=== PATIENT | female | born 1945 | race Caucasian/White ===

== ENCOUNTER 2023-01-17 08:26 | Observation (INO) | payer MEDICARE, OTHER, SELFPAY ==
[2023-01-17] VITALS (24 sets, daily range): BP systolic 122–192; BP diastolic 62–79; PULSE 56–84; RESP 11–22; TEMP 36.2–37.1; O2SAT 93–100; BMI 25.8
--- NOTE | 2023-01-17 | OP_ITS ---
OPERATIVE DATE: ??01/17/2023 PREOPERATIVE DIAGNOSIS:? Hydronephrosis with ureteral calculus and flank pain, left. POSTOPERATIVE DIAGNOSIS:? Hydronephrosis with ureteral calculus and flank pain, left. PROCEDURE:? Cystoscopy, left retrograde pyelogram, left ureteroscopy, holmium laser ablation, ureteral calculus with ureteroscopic stone basket extraction of fragments, followed by a left double J stent placed under fluoroscopic guidance. INDICATIONS:? In short, this is a 77-year-old female with a positive prior history of kidney stone, who presents with about a 7 mm stone in the upper portion of the distal ureter, and she wishes operative intervention with the inherent risks all discussed.? She understood the risks of bleeding, infection, stent pain and need for further surgical intervention.? She understood the risk of anesthesia itself.? Again, she does have sequential compression devices in place and functional on the bilateral lower extremities throughout the case.? She did receive antibiotics. PROCEDURE:? The patient was brought back to the operating room and, after the time out was performed, all were in agreement with the operative plan.? After the successful induction of anesthesia, she was placed in the modified dorsolithotomy position and prepped in the usual fashion with Betadine solution.? She was draped appropriately.? 2% percent Xylocaine jelly was placed per urethra and a well lubricated 22-Ethiopian cystourethroscope with 30 degree lens was then passed into the bladder without difficulty.? John endoscopy revealed no tumors, no stones, no diverticula.? Once into the bladder, left retrograde pyelogram was performed, and there appears to be a filling defect consistent with a distal stone.? I was able to negotiate a 0.035 Glidewire up beyond the stone and into the kidney.? The cystoscope was removed.? I then placed a semi-rigid ureteroscope up the left ureter, alongside the stent.? The stone was subsequently encountered, but I felt it was too large to simply engage and remove with the basket.? In fact, I did make an attempt to do so, but it was becoming stuck.? The stone was released from the basket.? The laser fiber was subsequently passed up through the ureteroscope and, utilizing the holmium laser, the stone was ablated into several pieces and these were subsequently basket extracted.? The larger portions of stone were sent to Pathology for evaluation. Ureteroscopy was carried up to the level of the mid ureter.? Upon completion, the safety wire was left in place, the ureteroscope was removed, the cystoscope was backloaded over the wire, and a 4.7 Ethiopian Bard inlay double J stent was passed into the left kidney.? Wire removed and there was good curl within the kidney and urinary bladder.? The bladder was emptied, scope removed and the procedure was terminated.? She tolerates it well.? She is transferred to the rdover and then back to PACU in satisfactory condition, stable vital signs.? Plan will be for transfer to the floor for postoperative management and hopefully discharge home tomorrow. She can then be seen in the outpatient setting for stent removal within the next 2-3 weeks.? Discussed all this with the patient?s post-op, and he is in agreement with the plan. JOVANI
--- NOTE | 2023-01-17 08:42 | CT_ITS ---
[address] [address] Patient Name: PETER GLASS MRN: [id number] date: 1945 Sex: F Assigned Patient Location: ED.MAIN Current Patient Location: Accession/Order Number: [id number] Exam Date: 01/17/2023 09:58 Report Date: 01/17/2023 10:52 At the request of: LATOYA SÁNCHEZ Procedure: CT abdomen pelvis w con EXAMINATION: CT abdomen pelvis w con HISTORY: left kidney stone , acute left flank pain COMPARISON: CT abdomen pelvis 10/21/2016 TECHNIQUE: Axial, Coronal, and Sagittal images were obtained without and/or with IV contrast as indicated by examination type. Dose reduction techniques were achieved by using automated exposure control and/or adjustment of mA and/or kV according to patient size and/or use of iterative reconstruction technique. FINDINGS: LUNG BASES: No visible pulmonary or pleural disease. LIVER: A few small cysts versus hemangiomas. No enlargement, atrophy, suspicious density, or significant focal lesion. BILIARY: Cholecystectomy. PANCREAS: No lesion, fluid collection, or abnormal duct dilatation. SPLEEN: No enlargement or focal lesion. ADRENALS: No mass or enlargement. KIDNEYS: Mild left hydronephrosis and hydroureter secondary to a partially obstructing 7 x 6 x 5 mm stone within the distal ureter approximately 3 cm from the ureterovesical junction. Unremarkable right kidney and ureter. No appreciable additional urinary tract calculi. BOWEL/MESENTERY: Marked diverticulosis of the sigmoid colon, along with numerous diverticula scattered along the length of the colon. No visible mass, obstruction, or bowel wall thickening. AORTA/VASCULAR: No aneurysm or dissection. RETROPERITONEUM: No mass or adenopathy. LYMPH NODES: No adenopathy. URINARY BLADDER: No visible focal wall thickening, lesion, or calculus. PELVIC ORGANS: Hysterectomy. ABDOMINAL WALL: No mass or hernia. BONES: No bony lesion or fracture. OTHER: Negative. IMPRESSION: 1.Mild left hydronephrosis secondary to a partially obstructing 7 x 6 x 5 mm stone within the distal ureter. 2.Marked sigmoid diverticulosis without acute diverticulitis. Electronically authenticated by: RITA HUERTA Date: 01/17/2023 10:52
--- NOTE | 2023-01-17 08:44 | ED_ITS ---
HPI - General Adult General Chief complaint: Abdominal Pain Stated complaint: FLANK PAIN Time Seen by Provider: 01/17/23 08:42 Source: patient Mode of arrival: Wheelchair Limitations: no limitations History of Present Illness HPI narrative: patient is a 77-year-old female who is presenting to the Emergency Room with left lower back pain this started when she was urinating this morning at 7 AM. Patient's pain has resolved during history and physical at 9 AM. Patient has had a kidney stone in the past, she had stents placed as well. Dr. Hilario was her urologist. Patient is at bedside. Yesterday patient did not heeavy lifting, twisting or turning. Patient has no fever or chills. Patient has no other acute complaints this time. Patient did have some nausea, no vomiting. No chest pain or shortness of breath. Patient like the pain radiated somewhat to the left flank and left lower quadrant. Patient has no urinary frequency or urgency or burning. No other acute complaints this time. Related Data Home Medications Medication Instructions Recorded Confirmed VITAMIIN D 1,000 mg PO DAILY 01/17/23 01/17/23 aspirin 81 mg tablet,delayed 81 mg PO DAILY 01/17/23 01/17/23 release (Adult Aspirin Regimen) atorvastatin 40 mg tablet 40 mg PO DAILY 01/17/23 01/17/23 levothyroxine 75 mcg tablet 75 mcg PO DAILY 01/17/23 01/17/23 lisinopril 10 1 tab PO DAILY 01/17/23 01/17/23 mg-hydrochlorothiazide 12.5 mg tablet metformin 500 mg tablet 500 mg PO .2 TIMES PER DAY 01/17/23 01/17/23 metoprolol succinate 25 mg 25 mg PO Q12H 01/17/23 01/17/23 tablet,extended release 24 hr Allergies Allergy/AdvReac Type Severity Reaction Status Date / Time bacitracin Allergy Severe Hives Verified 01/17/23 08:32 [From Neosporin ([id number])] codeine Allergy Severe Anaphylaxis Verified 01/17/23 08:32 neomycin Allergy Severe Hives Verified 01/17/23 08:32 [From Neosporin ([id number])] polymyxin B Allergy Severe Hives Verified 01/17/23 08:32 [From Neosporin ([id number])] Review of Systems ROS Narrative All systems are negative except as noted/marked. All systems reviewed and otherwise negative. [facility] Social History Smoking status: Never smoker Exam Narrative Exam Narrative: Nurses note and vital signs reviewed and patient is not hypoxic. General: The patient appears well and in no apparent distress. Patient is resting comfortably on cart. Patient is not toxic, lethargic, or listless Skin: Warm, dry, no pallor noted. There is no rash noted. No petechiae, purpura. Head: Normocephalic, atraumatic Eye: Normal conjunctiva, no drainage, EOMI. PERRL Ears, Nose, Mouth, and Throat: oral mucosa is moist. Nares patent. Mouth without vesicles. Cardiovascular: Regular Rate and Rhythm, no murmur, gallop, rub Respiratory: Patient is in no distress, no accessory muscle use, lungs are clear to auscultation, no wheezing, rales or rhonchi Back: patient currently has no tenderness to palpation to the left lumbar area, rash, otherwise non-tender, no CVA tenderness bilaterally to percussion. No CT LS midline pain GI: soft, no tenderness to palpation, no masses appreciated. No rebound, guarding, or rigidity noted. No flank pain bilateral, No distention. Mild suprapubic tenderness to palpation. Musculoskeletal: Patient has full range of motion of all of the extremities, no motor, sensory, or focal neurological deficits Neurological: A&O x3, normal speech Psychiatric: Cooperative Constitutional Vital Signs - 24 hr 01/17/23 08:33 01/17/23 08:34 01/17/23 08:40 Temperature 98.1 F Pulse Rate 62 Pulse Rate [Monitor] 73 Respiratory Rate 18 22 Blood Pressure Blood Pressure [Left Arm] 122/62 H Pulse Oximetry 100 99 99 Oxygen Delivery Method Room Air 01/17/23 08:50 01/17/23 09:02 01/17/23 09:10 Temperature Pulse Rate 57 L 84 59 L Pulse Rate [Monitor] Respiratory Rate 21 13 Blood Pressure Blood Pressure [Left Arm] Pulse Oximetry 99 98 Oxygen Delivery Method 01/17/23 09:20 01/17/23 09:30 01/17/23 09:40 Temperature Pulse Rate 57 L 65 74 Pulse Rate [Monitor] Respiratory Rate 15 20 17 Blood Pressure Blood Pressure [Left Arm] Pulse Oximetry 98 96 97 Oxygen Delivery Method 01/17/23 09:50 01/17/23 10:13 01/17/23 10:19 Temperature Pulse Rate 57 L 71 59 L Pulse Rate [Monitor] Respiratory Rate 20 22 11 L Blood Pressure 169/72 H Blood Pressure [Left Arm] Pulse Oximetry 96 93 L 97 Oxygen Delivery Method 01/17/23 10:19 Temperature Pulse Rate 66 Pulse Rate [Monitor] Respiratory Rate 14 Blood Pressure Blood Pressure [Left Arm] Pulse Oximetry 99 Oxygen Delivery Method Course Vital Signs Vital signs: Vital Signs Temperature 98.1 F 01/17/23 08:33 Pulse Rate 73 01/17/23 08:33 Respiratory Rate 18 01/17/23 08:33 Blood Pressure 122/62 H 01/17/23 08:33 Pulse Oximetry 100 01/17/23 08:33 Oxygen Delivery Method Room Air 01/17/23 08:33 Temperature 98.1 F 01/17/23 08:33 Pulse Rate 66 01/17/23 10:19 Respiratory Rate 14 01/17/23 10:19 Blood Pressure 169/72 H 01/17/23 10:19 Pulse Oximetry 99 01/17/23 10:19 Oxygen Delivery Method Room Air 01/17/23 08:33 Medical Decision Making MDM Narrative Medical decision making narrative: [address] Marquez, patient is to remain nothing by mouth and make sure that every time patient urinates she is urinating uses a strainer. This information was given to the patient and Nati RN. This information will be passed by Anita RN to the nursing floor as well. patient is going to be going to surgery later this afternoon because the chances or passing this stone at the distal ureter, 3 cm before the left UVJ is very small. Patient and are aware of this. Patient's potassium is 3.2, she was going to be given potassium to drink but now she will not be secondary to surgery. Dr. Marquez and other recommendations at this time Patient will be admitted to Dr. Cox. Dr. Cox is aware to replace potassium prior to discharge. He is aware of urine strainers every time they patient urinates. Also aware of keeping patient nothing by mouth. Patient has not used any other pain medication or nausea medication besides initial Toradol and Zofran given. Patient did receive IV fluids. Patient be any creatinine 29/08. Patient is concerned about her blood sugars, she is diabetic. Patient's blood sugars have been normal so far. They will be checked as needed, patient is aware of this. Patient be admitted to [facility] for surgery occurring later today. Medical Records Medical records narrative: CT report showed a left kidney stone in the distal ureter, 3 cm before the left UVJ. 7 x 6 x 5 cm, mild hydronephrosis. Please see the official report. Lab Data Lab results reviewed: Yes I reviewed the patient's lab results Labs: Lab Results 01/17/23 01/17/23 Range/Units 08:40 09:00 WBC 6.4 (4.0-11.0) 10^3/uL RBC 4.08 L (4.20-5.40) 10^6/uL Hgb 12.6 (12.0-16.0) g/dL Hct 38.4 (36.0-48.0) % MCV 94.1 (81.0-99.0) fL MCH 30.9 (26.7-34.0) pg MCHC 32.8 (29.9-35.2) g/dL RDW 12.8 (11.0-15.0) % Plt Count 243 (150-450) 10^3/uL MPV 10.9 (9.5-13.5) fL Neut % (Auto) 42.4 L (43.0-75.0) % Lymph % (Auto) 41.1 (20.5-60.0) % [facility] % (Auto) 8.0 (1.7-12.0) % Eos % (Auto) 7.1 H (0.9-7.0) % Baso % (Auto) 0.6 (0.2-2.0) % Neut # (Auto) 2.7 (1.4-6.5) 10^3/uL Lymph # (Auto) 2.6 (1.2-3.8) 10^3/uL [facility] # (Auto) 0.5 (0.3-0.8) 10^3/uL Eos # (Auto) 0.5 (0.0-0.7) 10^3/uL Baso # (Auto) 0.0 (0.0-0.1) 10^3/uL Abs Immat Gran (auto) 0.05 H (0.00-0.03) 10^3/uL Imm/Tot Granulo (auto) 0.8 H (0.0-0.5) % Sodium 139 (136-145) mmol/L Potassium 3.2 L (3.5-5.1) mmol/L Chloride 103 (98-107) mmol/L Carbon Dioxide 26.2 (21.0-32.0) mmol/L Anion Gap 13.0 BUN 19.0 H (7.0-18.0) mg/dL Creatinine 1.00 (0.55-1.02) mg/dL Est GFR ( Amer) >60 (>=60) Est GFR (Non-Af Amer) 53 L (>=60) BUN/Creatinine Ratio 19.0 Glucose 190 H (74-106) mg/dL Lactate 2.7 H* (0.4-2.0) mmol/L Calcium 9.1 (8.5-10.1) mg/dL Total Bilirubin 0.5 (0.2-1.0) mg/dL AST 17 (15-37) U/L ALT 24 (14-59) U/L Alkaline Phosphatase 66 (46-116) U/L Troponin I High Sens 6.0 (4.0-51.3) pg/mL Total Protein 7.0 (6.4-8.2) g/dL Albumin 3.7 (3.4-5.0) g/dL Globulin 3.3 g/dL Albumin/Globulin Ratio 1.1 Lipase 107.0 (73.0-393.0) U/L Urine Color Lt. yellow (YELLOW) Urine Clarity Clear (CLEAR) Urine pH 7.0 (5.0-9.0) Ur Specific [place] 1.020 (1.005-1.025) Urine Protein Trace (NEG/TRACE) mg/dL Urine Glucose (UA) Negative (NEGATIVE) mg/dL Urine Ketones Negative (NEGATIVE) mg/dL Urine Occult Blood Large A (NEGATIVE) Urine Nitrite Negative (NEGATIVE) Urine Bilirubin Negative (NEGATIVE) Urine Urobilinogen 1.0 (0.2-1.0) EU/dL Ur Leukocyte Esterase Negative (NEGATIVE) Urine RBC 50-75 A (0-2) #/HPF Urine WBC None seen (NONE SEEN) #/HPF Ur Squamous Epith Cells Few A (NONE/RARE) #/LPF Urine Crystals None seen (None Seen) #/HPF Urine Bacteria None seen (NONE SEEN) #/HPF Urine Casts None seen (NONE SEEN) #/LPF Urine Mucus None seen (NONE SEEN) Ur Culture Indicated? No ECG Data Attestation: I personally reviewed and interpreted this ECG as follows: Interpretation: EKG interpretation. Normal sinus rhythm at 59 beats a minute. Left axis deviation. No acute ST elevation, no acute ectopy. QTC of 406. Incomplete right bundle-branch block noted. Discharge Plan Discharge Chief Complaint: Abdominal Pain Clinical Impression: Kidney stone on left side, Hypokalemia Patient Disposition: Admitted as Observation Time of Disposition Decision: 12:45 Condition: Fair
[2023-01-17] MEDS: KETOROLAC TROMETHAMINE 30 MG/ML VIAL 15 MG IM (09:07)
[2023-01-17] MEDS: 0.9 % SODIUM CHLORIDE 1,000 ML 999 ML IV (09:07)
[2023-01-17] MEDS: ONDANSETRON PF 4 MG/2 ML VIAL IV (09:08)
[2023-01-17 09:18] LABS: Basophils Percent Auto 0.6 % (0.2-2.0); Eosinophils Absolute Auto 0.5 10^3/uL (0.0-0.7); Eosinophils Percent Auto 7.1 % (0.9-7.0); Hematocrit 38.4 % (36.0-48.0); Hemoglobin 12.6 g/dL (12.0-16.0); Immature Granulocytes Abs Auto 0.05 10^3/uL (0.00-0.03); Immature Granulocytes Pct Auto 0.8 % (0.0-0.5); Lymphocytes Absolute Auto 2.6 10^3/uL (1.2-3.8); Lymphocytes Percent Auto 41.1 % (20.5-60.0); Mean Corpuscular HGB Conc 32.8 g/dL (29.9-35.2); Mean Corpuscular Hemoglobin 30.9 pg (26.7-34.0); Mean Corpuscular Volume 94.1 fL (81.0-99.0); Mean Platelet Volume 10.9 fL (9.5-13.5); Monocytes Absolute Auto 0.5 10^3/uL (0.3-0.8); Neutrophils Absolute Auto 2.7 10^3/uL (1.4-6.5); Neutrophils Percent Auto 42.4 % (43.0-75.0); Platelet Count 243 10^3/uL (150-450); Red Blood Count 4.08 10^6/uL (4.20-5.40); Red Cell Distribution Width 12.8 % (11.0-15.0); White Blood Count 6.4 10^3/uL (4.0-11.0)
--- NOTE | 2023-01-17 09:25 | ECG_ITS ---
[facility] Test Date: 2023-01-17 Pat Name: PETER GLASS Department: Room: - Gender: Female Pharmacist Manager: : 1945 Requested By: HUGO SONI Order Number: [id number] Reading MD: HUGO SONI Measurements Intervals [place] Rate: 59 P: 26 VT: 160 QRS: -11 QRSD: 96 T: 3 QT: 406 QTc: 406 Interpretive Statements 1100 Sinus rhythm 2440 Incomplete right bundle branch block 8102 Low QRS voltage in chest leads 9130 borderline ECG No previous ECG available for comparison Electronically Signed On 01-18-2023 20:53:37 EDT by HUGO SONI
[2023-01-17 09:34] LABS: Alanine Aminotransferase 24 U/L (14-59); Albumin Globulin Ratio 1.1; Albumin Level 3.7 g/dL (3.4-5.0); Alkaline Phosphatase 66 U/L (46-116); Aspartate Amino Transferase 17 U/L (15-37); Bilirubin Total 0.5 mg/dL (0.2-1.0); Calcium 9.1 mg/dL (8.5-10.1); Carbon Dioxide 26.2 mmol/L (21.0-32.0); Chloride 103 mmol/L (98-107); Estimated GFR (African America >60 (>=60); Estimated GFR (Non-African Ame 53 (>=60); Globulin 3.3 g/dL; Glucose 190 mg/dL (74-106); Potassium 3.2 mmol/L (3.5-5.1); Sodium 139 mmol/L (136-145)
[2023-01-17 09:37] LABS: Lactate/Lactic Acid 2.7 mmol/L (0.4-2.0)
[2023-01-17 10:27] LABS: Bilirubin Urine NEGATIVE (NEGATIVE); Blood Urine LARGE (NEGATIVE); Clarity Urine CLEAR (CLEAR); Color Urine LT. YELLOW (YELLOW); Glucose Urine UA NEGATIVE (NEGATIVE); Ketones Urine NEGATIVE (NEGATIVE); Leukocyte Esterase Urine NEGATIVE (NEGATIVE); Nitrite Urine NEGATIVE (NEGATIVE); Protein Urine TRACE mg/dL (NEG/TRACE)
[2023-01-17 10:33] LABS: Bacteria Urine NONE SEEN #/HPF (NONE SEEN); Cast Seen? NONE SEEN #/LPF (NONE SEEN); Crystals Seen? None Seen #/HPF (None Seen); Mucus Urine NONE SEEN (NONE SEEN); RBC Urine 50-75 #/HPF (0-2); Squamous Epithelial Cell Urine FEW #/LPF (NONE/RARE); WBC Urine NONE SEEN #/HPF (NONE SEEN)
[2023-01-17 10:34] LABS: Urine Culture Indicated NO
--- NOTE | 2023-01-17 13:45 | XR_ITS ---
[address] [address] Patient Name: PETER GLASS MRN: [id number] date: 1945 Sex: F Assigned Patient Location: MS Current Patient Location: Accession/Order Number: [id number] Exam Date: 01/17/2023 13:45 Report Date: 01/17/2023 16:53 At the request of: NICOLE MCHUGH Procedure: XR urethrogram retrograde EXAMINATION: XR urethrogram retrograde HISTORY: LEFT URETERAL STONE COMPARISON: No relevant comparison available. FINDINGS: A single intraprocedural spot fluoroscopic image shows retrograde filling of the left ureter with contrast; no abnormal dilation or appreciable filling defect. IMPRESSION: 1. No abnormal dilation or appreciable filling defect within the left ureter. Electronically authenticated by: RITA HUERTA Date: 01/17/2023 16:53
[2023-01-17] MEDS: 0.9 % SODIUM CHLORIDE 1,000 ML 1000 ML IV (14:56)
[2023-01-17] MEDS: GENTAMICIN SULFATE 80 MG in 0.9 % SODIUM CHLORIDE 100 ML 204 MG IV (15:30)
--- NOTE | 2023-01-17 15:55 | MISC_ITS ---
CONSULTATION DATE: ?? REASON FOR CONSULTATION:? Left sided flank pain and left ureteral calculus. HISTORY:? Thanks very much for consultation on Ms. Copeland, who is a 77-year-old white female, who does have a prior history of kidney stones.? She presented to the ER and was subsequently admitted with 10/10 pain, which was located in the left flank.? She was seen in the ER and stabilized and treated with narcotic analgesics.? CT scan has demonstrated the presence of about a 7 mm stone in the left lower ureter.? Urologic consultation was requested.? She did have a remote history of kidney stones and was treated by Dr. Hilario, I believe.? She has had no fever or chills associated.? The past medical history, past surgical history, systems review, medications, allergies, social history and family history are as noted in the admission H&P dictated by Dr. Cox and are unchanged. PAST MEDICAL HISTORY:? Includes diabetes mellitus, hypertension, hypothyroidism, hyperlipidemia. MEDICATIONS:? As listed and include aspirin, atorvastatin, levothyroxine, lisinopril, hydrochlorothiazide, metformin, metoprolol, Levaquin. ALLERGIES:? To Bacitracin, codeine, neomycin and polymyxin B.? PHYSICAL EXAM:? On physical examination, she appeared to be in moderate distress from the pain, although she did have narcotic analgesics on board. HEENT is within normal limits. The neck is supple. Heart:? Regular rate and rhythm. Lungs:? Clear. Abdomen:? Soft, non-tender.? Positive left sided flank tenderness to palpation.? The rest of the abdomen demonstrates no peritoneal signs, no suprapubic tenderness or fullness to palpation, no inguinal adenopathy, normal external female genitalia.? Extremities:? Without cyanosis, peripheral edema. Neuro:? She is awake, alert, oriented and cooperative to examination.? LABORATORY DATA:? As noted.? She did not have any evidence of renal insufficiency. IMPRESSION:? 1.? Hydronephrosis with ureteral calculus (N13.2). 2.? Left sided flank pain (R10). PLAN AND RECOMMENDATIONS:? Due to the severity of the pain, its location and the size of the stone, I feel that she would have difficulty passing this on her own.? Being female, she does have an increased risk of associated UTI, especially given her diabetes mellitus, even though it is not appear to be so currently.? I feel that operative intervention is indicated.? I have discussed all this with the patient and her , and they were in agreement with that plan.? They understood the risk of anesthesia itself with bleeding, infection, stent pain, heart and lung problems under anesthesia.? Despite these risks, they want me to proceed.? She did receive preoperative antibiotics, and she does have sequential compression devices in place for the surgery.? She knows that the stent will most likely be placed postoperatively, and if the stone can be removed today, the stent will not be in more than a couple weeks.? If the stone cannot be removed, further intervention with perhaps ureteroscopy and/or ESWL would have to be considered.? Thank you very much for the consultation. JOVANI
[2023-01-17] MEDS: IOHEXOL 240 MG/ML - 50 ML VIAL INJ (16:07)
[2023-01-17] MEDS: HYOSCYAMINE SULFATE 0.125 MG TAB.SUBL SL (18:40)
[2023-01-17] MEDS: HYDRALAZINE HCL 20 MG/ML VIAL 10 MG IVP (18:40)
[2023-01-17] MEDS: METOPROLOL SUCCINATE 25 MG TAB.ER.24H PO (18:40)
[2023-01-17 18:42] LABS: Glucometer 143 mg/dL (74-106)
[2023-01-17] MEDS: MORPHINE SULFATE 4 MG/ML VIAL 2 MG IV (19:15)
[2023-01-17 20:24] LABS: Glucometer 214 mg/dL (74-106)
[2023-01-18] MEDS: HYDROMORPHONE HCL 0.5 MG/0.5 ML SYRINGE IV (05:07)
[2023-01-18 06:00] VITALS: BP 180/70; PULSE 71; RESP 20; TEMP 36.6; O2SAT 92
[2023-01-18 06:48] LABS: Alanine Aminotransferase 25 U/L (14-59); Albumin Globulin Ratio 1.1; Albumin Level 3.3 g/dL (3.4-5.0); Alkaline Phosphatase 56 U/L (46-116); Anion Gap 3.5; Aspartate Amino Transferase 14 U/L (15-37); BUN Creatinine Ratio 22.7; Bilirubin Total 0.5 mg/dL (0.2-1.0); Calcium 8.8 mg/dL (8.5-10.1); Carbon Dioxide 24.3 mmol/L (21.0-32.0); Chloride 114 mmol/L (98-107); Estimated GFR (African America >60 (>=60); Estimated GFR (Non-African Ame >60 (>=60); Glucose 184 mg/dL (74-106); Potassium 3.8 mmol/L (3.5-5.1); Sodium 138 mmol/L (136-145); Total Protein 6.3 g/dL (6.4-8.2)
[2023-01-18 07:38] LABS: Glucometer 168 mg/dL (74-106)
[2023-01-18] MEDS: ATORVASTATIN CALCIUM 40 MG TABLET PO (10:01)
[2023-01-18] MEDS: LISINOPRIL 10 MG TABLET PO (10:01)
[2023-01-18] MEDS: CHOLECALCIFEROL (VITAMIN D3) 25 MCG/1,000 UNITS TABLET PO (10:01)
[2023-01-18] MEDS: HYDROCHLOROTHIAZIDE 25 MG TABLET 12.5 MG PO (10:01)
[2023-01-18] MEDS: ASPIRIN 81 MG TABLET.DR PO (10:02)
[2023-01-18] MEDS: LEVOTHYROXINE SODIUM 75 MCG TABLET PO (10:02)
[2023-01-18] MEDS: METOPROLOL SUCCINATE 25 MG TAB.ER.24H PO (10:02)
[2023-01-18 10:07] VITALS: BP 165/65; PULSE 73
[2023-01-18 11:30] VITALS: O2SAT 97
--- NOTE | 2023-01-18 14:46 | P.HP_ITS ---
H&P: HPI History of Present Illness Chief complaint: FLANK PAIN Narrative: HPI and Hospital Course: 77 y o female presented with acute left sided flank pain, 10/10 in intensity, persistent, sharp that woke her up and went on for 2 hours until she was seen in ED and improved with narcotics and IV fluids. She denied nausea, vomiting or hematuria on admission. on evaluation, she was discovered to have left ureteral stone for which she was taken to OR by urology and had stent placed. She was admitted overnight for observation for pain control. This morning, she reports she has noticed hematura and burning sensation with urination. Her left sided pain is gone but she has mild supra pubic discomfort. Denies nausea/vomiting or fever. Urinating well. Admission Diagnosis Left flank pain from ureteral stone with left hydronephrosis T2 DM HTN Hypothyroidism HLD Discharge Diagnosis same as above Discharge Condition stable Review of Systems ROS Status of ROS 10 or more systems reviewed and unremarkable except as noted in history and below [facility] Medical History (Updated 01/18/23 @ 14:58 by Shaikh Nigel MD) Surgical History (Updated 01/17/23 @ 12:49 by Anita Arnett RN) Social History Smoking status: Never smoker Meds Home Medications and Allergies Home Medications Medication Instructions Recorded Confirmed Type VITAMIIN D 1,000 mg PO DAILY 01/17/23 01/17/23 History aspirin 81 mg tablet,delayed 81 mg PO DAILY 01/17/23 01/17/23 History release (Adult Aspirin Regimen) atorvastatin 40 mg tablet 40 mg PO DAILY 01/17/23 01/17/23 History levothyroxine 75 mcg tablet 75 mcg PO DAILY 01/17/23 01/17/23 History lisinopril 10 1 tab PO DAILY 01/17/23 01/17/23 History mg-hydrochlorothiazide 12.5 mg tablet metformin 500 mg tablet 500 mg PO .2 TIMES PER DAY 01/17/23 01/17/23 History metoprolol succinate 25 mg 25 mg PO Q12H 01/17/23 01/17/23 History tablet,extended release 24 hr levofloxacin 750 mg tablet 750 mg PO DAILY 7 days #7 tabs 01/18/23 Rx ondansetron 4 mg disintegrating 4 mg PO DAILY PRN nausea and 01/18/23 Rx tablet vomiting 4 days #10 tabs tamsulosin 0.4 mg capsule (Flomax) 0.4 mg PO DAILY #14 caps 01/18/23 Rx Allergies Allergy/AdvReac Type Severity Reaction Status Date / Time bacitracin Allergy Severe Hives Verified 01/17/23 08:32 [From Neosporin ([id number])] codeine Allergy Severe Anaphylaxis Verified 01/17/23 08:32 neomycin Allergy Severe Hives Verified 01/17/23 08:32 [From Neosporin ([id number])] polymyxin B Allergy Severe Hives Verified 01/17/23 08:32 [From Neosporin ([id number])] Exam Constitutional Vital Signs - 24 hr 01/17/23 16:25 01/17/23 16:30 01/17/23 16:21 Temperature 97.1 F L Pulse Rate 72 68 Respiratory Rate 18 14 Blood Pressure 183/76 H 188/70 H Blood Pressure [Left Arm] Pulse Oximetry 96 97 Oxygen Delivery Method Room Air Room Air 01/17/23 16:22 01/17/23 16:26 01/17/23 16:31 Temperature Pulse Rate 67 59 L 61 Respiratory Rate 18 12 15 Blood Pressure 183/79 H 192/77 H 175/72 H Blood Pressure [Left Arm] Pulse Oximetry 97 98 96 Oxygen Delivery Method 01/17/23 16:31 01/17/23 16:36 01/17/23 16:45 Temperature Pulse Rate 60 56 L Respiratory Rate 20 15 Blood Pressure 175/72 H 191/72 H Blood Pressure [Left Arm] Pulse Oximetry 99 98 Oxygen Delivery Method Room Air 01/17/23 16:40 01/17/23 19:20 01/17/23 22:00 Temperature 98.6 F Pulse Rate 59 L 73 Respiratory Rate 11 L 16 Blood Pressure 189/76 H Blood Pressure [Left Arm] 178/73 H 167/75 H Pulse Oximetry 98 94 L Oxygen Delivery Method Room Air 01/17/23 20:09 01/18/23 06:00 01/18/23 10:07 Temperature 97.9 F Pulse Rate 71 73 Respiratory Rate 20 Blood Pressure Blood Pressure [Left Arm] 180/70 H 165/65 H Pulse Oximetry 93 L 92 L Oxygen Delivery Method Room Air Room Air 01/18/23 11:30 Temperature Pulse Rate Respiratory Rate Blood Pressure Blood Pressure [Left Arm] Pulse Oximetry 97 Oxygen Delivery Method Room Air Documenting provider has reviewed patient's vital signs: yes Common normals: no apparent distress and healthy appearing General appearance: cooperative and comfortable HENMT Common normals: normocephalic and head/scalp atraumatic Eye Common normals: conjunctivae normal and no scleral icterus Respiratory Common normals: normal respiratory effort, no use of accessory muscles and clear to auscultation bilaterally Cardio Common normals: regular rate, regular rhythm, S1 normal heart sound and S2 normal heart sound GI Common normals: Normal to inspection, nondistended, normoactive bowel sounds present Common normals: no CVA tenderness Extremity Common normals: normal to inspection and no clubbing, cyanosis or edema Neuro Common normals: oriented x3, moves all extremities, no focal motor deficits and no sensory deficits noted Psych Common normals: mental status grossly normal, cooperative, denies homicidal ideation and denies suicidal ideation Results Labs Labs: [facility] 01/18/23 05:30 Sodium 138 Potassium 3.8 Chloride 114 H Carbon Dioxide 24.3 BUN 20.0 H Creatinine 0.88 Glucose 184 H Calcium 8.8 Liver Function 01/18/23 Range/Units 05:30 Total Bilirubin 0.5 (0.2-1.0) mg/dL AST 14 L (15-37) U/L ALT 25 (14-59) U/L Alkaline Phosphatase 56 (46-116) U/L Albumin 3.3 L (3.4-5.0) g/dL Assessment and Plan Assessment and Plan (1) Hypertension: Assessment and Plan: Poorly controlled on admission, better now. Resume home meds. 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 F/u with Urology as outpatient for stent removal Empirically treating with an oral abx - Levaquin -medication called in (5) Type 2 diabetes mellitus: Assessment and Plan: C/w metformin as outpatient Qualifiers: Diabetes mellitus longwall foreman insulin use: without longwall foreman use Diabetes mellitus complication status: without complication Qualified Code(s): E11.9 - Type 2 diabetes mellitus without complications
--- NOTE | 2023-01-22 11:01 | CM.DCFOLLOWU ---
Person spoke with: How are you feeling? patient feeling well, felt her sugars were high, called her PCP and has to call back Friday if still high How is your pain? pain doing better Did you understand your discharge instructions? yes Do you have any questions about your discharge instructions? no, dc instructions did not include phone number for Dr. Marquez to schedule follow up Were you given any prescriptions at discharge? yes Were you able to get your prescriptions filled? yes Do you understand how to take your medications as ordered? yes Do you have any questions about your follow up appointment and do you plan to keep your follow up appointment? PCP is on vacation for 2 weeks, but she can contact him. Follow up with urology scheduled Is there anything else that you would like to discuss? No Questions/Comments/Concerns/Other: D/C instructions did not include phone number for urologist, Dr. Marquez.
[2023-01-22 21:07] LABS: Calcium Oxalate Dihydrate 20 % (.); Calcium Oxalate Monohydrate 80 % (.)
== END 2023-01-18 15:18 | disposition home or self-care (01) ==
LOC: ER 12:46 → MS 12:55
PROVIDERS: Family Medicine; Urology; Admitting Provider Internal Medicine; Emergency Provider Emergency Medicine; PCP Internal Medicine; Visit Provider Internal Medicine
PROC: (CPT 52356; principal; 2023-01-17 15:00)
DX: N13.2 Hydronephrosis with renal and ureteral calculous obstruction (principal); E11.9 Type 2 diabetes mellitus without complications; I10 Essential (primary) hypertension; E03.9 Hypothyroidism, unspecified; E78.5 Hyperlipidemia, unspecified; E87.6 Hypokalemia; Z87.442 Personal history of urinary calculi; Z79.82 Long term (current) use of aspirin; Z79.890 Hormone replacement therapy; Z79.899 Other long term (current) drug therapy; Z79.84 Long term (current) use of oral hypoglycemic drugs
CPT/HCPCS: 52356; 36415; 74177; 74420; 80053; 81001; 82365; 83605; 83690; 84484; 85025; 93005; 94761; 96372; 96374; 96375; 97161; 99285; 99999; G0378; J1170; J2704; Q9966; Q9967

== ENCOUNTER 2023-01-25 13:39 | Emergency (ER) | payer MEDICARE, OTHER, SELFPAY ==
[2023-01-25 13:45] VITALS: BP 161/73; PULSE 79; RESP 18; TEMP 36.6; O2SAT 96; BMI 25.0
--- NOTE | 2023-01-25 14:11 | ECG_ITS ---
[facility] Test Date: 2023-01-25 Pat Name: PETER GLASS Department: Room: - Gender: Female Special Services Director: : 1945 Requested By: [id number] Order Number: [id number] Reading MD: KAILEE STRONG Measurements Intervals [place] Rate: 74 P: 38 SD: 182 QRS: 18 QRSD: 88 T: 26 QT: 394 QTc: 421 Interpretive Statements 1100 Sinus rhythm Non-Specific T wave inversion in III 9110 normal ECG Compared to ECG 01/17/2023 08:36:49 Incomplete right bundle-branch block no longer present Electronically Signed On 01-27-2023 7:49:26 EDT by KAILEE STRONG
--- NOTE | 2023-01-25 14:14 | ED.GENADUL1 ---
HPI - General Adult General Chief complaint: Nausea/Vomiting/Diarrhea Stated complaint: HAVING REACTION AFTER KIDNEY STONE REMOVAL SURG Time Seen by Provider: 01/25/23 14:11 Source: patient and family Mode of arrival: walk-in Limitations: physical limitation History of Present Illness HPI narrative: patient recently had a procedure for left hydronephrosis and a large kidney stone. She currently has a stent in place. She does not know that she is having a fever but she's not had shakes or chills. She says she feels weak and fatigued and has a dry mouth. She's not seen blood in her urine. Does not have chest pain shortness of breath or upper respiratory type symptoms. Related Data Home Medications Medication Instructions Recorded Confirmed VITAMIIN D 1,000 mg PO DAILY 01/17/23 01/17/23 aspirin 81 mg tablet,delayed 81 mg PO DAILY 01/17/23 01/17/23 release (Adult Aspirin Regimen) atorvastatin 40 mg tablet 40 mg PO DAILY 01/17/23 01/17/23 levothyroxine 75 mcg tablet 75 mcg PO DAILY 01/17/23 01/17/23 lisinopril 10 1 tab PO DAILY 01/17/23 01/17/23 mg-hydrochlorothiazide 12.5 mg tablet metformin 500 mg tablet 500 mg PO .2 TIMES PER DAY 01/17/23 01/17/23 metoprolol succinate 25 mg 25 mg PO Q12H 01/17/23 01/17/23 tablet,extended release 24 hr Previous Rx's Medication Instructions Recorded levofloxacin 750 mg tablet 750 mg PO DAILY 7 days #7 tabs 01/18/23 ondansetron 4 mg disintegrating 4 mg PO DAILY PRN nausea and 01/18/23 tablet vomiting 4 days #10 tabs tamsulosin 0.4 mg capsule (Flomax) 0.4 mg PO DAILY #14 caps 01/18/23 Allergies Allergy/AdvReac Type Severity Reaction Status Date / Time bacitracin Allergy Severe Hives Verified 01/25/23 13:59 [From Neosporin ([id number])] codeine Allergy Severe Anaphylaxis Verified 01/25/23 13:59 neomycin Allergy Severe Hives Verified 01/25/23 13:59 [From Neosporin ([id number]-[id number])] NSAIDS (Non-Steroidal Allergy Severe Swelling Verified 01/25/23 13:59 Anti-Inflamma of Lip/Tongue/Throat polymyxin B Allergy Severe Hives Verified 01/25/23 13:59 [From Neosporin ([id number])] [facility] Medical History (Updated 01/25/23 @ 16:28 by Diallo Giraldo MD) Surgical History (Updated 01/17/23 @ 12:49 by Anita Arnett RN) Social History Smoking status: Never smoker Exam Narrative Exam Narrative: awake alert, adequate historian. Does not appear in obvious distress. Vitals as noted. Here with her . Constitutional Vital Signs - 24 hr 01/25/23 13:45 Temperature 97.9 F Pulse Rate [Monitor] 79 Respiratory Rate 18 Blood Pressure [Right Arm] 161/73 H Pulse Oximetry 96 Oxygen Delivery Method Room Air Documenting provider has reviewed patient's vital signs: yes Common normals: no apparent distress and average body habitus Exam limitations: no altered mental status General appearance: cooperative HENMT Common normals: normocephalic and head/scalp atraumatic Face and sinus: normal facial exam and face symmetric Respiratory Common normals: normal respiratory effort, no retractions, no use of accessory muscles and clear to auscultation bilaterally Effort & inspection: able to speak in complete sentences GI Common normals: Normal to inspection, nondistended, normoactive bowel sounds present, soft to palpation and non-tender Extremity Common normals: normal to inspection, no calf tenderness and no pedal edema Course Vital Signs Vital signs: Vital Signs Temperature 97.9 F 01/25/23 13:45 Pulse Rate 79 01/25/23 13:45 Respiratory Rate 18 01/25/23 13:45 Blood Pressure 161/73 H 01/25/23 13:45 Pulse Oximetry 96 01/25/23 13:45 Oxygen Delivery Method Room Air 01/25/23 13:45 Temperature 97.9 F 01/25/23 13:45 Pulse Rate 79 01/25/23 13:45 Respiratory Rate 18 01/25/23 13:45 Blood Pressure 161/73 H 01/25/23 13:45 Pulse Oximetry 96 01/25/23 13:45 Oxygen Delivery Method Room Air 01/25/23 13:45 Medical Decision Making MDM Narrative Medical decision making narrative: there was a delay in obtaining the microscopic urinalysis however the assistant laboratory director verbally said that there was only 0-2 white blood cells. She finished her Levaquin yesterday. Her laboratory testing and clinical history would suggest volume depletion and she does feel better after the liter of saline was given. I do not see indications for further antibiotics. Have her follow-up with her primary care doctor early this week and she is to take increasing fluids at home. Lab Data Labs: Lab Results 01/25/23 01/25/23 Range/Units 14:00 15:20 WBC 10.6 (4.0-11.0) 10^3/uL RBC 4.17 L (4.20-5.40) 10^6/uL Hgb 13.0 (12.0-16.0) g/dL Hct 39.0 (36.0-48.0) % MCV 93.5 (81.0-99.0) fL MCH 31.2 (26.7-34.0) pg MCHC 33.3 (29.9-35.2) g/dL RDW 12.7 (11.0-15.0) % Plt Count 314 (150-450) 10^3/uL MPV 10.7 (9.5-13.5) fL Neut % (Auto) 66.9 (43.0-75.0) % Lymph % (Auto) 20.5 (20.5-60.0) % Tate % (Auto) 7.7 (1.7-12.0) % Eos % (Auto) 3.0 (0.9-7.0) % Baso % (Auto) 0.6 (0.2-2.0) % Neut # (Auto) 7.1 H (1.4-6.5) 10^3/uL Lymph # (Auto) 2.2 (1.2-3.8) 10^3/uL Tate # (Auto) 0.8 (0.3-0.8) 10^3/uL Eos # (Auto) 0.3 (0.0-0.7) 10^3/uL Baso # (Auto) 0.1 (0.0-0.1) 10^3/uL Abs Immat Gran (auto) 0.14 H (0.00-0.03) 10^3/uL Imm/Tot Granulo (auto) 1.3 H (0.0-0.5) % Sodium 136 (136-145) mmol/L Potassium 3.7 (3.5-5.1) mmol/L Chloride 99 (98-107) mmol/L Carbon Dioxide 26.4 (21.0-32.0) mmol/L Anion Gap 14.3 BUN 27.0 H (7.0-18.0) mg/dL Creatinine 1.12 H (0.55-1.02) mg/dL Est GFR ( Amer) 57 L (>=60) Est GFR (Non-Af Amer) 47 L (>=60) BUN/Creatinine Ratio 24.1 Glucose 128 H (74-106) mg/dL Lactate 2.7 H* (0.4-2.0) mmol/L Calcium 9.6 (8.5-10.1) mg/dL Total Bilirubin 0.8 (0.2-1.0) mg/dL AST 19 (15-37) U/L ALT 23 (14-59) U/L Alkaline Phosphatase 66 (46-116) U/L Troponin I High Sens 4.8 (4.0-51.3) pg/mL Total Protein 7.8 (6.4-8.2) g/dL Albumin 3.8 (3.4-5.0) g/dL Globulin 4.0 g/dL Albumin/Globulin Ratio 0.9 Urine Color Yellow (YELLOW) Urine Clarity Clear (CLEAR) Urine pH 6.0 (5.0-9.0) Ur Specific [place] 1.010 (1.005-1.025) Urine Protein Trace (NEG/TRACE) mg/dL Urine Glucose (UA) Negative (NEGATIVE) mg/dL Urine Ketones Negative (NEGATIVE) mg/dL Urine Occult Blood Large A (NEGATIVE) Urine Nitrite Negative (NEGATIVE) Urine Bilirubin Negative (NEGATIVE) Urine Urobilinogen 0.2 (0.2-1.0) EU/dL Ur Leukocyte Esterase Trace A (NEGATIVE) Urine RBC 10-20 A (0-2) #/HPF Urine WBC 0-2 A (NONE SEEN) #/HPF Ur Squamous Epith Cells None seen (NONE/RARE) #/LPF Urine Crystals None seen (None Seen) #/HPF Urine Bacteria Trace A (NONE SEEN) #/HPF Urine Casts None seen (NONE SEEN) #/LPF Urine Mucus None seen (NONE SEEN) Ur Culture Indicated? No Discharge Plan Discharge Chief Complaint: Nausea/Vomiting/Diarrhea Clinical Impression: Extracellular fluid volume depletion Patient Disposition: Home, Self-Care Time of Disposition Decision: 16:27 Prescriptions / Home Meds: No Action levothyroxine 75 mcg tablet 75 mcg PO DAILY metoprolol succinate 25 mg tablet extended release 24 hr 25 mg PO Q12H atorvastatin 40 mg tablet 40 mg PO DAILY lisinopril-hydrochlorothiazide 10-12.5 mg tablet 1 tab PO DAILY metformin 500 mg tablet 500 mg PO .2 TIMES PER DAY VITAMIIN D 1,000 mg PO DAILY aspirin [Adult Aspirin Regimen] 81 mg tablet,delayed release (DR/EC) 81 mg PO DAILY levofloxacin 750 mg tablet 750 mg PO DAILY 7 Days Qty: 7 0RF tamsulosin [Flomax] 0.4 mg capsule 0.4 mg PO DAILY Qty: 14 0RF ondansetron 4 mg tablet,disintegrating 4 mg PO DAILY PRN (Reason: nausea and vomiting) 4 Days Qty: 10 0RF Additional Instructions: STOP FLOMAX STOP LEVOQIUN Given discharge information> Voiced understands offer W/C declines. Ambulates out with support person. Stand Alone Forms: Portal Instructions Referrals: Ruiz Yee DO [Primary Care Provider] - 1 week Discharge Date/Time: 01/25/23 16:39
[2023-01-25] MEDS: 0.9 % SODIUM CHLORIDE 1,000 ML 999 ML IV (14:22)
[2023-01-25 14:32] VITALS: PULSE 70
[2023-01-25 14:38] LABS: Basophils Absolute Auto 0.1 10^3/uL (0.0-0.1); Basophils Percent Auto 0.6 % (0.2-2.0); Eosinophils Absolute Auto 0.3 10^3/uL (0.0-0.7); Immature Granulocytes Abs Auto 0.14 10^3/uL (0.00-0.03); Immature Granulocytes Pct Auto 1.3 % (0.0-0.5); Lymphocytes Absolute Auto 2.2 10^3/uL (1.2-3.8); Lymphocytes Percent Auto 20.5 % (20.5-60.0); Mean Corpuscular HGB Conc 33.3 g/dL (29.9-35.2); Mean Corpuscular Hemoglobin 31.2 pg (26.7-34.0); Mean Corpuscular Volume 93.5 fL (81.0-99.0); Mean Platelet Volume 10.7 fL (9.5-13.5); Monocytes Absolute Auto 0.8 10^3/uL (0.3-0.8); Monocytes Percent Auto 7.7 % (1.7-12.0); Neutrophils Absolute Auto 7.1 10^3/uL (1.4-6.5); Neutrophils Percent Auto 66.9 % (43.0-75.0); Platelet Count 314 10^3/uL (150-450); Red Blood Count 4.17 10^6/uL (4.20-5.40); Red Cell Distribution Width 12.7 % (11.0-15.0); White Blood Count 10.6 10^3/uL (4.0-11.0)
[2023-01-25 14:53] LABS: Alanine Aminotransferase 23 U/L (14-59); Albumin Globulin Ratio 0.9; Albumin Level 3.8 g/dL (3.4-5.0); Alkaline Phosphatase 66 U/L (46-116); Anion Gap 14.3; Aspartate Amino Transferase 19 U/L (15-37); BUN Creatinine Ratio 24.1; Bilirubin Total 0.8 mg/dL (0.2-1.0); Calcium 9.6 mg/dL (8.5-10.1); Carbon Dioxide 26.4 mmol/L (21.0-32.0); Chloride 99 mmol/L (98-107); Estimated GFR (African America 57 (>=60); Estimated GFR (Non-African Ame 47 (>=60); Glucose 128 mg/dL (74-106); Potassium 3.7 mmol/L (3.5-5.1); Sodium 136 mmol/L (136-145); Total Protein 7.8 g/dL (6.4-8.2)
[2023-01-25 14:55] LABS: Troponin I High Sensitivity 4.8 pg/mL (4.0-51.3)
[2023-01-25 15:06] LABS: Lactate/Lactic Acid 2.7 mmol/L (0.4-2.0)
[2023-01-25 15:26] VITALS: PULSE 74
[2023-01-25 15:29] LABS: Bilirubin Urine NEGATIVE (NEGATIVE); Clarity Urine CLEAR (CLEAR); Color Urine YELLOW (YELLOW); Glucose Urine UA NEGATIVE (NEGATIVE); Ketones Urine NEGATIVE (NEGATIVE); Protein Urine TRACE mg/dL (NEG/TRACE)
[2023-01-25 15:30] LABS: Blood Urine LARGE (NEGATIVE); Leukocyte Esterase Urine TRACE (NEGATIVE); Nitrite Urine NEGATIVE (NEGATIVE); Urobilinogen Urine 0.2 EU/dL (0.2-1.0)
[2023-01-25] MEDS: ONDANSETRON PF 4 MG/2 ML VIAL IV (15:39)
[2023-01-25 16:08] LABS: Bacteria Urine TRACE #/HPF (NONE SEEN); Crystals Seen? None Seen #/HPF (None Seen); Mucus Urine NONE SEEN (NONE SEEN); Squamous Epithelial Cell Urine NONE SEEN #/LPF (NONE/RARE); WBC Urine 0-2 #/HPF (NONE SEEN)
[2023-01-25 16:09] LABS: Cast Seen? NONE SEEN #/LPF (NONE SEEN); Urine Culture Indicated NO
== END 2023-01-25 16:39 | disposition home or self-care (01) ==
PROVIDERS: Emergency Provider Emergency Medicine Emergency Medical Services; PCP Internal Medicine
DX: E86.9 Volume depletion, unspecified (principal); R11.2 Nausea with vomiting, unspecified; Z87.442 Personal history of urinary calculi; Z79.82 Long term (current) use of aspirin; Z79.84 Long term (current) use of oral hypoglycemic drugs; Z79.899 Other long term (current) drug therapy; Z98.890 Other specified postprocedural states
CPT/HCPCS: 36415; 80053; 81003; 81015; 83605; 84484; 85025; 93005; 96361; 96374; 99285

== ENCOUNTER 2023-03-24 07:44 | Outpatient (OUT) | payer MEDICARE, OTHER, SELFPAY ==
--- NOTE | 2023-03-24 07:56 | MM_ITS ---
Patient: PETER GLASS Exam Date: 03/24/2023 : 1945 Gender:F Ordering : DR Ruiz Yee D.O. Admission #: [id number] Family : Order #: [id number] CLICK HERE TO VIEW EXAM RADIOLOGY REPORT PROCEDURE: MM TOMOSYNTHESIS SCREENING BI COMPARISON: MG MAMM SCREEN 3D YAZMIN CAD, 03/20/2022. MG MAMM SCREEN YAZMIN W CAD, 01/06/2020. MG MAMM SCREEN YAZMIN W CAD, 12/04/2018. MG MAMM YAZMIN SCRN W CAD DIG, 11/23/2013. INDICATIONS: Screening mammogram Z12.31 Calculator Name NCI Breast Cancer Risk Assessment Tool 5 Year Breast Cancer Risk 4.50% Lifetime Breast Cancer Risk 7.50% Personal Breast Cancer No Personal Ovarian Cancer No Treatments None Family Cancers Mother with breast cancer at age 80. LOCATION: [facility] BREAST COMPOSITION: Scattered areas fibroglandular density. FINDINGS: DIAGNOSTIC CATEGORY 2--BENIGN FINDING: RIGHT BREAST: No significant suspicious finding. Stable chronic nodule and postsurgical scarring. No significant change has occurred. LEFT BREAST: No significant suspicious finding. Stable chronic nodules in biopsy marker clips. No significant change has occurred. RECOMMENDATIONS: ROUTINE MAMMOGRAM AND CLINICAL EVALUATION IN 12 MONTHS. PLEASE NOTE: A NORMAL MAMMOGRAM DOES NOT EXCLUDE THE POSSIBILITY OF BREAST CANCER. A CLINICALLY SUSPICIOUS PALPABLE LUMP SHOULD BE BIOPSIED. Dictated by: Jacinto Poon M.D. on 03/24/2023 at 14:16 Approved by: Jacinto Poon M.D. on 03/24/2023 at 14:21
[2023-03-24 08:11] LABS: Basophils Absolute Auto 0.1 10^3/uL (0.0-0.1); Basophils Percent Auto 0.8 % (0.2-2.0); Eosinophils Absolute Auto 0.9 10^3/uL (0.0-0.7); Eosinophils Percent Auto 11.2 % (0.9-7.0); Hematocrit 37.6 % (36.0-48.0); Immature Granulocytes Abs Auto 0.04 10^3/uL (0.00-0.03); Immature Granulocytes Pct Auto 0.5 % (0.0-0.5); Mean Corpuscular HGB Conc 31.9 g/dL (29.9-35.2); Mean Corpuscular Hemoglobin 30.1 pg (26.7-34.0); Mean Corpuscular Volume 94.2 fL (81.0-99.0); Mean Platelet Volume 10.4 fL (9.5-13.5); Monocytes Absolute Auto 0.6 10^3/uL (0.3-0.8); Monocytes Percent Auto 8.1 % (1.7-12.0); Neutrophils Absolute Auto 3.1 10^3/uL (1.4-6.5); Neutrophils Percent Auto 40.4 % (43.0-75.0); Platelet Count 255 10^3/uL (150-450); Red Blood Count 3.99 10^6/uL (4.20-5.40); Red Cell Distribution Width 12.7 % (11.0-15.0); White Blood Count 7.8 10^3/uL (4.0-11.0)
[2023-03-24 08:22] LABS: Estimated Average Glucose 157 mg/dL; Glycohemoglobin A1C 7.1 % (4.5-6.2)
[2023-03-24 09:11] LABS: Alanine Aminotransferase 27 U/L (14-59); Anion Gap 10.1; BUN Creatinine Ratio 22.1; Calcium 9.4 mg/dL (8.5-10.1); Carbon Dioxide 31.5 mmol/L (21.0-32.0); Chloride 105 mmol/L (98-107); Chol HDL Ratio 1.9; Cholesterol 119 mg/dL (<=200); Estimated GFR (African America >60 (>=60); Estimated GFR (Non-African Ame 57 (>=60); Glucose 138 mg/dL (74-106); HDL Cholesterol 62 mg/dL (40-60); Potassium 3.6 mmol/L (3.5-5.1); Sodium 143 mmol/L (136-145); Thyroid Stimulating Hormone 0.224 uIU/mL (0.358-3.740); Triglycerides 78 mg/dL (<=150); VLDL CHOLESTEROL 15.6 mg/dL
== END 2023-03-24 07:45 | disposition home or self-care (01) ==
LOC: LAB 07:44
PROVIDERS: PCP Internal Medicine; Visit Provider Internal Medicine
DX: Z12.31 Encounter for screening mammogram for malignant neoplasm of breast (principal); Z79.899 Other long term (current) drug therapy; E11.65 Type 2 diabetes mellitus with hyperglycemia; E06.3 Autoimmune thyroiditis; E78.01 Familial hypercholesterolemia; I25.10 Atherosclerotic heart disease of native coronary artery without angina pectoris; Z80.3 Family history of malignant neoplasm of breast
CPT/HCPCS: 36415; 77063; 77067; 80048; 80061; 82043; 83036; 84443; 84460; 85025

== ENCOUNTER 2023-08-20 12:15 | Outpatient (OUT) | payer MEDICARE, OTHER, SELFPAY ==
--- NOTE | 2023-08-20 | XR_ITS ---
The [address] [address] Patient Name: PETER GLASS MRN: [id number] date: 1945 Sex: F Assigned Patient Location: [facility] Current Patient Location: [facility] Accession/Order Number: [id number] Exam Date: 08/20/2023 12:46 Report Date: 08/20/2023 14:15 At the request of: NICOLE MCHUGH Procedure: XR abdomen 1V EXAMINATION: XR abdomen 1V HISTORY: Kidney stone N20.0 COMPARISON: No relevant comparison available. FINDINGS: KIDNEY/URETER - RIGHT: No visible renal or ureteral calcifications. KIDNEY/URETER - LEFT: No visible renal or ureteral calcifications. PELVIS: No visible ureteral calcifications. Pelvic calcifications favor phleboliths. BOWEL: No abnormal dilation or deviation. BONES: No acute abnormality. OTHER: Negative. No abnormal gaseous collections. XR/XR abdomen 1V IMPRESSION: 1. No visible urinary tract calculi. 2. Evaluation is limited by large amount of overlying bowel content. Electronically authenticated by: RITA HUERTA Date: 08/20/2023 14:15
== END 2023-08-20 12:16 | disposition home or self-care (01) ==
LOC: RAD 12:17
PROVIDERS: PCP Internal Medicine; Visit Provider Urology
DX: N20.0 Calculus of kidney (principal)
CPT/HCPCS: 74018

== ENCOUNTER 2023-10-13 11:42 | Outpatient (OUT) | payer MEDICARE, OTHER, SELFPAY ==
--- OUTSIDE RECORDS SUMMARY | 2023-10-13 11:47 | XMS_ITS | CCD ---
Author Name Unknown Address [address] [place] [address] Organization [facility] Care Team Providers Care Handle Rounder Operator Name Role Phone SELF, REFERRED Unavailable Unavailable ZACHARIAH, RUIZ Unavailable Unavailable JACKI LIRA Unavailable Unavailable MARIKRUNAL Rm Unavailable Unavailable NE Unavailable Unavailable MICKI BRO Unavailable Unavailable NE Unavailable Unavailable JACKI LIRA Unavailable Unavailable PHYSICIAN, DEFAULT Unavailable Unavailable PHYSICIAN, DEFAULT Unavailable Unavailable ZACHARIAH, RUIZ Unavailable Unavailable Ruiz Yee Unavailable LIGIA ., DR DUGAN Admitting Unavailable HOY ., DR DUGAN Attending Unavailable BALL, DR ARIAS Primary Care Unavailable LOWERY, DR LINDA Li Consulting Unavailable HOY ., DR DUGAN Consulting Unavailable PAY ., DR KLEIN Consulting Unavailable WALTON, CELIA Consulting Unavailable ZACHARIAH, DR ARIAS Admitting Unavailable BALL, DR ARIAS Attending Unavailable BALL, DR ARIAS Consulting Unavailable BALL, DR ARIAS Primary Care Unavailable BALL, DR ARIAS Primary Care Unavailable BALL, DR ARIAS Admitting Unavailable BALL, DR ARIAS Attending Unavailable BALL, DR ARIAS Consulting Unavailable ZACHARIAH, DR ARIAS Primary Care Unavailable BALL, DR ARIAS Admitting Unavailable BALL, DR ARIAS Attending Unavailable BALL, DR ARIAS Consulting Unavailable WEST, DR RICHARD Ojeda Consulting Unavailable BROWN, RICHARD Consulting Unavailable BALL, DR ARIAS Admitting Unavailable BALL, DR ARIAS Attending Unavailable BALL, DR ARIAS Consulting Unavailable BALL, DR ARIAS Primary Care Unavailable BALL, DR ARIAS Attending Unavailable BALL, DR ARIAS Primary Care Unavailable BALL, DR ARIAS Admitting Unavailable HAY ., DR OLMSTEAD Attending Unavailable HAY ., DR OLMSTEAD Consulting Unavailable BALL, DR ARIAS Primary Care Unavailable HAY ., DR OLMSTEAD Admitting Unavailable MASONJAZZ Cristobal Consulting Unavailable ZACHARIAH, RUIZ Primary Care Physician Andry MCHUGH Attending Unavailable Andry MCHUGH Attending Unavailable Andry MCHUGH Referring Unavailable Andry MCHUGH Admitting Unavailable Kailee Cox Referring Unavailable Andry MCHUGH Attending Unavailable CHEIKH LOWERY Attending Unavailable CHEIKH LOWERY Attending Unavailable Allergies Allergy Classification Reported Allergen(s) Allergy Type Date of Onset Reaction(s) Facility (3 sources) amoxicillin; Translations: [amoxicillin] Drug Allergy 12-07-19 14 [facility] Repository (3 sources) amoxicillin / clavulanate; Translations: [Augmentin] Drug Allergy 02-21-20 13 [facility] Repository (3 sources) codeine; Translations: [codeine] Drug Allergy 02-21-20 13 [facility] Repository (2 sources) desonide Drug Allergy 12-07-19 14 [facility] Repository (2 sources) fexofenadine Drug Allergy 09-15-19 18 [facility] Repository (16 sources) loratadine; Translations: [Claritin] Drug Allergy 02-21-20 13 Unknown [facility] Repository (3 sources) naproxen; Translations: [Naprosyn] Drug Allergy 12-07-19 14 [facility] Repository (2 sources) NSAIDs Drug allergy (disorder) 02-14-20 13 [facility] Repository (3 sources) omeprazole; Translations: [PriLOSEC] Drug Allergy 02-21-20 13 [facility] Repository (2 sources) oxyCODONE Drug Allergy 02-21-20 13 [facility] Repository (20 sources) fexofenadine; Translations: [Beckie] Drug Allergy 12-07-19 14 Unknown (qualifier value) [facility] Repository (7 sources) Loratadine; Translations: [loratadine] Drug Allergy Unknown (qualifier value) [facility] (18 sources) oxyCODONE Drug Allergy Unknown [facility] Other (10 sources) Substance with penicillin structure and antibacterial mechanism of action (substance) Drug allergy Unknown [facility] Other (18 sources) PCN-200 Propensity to adverse reactions Unknown [facility] Other (2 sources) Bacitracin / Neomycin / Polymyxin B; Translations: [Neosporin] Drug Allergy 02-21-20 13 [facility] Repository (3 sources) Adhesive Tape; Translations: [Tape] Allergy to substance unknown [facility] (2 sources) Amoxicillin; Translations: [amoxicillin] Drug Allergy Unknown (qualifier value) [facility] (2 sources) Amoxicillin / Clavulanate; Translations: [amoxicillin-clav ulanate] Drug Allergy Unknown (qualifier value) [facility] (2 sources) bacitracin / neomycin / polymyxin b; Translations: [bacitracin/neomy abisai/polymyxin B topical] Drug Allergy Redness [facility] (2 sources) Codeine; Translations: [codeine] Drug Allergy Unknown (qualifier value) [facility] (3 sources) Ibuprofen; Translations: [ibuprofen] Drug Allergy Unknown (qualifier value) [facility] (4 sources) Naproxen; Translations: [naproxen] Drug Allergy Unknown (qualifier value) [facility] (2 sources) Non-steroidal anti-inflammatory agent; Translations: [NSAIDs] Drug allergy Swelling [facility] Comment on above: swelling of lips (2 sources) Omeprazole; Translations: [omeprazole] Drug Allergy Unknown (qualifier value) [facility] (10 sources) Acetaminophen / oxyCODONE Drug Allergy oxyCODONE-Acet aminophen [facility] Other (10 sources) Non-steroidal anti-inflammatory agent Drug allergy Unknown [facility] Other (10 sources) Penicillin Drug Allergy Unknown [facility] Other (2 sources) Beckie Allergy Drug allergy Unknown [facility] Other (2 sources) patient allergy list reviewed by nurse or physicia Propensity to adverse reactions 04-02-20 Comment:Done [facility] Other (10 sources) Claritin-D 12 Hour Drug allergy Unknown [facility] Other (1 source) Naproxen; Translations: [Aleve] Drug Allergy [facility] Repository (1 source) NSAIDs; Translations: [NSAIDs] Propensity to adverse reactions (disorder) [facility] Repository Medications Current Medications Medication Drug Class(es) Dates Sig (Normalized) Sig (Original) Aspirin (2 sources) Platelet Aggregation Inhibitor, Nonsteroidal Anti-inflammatory Drug Start: 02-10-2023 aspirin 81 mg, Refills(s) 0 Start Date: 02/10/23 Status: Ordered atorvastatin 40 mg oral tablet (20 sources) HMG-CoA Reductase Inhibitor Start: 02-10-2023 atorvastatin 40 mg Tab Refills(s) 0 Start Date: 02/10/23 Status: Ordered Contour Next Test - (18 sources) Contour Next Bebe t - USE 1 STRIP TO CHECK GLUCOSE ONCE DAILY for 90 days DX E11.65 Active Contour Next Bebe t - USE 1 STRIP TO CHECK GLUCOSE ONCE DAILY for 90 Active Contour Next Bebe t - as directed In Vitro Active Hydrochlorothiazide / Lisinopril (20 sources) Thiazide Diuretic, Angiotensin Converting Enzyme Inhibitor Start: 02-10-2023 hydrochlorothiazide-lisinopr il Refill(s) 0 Start Date: 02/10/23 Status: Ordered take 1 tablet by hubert th every twenty-four hours Lisinopril-hydroCHLOROthiazide 10-12.5 M G 1 tablet Orally Once a day for 90 days Active levothyroxine sodium 0.075 mg oral tablet (20 sources) l-Thyroxine Start: 02-10-2023 levothyroxine 75 mcg (0.075 mg) Tab Refills(s) 0 Start Date: 02/10/23 Status: Ordered take 1 tablet by hubert th once daily in the morning Levothyroxine Sodium 75 MCG 1 tablet in the morning on an empty stomach Orally Once a day for 90 days Active metFORMIN (20 sources) Biguanide Start: 02-10-2023 metformin 500 mg, Refills(s) 0 Start Date: 02/10/23 Status: Ordered take 1 tablet by mouth twice nica ly metFORMIN HCl 500 MG 1 tablet with a meal Orally Twice daily for 90 days Active take 1 tablet by hubert th every twenty-four hours metFORMIN HCl 500 MG 1 tablet with a mery l Orally Once a day for 90 days Active 24 hr metoprolol succinate 25 mg extended release oral tablet (20 sources) beta-Adrenergic Renard Start: 02-10-2023 metoprolol 25 mg ER Tab Refills(s) 0 Start Date: 02/10/23 Status: Ordered metroNIDAZOLE 500 mg oral tablet (9 sources) Nitroimidazole Antimicrobial Start: 02-24-2023 take 1 tablet by mouth every eight hours metroNIDAZOLE 500 MG 1 tablet Orally Three times a day Feb, Active paxlovid (300/100) 20 x 150 mg & 10 x 100mg tablet therapy pack (2 sources) Start: 06-24-2023 Paxlovid (300/100) 20 x 150 MG & 10 x 100MG as directed Orally bid for 5 days Jun, Active Vitamin D (2 sources) Start: 02-10-2023 Vitamin D Refills(s) 0 Start Date: 02/10/23 Status: Ordered {20 (nirmatrelvir 150 MG Oral Tablet) / 10 (ritonavir 100 MG Oral Tablet) } Pack [Paxlovid 5-Day] (2 sources) Start: 06-24-2023 Paxlovid (300/100) 20 x 150 MG & 10 x 100MG as directed Orally bid for 5 days Jun, Active Completed/Discontinued Medications Medication Drug Class(es) Dates Sig (Normalized) Sig (Original) azithromycin 250 mg oral tablet (18 sources) Macrolide Antimicrobial Start: 10-15-2022 Azithromycin 250 MG as directed Orally daily for 5 days Oct, Not-Taking/PRN ciprofloxacin 500 mg oral tablet (14 sources) Quinolone Antimicrobial Start: 02-24-2023 take 1 tablet by mouth every twelve hours Ciprofloxacin HCl 500 MG 1 tablet Orally every 12 hrs Feb, Not-Taking/PRN Start: 01-22-2023 Cipro 500 mg T ab See Instructions, Take 1 tab day prior to procedure and 1 tab day of procdure - afterwards, # 2 tab(s), Refills(s) 0, Pharmacy: [facility] 1987 Start Date: 01/22/23 Status: Ordered Suprep Bowel Prep . (18 sources) Start: 04-22-2014 Suprep Bowel P rep . as directed Orally as directed for 1 dose(s) Apr, Not-Taking/PRN Start: 04-22-2014 Suprep Bowel P rep . as directed Orally as directed for 1 dose(s) Apr, Not-Taking Problems Active Problems Problem Classification Problem Date Documented Da te Episodic/Chronic Abdominal pain (20 sources) Abdominal pain; Translations: [Abdominal pain] Onset: 03-22-2014 Episodic Acute myocardial infarction (7 sources) Non-ST elevation (NSTEMI) myocardial infarction; Translations: [Acute non-ST segment elevation myocardial infarction] Onset: 09-11-2017 Chronic Anxiety disorders (20 sources) Generalized anxiety disorder; Translations: [Generalized anxiety disorder] Chronic Calculus of urinary tract (20 sources) Personal history of urinary calculi; Translations: [Kidney stone] Onset: 12-28-2021 Episodic Congestive heart failure; nonhypertensive (1 source) Unspecified systolic (congestive) heart failure; Translations: [UNSPECIFIED SYSTOLIC (CONGESTIVE) HEART FAILURE] Onset: 09-15-2017 Chronic Coronary atherosclerosis and other heart disease (20 sources) Coronary arteriosclerosis; Translations: [Atherosclerotic heart disease of [place] coronary artery without angina pectoris] Onset: 09-25-2017 Chronic Diabetes mellitus with complications (20 sources) Hyperglycemia due to type 2 diabetes mellitus; Translations: [Type 2 diabetes mellitus with hyperglycemia] Onset: 11-23-2013 Chronic Diabetes mellitus without complication (6 sources) Type 2 diabetes mellitus without complications; Translations: [Type 2 diabetes mellitus without complication] Onset: 11-23-2013 08-26-2023 Chronic Diabetes mellitus without complication (2 sources) Hyperglycemia, unspecified; Translations: [Impaired fasting glucose] Onset: 09-15-2017 Episodic Diseases of mouth; excluding dental (20 sources) Plicated tongue; Translations: [Plicated tongue] Episodic Disorders of lipid metabolism (20 sources) Hyperlipidemia, unspecified; Translations: [Pure hypercholesterolemia ] Onset: [birth year]11-1959 Chronic Diverticulosis and diverticulitis (12 sources) Diverticular disease; Translations: [Diverticulosis] Onset: 03-22-2014 Chronic Epilepsy; convulsions (1 source) Seizure 09-02-2023 Episodic Esophageal disorders (4 sources) Gastro-esophageal reflux disease with esophagitis; Translations: [Gastroesophageal reflux disease with esophagitis without hemorrhage] Chronic Essential hypertension (20 sources) Essential (primary) hypertension; Translations: [Essential hypertension] Onset: 05-16-2014 Chronic Fluid and electrolyte disorders (16 sources) Dehydration; Translations: [Hypo-osmolality and hyponatremia] Onset: 01-10-2022 Episodic Genitourinary symptoms and ill-defined conditions (4 sources) Dysuria; Translations: [Dysuria] Episodic Hypertension with complications and secondary hypertension (1 source) Hypertensive heart disease with heart failure; Translations: [HYPERTENSIVE HEART DISEASE WITH HEART FAILURE] Onset: 09-15-2017 Chronic Immunizations and screening for infectious disease (4 sources) Vaccination given; Translations: [Encounter for immunization] Episodic Intestinal infection (20 sources) Clostridial enteric disease; Translations: [Enterocolitis due to Clostridium difficile, not specified as recurrent] Onset: 01-10-2022 Episodic Menopausal disorders (8 sources) Primary ovarian failure; Translations: [Other 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 Nutritional deficiencies (4 sources) Vitamin D deficiency; Translations: [Vitamin D deficiency, unspecified] Onset: 11-22-2014 Chronic Osteoarthritis (20 sources) Arthritis of joint of left shoulder region; Translations: [Primary osteoarthritis, left shoulder] Onset: 12-25-2017 Chronic Other aftercare (2 sources) Other skilled nursing (current) drug therapy; Translations: [OTH PROJECTION ENGINEER CURRENT DRUG THERAPY] Onset: 03-22-2022 Episodic Other aftercare (4 sources) Long-term current use of drug therapy; Translations: [Other intermediate frame tender (current) drug therapy] Episodic Other and ill-defined heart disease (1 source) Takotsubo syndrome; Translations: [TAKOTSUBO SYNDROME] Onset: 09-15-2017 Chronic Other and ill-defined heart disease (4 sources) Takotsubo cardiomyopathy; 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] Chronic Other and unspecified benign neoplasm (10 sources) History of polyp of colon; Translations: [History of colon polyps] Episodic Other and unspecified benign neoplasm (4 sources) Polyp of colon; Translations: [Polyp of colon] Episodic Other circulatory disease (18 sources) Abdominal bruit; Translations: [Other specified symptoms and signs involving the circulatory and respiratory systems] Episodic Other circulatory disease (4 sources) Cardiovascular symptoms; Translations: [Other specified symptoms and signs involving the circulatory and respiratory systems] Episodic Other injuries and conditions due to external causes (4 sources) History of fall; Translations: [History of falling] Episodic Other non-traumatic joint disorders (2 sources) Lower limb joint arthritis; Translations: [Osteoarthrosis, unspecified whether generalized or localized, lower leg] Onset: 04-26-2016 Chronic Other screening for suspected conditions (not mental disorders or infectious disease) (14 sources) Encounter for screening mammogram for malignant neoplasm of breast; Translations: [Other specified abnormal findings of blood chemistry] Onset: 11-23-2013 Episodic Other upper respiratory infections (20 sources) Acute abscess of maxillary sinus; Translations: [Acute maxillary sinusitis, unspecified] Onset: 11-01-2015 Episodic Residual codes; unclassified (18 sources) Family history of malignant neoplasm of thyroid; Translations: [Family history of malignant neoplasm of other organs or systems] Episodic Residual codes; unclassified (19 sources) Asymptomatic menopausal state; Translations: [Menopause] Onset: 03-22-2022 Episodic Residual codes; unclassified (2 sources) Requires influenza virus vaccination; Translations: [Need for prophylactic vaccination and inoculation, Influenza] Episodic Residual codes; unclassified (4 sources) Family history of cancer; Translations: [Family history of malignant neoplasm of other organs or systems] Episodic Residual codes; unclassified (4 sources) Postmenopausal state; Translations: [Asymptomatic menopausal state] Episodic Residual codes; unclassified (4 sources) Procedure not done; Translations: [Procedure and treatment not carried out because of patient's decision for unspecified reasons] Episodic Skin and subcutaneous tissue infections (1 source) Cutaneous abscess of perineum Episodic Systemic lupus erythematosus and connective tissue disorders (2 sources) Autoimmune disease; Translations: [Autoimmune disease, not elsewhere classified] Onset: 08-11-1959 Chronic Thyroid disorders (20 sources) Hypothyroidism, unspecified; 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] Onset: 09-15-2017 Chronic Unclassified (2 sources) Unknown / UNK(Unknown) Onset: 09-15-2017 Unclassified (3 sources) CONTACT W/AND (SUSP) EXPOS COVID-19; Translations: [CONTACT W/AND (SUSP) EXPOS COVID-19] Onset: 02-28-2022 Unclassified (2 sources) COUGH, UNSPECIFIED; Translations: [COUGH, UNSPECIFIED] Onset: 12-28-2021 Unclassified (2 sources) Long-term current use of drug therapy; Translations: [Long-term (current) use of other medications] Onset: 12-02-2017 Unclassified (4 sources) Acute candidiasis of vulva and vagina; Translations: [Acute candidiasis of vulva and vagina] Unclassified (4 sources) Exposure to acute respiratory syndrome coronavirus 2; Translations: [Contact with and (suspected) exposure to COVID-19] Unclassified (1 source) Obstructive hydronephrosis 09-02-2023 Urinary tract infections (18 sources) Acute cystitis; Translations: [Acute cystitis without hematuria] Episodic Past or Other Problems Problem Classification Problem Date Documented Da te Episodic/Chronic Acute bronchitis (5 sources) Acute bronchitis due to other specified organisms; Translations: [Acute bronchitis] Onset: 08-15-2014 Episodic Allergic reactions (9 sources) Allergy status to narcotic agent status; Translations: [Allergy status to other drugs, medicaments and biological substances status] Onset: 04-25-2015 Episodic Bacterial infection; unspecified site (2 sources) Bacterial infectious disease; Translations: [Bacterial infection, unspecified, in conditions classified elsewhere and of unspecified site] Onset: 08-15-2017 Episodic Deficiency and other anemia (4 sources) Anemia; Translations: [Anemia, unspecified] Onset: 01-07-2022 Episodic Esophageal disorders (20 sources) Esophageal disorders; Translations: [Gastroesophageal reflux disease with esophagitis without hemorrhage] Malaise and fatigue (3 sources) Weakness; Translations: [Malaise and fatigue] Onset: 11-22-2014 Episodic Other aftercare (1 source) ferry terminal agent (current) use of aspirin; Translations: [CUSTODIAL CURRENT USE OF ASPIRIN] Onset: 01-10-2022 Episodic Other aftercare (1 source) skilled nursing (current) use of oral hypoglycemic drugs; Translations: [PROJECTION ENGINEER USE ORAL HYPOGLYCEMIC DX] Onset: 01-10-2022 Episodic Other bone disease and musculoskeletal deformities (1 source) Other specified disorders of bone density and structure, other site; Translations: [OTH D/O BONE DEN STRUCT OTH SITE] Onset: 03-22-2022 Episodic Other connective tissue disease (2 sources) Muscle, ligament and fascia disorders; Translations: [Other disorder of muscle, ligament, and fascia] Onset: 07-07-2018 Episodic Other gastrointestinal disorders (3 sources) Diarrhea, unspecified; Translations: [DIARRHEA UNSPECIFIED] Onset: 01-05-2022 Episodic Other gastrointestinal disorders (4 sources) Constipation; Translations: [Constipation, unspecified] Onset: 10-18-2016 Episodic Other liver diseases (1 source) Abnormal levels of other serum enzymes; Translations: [ABNORMAL LEVELS OTHER SERUM ENZYMES] Onset: 01-10-2022 Episodic Other lower respiratory disease (1 source) Shortness of breath; Translations: [SHORTNESS OF BREATH] Onset: 12-28-2021 Episodic Other non-traumatic joint disorders (2 sources) Arthralgia of the lower leg; Translations: [Pain in joint, lower leg] Onset: 10-04-2015 Episodic Other non-traumatic joint disorders (4 sources) Pain in right hip joint; Translations: [Pain in right hip] Onset: 05-26-2018 Episodic Other nutritional; endocrine; and metabolic disorders (2 sources) Body mass index 25-29 - overweight; Translations: [Body mass index 26.0-26.9, adult] Onset: 08-15-2017 Episodic Other nutritional; endocrine; and metabolic disorders (4 sources) Overweight; Translations: [Overweight] Onset: 06-11-2022 Resolved: 06-11-2022 Episodic Other skin disorders (2 sources) Atrophoderma; Translations: [Unspecified hypertrophic and atrophic condition of skin] Onset: 04-26-2016 Episodic Other skin disorders (4 sources) Asteatosis cutis; Translations: [Xerosis cutis] Onset: 10-27-2015 Episodic Other skin disorders (4 sources) Other seborrheic keratosis; Translations: [Seborrheic keratosis] Onset: 04-26-2016 Episodic Other upper respiratory disease (4 sources) Bleeding from nose; Translations: [Epistaxis] Onset: 08-15-2014 Episodic Pneumonia (except that caused by tuberculosis or sexually transmitted disease) (1 source) Pneumonia, unspecified organism; Translations: [PNEUMONIA UNSPECIFIED ORGANISM] Onset: 01-10-2022 Episodic Residual codes; unclassified (1 source) Family history of malignant neoplasm of breast; Translations: [FAMILY HX MALIG NEOPLASM OF BREAST] Onset: 03-22-2022 Episodic Residual codes; unclassified (1 source) Acquired absence of other specified parts of digestive tract; Translations: [ACQ ABSENCE OTH PART DIGESTV TRACT] Onset: 12-28-2021 Episodic Residual codes; unclassified (1 source) Acquired absence of both cervix and uterus; Translations: [ACQUIRED ABSENCE BOTH CERVIX AND UTERUS] Onset: 12-28-2021 Episodic Sprains and strains (8 sources) Strain of muscle of right hip; Translations: [Strain of muscle, fascia and tendon of right hip, initial encounter] Onset: 05-05-2017 Episodic Unclassified (1 source) CONTACT W/AND (SUSP) EXPOS COVID-19; Translations: [CONTACT W/AND (SUSP) EXPOS COVID-19] Onset: 02-27-2022 Unclassified (1 source) COUGH, UNSPECIFIED; Translations: [COUGH, UNSPECIFIED] Onset: 12-26-2021 Viral infection (20 sources) Disease caused by 2019-nCoV; Translations: [COVID-19] Onset: 12-28-2021 Results Test Name Value Interpretation Reference Range Facility Consultation Noteon 02-13-20 Consultation Note [id number]:127 [facility] Operative Reporton Operative Report [id number]:127 [facility] Consent for Procedure/Surger yon 02-10-2023 Consent for Procedure/Surger y [id number]:127 [facility] Consent for Treatmenton Consent for Treatment [id number]:127 [facility] Inpatient Patient Summaryon 02-10-2023 Inpatient Patient Summary [place] [address] Clinical Summary Person Information Name: ARIADNA COPELAND Age: 77 Years : 1945 Sex: Female PCP: RUIZ YEE DO Marital Status: Race: White Ethnicity: Non- or Language: [place] Visit Id: Visit Reason: KIDNEY STONE Speciality: Acuity: Enc Type: Outpatient Med Service: Surgery Arrival: 02/10/2023 13:32:23 Discharge: Dispo Type: Address: [address] [place] [id number] Provider Notes: Diagnosis: Problems No Problems Documented Smoking Status: Functional Status: Sensory Deficits: History of Falls: Mobility Assistance Prior to Admission: ADLs: Current Level of Assistance for Self-Care/Mobility: Cognitive Status: Allergies codeine (Unknown) NSAIDs (Swelling) Beckie (Unknown) amoxicillin (Unknown) Augmentin (Unknown) PriLOSEC (Unknown) Neosporin (Redness) Claritin (Unknown) Laboratory or Other Results This Visit (last charted value for your 02/10/2023 visit) No Laboratory or Other Results This Visit Measurements: Height: Weight: Blood Pressure: Not Valued / Not Valued BMI: Procedures No Procedures Documented Immunizations No Immunizations Documented This Visit Final Med List: ciprofloxacin (Cipro 500 mg Tab) Take 1 tab day prior to procedure and 1 tab day of procdure - afterwards. Refills: 0. Care Team Members: Attending Physician: Andry MCHUGH MD Consulting Physician: Referring Physician: Andry MCHUGH MD Follow up: With: Address: When: Andry MCHUGH [facility], [address], [place] [address] Business (1) Within 6 months Comments: Call for followup appointment in about six months with an abdominal X-ray prior to your visit (my office needs to send an order for this study) I will get records from the [facility] to see what the CAT scan demonstrated in terms of whether or not you have more stones in your kidneys. This may change the follow-up date depending on findings. Have a great day! Patient Education Information: EU - Cystoscopy with Stent Removal Discharge Instructions (Custom) [facility] IntraOperative Documentson 0 02-10-2023 IntraOperative Documents [id number]:127 [facility] Main OR Intraoperative Recor don 02-10-2023 Main OR Intraoperative Record IntraOp Document Type FTURO Summary Primary Physician: Andry MCHUGH MD Finalized Date/Time: 02/10/23 14:40:33 Pt. Name: ARIADNA COPELAND/Sex: 1945 Female Med Rec #: [id number] Physician: Andry MCHUGH MD Financial #: [id number] Pt. Type: O Room/Bed: / Admit/Disch: 02/10/23 13:32:23 - Institution: Case Times FTURO Entry 1 Patient Times In Room 02/10/23 14:33:00 Out Room 02/10/23 14:49:00 Procedure Times Start 02/10/23 14:35:00 Stop 02/10/23 14:44:00 Anesthesia Times Last Modified By: Reagan FAYE, CRISTIANEOR, Amena 02/10/23 14:39:24 Case Attendance FTURO Entry 1 Entry 2 Entry 3 Case Attendee JEISON HEARN, Andry Kirk RN, CNOR, Christal MARTINI, Gabrielle Beckwith Role Performed Surgeon - Primary Canteen Operator - Primary Scrub - Primary Time In 02/10/23 14:33:00 02/10/23 14:33:00 02/10/23 14:33:00 Time Out 02/10/23 14:49:00 02/10/23 14:49:00 02/10/23 14:49:00 Procedure CYSTOSCOPY LOCAL WITH CYSTOSCOPY LOCAL WITH CYSTOSCOPY LOCAL WITH STENT REMOVAL(Left) STENT REMOVAL(Left) STENT REMOVAL(Left) Comments Last Modified By: Reagan FAYE, CRISTIANEOR, Reagan FAYE, CRISTIANEOR, Reagan FAYE, CRISTIANEOR, Amena 02/10/23 Amena 02/10/23 Amena 02/10/23 14:39:25 14:39:25 14:39:25 Surgical Procedures FTURO Entry 1 Procedure Description Procedure CYSTOSCOPY LOCAL WITH Modifiers Left STENT REMOVAL Surgeon Description CYSTO WITH LEFT STENT REMOVAL Primary Procedure Yes Primary Surgeon Andry MCHUGH MD Start 02/10/23 14:35:00 Stop 02/10/23 14:44:00 Anesthesia Type Local Surgical Service Urology Wound Class 2 - Clean-Contaminated Last Modified By: Reagan FAYE, CRISTIANEOR, Amena 02/10/23 14:39:43 General Case Data FTURO Pre-Care Text: Classifies surgical wound, implements aseptic technique, initiates traffic control Entry 1 Case Information OR URO 1 FT Case Level None Wound Class 2 - Clean-Contaminated Specialty Urology Preop Diagnosis KIDNEY STONE with stent Postop Same As Preop Yes placement Postop Diagnosis KIDNEY STONE with stent Outcomes Met? Yes placement Last Modified By: Reagan FAYE, CRISTIANEOR, Amena 02/10/23 14:40:03 Post-Care Text: The patient is free from signs and symptoms of infection EU IntraOp - FTURO Pre-Care Text: Implements protective measures prior to operative or invasive procedure, confirms identity before the operative or invasive procedure, verifies operative procedure, surgical site, and laterality Entry 1 EU Perioperative Protocols Procedure(s) CYSTOSCOPY LOCAL WITH Patient Identity Birthday, ID Band STENT REMOVAL(Left) Verified (select at Check, Patient least 2): Participation Consents / H and P HandP, Surgery/Procedure Operative Site N/A Verified Consent Marking Verified Surgical Site Yes Laterality Verified n/a Verified Procedure Verified Yes Correct Patient Yes Position Verified Availability Equipment, Medication Time Out Andry MCHUGH MD, Verified (If Participants Reagan FAYE, CRISTIANEOR, Applicable) Christal Beckwith ELECTROLYSIS ENGINEER, Gabrielle Roth Time Out Complete 02/10/23 14:33:00 Allergies Reviewed? Yes Allergies Reviewed Self/Patient With Body Position Low Lithotomy Prep Area perineal area Prep Agents Betadine Solution Skin. Condition Unable to Visualize Additional None Specimens Collected Vitals - EU Blood Pressure Pulse Respirations SPO2 EBL 0 IandO - EU Total Intake 0 mL Total Output 0 mL Outcomes Met? Yes Last Modified By: DIEGO Kirk RN, Ruthann 02/10/23 14:38:20 Post-Care Text: The patient is free from signs and symptoms of injury caused by extraneous objects Sign Out FTURO Entry 1 Before Patient Leaves OR Nurse verbally Yes Nurse verbally n/a confirms with the confirms with the team the name of team that the procedure(s) instrument, sponge, recorded and needle counts are correct (or N/A) Nurse verbally n/a Nurse verbally n/a confirms with the confirms with the team how the team whether there specimen is labeled are any equipment (including patient problems to be name), if applicable addressed Sign Out Complete 02/10/23 14:44:00 Last Modified By: DIEGO Kirk RN, Ruthann 02/10/23 14:40:16 Case Comments Finalized By: DIEGO Kirk RN, Ruthann Document Signatures Signed By: DIEGO Kirk RN, Ruthann 02/10/23 14:40 DIEGO Kirk RN, Ruthann 02/10/23 14:40 [facility] Main OR Preoperative Recordo n 02-10-2023 Main OR Preoperative Record Holding Area Document Type FTURO Summary Primary Physician: Andry MCHUGH MD Finalized Date/Time: 02/10/23 14:39:06 Pt. Name: ARIADNA COPELAND /Sex: 1945 Female Med Rec #: [id number] Physician: Andry MCHUGH MD Financial #: [id number] Pt. Type: O Room/Bed: / Admit/Disch: 02/10/23 13:32:23 - Institution: Case Times Holding FTURO Pre-Care Text: Verifies consent for planned procedure, identifies individual values and wishes concerning care, includes family members in perioperative teaching Secures patient's records' belongings, and valuables, maintains patient's dignity and privacy, and maintains patient confidentiality Entry 1 In Holding 02/10/23 14:13:00 Outcomes Met? Yes Last Modified By: Valorie Ross LPN 02/10/23 14:13:38 Post-Care Text: The patient participates in decisions affecting his or her perioperative plan of care The patient's right to privacy is maintained Surgery Checklist FTURO Entry 1 Patient Birthday, ID Band Procedure Surgical Consent, With Identification: Check, Patient Verification: Patient Participation NPO after Midnight: No Date/Time: 02/10/23 14:19:00 Personal Items: Cataract Lens Implant, Personal Items bilat lens implants, Glasses, Jewelry Comment: glasses, ring x 1, watch, necklace Complaints of Pain: No Skin Integrity Intact, [place], Warm, & Dry Vitals - EU Blood Pressure 159/68 Pulse 64 bpm Respirations 20 br/min SPO2 98 % RN Reviewed Yes Last Modified By: DIEGO Kirk RN, Ruthann 02/10/23 14:39:04 General Comments: Temp 98.2 Finalized By: DIEGO Kirk RN, Ruthann Document Signatures Signed By: Valorie Ross LPN 02/10/23 14:22 DIEGO Kirk RN, Ruthann 02/10/23 14:39 Normal [facility] Operative Reporton 3 Operative Report Patient: ERIC COPELAND Age: 77 years Sex: Female : 1945 Associated Diagnoses: None Author: Andry MCHUGH MD Procedure Operative Information Details: Date/ Time: 02/10/2023 14:47:00. Pre-Op Dx: Foreign Body in Bladder - T19.1XXA, Status post ureteroscopic laser ablation and basket extraction left ureteral calculi. Post-Op Dx: Same. Anesthesia Type: Local. Procedure: Local Cystoscopy with Stent Removal. Complications: None. Risks/Benefits/Informed Consent: Surgical risks, benefits, details of the procedure have been explained to the patient, Full informed consent has been obtained. Intraoperative Information Prepped: The patient was prepped with the Betadine solution. Anesthesia: 2% Xylocaine Jelly per urethra. Procedure: Cystoscopy and Left Stent Removal, The flexible Cystoscope was passed in retrograde fashion into the bladder without difficulty, The bladder was viewed in entirety and found to be without tumors or stones, Mild inflammation was seen surrounding the orifice with the stent seen protruding from it, The stent was then grasped and removed in its entirety. Specimens Removed: None. Devices Implanted: None. Postoperative Information Discharge: The patient tolerated the procedure well and was subsequently discharged home, Follow-up 6 months with KUB.. Normal [facility] Comment on above: Result Comment: Electronically Signed By : Andry MCHUGH MD\.br\Date and Time Signed: 02/10/23 14:48 EDT Outpatient Surgery Discharge Instructionon 02-10-2023 Outpatient Surgery Discharge Instruction [place] [id number] Patient Discharge Instructions PERSON INFORMATION Name: ARIADNA COPELAND Date of : 1945 Current Date: 02/10/2023 14:47:26 PHYSICIANS Admitting Physician: Andry MCHUGH MD Comment: Discharge Diagnosis: ARIADNA COPELAND has been given the following list of follow-up instructions, prescriptions, and patient education materials: IF UNABLE TO CONTACT YOUR PHYSICIAN AND YOU FEEL IT IS AN EMERGENCY, GO TO THE NEAREST EMERGENCY ROOM OR CALL 911 Follow up: With: Address: Sigif[place]: Andry MCHUGH [address] [place] [address], [address], [place] [id number] Business (1) Within 6 months Comments: Call for followup appointment in about six months with an abdominal X-ray prior to your visit (my office needs to send an order for this study) I will get records from the [facility] to see what the CAT scan demonstrated in terms of whether or not you have more stones in your kidneys. This may change the follow-up date depending on findings. Have a great day! Comment: PATIENT EDUCATION INFORMATION Instructions: Cystoscopy with Stent Removal ? Voiding after the procedure: there may be some pain, burning, urgency, frequency and blood tinged urine following the procedure. These symptoms usually resolve within 2-5 days. Drink the amount of fluid it takes to keep the urine pink to yellow or clear in color. Drinking enough water and fluids will help to ease any discomfort after your procedure. ? If you are having problems that seem out of the ordinary, please call. ? If unable to contact your physician and you feel it is an emergency, go to the nearest emergency room or call 911 ? Diet ? you may resume your normal diet. ? Activity ? you may resume your normal activities ? Call if you have a fever over 100 degrees. IMARIA LUISA DORIS M, have received the attached patient education materials/instructions and have verbalized understanding: May we do a follow up call? Yes No I was present when discharge instructions were given Patient Signature Date Clinican/Nurse Signature Date You may receive a survey from [employer]od[employer] Byers asking you to rate your care experience. Your feedback is important and will help us understand what we do well and how we can improve the quality of care we provide to you, your loved ones and our community. It?s an honor to serve you. Thank you for choosing [facility] Normal [facility] Lab Reportson 01-27-2023 Lab Reports [id number]#[id number]:127 Normal [facility] RAD - MISCon 01-23-2023 RAD - MISC [id number]#[id number]:127 Normal [facility] Insurance Correspondence Off iceon 01-22-2023 Insurance Correspondence Office [id number]:127 Normal [facility] GLYCOHEMOGLOBIN A1Con 2022 ADA RECOMMENDATION SEE BELOW Normal [facility] Comment on above: Result Comment: ADA RECOMMENDED LIMIT 4. 0 - 6.0 ADA THERAPEUTIC TARGET < 7.0 ACTION SUGGESTED > 7.0 Performed By: #### A 1C #### [facility] [address] [place] [address] Dr. Sam Balderrama Glucose [Mass/Vol] 154 mg/dL Normal [facility] Comment on above: Performed By: #### A1C #### [facility] [address] [place] [address] Dr. Sam Balderrama HbA1c (Bld) [Mass fraction] 7.0 % Critically high 4.5-6.2 [facility] Comment on above: Performed By: #### A1C #### [facility] [address] [place] [address] Dr. Sam Balderrama MICROALBUMIN URINEon 022 Albumin, Urine 42.4 ug/mL Normal Not Estab. [facility] Comment on above: Performed By: #### MALBLC #### [facility] [address] [place] [address] [address] Sam Balderrama CBC AUTO DIFFon 03-20-2022 BASO # 0.1 103/ul Normal 0.0-0.1 [facility] Comment on above: Performed By: #### A1C #### [facility] [address] [place] [address] [address] Sam Balderrama Basophils/100 WBC (Bld) 1.0 % Normal 0.2-2.0 [facility] Comment on above: Performed By: #### A1C #### [facility] [address] [place] [address] Dr. Sam Balderrama EO # 0.5 103/ul Normal 0.0-0.7 [facility] Comment on above: Performed By: #### A1C #### [facility] [address] [place] [address] Dr. Sam Balderrama Eosinophils/100 WBC (Bld) 6.4 % Normal 0.9-7.0 [facility] Comment on above: Performed By: #### A1C #### [facility] [address] [place] [address] Dr. Sam Balderrama Erythrocyte distribution width (RBC) [Ratio] 12.5 % Normal 11.0-15.0 [facility] Comment on above: Performed By: #### A1C #### [facility] [address] [place] [address] Dr. Sam Balderrama Hematocrit (Bld) [Volume fraction] 40.6 % Normal 36.0-48.0 [facility] Comment on above: Performed By: #### A1C #### [facility] [address] [place] [address] Dr. Sam Balderrama Hemoglobin (Bld) [Mass/Vol] 13.1 g/dL Normal 12.0-16.0 [facility] Comment on above: Performed By: #### A1C #### [facility] [address] [place] [address] Dr. Sam Balderrama IG # 0.04 10e3/ul Critically high 0.00-0.03 [facility] Comment on above: Performed By: #### A1C #### [facility] [address] [place] [address] Dr. Sam Balderrama IG % 0.5 % Normal 0.0-0.5 [facility] Comment on above: Performed By: #### A1C #### [facility] [address] [place] [address] Dr. Sam Balderrama LYMPH # 2.8 103/ul Normal 1.2-3.8 [facility] Comment on above: Performed By: #### A1C #### [facility] [address] [place] [address] Dr. Sam Balderrama Lymphocytes/100 WBC (Bld) 38.7 % Normal 20.5-60.0 [facility] Comment on above: Performed By: #### A1C #### [facility] [address] [place] [address] Dr. Sam Balderrama MANUAL DIFF REQ NO Normal [facility] Comment on above: Performed By: #### A1C #### [facility] [address] [place] [address] Dr. Sam Balderrama MCH (RBC) [Entitic mass] 30.6 pg Normal 26.7-34.0 [facility] Comment on above: Performed By: #### A1C #### [facility] [address] [place] [address] Dr. Sam Balderrama MCHC (RBC) [Mass/Vol] 32.3 g/dL Normal 29.9-35.2 [facility] Comment on above: Performed By: #### A1C #### [facility] [address] [place] [address] Dr. Sam Balderrama MCV (RBC) [Entitic vol] 94.9 fL Normal 81.0-99.0 [facility] Comment on above: Performed By: #### A1C #### [facility] [address] [place] [address] Dr. Sam Balderrama MONO # 0.6 103/ul Normal 0.3-0.8 [facility] Comment on above: Performed By: #### A1C #### [facility] [address] [place] [address] Dr. Sam Balderrama Monocytes/100 WBC (Bld) 8.4 % Normal 1.7-12.0 [facility] Comment on above: Performed By: #### A1C #### [facility] [address] [place] [address] Dr. Sam Balderrama NEUT # 3.3 103/ul Normal 1.4-6.5 [facility] Comment on above: Performed By: #### A1C #### [facility] [address] [place] [address] Dr. Sam Balderrama Neutrophils/100 WBC (Bld) 45.0 % Normal 43.0-75.0 [facility] Comment on above: Performed By: #### A1C #### [facility] [address] [place] [address] Dr. Sam Balderrama Platelet mean volume (Bld) [Entitic vol] 10.4 fL Normal 9.5-13.5 [facility] Comment on above: Performed By: #### A1C #### [facility] [address] [place] [address] Dr. Sam Balderrama PLT 257 103/ul Normal 150-450 [facility] Comment on above: Performed By: #### A1C #### [facility] [address] [place] [address] Dr. Sam Balderrama RBC 4.28 106/ul Normal 4.20-5.40 [facility] Comment on above: Performed By: #### A1C #### [facility] [address] [place] [address] Dr. Sam Balderrama WBC 7.3 103/ul Normal 4.0-11.0 [facility] Comment on above: Performed By: #### A1C #### [facility] [address] [place] [address] Dr. Sam Balderrama GLYCOHEMOGLOBIN A1Con 2021 ADA RECOMMENDATION SEE BELOW Normal [facility] Comment on above: Result Comment: ADA RECOMMENDED LIMIT 4. 0 - 6.0 ADA THERAPEUTIC TARGET < 7.0 ACTION SUGGESTED > 7.0 Performed By: #### B SENIOR CONSUMER INSIGHTS CONSULTANT, CMP, LIPA #### [facility] [address] [place] [address] Dr. Sam Balderrama Glucose [Mass/Vol] 169 mg/dL Normal [facility] Comment on above: Performed By: #### BNP, CMP, LIPA #### [facility] [address] [place] [address] [address] Sam Balderrama HbA1c (Bld) [Mass fraction] 7.5 % Critically high 4.5-6.2 [facility] Comment on above: Performed By: #### BNP, CMP, LIPA #### [facility] [address] [place] [address] [address] Sam Balderrama LIPID PROFILEon 03-20-2022 CHOL-HDL RATIO NORM SEE BELOW Normal [facility] Comment on above: Result Comment: 3.3 - 4.4 LOW RISK 4.4 - 7.1 AVERAGE RISK 7.1 - 11.0 MODERATE RISK >11.0 HIGH RISK Performed By: #### C VDTBH #### [facility] [address] [place] [address] [address] Sam Balderrama Cholesterol [Mass/Vol] 124 mg/dL Normal <=200 [facility] Comment on above: Performed By: #### CVDTBH #### [facility] [address] [place] [address] [address] Sam Balderrama Cholesterol in HDL [Mass/Vol] 59 mg/dL Normal 40-60 [facility] Comment on above: Performed By: #### CVDTBH #### [facility] [address] [place] [address] Dr. Sam Balderrama Cholesterol in LDL [Mass/Vol] 47.2 mg/dL Normal [facility] Comment on above: Performed By: #### CVDTBH #### [facility] [address] [place] [address] [address] Sam Balderrama Cholesterol.tota l/Cholesterol in HDL [Mass ratio] 2.1 {ratio} Normal [facility] Comment on above: Performed By: #### CVDTBH #### [facility] [address] [place] [address] [address] Sam Balderrama HDL NORMAL > or = 60 mg/dl - LO W CARDIOVASCULAR RISK <40 mg/dl - HIGH CARDIOVASCULAR RISK Normal [facility] Comment on above: Performed By: #### CVDTBH #### [facility] [address] [place] [address] [address] Sam Balderrama LDL CALC NORMAL SEE BELOW Normal [facility] Comment on above: Result Comment: <100 mg/dl OPTIMAL 100 - 129 mg/dl NEAR OR ABOVE OPTIMAL 130 - 159 mg/dl BORDERLINE HIGH 160 - 189 mg/dl HIGH >190 mg/dl VERY HIGH Performed By: #### C VDTBH #### [facility] [address] [place] [address] [address] Sam Balderrama Triglyceride [Mass/Vol] 89 mg/dL Normal <=150 [facility] Comment on above: Performed By: #### CVDTBH #### [facility] [address] [place] [address] [address] Sam Balderrama VLDL CALC 17.8 mg/dL Normal [facility] Comment on above: Performed By: #### CVDTBH #### [facility] [address] [place] [address] Dr. Sam Balderrama MG MAMM SCREEN 3D YAZMIN CADon 03-20-2022 MG MAMM SCREEN 3D YAZMIN CAD Patient: ARIADNA COPELAND Exam Date: 03/20/2022 : 1945 Gender:F Ordering : DR RUIZ YEE D.O. Admission #: [id number] Family : Order #: [id number] CLICK HERE TO VIEW EXAM RADIOLOGY REPORT PROCEDURE: MAMMOGRAM SCREENING 3D BILATERAL CAD COMPARISON: MG MAMM SCREEN YAZMIN W CAD, 12/04/2018. MG MAMM SCREEN YAZMIN W CAD, 01/06/2020. INDICATIONS: Screening mammography Calculator Name NCI Breast Cancer Risk Assessment Tool 5 Year Breast Cancer Risk 4.60% Lifetime Breast Cancer Risk 8.10% Personal Breast Cancer No Personal Ovarian Cancer No Treatments None Family Cancers Mother with breast cancer at age 80. LOCATION: The [facility] BREAST COMPOSITION: Scattered areas fibroglandular density. FINDINGS: DIAGNOSTIC CATEGORY 2--BENIGN FINDING. NO CHANGE FROM COMPARISON. Scattered benign-appearing lymph nodes are present. RIGHT BREAST: Stable well-circumscribed nodule upper outer quadrant, mid breast measuring 1.2 by 0.9 cm. Stable area of architectural distortion deep to a linear scar marker upper inner quadrant, mid breast. LEFT BREAST: Stable micro clip marker upper outer quadrant, mid breast scattered benign-type calcifications.. RECOMMENDATIONS: ROUTINE MAMMOGRAM AND CLINICAL EVALUATION IN 12 MONTHS. PLEASE NOTE: A NORMAL MAMMOGRAM DOES NOT EXCLUDE THE POSSIBILITY OF BREAST CANCER. A CLINICALLY SUSPICIOUS PALPABLE LUMP SHOULD BE BIOPSIED. Dictated by: Richard Herrera MD on 03/20/2022 at 12:32 Approved by: Richard Herrera MD on 03/20/2022 at 12:35 Normal [facility] SGPTon 03-20-2022 ALT [Catalytic activity/Vol] 26 U/L Normal 14-59 [facility] Comment on above: Performed By: #### CVDTBH #### [facility] [address] [place] [address] Dr. Sam Balderrama TSHon 03-20-2022 TSH 0.381 uIU/mL Normal 0.358-3.740 [facility] Comment on above: Performed By: #### CVDTBH #### [facility] [address] [place] [address] Dr. Sam Balderrama XR DEXA BONE DENSITYon 03-20 XR DEXA BONE DENSITY DEXA Bone Density Study CLINICAL: Evaluate bone mineral density. This menopausal COMPARISON: None FINDINGS: The bone density study was assessed by dual-energy x-ray absorptiometry with the Ellevation scanner. The test results are expressed in T-Score, which is used for diagnosis for osteoporosis, and reflects the standard deviations from the mean peak bone mineral density in young adults. Additional information regarding the Z-Score reflects the standard deviations from the mean peak bone mineral density for age- and gender- matched subject. Lumbar Spine (L1-L4): BMD (gm/cm2): 1.073 T-Score: -0.9 Left Hip: BMD (gm/cm2): 0.857 T-Score: -1.2 Left Femoral Neck: BMD (gm/cm2): 0.831 T-Score: -1.5 Right Hip: BMD (gm/cm2): 0.857 T-Score: -1.2 Right Femoral Neck: BMD (gm/cm2): 0.809 T-Score: -1.6 IMPRESSION: 1. Lumbar spine indicates no osteopenia or osteoporosis. 2. Both hips indicate osteopenia. REFERENCE: In children, postmenopausal women and males under age 50 not at increased risk for fractures, only Z-Scores, not T-Scores, are used to indicate fracture risk. A Z-Score above -2.0 is defined as within the expected range for age and Z-Score at or less than -2.0 is below the expected range for age. A Z-Score below the expected range for age in a patient with recent fractures and/or chronic corticosteroid treatment is consistent with a diagnosis of osteoporosis. In postmenopausal women and males over 50, comparison of the measured bone mineral density with the average value in young normal subjects (the T-Score) has been found to be useful in assessing fracture risk. Fracture risk approximately doubles for each 1.0 standard deviation (SD) that the individual's hip or spine bone mineral density is below the average value of young normal subjects. The World health Organization (WHO) has provided the following definitions: 1. Normal: T-Score within one standard deviation of young adult mean value (T-Score greater than -1.0). 2. Osteopenia (low bone mass): T-Score more than one standard deviation below the young adult mean but less than 2.5 standard deviations below the young adult mean (T-Score between -1.0 and -2.5). 3. Osteoporosis: T-Score more than 2.5 standard deviations below the young adult mean (T-Score less than -2.5). 4. Sever Osteoporosis (established osteoporosis): T-Score more than 2.5 standard deviations below young adult and one or more fragility fracture (T-Score less than -2.5 + fragility fractures). Electronically authenticated by: RICHARD HANNA Date: 2022-03-20 08:49 Normal [facility] Covid-19 PCR (CVDTB)on 02-09 SARS-CoV-2 (COVID-19) RNA MANNY+probe Ql (Unsp spec) Not detected Normal NOT DETECTED [facility] Comment on above: Result Comment: This test is not yet john roved or cleared by the [place] FDA. When there are no FDA-approved or cleared tests available, and other criteria are met, FDA can make tests available under an emergency access mechanism called an Emergency Use Authorization (EUA). The EUA for this test is supported by the [employer] Technician of Health and Human Service's (HHS's) declaration that circumstances exist to justify the emergency use of in vitro diagnostics for the detection and/or diagnosis of the virus that causes COVID-19. This EUA will remain in effect (meaning this test can be used) for the duration of the COVID-19 declaration justifying emergency of IVDs, unless it is terminated or revoked by FDA (after which the test may no longer be used). When diagnostic testing is negative, the possibility of a false negative should be considered in the context of a patient's recent exposures and the presence of clinical signs and symptoms consistent with SARS-CoV-2. Performed By: #### C VDTB #### [facility] [address] [place] [address] Dr. Sam Balderrama CBC AUTO DIFFon 01-07-2022 BASO # 0.1 103/ul Normal 0.0-0.1 [facility] Comment on above: Performed By: #### CBC #### [facility] [address] [place] [address] Dr. Sam Balderrama Basophils/100 WBC (Bld) 0.6 % Normal 0.2-2.0 [facility] Comment on above: Performed By: #### CBC #### [facility] [address] [place] [address] Dr. Sam Balderrama EO # 0.2 103/ul Normal 0.0-0.7 [facility] Comment on above: Performed By: #### CBC #### [facility] [address] [place] [address] Dr. Sam Balderrama Eosinophils/100 WBC (Bld) 2.7 % Normal 0.9-7.0 [facility] Comment on above: Performed By: #### CBC #### [facility] [address] [place] [address] Dr. Sam Balderrama Erythrocyte distribution width (RBC) [Ratio] 12.6 % Normal 11.0-15.0 [facility] Comment on above: Performed By: #### CBC #### [facility] [address] [place] [address] Dr. Sam Balderrama Hematocrit (Bld) [Volume fraction] 34.2 % Critically low 36.0-48.0 [facility] Comment on above: Performed By: #### CBC #### [facility] [address] [place] [address] Dr. Sam Balderrama Hemoglobin (Bld) [Mass/Vol] 10.9 g/dL Critically low 12.0-16.0 [facility] Comment on above: Performed By: #### CBC #### [facility] [address] [place] [address] Dr. Sam Balderrama IG # 0.10 10e3/ul Critically high 0.00-0.03 [facility] Comment on above: Performed By: #### CBC #### [facility] [address] [place] [address] Dr. Sam Balderrama IG % 1.1 % Critically high 0.0-0.5 [facility] Comment on above: Performed By: #### CBC #### [facility] [address] [place] [address] Dr. Sam Balderrama LYMPH # 2.7 103/ul Normal 1.2-3.8 [facility] Comment on above: Performed By: #### CBC #### [facility] [address] [place] [address] Dr. Sam Balderrama Lymphocytes/100 WBC (Bld) 31.0 % Normal 20.5-60.0 [facility] Comment on above: Performed By: #### CBC #### [facility] [address] [place] [address] Dr. Sam Balderrama MANUAL DIFF REQ NO Normal [facility] Comment on above: Performed By: #### CBC #### [facility] [address] [place] [address] Dr. Sam Balderrama MCH (RBC) [Entitic mass] 30.8 pg Normal 26.7-34.0 [facility] Comment on above: Performed By: #### CBC #### [facility] [address] [place] [address] Dr. Sam Balderrama MCHC (RBC) [Mass/Vol] 31.9 g/dL Normal 29.9-35.2 [facility] Comment on above: Performed By: #### CBC #### [facility] [address] [place] [address] Dr. Sam Balderrama MCV (RBC) [Entitic vol] 96.6 fL Normal 81.0-99.0 [facility] Comment on above: Performed By: #### CBC #### [facility] [address] [address] [address] Sam Balderrama MONO # 0.9 103/ul Critically high 0.3-0.8 [facility] Comment on above: Performed By: #### CBC #### [facility] [address] [address] [address] Sam Balderrama Monocytes/100 WBC (Bld) 10.5 % Normal 1.7-12.0 [facility] Comment on above: Performed By: #### CBC #### [facility] [address] [place] [address] Dr. Sam Balderrama NEUT # 4.7 103/ul Normal 1.4-6.5 [facility] Comment on above: Performed By: #### CBC #### [facility] [address] [address] [address] Sam Balderrama Neutrophils/100 WBC (Bld) 54.1 % Normal 43.0-75.0 [facility] Comment on above: Performed By: #### CBC #### [facility] [address] [address] [address] Sam Balderrama Platelet mean volume (Bld) [Entitic vol] 9.7 fL Normal 9.5-13.5 [facility] Comment on above: Performed By: #### CBC #### [facility] [address] [address] [address] Sam Balderrama PLT 258 103/ul Normal 150-450 [facility] Comment on above: Performed By: #### CBC #### [facility] [address] [address] [address] Sam Balderrama RBC 3.54 106/ul Critically low 4.20-5.40 [facility] Comment on above: Performed By: #### CBC #### [facility] [address] [address] [address] Sam Balderrama WBC 8.7 103/ul Normal 4.0-11.0 [facility] Comment on above: Performed By: #### CBC #### [facility] [address] [place] [address] Dr. Sam Balderrama POINT OF CARE GLUCOSEon 12-11 Glucose [Mass/Vol] 145 mg/dL Critically high 74-106 [facility] Comment on above: Performed By: #### A1C #### [facility] [address] [place] [address] Dr. Sam Balderrama PROF 14(COMP METB)on 022 Albumin [Mass/Vol] 2.8 g/dL Critically low 3.4-5.0 [facility] Comment on above: Performed By: #### CVDTBH #### [facility] [address] [place] [address] Dr. Sam Balderrama Albumin/Globulin [Mass ratio] 1.2 {ratio} Normal [facility] Comment on above: Performed By: #### CVDTBH #### [facility] [address] [place] [address] Dr. Sam Balderrama ALP [Catalytic activity/Vol] 48 U/L Normal 46-116 [facility] Comment on above: Performed By: #### CVDTBH #### [facility] [address] [place] [address] Dr. Sam Balderrama ALT [Catalytic activity/Vol] 32 U/L Normal 14-59 [facility] Comment on above: Performed By: #### CVDTBH #### [facility] [address] [place] [address] Dr. Sam Balderrama Anion gap [Moles/Vol] 10.9 mmol/L Normal [facility] Comment on above: Performed By: #### CVDTBH #### [facility] [address] [place] [address] Dr. Sam Balderrama AST [Catalytic activity/Vol] 17 U/L Normal 15-37 [facility] Comment on above: Performed By: #### CVDTBH #### [facility] [address] [place] [address] Dr. Sam Balderrama Bilirubin [Mass/Vol] 0.5 mg/dL Normal 0.2-1.0 [facility] Comment on above: Performed By: #### CVDTBH #### [facility] [address] [place] [address] Dr. Sam Balderrama Calcium [Mass/Vol] 8.4 mg/dL Critically low 8.5-10.1 [facility] Comment on above: Performed By: #### CVDTBH #### [facility] [address] [place] [address] Dr. Sam Balderrama Chloride [Moles/Vol] 105 mmol/L Normal 98-107 [facility] Comment on above: Performed By: #### CVDTBH #### [facility] [address] [place] [address] Dr. Sam Balderrama CO2 [Moles/Vol] 29.5 mmol/L Normal 21.0-32.0 [facility] Comment on above: Performed By: #### CVDTBH #### [facility] [address] [place] [address] Dr. Sam Balderrama Creatinine [Mass/Vol] 0.90 mg/dL Normal 0.55-1.02 [facility] Comment on above: Performed By: #### CVDTBH #### [facility] [address] [place] [address] Dr. Sam Balderrama EGFR-AF BELIZEAN >60 Normal >=60 [facility] Comment on above: Performed By: #### CVDTBH #### [facility] [address] [place] [address] Dr. Sam Balderrama EGFR-NON AF BELIZEAN >60 Normal >=60 [facility] Comment on above: Performed By: #### CVDTBH #### [facility] [address] [place] [address] Dr. Sam Balderrama Globulin (S) [Mass/Vol] 2.4 g/dL Normal [facility] Comment on above: Performed By: #### CVDTBH #### [facility] [address] [place] [address] Dr. Sam Balderrama Glucose [Mass/Vol] 134 mg/dL Critically high 74-106 [facility] Comment on above: Performed By: #### CVDTBH #### [facility] [address] [address] [address] Sam Balderrama Potassium [Moles/Vol] 4.4 mmol/L Normal 3.5-5.1 [facility] Comment on above: Performed By: #### CVDTBH #### [facility] [address] [place] [address] Dr. Sam Balderrama Protein [Mass/Vol] 5.2 g/dL Critically low 6.4-8.2 [facility] Comment on above: Performed By: #### CVDTBH #### [facility] [address] [place] [address] Dr. Sam Balderrama Sodium [Moles/Vol] 141 mmol/L Normal 136-145 [facility] Comment on above: Performed By: #### CVDTBH #### [facility] [address] [place] [address] Dr. Sam Balderrama Urea nitrogen [Mass/Vol] 14.0 mg/dL Normal 7.0-18.0 [facility] Comment on above: Performed By: #### CVDTBH #### [facility] [address] [place] [address] Dr. Sam Balderrama Urea nitrogen/Creatin ine [Mass ratio] 15.6 mg/mg Normal [facility] Comment on above: Performed By: #### CVDTBH #### [facility] [address] [place] [address] Dr. Sam Balderrama BNPon 01-06-2022 Natriuretic peptide B (Bld) [Mass/Vol] 213.0 pg/mL Normal <=1,800.0 [facility] Comment on above: Performed By: #### BNP, CMP, LIPA #### [facility] [address] [place] [address] Dr. Sam Balderrama CBC AUTO DIFFon 01-06-2022 BASO # 0.1 103/ul Normal 0.0-0.1 [facility] Comment on above: Performed By: #### BNP, CMP, LIPA #### [facility] [address] [place] [address] Dr. Sam Balderrama Basophils/100 WBC (Bld) 0.6 % Normal 0.2-2.0 [facility] Comment on above: Performed By: #### BNP, CMP, LIPA #### [facility] [address] [place] [address] Dr. Sam Balderrama EO # 0.2 103/ul Normal 0.0-0.7 [facility] Comment on above: Performed By: #### BNP, CMP, LIPA #### [facility] [address] [place] [address] Dr. Sam Balderrama Eosinophils/100 WBC (Bld) 2.5 % Normal 0.9-7.0 [facility] Comment on above: Performed By: #### BNP, CMP, LIPA #### [facility] [address] [place] [address] Dr. Sam Balderrama Erythrocyte distribution width (RBC) [Ratio] 12.7 % Normal 11.0-15.0 [facility] Comment on above: Performed By: #### BNP, CMP, LIPA #### [facility] [address] [place] [address] Dr. Sam Balderrama Hematocrit (Bld) [Volume fraction] 35.7 % Critically low 36.0-48.0 [facility] Comment on above: Performed By: #### BNP, CMP, LIPA #### [facility] [address] [place] [address] Dr. Sam Balderrama Hemoglobin (Bld) [Mass/Vol] 11.4 g/dL Critically low 12.0-16.0 [facility] Comment on above: Performed By: #### BNP, CMP, LIPA #### [facility] [address] [place] [address] Dr. Sam Balderrama IG # 0.15 10e3/ul Critically high 0.00-0.03 [facility] Comment on above: Performed By: #### BNP, CMP, LIPA #### [facility] [address] [place] [address] Dr. Sam Balderrama IG % 1.9 % Critically high 0.0-0.5 [facility] Comment on above: Performed By: #### BNP, CMP, LIPA #### [facility] [address] [place] [address] Dr. Sam Balderrama LYMPH # 2.7 103/ul Normal 1.2-3.8 [facility] Comment on above: Performed By: #### BNP, CMP, LIPA #### [facility] [address] [place] [address] Dr. Sam Balderrama Lymphocytes/100 WBC (Bld) 33.5 % Normal 20.5-60.0 [facility] Comment on above: Performed By: #### BNP, CMP, LIPA #### [facility] [address] [place] [address] Dr. Sam Balderrama MANUAL DIFF REQ NO Normal [facility] Comment on above: Performed By: #### BNP, CMP, LIPA #### [facility] [address] [place] [address] Dr. Sam Balderrama MCH (RBC) [Entitic mass] 31.0 pg Normal 26.7-34.0 [facility] Comment on above: Performed By: #### BNP, CMP, LIPA #### [facility] [address] [place] [address] Dr. Sam Balderrama MCHC (RBC) [Mass/Vol] 31.9 g/dL Normal 29.9-35.2 [facility] Comment on above: Performed By: #### BNP, CMP, LIPA #### [facility] [address] [place] [address] Dr. Sam Balderrama MCV (RBC) [Entitic vol] 97.0 fL Normal 81.0-99.0 [facility] Comment on above: Performed By: #### BNP, CMP, LIPA #### [facility] [address] [place] [address] Dr. Sam Balderrama MONO # 0.8 103/ul Normal 0.3-0.8 [facility] Comment on above: Performed By: #### BNP, CMP, LIPA #### [facility] [address] [place] [address] Dr. Sam Balderrama Monocytes/100 WBC (Bld) 9.8 % Normal 1.7-12.0 [facility] Comment on above: Performed By: #### BNP, CMP, LIPA #### [facility] [address] [place] [address] Dr. Sam Balderrama NEUT # 4.1 103/ul Normal 1.4-6.5 [facility] Comment on above: Performed By: #### BNP, CMP, LIPA #### [facility] [address] [place] [address] Dr. Sam Balderrama Neutrophils/100 WBC (Bld) 51.7 % Normal 43.0-75.0 [facility] Comment on above: Performed By: #### BNP, CMP, LIPA #### [facility] [address] [place] [address] Dr. Sam Balderrama Platelet mean volume (Bld) [Entitic vol] 9.6 fL Normal 9.5-13.5 [facility] Comment on above: Performed By: #### BNP, CMP, LIPA #### [facility] [address] [place] [address] Dr. Sam Balderrama PLT 281 103/ul Normal 150-450 [facility] Comment on above: Performed By: #### BNP, CMP, LIPA #### [facility] [address] [place] [address] Dr. Sam Balderrama RBC 3.68 106/ul Critically low 4.20-5.40 [facility] Comment on above: Performed By: #### BNP, CMP, LIPA #### [facility] [address] [place] [address] Dr. Sam Balderrama WBC 7.9 103/ul Normal 4.0-11.0 [facility] Comment on above: Performed By: #### BNP, CMP, LIPA #### [facility] [address] [place] [address] Dr. Sam Balderrama LIPASEon 01-06-2022 Lipase [Catalytic activity/Vol] 219.0 U/L Normal 73.0-393.0 [facility] Comment on above: Performed By: #### BNP, CMP, LIPA #### [facility] [address] [address] [address] Sam Balderrama OCC BLD IMMUNOASSAYon 2021 OCCULT BLOOD Negative Normal NEGATIVE [facility] Comment on above: Performed By: #### A1C #### [facility] [address] [place] [address] Dr. Sam Balderrama POINT OF CARE GLUCOSEon 12-10 Glucose [Mass/Vol] 162 mg/dL Critically high 74-106 [facility] Comment on above: Performed By: #### CVDTBH #### [facility] [address] [place] [address] Dr. Sam Balderrama Glucose [Mass/Vol] 103 mg/dL Normal 74-106 [facility] Comment on above: Performed By: #### BNP, CMP, LIPA #### [facility] [address] [place] [address] Dr. Sam Balderrama Glucose [Mass/Vol] 137 mg/dL Critically high 74-106 [facility] Comment on above: Performed By: #### BNP, CMP, LIPA #### [facility] [address] [place] [address] Dr. Sam Balderrama PROF 14(COMP METB)on 022 Albumin [Mass/Vol] 2.8 g/dL Critically low 3.4-5.0 [facility] Comment on above: Performed By: #### BNP, CMP, LIPA #### [facility] [address] [place] [address] Dr. Sam Balderrama Albumin/Globulin [Mass ratio] 1.1 {ratio} Normal [facility] Comment on above: Performed By: #### BNP, CMP, LIPA #### [facility] [address] [place] [address] Dr. Sam Balderrama ALP [Catalytic activity/Vol] 51 U/L Normal 46-116 [facility] Comment on above: Performed By: #### BNP, CMP, LIPA #### [facility] [address] [place] [address] Dr. Sam Balderrama ALT [Catalytic activity/Vol] 32 U/L Normal 14-59 [facility] Comment on above: Performed By: #### BNP, CMP, LIPA #### [facility] [address] [address] [address] Sam Balderrama Anion gap [Moles/Vol] 10.6 mmol/L Normal [facility] Comment on above: Performed By: #### BNP, CMP, LIPA #### [facility] [address] [address] [address] Sam Balderrama AST [Catalytic activity/Vol] 16 U/L Normal 15-37 [facility] Comment on above: Performed By: #### BNP, CMP, LIPA #### [facility] [address] [address] [address] Sam Balderrama Bilirubin [Mass/Vol] 0.5 mg/dL Normal 0.2-1.0 [facility] Comment on above: Performed By: #### BNP, CMP, LIPA #### [facility] [address] [address] [address] Sam Balderrama Calcium [Mass/Vol] 8.4 mg/dL Critically low 8.5-10.1 [facility] Comment on above: Performed By: #### BNP, CMP, LIPA #### [facility] [address] [address] [address] Sam Balderrama Chloride [Moles/Vol] 105 mmol/L Normal 98-107 [facility] Comment on above: Performed By: #### BNP, CMP, LIPA #### [facility] [address] [address] [address] Sam Balderrama CO2 [Moles/Vol] 28.7 mmol/L Normal 21.0-32.0 [facility] Comment on above: Performed By: #### BNP, CMP, LIPA #### [facility] [address] [address] [address] Sam Balderrama Creatinine [Mass/Vol] 0.94 mg/dL Normal 0.55-1.02 [facility] Comment on above: Performed By: #### BNP, CMP, LIPA #### [facility] [address] [address] [address] Sam Balderrama EGFR-AF BELIZEAN >60 Normal >=60 [facility] Comment on above: Performed By: #### BNP, CMP, LIPA #### [facility] [address] [address] [address] Sam Balderrama EGFR-NON AF BELIZEAN 58 mL/min/1.73m2 Critically low >=60 [facility] Comment on above: Performed By: #### BNP, CMP, LIPA #### [facility] [address] [address] [address] Sam Balderrama Globulin (S) [Mass/Vol] 2.6 g/dL Normal [facility] Comment on above: Performed By: #### BNP, CMP, LIPA #### [facility] [address] [address] [address] Sam Balderrama Glucose [Mass/Vol] 160 mg/dL Critically high 74-106 [facility] Comment on above: Performed By: #### BNP, CMP, LIPA #### [facility] [address] [place] [address] Dr. Sam Balderrama Potassium [Moles/Vol] 4.3 mmol/L Normal 3.5-5.1 [facility] Comment on above: Performed By: #### BNP, CMP, LIPA #### [facility] [address] [place] [address] Dr. Sam Balderrama Protein [Mass/Vol] 5.4 g/dL Critically low 6.4-8.2 [facility] Comment on above: Performed By: #### BNP, CMP, LIPA #### [facility] [address] [place] [address] Dr. Sam Balderrama Sodium [Moles/Vol] 140 mmol/L Normal 136-145 [facility] [facility] Comment on above: Performed By: #### BNP, CMP, LIPA #### [facility] [address] [place] [address] Dr. Sam Balderrama Urea nitrogen [Mass/Vol] 16.0 mg/dL Normal 7.0-18.0 [facility] Comment on above: Performed By: #### BNP, CMP, LIPA #### [facility] [address] [place] [address] Dr. Sam Balderrama Urea nitrogen/Creatin ine [Mass ratio] 17.0 mg/mg Normal [facility] Comment on above: Performed By: #### BNP, CMP, LIPA #### [facility] [address] [place] [address] Dr. Sam Balderrama BNPon 01-05-2022 Natriuretic peptide B (Bld) [Mass/Vol] 297.0 pg/mL Normal <=1,800.0 [facility] Comment on above: Performed By: #### BNP, CMP, LIPA #### [facility] [address] [place] [address] Dr. Sam Balderrama CBC AUTO DIFFon 01-05-2022 BASO # 0.1 103/ul Normal 0.0-0.1 [facility] Comment on above: Performed By: #### CVDTBH #### [facility] [address] [place] [address] Dr. Sam Balderrama Basophils/100 WBC (Bld) 0.7 % Normal 0.2-2.0 [facility] Comment on above: Performed By: #### CVDTBH #### [facility] [address] [place] [address] Dr. Sam Balderrama EO # 0.3 103/ul Normal 0.0-0.7 [facility] Comment on above: Performed By: #### CVDTBH #### [facility] [address] [place] [address] Dr. Sam Balderrama Eosinophils/100 WBC (Bld) 2.6 % Normal 0.9-7.0 [facility] Comment on above: Performed By: #### CVDTBH #### [facility] [address] [place] [address] Dr. Sam Balderrama Erythrocyte distribution width (RBC) [Ratio] 12.7 % Normal 11.0-15.0 [facility] Comment on above: Performed By: #### CVDTBH #### [facility] [address] [place] [address] Dr. Sam Balderrama Hematocrit (Bld) [Volume fraction] 36.7 % Normal 36.0-48.0 [facility] Comment on above: Performed By: #### CVDTBH #### [facility] [address] [address] [address] Sam Balderrama Hemoglobin (Bld) [Mass/Vol] 11.9 g/dL Critically low 12.0-16.0 [facility] Comment on above: Performed By: #### CVDTBH #### [facility] [address] [address] [address] Sam Balderrama IG # 0.42 10e3/ul Critically high 0.00-0.03 [facility] Comment on above: Performed By: #### CVDTBH #### [facility] [address] [place] [address] Dr. Sam Balderrama IG % 3.8 % Critically high 0.0-0.5 [facility] Comment on above: Performed By: #### CVDTBH #### [facility] [address] [place] [address] Dr. Sam Balderrama LYMPH # 3.1 103/ul Normal 1.2-3.8 [facility] Comment on above: Performed By: #### CVDTBH #### [facility] [address] [place] [address] Dr. Sam Balderrama Lymphocytes/100 WBC (Bld) 27.7 % Normal 20.5-60.0 [facility] Comment on above: Performed By: #### CVDTBH #### [facility] [address] [place] [address] Dr. Sam Balderrama MANUAL DIFF REQ NO Normal [facility] Comment on above: Performed By: #### CVDTBH #### [facility] [address] [place] [address] Dr. Sam Balderrama MCH (RBC) [Entitic mass] 30.5 pg Normal 26.7-34.0 [facility] Comment on above: Performed By: #### CVDTBH #### [facility] [address] [place] [address] Dr. Sam Balderrama MCHC (RBC) [Mass/Vol] 32.4 g/dL Normal 29.9-35.2 [facility] Comment on above: Performed By: #### CVDTBH #### [facility] [address] [address] [address] Sam Balderrama MCV (RBC) [Entitic vol] 94.1 fL Normal 81.0-99.0 [facility] Comment on above: Performed By: #### CVDTBH #### [facility] [address] [place] [address] Dr. Sam Balderrama MONO # 1.1 103/ul Critically high 0.3-0.8 [facility] Comment on above: Performed By: #### CVDTBH #### [facility] [address] [place] [address] Dr. Sam Balderrama Monocytes/100 WBC (Bld) 9.5 % Normal 1.7-12.0 [facility] Comment on above: Performed By: #### CVDTBH #### [facility] [address] [place] [address] Dr. Sam Balderrama NEUT # 6.2 103/ul Normal 1.4-6.5 [facility] Comment on above: Performed By: #### CVDTBH #### [facility] [address] [place] [address] Dr. Sam Balderrama Neutrophils/100 WBC (Bld) 55.7 % Normal 43.0-75.0 [facility] Comment on above: Performed By: #### CVDTBH #### [facility] [address] [place] [address] Dr. Sam Balderrama Platelet mean volume (Bld) [Entitic vol] 9.4 fL Critically low 9.5-13.5 [facility] Comment on above: Performed By: #### CVDTBH #### [facility] [address] [place] [address] Dr. Sam Balderrama PLT 308 103/ul Normal 150-450 [facility] Comment on above: Performed By: #### CVDTBH #### [facility] [address] [place] [address] Dr. Sam Balderrama RBC 3.90 106/ul Critically low 4.20-5.40 [facility] Comment on above: Performed By: #### CVDTBH #### [facility] [address] [place] [address] Dr. Sam Balderrama WBC 11.1 103/ul Critically high 4.0-11.0 [facility] Comment on above: Performed By: #### CVDTBH #### [facility] [address] [place] [address] Dr. Sam Balderrama Covid-19 PCR ([facility])on 12-10 SARS-CoV-2 (COVID-19) RNA MANNY+probe Ql (Unsp spec) Detected Critically abnormal NOT DETECTED [facility] Comment on above: Result Comment: This test is not yet john roved or cleared by the [place] FDA. When there are no FDA-approved or cleared tests available, and other criteria are met, FDA can make tests available under an emergency access mechanism called an Emergency Use Authorization (EUA). The EUA for this test is supported by the [employer] Maintenance Technician of Health and Human Service's declaration that circumstances exist to justify the emergency use of in vitro diagnostics for the detection and/or diagnosis of the virus that causes COVID-19. This EUA will remain in effect for the duration of the COVID-19 declaration justifying emergency of IVDs, unless it is terminated or revoked by the FDA (after which the test may no longer be used). Performed By: #### B SENIOR CONSUMER INSIGHTS CONSULTANT, CMP, LIPA #### [facility] [address] [place] [address] Dr. Sam Balderrama LACTATE/LACTIC ACIDon 2021 Lactate [Moles/Vol] 1.6 mmol/L Normal 0.4-1.9 [facility] Comment on above: Performed By: #### A1C #### [facility] [address] [place] [address] Dr. Sam Balderrama Lactate [Moles/Vol] 2.2 mmol/L Critically high 0.4-1.9 [facility] Comment on above: Performed By: #### BNP, CMP, LIPA #### [facility] [address] [place] [address] Dr. Sam Balderrama LIPASEon 01-05-2022 Lipase [Catalytic activity/Vol] 110.0 U/L Normal 73.0-393.0 [facility] Comment on above: Performed By: #### BNP, CMP, LIPA #### [facility] [address] [address] [address] Sam Balderrama POINT OF CARE GLUCOSEon 05 Glucose [Mass/Vol] 220 mg/dL Critically high 74-106 [facility] Comment on above: Performed By: #### CVDTBH #### [facility] [address] [place] [address] Dr. Sam Balderrama Glucose [Mass/Vol] 136 mg/dL Critically high 74-106 [facility] Comment on above: Performed By: #### CVDTBH #### [facility] [address] [place] [address] Dr. Sam Balderrama Glucose [Mass/Vol] 156 mg/dL Critically high 74-106 [facility] Comment on above: Performed By: #### BNP, CMP, LIPA #### [facility] [address] [place] [address] Dr. Sam Balderrama PROF 14(COMP METB)on 022 Albumin [Mass/Vol] 2.8 g/dL Critically low 3.4-5.0 [facility] Comment on above: Performed By: #### BNP, CMP, LIPA #### [facility] [address] [place] [address] Dr. Sam Balderrama Albumin/Globulin [Mass ratio] 1.1 {ratio} Normal [facility] Comment on above: Performed By: #### BNP, CMP, LIPA #### [facility] [address] [place] [address] Dr. Sam Balderrama ALP [Catalytic activity/Vol] 57 U/L Normal 46-116 [facility] Comment on above: Performed By: #### BNP, CMP, LIPA #### [facility] [address] [place] [address] Dr. Sam Balderrama ALT [Catalytic activity/Vol] 38 U/L Normal 14-59 [facility] Comment on above: Performed By: #### BNP, CMP, LIPA #### [facility] [address] [place], [place] [id number] Dr. Sam Balderrama Anion gap [Moles/Vol] 10.2 mmol/L Normal [facility] Comment on above: Performed By: #### BNP, CMP, LIPA #### [facility] [address] [place] [address] Dr. Sam Balderrama AST [Catalytic activity/Vol] 19 U/L Normal 15-37 [facility] Comment on above: Performed By: #### BNP, CMP, LIPA #### [facility] [address] [place] [address] Dr. Sam Balderrama Bilirubin [Mass/Vol] 0.9 mg/dL Normal 0.2-1.0 [facility] Comment on above: Performed By: #### BNP, CMP, LIPA #### [facility] [address] [place] [address] Dr. Sam Balderrama Calcium [Mass/Vol] 8.3 mg/dL Critically low 8.5-10.1 [facility] Comment on above: Performed By: #### BNP, CMP, LIPA #### [facility] [address] [place] [address] Dr. Sam Bladerrama Chloride [Moles/Vol] 102 mmol/L Normal 98-107 [facility] Comment on above: Performed By: #### BNP, CMP, LIPA #### [facility] [address] [place] [address] Dr. Sam Balderrama CO2 [Moles/Vol] 29.1 mmol/L Normal 21.0-32.0 [facility] Comment on above: Performed By: #### BNP, CMP, LIPA #### [facility] [address] [place] [address] Dr. Sam Balderrama Creatinine [Mass/Vol] 0.88 mg/dL Normal 0.55-1.02 [facility] Comment on above: Performed By: #### BNP, CMP, LIPA #### [facility] [address] [place] [address] Dr. Sam Balderrama EGFR-AF BELIZEAN >60 Normal >=60 [facility] Comment on above: Performed By: #### BNP, CMP, LIPA #### [facility] [address] [address] [address] Sam Balderrama EGFR-NON AF BELIZEAN >60 Normal >=60 [facility] Comment on above: Performed By: #### BNP, CMP, LIPA #### [facility] [address] [address] [address] Sam Balderrama Globulin (S) [Mass/Vol] 2.6 g/dL Normal [facility] Comment on above: Performed By: #### BNP, CMP, LIPA #### [facility] [address] [address] [address] Sam Balderrama Glucose [Mass/Vol] 160 mg/dL Critically high 74-106 [facility] Comment on above: Performed By: #### BNP, CMP, LIPA #### [facility] [address] [address] [address] Sam Balderrama Potassium [Moles/Vol] 3.3 mmol/L Critically low 3.5-5.1 [facility] Comment on above: Performed By: #### BNP, CMP, LIPA #### [facility] [address] [address] [address] Sam Balderrama Protein [Mass/Vol] 5.4 g/dL Critically low 6.4-8.2 [facility] Comment on above: Performed By: #### BNP, CMP, LIPA #### [facility] [address] [address] [address] Sam Balderrama Sodium [Moles/Vol] 138 mmol/L Normal 136-145 [facility] Comment on above: Performed By: #### BNP, CMP, LIPA #### [facility] [address] [address] [address] Sam Balderrama Urea nitrogen [Mass/Vol] 18.0 mg/dL Normal 7.0-18.0 [facility] Comment on above: Performed By: #### BNP, CMP, LIPA #### [facility] [address] [address] [address] Sam Balderrama Urea nitrogen/Creatin ine [Mass ratio] 20.5 mg/mg Normal [facility] Comment on above: Performed By: #### BNP, CMP, LIPA #### [facility] [address] [address] [address] Sam Balderrama CARDIAC LINDA ADMITon 022 CK [Catalytic activity/Vol] 73 U/L Normal 26-192 [facility] Comment on above: Performed By: #### BNP, CMP, LIPA #### [facility] [address] [address] [address] Sam Balderrama CK.MB [Mass/Vol] 1.78 ng/mL Normal <=3.60 [facility] Comment on above: Performed By: #### BNP, CMP, LIPA #### [facility] [address] [address] [address] Sam Balderrama HSTROP 36.5 pg/mL Normal 4.0-51.3 [facility] Comment on above: Result Comment: CUT-OFF POINTS HAVE BEEN ESTABLISHED BASED ON THE FOURTH UNIVERSAL DEFINITIONS OF MYOCARDIAL INFARCTION. THE UPPER REFERENCE LIMIT (URL) OF TROPONIN, DEFINED THE 99TH PERCENTILE OF cTnI DISTRIBUTION IN A REFERENCE POPULATION, HAS BEEN CONFIRMED THE DECISION THRESHOLD FOR VT DIAGNOSIS. Performed By: #### B SENIOR CONSUMER INSIGHTS CONSULTANT, CMP, LIPA #### [facility] [address] [place] [address] Dr. Sam Balderrama JAZMYNE 42 ng/mL Normal 9-82 [facility] Comment on above: Performed By: #### BNP, CMP, LIPA #### [facility] [address] [place] [address] Dr. Sam Balderrama CBC AUTO DIFFon 01-04-2022 BASO # 0.0 103/ul Normal 0.0-0.1 [facility] Comment on above: Performed By: #### CBC #### [facility] [address] [place] [address] Dr. Sam Balderrama Basophils/100 WBC (Bld) 0.1 % Critically low 0.2-2.0 [facility] Comment on above: Performed By: #### CBC #### [facility] [address] [place] [address] Dr. Sam Balderrama EO # 0.3 103/ul Normal 0.0-0.7 [facility] Comment on above: Performed By: #### CBC #### [facility] [address] [address] [address] Sam Balderrama Eosinophils/100 WBC (Bld) 1.7 % Normal 0.9-7.0 [facility] Comment on above: Performed By: #### CBC #### [facility] [address] [address] [address] Sam Balderrama Erythrocyte distribution width (RBC) [Ratio] 12.6 % Normal 11.0-15.0 [facility] Comment on above: Performed By: #### CBC #### [facility] [address] [place] [address] Dr. Sam Balderrama Hematocrit (Bld) [Volume fraction] 43.2 % Normal 36.0-48.0 [facility] Comment on above: Performed By: #### CBC #### [facility] [address] [place] [address] Dr. Sam Balderrama Hemoglobin (Bld) [Mass/Vol] 14.3 g/dL Normal 12.0-16.0 [facility] Comment on above: Performed By: #### CBC #### [facility] [address] [place] [address] Dr. Sam Balderrama IG # 0.85 10e3/ul Critically high 0.00-0.03 [facility] Comment on above: Performed By: #### CBC #### [facility] [address] [place] [address] Dr. Sam Balderrama IG % 5.3 % Critically high 0.0-0.5 [facility] Comment on above: Performed By: #### CBC #### [facility] [address] [place] [address] Dr. Sam Balderrama LYMPH # 2.6 103/ul Normal 1.2-3.8 [facility] Comment on above: Performed By: #### CBC #### [facility] [address] [place] [address] Dr. Sam Balderrama Lymphocytes/100 WBC (Bld) 16.4 % Critically low 20.5-60.0 [facility] Comment on above: Performed By: #### CBC #### [facility] [address] [place] [address] Dr. Sam Balderrama MANUAL DIFF REQ NO Normal [facility] Comment on above: Performed By: #### CBC #### [facility] [address] [place] [address] Dr. Sam Balderrama MCH (RBC) [Entitic mass] 31.0 pg Normal 26.7-34.0 [facility] Comment on above: Performed By: #### CBC #### [facility] [address] [place] [address] Dr. Sam Balderrama MCHC (RBC) [Mass/Vol] 33.1 g/dL Normal 29.9-35.2 [facility] Comment on above: Performed By: #### CBC #### [facility] [address] [place] [address] Dr. Sam Balderrama MCV (RBC) [Entitic vol] 93.7 fL Normal 81.0-99.0 [facility] Comment on above: Performed By: #### CBC #### [facility] [address] [place] [address] Dr. Sam Balderrama MONO # 1.2 103/ul Critically high 0.3-0.8 [facility] Comment on above: Performed By: #### CBC #### [facility] [address] [place] [address] Dr. Sam Balderrama Monocytes/100 WBC (Bld) 7.7 % Normal 1.7-12.0 [facility] Comment on above: Performed By: #### CBC #### [facility] [address] [place] [address] Dr. Sam Balderrama NEUT # 11.0 103/ul Critically high 1.4-6.5 [facility] Comment on above: Performed By: #### CBC #### [facility] [address] [place] [address] Dr. Sam Balderrama Neutrophils/100 WBC (Bld) 68.8 % Normal 43.0-75.0 [facility] Comment on above: Performed By: #### CBC #### [facility] [address] [address] [address] Sam Balderrama Platelet mean volume (Bld) [Entitic vol] 9.9 fL Normal 9.5-13.5 [facility] Comment on above: Performed By: #### CBC #### [facility] [address] [place] [address] Dr. Sam Balderrama PLT 337 103/ul Normal 150-450 [facility] Comment on above: Performed By: #### CBC #### [facility] [address] [address] [address] Sam Balderrama RBC 4.61 106/ul Normal 4.20-5.40 [facility] Comment on above: Performed By: #### CBC #### [facility] [address] [place] [address] Dr. Sam Balderrama WBC 16.0 103/ul Critically high 4.0-11.0 [facility] Comment on above: Performed By: #### CBC #### [facility] [address] [place] [address] Dr. Sam Balderrama CULTURE URINEon 01-04-2022 CULTURE URINE Culture Observations : HEAVY GROWTH OF MIXED GENITAL ALEJANDRO. NO POTENTIAL PATHOGENS SEEN. Normal [facility] Comment on above: Performed By: #### BNP, CMP, LIPA #### [facility] [address] [place] [address] Dr. Sam Balderrama ER URINE PROFILEon 2 Bilirubin Ql (U) Negative Normal NEGATIVE [facility] Comment on above: Performed By: #### A1C #### [facility] [address] [place] [address] Dr. Sam Balderrama Clarity (U) CLEAR Normal CLEAR [facility] Comment on above: Performed By: #### A1C #### [facility] [address] [place] [address] Dr. Sam Balderrama Color (U) LT. YELLOW Normal YELLOW [facility] Comment on above: Performed By: #### A1C #### [facility] [address] [place] [address] Dr. Sam Balderrama ERUAHD A micrscopic examina tion will be performed if indicated. Normal [facility] Comment on above: Performed By: #### A1C #### [facility] [address] [place] [address] Dr. Sam Balderrama Glucose Ql (U) Negative Normal NEGATIVE [facility] Comment on above: Performed By: #### A1C #### [facility] [address] [place] [address] Dr. Sam Balderrama Hemoglobin Ql (U) Negative Normal NEGATIVE [facility] Comment on above: Performed By: #### A1C #### [facility] [address] [place] [address] Dr. Sam Balderrama Ketones Ql (U) Negative Normal NEGATIVE [facility] Comment on above: Performed By: #### A1C #### [facility] [address] [place] [address] Dr. Sam Balderrama LEUKOCYTES TRACE Abnormal NEGATIVE [facility] Comment on above: Performed By: #### A1C #### [facility] [address] [place] [address] Dr. Sam Balderrama Nitrite Ql (U) Negative Normal NEGATIVE [facility] Comment on above: Performed By: #### A1C #### [facility] [address] [place] [address] Dr. Sam Balderrama pH (U) 6.0 [pH] Normal 5-9 [facility] Comment on above: Performed By: #### A1C #### [facility] [address] [place] [address] Dr. Sam Balderrama SPEC GRAVITY <=1.005 Abnormal 1.005-<=1.0 25 [facility] Comment on above: Performed By: #### A1C #### [facility] [address] [place] [address] Dr. Sam Balderrama UA PROTEIN Negative Normal NEGATIVE/ TRACE [facility] Comment on above: Performed By: #### A1C #### [facility] [address] [place] [address] Dr. Sam Balderrama UR MICRO IND INDICATED Normal [facility] Comment on above: Performed By: #### A1C #### [facility] [address] [place] [address] Dr. Sam Balderrama Urobilinogen Qn (U) 0.2 {Bruna'U}/dL Normal 0.2 - 1.0 [facility] Comment on above: Performed By: #### A1C #### [facility] [address] [place] [address] Dr. Sam Balderrama GI PANEL (PCR)on 01-04-2022 Adenovirus F 40/41 Not detected Normal NOT DETECTED [facility] Comment on above: Performed By: #### CVDTBH #### [facility] [address] [place] [address] Dr. Sam Balderrama Astrovirus Not detected Normal NOT DETECTED [facility] Comment on above: Performed By: #### CVDTBH #### [facility] [address] [place] [address] Dr. Sam Balderrama C. Diff toxin A/B Detected Critically abnormal NOT DETECTED [facility] Comment on above: Performed By: #### CVDTBH #### [facility] [address] [place] [address] Dr. Sam Balderrama Campylobacter Not detected Normal NOT DETECTED [facility] Comment on above: Performed By: #### CVDTBH #### [facility] [address] [place] [address] Dr. Sam Balderrama Cryptosporidium Not detected Normal NOT DETECTED [facility] Comment on above: Performed By: #### CVDTBH #### [facility] [address] [place] [address] Dr. Sam Balderrama Cyclos. Cayetanensis Not detected Normal NOT DETECTED [facility] Comment on above: Performed By: #### CVDTBH #### [facility] [address] [place] [address] Dr. Sam Balderrama E. Coli O157 Not Applicable Normal Not Applicable [facility] Comment on above: Performed By: #### CVDTBH #### [facility] [address] [place] [address] Dr. Sam Balderrama E. histolytica Not detected Normal NOT DETECTED [facility] Comment on above: Performed By: #### CVDTBH #### [facility] [address] [place] [address] Dr. Sam Balderrama EAEC Not detected Normal NOT DETECTED [facility] Comment on above: Performed By: #### CVDTBH #### [facility] [address] [place] [address] Dr. Sam Balderrama EIEC Not detected Normal NOT DETECTED [facility] Comment on above: Performed By: #### CVDTBH #### [facility] [address] [place] [address] Dr. Sam Balderrama EPEC Not detected Normal NOT DETECTED [facility] Comment on above: Performed By: #### CVDTBH #### [facility] [address] [place] [address] Dr. Sam Balderrama ETEC Not detected Normal NOT DETECTED [facility] Comment on above: Performed By: #### CVDTBH #### [facility] [address] [place] [address] Dr. Sam Balderrama G. Lamblia Not detected Normal NOT DETECTED [facility] Comment on above: Performed By: #### CVDTBH #### [facility] [address] [place] [address] Dr. Sam STORY CONTROLS PASSED Normal [facility] Comment on above: Performed By: #### CVDTBH #### [facility] [address] [place] [address] Dr. Sam [facility] HEADER GI PANEL BACTERIA Normal [facility] Comment on above: Performed By: #### CVDTBH #### [facility] [address] [place] [address] Dr. Sam FUNES ECOLI GI PANEL DIARRHEAGEN IC E.COLI / SHIGELLA Normal [facility] Comment on above: Performed By: #### CVDTBH #### [facility] [address] [place] [address] Dr. Sam FUNES INFO SEE BELOW Normal [facility] Comment on above: Result Comment: EAEC- Enteroaggregative E. Coli EPEC- Enteropathogenic E. Coli ETEC- Enterotoxigenic E. Coli lt/st STEC- Shigella-like toxin-producing E. Coli stx1/stx2 EIEC- Shigella/Enteroinvasive E. Coli Performed By: #### C VDTBH #### [facility] [address] [address] [address] Sam FUNES PARASITES GI PANEL PARASITES Normal [facility] Comment on above: Performed By: #### CVDTBH #### [facility] [address] [place] [address] Dr. Sam FUNES VIRUS GI PANEL VIRUSES Normal [facility] Comment on above: Performed By: #### CVDTBH #### [facility] [address] [place] [address] Dr. Sam Balderrama Norovirus GI/GII Not detected Normal NOT DETECTED [facility] Comment on above: Performed By: #### CVDTBH #### [facility] [address] [place] [address] Dr. Sam Balderrama P. Shigelloides Not detected Normal NOT DETECTED [facility] Comment on above: Performed By: #### CVDTBH #### [facility] [address] [place] [address] Dr. Sam Balderrama Rotavirus A Not detected Normal NOT DETECTED [facility] Comment on above: Performed By: #### CVDTBH #### [facility] [address] [place] [address] Dr. Sam Balderrama Salmonella Not detected Normal NOT DETECTED [facility] Comment on above: Performed By: #### CVDTBH #### [facility] [address] [place] [address] Dr. Sam Balderrama Sapovirus Not detected Normal NOT DETECTED [facility] Comment on above: Performed By: #### CVDTBH #### [facility] [address] [place] [address] Dr. Sam Balderrama STEC Not detected Normal NOT DETECTED [facility] Comment on above: Performed By: #### CVDTBH #### [facility] [address] [place] [address] Dr. Sam Balderrama Vibrio Not detected Normal NOT DETECTED [facility] Comment on above: Performed By: #### CVDTBH #### [facility] [address] [place] [address] Dr. Sam Balderrama Vibrio Cholera Not detected Normal NOT DETECTED [facility] Comment on above: Performed By: #### CVDTBH #### [facility] [address] [place] [address] Dr. Sam Balderrama Y. Enterocolitica Not detected Normal NOT DETECTED [facility] Comment on above: Performed By: #### CVDTBH #### [facility] [address] [place] [address] Dr. Sam Balderrama LIPASEon 01-04-2022 Lipase [Catalytic activity/Vol] 799.0 U/L Critically high 73.0-393.0 [facility] Comment on above: Performed By: #### BNP, CMP, LIPA #### [facility] [address] [place] [address] Dr. Sam Balderrama PROF 14(COMP METB)on Albumin [Mass/Vol] 3.8 g/dL Normal 3.4-5.0 [facility] Comment on above: Performed By: #### BNP, CMP, LIPA #### [facility] [address] [place] [address] Dr. Sam Balderrama Albumin/Globulin [Mass ratio] 1.2 {ratio} Normal [facility] Comment on above: Performed By: #### BNP, CMP, LIPA #### [facility] [address] [place] [address] Dr. Sam Balderrama ALP [Catalytic activity/Vol] 72 U/L Normal 46-116 [facility] Comment on above: Performed By: #### BNP, CMP, LIPA #### [facility] [address] [place] [address] Dr. Sam Balderrama ALT [Catalytic activity/Vol] 49 U/L Normal 14-59 [facility] Comment on above: Performed By: #### BNP, CMP, LIPA #### [facility] [address] [place] [address] Dr. Sam Balderrama Anion gap [Moles/Vol] 13.2 mmol/L Normal [facility] Comment on above: Performed By: #### BNP, CMP, LIPA #### [facility] [address] [address] [address] Sam Balderrama AST [Catalytic activity/Vol] 24 U/L Normal 15-37 [facility] Comment on above: Performed By: #### BNP, CMP, LIPA #### [facility] [address] [address] [address] Sam Balderrama Bilirubin [Mass/Vol] 0.9 mg/dL Normal 0.2-1.0 [facility] Comment on above: Performed By: #### BNP, CMP, LIPA #### [facility] [address] [address] [address] Sam Balderrama Calcium [Mass/Vol] 9.2 mg/dL Normal 8.5-10.1 [facility] Comment on above: Performed By: #### BNP, CMP, LIPA #### [facility] [address] [address] [address] Sam Balderrama Chloride [Moles/Vol] 95 mmol/L Critically low 98-107 [facility] Comment on above: Performed By: #### BNP, CMP, LIPA #### [facility] [address] [address] [address] Sam Balderrama CO2 [Moles/Vol] 28.9 mmol/L Normal 21.0-32.0 [facility] Comment on above: Performed By: #### BNP, CMP, LIPA #### [facility] [address] [address] [address] Sam Balderrama Creatinine [Mass/Vol] 1.23 mg/dL Critically high 0.55-1.02 [facility] Comment on above: Performed By: #### BNP, CMP, LIPA #### [facility] [address] [address] [address] Sam Balderrama EGFR-AF BELIZEAN 51 mL/min/1.73m2 Critically low >=60 [facility] Comment on above: Performed By: #### BNP, CMP, LIPA #### [facility] [address] [address] [address] Sam Balderrama EGFR-NON AF BELIZEAN 42 mL/min/1.73m2 Critically low >=60 [facility] Comment on above: Performed By: #### BNP, CMP, LIPA #### [facility] [address] [address] [address] Sam Balderrama Globulin (S) [Mass/Vol] 3.2 g/dL Normal [facility] Comment on above: Performed By: #### BNP, CMP, LIPA #### [facility] [address] [address] [address] Sam Balderrama Glucose [Mass/Vol] 204 mg/dL Critically high 74-106 [facility] Comment on above: Performed By: #### BNP, CMP, LIPA #### [facility] [address] [place] [address] Dr. Sam Balderrama Potassium [Moles/Vol] 4.1 mmol/L Normal 3.5-5.1 [facility] Comment on above: Performed By: #### BNP, CMP, LIPA #### [facility] [address] [place] [address] Dr. Sam Balderrama Protein [Mass/Vol] 7.0 g/dL Normal 6.4-8.2 [facility] Comment on above: Performed By: #### BNP, CMP, LIPA #### [facility] [address] [place] [address] Dr. Sam Balderrama Sodium [Moles/Vol] 133 mmol/L Critically low 136-145 [facility] Comment on above: Performed By: #### BNP, CMP, LIPA #### [facility] [address] [place] [address] Dr. Sam Balderrama Urea nitrogen [Mass/Vol] 32.0 mg/dL Critically high 7.0-18.0 [facility] Comment on above: Performed By: #### BNP, CMP, LIPA #### [facility] [address] [place] [address] Dr. Sam Balderrama Urea nitrogen/Creatin ine [Mass ratio] 26.0 mg/mg Normal [facility] Comment on above: Performed By: #### BNP, CMP, LIPA #### [facility] [address] [place] [address] Dr. Sam Balderrama URINE MICROSCOPIC ONLYon BACTERIA TRACE Abnormal NONE SEEN [facility] Comment on above: Performed By: #### A1C #### [facility] [address] [place] [address] Dr. Sam Balderrama Bacteria identified Cx Nom (U) INDICATED Normal [facility] Comment on above: Performed By: #### A1C #### [facility] [address] [place] [address] Dr. Sam Balderrama CAST SEEN Abnormal NONE SEEN [facility] Comment on above: Performed By: #### A1C #### [facility] [address] [place] [address] Dr. Sam Balderrama Crystals LM Nom (Urine sed) NONE SEEN Normal NONE SEEN [facility] Comment on above: Performed By: #### A1C #### [facility] [address] [place] [address] Dr. Sam Balderrama Epithelial cells LM Ql (Urine sed) MODERATE Abnormal NONE SEEN /RARE [facility] Comment on above: Performed By: #### A1C #### [facility] [address] [place] [address] Dr. Sam Balderrama MUCOUS NONE SEEN Normal NONE SEEN [facility] Comment on above: Performed By: #### A1C #### [facility] [address] [place] [address] Dr. Sam Balderrama RBC 0-2 Normal 0-2 [facility] Comment on above: Performed By: #### A1C #### [facility] [address] [place] [address] Dr. Sam Balderrama WBC 2-5 Abnormal NONE SEEN [facility] Comment on above: Performed By: #### A1C #### [facility] [address] [place] [address] Dr. Sam Balderrama XR CHEST 1 Von 01-04-2022 XR CHEST 1 V XR CHEST 1 V 01/05/20 5:56 PM EDT CLINICAL INDICATION: Nausea with vomiting COMPARISON: 12/26/2021 TECHNIQUE: Portable semiupright AP view of the chest. FINDINGS: There are no tubes or implants noted. The cardiomediastinal silhouette and pulmonary vasculature are within normal limits. Left middle lung zone calcified granuloma. No focal opacity concerning for consolidation. No pneumothorax or pleural effusion. Osseous structures demonstrate degenerative changes. Soft tissues are grossly unremarkable. IMPRESSION: No acute cardiopulmonary abnormality. Electronically authenticated by: CELIA WALTON Date: 2022-01-04 21:03 Normal [facility] BNPon 12-26-2021 Natriuretic peptide B (Bld) [Mass/Vol] 266.0 pg/mL Normal <=1,800.0 [facility] Comment on above: Performed By: #### BMP, HSTROPN, BNP ### # [facility] [address] [place] [address] Dr. Sam Balderrama CBC AUTO DIFFon 12-26-2021 BASO # 0.0 103/ul Normal 0.0-0.1 [facility] Comment on above: Performed By: #### CBC #### [facility] [address] [place] [address] Dr. Sam Balderrama Basophils/100 WBC (Bld) 0.4 % Normal 0.2-2.0 [facility] Comment on above: Performed By: #### CBC #### [facility] [address] [place] [address] Dr. Sam Balderrama EO # 0.0 103/ul Normal 0.0-0.7 [facility] Comment on above: Performed By: #### CBC #### [facility] [address] [place] [address] Dr. Sam Balderrama Eosinophils/100 WBC (Bld) 0.0 % Critically low 0.9-7.0 [facility] Comment on above: Performed By: #### CBC #### [facility] [address] [place] [address] Dr. Sam Balderrama Erythrocyte distribution width (RBC) [Ratio] 12.5 % Normal 11.0-15.0 [facility] Comment on above: Performed By: #### CBC #### [facility] [address] [place] [address] Dr. Sam Balderrama Hematocrit (Bld) [Volume fraction] 38.0 % Normal 36.0-48.0 [facility] Comment on above: Performed By: #### CBC #### [facility] [address] [place] [address] Dr. Sam Balderrama Hemoglobin (Bld) [Mass/Vol] 12.4 g/dL Normal 12.0-16.0 [facility] Comment on above: Performed By: #### CBC #### [facility] [address] [place] [address] Dr. Sam Balderrama IG # 0.03 10e3/ul Normal 0.00-0.03 [facility] Comment on above: Performed By: #### CBC #### [facility] [address] [place] [address] Dr. Sam Balderrama IG % 0.4 % Normal 0.0-0.5 [facility] Comment on above: Performed By: #### CBC #### [facility] [address] [place] [address] Dr. Sam Balderrama LYMPH # 0.8 103/ul Critically low 1.2-3.8 [facility] Comment on above: Performed By: #### CBC #### [facility] [address] [place] [address] Dr. Sam Balderrama Lymphocytes/100 WBC (Bld) 10.9 % Critically low 20.5-60.0 [facility] Comment on above: Performed By: #### CBC #### [facility] [address] [place] [address] Dr. Sam Balderrama MANUAL DIFF REQ NO Normal [facility] Comment on above: Performed By: #### CBC #### [facility] [address] [place] [address] Dr. Sam Balderrama MCH (RBC) [Entitic mass] 30.8 pg Normal 26.7-34.0 [facility] Comment on above: Performed By: #### CBC #### [facility] [address] [place] [address] Dr. Sam Balderrama MCHC (RBC) [Mass/Vol] 32.6 g/dL Normal 29.9-35.2 [facility] Comment on above: Performed By: #### CBC #### [facility] [address] [place] [address] Dr. Sam Balderrama MCV (RBC) [Entitic vol] 94.3 fL Normal 81.0-99.0 [facility] Comment on above: Performed By: #### CBC #### [facility] [address] [place] [address] Dr. Sam Balderrama MONO # 0.7 103/ul Normal 0.3-0.8 [facility] Comment on above: Performed By: #### CBC #### [facility] [address] [place] [address] Dr. Sam aBlderrama Monocytes/100 WBC (Bld) 9.6 % Normal 1.7-12.0 [facility] Comment on above: Performed By: #### CBC #### [facility] [address] [place] [address] Dr. Sam Balderrama NEUT # 5.5 103/ul Normal 1.4-6.5 [facility] Comment on above: Performed By: #### CBC #### [facility] [address] [place] [address] Dr. Sam Balderrama Neutrophils/100 WBC (Bld) 78.7 % Critically high 43.0-75.0 [facility] Comment on above: Performed By: #### CBC #### [facility] [address] [place] [address] Dr. Sam Balderrama Platelet mean volume (Bld) [Entitic vol] 10.2 fL Normal 9.5-13.5 [facility] Comment on above: Performed By: #### CBC #### [facility] [address] [place] [address] Dr. Sam Balderrama PLT 227 103/ul Normal 150-450 [facility] Comment on above: Performed By: #### CBC #### [facility] [address] [place] [address] Dr. Sam Balderrama RBC 4.03 106/ul Critically low 4.20-5.40 [facility] Comment on above: Performed By: #### CBC #### [facility] [address] [place] [address] Dr. Sam Balderrama WBC 7.0 103/ul Normal 4.0-11.0 [facility] Comment on above: Performed By: #### CBC #### [facility] [address] [place] [address] Dr. Sam Balderrama INFLUENZA A AND B AGon 12-26 INFLUANEGH SEE BELOW Normal [facility] Comment on above: Result Comment: Negative for Flu A prote in angiten. Infection due to Flu A cannot be ruled out. Flu A angiten in the sample may be below the detection limit of the test. Performed By: #### A 1C #### [facility] [address] [place] [address] Dr. Sam Balderrama INFLUBNEG SEE BELOW Normal [facility] Comment on above: Result Comment: Negative for Flu B prote in antigen. Infection due to Flu B cannot be ruled out. Flu B antigen in the sample may be below the detection limit of the test. Performed By: #### A 1C #### [facility] [address] [place] [address] Dr. Sam Balderrama INFLUENZA A AG Negative Normal NEGATIVE SEE COMMENT [facility] Comment on above: Performed By: #### A1C #### [facility] [address] [place] [address] Dr. Sam Balderrama INFLUENZA B AG Negative Normal NEGATIVE SEE COMMENT [facility] Comment on above: Performed By: #### A1C #### [facility] [address] [place] [address] Dr. Sam Balderrama INTERNAL CONTROLS Within Normal Limits Normal Within Normal Limits [facility] Comment on above: Performed By: #### A1C #### [facility] [address] [place] [address] Dr. Sam Balderrama PROF CHEM 8 (BAS METB)on Anion gap [Moles/Vol] 10.9 mmol/L Normal [facility] Comment on above: Performed By: #### BNP, CMP, LIPA #### [facility] [address] [place] [address] Dr. Sam Balderrama Calcium [Mass/Vol] 9.1 mg/dL Normal 8.5-10.1 [facility] Comment on above: Performed By: #### BNP, CMP, LIPA #### [facility] [address] [address] [address] Sam Balderrama Chloride [Moles/Vol] 102 mmol/L Normal 98-107 [facility] Comment on above: Performed By: #### BNP, CMP, LIPA #### [facility] [address] [address] [address] Sam Balderrama CO2 [Moles/Vol] 29.5 mmol/L Normal 21.0-32.0 [facility] Comment on above: Performed By: #### BNP, CMP, LIPA #### [facility] [address] [address] [address] Sam Balderrama Creatinine [Mass/Vol] 0.99 mg/dL Normal 0.55-1.02 [facility] Comment on above: Performed By: #### BNP, CMP, LIPA #### [facility] [address] [place] [address] Dr. Sam Balderrama EGFR-AF BELIZEAN >60 Normal >=60 [facility] Comment on above: Performed By: #### BNP, CMP, LIPA #### [facility] [address] [address] [address] Sam Balderrama EGFR-NON AF BELIZEAN 54 mL/min/1.73m2 Critically low >=60 [facility] Comment on above: Performed By: #### BNP, CMP, LIPA #### [facility] [address] [address] [address] Sam Balderrama Glucose [Mass/Vol] 193 mg/dL Critically high 74-106 [facility] Comment on above: Performed By: #### BNP, CMP, LIPA #### [facility] [address] [address] [address] Sam Balderrama Potassium [Moles/Vol] 3.4 mmol/L Critically low 3.5-5.1 [facility] Comment on above: Performed By: #### BNP, CMP, LIPA #### [facility] [address] [address] [address] Sam Balderrama Sodium [Moles/Vol] 139 mmol/L Normal 136-145 [facility] Comment on above: Performed By: #### BNP, CMP, LIPA #### [facility] [address] [place], [place] [address] Dr. Sam Balderrama Urea nitrogen [Mass/Vol] 15.0 mg/dL Normal 7.0-18.0 [facility] Comment on above: Performed By: #### BNP, CMP, LIPA #### [facility] [address] [place], [place] [address] Dr. Sam Balderrama Urea nitrogen/Creatin ine [Mass ratio] 15.2 mg/mg Normal [facility] Comment on above: Performed By: #### BNP, CMP, LIPA #### [facility] [address] [place] [address] [address] Sam Balderrama TROPONIN, HIGH SENSITIVITYon 12-26-2021 HSTROP 11.1 pg/mL Normal 4.0-51.3 [facility] Comment on above: Result Comment: CUT-OFF POINTS HAVE BEEN ESTABLISHED BASED ON THE FOURTH UNIVERSAL DEFINITIONS OF MYOCARDIAL INFARCTION. THE UPPER REFERENCE LIMIT (URL) OF TROPONIN, DEFINED THE 99TH PERCENTILE OF cTnI DISTRIBUTION IN A REFERENCE POPULATION, HAS BEEN CONFIRMED THE DECISION THRESHOLD FOR VT DIAGNOSIS. Performed By: #### B SENIOR CONSUMER INSIGHTS CONSULTANT, CMP, LIPA #### [facility] [address] [place] [address] [address] Sam Balderrama XR CHEST 1 Von 12-26-2021 XR CHEST 1 V EXAM: XR CHEST 1 V HISTORY: SHORTNESS OF BREATH EXAM: XR CHEST 1 V INDICATION: 76 years old Female SHORTNESS OF BREATH COMPARISON: None. FINDINGS: The cardiac silhouette is normal. There is no pulmonary edema. The lungs are clear. There is no pneumonia. There is no pneumothorax. There is no abnormal foreign body. IMPRESSION: There is no acute abnormality. Electronically authenticated by: JAZZ MASON Date: 2021-12-26 16:51 Normal [facility] Covid-19 PCR (CVDTBH)on 12-09 SARS-CoV-2 (COVID-19) RNA MANNY+probe Ql (Unsp spec) Detected Critically abnormal NOT DETECTED [facility] Comment on above: Result Comment: This test is not yet john roved or cleared by the [place] FDA. When there are no FDA-approved or cleared tests available, and other criteria are met, FDA can make tests available under an emergency access mechanism called an Emergency Use Authorization (EUA). The EUA for this test is supported by the [place] of Health and Human Service's (HHS's) declaration that circumstances exist to justify the emergency use of in vitro diagnostics for the detection and/or diagnosis of the virus that causes COVID-19. This EUA will remain in effect (meaning this test can be used) for the duration of the COVID-19 declaration justifying emergency of IVDs, unless it is terminated or revoked by FDA (after which the test may no longer be used). Performed By: #### C [facility] #### [facility] [address] [place] [address] Dr. Sam Balderrama Discharge Summaryon 09-19-19 Discharge Summary MR#: [id number] [facility] Admitted: 09/15/2017 Discharged: 09/18/2017 Date of : 1945 Physician: Krunal Dougherty M.D. DISCHARGE SUMMARYPRIMARY DIAGNOSIS: Non-ST elevation myocardial infarction, diagnosed bytakotsubo cardiomyopathy.SECONDARY DIAGNOSES:1. Hypertension.2. Hyperlipidemia.3. Hypothyroidism.HOSPITAL COURSE: A 72-year-old female patient with past medical history ofhypertension, hyperlipidemia, hypothyroidism, presents to the emergencydepartment with chest pain. The patient said that the pain startedsuddenly, substernal, pressure-like the patient's troponinswere found to be elevated at 1.7 and she had T-wave inversion. Therefore,the patient was taken to the pharmaceutical laboratory technician the next day. Her pharmaceutical laboratory technician showednonobstructive coronary angiograms. The left main artery was fine. LAD wasangiographically normal as well. Circumflex did not show any obstruction aswell as right coronary artery showed 40% stenosis. Therefore, decision wasmade to treat the patient medically. An echocardiogram was taken and showeda reduced ejection fraction of 30% to 40% with some regional wallabnormalities. This was attributed to takotsubo cardiomyopathy andtherefore, the decision was made to treat the patient medically with afollowup appointment in the clinic with , so he can followher up with a followup echocardiogram.DISCHARGE MEDICATIONS:1. Vitamin D 1000 units oral daily.2. Levothyroxine 75 mcg oral daily.3. Omeprazole 20 mg oral daily.4. Aspirin 81 mg daily.5. Atorvastatin 40 mg daily.6. Lisinopril 10 mg oral daily.7. Metoprolol succinate 25 mg oral daily.8. medication lisinopril/hydrochlorothiazide.9 . Clonidine was stopped as well.Electronically Signed by:Krunal Dougherty M.D. 09/20/2017 10:36 A Krunal Dougherty M.D. I have reviewed this discharge summary and confirmed the resident'sdocumentation. Please note that there may be additional documentation fromme. Date Dict: 09/18/2017/02:27 P/KRISTAN Barrettate Trans: 09/19/2017 11:34 A/Amparo_JN:[id number]: Ruiz Yee D.O. [address] [place] [phone] [place] [facility] POC GLUCOSE LABon 09-18-2017 Glucose mass conc 181 mg/dL High 70-100 [facility] Comment on above: Performed By: #### [id number], [address], [id number] # ###[address] Cardiovascular Lab Reporton 09-17-[address] [facility] Patient Name: Ariadna Copeland [facility] MR #: [id number] Physician: Micki BroDepartment of M.D.Medicine Service Date: 09/16/2017Division of Birthdate: 1945ardiology Room #: 3AB [id number] CardiovascularServicesJoseph [place] [address]Phone Fax Cardiovascular Laboratory ReportFINAL IMPRESSION:Normal epicardial coronary arteries.INDICATION: Ariadna Copeland is a 72-year-old female, who was admitted with features ofacute coronary syndrome. She was considered for an urgent heartcatheterization.PROCEDURE: Coronary angiography from right ulnar access.RECOMMENDATION:The patient should undergo an Echocardiogram to evaluate for LV systolicfunction. Continue medical therapy for risk factor modification.METHODS:After risks, benefits, and alternatives were explained to the patient, shewas brought to catheterization lab in a fasting state. Right wrist wasdraped and prepped in usual sterile fashion. We were unable to access theright radial artery. Then, under ultrasound, we accessed the right ulnarartery, which seem to be large in caliber as compared to the right radialartery. Then a slender sheath was placed and then we used 5-Saudi Arabian JR5,JL3.5, JL4, ultimate an XB LT 3.5-Saudi Arabian guide to engage the left coronaryostium. We were able to engage with 4-Saudi Arabian JL4 angiography wasperformed. After that, we wanted to place a pigtail across the aorticvalve. We were unable and after multiple attempts, this was abandoned andpigtail catheter was removed out and hemostasis was obtained by applicationof TR band. There were no complications during the procedure. She hadreceived heparin during the procedure.HEMODYNAMIC DATA: AO is 124, 53 (84).TOTAL FLUORO TIME: 22.60 minutes.TOTAL CONTRAST: 70 mL.AIR KERMA: 0.7 Gy.CORONARY ANGIOGRAPHY:1. Left main: This is a moderate-sized vessel bifurcates in LAD and circumflex. Left main is angiographically normal.2. LAD. This is angiographically normal. It gives rise to 2 diagonal branches, which are angiographically normal.3. The circumflex gives rise to 2 moderate-sized obtuse marginal branches, which are angiographically normal. The distal circumflex itself is small.4. Right coronary artery: This has a large and dominant demonstrates an ostial 40% stenosis, but no damping with 5-Saudi Arabian catheters. This is the dominant vessel.Electronically Signed by:Micki Bro M.D. 09/23/2017 12:56 P Micki Bro M.D.Date Dict: 09/16/2017/10:16 Lucero Bro M.D.Date Trans: 09/17/2017 07:11 Ira/Amparo_JN:[id number]: Ruiz Yee D.O. [address] [place] [id number] Normal [facility] POC GLUCOSE LABon 09-17-2017 Glucose mass conc 210 mg/dL High 70-100 [facility] Comment on above: Performed By: #### 29367, 41610, 47230 # ###[facility] [place] [address], [facility] Glucose mass conc 128 mg/dL High 70-100 [facility] Comment on above: Performed By: #### 49727, 16751, 18750 # ###[facility] [place] [place] [address], [facility] Glucose mass conc 193 mg/dL High 70-100 [facility] Comment on above: Performed By: #### 12320, 40566, 27728 # ###[facility] [facility] [place] [place] [address], [facility] Glucose mass conc 162 mg/dL High 70-100 [facility] Comment on above: Performed By: #### 49570, 10016, 63373 # ###[facility] [place] [address], [facility] BASIC METABOLIC PANELon Calcium 9.5 mg/dL Normal 8.6-10.3 [facility] Comment on above: Order Comment: No: Do not add to previou s draw Performed By: #### 0 0071, 42630, 84858 ####[facility] [facility] [place] [place] [address], [facility] Chloride 101 mmol/L Normal 98-107 [facility] Comment on above: Order Comment: No: Do not add to previou s draw Performed By: #### 0 0071, 38268, 74845 ####[facility] [place] [address], [facility] CO2 28 mmol/L Normal 21-31 [facility] Comment on above: Order Comment: No: Do not add to previou s draw Performed By: #### 0 0071, 74526, 20126 ####[facility] [place] [address], [facility] Creatinine 1.04 mg/dL Normal 0.60-1.20 [facility] Comment on above: Order Comment: No: Do not add to previou s draw Performed By: #### 0 0071, 83881, 20014 ####[facility] [facility] eGFR (black) mL/min/{1.73_m2} Normal >60 [facility] Comment on above: Order Comment: No: Do not add to previou s draw Result Comment: Calc ulation may not be valid for patients over 70 years Performed By: #### 0 0071, 98475, 13580 ####[facility] [facility] [place] [address], [facility] eGFR (non-black) 52 ml/min/1.73sq m Abnormal >60 [facility] Comment on above: Order Comment: No: Do not add to previou s draw Result Comment: Calc ulation may not be valid for patients over 70 years Performed By: #### 0 0071, 06409, 43655 ####[facility] [place] [address], [facility] Glucose mass conc 215 mg/dL High 70-100 [facility] Comment on above: Order Comment: No: Do not add to previou s draw Performed By: #### 0 0071, 15704, 26159 ####[facility] Potassium molar conc 4.3 mmol/L Normal 3.5-5.1 [facility] Comment on above: Order Comment: No: Do not add to previou s draw Performed By: #### 0 0071, 30907, 43815 ####[facility] Sodium 138 mmol/L Normal 136-145 [facility] Comment on above: Order Comment: No: Do not add to previou s draw Performed By: #### 0 0071, 84566, 00071 ####[facility] Urea nitrogen 20 mg/dL Normal 7-25 [facility] Comment on above: Order Comment: No: Do not add to previou s draw Performed By: #### 0 0071, 19117, 36437 ####[facility] CBC COMPLETE BLOOD COUNTon 0 - Erythrocyte distribution width Auto Ratio (RBC) 12.8 % Normal 11.5-15.0 [facility] Comment on above: Order Comment: No: Do not add to previou s draw Performed By: #### 5 0608 ####[facility] [place] [address], [facility] Erythrocytes (RBC) 3.71 10*6/uL Low 3.80-5.00 [facility] Comment on above: Order Comment: No: Do not add to previou s draw Performed By: #### 5 0608 ####[facility] [place] [address], [facility] Erythrocytes (RBC) 0 % Normal 0-0 [facility] Comment on above: Order Comment: No: Do not add to previou s draw Performed By: #### 5 0608 ####[facility] Hematocrit (HCT) 34.1 % Low 36.0-45.0 [facility] Comment on above: Order Comment: No: Do not add to previou s draw Performed By: #### 5 0608 ####[facility] Hemoglobin mass conc (Bld) 11.6 g/dL Low 12.0-15.0 [facility] Comment on above: Order Comment: No: Do not add to previou s draw Performed By: #### 5 0608 ####[facility] MCH 31.3 pg Normal 27.0-33.0 [facility] Comment on above: Order Comment: No: Do not add to previou s draw Performed By: #### 5 0608 ####[facility] MCHC mass conc (RBC) 34.0 g/dL Normal 32.0-35.0 [facility] Comment on above: Order Comment: No: Do not add to previou s draw Performed By: #### 5 0608 ####[facility] MCV 91.9 fL Normal 82.0-98.0 [facility] Comment on above: Order Comment: No: Do not add to previou s draw Performed By: #### 5 0608 ####[facility] PLAT CNT 245 10*3/uL Normal 150-400 [facility] Comment on above: Order Comment: No: Do not add to previou s draw Performed By: #### 5 0608 ####[facility] WBC (Leukocytes) 10.8 10*3/uL High 4.0-10.6 [facility] Comment on above: Order Comment: No: Do not add to previou s draw Performed By: #### 5 0608 ####[facility] HEMOGLOBIN A1Con 09-16-2017 Glucose mass conc 189 mg/dL High 70-126 [facility] Comment on above: Order Comment: Yes: Add to Previous draw if abledraw with UFH at 3am per RN NadaSS Performed By: #### 0 0071, 43412, 43716 ####[facility] Hemoglobin A1c/Hemoglobin.t otal mass fraction (Bld) 8.2 % High 4.0-6.0 [facility] Comment on above: Order Comment: Yes: Add to Previous draw if abledraw with UFH at 3am per RN NadaSS Performed By: #### 0 0071, 22273, 37304 ####[facility] History and Physicalon 09-16 History and Physical [id number] Admitted: 09/15/2017 Date of : 1945 Attending Physician: JESSICA Ramirez MD Room #: 3AB [id number] Discharge Date: HISTORY AND PHYSICALCHIEF COMPLAINT: Chest pain.HISTORY OF PRESENT ILLNESS: This is a 72-year-old female with past medicalhistory of hypertension, hyperlipidemia, and hypothyroidism who presentedto emergency department today with chest pain. The patient reported thather pain started suddenly, substernal, pressure type or pressure in nature,8/10 on a scale, radiating to her jaw, start at 4 p.m. and continued to beuntil she reached the emergency department at 8 o'clock. EMS given her 4baby aspirin. At that time, she reached the emergency department. EKG wasdone, laboratory included troponin was sent. The initial EKG showednonspecific T-wave inversion with 1-lead ST elevation in V2. Troponin cameback 1.7. The patient reported that her chest pain calmed down with thenitroglycerin to 3/10 on a scale. The patient in the emergency departmentwas started on nitro drip and heparin drip. Cardiology on-call was called.Case was discussed with the cotton dispatcher who recommended to continueon heparin and nitro drip, repeat troponin every 6 hours. During theinterview, the patient is complaining of chest pain while she was talking.Also during the interview, cardiac monitor technician showed the patient had multiplePVCs. cotton dispatcher was called and updated about the new update. Thepatient denied any cardiac cath before. She had stress test in 2016, whichwas negative. The patient has history of hypertension and she is takinglisinopril, hydrochlorothiazide. Also, the patient has history ofhypothyroidism and she is taking levothyroxine 75 mcg. Also, the patienthas history of hyperlipidemia and she is on atorvastatin 10 mg. Thepatient initially reported that she has allergy to NSAIDs, but she wasgiven 4 baby aspirin without any complications and she tolerated that. Thepatient denied any shortness of breath. She denied any lightheaded orpalpitations.REVIEW OF SYSTEMS: No headache initially, but told that it started aftershe started on nitro drip. No neck pain. No fatigue. No loss ofappetite. No vision or hearing loss. No weakness or numbness. Noswelling in the legs or edema. No skin rash. No abdominal pain. Nonausea. No vomiting, but she mentioned that she had an episode of nauseawhen the pain started, after that resolved. No increase in frequency orurgency in urination.PAST MEDICAL HISTORY: History of hypertension, history of hyperlipidemia,and history of hypothyroidism, history of GERD.PAST SURGICAL HISTORY: Cholecystectomy and hysterectomy.ALLERGIES: The patient is allergic to NSAIDs, Naprosyn, oxycodone,Claritin, amoxicillin, Prilosec despite she is tolerating the Augmentin,fexofenadine.MEDICATIO NS: Atorvastatin 10 mg, vitamin D supplement daily, clonidine 0.1mg, levothyroxine 75 mcg, lisinopril with hydrochlorothiazide , [id number] mg daily.SOCIAL HISTORY: The patient denies smoking, alcohol, or drug abuse.FAMILY HISTORY: Not significant family history to coronary arterydisease.PHYSICAL EXAMINATION: VITAL SIGNS: Temperature 98.7, heart rate 83,respiratory rate 16, blood pressure 140/66.GENERAL: The patient was awake, alert, oriented x3, in no acute distress.HEAD: Normocephalic, atraumatic.NECK: Supple, nontender.LUNGS: Clear to auscultation bilaterally. No wheezing. No crackles.Good effort.CARDIOVASCULAR: Regular rhythm and rate. No murmurs. No JVD. Normal S1,S2. No pitting swelling in the legs, edema.EXTREMITIES: No swelling or edema.NEUROLOGIC: The patient was moving all extremities without any focalneurological deficits.SKIN: No rash or erythema.ABDOMEN: Soft, nontender, nondistended. No organomegaly.LABORATORY: INR 1.01. White blood cells 10.4, hemoglobin 12.9, ossigrfjk615. Troponin 1.87. Glucose 199, creatinine 1.17, potassium 3.5.ASSESSMENT:1. Chest pain, most likely due to mso-SW-zwtzsmitk myocardial infarction.2. Hwr-XN-vcpwogrwz myocardial infarction.3. Essential hypertension.4. Hyperglycemia, rule out diabetes at this point.5. History of hyperlipidemia.6. History of hypothyroidism .PLAN: Case was discussed with Cardiology who recommended starting nitrodrip and heparin. The patient was given 4 baby aspirin during EMS. Thepatient will be admitted to the CCU Service. We will repeat troponin after6 hours. We will repeat the EKG if the patient complaining of worseningchest pain. The patient will be on telemetry. For hypertension, thepatient will continue on lisinopril. We will hold her hydrochlorothiazide.We will start the patient on IV fluids 75 mL/hour. cardiac catheterizationin the morning. The patient will be n.p.o. after midnight for furtherpossible cardiac catheterization in the morning. For hyperglycemia, wewill check hemoglobin A1c. We will continue on sliding scale insulin. Forhyperlipidemia, we will continue on atorvastatin 40 mg.Electronically Signed by:JESSICA Ramirez MD 09/16/2017 04:13 A __MHD Jania Ramirez KRISTANate Dict: 09/15/2017/11:08 P/MHD KRISTAN Jefferyate Trans: 09/15/2017 11:49 P/mmoDN_JN:[id number] Normal [facility] MAGNESIUM BLOODon 09-16-2017 Magnesium 2.0 mg/dL Normal 1.9-2.7 [facility] Comment on above: Order Comment: No: Do not add to previou s draw Performed By: #### 0 0071, 22295, 89033 ####[facility] [place] [address], [facility] PHOSPHORUS BLOODon 8 Phosphate 3.8 mg/dL Normal 2.5-5.0 [facility] Comment on above: Order Comment: No: Do not add to previou s draw Performed By: #### 4 1000, 65603, 03906, 54298 ####[facility] [place] [address], [place] POC GLUCOSE LABon 09-16-2017 Glucose mass conc 236 mg/dL High 70-100 [facility] Comment on above: Performed By: #### 35583, 97590, 41145 # ###[facility] [place] [address], [place] Glucose mass conc 140 mg/dL High 70-100 [facility] Comment on above: Performed By: #### 80030, 23356, 84682 # ###[facility] [place] [address], [place] Glucose mass conc 156 mg/dL High 70-100 [facility] Comment on above: Performed By: #### 28260, 87750, 85281 # ###[facility] [place] [address], [place] Glucose mass conc 152 mg/dL High 70-100 [facility] Comment on above: Performed By: #### 01368, 68420, 24581 # ###[facility] [facility].[address] PROTHROMBIN TIMEon 8 INR Coag RelTime (PPP) 1.07 {INR} Normal 0.91-1.16 [facility] Comment on above: Result Comment: [facility] RECOMMENDED INR FO R WARFARIN THERAPY CONDITION INRPROPHYLAXIS OF VENOUS THROMBOSIS 2-3(HIGH-RISK SURGERY)TREATMENT OF VENOUS THROMBOSIS 2-3TREATMENT OF PULMONARY EMBOLISM 2-3PREVENTION OF SYSTEMIC EMBOLISM: 2-3 ACUTE MYOCARDIAL INFARCTION TISSUE HEART VALVES VALVULAR HEART DISEASE ATRIAL FIBRILLATION RECURRENT SYSTEMIC EMBOLISMMECHANICAL HEART VALVE 2.5-3.5 FROM: ORAL ANTICOAGULANTS. MECHANISM OF ACTION, CLINICALEFFECTIVENESS, AND OPTIMAL THERAPEUTIC RANGE. [id number]. Performed By: #### 0 0071, 34869, 65742 ####[facility] Prothrombin time (PT) Coag time (PPP) 13.9 s Normal 12.3-14.8 [facility] Comment on above: Result Comment: ALL RESULTS MUST BE INTE RPRETED WITH RESPECT TO BLOOD DRAWING ARTIFACTOR DILUTION ERROR OF ANTICOAGULANT AT THE TIME OF SAMPLING. Performed By: #### 0 0071, 52364, 02471 ####[facility] TROPONIN-Ion 09-16-2017 Troponin I.cardiac mass conc 1.75 ng/mL Critically high 0.00-0.04 [facility] Comment on above: Result Comment: REFERENCE RANGES: 0.00 - 0.04 ng/ml NORMAL 0.05 - 0.50 ng/ml INDETERMINATE > 0.50 ng/ml CONSISTENT WITH AN M.I. Performed By: #### 0 0071, 44108, 06745 ####[facility] [facility].[address] UFH HEPARIN ASSAYon 09-16-19 18 UNFRACTIONATED HEPARIN 0.39 IU/mL Normal 0.30-0.70 [facility] Comment on above: Result Comment: Rivaroxaban and Apixaban will interfere with the anti Xa assay used tomonitor UFH and LMWH. Performed By: #### 0 0071, 23155, 45641 ####[facility] [facility].[address] UNFRACTIONATED HEPARIN 0.52 IU/mL Normal 0.30-0.70 [facility] Comment on above: Result Comment: Rivaroxaban and Apixaban will interfere with the anti Xa assay used tomonitor UFH and LMWH. Performed By: #### 0 0071, 85827, 40109 ####[facility] [facility].[address] APTTon 09-15-2017 aPTT 30.5 s Normal 25.0-35.0 The [facility] Comment on above: Result Comment: ALL RESULTS MUST BE INTE RPRETED WITH RESPECT TO BLOOD DRAWING ARTIFACTOR DILUTION ERROR OF ANTICOAGULANT AT THE TIME OF SAMPLING.THE APTT SHOULD NOT BE USED TO MONITOR UNFRACTIONATED HEPARIN THERAPY, THIS LABORATORY NO LONGER HAS AN ESTABLISHED THERAPEUTIC RANGE BASEDON THE APTT. IT IS RECOMMENDED THAT THE UFH - HEPARIN ASSAY (ANTI-XAACTIVITY) BE USED FOR THIS PURPOSE. Performed By: #### 5 7307, 74230, 02798 ####[facility]3000 [facility].[address] BASIC METABOLIC PANELon Calcium 9.8 mg/dL Normal 8.6-10.3 [facility] Comment on above: Performed By: #### 08566, 54316, 56639 # ###[facility] [place] [address], [facility] Chloride 99 mmol/L Normal 98-107 [facility] Comment on above: Performed By: #### 61604, 87548, 66962 # ###[facility] [place] [address], [facility] CO2 28 mmol/L Normal 21-31 [facility] Comment on above: Performed By: #### 80859, 31837, 15234 # ###[facility] [facility] [place] [place] [address], [facility] Creatinine 1.17 mg/dL Normal 0.60-1.20 [facility] Comment on above: Performed By: #### 76742, 15782, 78907 # ###[facility] [facility] [place] [address], [facility] eGFR (black) 55 ml/min/1.73sq m Abnormal >60 [facility] Comment on above: Result Comment: Calculation may not be v alid for patients over 70 years Performed By: #### 0 0071, 09261, 39903 ####[facility] [facility] [place] [address], [facility] eGFR (non-black) 45 ml/min/1.73sq m Abnormal >60 [facility] Comment on above: Result Comment: Calculation may not be v alid for patients over 70 years Performed By: #### 0 0071, 89583, 45951 ####[facility] [place] [address], [facility] Glucose mass conc 199 mg/dL High 70-100 [facility] Comment on above: Performed By: #### 05796, 51130, 32148 # ###[facility] Potassium molar conc 3.5 mmol/L Normal 3.5-5.1 [facility] Comment on above: Performed By: #### 52246, 34819, 54146 # ###[facility]3000 [facility].[address] Sodium 138 mmol/L Normal 136-145 [facility] Comment on above: Performed By: #### 99341, 22712, 59311 # ###[facility]3000 [facility].[address] Urea nitrogen 21 mg/dL Normal 7-25 [facility] Comment on above: Performed By: #### 71668, 53057, 00452 # ###[place] [address] [facility].[address] CBC W/DIFFon 09-15-2017 ABS BASOPHILS 0.1 10*3/uL Normal 0.0-0.2 [facility] Comment on above: Performed By: #### 86029 ####[facility]3000 [facility].[address] ABS IMM GRANS 0.1 10*3/uL Normal 0.0-0.2 [facility] Comment on above: Performed By: #### 70673 ####[place] [address] Basophils Auto #/vol (Bld) 0.5 % Normal 0.0-1.0 [facility] Comment on above: Performed By: #### 21112 ####[facility]3000 [facility].[address] Eosinophils 0.1 10*3/uL Normal 0.0-0.5 [facility] Comment on above: Performed By: #### 50521 ####[place] [address] [facility].[address] Eosinophils/100 leukocytes 1.1 % Normal 0.0-6.0 [facility] Comment on above: Performed By: #### 42524 ####[facility] Erythrocyte distribution width Auto Ratio (RBC) 12.6 % Normal 11.5-15.0 [facility] Comment on above: Performed By: #### 51367 ####[facility] Erythrocytes (RBC) 4.18 10*6/uL Normal 3.80-5.00 [facility] Comment on above: Performed By: #### 53251 ####[address] Erythrocytes (RBC) 0 % Normal 0-0 [facility] Comment on above: Performed By: #### 09342 ####[address] Hematocrit (HCT) 38.3 % Normal 36.0-45.0 [facility] Comment on above: Performed By: #### 09603 ####[address] Hemoglobin mass conc (Bld) 12.9 g/dL Normal 12.0-15.0 [facility] Comment on above: Performed By: #### 62043 ####[place] [address] IMMATURE GRANS 1.0 % Normal 0.0-1.0 [facility] Comment on above: Performed By: #### 47863 ####[place] [address] Lymphocytes 1.9 10*3/uL Normal 1.2-4.0 [facility] Comment on above: Performed By: #### 33622 ####[address] [place] [address], [facility] Lymphocytes/100 leukocytes 18.7 % Low 20.0-45.0 [facility] Comment on above: Performed By: #### 84610 ####[facility]3000 [facility].[address] MCH 30.9 pg Normal 27.0-33.0 [facility] Comment on above: Performed By: #### 37927 ####[facility] MCHC mass conc (RBC) 33.7 g/dL Normal 32.0-35.0 [facility] Comment on above: Performed By: #### 09491 ####[facility] MCV 91.6 fL Normal 82.0-98.0 [facility] Comment on above: Performed By: #### 81517 ####[facility] [place] [address], [facility] Monocytes 0.6 10*3/uL Normal 0.1-1.0 [facility] Comment on above: Performed By: #### 37758 ####[facility] MONOS 6.0 % Normal 5.0-12.0 [facility] Comment on above: Performed By: #### 90709 ####[facility] [place] [address], [facility] Neutrophils 7.5 10*3/uL Normal 1.6-7.6 [facility] Comment on above: Performed By: #### 35051 ####[facility] [place] [address], [facility] Neutrophils/100 leukocytes 72.7 % High 40.0-72.0 [facility] Comment on above: Performed By: #### 79343 ####[facility] [place] [address], [facility] PLAT CNT 265 10*3/uL Normal 150-400 [facility] Comment on above: Performed By: #### 45273 ####[facility] [place] [address], [facility] WBC (Leukocytes) 10.4 10*3/uL Normal 4.0-10.6 [facility] Comment on above: Performed By: #### 43129 ####[facility] LIPID PROFILEon 09-15-2017 Cholesterol 176 mg/dL Normal 120-200 [facility] Comment on above: Result Comment: CHOLESTEROL REFERENCE RA NGE:20 YEARS AND OLDER CARDIOVASCULAR RISKLess than 200 mg/dl Low Jsov957 to 239 mg/dl Borderline Xmap194 mg/dl and greater High Risk Performed By: #### 0 0071, 03952, 67094 ####[facility] Cholesterol to HDL Ratio 3.0 {ratio} Normal .0-4.5 [facility] Comment on above: Performed By: #### 65065, 90993, 13765 # ###[facility] HDL Cholesterol 59 mg/dL Normal 23-92 [facility] Comment on above: Result Comment: Slight variation in norm al range could be due to gender and/or age.HDL CHOLESTEROL REFERENCE RANGE:20 years and older Cardiovascular Risk> or =60 mg/dL [id number] TO 59 mg/dL Low Risk<40 mg/dL High Risk Performed By: #### 0 0071, 93575, 72160 ####[facility] [place] [address], [facility] LDL Cholesterol 73 mg/dL Normal 0-130 [facility] Comment on above: Result Comment: LDL IS A CALCULATIONLDL IS ONLY VALID IF THE TRIG IS LESS THAN 400. Performed By: #### 0 0071, 08203, 94305 ####[place] [address] NON-HDL CHOLESTEROL 117 mg/dL Normal [facility] Comment on above: Performed By: #### 01267, 36767, 29359 # ###[place] [address] Triglyceride 219 mg/dL High 40-149 [facility] Comment on above: Result Comment: TRIGLYCERIDE REFERENCE R RAAD:20 YEARS AND OLDER CARDIOVASCULAR RISKLESS THAN 150 mg/dl LOW [id number] TO 199 mg/dl BORDERLINE ZDAT899 mg/dl AND GREATER HIGH RISK Performed By: #### 0 0071, 39816, 20876 ####[place] [address] VLDL CHOL 44 mg/dL High 0-40 [facility] Comment on above: Performed By: #### 07412, 51021, 15651 # ###[address] PORTABLE CHEST 1 VIEWon PORTABLE CHEST 1 VIEW [facility] [address] [place] [address] Patient Name: ARIADNA COPELAND : 1945Sex: FAge: Race: WhiteMRN: [id number]. Location: EMERPatient Status: IVisit #: [id number] Date: 09/15/2017 8:15:00 PMCompleted Date: 09/15/2017 08:23 PMRequesting Provider: MICKEY YU Attending Provider: MICKEY YU Report Copy To: Signs & Symptoms: Chest PainHistory: Patient history not availableComments: R/O PneumoniaExam: PORTABLE CHEST 1 VIEWAccession #: [id number] PORTABLE CHEST 1 VIEW 09/15/2017 8:23 PM EST SIGNS AND SYMPTOMS: Chest Pain TECHNOLOGIST COMMENTS: Chest pain and vomiting. QUESTION FOR THE RADIOLOGIST: R/O Pneumonia PROTOCOL: AP(PA) view was obtained. COMPARISON: None FINDINGS: Trachea is midline. Cardiomediastinal silhouette within normal limits. Lungs are clear with no focal airspace disease. No pleural effusion or pneumothorax. No free air under diaphragm. Metallic clip in the right upper quadrant likely from prior gallbladder surgery. IMPRESSION: No radiographic evidence of acute cardiopulmonary process. Approved by:Walker Barnard on 09/16/2017 8:34 AM EST. I, Neeru Lane, have reviewed the images and report and concur with these findings. Electronically signed by:Neeru Lane. Transcribed by: [email or web address], User Resident: WALKER BARNARDElectronically Signed by: NEERU LANE @ 09/16/2017 10:35 AMI personally read this/these film(s) with this resident Normal [facility] Comment on above: Order Comment: R/O Pneumonia PROTHROMBIN TIMEon 8 INR Coag RelTime (PPP) 1.01 {INR} Normal 0.91-1.16 [facility] Comment on above: Result Comment: ACCCP RECOMMENDED INR FO R WARFARIN THERAPY CONDITION INRPROPHYLAXIS OF VENOUS THROMBOSIS 2-3(HIGH-RISK SURGERY)TREATMENT OF VENOUS THROMBOSIS 2-3TREATMENT OF PULMONARY EMBOLISM 2-3PREVENTION OF SYSTEMIC EMBOLISM: 2-3 ACUTE MYOCARDIAL INFARCTION TISSUE HEART VALVES VALVULAR HEART DISEASE ATRIAL FIBRILLATION RECURRENT SYSTEMIC EMBOLISMMECHANICAL HEART VALVE 2.5-3.5 FROM: ORAL ANTICOAGULANTS. MECHANISM OF ACTION, CLINICALEFFECTIVENESS, AND OPTIMAL THERAPEUTIC RANGE. [id number];108:231S-246S. Performed By: #### 5 7307, 48458, 93018 ####[facility] Prothrombin time (PT) Coag time (PPP) 13.3 s Normal 12.3-14.8 [facility] Comment on above: Result Comment: ALL RESULTS MUST BE INTE RPRETED WITH RESPECT TO BLOOD DRAWING ARTIFACTOR DILUTION ERROR OF ANTICOAGULANT AT THE TIME OF SAMPLING. Performed By: #### 5 7307, 67693, 68435 ####[facility] TROPONIN-Ion 09-15-2017 Troponin I.cardiac mass conc 1.87 ng/mL Critically high 0.00-0.04 [facility] Comment on above: Result Comment: M-CRITICAL RESULT(S) REV IEWED, CALLED TO AND READ BACK [facility]REFERENCE RANGES: 0.00 - 0.04 ng/ml NORMAL 0.05 - 0.50 ng/ml INDETERMINATE > 0.50 ng/ml CONSISTENT WITH AN M.I. Performed By: #### 0 0071, 25746, 33572 ####[facility] UFH HEPARIN ASSAYon 09-15-19 18 UNFRACTIONATED HEPARIN <0.10 Critically low 0.30-0.70 [facility] Comment on above: Result Comment: Rivaroxaban and Apixaban will interfere with the anti Xa assay used tomonitor UFH and LMWH.RESULTS CHECKED AND CALLED. ACCURATELY READ BACK BY SANTIAGO STOLL RN @[id number] Performed By: #### 5 7307, 87126, 62496 ####[facility] Vital Signs Date Time Vital Sign Value Performing Clinician Facility 09-02-2023 08:56-0500 Diastolic blood pressure 62 mm[Hg] [facility] 09-02-2023 08:56-0500 Heart rate 72 /min [facility]Frod[facility] 09-02-2023 08:56-0500 Systolic blood pressure 136 mm[Hg] [facility] 06-30-2023 09:30-0500 Body height 162.56 cm [facility] [employer] Other [facility] Other 06-30-2023 09:30-0500 Body mass index (BMI) [Ratio] 24.34 kg/m2 [employer] Other [facility] Other 06-30-2023 09:30-0500 Body weight 64.32 kg [employer] Other [facility] Other 06-30-2023 09:30-0500 Diastolic blood pressure 72 mm[Hg] [employer] Other [facility] Other 06-30-2023 09:30-0500 Respiratory rate 12 /min [employer] Other [facility] Other 06-30-2023 09:30-0500 Systolic blood pressure 160 mm[Hg] [employer] Other [facility] Other 03-27-2023 09:00-0400 Body height 162.56 cm Ruiz Ball Other [facility] Other 03-27-2023 09:00-0400 Body mass index (BMI) [Ratio] 25.09 kg/m2 Ruiz Ball Other [facility] Other 03-27-2023 09:00-0400 Body weight 66.32 kg Ruiz Ball Other [facility] Other 03-27-2023 09:00-0400 Diastolic blood pressure 62 mm[Hg] Ruiz Ball Other [facility] Other 03-27-2023 09:00-0400 Respiratory rate 12 /min Ruiz Ball Other [facility] Other 03-27-2023 09:00-0400 Systolic blood pressure 150 mm[Hg] Ruiz Ball Other [facility] Other 02-24-2023 11:30-0400 Body height 162.56 cm Ruiz Ball Other [facility] Other 02-24-2023 11:30-0400 Body mass index (BMI) [Ratio] 25.09 kg/m2 Ruiz Ball Other [facility] Other 02-24-2023 11:30-0400 Body weight 66.32 kg Ruiz Ball Other [facility] Other 02-24-2023 11:30-0400 Diastolic blood pressure 74 mm[Hg] Ruiz Ball Other [facility] Other 02-24-2023 11:30-0400 Respiratory rate 12 /min Ruiz Ball Other [facility] Other 02-24-2023 11:30-0400 Systolic blood pressure 173 mm[Hg] Ruiz Ball Other [facility] Other 12-19-2022 10:00-0400 Body height 162.56 cm Ruiz Ball Other [facility] Other 12-19-2022 10:00-0400 Body mass index (BMI) [Ratio] 25.5 kg/m2 Ruiz Ball Other [facility] Other 12-19-2022 10:00-0400 Body weight 67.4 kg Ruiz Ball Other [facility] Other 12-19-2022 10:00-0400 Diastolic blood pressure 71 mm[Hg] Ruiz Ball Other [facility] Other 12-19-2022 10:00-0400 Respiratory rate 12 /min Ruiz Ball Other [facility] Other 12-19-2022 10:00-0400 Systolic blood pressure 133 mm[Hg] Ruiz Ball Other [facility] Other 09-18-2022 10:00-0500 Body height 162.56 cm Ruiz Ball Other [facility] Other 09-18-2022 10:00-0500 Body mass index (BMI) [Ratio] 25.47 kg/m2 Ruiz Ball Other [facility] Other 09-18-2022 10:00-0500 Body weight 67.31 kg Ruiz Ball Other [facility] Other 09-18-2022 10:00-0500 Diastolic blood pressure 70 mm[Hg] Ruiz Ball Other [facility] Other 09-18-2022 10:00-0500 Respiratory rate 12 /min Ruiz Yee Other [facility] Other 09-18-2022 10:00-0500 Systolic blood pressure 130 mm[Hg] Ruiz Yee Other [facility] Other Encounters Encounter Date Encounter Type Care Provider Facility Start: 09-15-2023 End: 09-15-2023 ambulatory Ruiz Yee Other [facility] Other Start: 09-15-2023 Telephone encounter Ruiz Yee [facility] Start: 09-02-2023 ambulatory Andry MCHUGH Facility :[facility] Start: 09-02-2023 End: 09-02-2023 Patient encounter procedure Andry MCHUGH [facility] Start: 08-25-2023 End: 08-25-2023 ambulatory CHEIKH LOWERY Not Available Start: 07-21-2023 End: 07-21-2023 ambulatory Ruiz Yee Other [facility] Other Start: 07-21-2023 Telephone encounter Ruiz Yee [facility] Start: 06-30-2023 End: 06-30-2023 ambulatory Ruiz Yee Other [facility] Other Start: 06-30-2023 Office outpatient vi sit 25 minutes Ruiz Ball [facility] Start: 06-24-2023 End: 06-24-2023 ambulatory Ruiz Zachariah Other [facility] Other Start: 06-24-2023 Office outpatient vi sit 15 minutes Ruiz Ball [facility] Start: 06-23-2023 End: 06-23-2023 ambulatory CHEIKH LOWERY Not Available Start: 03-31-2023 End: 03-31-2023 ambulatory Ruiz Yee Other [facility] Other Start: 03-31-2023 Telephone encounter Ruiz Yee [facility] Start: 03-27-2023 End: 03-27-2023 ambulatory Ruiz Yee Other [facility] Other Start: 03-27-2023 Patient encounter procedure Ruiz Yee [facility] Start: 03-25-2023 End: 03-25-2023 ambulatory Ruiz Yee Other [facility] Other Start: 03-25-2023 Telephone encounter Ruiz Yee [facility] Start: 03-24-2023 End: 03-24-2023 ambulatory Ruiz Yee Other [facility] Other Start: 03-24-2023 Telephone encounter Ruiz Yee [facility] Start: 03-13-2023 End: 03-13-2023 ambulatory Ruiz Yee Other [facility] Other Start: 03-13-2023 Telephone encounter Ruiz Yee [facility] Start: 03-11-2023 End: 03-11-2023 ambulatory Ruiz Yee Other [facility] Other Start: 03-11-2023 Telephone encounter Ruiz Yee [facility] Start: 02-26-2023 End: 02-26-2023 ambulatory Ruiz Yee Other [facility] Other Start: 02-26-2023 Telephone encounter Ruiz Ball [facility] Start: 02-24-2023 End: 02-24-2023 ambulatory Ruiz Zachariah Other [facility] Other Start: 02-24-2023 Office outpatient vi sit 15 minutes Ruiz Yee [facility] Start: 02-24-2023 Telephone encounter Ruiz Yee [facility] Start: 02-10-2023 End: 02-11-2023 ambulatory Andry MCHUGH Facility:[facility] Start: 02-10-2023 End: 02-10-2023 Patient encounter procedure Andry MCHUGH [facility] Start: 02-04-2023 End: 02-04-2023 ambulatory Ruiz Yee Other [facility] Other Start: 02-04-2023 Telephone encounter Ruiz Yee [facility] Start: 01-28-2023 End: 01-28-2023 ambulatory Ruiz Yee Other [facility] Other Start: 01-28-2023 Telephone encounter Ruiz Zachariah [facility] Start: 01-22-2023 ambulatory Andry MCHUGH Facility:[facility] Start: 01-17-2023 End: 01-18-2023 ambulatory Kailee Hoy Facility:CD:[id number] Start: 12-19-2022 End: 12-19-2022 ambulatory Ruiz Yee Other [facility] Other Start: 12-19-2022 Office outpatient vi sit 25 minutes Ruiz Yee [facility] Start: 11-11-2022 End: 11-12-[address] RUIZ YEE Facility:[facility] Start: 10-15-2022 End: 10-15-2022 ambulatory Ruiz Yee Other [facility] Other Start: 10-15-2022 Office outpatient vi sit 15 minutes Ruiz Yee [facility] Start: 09-18-2022 End: 09-18-2022 ambulatory Ruiz Yee Other [facility] Other Start: 09-18-2022 Office outpatient vi sit 25 minutes Ruiz Yee [facility] Start: 03-20-2022 End: 03-21-[address] RUIZ YEE Facility:[facility] Start: 03-07-2022 Adult health examination Ruiz Yee Other [facility] Other Start: 02-27-2022 End: 02-27-[address] RUIZ YEE Facility:[facility] Start: 01-11-[address] RUIZ YEE Facili ty:[facility] Start: 01-05-2022 End: 01-07-[address] KAILEE COX . Facility:[facility] Start: 12-26-2021 End: 12-26-[address] ISHAN LYON . Facility:[facility] Start: 12-25-2021 End: 12-25-[address] RUIZ YEE Facility:[facility] Start: 12-16-2017 End: 12-17-2017 Ambulatory DEFAULT PHYSICIAN Facility:[facility] Start: 09-15-2017 End: 09-18-2017 Evaluation and management of inpatient REFERRED SELF Facility:[facility] Procedures Date Procedure Procedure Detail Performing Clinician Start: 12-25-2020 Depression screening Be kristal Yee Other Start: 12-25-2017 Screening for osteoporosis Ruiz Yee Other Start: 09-16-2017 FLUOROSCOPY OF MULT COR ART USING L OSM CONTRAST MICKI BRO Start: 09-16-2017 INTRODUCE OTH THERAP SUBST IN PERIPH VEIN, PERC SAMER J SORAYA Start: 09-16-2017 MEASURE OF CARDIAC S AMPL \T\ PRESSURE, L HEART, PERC APPROACH MICKI BRO Start: 11-28-2015 Screening for malign ant neoplasm of colon Ruiz Yee Other Start: 11-22-2015 Screening mammography B enjakirsten Yee Other Screening for malign ant neoplasm of breast Ruiz Yee Other Screening for malign ant neoplasm of breast Ruiz Yee Other Immunizations Immunization Date Immunization Notes Care Provider James herrera 06-30-2023 influenza, high dose seasonal, preservative-free Ruiz Yee Other [facility] Other 08-11-2022 influenza virus vaccine, unspecified formulation Andry MCHUGH [facility] 07-08-2022 SARS-CoV-2 (COVID-19 ) [id number] Andry MCHUGH [facility] 05-08-2022 influenza, high dose seasonal, preservative-free Ruiz Yee Other [facility] Other 05-06-2022 influenza virus vaccine, split virus (incl. purified surface antigen) Ruiz Yee Other [facility] Other 05-06-2022 influenza virus vaccine, unspecified formulation Andry MCHUGH [facility] 07-02-2021 SARS-CoV-2 (COVID-19 ) mRNA BNT-162b2 vax Andry [employer] [facility] 04-27-2021 influenza virus vaccine, split virus (incl. purified surface antigen) Ruiz Yee Other [facility] Other 09-28-2020 SARS-CoV-2 (COVID-19 ) mRNA BNT-162b2 vax Andry [employer] [facility] Comment on above: Result Comment: 2023: [id number] 09-07-2020 SARS-CoV-2 (COVID-19 ) mRNA BNT-162b2 vax Andry [employer] [facility] Comment on above: Result Comment: 2023: [id number] 05-04-2020 influenza virus vaccine, split virus (incl. purified surface antigen) Ruiz Yee Other [facility] Other 04-30-2019 influenza virus vaccine, unspecified formulation Andry MCHUGH [facility] 04-24-2018 influenza virus vaccine, split virus (incl. purified surface antigen) Ruiz Yee Other [facility] Other 04-24-2018 influenza virus vaccine, unspecified formulation Andry [employer] [facility] 04-17-2017 influenza virus vaccine, split virus (incl. purified surface antigen) Ruiz Yee Other [facility] Other 04-17-2017 influenza virus vaccine, unspecified formulation Andry [employer] [facility] 05-10-2016 influenza virus vaccine, split virus (incl. purified surface antigen) Ruiz Yee Other [facility] Other 05-10-2016 influenza virus vaccine, unspecified formulation [employer] [facility] 06-13-2015 tetanus and diphther ia toxoids, adsorbed, preservative free, for adult use (5 Lf of tetanus toxoid and 2 Lf of diphtheria toxoid) Ruiz Zachariah Other [facility] Other 03-28-2015 pneumococcal conjuga te vaccine, 13 valent Ruiz Yee Other [facility] Other 03-28-2015 pneumococcal Conjuga te, unspecified formulation; Translations: [Need for prophylactic vaccination against Streptococcus pneumoniae (pneumococcus)] Ruiz Yee Other [facility] Other 11-05-2014 pneumococcal conjuga te vaccine, 13 valent Andry [employer] [facility] 06-07-2014 influenza virus vaccine, split virus (incl. purified surface antigen) Ruiz Yee Other [facility] Other 06-07-2013 tetanus and diphther ia toxoids, adsorbed, preservative free, for adult use (5 Lf of tetanus toxoid and 2 Lf of diphtheria toxoid) Ruiz Yee Other [facility] Other 05-24-2009 pneumococcal polysaccharide vaccine, 23 valent Ruiz Yee Other [facility] Other Payers Date Payer Category Payer Medicare [id number] 2.1 [id number] 1961 Unknown [id number] 2.16.84 [id number] 1943 Unknown [id number] 2.16.84 0.1.800395.3.579.2.593 1943 Unknown [id number] 2.16.84 0.1.308843.3.579.2.593 1943 Unknown [id number] 2.16.84 0.1.896726.3.579.2.593 1943 Unknown [id number] 2.16.84 0.1.853414.3.579.2.593 1943 Unknown [id number] 2.16.84 0.1.990998.3.579.2.593 1943 Unknown [id number] 2.16.84 0.1.029316.3.579.2.593 1943 Unknown [id number] 2.16.84 0.1.873988.3.579.2.593 1943 Unknown [id number] 2.16.8 40.1.173999.3.579.2.727 1943 Unknown [id number] 2.16.8 40.1.538478.3.579.2.727 1943 Unknown [id number] 2.16.8 40.1.582737.3.579.2.727 1943 Unknown [id number] 2.16.8 40.1.644846.3.579.2.727 1943 Unknown [id number] 2.16.84 0.1.402001.3.579.2.1259 1943 Unknown [id number] 2.16.840. 1.976917.3.579.2.1259 Medicare [id number] Unknown Social History Date Type Detail Facility Sex Assigned At [facility] Tobacco smoking status No Smoking Status Entered [facility] Functional Status Date Assessment Result Facility 09-02-2023 Functional Status N/A [facility] 02-10-2023 Functional Status N/A [facility] Clinical Notes 09-18-2022 to 09-15-2023 Note Date & Type Note Facility 09-15-2023 Evaluation note Encounter Date Diagnosis Assessment Notes Sep, Primary hypertension (ICD-10 - I10) Sep, ASHD (arteriosclerotic heart disease) (ICD-10 - I25.10) Sep, Autoimmune thyroiditis (ICD-10 - E06.3) Sep, Hyperlipidemia type II (ICD-10 - E78.01) Sep, Controlled type 2 diabetes mellitus with hyperglycemia, without long-term current use of insulin (ICD-10 - E11.65) [facility] 01-23-2024 Hospital Discharge instructions Patient Education 09/02/2023 09:40:00 Dietary Guidelines to Help Prevent Kidney Stones Dietary Guidelines to Help Prevent Kidney Stones Kidney stones are deposits of minerals and salts that form inside your kidneys. Your risk of developing kidney stones may be greater depending on your diet, your lifestyle, the medicines you take, and whether you have certain medical conditions. Most people can lower their risks of developing kidney stones by following these dietary guidelines. Your dietitian may give you more specific instructions depending on your overall health and the type of kidney stones you tend to develop. What are tips for following this plan? Reading food labels Choose foods with no salt added or low-salt labels. Limit your salt (sodium) intake to less than 1,500 mg a day. Choose foods with calcium for each meal and snack. Try to eat about 300 mg of calcium at each meal.Foods that contain 200 500 mg of calcium a serving include: ?8 oz (237 mL) of milk, apjxver-ietujdovhxbh-bmyyx milk, and calcium- fortifiedfruit juice. Calcium-fortified means that calcium has been added to these drinks. ?8 oz (237 mL) of kefir, yogurt, and soy yogurt. ?4 oz (114 g) of tofu. ?1 oz (28 g) of cheese. ?1 cup (150 g) of dried figs. ?1 cup (91 g) of cooked broccoli. ?One 3 oz (85 g) can of sardines or mackerel. Most people need 1,000 1,500 mg of calcium a day. Talk to your dietitian about how much calcium is recommended for you. Shopping Buy plenty of fresh fruits and vegetables. Most people do not need to avoid fruits and vegetables, even if these foods contain nutrients that may contribute to kidney stones. When shopping for convenience foods, choose: ?Whole pieces of fruit. ?Pre-made salads with dressing on the side. ?Low-fat fruit and yogurt smoothies. Avoid buying frozen meals or prepared deli foods. These can be high in sodium. Look for foods with live cultures, such as yogurt and kefir. Choose high-fiber grains, such as whole-wheat breads, oat bran, and wheat cereals. Cooking Do not add salt to food when cooking. Place a salt shaker on the table and allow each person to addtheir own salt to taste. Use vegetable protein, such as beans, textured vegetable protein (TVP), or tofu, instead of meat inpasta, casseroles, and soups. Meal planning Eat less salt, if told by your dietitian. To do this: ?Avoid eating processed or pre-made food. ?Avoid eating fast food. Eat less animal protein, including cheese, meat, poultry, or fish, if told by your dietitian. To dothis: ?Limit the number of times you have meat, poultry, fish, or cheese each week. Eat a diet free of meat at least 2 days a week. ?Eat only one serving each day of meat, poultry, fish, or seafood. ?When you prepare animal proteins, cut pieces into small portion sizes. For most meat and fish, oneserving is about the size of the palm of your hand. Eat at least five servings of fresh fruits and vegetables each day. To do this: ?Keep fruits and vegetables on hand for snacks. ?Eat one piece of fruit or a handful of berries with breakfast. ?Have a salad and fruit at lunch. ?Have two kinds of vegetables at dinner. You may be told to limit foods that are high in a substance called oxalate. These include: ?Spinach (cooked), rhubarb, beets, sweet potatoes, and Guatemalan chard. ?Peanuts. ?Potato chips, belgian fries, and baked potatoes with skin on. ?Nuts and nut products. ?Chocolate. If you regularly take a diuretic medicine, make sure to eat at least 1 or 2 servings of fruits or vegetables that are high in potassium each day. These include: ?Avocado. ?Banana. ?Early, prune, carrot, or tomato juice. ?Baked potato. ?Cabbage. ?Beans and split peas. Lifestyle Drink enough fluid to keep your urine pale yellow. This is the most important thing you can do. Spread your fluid intake throughout the day. If you drink alcohol: ?Limit how much you have to: ?0 1 drink a day for women who are not . ?0 2 drinks a day for men. ?Know how much alcohol is in your drink. In the [place] one drink equals one 12 oz bottle of beer (355 mL), one 5 oz glass of wine (148 mL), or one 1 oz glass of hard liquor (44 mL). Lose weight if told by your health care provider. Work with your dietitian to find an eating plan and weight loss strategies that work best for you. General information Talk to your health care provider and dietitian about taking daily supplements. Depending on your health and the cause of your kidney stones, you may be told: ?Do not take high-dose supplements of vitamin C (1,000 mg a day or more). ?To take a calcium supplement. ?To take a daily probiotic supplement. ?To take other supplements such as magnesium, fish oil, or vitamin B6. Take jcye-ckf-mcpjyqi and prescription medicines only as told by your health care provider. These include supplements. What foods should I limit? Limit your intake of the following foods, or eat them as told by your dietitian. Vegetables Spinach. Rhubarb. Beets. Canned vegetables. Pickles. Olives. Baked potatoes with skin. Grains Wheat bran. Baked goods. Salted crackers. Cereals high in sugar. Meats and other proteins Nuts. Nut butters. Large portions of meat, poultry, or fish. Salted, precooked, or cured meats, such as sausages, meat loaves, and hot dogs. Dairy Cheeses. Beverages Regular soft drinks. Regular vegetable juice. Seasonings and condiments Seasoning blends with salt. Salad dressings. Soy sauce. Ketchup. Barbecue sauce. Other foods Canned soups. Canned pasta sauce. Casseroles. Pizza. Lasagna. Frozen meals. Potato chips. [place] fries. The items listed above may not be a complete list of foods and beverages you should limit. Contact a dietitian for more information. What foods should I avoid? Talk to your dietitian about specific foods you should avoid based on the type of kidney stones youhave and your overall health. Fruits Grapefruit. The item listed above may not be a complete list of foods and beverages you should avoid. Contact adietitian for more information. Summary Kidney stones are deposits of minerals and salts that form inside your kidneys. You can lower your risk of kidney stones by making changes to your diet. The most important thing you can do is drink enough fluid. Drink enough fluid to keep your urine pale yellow. Talk to your dietitian about how much calcium you should have each day, and eat less salt and animal protein as told by your dietitian. This information is not intended to replace advice given to you by your health care provider. Make sure you discuss any questions you have with your health care provider. Document Revised: 11/07/2022 Document Reviewed: 11/07/2022 [employer] Patient Education 2022 [employer]. Follow Up Care 06/30/2023 13:02:17 With:JEISON HEARN, Andry Carcamo, URL Address: [address] [address]- When:Within 1 Year(s) Comments:w/DANIAL [facility] [phone] Evaluation note* Encounter Date Diagnosis Assessment Notes Treatment Notes Treatment Clinical Notes Jun, ASHD (arteriosclerotic heart disease) (ICD-10 - I25.10) This patient is stable without activity related CP, dyspnea or lightheadedness. They are instructed to continue exercise and AHA diet plan. Continue secondary prevention measures. Jun, Controlled type 2 diabetes mellitus with hyperglycemia, without long-term current use of insulin (ICD-10 - E11.65) This patient is following a comprehensive diabetic treatment plan. They are checking their feet daily for calluses and nonhealing ulcers. They are being seen for yearly dilated eye examinations. Goals: SBP less than 130, LDL less than 100, FBS less than 140, A1C less than 7%. They are checking their BS daily, will which are reviewed at the office visit. Continue regular routine monitoring of A1C,] Microalbumin, Dilated eye exam and Foot exam Jun, Primary hypertension (ICD-10 - I10) This patient is instructed to consume a healthy, low-fat, low-salt diet. They are also encouraged to continue exercise to achieve/maintain a normal BMI. Jun, COVID-19 (ICD-10 - U07.1) asymptomatic, day 8/10 and still contagious, wearing mask. Self isolate at home. - Cannot work - avoid contact with others - avoid pets - wipe counters, door knobs if touched - if can't avoid leaving home, must wear mask to protect others - need to stay isolated for 10 days from onset of symptoms - to discontinue isolation must be 5 days AND must be without fever for 24 hours AND symptoms must be improving. Always wear a mask in public places for complete 10 days Jun, Hyperlipidemia type II (ICD-10 - E78.01) Instructed on diet and exercise with continued statin therapy.Discussed the beneficial effects of lowering cholesterol in reducing the risk for cerebrovascular and cardiovascular disease. 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 TSH mildly suppressed, no change recommended at this time Jun, Other specified hypothyroidism (ICD-10 - E03.8) Jun, Gastroesophageal reflux disease with esophagitis without hemorrhage (ICD-10 - K21.00) Diet instructions: Smaller portions, avoid eating and laying flat, avoid eating or drinking prior to bedtime. Weight loss. [facility] Other 11-14-2023 Evaluation note* Encounter Date Diagnosis Assessment Notes Treatment Notes Treatment Clinical Notes Jun, COVID-19 (ICD-10 - U07.1) Self isolate at home. - Cannot work - avoid contact with others - avoid pets - wipe counters, door knobs if touched - if can't avoid leaving home, must wear mask to protect others - need to stay isolated for 10 days from onset of symptoms - to discontinue isolation must be 5 days AND must be without fever for 24 hours AND symptoms must be improving. Always wear a mask in public places for complete 10 days Jun, ASHD (arterioscleroti c heart disease) (ICD-10 - I25.10) Increases risk for complications She is undervaccinated and at increased risk for prolonged illness Jun, IFG (impaired fasting glucose) (ICD-10 - R73.01) Increases risk for complications She is undervaccinated and at increased risk for prolonged illness [facility] Other 08-21-2023 Evaluation note* Encounter Date Diagnosis Assessment Notes Treatment Notes Treatment Clinical Notes Mar, Controlled type 2 diabetes mellitus with hyperglycemia, without long-term current use of insulin (ICD-10 - E11.65) [facility] Other 08-17-2023 Evaluation note* Encounter Date Diagnosis Assessment Notes Treatment Notes Treatment Clinical Notes Mar, Medicare annual wellness visit, subsequent (ICD-10 - Z00.00) Personalized health advice was given to the beneficiary including a written plan for screenings discussed and provided. Advanced care planning reviewed and/or information given as requested. Additional counseling was provided here today in regards to, [ ]. The above visit was performed by [ ], under direct supervision of [ ]. Document reviewed and amended by provider signed below. Mar, ASHD (arteriosclerotic heart disease) (ICD-10 - I25.10) This patient is stable without activity related CP, dyspnea or lightheadedness. They are instructed to continue exercise and AHA diet plan. Continue secondary prevention measures Mar, Primary hypertension (ICD-10 - I10) This patient is instructed to consume a healthy, low-fat, low-salt diet. They are also encouraged to continue exercise to achieve/maintain a normal BMI. Mar, Hyperlipidemia type II (ICD-10 - E78.01) Instructed on diet and exercise with continued statin therapy.Discussed the beneficial effects of lowering cholesterol in reducing the risk for cerebrovascular and cardiovascular disease. Mar, Controlled type 2 diabetes mellitus with hyperglycemia, without long-term current use of insulin (ICD-10 - E11.65) This patient is following a comprehensive diabetic treatment plan. They are checking their feet daily for calluses and nonhealing ulcers. They are being seen for yearly dilated eye examinations. Goals: SBP less than 130, LDL less than 100, FBS less than 140, AC and A1C less than 7%. They are checking their BS daily, will which are reviewed at the office visit. Continue regular routine monitoring of A1C,] Microalbumin, Dilated eye exam and Foot exam Mar, Autoimmune thyroiditis (ICD-10 - E06.3) Suppressed TSH, monitor for now since no symptoms of hyperthyroid Mar, Other specified hypothyroidism (ICD-10 - E03.8) Mar, Gastroesophageal reflux disease with esophagitis without hemorrhage (ICD-10 - K21.00) Diet instructions: Smaller portions, avoid eating and laying flat, avoid eating or drinking prior to bedtime. Weight loss. Mar, Screening mammogram for breast cancer (ICD-10 - Z12.31) Instructed on monthly SBE and yearly mammogram [facility] Other 07-17-2023 Evaluation note* Encounter Date Diagnosis Assessment Notes Treatment Notes Treatment Clinical Notes Feb, Superficial abscess of perineum (ICD-10 - L02.215) Warm soaks daily Keep area clean and dry Begin antibiotics. REcheck in 5 days Feb, Controlled type 2 diabetes mellitus with hyperglycemia, without long-term current use of insulin (ICD-10 - E11.65) INcreases risk for prolonged, serious infection. [facility] Other 07-06-2023 Note [id number]:[address] [place] [address] 02-13-2023 [id number]:127[facility]07-03-2023 NoteCystoscopy with Stent Removal ? Voiding after the procedure: there may be some pain, burning, urgency, frequency and blood tingedurine following the procedure. These symptoms usually resolve within 2-5 days. Drink the amount of fluid it takes to keep the urine pink to yellow or clear in color. Drinking enough water and fluids will help to ease any discomfort after your procedure. ? If you are having problems that seem out of the ordinary, please call. ? If unable to contact your physician and you feel it is an emergency, go to the nearest emergency room or call 911 ? Diet ? you may resume your normal diet. ? Activity ? you may resume your normal activities ? Call if you have a fever over 100 degrees.[facility] 02-10-2023 Hospital Discharge instructions Patient Education 02/10/2023 14:32:39 [facility] - Cystoscopy with Stent Removal Discharge Instructions (Custom) Cystoscopy with Stent Removal Voiding after the procedure: there may be some pain, burning, urgency, frequency and blood tinged urine following the procedure. These symptoms usually resolve within 2-5 days. Drink the amount of fluid it takes to keep the urine pink to yellow or clear in color. Drinking enough water and fluids will help to ease any discomfort after your procedure. If you are having problems that seem out of the ordinary, please call. If unable to contact your physician and you feel it is an emergency, go to the nearest emergency room or call 911 Diet you may resume your normal diet. Activity you may resume your normal activities Call if you have a fever over 100 degrees. Follow Up Care 01/22/2023 09:52:05 With:Andry MCHUGH Address: [address] [id number] [facility] (1) When:6 months Comments:Call for followup appointment in about six months with an abdominal X- ray prior to your visit (my office needs to send an order for this study)I will get records from the [facility] to see what the CAT scan demonstrated in terms of whether or not you have more stones in your kidneys. This may change the follow-up date depending on findings.Have a great day! 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 They are checking their feet daily for calluses and nonhealing ulcers. They are being seen for yearly dilated eye examinations. Goals: SBP less than 130, LDL less than 100, FBS less than 140, AC and A1C less than 7%. They are checking their BS daily, will which are reviewed at the office visit. A1C: [ ] Microalbumin: [ ] Eye exam: [ ] Foot exam: [ ] December, ASHD (arteriosclerotic heart disease) (ICD-10 - I25.10) This patient is stable without activity related CP, dyspnea or lightheadedness. They are instructed to continue exercise and AHA diet plan. December, Hyperlipidemia type II (ICD-10 - E78.01) Instructed on diet and exercise with continued statin therapy.Discussed the beneficial effects of lowering cholesterol in reducing the risk for cerebrovascular and cardiovascular disease. December, Primary hypertension (ICD-10 - I10) This patient is instructed to consume a healthy, low-fat, low-salt diet. They are also encouraged to continue exercise to achieve/maintain a normal BMI. December, GRACIA (generalized anxiety disorder) (ICD-10 - F41.1) Healthy diet, keep active and exercise. Denies any panic episodes. December, Gastroesophageal reflux disease with esophagitis without hemorrhage (ICD-10 - K21.00) Diet instructions: Smaller portions, avoid eating and laying flat, avoid eating or drinking prior to bedtime. Weight loss. 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 Instructed to test for COVID and update office w/ results Oct, ASHD (arteriosclerotic heart disease) (ICD-10 - I25.10) This patient is stable without activity related CP, dyspnea or lightheadedness. They are instructed to continue exercise and AHA diet plan. [facility] Other 02-08-2023 Evaluation note* Encounter Date Diagnosis Assessment Notes Treatment Notes Treatment Clinical Notes Sep, ASHD (arteriosclerot ic heart disease) (ICD-10 - I25.10) This patient is stable without activity related CP, dyspnea or lightheadedness. They are instructed to continue exercise and AHA diet plan. Sep, Controlled type 2 diabetes mellitus with hyperglycemia, without long-term current use of insulin (ICD-10 - E11.65) This patient is following a comprehensive diabetic treatment plan. They are checking their feet daily for calluses and nonhealing ulcers. They are being seen for yearly dilated eye examinations. Goals: SBP less than 130, LDL less than 100, FBS less than 140, AC and A1C less than 7%. They are checking their BS daily, will which are reviewed at the office visit. Sep, Primary hypertension (ICD-10 - I10) This patient is instructed to consume a healthy, low-fat, low-salt diet. They are also encouraged to continue exercise to achieve/maintain a normal BMI. Sep, Hyperlipidemia type II (ICD-10 - E78.01) Diet and exercise with continued statin therapy. Sep, Gastroesophageal reflux disease with esophagitis without hemorrhage (ICD-10 - K21.00) Diet instructions: Smaller portions, avoid eating and laying flat, avoid eating or drinking prior to bedtime. Weight loss. 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) Euthyroid, TSH yearly w/ MWE [facility] Other Evaluation + Plan note No data available for this section [facility] Future Appointments Appointment Date:08/24/2024 09:45:00 AM Scheduled Provider:Andry MCHUGH MD Location:[facility], [facility]–1983 Appointment Type:URO Office Visit [facility] Evaluation noteNo [email or web address] Other [facility] general Narrative - Reported* Type Description Date Medical History Arthritis of left shoulder regio n Medical History Acquired autoimmune hypothyroidi sm Medical History Gastroesophageal ref lux disease with esophagitis without hemorrhage Medical History Hyperlipidemia type II Medical History Essential hypertension Medical History Controlled type 2 di abetes mellitus with hyperglycemia, without long-term current use of insulin Medical History ASHD (arteriosclerotic heart dis ease) Medical History COVID Medical History C. difficile diarrhea Medical History Menopause Medical History Tongue fissure Medical History Dry mouth Medical History Cystic thyroid nodule Medical History Family history of thyroid cancer Medical History Abdominal bruit Medical History Acute cystitis without hematuria Medical History GRACIA (generalized anxiety disorde r) Medical History Acute pharyngitis due to other s pecified organisms Medical History Acute abscess of maxillary sinus Surgical History RADHA 1974 Surgical History CHOLECYSTECTOMY 1974 Surgical History RIGHT BREAST HX 2001 Hospitalization History SEE SURGICAL HX [facility] Other [facility] general Narrative - Reported* Type Description Date Medical History Arthritis of left shoulder regio n Medical History Acquired autoimmune hypothyroidi sm Medical History Gastroesophageal ref lux disease with esophagitis without hemorrhage Medical History Hyperlipidemia type II Medical History Essential hypertension Medical History Controlled type 2 di abetes mellitus with hyperglycemia, without long-term current use of insulin Medical History ASHD (arteriosclerotic heart dis ease) Medical History COVID Medical History C. difficile diarrhea Medical History Menopause Medical History Tongue fissure Medical History Dry mouth Medical History Cystic thyroid nodule Medical History Family history of thyroid cancer Medical History Abdominal bruit Medical History Acute cystitis without hematuria Medical History GRACIA (generalized anxiety disorde r) Medical History Acute pharyngitis due to other s pecified organisms Medical History Acute abscess of maxillary sinus Surgical History RADHA 1974 Surgical History CHOLECYSTECTOMY 1974 Surgical History RIGHT BREAST HX 2001 Surgical History Right ureteral stone extraction /stent placement 01/2023 Hospitalization History SEE SURGICAL HX [employer] Other Progress note No data available for this section [facility] Summary Purpose Family History No Family History Records FoundNo Family History Records FoundNo Family History Records FoundNo Family History Records Found No data available for this section Advance Directives No Advanced Directives Records FoundNo Advanced Directives Records FoundNo Advanced Directives Records FoundNo Advanced Directives Records Found Additional Source Comments INFORMATION SOURCE (unrecogn ized section and content) DATE CREATED AUTHOR 01/29/2018 [facility] DATE CREATED AUTHOR AUTHOR'S ORGANIZ ATION 11/16/2022 [facility] DATE CREATED AUTHOR AUTHOR'S ORGANIZ ATION 07/01/2023 [facility] DATE CREATED AUTHOR AUTHOR'S ORGANIZ ATION 08/25/2023 [facility] EPIC REASON FOR VISIT (unrecogniz ed section and content) 3 month Follow upcongestion, cough3 month Follow upNo InformationNo Informationlump on bottomlump on buttocksantibioticdark green stoolRefillRefillLab ResultswellnessNo InformationCOVID Positive- [phone] month Follow upBP readingsrefills Patient Care team informatio n (unrecognized section and content) Personnel Name: RUIZ YEE DO Address: Address: [address] [place] [address] Personnel Name: RUIZ YEE DO Address: Address: [address] [place] [address] FOR RECORDS PERTAINING TO PATIENTS WHO ARE OR HAVE BEEN ENROLLED IN A CHEMICAL DEPENDENCY/SUBSTANCEABUSE PROGRAM, SOME INFORMATION MAY BE OMITTED. This clinical summary was aggregated from multiple sources. Caution should be exercised in using it in the provision of clinical care. This summary normalizes information from multiple sources, and as a consequence, information in this document may materially change the coding, format and clinical context of patient data. In addition, data may be omitted in some cases. CLINICAL DECISIONS SHOULD BE BASED ON THE PRIMARY CLINICAL RECORDS. [facility]. provides no warranty or guarantee of the accuracy or completeness of information in this document.
[2023-10-13 12:57] LABS: Estimated Average Glucose 154 mg/dL
== END 2023-10-13 11:43 | disposition home or self-care (01) ==
LOC: LAB 11:43
PROVIDERS: PCP Internal Medicine; Visit Provider Internal Medicine
DX: Z79.4 Long term (current) use of insulin (principal); E11.65 Type 2 diabetes mellitus with hyperglycemia
CPT/HCPCS: 36415; 83036

== ENCOUNTER 2024-04-21 08:50 | Outpatient (OUT) | payer MEDICARE, OTHER, SELFPAY ==
--- NOTE | 2024-04-21 09:03 | MM_ITS ---
Patient Name: PETER GLASS MR#: [id number] : 1945 Exam Date: 04/21/2024 Ordering Doctor: DR Ruiz Yee D.O. RADIOLOGY REPORT PROCEDURE: MM TOMOSYNTHESIS SCREENING BI COMPARISON: MG MAMM SCREEN 3D YAZMIN CAD, 03/20/2022. MM TOMOSYNTHESIS SCREENING BI, 03/24/2023. INDICATIONS: Screening Calculator Name NCI Breast Cancer Risk Assessment Tool 5 Year Breast Cancer Risk 4.40% Lifetime Breast Cancer Risk 6.70% Personal Breast Cancer No Personal Ovarian Cancer No Treatments None Family Cancers Mother with breast cancer at age 80. LOCATION: [facility] BREAST COMPOSITION: There are scattered areas of fibroglandular density. FINDINGS: DIAGNOSTIC CATEGORY 2--BENIGN FINDING. NO CHANGE FROM COMPARISON. Scattered benign-appearing nodules are present. Scattered benign-appearing calcifications are present. Scattered benign-appearing lymph nodes are present. RIGHT BREAST: No significant suspicious finding. Stable 1.3 cm well-circumscribed nodule upper outer quadrant. Linear scar markers. LEFT BREAST: No significant suspicious finding. RECOMMENDATIONS: ROUTINE MAMMOGRAM AND CLINICAL EVALUATION IN 12 MONTHS. PLEASE NOTE: A NORMAL MAMMOGRAM DOES NOT EXCLUDE THE POSSIBILITY OF BREAST CANCER. A CLINICALLY SUSPICIOUS PALPABLE LUMP SHOULD BE BIOPSIED. Dictated by: Alexander Herrera MD on 04/21/2024 at 10:07 Approved by: Alexander Herrera MD on 04/21/2024 at 10:09
--- NOTE | 2024-04-21 09:03 | US_ITS ---
The [address] [address] Patient Name: PETER GLASS MRN: [id number] date: 1945 Sex: F Assigned Patient Location: MAMMO Current Patient Location: MAMMO Accession/Order Number: [id number] Exam Date: 04/21/2024 09:30 Report Date: 04/21/2024 16:19 At the request of: HUGO SONI Procedure: US thyroid EXAMINATION: US thyroid HISTORY: Thyroid Nodule COMPARISON: No relevant comparison available. TECHNIQUE: Sonographic images of the thyroid gland were obtained. FINDINGS: The right thyroid lobe measures 4.9 x 1.3 x 1.1 cm. Single nodule. Nodule 1:1.2 x 0.7 x 0.7 cm. Mixed solid and cystic, hypoechoic, wide, smooth margins, no consultations. TR 3 The thyroid isthmus measures 2.2 mm. No focal nodule The left thyroid lobe is normal in size, contour and echotexture measuring 4.5 x 1.0 x 1.4 cm. US/US thyroid IMPRESSION: 1.2 cm right thyroid TR 3 nodule TI-RADS: The [employer] TI-RADS committee's white paper recommendations for thyroid lesions classified as TR3 (mildly suspicious) are listed below: > 1.5 cm. Follow-up ultrasound in 1, 3, and 5 years. > 2.5 cm. FNA. J. Am Seth Radiol 2017;14:[id number]. Electronically authenticated by: RICHARD HERNANDEZ Date: 04/21/2024 16:19
[2024-04-21 11:08] LABS: Basophils Absolute Auto 0.1 10^3/uL (0.0-0.1); Basophils Percent Auto 0.7 % (0.2-2.0); Eosinophils Absolute Auto 0.7 10^3/uL (0.0-0.7); Eosinophils Percent Auto 8.1 % (0.9-7.0); Hematocrit 39.9 % (36.0-48.0); Immature Granulocytes Abs Auto 0.06 10^3/uL (0.00-0.03); Immature Granulocytes Pct Auto 0.7 % (0.0-0.5); Lymphocytes Absolute Auto 3.1 10^3/uL (1.2-3.8); Lymphocytes Percent Auto 36.2 % (20.5-60.0); Mean Corpuscular HGB Conc 32.6 g/dL (29.9-35.2); Mean Corpuscular Hemoglobin 30.8 pg (26.7-34.0); Mean Corpuscular Volume 94.5 fL (81.0-99.0); Monocytes Absolute Auto 0.6 10^3/uL (0.3-0.8); Neutrophils Absolute Auto 4.1 10^3/uL (1.4-6.5); Neutrophils Percent Auto 47.3 % (43.0-75.0); Platelet Count 287 10^3/uL (150-450); Red Blood Count 4.22 10^6/uL (4.20-5.40); Red Cell Distribution Width 12.8 % (11.0-15.0); White Blood Count 8.6 10^3/uL (4.0-11.0)
[2024-04-21 11:15] LABS: Microalbumin Urine Random 4.6 mg/dL (<=30.0)
[2024-04-21 11:44] LABS: Alanine Aminotransferase 22 U/L (14-59); Albumin Globulin Ratio 1.2; Albumin Level 3.9 g/dL (3.4-5.0); Alkaline Phosphatase 75 U/L (46-116); Aspartate Amino Transferase 16 U/L (15-37); BUN Creatinine Ratio 25.6; Bilirubin Total 0.8 mg/dL (0.2-1.0); Calcium 9.6 mg/dL (8.5-10.1); Carbon Dioxide 30.5 mmol/L (21.0-32.0); Chloride 102 mmol/L (98-107); Chol HDL Ratio 1.8; Cholesterol 136 mg/dL (<=200); Estimated GFR (African America >60 (>=60); Estimated GFR (Non-African Ame >60 (>=60); Globulin 3.3 g/dL; Glucose 146 mg/dL (74-106); HDL Cholesterol 76 mg/dL (40-60); Potassium 3.5 mmol/L (3.5-5.1); Sodium 142 mmol/L (136-145); Thyroid Stimulating Hormone 0.505 uIU/mL (0.358-3.740); Total Protein 7.2 g/dL (6.4-8.2); Triglycerides 112 mg/dL (<=150); VLDL CHOLESTEROL 22.4 mg/dL
[2024-04-21 12:26] LABS: Estimated Average Glucose 151 mg/dL; Glycohemoglobin A1C 6.9 % (4.5-6.2)
== END 2024-04-21 08:51 | disposition home or self-care (01) ==
LOC: MAMMO 08:51
PROVIDERS: PCP Internal Medicine; Visit Provider Internal Medicine
DX: Z12.31 Encounter for screening mammogram for malignant neoplasm of breast (principal); E04.1 Nontoxic single thyroid nodule; E11.65 Type 2 diabetes mellitus with hyperglycemia; I25.10 Atherosclerotic heart disease of native coronary artery without angina pectoris; I10 Essential (primary) hypertension; E03.9 Hypothyroidism, unspecified; E78.01 Familial hypercholesterolemia; Z80.3 Family history of malignant neoplasm of breast
CPT/HCPCS: 36415; 76536; 77063; 77067; 80053; 80061; 82043; 83036; 84443; 85025

== ENCOUNTER 2024-08-23 10:36 | Outpatient (OUT) | payer MEDICARE, OTHER, SELFPAY ==
--- NOTE | 2024-08-23 10:52 | XR_ITS ---
The [address] [address] Patient Name: PETER GLASS MRN: [id number] date: 1945 Sex: F Assigned Patient Location: [facility] Current Patient Location: RAD Accession/Order Number: [id number] Exam Date: 08/23/2024 10:45 Report Date: 08/23/2024 13:47 At the request of: NICOLE MCHUGH Procedure: XR abdomen 1V EXAMINATION: XR abdomen 1V HISTORY: Kidney Stones COMPARISON: 08/20/2023 FINDINGS: KIDNEY/URETER - RIGHT: No visible renal or ureteral calcifications. KIDNEY/URETER - LEFT: No visible renal or ureteral calcifications. PELVIS: No visible ureteral calcifications. Any visible calcifications favor phleboliths. BOWEL: No abnormal dilation or deviation. BONES: No acute abnormality. Mild to moderate spondylosis with dextrocurvature. OTHER: Negative. No abnormal gaseous collections. XR/XR abdomen 1V IMPRESSION: No definite urinary tract calculi Electronically authenticated by: RICHARD HERNANDEZ Date: 08/23/2024 13:47
--- OUTSIDE RECORDS SUMMARY | 2024-08-23 10:54 | XMS_ITS | CCD ---
Author Organization [facility] Care Team Providers Care Living Nurse Name Role Phone SELF, REFERRED Unavailable Unavailable ZACHARIAH, RUIZ Unavailable Unavailable JACKI LIRA Unavailable Unavailable MARI KRUNAL Unavailable Unavailable MI Unavailable Unavailable MICKI BRO Unavailable Unavailable [place] Unavailable Unavailable CLYDE LIRAR J Unavailable Unavailable PHYSICIAN, DEFAULT Unavailable Unavailable PHYSICIAN, DEFAULT Unavailable Unavailable ZACHARIAH, RUIZ Unavailable Unavailable Zachariah Ruiz Unavailable LIGIA ., DR DUGAN Admitting Unavailable HOY ., DR DUGAN Attending Unavailable BALL, DR ARIAS Primary Care Unavailable SEBASTIÁN, DR LINDA Li Consulting Unavailable HOY ., DR DUGAN Consulting Unavailable PAY ., DR KLEIN Consulting Unavailable WALTON, CELIA Consulting Unavailable BALL, DR ARIAS Admitting Unavailable [...] OLMSTEAD Admitting Unavailable MASONJAZZ Cristobal Consulting Unavailable RUIZ YEE Primary Care Physician [phone] Andry MCHUGH Attending Unavailable Andry MCHUGH Attending Unavailable Andry MCHUGH Referring Unavailable Andry MCHUGH Admitting Unavailable Kailee Cox Referring Unavailable Andry MCHUGH Attending Unavailable Ruiz Yee MD Primary Care Provider CHEIKH BELL Attending Unavailable SHERITA CASTILLO Attending Unavailable CHEIKH BELL Attending Unavailable CHEIKH BELL Attending Unavailable CHEIKH BELL Attending Unavailable CHEIKH BELL Attending Unavailable CHEIKH BELL Attending Unavailable Allergies Allergy Classification Reported Allergen(s) Allergy Type Date of Onset Reaction(s) Facility (3 sources) amoxicillin; Translations: [amoxicillin] Drug Allergy 12-07-19 14 [facility] Repository (3 sources) amoxicillin / clavulanate; Translations: [Augmentin] Drug Allergy 02-21-20 13 [facility] Repository (3 sources) codeine; Translations: [codeine] Drug Allergy 02-21-20 13 [facility]OF [facility] Repository (2 sources) desonide Drug Allergy 12-07-19 14 [facility] Repository (8 sources) fexofenadine Drug Allergy 09-15-19 18 [facility] Repository (16 sources) loratadine; Translations: [Claritin] Drug Allergy 02-21-20 13 Unknown [facility] Repository (3 sources) naproxen; Translations: [Naprosyn] Drug Allergy 12-07-19 14 [facility] Repository (2 sources) NSAIDs Drug allergy (disorder) 02-14-20 13 [facility] Repository (3 sources) omeprazole; Translations: [PriLOSEC] Drug Allergy 02-21-20 13 [facility] Repository (8 sources) oxyCODONE Drug Allergy 02-21-20 13 [facility] Repository (20 sources) fexofenadine; Translations: [Beckie] Drug Allergy 12-07-19 14 Unknown (qualifier value) [facility] Repository (13 sources) Loratadine; Translations: [loratadine] Drug Allergy 01-07-20 24 Unknown (qualifier value) [facility] (20 sources) oxyCODONE Drug Allergy 06-28-20 24 Unknown [facility] Other (10 sources) Substance with penicillin structure and antibacterial mechanism of action (substance) Drug allergy Unknown [facility] Other (18 sources) PCN-200 Propensity to adverse reactions Unknown [facility] Other (2 sources) Bacitracin / Neomycin / Polymyxin B; Translations: [Neosporin] Drug Allergy 02-21-20 13 [facility] Repository (3 sources) Adhesive Tape; Translations: [Tape] Allergy to substance unknown [facility] (2 sources) Amoxicillin; Translations: [amoxicillin] Drug Allergy Unknown (qualifier value) [facility] (2 sources) Amoxicillin / Clavulanate; Translations: [amoxicillin-clav ulanate] Drug Allergy Unknown (qualifier value) [facility] (2 sources) bacitracin / neomycin / polymyxin b; Translations: [bacitracin/neomy abisai/polymyxin B topical] Drug Allergy Redness [facility] (5 sources) Codeine; Translations: [codeine] Drug Allergy 07-22-20 Unknown (qualifier value) [facility] (9 sources) Ibuprofen; Translations: [ibuprofen] Drug Allergy 04-10-20 Unknown (qualifier value) [facility] (10 sources) Naproxen; Translations: [naproxen] Drug Allergy 04-10-20 Unknown (qualifier value), Other, Unknown [facility] (5 sources) Non-steroidal anti-inflammatory agent; Translations: [NSAIDs] Drug allergy 06-28-20 Unknown [facility] Comment on above: swelling of lips (5 sources) Omeprazole; Translations: [omeprazole] Drug Allergy 07-22-20 Unknown (qualifier value) [facility] (10 sources) Acetaminophen / oxyCODONE Drug Allergy oxyCODONE-Acet aminophen [facility] Other (10 sources) Non-steroidal anti-inflammatory agent Drug allergy Unknown [facility] Other (10 sources) Penicillin Drug Allergy Unknown [facility] Other (2 sources) Beckie Allergy Drug allergy Unknown [facility] Other (2 sources) patient allergy list reviewed by nurse or physicia Propensity to adverse reactions 04-02-20 Comment:Done [facility] Other (10 sources) Claritin-D 12 Hour Drug allergy Unknown [facility] Other (1 source) Naproxen; Translations: [Aleve] Drug Allergy [facility] Repository (1 source) NSAIDs; Translations: [NSAIDs] Propensity to adverse reactions (disorder) [facility] Repository (9 sources) Penicillins Allergy to substance 01-07-20 [facility] (6 sources) NSAIDS (Non-Steroidal Anti-Inflamma Allergy to substance 01-07-20 [facility] (3 sources) Bacitracin / Polymyxin B Drug Allergy 07-22-20 [facility] (3 sources) fexofenadine Drug Allergy 06-28-20 Unknown [facility] (3 sources) Loratadine Allergy to substance 06-28-20 [facility] (3 sources) Amoxicillin-Pot Clavulanate Drug Allergy 07-22-20 [facility] Healthcare Work Phone: (3 sources) Wound Dressing Adhesive Drug Allergy 07-22-20 [facility] Medications Current Medications Medication Drug Class(es) Dates Sig (Normalized) Sig (Original) Aspirin (8 sources) Platelet Aggregation Inhibitor, Nonsteroidal Anti-inflammatory Drug Start: 02-10-2023 aspirin 81 mg, Refills(s) 0 Start Date: 02/10/23 Status: Ordered take 1 tablet by mouth once tasha y aspirin 81 MG chewable tablet Chew 1 tablet every day by oral route. Active atorvastatin 40 mg oral tablet (20 sources) HMG-CoA Reductase Inhibitor Start: 02-10-2023 take 1 tablet by mouth in the morning atorvastatin (Lipitor) 40 MG tablet Take 1 tablet by mouth in the morning. 02/10/2023 Active azithromycin 250 mg oral tablet (20 sources) Macrolide Antimicrobial Start: 10-15-2022 azithromycin (Zithromax) 250 MG tablet TAKE 2 TABLETS BY MOUTH ON DAY 1, AND THEN TAKE 1 TABLET BY MOUTH ONCE A DAY ON DAY 2 THROUGH DAY 5 10/15/2022 Active Start: 10-15-2022 Azithromycin 2 50 MG as directed Orally daily for 5 days Oct, Not-Taking/PRN cholecalciferol 0.025 mg oral capsule (6 sources) Vitamin D take 1 capsule by mouth once daily cholecalciferol (Vitamin D-3) 25 MCG (1000 UT) capsule Take 1 capsule every day by oral route. Active Contour Next Test - (18 sources) Contour Next Bebe t - USE 1 STRIP TO CHECK GLUCOSE ONCE DAILY for 90 days DX E11.65 Active Contour Next Bebe t - USE 1 STRIP TO CHECK GLUCOSE ONCE DAILY for 90 Active Contour Next Bebe t - as directed In Vitro Active doxycycline hyclate 100 mg oral capsule (16 sources) Tetracycline-class Drug Start: 04-30-2024 End: 06-28-2024 doxycycline (Vibramycin) 100 MG capsule Once 06/28/2024 Active Start: 04-13-2024 End: 04-30-2024 take 1 capsule by mouth twice daily Doxycycline Hyclate 100 mg capsule Discontinued 100 MG PO Twice daily 30 05April 21, 2024 11:31am April 30, 2024 10:17am erythromycin 0.005 mg/mg ophthalmic ointment (6 sources) Macrolide, Macrolide Antimicrobial Start: 05-23-2022 erythromycin (Romycin) 5 MG/GM ophthalmic ointment APPLY A THIN LAYER INTO LEFT EYE ONE A DAY 05/23/2022 Active hydroCHLOROthiazide 12.5 mg / lisinopril 10 mg oral tablet (20 sources) Thiazide Diuretic, Angiotensin Converting Enzyme Inhibitor Start: 10-02-2023 take 1 tablet by mouth once daily Lisinopril-Hydroc hlorothiazide 10-12.5 mg tablet Active 1 TAB PO Daily October 02, 2023 12:00am Start: 02-10-2023 hydrochlorothi azide-lisinopril Refill(s) 0 Start Date: 02/10/23 Status: Ordered Start: 02-10-2023 LISINOPRIL-HYD ROCHLOROTHIAZIDE PO Refill(s) 0 02/10/2023 Active levoFLOXacin 750 mg oral tablet (6 sources) Quinolone Antimicrobial Start: 01-18-2023 take 1 tablet by mouth once daily levoFLOXacin (Levaquin) 750 MG tablet TAKE 1 TABLET BY MOUTH ONCE DAILY FOR 7 DAYS 01/18/2023 Active levothyroxine sodium 0.075 mg oral tablet (20 sources) l-Thyroxine Start: 02-10-2023 levothyroxine 75 mcg (0.075 mg) Tab Refills(s) 0 Start Date: 02/10/23 Status: Ordered Start: 02-10-2023 take 1 tablet by hubert th once daily levothyroxine (Synthroid, Levoxyl) 75 MCG tablet Take 1 tablet every day by oral route for 90 days. 02/10/2023 Active metFORMIN hydrochloride 500 mg oral tablet (20 sources) Biguanide Start: 10-02-2023 End: 12-02-2023 take 1 tablet by mouth twice daily Metformin 500 mg tablet Active 500 MG PO Twice daily 180 90 December 02, 2023 11:44am Start: 02-10-2023 metformin 500 mg, Refills(s) 0 Start Date: 02/10/23 Status: Ordered take 1 tablet by hubert th every twenty-four hours metFORMIN HCl 500 MG 1 tablet with a meal Orally Once a day for 90 days Active 24 hr metoprolol succinate 25 mg extended release oral tablet (20 sources) beta-Adrenergic Renard Start: 02-10-2023 take 1 tablet by mouth once daily metoprolol succinate XL (Toprol-XL) 25 MG 24 hr tablet Take 1 tablet every day by oral route for 30 days. 02/10/2023 Active metroNIDAZOLE 500 mg oral tablet (15 sources) Nitroimidazole Antimicrobial Start: 02-24-2023 metroNIDAZOLE (Flagyl) 500 MG tablet 02/24/2023 Active mupirocin 0.02 mg/mg topical ointment (8 sources) RNA Synthetase Inhibitor Antibacterial Start: 04-13-2024 mupirocin (Bactroban) 2 % ointment 04/13/2024 Active Start: 04-13-2024 Mupirocin 2 % ointment Active 1 APPLIC TOPICAL Twice daily 01 06April 12, 2024 11:00pm ondansetron 4 mg disintegrating oral tablet (6 sources) Serotonin-3 Receptor Antagonist Start: 01-18-2023 take 1 tablet by mouth once daily as needed for nausea and vomiting ondansetron ODT (Zofran-ODT) 4 MG disintegrating tablet DISSOLVE 1 TABLET IN MOUTH ONCE DAILY NEEDED FOR NAUSEA AND VOMITING FOR 4 DAYS 01/18/2023 Active pantoprazole 40 mg delayed release oral tablet (6 sources) Proton Pump Inhibitor take 1 tablet by mouth once daily pantoprazole (ProtoNix) 40 MG EC tablet Take 1 tablet every day by oral route for 90 days. Active paxlovid (300/100) 20 x 150 mg & 10 x 100mg tablet therapy pack (2 sources) Start: 06-24-2023 Paxlovid (300/100) 20 x 150 MG & 10 x 100MG as directed Orally bid for 5 days Jun, Active tamsulosin hydrochloride 0.4 mg oral capsule (6 sources) alpha-Adrenergic Renard Start: 01-18-2023 take 1 capsule by mouth every twenty-four hours in the morning tamsulosin (Flomax) 0.4 MG 24 hr capsule Take 0.4 mg by mouth in the morning. 01/18/2023 Active triamcinolone acetonide 1 mg/ml topical cream (6 sources) Corticosteroid triamcinolone (Kenalog) 0.1 % cream Active Vitamin D (2 sources) Start: 02-10-2023 [...] Drug Class(es) Dates Sig (Normalized) Sig (Original) ciprofloxacin 500 mg oral tablet (20 sources) Quinolone Antimicrobial Start: 02-24-2023 take 1 tablet by mouth every twelve hours Ciprofloxacin HCl 500 MG 1 tablet Orally every 12 hrs Feb, Not-Taking/PRN Start: 01-22-2023 Cipro 500 MG t ablet See Instructions, Take 1 tab day prior to procedure and 1 tab day of procdure - afterwards, # 2 tab(s), Refills(s) 0, Pharmacy: [facility] 1988 01/22/2023 Active Suprep Bowel Prep . (18 sources) Start: [...] Translations: [Abdominal pain] Onset: 03-22-2014 Episodic Acute bronchitis (6 sources) Acute bronchitis due to other specified organisms; Translations: [Acute bronchitis] Onset: 08-15-2014 Episodic Acute myocardial infarction (7 sources) Non-ST elevation (NSTEMI) myocardial infarction; Translations: [Acute non-ST segment elevation myocardial infarction] Onset: 09-11-2017 Chronic Anxiety disorders (20 sources) Generalized anxiety disorder; Translations: [Generalized anxiety disorder] Chronic Calculus of urinary tract (20 sources) Personal history of urinary calculi; Translations: [Kidney stone] Onset: 12-28-2021 Episodic Cataract (1 source) Artificial lens present; Translations: [Presence of intraocular lens] 07-22-2024 Chronic Congestive heart failure; nonhypertensive (1 source) Unspecified systolic (congestive) heart failure; Translations: [UNSPECIFIED SYSTOLIC (CONGESTIVE) HEART FAILURE] Onset: 09-15-2017 Chronic Coronary atherosclerosis and other heart disease (20 sources) Coronary arteriosclerosis; Translations: [Atherosclerotic heart disease of [place] coronary artery without angina pectoris] Onset: 09-25-2017 Chronic Diabetes mellitus with complications (20 sources) Hyperglycemia due to type 2 diabetes mellitus; Translations: [Type 2 diabetes mellitus with hyperglycemia] Onset: 11-23-2013 Chronic Diabetes mellitus without complication (7 sources) Type 2 diabetes mellitus without complications; [...] (1 source) Seizure 09-02-2023 Episodic Esophageal disorders (16 sources) Gastro-esophageal reflux disease with esophagitis; Translations: [Gastroesophageal reflux disease with esophagitis without hemorrhage] 10-02-2023 Chronic Essential hypertension (20 sources) Essential (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 Mycoses (2 sources) Onychomycosis; Translations: [Tinea unguium] 05-17-2024 Episodic Nutritional deficiencies (4 sources) Vitamin D deficiency; Translations: [Vitamin D deficiency, unspecified] Onset: 11-22-2014 Chronic Open wounds of extremities (9 sources) Laceration of lower limb; Translations: [Laceration without foreign body, right lower leg, initial encounter] 04-21-2024 Episodic Osteoarthritis (20 sources) Arthritis of joint of left shoulder region; Translations: [Primary osteoarthritis, left shoulder] Onset: 12-25-2017 Chronic Other aftercare (2 sources) Other watermelon inspector (current) drug therapy; Translations: [OTH MEDICAL REVIEW SPECIALIST CURRENT DRUG THERAPY] Onset: 03-22-2022 Episodic Other aftercare (4 sources) Long-term current use of drug therapy; Translations: [Other senior care (current) drug therapy] Episodic Other and ill-defined [...] the circulatory and respiratory systems] Episodic Other connective tissue disease (2 sources) Pain in both feet; Translations: [Pain in right foot] 05-17-2024 Episodic Other injuries and conditions due to external causes (4 sources) History of fall; Translations: [History of falling] Episodic Other non-traumatic joint disorders (2 sources) Lower limb joint arthritis; Translations: [Osteoarthrosis, unspecified whether generalized or localized, lower leg] Onset: 04-26-2016 Chronic Other screening for suspected conditions (not mental disorders or infectious disease) (20 sources) Encounter for screening mammogram for malignant neoplasm of breast; Translations: [Other specified abnormal findings of blood chemistry] Onset: 11-23-2013 Episodic Other skin disorders (1 source) Callosity; Translations: [Corns and callosities] 05-17-2024 Episodic Other upper respiratory infections (20 sources) [...] reasons] Episodic Skin and subcutaneous tissue infections (10 sources) Cutaneous abscess of perineum; Translations: [Cellulitis of leg, excluding foot] Episodic Systemic lupus erythematosus and connective tissue disorders (2 sources) Autoimmune disease; Translations: [Autoimmune disease, not elsewhere classified] Onset: [birth year]11-1961 Chronic Thyroid disorders (20 sources) Hypothyroidism, unspecified; 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] Onset: 09-15-2017 Chronic Comment on above: US: right 1.2cm TR04/2024 Unclassified (2 sources) Unknown / UNK(Unknown) Onset: [...] Classification Problem Date Documented Da te Episodic/Chronic Allergic reactions (9 sources) Allergy status to [...] Onset: 11-22-2014 Episodic Other aftercare (1 source) watermelon inspector (current) use of aspirin; Translations: [MEDICAL REVIEW SPECIALIST CURRENT USE OF ASPIRIN] Onset: 01-10-2022 Episodic Other aftercare (1 source) watermelon inspector (current) use of oral hypoglycemic drugs; Translations: [FCI USE ORAL HYPOGLYCEMIC DX] Onset: 01-10-2022 Episodic [...] Test Name Value Interpretation Reference Range Facility Basophils Auto (Bld) [#/Vol] on 04-21-2024 Basophils (Bld) [#/Vol] 0.1 10 3/uL 0.0-0.1 [facility] Basophils (Bld) [#/Vol] Automated basophil count 0.0-0.1 [facility] Basophils/100 WBC Auto (Bld) on 04-21-2024 Basophils/100 WBC (Bld) 0.7 % 0.2-2.0 [facility] Basophils/100 WBC (Bld) Automated basophil % 0.2-2.0 [facility] Cholesterol in LDL Calc [Mas s/Vol]on 04-21-2024 Cholesterol in LDL [Mass/Vol] 38.0 mg/dL [facility] Comment on above: <100 mg/dl [id number] mg/dl NEAR OR ABOVE [id number] mg/dl BORDERLINE [id number] mg/dl HIGH>190 mg/dl VERY HIGH Cholesterol in LDL [Mass/Vol] Cholesterol in LDL [Mass/volume] in Serum or Plasma by calculation [facility] Comment on above: <100 mg/dl [id number] mg/dl NEAR OR ABOVE [id number] mg/dl BORDERLINE [id number] mg/dl HIGH>190 mg/dl VERY HIGH Cholesterol in VLDL Calc [Ma ss/Vol]on 04-21-2024 Cholesterol in VLDL [Mass/Vol] 22.4 mg/dL [facility] Cholesterol in VLDL [Mass/Vol] Cholesterol in VLDL [Mass/volume] in Serum or Plasma by calculation [facility] Eosinophils/100 WBC Auto (Bl d)on 04-21-2024 Eosinophils/100 WBC (Bld) 8.1 % High 0.9-7.0 [facility] Eosinophils/100 WBC (Bld) Automated eosinophil % High 0.9-7.0 [facility] Erythrocyte distribution wid th Auto (RBC) [Ratio]on 04-21-2024 Erythrocyte distribution width (RBC) [Ratio] 12.8 % 11.0-15.0 [facility] Erythrocyte distribution width (RBC) [Ratio] Erythrocyte distribution width [Ratio] by Automated count 11.0-15.0 [facility] Estimated glomerular filtrat ion rate (GFR) non- Americanon 04-21-2024 GFR/1.73 sq M.predicted among non-blacks MDRD (S/P/Bld) [Vol rate/Area] mL/min/{1.73_m2} >=60 [facility] GFR/1.73 sq M.predicted among non-blacks MDRD (S/P/Bld) [Vol rate/Area] Estimated glomerular filtration rate (GFR) non- >=60 [facility] Globulin Calc (S) [Mass/Vol] on 04-21-2024 Globulin (S) [Mass/Vol] 3.3 g/dL [facility] Globulin (S) [Mass/Vol] Serum globulin measurement by calculation (mass/volume) [facility] Glucose mean value [Mass/vol ume] in Blood Estimated from glycated hemoglobinon 04-21-2024 Average glucose Estimated from glycated hemoglobin (Bld) [Mass/Vol] 151 mg/dL [facility] Average glucose Estimated from glycated hemoglobin (Bld) [Mass/Vol] Glucose mean value [Mass/volume] in Blood Estimated from glycated hemoglobin [facility] Hematocrit Auto (Bld) [Volum e fraction]on 04-21-2024 Hematocrit (Bld) [Volume fraction] 39.9 % 36.0-48.0 [facility] Hematocrit (Bld) [Volume fraction] Hematocrit [Volume Fraction] of Blood by Automated count 36.0-48.0 [facility] Hemoglobin [Mass/volume] in Bloodon 04-21-2024 Hemoglobin (Bld) [Mass/Vol] 13.0 g/dL 12.0-16.0 [facility] Hemoglobin (Bld) [Mass/Vol] Hemoglobin [Mass/volume] in Blood 12.0-16.0 [facility] Laboratory - Chemistry and C hemistry - challengeon 04-21-2024 Albumin [Mass/Vol] 3.9 g/dL 3.4-5.0 [facility] ALP [Catalytic activity/Vol] 75 U/L 46-116 [facility] ALT [Catalytic activity/Vol] 22 U/L 14-59 [facility] AST [Catalytic activity/Vol] 16 U/L 15-37 [facility] Bilirubin [Mass/Vol] 0.8 mg/dL 0.2-1.0 [facility] Calcium [Mass/Vol] 9.6 mg/dL 8.5-10.1 [facility] Chloride [Moles/Vol] 102 mmol/L 98-107 [facility] Cholesterol [Mass/Vol] 136 mg/dL <=200 [facility] Cholesterol in HDL [Mass/Vol] 76 mg/dL High 40-60 [facility] Comment on above: > or =60 mg/dl - LOW CARDIOVASCULAR RISK <40 mg/dl - HIGH CARDIOVASCULAR RISK CO2 [Moles/Vol] 30.5 mmol/L 21.0-32.0 [facility] Creatinine [Mass/Vol] 0.86 mg/dL 0.55-1.02 [facility] GFR/1.73 sq M.predicted MDRD (S/P/Bld) [Vol rate/Area] mL/min/{1.73_m2} >=60 [facility] Glucose [Mass/Vol] 146 mg/dL High 74-106 [facility] Potassium [Moles/Vol] 3.5 mmol/L 3.5-5.1 [facility] Protein [Mass/Vol] 7.2 g/dL 6.4-8.2 [facility] Sodium [Moles/Vol] 142 mmol/L 136-145 [facility] Triglyceride [Mass/Vol] 112 mg/dL <=150 [facility] TSH Qn 0.505 m[IU]/L 0.358-3.740 [facility] Urea nitrogen [Mass/Vol] 22.0 mg/dL High 7.0-18.0 [facility] Urea nitrogen/Creatin ine [Mass ratio] 25.6 mg/mg [facility] Laboratory - Hematology and Cell countson 04-21-2024 HbA1c (Bld) [Mass fraction] 6.9 % High 4.5-6.2 [facility] Comment on above: ADA RECOMMENDED LIMIT 4.0 - 6.0ADA THERA PEUTIC TARGET < 7.0ACTION SUGGESTED> 7.0 Immature granulocytes/100 WBC (Bld) 0.7 % High 0.0-0.5 [facility] Leukocytes [#/volume] correc keenan for nucleated erythrocytes in Blood by Automated counon 04-21-2024 WBC corrected for nucl RBC Auto (Bld) [#/Vol] 8.6 10 3/uL 4.0-11.0 [facility] WBC corrected for nucl RBC Auto (Bld) [#/Vol] Leukocytes [#/volume] corrected for nucleated erythrocytes in Blood by Automated coun 4.0-11.0 [facility] Lymphocytes Auto (Bld) [#/Vo l]on 04-21-2024 Lymphocytes (Bld) [#/Vol] 3.1 10 3/uL 1.2-3.8 [facility] Lymphocytes (Bld) [#/Vol] Lymphocytes [#/volume] in Blood by Automated count 1.2-3.8 [facility] Lymphocytes/100 WBC Auto (Bl d)on 04-21-2024 Lymphocytes/100 WBC (Bld) 36.2 % 20.5-60.0 [facility] Lymphocytes/100 WBC (Bld) Lymphocytes/100 leukocytes in Blood by Automated count 20.5-60.0 [facility] MCH Auto (RBC) [Entitic mass ]on 04-21-2024 MCH (RBC) [Entitic mass] 30.8 pg 26.7-34.0 [facility] MCH (RBC) [Entitic mass] MCH [Entitic mass] by Automated count 26.7-34.0 [facility] MCHC Auto (RBC) [Mass/Vol]on 04-21-2024 MCHC (RBC) [Mass/Vol] 32.6 g/dL 29.9-35.2 [facility] MCHC (RBC) [Mass/Vol] MCHC [Mass/volume] by Automated count 29.9-35.2 [facility] MCV Auto (RBC) [Entitic vol] on 04-21-2024 MCV (RBC) [Entitic vol] 94.5 fL 81.0-99.0 [facility] MCV (RBC) [Entitic vol] MCV [Entitic volume] by Automated count 81.0-99.0 [facility] Microalbumin [Mass/volume] i n Urineon 04-21-2024 Albumin DL <= 20 mg/L (U) [Mass/Vol] 4.6 mg/dL <=30.0 [facility] Albumin DL <= 20 mg/L (U) [Mass/Vol] Microalbumin [Mass/volume] in Urine <=30.0 [facility] Monocytes Auto (Bld) [#/Vol] on 04-21-2024 Monocytes (Bld) [#/Vol] 0.6 10 3/uL 0.3-0.8 [facility] Monocytes (Bld) [#/Vol] Automated blood monocyte count 0.3-0.8 [facility] Monocytes/100 WBC Auto (Bld) on 04-21-2024 Monocytes/100 WBC (Bld) 7.0 % 1.7-12.0 [facility] Monocytes/100 WBC (Bld) Automated monocyte % 1.7-12.0 [facility] Neutrophils Auto (Bld) [#/Vo l]on 04-21-2024 Neutrophils (Bld) [#/Vol] 4.1 10 3/uL 1.4-6.5 [facility] Neutrophils (Bld) [#/Vol] Neutrophils [#/volume] in Blood by Automated count 1.4-6.5 [facility] Neutrophils/100 WBC Auto (Bl d)on 04-21-2024 Neutrophils/100 WBC (Bld) 47.3 % 43.0-75.0 [facility] Neutrophils/100 WBC (Bld) Automated neutrophil % 43.0-75.0 [facility] No Panel Informationon 04-21 Eosinophils # (Auto) 0.7 10 3/uL 0.0-0.7 [facility] Immature Granulocyte # (Auto) 0.06 10 3/uL High 0.00-0.03 [facility] Platelet mean volume Auto (B ld) [Entitic vol]on 04-21-2024 Platelet mean volume (Bld) [Entitic vol] 11.0 fL 9.5-13.5 [facility] Platelet mean volume (Bld) [Entitic vol] Platelet mean volume [Entitic volume] in Blood by Automated count 9.5-13.5 [facility] Platelets Auto (Bld) [#/Vol] on 04-21-2024 Platelets (Bld) [#/Vol] 287 10 3/uL 150-450 [facility] Platelets (Bld) [#/Vol] Platelets [#/volume] in Blood by Automated count 150-450 [facility] RBC Auto (Bld) [#/Vol]on RBC (Bld) [#/Vol] 4.22 10 6/uL 4.20-5.40 [facility] RBC (Bld) [#/Vol] Erythrocytes [#/volume] in Blood by Automated count 4.20-5.40 [facility] Serum or plasma albumin/glob ulin mass ratioon 04-21-2024 Albumin/Globulin [Mass ratio] 1.2 {ratio} [facility] Albumin/Globulin [Mass ratio] Serum or plasma albumin/globulin mass ratio [facility] Serum or plasma anion gap de terminationon 04-21-2024 Anion gap [Moles/Vol] 13.0 mmol/L [facility] Anion gap [Moles/Vol] Serum or plasma anion gap determination [facility] Serum or plasma total choles terol/high density lipoprotein (HDL) cholesterol mass jaida 04-21-2024 Cholesterol.tota l/Cholesterol in HDL [Mass ratio] 1.8 {ratio} [facility] Comment on above: 3.3 - 4.4 LOW RISK4.4 - 7.1 AVERAGE RISK 7.1 - 11.0 MODERATE RISK>11.0 HIGH RISK Cholesterol.tota l/Cholesterol in HDL [Mass ratio] Serum or plasma total cholesterol/high density lipoprotein (HDL) cholesterol mass rat [facility] Comment on above: 3.3 - 4.4 LOW RISK4.4 - 7.1 AVERAGE RISK 7.1 - 11.0 MODERATE RISK>11.0 HIGH RISK Glucose mean value [Mass/vol ume] in Blood Estimated from glycated hemoglobinon 10-13-2023 Average glucose Estimated from glycated hemoglobin (Bld) [Mass/Vol] 154 mg/dL [facility] Laboratory - Hematology and Cell countson 10-13-2023 HbA1c (Bld) [Mass fraction] 7.0 % 4.5-6.2 [facility] Comment on above: ADA RECOMMENDED LIMIT 4.0 - 6.0ADA THERA PEUTIC TARGET < 7.0ACTION SUGGESTED> 7.0 Consultation Noteon 02-13-20 Consultation Note [id number]#1.00CD:127 [facility] Operative Reporton Operative Report [id number]#1.00CD:127 [facility] Consent for Procedure/Surger yon 02-10-2023 Consent for Procedure/Surger y [id number]#1.00CD:127 [facility] Consent for Treatmenton Consent for Treatment [id number]#1.00CD:127 [facility] Inpatient Patient Summaryon 02-10-2023 Inpatient Patient Summary [address] [address] Clinical Summary Person Information Name: ARIADNA COPELAND Age: 77 Years : 1945 Sex: Female PCP: RUIZ YEE DO Marital Status: Race: White Ethnicity: Non- or Language: Icelandic Visit Id: Visit Reason: KIDNEY STONE Speciality: Acuity: Enc Type: Outpatient Med Service: Surgery Arrival: 02/10/2023 13:32:23 Discharge: Dispo Type: Address: [address] [place] [address] [id number] Provider Notes: Diagnosis: Problems No Problems Documented [...] Follow up: With: Address: When: Andry MCHUGH [address] [place] [address], [address], [place] [phone] Business (1) Within 6 months Comments: Call for followup appointment in about six months with an abdominal X-ray prior to your visit (my office needs to send an order for this study) I will get records from the [facility] to see what the CAT scan demonstrated in terms of whether or not you have more stones in your kidneys. This may change the follow-up date depending on findings. Have a great day! Patient Education Information: EU - Cystoscopy with Stent Removal Discharge Instructions (Custom) [facility] IntraOperative Documentson 0 02-10-2023 IntraOperative Documents [id number]#[id number]:127 [facility] Main OR Intraoperative Recor don 02-10-2023 Main OR Intraoperative Record IntraOp Document Type FTURO Summary Primary Physician: Andry MCHUGH MD Finalized Date/Time: 02/10/23 14:40:33 Pt. Name: ARIADNA COPELAND/Sex: 1945 Female Med Rec #: [id number] Physician: Andry MCHUGH MD Financial #: [id number] Pt. Type: O Room/Bed: / Admit/Disch: 02/10/23 13:32:23 - Institution: Case Times FTURO Entry 1 Patient Times In Room 02/10/23 14:33:00 Out Room 02/10/23 14:49:00 Procedure Times Start 02/10/23 14:35:00 Stop 02/10/23 14:44:00 Anesthesia Times Last Modified By: Reagan FAYE, CRISTIANEOR, Amena 02/10/23 14:39:24 Case Attendance FTURO Entry 1 Entry 2 Entry 3 Case Attendee Andry MCHUGH MD RN, CNOR, Christal MARTINI, Gabrielle Beckwith Role Performed Surgeon - Primary Applications Administrator - Primary Scrub - Primary Time In 02/10/23 14:33:00 02/10/23 14:33:00 02/10/23 14:33:00 Time Out 02/10/23 14:49:00 02/10/23 14:49:00 02/10/23 14:49:00 Procedure CYSTOSCOPY LOCAL WITH CYSTOSCOPY LOCAL WITH CYSTOSCOPY LOCAL WITH STENT REMOVAL(Left) STENT REMOVAL(Left) STENT REMOVAL(Left) Comments Last Modified By: Reagan RN, CNOR, Reagan RN, CNOR, Reagan RN, CNOR, Amena 02/10/23 Amena 02/10/23 Amena 02/10/23 14:39:25 14:39:25 14:39:25 Surgical Procedures FTURO Entry 1 Procedure Description Procedure CYSTOSCOPY LOCAL WITH Modifiers Left STENT REMOVAL Surgeon Description CYSTO WITH LEFT STENT REMOVAL Primary Procedure Yes Primary Surgeon Andry MCHUGH MD Start 02/10/23 14:35:00 Stop 02/10/23 14:44:00 Anesthesia Type Local Surgical Service Urology Wound Class 2 - Clean-Contaminated Last Modified By: DIEGO Kirk RN, Ruthann 02/10/23 14:39:43 General Case Data FTURO Pre-Care Text: Classifies surgical wound, implements aseptic technique, initiates traffic control Entry 1 Case Information OR URO 1 FT Case Level None Wound Class 2 - Clean-Contaminated Specialty Urology Preop Diagnosis KIDNEY STONE with stent Postop Same As Preop Yes placement Postop Diagnosis KIDNEY STONE with stent Outcomes Met? Yes placement Last Modified By: DIEGO Kirk RN, Ruthann 02/10/23 14:40:03 Post-Care Text: The patient is [...] Participants Reagan FAYE, CRISTIANEOR, Applicable) Christal Beckwith CST, Kimberly A Time Out Complete 02/10/23 14:33:00 Allergies Reviewed? [...] 14:40 DIEGO Kirk RN, Ruthann 02/10/23 14:40 Normal [facility] Main OR Preoperative Recordo n 02-10-2023 Main OR Preoperative Record Holding Area Document Type FTURO Summary Primary Physician: Andry MCHUGH MD Finalized Date/Time: 02/10/23 14:39:06 Pt. Name: ARIADNA COPELAND/Sex: 1945 Female Med Rec #: [id number] Physician: Andry MCHUGH MD Financial #: [id number] Pt. Type: O Room/Bed: / Admit/Disch: 02/10/23 [...] Complaints of Pain: No Skin Integrity Intact, [place], Warm, & Dry Vitals - EU Blood Pressure 159/68 Pulse 64 bpm Respirations 20 br/min SPO2 98 % RN Reviewed Yes Last Modified By: DIEGO Kirk RN, Ruthann 02/10/23 14:39:04 General Comments: Temp 98.2 Finalized By: DIEGO Kirk RN, Ruthann Document Signatures Signed By: Valorie Ross LPN 02/10/23 14:22 DIEGO Kirk RN, Ruthann 02/10/23 14:39 [facility] Operative Reporton Operative Report Patient: ERIC COPELAND Age: 77 [...] home, Follow-up 6 months with KUB.. [facility] Comment on above: Result Comment: Electronically Signed By : Andry MCHUGH MD\.br\Date and Time Signed: 02/10/23 14:48 EDT Outpatient Surgery Discharge Instructionon 02-10-2023 Outpatient Surgery Discharge Instruction [place] [address] Patient Discharge Instructions PERSON INFORMATION Name: ARIADNA [...] OR CALL 911 Follow up: With: Address: When: Andry MCHUGH [address] [place] [address] AVE, [address], [place] [phone] Business (1) Within 6 months Comments: Call for followup appointment in about six months with an abdominal X-ray prior to your visit (my office needs to send an order for this study) I will get records from the [facility] to see what the CAT scan [...] you have a fever over 100 degrees. I, ARIADNA COPELAND, have received the attached patient education materials/instructions [...] to serve you. Thank you for choosing [facility] Normal [facility] Lab Reportson 01-27-2023 Lab Reports [id number]#1.00CD:127 [facility] RAD - MISCon 01-23-2023 [facility] [id number]#1.00CD:127 [facility] Insurance Correspondence Off iceon 01-22-2023 Insurance Correspondence Office [id number]:127 [facility] GLYCOHEMOGLOBIN A1Con 2022 ADA RECOMMENDATION SEE BELOW Normal [facility] Comment on above: Result Comment: ADA RECOMMENDED LIMIT 4. 0 - 6.0 ADA THERAPEUTIC TARGET < 7.0 ACTION SUGGESTED > 7.0 Performed By: #### A 1C #### [facility] [address] [place] [address] Dr. Sam Balderrama Glucose [Mass/Vol] 154 mg/dL Normal [facility] Comment on above: Performed By: #### A1C #### [facility] [address] [place] [address] [address] Sam Balderrama HbA1c (Bld) [Mass fraction] 7.0 % Critically high 4.5-6.2 [facility] Comment on above: Performed By: #### A1C #### [facility] [address] [place] [address] Dr. Sam Balderrama MICROALBUMIN URINEon 022 Albumin, Urine 42.4 ug/mL Normal Not Estab. [facility] Comment on above: Performed By: #### MALBLC #### [facility] [address] [place] [address] Dr. Sam Balderrama CBC AUTO DIFFon 03-20-2022 BASO # 0.1 103/ul Normal 0.0-0.1 [facility] Comment on above: Performed By: #### A1C #### [facility] [address] [place] [address] Dr. Sam Balderrama Basophils/100 WBC (Bld) 1.0 % Normal 0.2-2.0 [facility] Comment on above: Performed By: #### A1C #### [facility] [address] [place] [address] Dr. Sam Balderrama EO # 0.5 103/ul Normal 0.0-0.7 [facility] Comment on above: Performed By: #### A1C #### [facility] [address] [place] [address] Dr. Sam Balderrama Eosinophils/100 WBC (Bld) 6.4 % Normal 0.9-7.0 [facility] Comment on above: Performed By: #### A1C #### [facility] [address] [place] [address] Dr. Sam Balderrama Erythrocyte distribution width (RBC) [Ratio] 12.5 % Normal 11.0-15.0 [facility] Comment on above: Performed By: #### A1C #### [facility] [address] [place] [address] Dr. Sam Balderrama Hematocrit (Bld) [Volume fraction] 40.6 % Normal 36.0-48.0 [facility] Comment on above: Performed By: #### A1C #### [facility] [address] [place] [address] Dr. Sam Balderrama Hemoglobin (Bld) [Mass/Vol] 13.1 g/dL Normal 12.0-16.0 [facility] Comment on above: Performed By: #### A1C #### [facility] [address] [place] [address] Dr. Sam Balderrama IG # 0.04 10e3/ul Critically high 0.00-0.03 [facility] Comment on above: Performed By: #### A1C #### [facility] [address] [place] [address] Dr. Sam Balderrama IG % 0.5 % Normal 0.0-0.5 [facility] Comment on above: Performed By: #### A1C #### [facility] [address] [place] [address] Dr. Sam Balderrama LYMPH # 2.8 103/ul Normal 1.2-3.8 [facility] Comment on above: Performed By: #### A1C #### [facility] [address] [place] [address] Dr. Sam Balderrama Lymphocytes/100 WBC (Bld) 38.7 % Normal 20.5-60.0 [facility] Comment on above: Performed By: #### A1C #### [facility] [address] [place] [address] Dr. Sam Balderrama MANUAL DIFF REQ NO Normal [facility] Comment on above: Performed By: #### A1C #### [facility] [address] [place] [address] Dr. Sam Balderrama MCH (RBC) [Entitic mass] 30.6 pg Normal 26.7-34.0 [facility] Comment on above: Performed By: #### A1C #### [facility] [address] [place] [address] Dr. Sam Balderrama MCHC (RBC) [Mass/Vol] 32.3 g/dL Normal 29.9-35.2 [facility] Comment on above: Performed By: #### A1C #### [facility] [address] [place] [address] Dr. Sam Balderrama MCV (RBC) [Entitic vol] 94.9 fL Normal 81.0-99.0 [facility] Comment on above: Performed By: #### A1C #### [facility] [address] [place] [address] Dr. Sam Balderrama MONO # 0.6 103/ul Normal 0.3-0.8 [facility] Comment on above: Performed By: #### A1C #### [facility] [address] [place] [address] Dr. Sam Balderrama Monocytes/100 WBC (Bld) 8.4 % Normal 1.7-12.0 [facility] Comment on above: Performed By: #### A1C #### [facility] [address] [place] [address] Dr. Sam Balderrama NEUT # 3.3 103/ul Normal 1.4-6.5 [facility] Comment on above: Performed By: #### A1C #### [facility] [address] [place] [address] Dr. Sam Balderrama Neutrophils/100 WBC (Bld) 45.0 % Normal 43.0-75.0 [facility] Comment on above: Performed By: #### A1C #### [facility] [address] [place] [address] Dr. Sam Balderrama Platelet mean volume (Bld) [Entitic vol] 10.4 fL Normal 9.5-13.5 [facility] Comment on above: Performed By: #### A1C #### [facility] [address] [place] [address] Dr. Sam Balderrama PLT 257 103/ul Normal 150-450 [facility] Comment on above: Performed By: #### A1C #### [facility] [address] [place] [address] Dr. Sam Balderrama RBC 4.28 106/ul Normal 4.20-5.40 [facility] Comment on above: Performed By: #### A1C #### [facility] [address] [place] [address] [address] Sam Balderrama WBC 7.3 103/ul Normal 4.0-11.0 [facility] Comment on above: Performed By: #### A1C #### [facility] [address] [place] [address] [address] Sam Balderrama GLYCOHEMOGLOBIN A1Con 2021 ADA RECOMMENDATION SEE BELOW Normal [facility] Comment on above: Result Comment: ADA RECOMMENDED LIMIT 4. 0 - 6.0 ADA THERAPEUTIC TARGET < 7.0 ACTION SUGGESTED > 7.0 Performed By: #### B MODERN LANGUAGES PROFESSOR, CMP, LIPA #### [facility] [address] [place] [address] Dr. Sam Balderrama Glucose [Mass/Vol] 169 mg/dL Normal [facility] Comment on above: Performed By: #### BNP, CMP, LIPA #### [facility] [address] [place] [address] Dr. Sam Balderrama HbA1c (Bld) [Mass fraction] 7.5 % Critically high 4.5-6.2 [facility] Comment on above: Performed By: #### BNP, CMP, LIPA #### [facility] [address] [place] [address] Dr. Sam Balderrama LIPID PROFILEon 03-20-2022 CHOL-HDL RATIO NORM SEE BELOW Normal [facility] Comment on above: Result Comment: 3.3 - 4.4 LOW RISK 4.4 - 7.1 AVERAGE RISK 7.1 - 11.0 MODERATE RISK >11.0 HIGH RISK Performed By: #### C VDTBH #### [facility] [address] [place] [address] Dr. Sam Balderrama Cholesterol [Mass/Vol] 124 mg/dL Normal <=200 [facility] Comment on above: Performed By: #### CVDTBH #### [facility] [address] [place] [address] Dr. Sam Balderrama Cholesterol in HDL [Mass/Vol] 59 mg/dL Normal 40-60 [facility] Comment on above: Performed By: #### CVDTBH #### [facility] [address] [place] [address] [address] Sam Balderrama Cholesterol in LDL [Mass/Vol] 47.2 mg/dL Normal [facility] Comment on above: Performed By: #### CVDTBH #### [facility] [address] [place] [address] Dr. Sam Balderrama Cholesterol.tota l/Cholesterol in HDL [Mass ratio] 2.1 {ratio} Normal [facility] Comment on above: Performed By: #### CVDTBH #### [facility] [address] [place] [address] Dr. Sam Balderrama HDL NORMAL > or = 60 mg/dl - LO W CARDIOVASCULAR RISK <40 mg/dl - HIGH CARDIOVASCULAR RISK Normal [facility] Comment on above: Performed By: #### CVDTBH #### [facility] [address] [place] [address] Dr. Sam Balderrama LDL CALC NORMAL SEE BELOW Normal [facility] Comment on above: Result Comment: <100 mg/dl OPTIMAL 100 - 129 mg/dl NEAR OR ABOVE OPTIMAL 130 - 159 mg/dl BORDERLINE HIGH 160 - 189 mg/dl HIGH >190 mg/dl VERY HIGH Performed By: #### C VDTBH #### [facility] [address] [place] [address] Dr. Sam Balderrama Triglyceride [Mass/Vol] 89 mg/dL Normal <=150 [facility] Comment on above: Performed By: #### CVDTBH #### [facility] [address] [place] [address] Dr. Sma Balderrama VLDL CALC 17.8 mg/dL Normal [facility] Comment on above: Performed By: #### CVDTBH #### [facility] [address] [place] [address] Dr. Sam Balderrama MG MAMM SCREEN 3D YAZMIN CADon 03-20-2022 MG MAMM SCREEN 3D YAZMIN CAD Patient: ARIADNA COPELAND Exam Date: 03/20/2022 : 1945 Gender:F Ordering : DR RUIZ YEE D.O. Admission #: [id number] Family : Order #: [id number] CLICK HERE TO VIEW EXAM RADIOLOGY REPORT [...] breast cancer at age 78. LOCATION: [facility] BREAST COMPOSITION: Scattered areas fibroglandular density. [...] Herrera MD on 03/20/2022 at 12:35 Normal [facility] ALT [Catalytic activity/Vol] 26 U/L Normal 14-59 [facility] Comment on above: Performed By: #### CVDTBH #### [facility] [address] [place] [address] [address] Sam Balderrama TSHon 03-20-2022 TSH 0.381 uIU/mL Normal 0.358-3.740 [facility] Comment on above: Performed By: #### CVDTBH #### [facility] [address] [place] [address] [address] Sam Balderrama XR DEXA BONE DENSITYon 03-20 XR DEXA BONE DENSITY DEXA Bone Density Study CLINICAL: Evaluate bone mineral density. This menopausal COMPARISON: None FINDINGS: The bone density study was assessed by dual-energy x-ray absorptiometry with the [employer] scanner. The test results are expressed in [...] RICHARD HANNA Date: 2022-03-20 08:49 Normal [facility] SARS-CoV-2 (COVID-19) RNA MANNY+probe Ql (Unsp spec) Not detected Normal NOT DETECTED [facility] Comment on above: Result Comment: This test is not yet john roved or cleared by the [place] FDA. When there are no FDA-approved or cleared tests available, and other criteria are met, FDA can make tests available under an emergency access mechanism called an Emergency Use Authorization (EUA). The EUA for this test is supported by the [employer] of Health and Human Service's (HHS's) declaration [...] SARS-CoV-2. Performed By: #### C VDTB #### [facility] [address] [place] [address] Dr. Sam Balderrama CBC AUTO DIFFon 01-07-2022 BASO # 0.1 103/ul Normal 0.0-0.1 [facility] Comment on above: Performed By: #### CBC #### [facility] [address] [place] [address] Dr. Sam Balderrama Basophils/100 WBC (Bld) 0.6 % Normal 0.2-2.0 [facility] Comment on above: Performed By: #### CBC #### [facility] [address] [place] [address] Dr. Sam Balderrama EO # 0.2 103/ul Normal 0.0-0.7 [facility] Comment on above: Performed By: #### CBC #### [facility] [address] [place] [address] [address] Sam Balderrama Eosinophils/100 WBC (Bld) 2.7 % Normal 0.9-7.0 [facility] Comment on above: Performed By: #### CBC #### [facility] [address] [place] [address] Dr. Sam Balderrama Erythrocyte distribution width (RBC) [Ratio] 12.6 % Normal 11.0-15.0 [facility] [place] Comment on above: Performed By: #### CBC #### [facility] [address] [place] [address] Dr. Sam Balderrama Hematocrit (Bld) [Volume fraction] 34.2 % Critically low 36.0-48.0 [facility] [place] Comment on above: Performed By: #### CBC #### [facility] [address] [place] [address] Dr. Sam Balderrama Hemoglobin (Bld) [Mass/Vol] 10.9 g/dL Critically low 12.0-16.0 [facility] [place] Comment on above: Performed By: #### CBC #### [facility] [address] [place] [address] Dr. Sam Balderrama IG # 0.10 10e3/ul Critically high 0.00-0.03 [facility] [place] Comment on above: Performed By: #### CBC #### [facility] [address] [place] [address] Dr. Sam Balderrama IG % 1.1 % Critically high 0.0-0.5 [facility] Comment on above: Performed By: #### CBC #### [facility] [address] [place] [address] Dr. Sam Balderrama LYMPH # 2.7 103/ul Normal 1.2-3.8 [facility] Comment on above: Performed By: #### CBC #### [facility] [address] [place] [address] Dr. Sam Balderrama Lymphocytes/100 WBC (Bld) 31.0 % Normal 20.5-60.0 [facility] Comment on above: Performed By: #### CBC #### [facility] [address] [place] [address] Dr. Sam Balderrama MANUAL DIFF REQ NO Normal [facility] Comment on above: Performed By: #### CBC #### [facility] [address] [place] [address] Dr. Sam Balderrama MCH (RBC) [Entitic mass] 30.8 pg Normal 26.7-34.0 [facility] [place] Comment on above: Performed By: #### CBC #### [facility] [address] [place] [address] Dr. Sam Balderrama MCHC (RBC) [Mass/Vol] 31.9 g/dL Normal 29.9-35.2 [facility] [place] Comment on above: Performed By: #### CBC #### [facility] [address] [place] [address] Dr. Sam Balderrama MCV (RBC) [Entitic vol] 96.6 fL Normal 81.0-99.0 [facility] [place] Comment on above: Performed By: #### CBC #### [facility] [address] [place] [address] Dr. Sam Balderrama MONO # 0.9 103/ul Critically high 0.3-0.8 [facility] [place] Comment on above: Performed By: #### CBC #### [facility] [address] [place] [address] Dr. Sam Balderrama Monocytes/100 WBC (Bld) 10.5 % Normal 1.7-12.0 [facility] [place] Comment on above: Performed By: #### CBC #### [facility] [address] [place] [address] Dr. Sam Balderrama NEUT # 4.7 103/ul Normal 1.4-6.5 [facility] Comment on above: Performed By: #### CBC #### [facility] [address] [place] [address] Dr. Sam Balderrama Neutrophils/100 WBC (Bld) 54.1 % Normal 43.0-75.0 [facility] Comment on above: Performed By: #### CBC #### [facility] [address] [place] [address] Dr. Sam Balderrama Platelet mean volume (Bld) [Entitic vol] 9.7 fL Normal 9.5-13.5 [facility] [place] Comment on above: Performed By: #### CBC #### [facility] [address] [place] [address] Dr. Sam Balderrama PLT 258 103/ul Normal 150-450 [facility] Comment on above: Performed By: #### CBC #### [facility] [address] [place] [address] Dr. Sam Balderrama RBC 3.54 106/ul Critically low 4.20-5.40 [facility] [place] Comment on above: Performed By: #### CBC #### [facility] [address] [place] [address] Dr. Sam Balderrama WBC 8.7 103/ul Normal 4.0-11.0 [facility] [place] Comment on above: Performed By: #### CBC #### [facility] [address] [place] [address] Dr. Sam Balderrama POINT OF CARE GLUCOSEon 12-11 Glucose [Mass/Vol] 145 mg/dL Critically high 74-106 [facility] [place] Comment on above: Performed By: #### A1C #### [facility] [address] [place] [address] Dr. Sam Balderrama PROF 14(COMP METB)on 022 Albumin [Mass/Vol] 2.8 g/dL Critically low 3.4-5.0 [facility] [place] Comment on above: Performed By: #### CVDTBH #### [facility] [address] [place] [address] Dr. Sam Balderrama Albumin/Globulin [Mass ratio] 1.2 {ratio} Normal [facility] [place] Comment on above: Performed By: #### CVDTBH #### [facility] [address] [place] [address] Dr. Sam Balderrama ALP [Catalytic activity/Vol] 48 U/L Normal 46-116 [facility] [place] Comment on above: Performed By: #### CVDTBH #### [facility] [address] [place] [address] Dr. Sam Balderrama ALT [Catalytic activity/Vol] 32 U/L Normal 14-59 [facility] [place] Comment on above: Performed By: #### CVDTBH #### [facility] [address] [place] [address] Dr. Sam Balderrama Anion gap [Moles/Vol] 10.9 mmol/L Normal [facility] [place] Comment on above: Performed By: #### CVDTBH #### [facility] [address] [address] [address] Sam Balderrama AST [Catalytic activity/Vol] 17 U/L Normal 15-37 [facility] [place] Comment on above: Performed By: #### CVDTBH #### [facility] [address] [address] [address] Sam Balderrama Bilirubin [Mass/Vol] 0.5 mg/dL Normal 0.2-1.0 [facility] [place] Comment on above: Performed By: #### CVDTBH #### [facility] [address] [place] [address] Dr. Sam Balderrama Calcium [Mass/Vol] 8.4 mg/dL Critically low 8.5-10.1 [facility] [place] Comment on above: Performed By: #### CVDTBH #### [facility] [address] [place] [address] Dr. Sam Balderrama Chloride [Moles/Vol] 105 mmol/L Normal 98-107 [facility] [place] Comment on above: Performed By: #### CVDTBH #### [facility] [address] [place] [address] Dr. Sam Balderrama CO2 [Moles/Vol] 29.5 mmol/L Normal 21.0-32.0 [facility] Comment on above: Performed By: #### CVDTBH #### [facility] [address] [address] [address] Sam Balderrama Creatinine [Mass/Vol] 0.90 mg/dL Normal 0.55-1.02 [facility] [place] Comment on above: Performed By: #### CVDTBH #### [facility] [address] [address] [address] Sam Balderrama EGFR-AF BAHRAINI >60 Normal >=60 [facility] Comment on above: Performed By: #### CVDTBH #### [facility] [address] [address] [address] Sam Balderrama EGFR-NON AF BAHRAINI >60 Normal >=60 [facility] [place] Comment on above: Performed By: #### CVDTBH #### [facility] [address] [address] [address] Sam Balderrama Globulin (S) [Mass/Vol] 2.4 g/dL Normal [facility] [place] Comment on above: Performed By: #### CVDTBH #### [facility] [address] [address] [address] Sam Balderrama Glucose [Mass/Vol] 134 mg/dL Critically high 74-106 [facility] [place] Comment on above: Performed By: #### CVDTBH #### [facility] [address] [place] [address] Dr. Sam Balderrama Potassium [Moles/Vol] 4.4 mmol/L Normal 3.5-5.1 [facility] [place] Comment on above: Performed By: #### CVDTBH #### [facility] [address] [address] [address] Sam Balderrama Protein [Mass/Vol] 5.2 g/dL Critically low 6.4-8.2 [facility] [place] Comment on above: Performed By: #### CVDTBH #### [facility] [address] [address] [address] Sam Balderrama Sodium [Moles/Vol] 141 mmol/L Normal 136-145 [facility] Comment on above: Performed By: #### CVDTBH #### [facility] [address] [address] [address] Sam Balderrama Urea nitrogen [Mass/Vol] 14.0 mg/dL Normal 7.0-18.0 [facility] [place] Comment on above: Performed By: #### CVDTBH #### [facility] [address] [address] [address] Sam Balderrama Urea nitrogen/Creatin ine [Mass ratio] 15.6 mg/mg Normal [facility] [place] Comment on above: Performed By: #### CVDTBH #### [facility] [address] [place] [address] Dr. Sam Balderrama BNPon 01-06-2022 Natriuretic peptide B (Bld) [Mass/Vol] 213.0 pg/mL Normal <=1,800.0 [facility] [place] Comment on above: Performed By: #### BNP, CMP, LIPA #### [facility] [address] [place] [address] Dr. Sam Balderrama CBC AUTO DIFFon 01-06-2022 BASO # 0.1 103/ul Normal 0.0-0.1 [facility] [place] Comment on above: Performed By: #### BNP, CMP, LIPA #### [facility] [address] [place] [address] Dr. Sam Balderrama Basophils/100 WBC (Bld) 0.6 % Normal 0.2-2.0 [facility] [place] Comment on above: Performed By: #### BNP, CMP, LIPA #### [facility] [address] [place] [address] Dr. Sam Balderrama EO # 0.2 103/ul Normal 0.0-0.7 [facility] Comment on above: Performed By: #### BNP, CMP, LIPA #### [facility] [address] [place] [address] Dr. Sam Balderrama Eosinophils/100 WBC (Bld) 2.5 % Normal 0.9-7.0 [facility] [place] Comment on above: Performed By: #### BNP, CMP, LIPA #### [facility] [address] [place] [address] Dr. Sam Balderrama Erythrocyte distribution width (RBC) [Ratio] 12.7 % Normal 11.0-15.0 [facility] [place] Comment on above: Performed By: #### BNP, CMP, LIPA #### [facility] [address] [place] [address] Dr. Sam Balderrama Hematocrit (Bld) [Volume fraction] 35.7 % Critically low 36.0-48.0 [facility] [place] Comment on above: Performed By: #### BNP, CMP, LIPA #### [facility] [address] [address] [address] Sam Balderrama Hemoglobin (Bld) [Mass/Vol] 11.4 g/dL Critically low 12.0-16.0 [facility] [place] Comment on above: Performed By: #### BNP, CMP, LIPA #### [facility] [address] [address] [address] Sam Balderrama IG # 0.15 10e3/ul Critically high 0.00-0.03 [facility] [place] Comment on above: Performed By: #### BNP, CMP, LIPA #### [facility] [address] [place] [address] Dr. Sam Balderrama IG % 1.9 % Critically high 0.0-0.5 [facility] [place] Comment on above: Performed By: #### BNP, CMP, LIPA #### [facility] [address] [place] [address] Dr. Sam Balderrama LYMPH # 2.7 103/ul Normal 1.2-3.8 [facility] [place] Comment on above: Performed By: #### BNP, CMP, LIPA #### [facility] [address] [place] [address] Dr. Sam Balderrama Lymphocytes/100 WBC (Bld) 33.5 % Normal 20.5-60.0 [facility] [place] Comment on above: Performed By: #### BNP, CMP, LIPA #### [facility] [address] [place] [address] Dr. Sam Balderrama MANUAL DIFF REQ NO Normal [facility] Comment on above: Performed By: #### BNP, CMP, LIPA #### [facility] [address] [place] [address] Dr. Sam Balderrama MCH (RBC) [Entitic mass] 31.0 pg Normal 26.7-34.0 [facility] Comment on above: Performed By: #### BNP, CMP, LIPA #### [facility] [address] [place] [address] Dr. Sam Balderrama MCHC (RBC) [Mass/Vol] 31.9 g/dL Normal 29.9-35.2 [facility] Comment on above: Performed By: #### BNP, CMP, LIPA #### [facility] [address] [place] [address] Dr. Sam Balderrama MCV (RBC) [Entitic vol] 97.0 fL Normal 81.0-99.0 [facility] [place] Comment on above: Performed By: #### BNP, CMP, LIPA #### [facility] [address] [place] [address] Dr. Sam Balderrama MONO # 0.8 103/ul Normal 0.3-0.8 [facility] [place] Comment on above: Performed By: #### BNP, CMP, LIPA #### [facility] [address] [place] [address] Dr. Sam Balderrama Monocytes/100 WBC (Bld) 9.8 % Normal 1.7-12.0 [facility] [place] Comment on above: Performed By: #### BNP, CMP, LIPA #### [facility] [address] [place] [address] Dr. Sam Balderrama NEUT # 4.1 103/ul Normal 1.4-6.5 [facility] [place] Comment on above: Performed By: #### BNP, CMP, LIPA #### [facility] [address] [place] [address] Dr. Sam Balderrama Neutrophils/100 WBC (Bld) 51.7 % Normal 43.0-75.0 [facility] [place] Comment on above: Performed By: #### BNP, CMP, LIPA #### [facility] [address] [place] [address] Dr. Sam Balderrama Platelet mean volume (Bld) [Entitic vol] 9.6 fL Normal 9.5-13.5 [facility] [place] Comment on above: Performed By: #### BNP, CMP, LIPA #### [facility] [address] [place] [address] Dr. Sam Balderrama PLT 281 103/ul Normal 150-450 [facility] Comment on above: Performed By: #### BNP, CMP, LIPA #### [facility] [address] [place] [address] Dr. Sam Balderrama RBC 3.68 106/ul Critically low 4.20-5.40 [facility] [place] Comment on above: Performed By: #### BNP, CMP, LIPA #### [facility] [address] [place] [address] Dr. Sam Balderrama WBC 7.9 103/ul Normal 4.0-11.0 [facility] [place] Comment on above: Performed By: #### BNP, CMP, LIPA #### [facility] [address] [place] [address] Dr. Sam Balderrama LIPASEon 01-06-2022 Lipase [Catalytic activity/Vol] 219.0 U/L Normal 73.0-393.0 [facility] [place] Comment on above: Performed By: #### BNP, CMP, LIPA #### [facility] [address] [place] [address] Dr. Sam Balderrama OCC BLD IMMUNOASSAYon 2021 OCCULT BLOOD Negative Normal NEGATIVE [facility] [place] Comment on above: Performed By: #### A1C #### [facility] [address] [place] [address] Dr. Sam Balderrama POINT OF CARE GLUCOSEon 12-10 Glucose [Mass/Vol] 162 mg/dL Critically high 74-106 [facility] [place] Comment on above: Performed By: #### CVDTBH #### [facility] [address] [place] [address] Dr. Sam Balderrama Glucose [Mass/Vol] 103 mg/dL Normal 74-106 [facility] Comment on above: Performed By: #### BNP, CMP, LIPA #### [facility] [address] [place] [address] Dr. Sam Balderrama Glucose [Mass/Vol] 137 mg/dL Critically high 74-106 [facility] Comment on above: Performed By: #### BNP, CMP, LIPA #### [facility] [address] [place] [address] Dr. Sam Balderrama PROF 14(COMP METB)on 022 Albumin [Mass/Vol] 2.8 g/dL Critically low 3.4-5.0 [facility] [place] Comment on above: Performed By: #### BNP, CMP, LIPA #### [facility] [address] [address] [address] Sam Balderrama Albumin/Globulin [Mass ratio] 1.1 {ratio} Normal [facility] [place] Comment on above: Performed By: #### BNP, CMP, LIPA #### [facility] [address] [address] [address] Sam Balderrama ALP [Catalytic activity/Vol] 51 U/L Normal 46-116 [facility] Comment on above: Performed By: #### BNP, CMP, LIPA #### [facility] [address] [address] [address] Sam Balderrama ALT [Catalytic activity/Vol] 32 U/L Normal 14-59 [facility] [place] Comment on above: Performed By: #### BNP, CMP, LIPA #### [facility] [address] [place] [address] Dr. Sam Balderrama Anion gap [Moles/Vol] 10.6 mmol/L Normal [facility] [place] Comment on above: Performed By: #### BNP, CMP, LIPA #### [facility] [address] [address] [address] Sam Balderrama AST [Catalytic activity/Vol] 16 U/L Normal 15-37 [facility] [place] Comment on above: Performed By: #### BNP, CMP, LIPA #### [facility] [address] [address] [address] Sam Balderrama Bilirubin [Mass/Vol] 0.5 mg/dL Normal 0.2-1.0 [facility] [place] Comment on above: Performed By: #### BNP, CMP, LIPA #### [facility] [address] [address] [address] Sam Balderrama Calcium [Mass/Vol] 8.4 mg/dL Critically low 8.5-10.1 [facility] Comment on above: Performed By: #### BNP, CMP, LIPA #### [facility] [address] [address] [address] Sam Balderrama Chloride [Moles/Vol] 105 mmol/L Normal 98-107 [facility] Comment on above: Performed By: #### BNP, CMP, LIPA #### [facility] [address] [address] [address] Sam Balderrama CO2 [Moles/Vol] 28.7 mmol/L Normal 21.0-32.0 [facility] [place] Comment on above: Performed By: #### BNP, CMP, LIPA #### [facility] [address] [address] [address] Sam Balderrama Creatinine [Mass/Vol] 0.94 mg/dL Normal 0.55-1.02 [facility] [place] Comment on above: Performed By: #### BNP, CMP, LIPA #### [facility] [address] [address] [address] Sam Balderrama EGFR-AF BAHRAINI >60 Normal >=60 [facility] [place] Comment on above: Performed By: #### BNP, CMP, LIPA #### [facility] [address] [address] [address] Sam Balderrama EGFR-NON AF BAHRAINI 58 mL/min/1.73m2 Critically low >=60 [facility] [place] Comment on above: Performed By: #### BNP, CMP, LIPA #### [facility] [address] [address] [address] Sam Balderrama Globulin (S) [Mass/Vol] 2.6 g/dL Normal [facility] [place] Comment on above: Performed By: #### BNP, CMP, LIPA #### [facility] [address] [address] [address] Sam Balderrama Glucose [Mass/Vol] 160 mg/dL Critically high 74-106 [facility] [place] Comment on above: Performed By: #### BNP, CMP, LIPA #### [facility] [address] [address] [address] Sam Balderrama Potassium [Moles/Vol] 4.3 mmol/L Normal 3.5-5.1 [facility] [place] Comment on above: Performed By: #### BNP, CMP, LIPA #### [facility] [address] [address] [address] Sam Balderrama Protein [Mass/Vol] 5.4 g/dL Critically low 6.4-8.2 [facility] [place] Comment on above: Performed By: #### BNP, CMP, LIPA #### [facility] [address] [place] [address] Dr. Sam Balderrama Sodium [Moles/Vol] 140 mmol/L Normal 136-145 [facility] Comment on above: Performed By: #### BNP, CMP, LIPA #### [facility] [address] [place] [address] Dr. Sam Balderrama Urea nitrogen [Mass/Vol] 16.0 mg/dL Normal 7.0-18.0 [facility] Comment on above: Performed By: #### BNP, CMP, LIPA #### [facility] [address] [place] [address] Dr. Sam Balderrama Urea nitrogen/Creatin ine [Mass ratio] 17.0 mg/mg Normal [facility] [place] Comment on above: Performed By: #### BNP, CMP, LIPA #### [facility] [address] [place] [address] Dr. Sam Balderrama BNPon 01-05-2022 Natriuretic peptide B (Bld) [Mass/Vol] 297.0 pg/mL Normal <=1,800.0 [facility] [place] Comment on above: Performed By: #### BNP, CMP, LIPA #### [facility] [address] [place] [address] Dr. Sam Balderrama CBC AUTO DIFFon 01-05-2022 BASO # 0.1 103/ul Normal 0.0-0.1 [facility] Comment on above: Performed By: #### CVDTBH #### [facility] [address] [place] [address] Dr. Sam Balderrama Basophils/100 WBC (Bld) 0.7 % Normal 0.2-2.0 [facility] Comment on above: Performed By: #### CVDTBH #### [facility] [address] [place] [address] Dr. Sam Balderrama EO # 0.3 103/ul Normal 0.0-0.7 [facility] Comment on above: Performed By: #### CVDTBH #### [facility] [address] [address] [address] Sam Balderrama Eosinophils/100 WBC (Bld) 2.6 % Normal 0.9-7.0 [facility] [place] Comment on above: Performed By: #### CVDTBH #### [facility] [address] [place] [address] Dr. Sam Balderrama Erythrocyte distribution width (RBC) [Ratio] 12.7 % Normal 11.0-15.0 [facility] [place] Comment on above: Performed By: #### CVDTBH #### [facility] [address] [place] [address] Dr. Sam Balderrama Hematocrit (Bld) [Volume fraction] 36.7 % Normal 36.0-48.0 [facility] [place] Comment on above: Performed By: #### CVDTBH #### [facility] [address] [place] [address] Dr. Sam Balderrama Hemoglobin (Bld) [Mass/Vol] 11.9 g/dL Critically low 12.0-16.0 [facility] [place] Comment on above: Performed By: #### CVDTBH #### [facility] [address] [place] [address] Dr. Sam Balderrama IG # 0.42 10e3/ul Critically high 0.00-0.03 [facility] [place] Comment on above: Performed By: #### CVDTBH #### [facility] [address] [place] [address] Dr. Sam Balderrama IG % 3.8 % Critically high 0.0-0.5 [facility] Comment on above: Performed By: #### CVDTBH #### [facility] [address] [place] [address] Dr. Sam Balderrama LYMPH # 3.1 103/ul Normal 1.2-3.8 [facility] [place] Comment on above: Performed By: #### CVDTBH #### [facility] [address] [place] [address] Dr. Sam Balderrama Lymphocytes/100 WBC (Bld) 27.7 % Normal 20.5-60.0 [facility] [place] Comment on above: Performed By: #### CVDTBH #### [facility] [address] [place] [address] Dr. Sam Balderrama MANUAL DIFF REQ NO Normal [facility] [place] Comment on above: Performed By: #### CVDTBH #### [facility] [address] [place] [address] Dr. Sam Balderrama MCH (RBC) [Entitic mass] 30.5 pg Normal 26.7-34.0 [facility] [place] Comment on above: Performed By: #### CVDTBH #### [facility] [address] [place] [address] Dr. Sam Balderrama MCHC (RBC) [Mass/Vol] 32.4 g/dL Normal 29.9-35.2 [facility] Comment on above: Performed By: #### CVDTBH #### [facility] [address] [place] [address] Dr. Sam Balderrama MCV (RBC) [Entitic vol] 94.1 fL Normal 81.0-99.0 [facility] [place] Comment on above: Performed By: #### CVDTBH #### [facility] [address] [place] [address] Dr. Sam Balderrama MONO # 1.1 103/ul Critically high 0.3-0.8 [facility] [place] Comment on above: Performed By: #### CVDTBH #### [facility] [address] [place] [address] Dr. Sam Balderrama Monocytes/100 WBC (Bld) 9.5 % Normal 1.7-12.0 [facility] [place] Comment on above: Performed By: #### CVDTBH #### [facility] [address] [place] [address] Dr. Sam Balderrama NEUT # 6.2 103/ul Normal 1.4-6.5 [facility] [place] Comment on above: Performed By: #### CVDTBH #### [facility] [address] [place] [address] Dr. Sam Balderrama Neutrophils/100 WBC (Bld) 55.7 % Normal 43.0-75.0 [facility] [place] Comment on above: Performed By: #### CVDTBH #### [facility] [address] [place] [address] Dr. Sam Balderrama Platelet mean volume (Bld) [Entitic vol] 9.4 fL Critically low 9.5-13.5 [facility] [place] Comment on above: Performed By: #### CVDTBH #### [facility] [address] [place] [address] Dr. Sam Balderrama PLT 308 103/ul Normal 150-450 [facility] Comment on above: Performed By: #### CVDTBH #### [facility] [address] [address] [address] Sam Balderrama RBC 3.90 106/ul Critically low 4.20-5.40 [facility] [place] Comment on above: Performed By: #### CVDTBH #### [facility] [address] [place] [address] Dr. Sam Balderrama WBC 11.1 103/ul Critically high 4.0-11.0 [facility] [place] Comment on above: Performed By: #### CVDTBH #### [facility] [address] [place] [address] Dr. Sam Balderrama Covid-19 PCR ([facility])on 12-10 SARS-CoV-2 (COVID-19) RNA MANNY+probe Ql (Unsp spec) Detected Critically abnormal NOT DETECTED [facility] Comment on above: Result Comment: This test is not yet john roved or cleared by the [place] FDA. When there are no FDA-approved or cleared tests available, and other criteria are met, FDA can make tests available under an emergency access mechanism called an Emergency Use Authorization (EUA). The EUA for this test is supported by the [employer] of Health and Human Service's declaration that [...] longer be used). Performed By: #### B MODERN LANGUAGES PROFESSOR, CMP, LIPA #### [facility] [address] [place] [address] Dr. Sam Balderrama LACTATE/LACTIC ACIDon 2021 Lactate [Moles/Vol] 1.6 mmol/L Normal 0.4-1.9 [facility] Comment on above: Performed By: #### A1C #### [facility] [address] [place] [address] Dr. Sam Balderrama Lactate [Moles/Vol] 2.2 mmol/L Critically high 0.4-1.9 [facility] [place] Comment on above: Performed By: #### BNP, CMP, LIPA #### [facility] [address] [place] [address] Dr. Sam Balderrama LIPASEon 01-05-2022 Lipase [Catalytic activity/Vol] 110.0 U/L Normal 73.0-393.0 [facility] Comment on above: Performed By: #### BNP, CMP, LIPA #### [facility] [address] [place] [address] Dr. Sam Balderrama POINT OF CARE GLUCOSEon 12-10 Glucose [Mass/Vol] 220 mg/dL Critically high 74-106 [facility] Comment on above: Performed By: #### CVDTBH #### [facility] [address] [place] [address] Dr. Sam Balderrama Glucose [Mass/Vol] 136 mg/dL Critically high 74-106 [facility] Comment on above: Performed By: #### CVDTBH #### [facility] [address] [place] [address] Dr. Sam Balderrama Glucose [Mass/Vol] 156 mg/dL Critically high 74-106 [facility] [place] Comment on above: Performed By: #### BNP, CMP, LIPA #### [facility] [address] [place] [address] Dr. Sam Balderrama PROF 14(COMP METB)on 022 Albumin [Mass/Vol] 2.8 g/dL Critically low 3.4-5.0 [facility] Comment on above: Performed By: #### BNP, CMP, LIPA #### [facility] [address] [place] [address] Dr. Sam Balderrama Albumin/Globulin [Mass ratio] 1.1 {ratio} Normal [facility] Comment on above: Performed By: #### BNP, CMP, LIPA #### [facility] [address] [address] [address] Sam Balderrama ALP [Catalytic activity/Vol] 57 U/L Normal 46-116 [facility] Comment on above: Performed By: #### BNP, CMP, LIPA #### [facility] [address] [address] [address] Sam Balderrama ALT [Catalytic activity/Vol] 38 U/L Normal 14-59 [facility] Comment on above: Performed By: #### BNP, CMP, LIPA #### [facility] [address] [address] [address] Sam Balderrama Anion gap [Moles/Vol] 10.2 mmol/L Normal [facility] Comment on above: Performed By: #### BNP, CMP, LIPA #### [facility] [address] [address] [address] Sam Balderrama AST [Catalytic activity/Vol] 19 U/L Normal 15-37 [facility] Comment on above: Performed By: #### BNP, CMP, LIPA #### [facility] [address] [address] [address] Sam Balderrama Bilirubin [Mass/Vol] 0.9 mg/dL Normal 0.2-1.0 [facility] Comment on above: Performed By: #### BNP, CMP, LIPA #### [facility] [address] [place] [address] Dr. Sam Balderrama Calcium [Mass/Vol] 8.3 mg/dL Critically low 8.5-10.1 [facility] Comment on above: Performed By: #### BNP, CMP, LIPA #### [facility] [address] [address] [address] Sam Balderrama Chloride [Moles/Vol] 102 mmol/L Normal 98-107 [facility] Comment on above: Performed By: #### BNP, CMP, LIPA #### [facility] [address] [address] [address] Sam Balderrama CO2 [Moles/Vol] 29.1 mmol/L Normal 21.0-32.0 [facility] [place] Comment on above: Performed By: #### BNP, CMP, LIPA #### [facility] [address] [address] [address] Sam Balderrama Creatinine [Mass/Vol] 0.88 mg/dL Normal 0.55-1.02 [facility] Comment on above: Performed By: #### BNP, CMP, LIPA #### [facility] [address] [address] [address] Sam Balderrama EGFR-AF BAHRAINI >60 Normal >=60 [facility] Comment on above: Performed By: #### BNP, CMP, LIPA #### [facility] [address] [address] [address] Sam Balderrama EGFR-NON AF BAHRAINI >60 Normal >=60 [facility] Comment on above: Performed By: #### BNP, CMP, LIPA #### [facility] [address] [address] [address] Sam Balderrama Globulin (S) [Mass/Vol] 2.6 g/dL Normal [facility] Comment on above: Performed By: #### BNP, CMP, LIPA #### [facility] [address] [address] [address] Sam Balderrama Glucose [Mass/Vol] 160 mg/dL Critically high 74-106 [facility] Comment on above: Performed By: #### BNP, CMP, LIPA #### [facility] [address] [address] [address] Sam Balderrama Potassium [Moles/Vol] 3.3 mmol/L Critically low 3.5-5.1 [facility] Comment on above: Performed By: #### BNP, CMP, LIPA #### [facility] [address] [address] [address] Sam Balderrama Protein [Mass/Vol] 5.4 g/dL Critically low 6.4-8.2 [facility] Comment on above: Performed By: #### BNP, CMP, LIPA #### [facility] [address] [address] [address] Sam Balderrama Sodium [Moles/Vol] 138 mmol/L Normal 136-145 [facility] [place] Comment on above: Performed By: #### BNP, CMP, LIPA #### [facility] [address] [address] [address] Sam Balderrama Urea nitrogen [Mass/Vol] 18.0 mg/dL Normal 7.0-18.0 [facility] [place] Comment on above: Performed By: #### BNP, CMP, LIPA #### [facility] [address] [address] [address] Sam Balderrama Urea nitrogen/Creatin ine [Mass ratio] 20.5 mg/mg Normal [facility] [place] Comment on above: Performed By: #### BNP, CMP, LIPA #### [facility] [address] [place] [address] Dr. Sam Balderrama CARDIAC LINDA ADMITon 022 CK [Catalytic activity/Vol] 73 U/L Normal 26-192 [facility] [place] Comment on above: Performed By: #### BNP, CMP, LIPA #### [facility] [address] [address] [address] Sam Balderrama CK.MB [Mass/Vol] 1.78 ng/mL Normal <=3.60 [facility] Comment on above: Performed By: #### BNP, CMP, LIPA #### [facility] [address] [place] [address] Dr. Sam Balderrama HSTROP 36.5 pg/mL Normal 4.0-51.3 [facility] Comment on above: Result Comment: CUT-OFF POINTS HAVE BEEN ESTABLISHED BASED ON THE FOURTH UNIVERSAL DEFINITIONS OF MYOCARDIAL INFARCTION. THE UPPER REFERENCE LIMIT (URL) OF TROPONIN, DEFINED THE 99TH PERCENTILE OF cTnI DISTRIBUTION IN A REFERENCE POPULATION, HAS BEEN CONFIRMED THE DECISION THRESHOLD FOR VA DIAGNOSIS. Performed By: #### B MODERN LANGUAGES PROFESSOR, CMP, LIPA #### [facility] [address] [address] [address] Sam Balderrama JAZMYNE 42 ng/mL Normal 9-82 [facility] Comment on above: Performed By: #### BNP, CMP, LIPA #### [facility] [address] [address] [address] Sam Balderrama CBC AUTO DIFFon 01-04-2022 BASO # 0.0 103/ul Normal 0.0-0.1 [facility] [place] Comment on above: Performed By: #### CBC #### [facility] [address] [address] [address] Sam Balderrama Basophils/100 WBC (Bld) 0.1 % Critically low 0.2-2.0 [facility] [place] Comment on above: Performed By: #### CBC #### [facility] [address] [address] [address] Sam Balderrama EO # 0.3 103/ul Normal 0.0-0.7 [facility] [place] Comment on above: Performed By: #### CBC #### [facility] [address] [address] [address] Sam Balderrama Eosinophils/100 WBC (Bld) 1.7 % Normal 0.9-7.0 [facility] [place] Comment on above: Performed By: #### CBC #### [facility] [address] [address] [address] Sam Balderrama Erythrocyte distribution width (RBC) [Ratio] 12.6 % Normal 11.0-15.0 [facility] [place] Comment on above: Performed By: #### CBC #### [facility] [address] [address] [address] Sam Balderrama Hematocrit (Bld) [Volume fraction] 43.2 % Normal 36.0-48.0 [facility] [place] Comment on above: Performed By: #### CBC #### [facility] [address] [address] [address] Sam Badlerrama Hemoglobin (Bld) [Mass/Vol] 14.3 g/dL Normal 12.0-16.0 [facility] [place] Comment on above: Performed By: #### CBC #### [facility] [address] [address] [address] Sam Balderrama IG # 0.85 10e3/ul Critically high 0.00-0.03 [facility] [place] Comment on above: Performed By: #### CBC #### [facility] [address] [place] [address] Dr. Sam Balderrama IG % 5.3 % Critically high 0.0-0.5 [facility] [place] Comment on above: Performed By: #### CBC #### [facility] [address] [place] [address] Dr. Sam Balderrama LYMPH # 2.6 103/ul Normal 1.2-3.8 [facility] [place] Comment on above: Performed By: #### CBC #### [facility] [address] [place] [address] Dr. Sam Balderrama Lymphocytes/100 WBC (Bld) 16.4 % Critically low 20.5-60.0 [facility] Comment on above: Performed By: #### CBC #### [facility] [address] [place] [address] Dr. Sam Balderrama MANUAL DIFF REQ NO Normal [facility] Comment on above: Performed By: #### CBC #### [facility] [address] [place] [address] Dr. Sam Balderrama MCH (RBC) [Entitic mass] 31.0 pg Normal 26.7-34.0 [facility] Comment on above: Performed By: #### CBC #### [facility] [address] [place] [address] Dr. Sam Balderrama MCHC (RBC) [Mass/Vol] 33.1 g/dL Normal 29.9-35.2 [facility] Comment on above: Performed By: #### CBC #### [facility] [address] [place] [address] Dr. Sam Balderrama MCV (RBC) [Entitic vol] 93.7 fL Normal 81.0-99.0 [facility] Comment on above: Performed By: #### CBC #### [facility] [address] [place] [address] Dr. Sam Balderrama MONO # 1.2 103/ul Critically high 0.3-0.8 [facility] Comment on above: Performed By: #### CBC #### [facility] [address] [place] [address] Dr. Sam Balderrama Monocytes/100 WBC (Bld) 7.7 % Normal 1.7-12.0 [facility] [place] Comment on above: Performed By: #### CBC #### [facility] [address] [place] [address] Dr. Sam Balderrama NEUT # 11.0 103/ul Critically high 1.4-6.5 [facility] Comment on above: Performed By: #### CBC #### [facility] [address] [place] [address] Dr. Sam Balderrama Neutrophils/100 WBC (Bld) 68.8 % Normal 43.0-75.0 [facility] Comment on above: Performed By: #### CBC #### [facility] [address] [place] [address] Dr. Sam Balderrama Platelet mean volume (Bld) [Entitic vol] 9.9 fL Normal 9.5-13.5 [facility] Comment on above: Performed By: #### CBC #### [facility] [address] [place] [address] Dr. Sam Balderrama PLT 337 103/ul Normal 150-450 [facility] Comment on above: Performed By: #### CBC #### [facility] [address] [place] [address] Dr. Sam Balderrama RBC 4.61 106/ul Normal 4.20-5.40 [facility] Comment on above: Performed By: #### CBC #### [facility] [address] [place] [address] Dr. Sam Balderrama WBC 16.0 103/ul Critically high 4.0-11.0 [facility] Comment on above: Performed By: #### CBC #### [facility] [address] [place] [address] Dr. Sam Balderrama CULTURE URINEon 01-04-2022 CULTURE URINE Culture Observations : HEAVY GROWTH OF MIXED GENITAL ALEJANDRO. NO POTENTIAL PATHOGENS SEEN. Normal [facility] Comment on above: Performed By: #### BNP, CMP, LIPA #### [facility] [address] [place] [address] Dr. Sam Balderrama ER URINE PROFILEon 2 Bilirubin Ql (U) Negative Normal NEGATIVE [facility] Comment on above: Performed By: #### A1C #### [facility] [address] [place] [address] Dr. Sam Balderrama Clarity (U) CLEAR Normal CLEAR [facility] Comment on above: Performed By: #### A1C #### [facility] [address] [place] [address] Dr. Sam Balderrama Color (U) LT. YELLOW Normal YELLOW [facility] Comment on above: Performed By: #### A1C #### [facility] [address] [place] [address] Dr. Sam Balderrama ERUAHD A micrscopic examina tion will be performed if indicated. Normal [facility] Comment on above: Performed By: #### A1C #### [facility] [address] [place] [address] Dr. Sam Balderrama Glucose Ql (U) Negative Normal NEGATIVE [facility] Comment on above: Performed By: #### A1C #### [facility] [address] [place] [address] Dr. Sam Balderrama Hemoglobin Ql (U) Negative Normal NEGATIVE [facility] [place] Comment on above: Performed By: #### A1C #### [facility] [address] [place] [address] Dr. Sam Balderrama Ketones Ql (U) Negative Normal NEGATIVE [facility] Comment on above: Performed By: #### A1C #### [facility] [address] [place] [address] Dr. Sam Balderrama LEUKOCYTES TRACE Abnormal NEGATIVE [facility] Comment on above: Performed By: #### A1C #### [facility] [address] [place] [address] Dr. Sam Balderrama Nitrite Ql (U) Negative Normal NEGATIVE [facility] Comment on above: Performed By: #### A1C #### [facility] [address] [place] [address] Dr. Sam Balderrama pH (U) 6.0 [pH] Normal 5-9 [facility] Comment on above: Performed By: #### A1C #### [facility] [address] [place] [address] Dr. Sam Balderrama SPEC GRAVITY <=1.005 Abnormal 1.005-<=1.0 25 [facility] [facility] [place] Comment on above: Performed By: #### A1C #### [facility] [address] [place] [address] Dr. Sam Balderrama UA PROTEIN Negative Normal NEGATIVE/ TRACE [facility] Comment on above: Performed By: #### A1C #### [facility] [address] [place] [address] Dr. Sam Balderrama UR MICRO IND INDICATED Normal [facility] Comment on above: Performed By: #### A1C #### [facility] [address] [place] [address] Dr. Sam Balderrama Urobilinogen Qn (U) 0.2 {Bruna'U}/dL Normal 0.2 - 1.0 [facility] [place] Comment on above: Performed By: #### A1C #### [facility] [address] [place] [address] Dr. Sam Balderrama GI PANEL (PCR)on 01-04-2022 Adenovirus F 40/41 Not detected Normal NOT DETECTED [facility] Comment on above: Performed By: #### CVDTBH #### [facility] [address] [place] [address] Dr. Sam Balderrama Astrovirus Not detected Normal NOT DETECTED [facility] Comment on above: Performed By: #### CVDTBH #### [facility] [address] [place] [address] Dr. Sam Balderrama C. Diff toxin A/B Detected Critically abnormal NOT DETECTED [facility] Comment on above: Performed By: #### CVDTBH #### [facility] [address] [place] [address] Dr. Sam Balderrama Campylobacter Not detected Normal NOT DETECTED [facility] Comment on above: Performed By: #### CVDTBH #### [facility] [address] [place] [address] Dr. Sam Balderrama Cryptosporidium Not detected Normal NOT DETECTED [facility] Comment on above: Performed By: #### CVDTBH #### [facility] [address] [place] [address] Dr. Sam Balderrama Cyclos. Cayetanensis Not detected Normal NOT DETECTED [facility] Comment on above: Performed By: #### CVDTBH #### [facility] [address] [place] [address] Dr. Sam Balderrama E. Coli O157 Not Applicable Normal Not Applicable [facility] Comment on above: Performed By: #### CVDTBH #### [facility] [address] [place] [address] Dr. Sam Balderrama E. histolytica Not detected Normal NOT DETECTED [facility] Comment on above: Performed By: #### CVDTBH #### [facility] [address] [place] [address] Dr. Sam Balderrama EAEC Not detected Normal NOT DETECTED [facility] Comment on above: Performed By: #### CVDTBH #### [facility] [address] [place] [address] Dr. Sam Balderrama EIEC Not detected Normal NOT DETECTED [facility] Comment on above: Performed By: #### CVDTBH #### [facility] [address] [place] [address] Dr. Sam Balderrama EPEC Not detected Normal NOT DETECTED [facility] Comment on above: Performed By: #### CVDTBH #### [facility] [address] [place] [address] Dr. Sam Balderrama ETEC Not detected Normal NOT DETECTED [facility] Comment on above: Performed By: #### CVDTBH #### [facility] [address] [place] [address] Dr. Sam Balderrama G. Lamblia Not detected Normal NOT DETECTED [facility] Comment on above: Performed By: #### CVDTBH #### [facility] [address] [place] [address] Dr. Sam ZACARIASANEL CONTROLS PASSED Normal [facility] Comment on above: Performed By: #### CVDTBH #### [facility] [address] [place] [address] DrEzio [facility] HEADER GI PANEL BACTERIA Normal T [facility] Comment on above: Performed By: #### CVDTBH #### [facility] [address] [place] [address] Dr. Sam FUNES ECOLI GI PANEL DIARRHEAGEN IC E.COLI / SHIGELLA Normal [facility] [place] Comment on above: Performed By: #### CVDTBH #### [facility] [address] [place] [address] Dr. Sam FUNES INFO SEE BELOW Normal [facility] Comment on above: Result Comment: EAEC- Enteroaggregative E. Coli EPEC- Enteropathogenic E. Coli ETEC- Enterotoxigenic E. Coli lt/st STEC- Shigella-like toxin-producing E. Coli stx1/stx2 EIEC- Shigella/Enteroinvasive E. Coli Performed By: #### C VDTBH #### [facility] [address] [place] [address] Dr. Sam FUNES PARASITES GI PANEL PARASITES Normal [facility] Comment on above: Performed By: #### CVDTBH #### [facility] [address] [place] [address] Dr. Sam FUNES VIRUS GI PANEL VIRUSES Normal [facility] Comment on above: Performed By: #### CVDTBH #### [facility] [address] [place] [address] Dr. Sam Balderrama Norovirus GI/GII Not detected Normal NOT DETECTED [facility] Comment on above: Performed By: #### CVDTBH #### [facility] [address] [place] [address] Dr. Sam Balderrama P. Shigelloides Not detected Normal NOT DETECTED [facility] Comment on above: Performed By: #### CVDTBH #### [facility] [address] [place] [address] Dr. Sam Balderrama Rotavirus A Not detected Normal NOT DETECTED [facility] Comment on above: Performed By: #### CVDTBH #### [facility] [address] [place] [address] Dr. Sam Balderrama Salmonella Not detected Normal NOT DETECTED [facility] Comment on above: Performed By: #### CVDTBH #### [facility] [address] [place] [address] Dr. Sam Balderrama Sapovirus Not detected Normal NOT DETECTED [facility] Comment on above: Performed By: #### CVDTBH #### [facility] [address] [place] [address] Dr. Sam Balderrama STEC Not detected Normal NOT DETECTED [facility] Comment on above: Performed By: #### CVDTBH #### [facility] [address] [place] [address] Dr. Sam Balderrama Vibrio Not detected Normal NOT DETECTED [facility] Comment on above: Performed By: #### CVDTBH #### [facility] [address] [place] [address] Dr. Sam Balderrama Vibrio Cholera Not detected Normal NOT DETECTED [facility] Comment on above: Performed By: #### CVDTBH #### [facility] [address] [place] [address] Dr. Sam Balderrama Y. Enterocolitica Not detected Normal NOT DETECTED [facility] Comment on above: Performed By: #### CVDTBH #### [facility] [address] [place] [address] Dr. Sam Balderrama LIPASEon 01-04-2022 Lipase [Catalytic activity/Vol] 799.0 U/L Critically high 73.0-393.0 [facility] [place] Comment on above: Performed By: #### BNP, CMP, LIPA #### [facility] [address] [place] [address] Dr. Sam Balderrama PROF 14(COMP METB)on 022 Albumin [Mass/Vol] 3.8 g/dL Normal 3.4-5.0 [facility] [place] Comment on above: Performed By: #### BNP, CMP, LIPA #### [facility] [address] [place] [address] Dr. Sam Balderrama Albumin/Globulin [Mass ratio] 1.2 {ratio} Normal [facility] Comment on above: Performed By: #### BNP, CMP, LIPA #### [facility] [address] [address] [address] Sam Balderrama ALP [Catalytic activity/Vol] 72 U/L Normal 46-116 [facility] Comment on above: Performed By: #### BNP, CMP, LIPA #### [facility] [address] [address] [address] Sam Balderrama ALT [Catalytic activity/Vol] 49 U/L Normal 14-59 [facility] Comment on above: Performed By: #### BNP, CMP, LIPA #### [facility] [address] [address] [address] Sam Balderrama Anion gap [Moles/Vol] 13.2 mmol/L Normal [facility] [place] Comment on above: Performed By: #### BNP, CMP, LIPA #### [facility] [address] [address] [address] Sam Balderrama AST [Catalytic activity/Vol] 24 U/L Normal 15-37 [facility] Comment on above: Performed By: #### BNP, CMP, LIPA #### [facility] [address] [address] [address] Sam Balderrama Bilirubin [Mass/Vol] 0.9 mg/dL Normal 0.2-1.0 [facility] Comment on above: Performed By: #### BNP, CMP, LIPA #### [facility] [address] [address] [address] Sam Balderrama Calcium [Mass/Vol] 9.2 mg/dL Normal 8.5-10.1 [facility] Comment on above: Performed By: #### BNP, CMP, LIPA #### [facility] [address] [address] [address] Sam Balderrama Chloride [Moles/Vol] 95 mmol/L Critically low 98-107 [facility] Comment on above: Performed By: #### BNP, CMP, LIPA #### [facility] [address] [address] [address] Sam Balderrama CO2 [Moles/Vol] 28.9 mmol/L Normal 21.0-32.0 [facility] Comment on above: Performed By: #### BNP, CMP, LIPA #### [facility] [address] [address] [address] aSm Balderrama Creatinine [Mass/Vol] 1.23 mg/dL Critically high 0.55-1.02 [facility] [place] Comment on above: Performed By: #### BNP, CMP, LIPA #### [facility] [address] [address] [address] Sam Balderrama EGFR-AF BAHRAINI 51 mL/min/1.73m2 Critically low >=60 [facility] Comment on above: Performed By: #### BNP, CMP, LIPA #### [facility] [address] [address] [address] Sam Balderrama EGFR-NON AF BAHRAINI 42 mL/min/1.73m2 Critically low >=60 [facility] [place] Comment on above: Performed By: #### BNP, CMP, LIPA #### [facility] [address] [address] [address] Sam Balderrama Globulin (S) [Mass/Vol] 3.2 g/dL Normal [facility] Comment on above: Performed By: #### BNP, CMP, LIPA #### [facility] [address] [address] [address] Sam Balderrama Glucose [Mass/Vol] 204 mg/dL Critically high 74-106 [facility] [place] Comment on above: Performed By: #### BNP, CMP, LIPA #### [facility] [address] [address] [address] Sam Balderrama Potassium [Moles/Vol] 4.1 mmol/L Normal 3.5-5.1 [facility] Comment on above: Performed By: #### BNP, CMP, LIPA #### [facility] [address] [address] [address] Sam Balderrama Protein [Mass/Vol] 7.0 g/dL Normal 6.4-8.2 [facility] Comment on above: Performed By: #### BNP, CMP, LIPA #### [facility] [address] [address] [address] Sam Balderrama Sodium [Moles/Vol] 133 mmol/L Critically low 136-145 [facility] Comment on above: Performed By: #### BNP, CMP, LIPA #### [facility] [address] [place] [address] Dr. Sam Balderrama Urea nitrogen [Mass/Vol] 32.0 mg/dL Critically high 7.0-18.0 [facility] Comment on above: Performed By: #### BNP, CMP, LIPA #### [facility] [address] [place] [address] Dr. Sam Balderrama Urea nitrogen/Creatin ine [Mass ratio] 26.0 mg/mg Normal [facility] Comment on above: Performed By: #### BNP, CMP, LIPA #### [facility] [address] [place] [address] Dr. Sam Balderrama URINE MICROSCOPIC ONLYon BACTERIA TRACE Abnormal NONE SEEN [facility] Comment on above: Performed By: #### A1C #### [facility] [address] [place] [address] Dr. Sam Balderrama Bacteria identified Cx Nom (U) INDICATED Normal [facility] Comment on above: Performed By: #### A1C #### [facility] [address] [place] [address] Dr. Sam Balderrama CAST SEEN Abnormal NONE SEEN [facility] [place] Comment on above: Performed By: #### A1C #### [facility] [address] [place] [address] Dr. Sam Balderrama Crystals LM Nom (Urine sed) NONE SEEN Normal NONE SEEN [facility] Comment on above: Performed By: #### A1C #### [facility] [address] [place] [address] Dr. Sam Balderrama Epithelial cells LM Ql (Urine sed) MODERATE Abnormal NONE SEEN /RARE [facility] Comment on above: Performed By: #### A1C #### [facility] [address] [place] [address] Dr. Sam Balderrama MUCOUS NONE SEEN Normal NONE SEEN [facility] Comment on above: Performed By: #### A1C #### [facility] [address] [place] [address] Dr. Sam Balderrama RBC 0-2 Normal 0-2 [facility] Comment on above: Performed By: #### A1C #### [facility] [address] [place] [address] Dr. Sam Balderrama WBC 2-5 Abnormal NONE SEEN [facility] Comment on above: Performed By: #### A1C #### [facility] [address] [place] [address] Dr. Sam Balderrama XR CHEST 1 Von [...] CELIA WALTON Date: 2022-01-04 21:03 Normal [facility] BNPon 12-26-2021 Natriuretic peptide B (Bld) [Mass/Vol] 266.0 pg/mL Normal <=1,800.0 [facility] Comment on above: Performed By: #### BMP, HSTROPN, BNP ### # [facility] [address] [place] [address] Dr. Sam Balderrama CBC AUTO DIFFon 12-26-2021 BASO # 0.0 103/ul Normal 0.0-0.1 [facility] Comment on above: Performed By: #### CBC #### [facility] [address] [place] [address] Dr. Sam Balderrama Basophils/100 WBC (Bld) 0.4 % Normal 0.2-2.0 [facility] Comment on above: Performed By: #### CBC #### [facility] [address] [place] [address] Dr. Sam Balderrama EO # 0.0 103/ul Normal 0.0-0.7 [facility] Comment on above: Performed By: #### CBC #### [facility] [address] [address] [address] Sam Balderrama Eosinophils/100 WBC (Bld) 0.0 % Critically low 0.9-7.0 [facility] [place] Comment on above: Performed By: #### CBC #### [facility] [address] [place] [address] Dr. Sam Balderrama Erythrocyte distribution width (RBC) [Ratio] 12.5 % Normal 11.0-15.0 [facility] [place] Comment on above: Performed By: #### CBC #### [facility] [address] [place] [address] Dr. Sam Balderrama Hematocrit (Bld) [Volume fraction] 38.0 % Normal 36.0-48.0 [facility] [place] Comment on above: Performed By: #### CBC #### [facility] [address] [place] [address] Dr. Sam Balderrama Hemoglobin (Bld) [Mass/Vol] 12.4 g/dL Normal 12.0-16.0 [facility] [place] Comment on above: Performed By: #### CBC #### [facility] [address] [place] [address] Dr. Sam Balderrama IG # 0.03 10e3/ul Normal 0.00-0.03 [facility] [place] Comment on above: Performed By: #### CBC #### [facility] [address] [place] [address] Dr. Sam Balderrama IG % 0.4 % Normal 0.0-0.5 [facility] Comment on above: Performed By: #### CBC #### [facility] [address] [place] [address] Dr. Sam Balderrama LYMPH # 0.8 103/ul Critically low 1.2-3.8 [facility] Comment on above: Performed By: #### CBC #### [facility] [address] [place] [address] Dr. Sam Balderrama Lymphocytes/100 WBC (Bld) 10.9 % Critically low 20.5-60.0 [facility] [place] Comment on above: Performed By: #### CBC #### [facility] [address] [place] [address] Dr. Sam Balderrama MANUAL DIFF REQ NO Normal [facility] Comment on above: Performed By: #### CBC #### [facility] [address] [place] [address] Dr. Sam Balderrama MCH (RBC) [Entitic mass] 30.8 pg Normal 26.7-34.0 [facility] [place] Comment on above: Performed By: #### CBC #### [facility] [address] [place] [address] Dr. Sam Balderrama MCHC (RBC) [Mass/Vol] 32.6 g/dL Normal 29.9-35.2 [facility] [place] Comment on above: Performed By: #### CBC #### [facility] [address] [place] [address] Dr. Sam Balderrama MCV (RBC) [Entitic vol] 94.3 fL Normal 81.0-99.0 [facility] [place] Comment on above: Performed By: #### CBC #### [facility] [address] [place] [address] Dr. Sam Balderrama MONO # 0.7 103/ul Normal 0.3-0.8 [facility] [place] Comment on above: Performed By: #### CBC #### [facility] [address] [place] [address] Dr. Sam Balderrama Monocytes/100 WBC (Bld) 9.6 % Normal 1.7-12.0 [facility] [place] Comment on above: Performed By: #### CBC #### [facility] [address] [place] [address] Dr. Sam Balderrama NEUT # 5.5 103/ul Normal 1.4-6.5 [facility] Comment on above: Performed By: #### CBC #### [facility] [address] [place] [address] Dr. Sam Balderrama Neutrophils/100 WBC (Bld) 78.7 % Critically high 43.0-75.0 [facility] [place] Comment on above: Performed By: #### CBC #### [facility] [address] [place] [address] Dr. Sam Balderrama Platelet mean volume (Bld) [Entitic vol] 10.2 fL Normal 9.5-13.5 [facility] [place] Comment on above: Performed By: #### CBC #### [facility] [address] [place] [address] Dr. Sam Balderrama PLT 227 103/ul Normal 150-450 [facility] Comment on above: Performed By: #### CBC #### [facility] [address] [place] [address] Dr. Sam Balderrama RBC 4.03 106/ul Critically low 4.20-5.40 [facility] [place] Comment on above: Performed By: #### CBC #### [facility] [address] [place] [address] Dr. Sam Balderrama WBC 7.0 103/ul Normal 4.0-11.0 [facility] [place] Comment on above: Performed By: #### CBC #### [facility] [address] [place] [address] Dr. Sam Balderrama INFLUENZA A AND B AGon 12-26 INFLUANE SEE BELOW Normal [facility] [place] Comment on above: Result Comment: Negative for Flu A prote in angiten. Infection due to Flu A cannot be ruled out. Flu A angiten in the sample may be below the detection limit of the test. Performed By: #### A 1C #### [facility] [address] [place] [address] Dr. Sam Balderrama INFLUBNEGH SEE BELOW Normal [facility] [place] Comment on above: Result Comment: Negative for Flu B prote in antigen. Infection due to Flu B cannot be ruled out. Flu B antigen in the sample may be below the detection limit of the test. Performed By: #### A 1C #### [facility] [address] [place] [address] Dr. Sam Balderrama INFLUENZA A AG Negative Normal NEGATIVE SEE COMMENT [facility] [place] Comment on above: Performed By: #### A1C #### [facility] [address] [place] [address] Dr. Sam Balderrama INFLUENZA B AG Negative Normal NEGATIVE SEE COMMENT [facility] [place] Comment on above: Performed By: #### A1C #### [facility] [address] [place] [address] Dr. Sam Balderrama INTERNAL CONTROLS Within Normal Limits Normal Within Normal Limits [facility] Comment on above: Performed By: #### A1C #### [facility] [address] [address] [address] Sam Balderrama PROF CHEM 8 (BAS METB)on Anion gap [Moles/Vol] 10.9 mmol/L Normal [facility] [place] Comment on above: Performed By: #### BNP, CMP, LIPA #### [facility] [address] [address] [address] Sam Balderrama Calcium [Mass/Vol] 9.1 mg/dL Normal 8.5-10.1 [facility] [facility] Comment on above: Performed By: #### BNP, CMP, LIPA #### [facility] [address] [address] [address] Sam Balderrama Chloride [Moles/Vol] 102 mmol/L Normal 98-107 [facility] Comment on above: Performed By: #### BNP, CMP, LIPA #### [facility] [address] [address] [address] Sam Balderrama CO2 [Moles/Vol] 29.5 mmol/L Normal 21.0-32.0 [facility] Comment on above: Performed By: #### BNP, CMP, LIPA #### [facility] [address] [address] [address] Sam Balderrama Creatinine [Mass/Vol] 0.99 mg/dL Normal 0.55-1.02 [facility] Comment on above: Performed By: #### BNP, CMP, LIPA #### [facility] [address] [address] [address] Sam Balderrama EGFR-AF BAHRAINI >60 Normal >=60 [facility] Comment on above: Performed By: #### BNP, CMP, LIPA #### [facility] [address] [address] [address] Sam Balderrama EGFR-NON AF BAHRAINI 54 mL/min/1.73m2 Critically low >=60 [facility] Comment on above: Performed By: #### BNP, CMP, LIPA #### [facility] [address] [address] [address] Sam Balderrama Glucose [Mass/Vol] 193 mg/dL Critically high 74-106 [facility] Comment on above: Performed By: #### BNP, CMP, LIPA #### [facility] [address] [address] [address] Sam Balderrama Potassium [Moles/Vol] 3.4 mmol/L Critically low 3.5-5.1 [facility] Comment on above: Performed By: #### BNP, CMP, LIPA #### [facility] [address] [address] [address] Sam Balderrama Sodium [Moles/Vol] 139 mmol/L Normal 136-145 [facility] Comment on above: Performed By: #### BNP, CMP, LIPA #### [facility] [address] [address] [address] Sam Balderrama Urea nitrogen [Mass/Vol] 15.0 mg/dL Normal 7.0-18.0 [facility] Comment on above: Performed By: #### BNP, CMP, LIPA #### [facility] [address] [address] [address] Sam Balderrama Urea nitrogen/Creatin ine [Mass ratio] 15.2 mg/mg Normal [facility] Comment on above: Performed By: #### BNP, CMP, LIPA #### [facility] [address] [address] [address] Sam Balderrama TROPONIN, HIGH SENSITIVITYon 12-26-2021 HSTROP 11.1 pg/mL Normal 4.0-51.3 [facility] Comment on above: Result Comment: CUT-OFF POINTS HAVE BEEN ESTABLISHED BASED ON THE FOURTH UNIVERSAL DEFINITIONS OF MYOCARDIAL INFARCTION. THE UPPER REFERENCE LIMIT (URL) OF TROPONIN, DEFINED THE 99TH PERCENTILE OF cTnI DISTRIBUTION IN A REFERENCE POPULATION, HAS BEEN CONFIRMED THE DECISION THRESHOLD FOR VA DIAGNOSIS. Performed By: #### B MODERN LANGUAGES PROFESSOR, CMP, LIPA #### [facility] [address] [address] [address] Sam Balderrama XR CHEST 1 Von [...] JAZZ MASON Date: 2021-12-26 16:51 Normal [facility] Covid-19 PCR (CVDTBH)on 12-09 SARS-CoV-2 (COVID-19) RNA MANNY+probe Ql (Unsp spec) Detected Critically abnormal NOT DETECTED [facility] Comment on above: Result Comment: This test is not yet john roved or cleared by the [place] FDA. When there are no FDA-approved or cleared tests available, and other criteria are met, FDA can make tests available under an emergency access mechanism called an Emergency Use Authorization (EUA). The EUA for this test is supported by the [place] of Health and Human Service's (HHS's) declaration [...] longer be used). Performed By: #### [facility] #### [facility] [address] [place] [address] Dr. Sam Balderrama Discharge Summaryon 09-19-19 18 Discharge Summary MR#: [id number] [facility] Name[facility] Ariadna Copeland Admitted: 09/15/2017 Discharged: 09/18/2017 Date of : 1945 Physician: Krunal Dougherty M.D. DISCHARGE SUMMARYPRIMARY DIAGNOSIS: Non-ST elevation myocardial infarction, diagnosed bytakolastubo cardiomyopathy.SECONDARY DIAGNOSES:1. Hypertension.2. Hyperlipidemia.3. Hypothyroidism.HOSPITAL COURSE: A 72-year-old female patient with past medical history ofhypertension, hyperlipidemia, hypothyroidism, presents to the emergencydepartment with chest pain. The patient said that the pain startedsuddenly, substernal, pressure-like the patient's troponinswere found to be elevated at 1.7 and she had T-wave inversion. Therefore,the patient was taken to the laboratory monitor the next day. Her laboratory monitor showednonobstructive coronary angiograms. The left main artery [...] be additional documentation fromme. Date Dict: 09/18/2017/02:27 P/Bruce Barrett Trans: 09/19/2017 11:34 A/Amparo_JN:[id number]: Ruiz Yee D.O. [address] [place] [phone] [place] [facility] POC GLUCOSE LABon 09-18-2017 Glucose mass conc 181 mg/dL High 70-100 [facility] Comment on above: Performed By: #### 58481, 48450, 20376 # ###[facility] Cardiovascular Lab Reporton 09-17-2017 Cardiovascular Lab Report [facility] Patient Name: Ariadna Copeland [facility] MR #: [id number] Physician: Micki Bro,Department of M.D.Medicine Service Date: 09/16/2017Division of Birthdate: 1945ardiology Room #: 3AB [id number] [address] [place], [place] [address]Lkjml Fax Cardiovascular Laboratory ReportFINAL IMPRESSION:Normal epicardial coronary [...] sheath was placed and then we used 5-Latvian JR5,JL3.5, JL4, ultimate an XB LT 3.5-Latvian guide to engage the left coronaryostium. We were able to engage with 4-Latvian JL4 angiography wasperformed. After that, we wanted [...] ostial 40% stenosis, but no damping with 5-Latvian catheters. This is the dominant vessel.Electronically Signed by:Micki Bro M.D. 09/23/2017 12:56 P Micki Bro M.D.Date Dict: 09/16/2017/10:16 Ira/Micki Bro M.D.Date Trans: 09/17/2017 07:11 A/[id number]: Ruiz Yee D.O. [address] [place] [phone] Normal [facility] POC GLUCOSE LABon 09-17-2017 Glucose mass conc 210 mg/dL High 70-100 [facility] Comment on above: Performed By: #### 87689, 05740, 67094 # ###[facility] [facility] [place] [address], [facility] Glucose mass conc 128 mg/dL High 70-100 [facility] Comment on above: Performed By: #### 62993, 83001, 80328 # ###[facility] [facility] [id number], [facility] Glucose mass conc 193 mg/dL High 70-100 [facility] Comment on above: Performed By: #### 16579, 50773, 82438 # ###[facility] [facility] [address], [facility] Glucose mass conc 162 mg/dL High 70-100 [facility] Comment on above: Performed By: #### 44594, 97328, 36182 # ###[facility] [place] [address], [facility] BASIC METABOLIC PANELon 02-0 Calcium 9.5 mg/dL Normal 8.6-10.3 [facility] Comment on above: Order Comment: No: Do not add to previou s draw Performed By: #### 0 0071, 93255, 82780 ####[facility] [place] [address], [facility] Chloride 101 mmol/L Normal 98-107 [facility] Comment on above: Order Comment: No: Do not add to previou s draw Performed By: #### 0 0071, 65306, 71244 ####[facility] [place] [address], [facility] CO2 28 mmol/L Normal 21-31 [facility] Comment on above: Order Comment: No: Do not add to previou s draw Performed By: #### 0 0071, 49726, 66853 ####[facility] [place] [address], [facility] Creatinine 1.04 mg/dL Normal 0.60-1.20 [facility] Comment on above: Order Comment: No: Do not add to previou s draw Performed By: #### 0 0071, 80580, 41790 ####[facility] [place] [address], [facility] eGFR (black) mL/min/{1.73_m2} Normal >60 [facility] Comment on above: Order Comment: No: Do not add to previou s draw Result Comment: Calc ulation may not be valid for patients over 70 years Performed By: #### 0 0071, 03689, 90436 ####[facility] eGFR (non-black) 52 ml/min/1.73sq m Abnormal >60 [facility] Comment on above: Order Comment: No: Do not add to previou s draw Result Comment: Calc ulation may not be valid for patients over 70 years Performed By: #### 0 0071, 46259, 16188 ####[facility] [place] [address], [facility] Glucose mass conc 215 mg/dL High 70-100 [facility] Comment on above: Order Comment: No: Do not add to previou s draw Performed By: #### 0 0071, 70021, 14750 ####[facility] [place] [address], [facility] Potassium molar conc 4.3 mmol/L Normal 3.5-5.1 [facility] Comment on above: Order Comment: No: Do not add to previou s draw Performed By: #### 0 0071, 62905, 69813 ####[facility] Sodium 138 mmol/L Normal 136-145 [facility] Comment on above: Order Comment: No: Do not add to previou s draw Performed By: #### 0 0071, 49669, 62966 ####[facility] Urea nitrogen 20 mg/dL Normal 7-25 [facility] Comment on above: Order Comment: No: Do not add to previou s draw Performed By: #### 0 0071, 49029, 53679 ####[facility] CBC COMPLETE BLOOD COUNTon 0 - Erythrocyte distribution width Auto Ratio (RBC) 12.8 % Normal 11.5-15.0 [facility] Comment on above: Order Comment: No: Do not add to previou s draw Performed By: #### 5 0608 ####[facility] Erythrocytes (RBC) 3.71 10*6/uL Low 3.80-5.00 [facility] Comment on above: Order Comment: No: Do not add to previou s draw Performed By: #### 5 0608 ####[facility] [facility].[address] Erythrocytes (RBC) 0 % Normal 0-0 [facility] Comment on above: Order Comment: No: Do not add to previou s draw Performed By: #### 5 0608 ####[facility] Hematocrit (HCT) 34.1 % Low 36.0-45.0 [facility] Comment on above: Order Comment: No: Do not add to previou s draw Performed By: #### 5 0608 ####[facility] Hemoglobin mass conc (Bld) 11.6 g/dL Low 12.0-15.0 [facility] Comment on above: Order Comment: No: Do not add to previou s draw Performed By: #### 5 0608 ####[facility] [facility].[address] MCH 31.3 pg Normal 27.0-33.0 [facility] Comment on above: Order Comment: No: Do not add to previou s draw Performed By: #### 5 0608 ####[facility] MCHC mass conc (RBC) 34.0 g/dL Normal 32.0-35.0 [facility] Comment on above: Order Comment: No: Do not add to previou s draw Performed By: #### 5 0608 ####[facility] MCV 91.9 fL Normal 82.0-98.0 [facility] Comment on above: Order Comment: No: Do not add to previou s draw Performed By: #### 5 0608 ####[facility] [facility] [address], [facility] PLAT CNT 245 10*3/uL Normal 150-400 [facility] Comment on above: Order Comment: No: Do not add to previou s draw Performed By: #### 5 0608 ####[facility] [facility] [place] [address], [facility] WBC (Leukocytes) 10.8 10*3/uL High 4.0-10.6 [facility] Comment on above: Order Comment: No: Do not add to previou s draw Performed By: #### 5 0608 ####[facility] HEMOGLOBIN A1Con 09-16-2017 Glucose mass conc 189 mg/dL High 70-126 [facility] Comment on above: Order Comment: Yes: Add to Previous draw if abledraw with UFH at 3am per RN NadaSS Performed By: #### 0 0071, 13135, 42672 ####[facility] [facility].[address] Hemoglobin A1c/Hemoglobin.t otal mass fraction (Bld) 8.2 % High 4.0-6.0 [facility] Comment on above: Order Comment: Yes: Add to Previous draw if abledraw with UFH at 3am per RN NadaSS Performed By: #### 0 0071, 28021, 55332 ####[facility] History and Physicalon 09-16 History and Physical MR#: [id number] Pt. Name: Ariadna Copeland Admitted: 09/15/2017 Date of : 1945 Attending Physician: JESSICA Ramirez MD Room #: 3AB [id number] Discharge Date: HISTORY AND PHYSICALCHIEF COMPLAINT: Chest [...] on-call was called.Case was discussed with the bottom buffer who recommended to continueon heparin and nitro drip, repeat troponin every 6 hours. During theinterview, the patient is complaining of chest pain while she was talking.Also during the interview, school bus monitor showed the patient had multiplePVCs. bottom buffer was called and updated about the new [...] levothyroxine 75 mcg, lisinopril with hydrochlorothiazide , [id number] mg daily.SOCIAL HISTORY: The patient denies smoking, [...] 1.01. White blood cells 10.4, hemoglobin 12.9, [id number]. Troponin 1.87. Glucose 199, creatinine 1.17, potassium 3.5.ASSESSMENT:1. Chest pain, most likely due to isb-UY-rffknsiwr myocardial infarction.2. Lzq-IT-qfnvuvups myocardial infarction.3. Essential hypertension.4. Hyperglycemia, rule out [...] Signed by:JESSICA Ramirez MD 09/16/2017 04:13 A __Bruce Uribe Dict: 09/15/2017/11:08 P/Bruce Uribe Trans: 09/15/2017 11:49 [id number] Normal [facility] MAGNESIUM BLOODon 09-16-2017 Magnesium 2.0 mg/dL Normal 1.9-2.7 [facility] Comment on above: Order Comment: No: Do not add to previou s draw Performed By: #### 0 0071, 05782, 66339 ####[facility] PHOSPHORUS BLOODon 8 Phosphate 3.8 mg/dL Normal 2.5-5.0 [facility] Comment on above: Order Comment: No: Do not add to previou s draw Performed By: #### 4 1000, 17780, 02582, 37314 ####[facility] POC GLUCOSE LABon 09-16-2017 Glucose mass conc 236 mg/dL High 70-100 [facility] Comment on above: Performed By: #### 48493, 96916, 09992 # ###[facility] [facility] [place] [address], [facility] Glucose mass conc 140 mg/dL High 70-100 [facility] Comment on above: Performed By: #### 86980, 41104, 12365 # ###[facility] [place] [address], [facility] Glucose mass conc 156 mg/dL High 70-100 [facility] Comment on above: Performed By: #### 81025, 64284, 08557 # ###[facility] [facility] [place] [address], [facility] Glucose mass conc 152 mg/dL High 70-100 [facility] Comment on above: Performed By: #### 93858, 00650, 97248 # ###[facility] [facility] PROTHROMBIN TIMEon 8 INR Coag RelTime (PPP) 1.07 {INR} Normal 0.91-1.16 [facility] Comment on above: Result Comment: ACC RECOMMENDED INR FO R WARFARIN THERAPY CONDITION INRPROPHYLAXIS OF VENOUS THROMBOSIS 2-3(HIGH-RISK SURGERY)TREATMENT OF VENOUS THROMBOSIS 2-3TREATMENT OF PULMONARY EMBOLISM 2-3PREVENTION OF SYSTEMIC EMBOLISM: 2-3 ACUTE MYOCARDIAL INFARCTION TISSUE HEART VALVES VALVULAR HEART DISEASE ATRIAL FIBRILLATION RECURRENT SYSTEMIC EMBOLISMMECHANICAL HEART VALVE 2.5-3.5 FROM: ORAL ANTICOAGULANTS. MECHANISM OF ACTION, CLINICALEFFECTIVENESS, AND OPTIMAL THERAPEUTIC RANGE. [id number]. Performed By: #### 0 0071, 09099, 08350 ####[facility] Prothrombin time (PT) Coag time (PPP) 13.9 s Normal 12.3-14.8 [facility] Comment on above: Result Comment: ALL RESULTS MUST BE INTE RPRETED WITH RESPECT TO BLOOD DRAWING ARTIFACTOR DILUTION ERROR OF ANTICOAGULANT AT THE TIME OF SAMPLING. Performed By: #### 0 0071, 20887, 16613 ####[facility] TROPONIN-Ion 09-16-2017 Troponin I.cardiac mass conc 1.75 ng/mL Critically high 0.00-0.04 [facility] Comment on above: Result Comment: REFERENCE RANGES: 0.00 - 0.04 ng/ml NORMAL 0.05 - 0.50 ng/ml INDETERMINATE > 0.50 ng/ml CONSISTENT WITH AN M.I. Performed By: #### 0 0071, 67100, 04761 ####[facility] [place] [address], [facility] UFH HEPARIN ASSAYon 09-16-19 18 UNFRACTIONATED HEPARIN 0.39 IU/mL Normal 0.30-0.70 [facility] Comment on above: Result Comment: Rivaroxaban and Apixaban will interfere with the anti Xa assay used tomonitor UFH and LMWH. Performed By: #### 0 0071, 67788, 27950 ####[facility] [place] [address], [facility] UNFRACTIONATED HEPARIN 0.52 IU/mL Normal 0.30-0.70 [facility] Comment on above: Result Comment: Rivaroxaban and Apixaban will interfere with the anti Xa assay used tomonitor UFH and LMWH. Performed By: #### 0 0071, 86661, 41582 ####[facility] [place] [address], [facility] APTTon 09-15-2017 aPTT 30.5 s Normal 25.0-35.0 [facility] Comment on above: Result Comment: ALL RESULTS [...] THIS PURPOSE. Performed By: #### 5 7307, 12408, 17004 ####[facility] [facility].[address] BASIC METABOLIC PANELon Calcium 9.8 mg/dL Normal 8.6-10.3 [facility] Comment on above: Performed By: #### 30226, 88923, 96787 # ###[facility] [facility].[address] Chloride 99 mmol/L Normal 98-107 [facility] Comment on above: Performed By: #### 93116, 48237, 80997 # ###[facility] [facility].[address] CO2 28 mmol/L Normal 21-31 [facility] Comment on above: Performed By: #### 28885, 75256, 96998 # ###[facility] [facility].[address] Creatinine 1.17 mg/dL Normal 0.60-1.20 [facility] Comment on above: Performed By: #### 35307, 01272, 18346 # ###[facility] [facility].[address] eGFR (black) 55 ml/min/1.73sq m Abnormal >60 [facility] Comment on above: Result Comment: Calculation may not be v alid for patients over 70 years Performed By: #### 0 0071, 69546, 13385 ####[facility] [facility].[address] eGFR (non-black) 45 ml/min/1.73sq m Abnormal >60 [facility] Comment on above: Result Comment: Calculation may not be v alid for patients over 70 years Performed By: #### 0 0071, 32889, 04192 ####[address] Glucose mass conc 199 mg/dL High 70-100 [facility] Comment on above: Performed By: #### 48671, 14534, 01060 # ###[address] Potassium molar conc 3.5 mmol/L Normal 3.5-5.1 [facility] Comment on above: Performed By: #### 81500, 68053, 06773 # ###[address] Sodium 138 mmol/L Normal 136-145 [facility] Comment on above: Performed By: #### 88066, 59867, 86881 # ###[address] Urea nitrogen 21 mg/dL Normal 7-25 [facility] Comment on above: Performed By: #### 70450, 32410, 39527 # ###[address] CBC W/DIFFon 09-15-2017 ABS BASOPHILS 0.1 10*3/uL Normal 0.0-0.2 [facility] Comment on above: Performed By: #### [address]8797 ####[address] ABS IMM GRANS 0.1 10*3/uL Normal 0.0-0.2 [facility] Comment on above: Performed By: #### 37185 ####[facility] [place] [address], [facility] Basophils Auto #/vol (Bld) 0.5 % Normal 0.0-1.0 [facility] Comment on above: Performed By: #### 90258 ####[facility] [place] [address], [facility] Eosinophils 0.1 10*3/uL Normal 0.0-0.5 [facility] Comment on above: Performed By: #### 18727 ####[facility] [facility].[address] Eosinophils/100 leukocytes 1.1 % Normal 0.0-6.0 [facility] Comment on above: Performed By: #### 27514 ####[facility] [facility] Erythrocyte distribution width Auto Ratio (RBC) 12.6 % Normal 11.5-15.0 [facility] Comment on above: Performed By: #### 66643 ####[facility] [facility] Erythrocytes (RBC) 4.18 10*6/uL Normal 3.80-5.00 [facility] Comment on above: Performed By: #### 41628 ####[facility] [facility] Erythrocytes (RBC) 0 % Normal 0-0 [facility] Comment on above: Performed By: #### 07517 ####[facility] [facility] Hematocrit (HCT) 38.3 % Normal 36.0-45.0 [facility] Comment on above: Performed By: #### 08295 ####[facility] Hemoglobin mass conc (Bld) 12.9 g/dL Normal 12.0-15.0 [facility] Comment on above: Performed By: #### 58226 ####[facility] [facility].[address] IMMATURE GRANS 1.0 % Normal 0.0-1.0 [facility] Comment on above: Performed By: #### [id number] ####[facility] Lymphocytes 1.9 10*3/uL Normal 1.2-4.0 [facility] Comment on above: Performed By: #### [id number] ####[facility] Lymphocytes/100 leukocytes 18.7 % Low 20.0-45.0 [facility] Comment on above: Performed By: #### [id number] ####[facility] MCH 30.9 pg Normal 27.0-33.0 [facility] Comment on above: Performed By: #### [id number] ####[facility] MCHC mass conc (RBC) 33.7 g/dL Normal 32.0-35.0 [facility] Comment on above: Performed By: #### [id number] ####[facility] MCV 91.6 fL Normal 82.0-98.0 [facility] Comment on above: Performed By: #### [id number] ####[facility] Monocytes 0.6 10*3/uL Normal 0.1-1.0 [facility] Comment on above: Performed By: #### [id number] ####[facility] [place] [address], [facility] MONOS 6.0 % Normal 5.0-12.0 [facility] Comment on above: Performed By: #### [id number] ####[facility]3000 [facility] [place] [address], [facility] Neutrophils 7.5 10*3/uL Normal 1.6-7.6 [facility] Comment on above: Performed By: #### [id number] ####[facility]3000 [facility] [place] [address], [facility] Neutrophils/100 leukocytes 72.7 % High 40.0-72.0 [facility] Comment on above: Performed By: #### [id number] ####[facility]3000 [facility] [place] [place] [address], [facility] PLAT CNT 265 10*3/uL Normal 150-400 [facility] Comment on above: Performed By: #### [id number] ####[facility] [facility] [place] [address], [facility] WBC (Leukocytes) 10.4 10*3/uL Normal 4.0-10.6 [facility] Comment on above: Performed By: #### [id number] ####[facility]3000 [facility].[address] LIPID PROFILEon 09-15-2017 Cholesterol 176 mg/dL Normal 120-200 [facility] Comment on above: Result Comment: CHOLESTEROL REFERENCE RA NGE:20 YEARS AND OLDER CARDIOVASCULAR RISKLess than 200 mg/dl Low Wkcj980 to 239 mg/dl Borderline Datc636 mg/dl and greater High Risk Performed By: #### 0 0071, 80611, 47429 ####[facility]3000 [facility].[address] Cholesterol to HDL Ratio 3.0 {ratio} Normal .0-4.5 [facility] Comment on above: Performed By: #### 76983, 83097, [id number] # ###[facility] HDL Cholesterol 59 mg/dL Normal 23-92 [facility] Comment on above: Result Comment: Slight variation in norm al range could be due to gender and/or age.HDL CHOLESTEROL REFERENCE RANGE:20 years and older Cardiovascular Risk> or =60 mg/dL Plbiqwmkn73 TO 59 mg/dL Low Risk<40 mg/dL High Risk Performed By: #### 0 0071, 52691, 38369 ####[facility] LDL Cholesterol 73 mg/dL Normal 0-130 [facility] Comment on above: Result Comment: LDL IS A CALCULATIONLDL IS ONLY VALID IF THE TRIG IS LESS THAN 400. Performed By: #### 0 0071, 61110, 11006 ####[facility] NON-HDL CHOLESTEROL 117 mg/dL Normal [facility] Comment on above: Performed By: #### 93658, 06591, 96697 # ###[facility]3000 [facility] Triglyceride 219 mg/dL High 40-149 [facility] Comment on above: Result Comment: TRIGLYCERIDE REFERENCE R RAAD:20 YEARS AND OLDER CARDIOVASCULAR RISKLESS THAN 150 mg/dl LOW [id number] TO 199 mg/dl BORDERLINE KEPV982 mg/dl AND GREATER HIGH RISK Performed By: #### 0 0071, 95349, 38610 ####[facility] [place] [address], [facility] VLDL CHOL 44 mg/dL High 0-40 [facility] Comment on above: Performed By: #### 51489, 46326, [id number] # ###[facility] [place] [address], [facility] PORTABLE CHEST 1 VIEWon PORTABLE CHEST 1 VIEW [facility] [address] [place] [address] Patient Name: ARIADNA COPELAND : 1945Sex: FAge: Race: WhiteMRN: [id number]. Location: EMERPatient Status: IVisit #: [id number] Date: 09/15/2017 8:15:00 PMCompleted Date: 09/15/2017 08:23 PMRequesting Provider: MICKEY YU Attending Provider: MICKEY YU Report Copy To: Signs & Symptoms: Chest PainHistory: Patient history not availableComments: R/O PneumoniaExam: PORTABLE CHEST 1 VIEWAccession #: [id number] PORTABLE CHEST 1 VIEW 09/15/2017 8:23 PM [...] findings. Electronically signed by:Neeru Lane. Transcribed by: [email or web address], User Resident: WAKLER BARNARDElectronically Signed by: NEERU LANE @ 09/16/2017 10:35 AMI personally read this/these film(s) with this resident Normal [facility] Comment on above: Order Comment: R/O Pneumonia PROTHROMBIN TIMEon 8 INR Coag RelTime (PPP) 1.01 {INR} Normal 0.91-1.16 [facility] Comment on above: Result Comment: ACCCP RECOMMENDED INR FO R WARFARIN THERAPY CONDITION INRPROPHYLAXIS OF VENOUS THROMBOSIS 2-3(HIGH-RISK SURGERY)TREATMENT OF VENOUS THROMBOSIS 2-3TREATMENT OF PULMONARY EMBOLISM 2-3PREVENTION OF SYSTEMIC EMBOLISM: 2-3 ACUTE MYOCARDIAL INFARCTION TISSUE HEART VALVES VALVULAR HEART DISEASE ATRIAL FIBRILLATION RECURRENT SYSTEMIC EMBOLISMMECHANICAL HEART VALVE 2.5-3.5 FROM: ORAL ANTICOAGULANTS. MECHANISM OF ACTION, CLINICALEFFECTIVENESS, AND OPTIMAL THERAPEUTIC RANGE. [id number]. Performed By: #### 5 7307, 59234, [id number] ####[facility] Prothrombin time (PT) Coag time (PPP) 13.3 s Normal 12.3-14.8 [facility] Comment on above: Result Comment: ALL RESULTS MUST BE INTE RPRETED WITH RESPECT TO BLOOD DRAWING ARTIFACTOR DILUTION ERROR OF ANTICOAGULANT AT THE TIME OF SAMPLING. Performed By: #### 5 7307, 05605, 28953 ####[facility] [place] [address], [facility] TROPONIN-Ion 09-15-2017 Troponin I.cardiac mass conc 1.87 ng/mL Critically high 0.00-0.04 [facility] Comment on above: Result Comment: M-CRITICAL RESULT(S) REV IEWED, CALLED TO AND READ BACK BY SANTIAGO RAYGOZA RNAT 2124REFERENCE RANGES: 0.00 - 0.04 ng/ml NORMAL 0.05 - 0.50 ng/ml INDETERMINATE > 0.50 ng/ml CONSISTENT WITH AN M.I. Performed By: #### 0 0071, 11113, 75238 ####[facility]3000 [facility].[address] UFH HEPARIN ASSAYon 09-15-19 18 UNFRACTIONATED HEPARIN <0.10 Critically low 0.30-0.70 [facility] Comment on above: Result Comment: Rivaroxaban and Apixaban will interfere with the anti Xa assay used tomonitor UFH and LMWH.RESULTS CHECKED AND CALLED. ACCURATELY READ BACK BY SANTIAGO STOLL RN @2125 Performed By: #### 5 7307, 36717, 00240 ####[facility] [facility] [place] [address], [facility] Vital Signs Date Time Vital Sign Value Performing Clinician Facility 06-28-2024 13:53-0500 Body height 162.56 cm [facility] 06-28-2024 13:53-0500 Body mass index (BMI) [Ratio] 24.7 kg/m2 [facility] 06-28-2024 13:53-0500 Body weight 65.43 kg [facility] 06-28-2024 13:53-0500 Diastolic blood pressure 82 mm[Hg] [facility] 06-28-2024 13:53-0500 Heart rate 81 /min [facility] 06-28-2024 13:53-0500 Respiratory rate 12 /min [facility] 06-28-2024 13:53-0500 Systolic blood pressure 163 mm[Hg] [facility] 04-30-2024 11:05-0400 Body height 162.56 cm [facility] 04-30-2024 11:05-0400 Body mass index (BMI) [Ratio] 25.1 kg/m2 [facility] 04-30-2024 11:05-0400 Body weight 66.45 kg [facility] 04-30-2024 11:05-0400 Diastolic blood pressure 72 mm[Hg] [facility] 04-30-2024 11:05-0400 Heart rate 62 /min [facility] 04-30-2024 11:05-0400 Respiratory rate 12 /min [facility] 04-30-2024 11:05-0400 Systolic blood pressure 157 mm[Hg] [facility] 04-21-2024 12:11-0400 Body height 162.56 cm [facility] 04-21-2024 12:11-0400 Body mass index (BMI) [Ratio] 24.9 kg/m2 [facility] 04-21-2024 12:11-0400 Body weight 65.88 kg [facility] 04-21-2024 12:11-0400 Diastolic blood pressure 68 mm[Hg] [facility] 04-21-2024 12:11-0400 Heart rate 76 /min [facility] 04-21-2024 12:11-0400 Respiratory rate 12 /min [facility] 04-21-2024 12:11-0400 Systolic blood pressure 184 mm[Hg] [facility] 04-13-2024 11:02-0400 Body height 162.56 cm [facility] 04-13-2024 11:02-0400 Body mass index (BMI) [Ratio] 25.2 kg/m2 [facility] 04-13-2024 11:02-0400 Body weight 66.73 kg [facility] 04-13-2024 11:02-0400 Diastolic blood pressure 89 mm[Hg] [facility] 04-13-2024 11:02-0400 Heart rate 52 /min [facility] 04-13-2024 11:02-0400 Respiratory rate 12 /min [facility] 04-13-2024 11:02-0400 Systolic blood pressure 139 mm[Hg] [facility] 01-07-2024 10:34-0400 Body height 162.56 cm [facility] 01-07-2024 10:34-0400 Body mass index (BMI) [Ratio] 25.4 kg/m2 [facility] 01-07-2024 10:34-0400 Body weight 67.18 kg [facility] 01-07-2024 10:34-0400 Diastolic blood pressure 62 mm[Hg] [facility] 01-07-2024 10:34-0400 Heart rate 76 /min [facility] 01-07-2024 10:34-0400 Respiratory rate 12 /min [facility] 01-07-2024 10:34-0400 Systolic blood pressure 139 mm[Hg] [facility] 09-02-2023 08:56-0500 Diastolic blood pressure 62 mm[Hg] [employer] [employer] [facility] 09-02-2023 08:56-0500 Heart rate 72 /min [employer] [facility] 09-02-2023 08:56-0500 Systolic blood pressure 136 mm[Hg] [employer] [facility] 06-30-2023 09:30-0500 Body height 162.56 cm [facility]iz [employer] Other [facility] [employer] Other 06-30-2023 09:30-0500 Body mass index (BMI) [Ratio] 24.34 kg/m2 Ruiz Ball Other [employer] [facility] [employer] Other 06-30-2023 09:30-0500 Body weight 64.32 kg Ruiz Ball Other [facility] [employer] Other 06-30-2023 09:30-0500 Diastolic blood pressure 72 mm[Hg] Ruiz Ball Other [facility] [employer] Other 06-30-2023 09:30-0500 Respiratory rate 12 /min Ruiz Ball Other [employer] Other 06-30-2023 09:30-0500 Systolic blood pressure 160 mm[Hg] Ruiz Ball Other [employer] Other 03-27-2023 09:00-0400 Body height 162.56 cm Ruiz Ball Other [employer] Other 03-27-2023 09:00-0400 Body mass index (BMI) [Ratio] 25.09 kg/m2 Ruiz Ball Other [employer] Other 03-27-2023 09:00-0400 Body weight 66.32 kg Ruiz Ball Other [employer] Other 03-27-2023 09:00-0400 Diastolic blood pressure 62 mm[Hg] Ruiz Ball Other [employer] Other 03-27-2023 09:00-0400 Respiratory rate 12 /min Ruiz Ball Other [employer] Other 03-27-2023 09:00-0400 Systolic blood pressure 150 mm[Hg] Ruiz Ball Other [employer] Other 02-24-2023 11:30-0400 Body height 162.56 cm Ruiz Ball Other [employer] Other 02-24-2023 11:30-0400 Body mass index (BMI) [Ratio] 25.09 kg/m2 Ruiz Ball Other [employer] Other 02-24-2023 11:30-0400 Body weight 66.32 kg Ruiz Ball Other [employer] Other 02-24-2023 11:30-0400 Diastolic blood pressure 74 mm[Hg] Ruiz Ball Other [employer] Other 02-24-2023 11:30-0400 Respiratory rate 12 /min Ruiz Ball Other [employer] Other 02-24-2023 11:30-0400 Systolic blood pressure 173 mm[Hg] Ruiz Ball Other [employer] Other 12-19-2022 10:00-0400 Body height 162.56 cm Ruiz Ball Other [employer] Other 12-19-2022 10:00-0400 Body mass index (BMI) [Ratio] 25.5 kg/m2 Ruiz Ball Other [employer] Other 12-19-2022 10:00-0400 Body weight 67.4 kg Ruiz Ball Other [employer] Other 12-19-2022 10:00-0400 Diastolic blood pressure 71 mm[Hg] Ruiz Ball Other [employer] Other 12-19-2022 10:00-0400 Respiratory rate 12 /min Ruiz Ball Other [employer] Other 12-19-2022 10:00-0400 Systolic blood pressure 133 mm[Hg] Ruiz Ball Other [employer] Other 09-18-2022 10:00-0500 Body height 162.56 cm Ruiz Ball Other [employer] Other 09-18-2022 10:00-0500 Body mass index (BMI) [Ratio] 25.47 kg/m2 Ruiz Ball Other [employer] Other 09-18-2022 10:00-0500 Body weight 67.31 kg Ruiz Yee Other [facility] Other 09-18-2022 10:00-0500 Diastolic blood pressure 70 mm[Hg] Ruiz Ball Other [employer] Other 09-18-2022 10:00-0500 Respiratory rate 12 /min Ruiz Ball Other [employer] Other 09-18-2022 10:00-0500 Systolic blood pressure 130 mm[Hg] [employer] Other [employer] Other Encounters Encounter Date Encounter Type Care Provider Facility Start: 07-27-2024 End: 07-27-2024 Bamboo flowsheet Cheikh Bell DPM Work Phone: [facility] Start: 07-27-2024 End: 07-27-2024 Bamboo flowsheet Cheikh Bell DPM Work Phone: [facility] Start: 07-27-2024 End: 07-27-2024 Patient encounter procedure Cheikh Bell DPM Work Phone: [facility] Comment on above: Onychomycosis (Prima ry Dx); Pain in both feet; Type II diabetes mellitus with neurological manifestations ([facility] Start: 07-27-2024 End: 07-27-2024 ambulatory CHEIKH BELL Not Available Start: 07-22-2024 End: 07-22-2024 Bamboo flowsheet Sherita Castillo MD Work Phone: [facility] Start: 07-22-2024 End: 07-22-2024 Bamboo flowsheet Sherita Castillo MD Work Phone: [facility] Start: 07-22-2024 End: 07-22-2024 ambulatory SHERITA CASTILLO Not Available Start: 06-28-2024 End: 06-28-2024 ambulatory [facility] Work Phone: Start: 06-28-2024 End: 06-28-2024 Patient encounter procedure [facility] Work Phone: Start: 05-31-2024 End: 05-31-2024 ambulatory [facility] Work Phone: Start: 05-31-2024 End: 05-31-2024 Patient encounter procedure [facility] Work Phone: Start: 05-17-2024 End: 05-17-2024 Bamboo flowsheet Cheikh Bell DPM Work Phone: [facility] Start: 05-17-2024 End: 05-17-2024 Bamboo flowsheet Cheikh Bell DPM Work Phone: [facility] Start: 05-17-2024 End: 05-17-2024 Patient encounter procedure Cheikh Bell DPM Work Phone: [facility] Comment on above: Onychomycosis (Prima ry Dx); Pain in both feet; Type II diabetes mellitus with neurological manifestations (CMS/HCC); Corns and callosities Start: 05-17-2024 End: 05-17-2024 ambulatory CHEIKH BELL Not Available Start: 04-30-2024 End: 04-30-2024 ambulatory [facility] Work Phone: Start: 04-30-2024 End: 04-30-2024 Patient encounter procedure [facility] Work Phone: Start: 04-21-2024 End: 04-21-2024 ambulatory [facility] Work Phone: Start: 04-21-2024 End: 04-21-2024 Patient encounter procedure [facility] Work Phone: Start: 04-21-2024 Non-patient / Non-visit [facility] Work Phone: Start: 04-13-2024 End: 04-13-2024 ambulatory [facility] Work Phone: Start: 04-13-2024 End: 04-13-2024 Patient encounter procedure [facility] Work Phone: Start: 04-10-2024 Patient encounter procedure [facility] Start: 03-04-2024 End: 03-04-2024 ambulatory CHEIKH H BELL Not Available Start: 01-07-2024 End: 01-07-2024 ambulatory [facility] Work Phone: Start: 01-07-2024 End: 01-07-2024 Patient encounter procedure [facility] Work Phone: Start: 12-29-2023 End: 12-29-2023 ambulatory CHEIKH H BELL Not Available Start: 10-27-2023 End: 10-27-2023 ambulatory CHEIKH H BELL Not Available Start: 10-13-2023 Non-patient / Non-visit [facility] Work Phone: Start: 09-15-2023 End: 09-15-2023 ambulatory Ruiz Yee Other [employer] Other Start: 09-15-2023 Telephone encounter Ruiz Yee [facility] Start: 09-02-2023 ambulatory Andry MCHUGH Facility :[facility] Start: 09-02-2023 End: 09-02-2023 Patient encounter procedure Andry MCHUGH [facility] Start: 08-25-2023 End: 08-25-2023 ambulatory CHEIKH H BELL Not Available Start: 07-21-2023 End: 07-21-2023 ambulatory Ruiz Yee Other [facility] Other Start: 07-21-2023 Telephone encounter Ruiz Ball [facility] Start: 06-30-2023 End: 06-30-2023 ambulatory Ruiz Ball Other [facility] Other Start: 06-30-2023 Office outpatient vi sit 25 minutes Ruiz Ball [facility] Start: 06-24-2023 End: 06-24-2023 ambulatory Ruiz Ball Other [facility] Other Start: 06-24-2023 Office outpatient vi sit 15 minutes Ruiz Ball [facility] Start: 03-31-2023 End: 03-31-2023 ambulatory Ruiz Ball Other [facility] Other Start: 03-31-2023 Telephone encounter Ruiz Ball [facility] Start: 03-27-2023 End: 03-27-2023 ambulatory Ruiz Ball Other [facility] Other Start: 03-27-2023 Patient encounter procedure Ruiz Ball [facility] Start: 03-25-2023 End: 03-25-2023 ambulatory Ruiz Ball Other [facility] Other Start: 03-25-2023 Telephone encounter Ruiz Ball [facility] Start: 03-24-2023 End: 03-24-2023 ambulatory Ruiz Ball Other [facility] Other Start: 03-24-2023 Telephone encounter Ruiz Ball [facility] Start: 03-13-2023 End: 03-13-2023 ambulatory Ruiz Ball Other [facility] Other Start: 03-13-2023 Telephone encounter Ruiz Ball [facility] Start: 03-11-2023 End: 03-11-2023 ambulatory Ruiz Ball Other [facility] Other Start: 03-11-2023 Telephone encounter Ruiz Ball [facility] Start: 02-26-2023 End: 02-26-2023 ambulatory Ruiz Yee Other [facility] Other Start: 02-26-2023 Telephone encounter Ruiz Yee [facility] Start: 02-24-2023 End: 02-24-2023 ambulatory Ruiz Yee Other [facility] Other Start: 02-24-2023 Office outpatient vi sit 15 minutes Ruiz Zachariah [facility] Start: 02-24-2023 Telephone encounter Ruiz Yee [facility] Start: 02-10-2023 End: 02-11-2023 ambulatory Andry MCHUGH Facility:[facility] Start: 02-10-2023 End: 02-10-2023 Patient encounter procedure Andry MCHUGH [facility] Start: 02-04-2023 End: 02-04-2023 ambulatory Ruiz Yee Other [facility] Other Start: 02-04-2023 Telephone encounter Ruiz BOLES [facility] Start: 01-28-2023 End: 01-28-2023 ambulatory Ruiz Yee Other [facility] Other Start: 01-28-2023 Telephone encounter Ruiz Yee [facility] Start: 01-22-2023 ambulatory Andry MCHUGH Facility:[facility] Start: 01-17-2023 End: 01-18-2023 ambulatory Kailee Ligia Facility:CD:[id number] Start: 12-19-2022 End: 12-19-2022 ambulatory Ruiz Yee Other [facility] Other Start: 12-19-2022 Office outpatient vi sit 25 minutes Ruiz Yee [facility] Start: 11-11-2022 End: 11-12-[address] RUIZ YEE Facility: Start: 10-15-2022 End: 10-15-2022 ambulatory Ruiz Zachariah Other [facility] Other Start: 10-15-2022 Office outpatient vi sit 15 minutes Ruiz Yee [facility] Start: 09-18-2022 End: 09-18-2022 ambulatory Ruiz Yee Other [facility] Other Start: 09-18-2022 Office outpatient vi sit 25 minutes Ruiz Yee [facility] Zachariah [facility] Start: 03-20-2022 End: 03-21-[address] RUIZ YEE Facility:[facility] Start: 03-07-2022 Adult health examination Janak curtis Zachariah Other [facility] Other Start: 02-27-2022 End: 02-27-[address] RUIZ YEE Facility:[facility] Start: 01-11-[address] RUIZ YEE Facili ty:[facility] Start: 01-05-2022 End: 01-07-[address] KAILEE COX . Facility:[facility] Start: 12-26-2021 End: 12-26-[address] ISHAN LYON . Facility:[facility] Start: 12-25-2021 End: 12-25-[address] RUIZ YEE Facility:[facility] Start: 12-16-2017 End: 12-17-2017 Ambulatory DEFAULT PHYSICIAN Facility:[facility] Start: 09-15-2017 End: 09-18-2017 Evaluation and management of inpatient REFERRED SELF Facility:[facility] Procedures Date Procedure Procedure Detail Performing Clinician Start: 07-22-2024 End: 07-22-2024 [facility] medical xm&eval comprhnsv estab pt 1/> Type 2 diabetes mellitus without complication, with long-term current use of insulin (CMS/HCC) Sherita Castillo MD Work Phone: Comment on above: Type 2 diabetes brianna itus without complication, with long-term current use of insulin (CMS/HCC) (Primary Dx); Pseudophakia Start: 12-25-2020 Depression screening Be kristal Yee Other Start: 12-25-2017 Screening for osteoporosis Ruiz Yee Other Start: 09-16-2017 FLUOROSCOPY OF MULT COR ART USING L OSM CONTRAST MICKI BRO Start: 09-16-2017 INTRODUCE OTH THERAP SUBST IN PERIPH VEIN, PERC SAMER Delia LIRA Start: 09-16-2017 MEASURE OF CARDIAC S AMPL \T\ PRESSURE, L HEART, PERC APPROACH MICKI BRO Start: 11-28-2015 Screening for malign ant neoplasm of colon Ruiz Yee Other Start: 11-22-2015 Screening mammography B enjakirsten Yee Other Screening for malign ant neoplasm of breast Ruiz Yee Other Screening for malign ant neoplasm of breast Ruiz Ball Other Plan of Treatment Date Care Activity Detail Author Start: 10-04-2024 End: 10-04-2024 Patient encounter procedure 10/04/2024 10:00 AM EST Procedure Visit [facility] [address] [place] [address] Cheikh Bell DPM [address] [place] [address] [facility] Start: 07-27-2024 End: 07-27-2024 [facility] Comment on above: Arrived Start: 07-22-2024 End: 07-22-2024 Patient encounter procedure 07/22/2024 10:30 AM EST Office Visit [facility] [address] [place] [id number] Sherita Castillo MD [address] [place] [address] Arrived [facility] Comment on above: Arrived Start: 05-17-2024 End: 05-17-2024 Patient encounter procedure 05/17/2024 10:00 AM EDT Procedure Visit [facility] [address] [place] [address] Cheikh Bell DPM [address] [place] [address] Arrived [facility] Comment on above: Arrived Start: 04-11-2024 Influenza vaccination Influenz a Vaccine (#1) [facility] metabo lic 2000 panel - Serum or Plasma [facility] MG Breast - bilatera l Screening [facility] Microalbumin [Mass/volume] in Urine [facility] US Thyroid gland [facility] Immunizations Immunization Date Immunization Notes Care Provider Fa cility 05-31-2024 influenza, high dose seasonal, preservative-free [facility] 06-30-2023 influenza virus vaccine, unspecified formulation [facility] 06-30-2023 influenza, high dose seasonal, preservative-free Ruiz Yee Other [facility] Other 08-11-2022 influenza virus vaccine, unspecified formulation Andry MCHUGH [facility] 07-08-2022 SARS-CoV-2 (COVID-19 ) [id number] Andry MCHUGH [facility] 05-08-2022 influenza virus vaccine, unspecified formulation [facility] 05-08-2022 influenza, high dose seasonal, preservative-free Ruiz Yee Other [facility] Other 05-06-2022 influenza virus vaccine, split virus (incl. purified surface antigen) Ruiz Yee Other [employer] [facility] Other 05-06-2022 influenza virus vaccine, unspecified formulation Andry MCHUGH [facility] 07-02-2021 SARS-CoV-2 (COVID-19 ) mRNA BNT-162b2 vax Andry MCHUGH [facility] 04-27-2021 influenza virus vaccine, split virus (incl. purified surface antigen) Ruiz Yee Other [facility] Other 04-27-2021 influenza virus vaccine, unspecified formulation [facility] 09-28-2020 SARS-CoV-2 (COVID-19 ) mRNA BNT-162b2 [employer]Capigami [facility] Comment on above: Result Comment: 2023: [id number] 09-07-2020 SARS-CoV-2 (COVID-19 ) mRNA BNT-162d6 vax [employer] [facility] Comment on above: Result Comment: 2023: [id number] 05-04-2020 influenza virus vaccine, split virus (incl. purified surface antigen) Ruiz Yee Other [facility] Other 05-04-2020 influenza virus vaccine, unspecified formulation [facility] 04-30-2019 influenza virus vaccine, unspecified formulation [facility] 04-24-2018 influenza virus vaccine, split virus (incl. purified surface antigen) Ruiz Yee Other [facility] Other 04-24-2018 influenza virus vaccine, unspecified formulation [employer] 04-17-2017 influenza virus vaccine, split virus (incl. purified surface antigen) Ruiz Yee Other [facility] Other 04-17-2017 influenza virus vaccine, unspecified formulation [facility] 05-10-2016 influenza virus vaccine, split virus (incl. purified surface antigen) Ruiz Yee Other [facility] Other 05-10-2016 influenza virus vaccine, unspecified formulation [facility] 06-13-2015 tetanus and diphther ia toxoids, adsorbed, preservative free, for adult use (5 Lf of tetanus toxoid and 2 Lf of diphtheria toxoid) Ruiz Yee Other [facility] 03-28-2015 pneumococcal conjuga te vaccine, 13 valent Ruiz Yee Other [facility] 03-28-2015 pneumococcal Conjuga te, unspecified formulation; Translations: [Need for prophylactic vaccination against Streptococcus pneumoniae (pneumococcus)] Ruiz Zachariah Other [facility] Other 11-05-2014 pneumococcal conjuga te vaccine, 13 valent [facility] 06-07-2014 influenza virus vaccine, split virus (incl. purified surface antigen) Ruiz Yee Other [facility] Other 06-07-2014 influenza virus vaccine, unspecified formulation [facility] 06-07-2013 tetanus and diphther ia toxoids, adsorbed, preservative free, for adult use (5 Lf of tetanus toxoid and 2 Lf of diphtheria toxoid) Ruiz Zachariah Other [facility] 05-24-2009 pneumococcal polysaccharide vaccine, 23 valent Ruiz Yee Other [facility] Payers Date Payer Category Payer Private Health Insurance THRIVEN T [id number] 2016 Unknown 2008 Medicare [id number] 1959 Medicare [id number] [id number] 1959 Unknown [id number] 2.16.840.1.196351.19 1943 Unknown [id number] 2.16.840.1.022783.3.579 .2.593 1943 Unknown [id number] 2.16.840.1.874586.3.579 .2.593 1943 Unknown [id number] 2.16.840.1.449554.3.579 .2.593 1943 Unknown [id number] 2.16.840.1.753478.3.579 .2.593 1943 Unknown [id number] 2.16.840.1.440544.3.579 .2.593 1943 Unknown [id number] 2.16.840.1.396393.3.579 .2.593 1943 Unknown [id number] 2.16.840.1.226673.3.579 .2.593 1943 Unknown [id number] 2.16.840.1.410108.3.579 .2.727 1943 Unknown [id number] 2.16.840.1.410213.3.579 .2.727 1943 Unknown [id number] 2.16.840.1.045034.3.579 .2.727 1943 Unknown [id number] 2.16.840.1.549260.3.579 .2.727 1943 Unknown [id number] 2.16.840.1.654773.3.579 .2.1259 1943 Unknown [id number] 2.16.840.1.704096.3.579 .2.1259 1943 Unknown [id number] 2.16.840.1.751784.3.579 .2.1259 1943 Unknown [id number] 2.16.840.1.014821.3.579 .2.1259 1943 Unknown [id number] 2.16.840.1.272322.3.579 .2.1259 1943 Unknown [id number] 2.16.840.1.698352.3.579 .2.1259 1943 Unknown [id number] 2.16.840.1.565163.3.579 .2.1259 Medicare [id number] Social History Date Type Detail Facility Start: 03-04-2024 End: 07-22-2024 Sex Assigned At [facility] Tobacco smoking status No Smokin g Status Entered [facility] Start: 04-10-2023 End: 10-02-2023 Tobacco smoking status NHIS Never smoked tobacco (finding) [facility] Start: 1945 Sex Assigned At Female F [facility] Start: 04-10-2023 Tobacco use and exposure Smokeless tobacco non-user [facility] Start: 03-04-2024 End: 07-22-2024 Alcoholic beverage intake Lifetime non-drinker (finding) [facility] Start: 03-04-2024 End: 07-22-2024 History of Social function [facility] Start: 08-25-2023 Alcohol Comment caffeine intak e:1-2 cups per day [facility] Start: 1945 Sex assigned at Not on file [facility] Start: 06-28-2024 Sex Female (finding) [facility] Medical Equipment Procedure Code Equipment Code Equipment Origin al Text Equipment Identifier Dates USE 1 STRIP TO C HECK GLUCOSE ONCE DAILY Start: 03-31-2023 Functional Status Date Assessment Result Facility 09-02-2023 Functional Status N/A [facility] 07-03-2023 Functional Status N/A [facility] Clinical Notes 09-18-2022 to 07-27-2024 Cheikh Bell DPM - 07/27/2024 10:00 AM Antelmo Castillo MD - 07/22/2024 10:30 AM Skip Bell DPM - 05/17/2024 10:00 AM EDT Note Date & Type Note Facility 07-27-2024 History of Presen t illness Narrative Images from the original note were not included. History of Present Illness Diabetic/Routine Nail Care: Patient presents in office today for diabetic nail care. No other concerns. Location: nails on bilateral feet. Severity of symptoms: mild. Onset:gradual. Status: no change. Context: hard to trim, hard to reach. NAILS: thickened, discolored, pain. Relieved by: debridement, filing down nails, clipping nails. History of ulcers/wounds: no. Recent BS reading, if diabetic: 78, A1c 6.9 PCP: Dr. Jag Yee. Date of Last visit: 04/21/2024 Aggravated by: shoe gear, pressure. Risk factors: diabetes. Allergies NSAIDs Adhesive Codeine Fexofenadine Amoxicillin Neosporin Prilosec Claritin Examination General Examination: GENERAL EXAMINATION: alert, well hydrated, in no distress , awake, aware of surroundings. FOOT EXAM: Date of Last Foot Exam 07/27/24 Vascular: DORSALIS PEDIS PULSE: 1/4, bilaterally. POSTERIOR TIBIAL PULSE: 1/4, bilaterally. TEMPERATURE GRADIENT: warm to cool. EDEMA: none. CAPILLARY FILLING TIME(sec): less than 3 seconds. Neurologic: VIBRATORY:normal. SEMMES-GIAN 5.07 MONOFILAMENT: normal. Dermatologic: HYPERKERATOSIS: right metatarsal head sub 1. NAIL PATHOLOGY: digits 1-5 bilateral are intact. SKIN PATHOLOGY: thin, atrophic, decreased hair growth. Nail Pathology: Left Foot: 1 (great toe)Long, Thick, Deformed, Discolored, Dystrophic. 2Long, Thick, Deformed, Discolored, Dystrophic. 3Long, Thick, Deformed, Discolored, Dystrophic. 4Long, Thick, Deformed, Discolored, Dystrophic. 5Long, Thick, Deformed, Discolored, Dystrophic. Nail Pathology: Right Foot: 1 (great toe)Long, Thick, Deformed, Discolored, Dystrophic, mikld incurvated to the lateral nail fold. 2Long, Thick, Deformed, Discolored, Dystrophic. 3Long, Thick, Deformed, Discolored, Dystrophic. 4Long, Thick, Deformed, Discolored, Dystrophic. 5Long, Thick, Deformed, Discolored, Dystrophic. Orthopedic: FOOT MORPHOLOGY: Bilateral foot fat pad atrophy. JOINT RANGE OF MOTION: Full ROM without pain or crepitus. DEFORMITIES: Bilateral acquired digital deformites to bilateral digits 1. MUSCLE STRENGTH: 5/5 for all pedal groups tested. Modifier: -Q9. Assessments 1. Pain in right foot - M79.671 2. Dermatophytosis of nail - B35.1 (Primary) 3. Pain of left foot - M79.672 4. Type 2 diabetes mellitus with diabetic neuropathy - E11.40 5. Ingrown nail - L60.0 6. Circulating anticoagulants - D68.318 7. 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 Plantar fat pad atrophy of right foot - M21.6X1 9. Corns and callosities - L84 Treatment: 1. All mycotic and/or dystrophic nails were debrided in length and thickness by manual and mechanical means. 2. Advised patient of proper foot care to prevent any future complications including daily monitoring of the feet. 3. RTC: 9-12 weeks or as needed if problems arise as patient would like to continue to come in for routine nail care appointments to prevent future pain and problems developing from the overgrowth of the toenails. CPT 39594 documented in this encounter [facility] 07-22-2024 History of Presen t illness Narrative Assessment/Plan Diabetes Mellitus without sign of diabetic retinopathy on dilated retinal examination today OU: Discussed the pathophysiology of diabetes and its effect on the eye. Stressed the importance of strong glucose control. Advised of importance of at least yearly dilated examinations, but to contact us immediately for any problems or concerns. documented in this encounter [facility] 05-17-2024 History of Presen t illness Narrative Images from the original note were not included. History of Present Illness Diabetic/Routine Nail Care: Patient presents in office today for diabetic nail care. No other concerns. Location: nails on bilateral feet. Severity of symptoms: mild. Onset:gradual. Status: no change. Context: hard to trim, hard to reach. NAILS: thickened, discolored, pain. Relieved by: debridement, filing down nails, clipping nails. History of ulcers/wounds: no. Recent BS reading, if diabetic: 78, A1c 6.9 PCP: Dr. Jag Yee. Date of Last visit: 04/21/2024 Aggravated by: shoe gear, pressure. Risk factors: diabetes. Allergies NSAIDs Adhesive Codeine Fexofenadine Amoxicillin Neosporin Prilosec Claritin Examination General Examination: GENERAL EXAMINATION: alert, well hydrated, in no distress , awake, aware of surroundings. FOOT EXAM: Date of Last Foot Exam 05/17/24 Vascular: DORSALIS PEDIS PULSE: 1/4, bilaterally. POSTERIOR TIBIAL PULSE: 1/4, bilaterally. TEMPERATURE GRADIENT: warm to cool. EDEMA: none. CAPILLARY FILLING TIME(sec): less than 3 seconds. Neurologic: VIBRATORY:normal. SEMMES-GIAN 5.07 MONOFILAMENT: normal. Dermatologic: HYPERKERATOSIS: right metatarsal head sub 1. NAIL PATHOLOGY: digits 1-5 bilateral are intact. SKIN PATHOLOGY: thin, atrophic, decreased hair growth. Nail Pathology: Left Foot: 1 (great toe)Long, Thick, Deformed, Discolored, Dystrophic. 2Long, Thick, Deformed, Discolored, Dystrophic. 3Long, Thick, Deformed, Discolored, Dystrophic. 4Long, Thick, Deformed, Discolored, Dystrophic. 5Long, Thick, Deformed, Discolored, Dystrophic. Nail Pathology: Right Foot: 1 (great toe)Long, Thick, Deformed, Discolored, Dystrophic, mikld incurvated to the lateral nail fold. 2Long, Thick, Deformed, Discolored, Dystrophic. 3Long, Thick, Deformed, Discolored, Dystrophic. 4Long, Thick, Deformed, Discolored, Dystrophic. 5Long, Thick, Deformed, Discolored, Dystrophic. Orthopedic: FOOT MORPHOLOGY: Bilateral foot fat pad atrophy. JOINT RANGE OF MOTION: Full ROM without pain or crepitus. DEFORMITIES: Bilateral acquired digital deformites to bilateral digits 1. MUSCLE STRENGTH: 5/5 for all pedal groups tested. Modifier: -Q9. Assessments 1. Pain in right foot - M79.671 2. Dermatophytosis of nail - B35.1 (Primary) 3. Pain of left foot - M79.672 4. Type 2 diabetes mellitus with diabetic neuropathy - E11.40 5. Ingrown nail - L60.0 6. Circulating anticoagulants - D68.318 7. 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 Plantar fat pad atrophy of right foot - M21.6X1 9. Corns and callosities - L84 Treatment 1.Dermatophytosis of nail Notes: 1. Nails were debrided in length and thickness by manual and mechanical means. 2. Advised patient on continued proper diabetic foot care including daily monitoring of their feet for any new complaints or concerns that may arise. 3. Discussed importance of tight blood sugar control to prevent future complications. 4. RTC: 9-12 weeks or as needed if problems arise. . Callous: 1. Hyperkeratosis/porokeratosis as above noted was debrided. 2. Instructed patient on use of aperture pads or Silipos padding/toe spacers to prevent rubbing and continued development of the hyperkeratosis. 3. Also discussed use of moisturizing creams for overall increased hydration to the skin. 4. Discussed continued use of proper foot gear to avoid excess pressure over the callous site. CPT 82058, 73812 documented in this encounter [facility] 04-13-2024 Evaluation note Diagnosis Onset Date Resolution ASHD (arteriosclerotic heart disease) acute April 13, 2024 10:22am Gastroesophageal reflux disease with esophagitis without hemorrhage acute April 10:22am Hypercholesterolemia acute Apr 10:22am Hypothyroid acute April 10:22am Medicare annual wellness visit, subsequent acute April 13, 2024 10:22am Primary hypertension acute Apr 10:22am Screening mammogram for breast cancer acute April 13, 2024 10:22am Thyroid nodule acute April 13, 2024 10:22am Type 2 diabetes mellitus with hyperglycemia acute April 10:22am Cellulitis of leg without foot, right acute April 21, 2024 11:34am Laceration of leg not thigh, right acute April 21, 2024 11:34am Type 2 diabetes mellitus with hyperglycemia acute April 11:34am Cellulitis of leg without foot, right acute April 30, 2024 10:56am Laceration of leg not thigh, right acute April 30, 2024 10:56am Type 2 diabetes mellitus with hyperglycemia acute April 10:56am [facility] Work Phone: [phone]) 975-517102-05-2024 Evaluation note* Encounter Date Diagnosis Assessment Notes Treatment Notes Treatment Clinical Notes Sep, Primary hypertension (ICD-10 - I10) Sep, ASHD (arteriosclerotic heart disease) (ICD-10 - I25.10) Sep, Autoimmune thyroiditis (ICD-10 - E06.3) Sep, Hyperlipidemia type II (ICD-10 - E78.01) Sep, Controlled type 2 diabetes mellitus with hyperglycemia, without long-term current use of insulin (ICD-10 - E11.65) [facility] Other 01-23-2024 Hospital Discharge instructions Patient Education [...] include: ?8 oz (237 mL) of milk, suurrzu-spdjtfjbicfr-sjisv milk, and calcium- fortifiedfruit juice. Calcium-fortified means [...] ?Spinach (cooked), rhubarb, beets, sweet potatoes, and Bahraini chard. ?Peanuts. ?Potato chips, barbadian fries, and baked potatoes with skin on. ?Nuts and nut products. ?Chocolate. If you regularly take a diuretic medicine, make sure to eat at least 1 or 2 servings of fruits or vegetables that are high in potassium each day. These include: ?Avocado. ?Banana. ?Tensas, prune, carrot, or tomato juice. ?Baked potato. [...] magnesium, fish oil, or vitamin B6. Take nhbr-fqu-lknbbnw and prescription medicines only as told by [...] Casseroles. Pizza. Lasagna. Frozen meals. Potato chips. Latvian fries. The items listed above may not [...] provider. Document Revised: 11/07/2022 Document Reviewed: 11/07/2022 [employer] Patient Education 2022 [employer] Follow Up Care 06/30/2023 13:02:17 With:JEISON HEARN, Andry Carcamo, URL Address: [address] [address]- When:Within 1 Year(s) Comments:peggy/DANIAL [facility] [phone] Evaluation note* Encounter Date Diagnosis Assessment Notes [...] or drinking prior to bedtime. Weight loss. [facility] Other 11-14-2023 Evaluation note* Encounter Date Diagnosis [...] and at increased risk for prolonged illness [facility] Other 08-21-2023 Evaluation note* Encounter Date Diagnosis Assessment Notes Treatment Notes Treatment Clinical Notes Mar, Controlled type 2 diabetes mellitus with hyperglycemia, without long-term current use of insulin (ICD-10 - E11.65) [facility] Other 08-17-2023 Evaluation note* Encounter Date Diagnosis [...] Instructed on monthly SBE and yearly mammogram [facility] Other 07-17-2023 Evaluation note* Encounter Date Diagnosis Assessment Notes Treatment Notes Treatment Clinical Notes Feb, Superficial abscess of perineum (ICD-10 - L02.215) Warm soaks daily Keep area clean and dry Begin antibiotics. REcheck in 5 days Feb, Controlled type 2 diabetes mellitus with hyperglycemia, without long-term current use of insulin (ICD-10 - E11.65) INcreases risk for prolonged, serious infection. [facility] Other 07-06-2023 Note [id number]:[address] [place] [address] 02-13-2023 [id number]:[address] [place], [place] 2064007-03-2023 NoteCystoscopy with Stent Removal ? Voiding after [...] if you have a fever over 100 degrees.[facility] 02-10-2023 Hospital Discharge instructions Patient Education [...] Care 01/22/2023 09:52:05 With:Andry MCHUGH Address: [address] [id number] [facility] (1) When:6 months Comments:Call for followup appointment in about six months with an abdominal X- ray prior to your visit (my office needs to send an order for this study)I will get records from the [facility] to see what the CAT scan demonstrated in terms of whether or not you have more stones in your kidneys. This may change the follow-up date depending on findings.Have a great day! [facility]06-27-2023 Evaluation note* Encounter Date Diagnosis Assessment [...] High risk medication use (ICD-10 - Z79.899) [facility] Other 05-11-2023 Evaluation note* Encounter Date Diagnosis [...] mammogram for breast cancer (ICD-10 - Z12.31) [facility] Other 03-07-2023 Evaluation note* Encounter Date Diagnosis [...] to continue exercise and AHA diet plan. [facility] Other 02-08-2023 Evaluation note* Encounter Date Diagnosis [...] - E06.3) Euthyroid, TSH yearly w/ MWE [facility] Other Evaluation + Plan note No data available for this section [facility] Future Appointments Appointment Date:08/24/2024 09:45:00 AM Scheduled Provider:Andry MCHUGH MD Location:[facility] Appointment Type:URO Office Visit [facility] evalufaqla noteNo InformationNort [facility] Other Evalucayto note* Diagnosis Onset Date Resolution Status ASHD (arteriosclerotic heart disease) acute Gastroesophageal reflux dise ase with esophagitis without hemorrhage acute Hyperlipidemia type II acute Hypothyroid acute Primary hypertension acute Type 2 diabetes mellitus with hyperglycemia acute [facility] Work Phone: evaluation note* Diagnosis Onset Date Resolution Status ASHD (arteriosclerotic heart disease) acute Gastroesophageal reflux dise ase with esophagitis without hemorrhage acute Hypercholesterolemia acute Hypothyroid acute Medicare annual wellness visit, subsequent acute Primary hypertension acute Screening mammogram for breast cancer acute Thyroid nodule acute Type 2 diabetes mellitus with hyperglycemia acute [facility] Work Phone: evaluation note* Diagnosis Onset Date Resolution Status ASHD (arteriosclerotic heart disease) acute Gastroesophageal reflux dise ase with esophagitis without hemorrhage acute Hypercholesterolemia acute Hypothyroid acute Medicare annual wellness visit, subsequent acute Primary hypertension acute Screening mammogram for breast cancer acute Thyroid nodule acute Type 2 diabetes mellitus with hyperglycemia acute Cellulitis of leg without foot, right acute Laceration of leg not thigh, right acute Type 2 diabetes mellitus with hyperglycemia acute Cellulitis of leg without foot, right acute Laceration of leg not thigh, right acute Type 2 diabetes mellitus with hyperglycemia acute [facility] Work Phone: evaluation note* Diagnosis Onychomycosis- Primary Dermatophytosis of nail Pain in both feet Type II diabetes mellitus with neurological manifestations (CMS/HCC) Type II or unspecified type diabetes mellitus with neurological manifestations, not stated as uncontrolled Corns and callosities documented in this encounter [facility] HealthcareEvaluation note* Diagnosis Type 2 diabetes mellitus without complication, with long-term current use of insulin ([facility])- Primary Pseudophakia Lens replaced by other means documented in this encounter [facility] HealthcareEvaluation note* Diagnosis Onychomycosis- Primary Dermatophytosis of nail Pain in both feet Type II diabetes mellitus with neurological manifestations ([facility]) Type II or unspecified type diabetes mellitus with neurological manifestations, not stated as uncontrolled documented in this encounter [facility] Narrative - Reported* Type Description Date [...] BREAST HX 2001 Hospitalization History SEE SURGICAL [facility] Other [facility] general Narrative - Reported* Type Description Date [...] placement 01/2023 Hospitalization History SEE SURGICAL [facility] Other Progress note No data available for this section [facility] Summary Purpose Family History No Family History Records FoundNo Family History Records FoundNo Family History Records Found No data available for this section No Family History Records Found Advance Directives No Advanced Directives Records Found Advance Directive Response Recorded Date/ Time Advance Directives No August 30, 2023 3:04pm Advance Directive Response Recorded Date/ Time Advance Directives No May 31, 2024 10:23am Advance Directive Response Recorded Date/ Time Advance Directives No May 31, 2024 9:23am Chief Complaint and Reason for Visit Chief Complaint 3 month follow up Reason for Visit ASHD (arteriosclerot ic heart disease) Gastroesophageal reflux disease with esophagitis without hemorrhage Hyperlipidemia type II Hypothyroid Primary hypertension Type 2 diabetes mellitus with hyperglycemia Chief Complaint wellness Reason for Visit ASHD (arteriosclerot ic heart disease) Gastroesophageal reflux disease with esophagitis without hemorrhage Hypercholesterolemia Hypothyroid Medicare annual wellness visit, subsequent Primary hypertension Screening mammogram for breast cancer Thyroid nodule Type 2 diabetes mellitus with hyperglycemia Chief Complaint wellness leg redness Reason for Visit ASHD (arteriosclerot ic heart disease) Gastroesophageal reflux disease with esophagitis without hemorrhage Hypercholesterolemia Hypothyroid Medicare annual wellness visit, subsequent Primary hypertension Screening mammogram for breast cancer Thyroid nodule Type 2 diabetes mellitus with hyperglycemia Chief Complaint wellness leg redness one week f/u Reason for Visit ASHD (arteriosclerot ic heart disease) Gastroesophageal reflux disease with esophagitis without hemorrhage Hypercholesterolemia Hypothyroid Medicare annual wellness visit, subsequent Primary hypertension Screening mammogram for breast cancer Thyroid nodule Type 2 diabetes mellitus with hyperglycemia Cellulitis of leg without foot, right Laceration of leg not thigh, right Type 2 diabetes mellitus with hyperglycemia Cellulitis of leg without foot, right Laceration of leg not thigh, right Type 2 diabetes mellitus with hyperglycemia Chief Complaint wellness leg redness one week f/u flu Reason for Visit ASHD (arteriosclerot ic heart disease) Gastroesophageal reflux disease with esophagitis without hemorrhage Hypercholesterolemia Hypothyroid Medicare annual wellness visit, subsequent Primary hypertension Screening mammogram for breast cancer Thyroid nodule Type 2 diabetes mellitus with hyperglycemia Cellulitis of leg without foot, right Laceration of leg not thigh, right Type 2 diabetes mellitus with hyperglycemia Cellulitis of leg without foot, right Laceration of leg not thigh, right Type 2 diabetes mellitus with hyperglycemia Chief Complaint Admit Date wellness April 13, 2024 10:22am leg redness April 21, 2024 11:34am one week f/u April 30, 2024 10:56am flu May 31, 2024 1 0:25am cold/COVID negative June 28, 2024 1:36pm Reason for Visit Admit Date ASHD (arteriosclerotic heart disease) Se ptember 2023 10:22am Gastroesophageal reflux dise ase with esophagitis without hemorrhage April 13, 2024 10:22am Hypercholesterolemia April 13, 2024 10:22am Hypothyroid April 13, 2024 10:22am Medicare annual wellness visit, subseque nt April 13, 2024 10:22am Primary hypertension April 13, 2024 10:22am Screening mammogram for breast cancer Se pt2023 10:22am Thyroid nodule April 13, 2024 10:22am Type 2 diabetes mellitus with hyperglyce elena April 13, 2024 10:22am Cellulitis of leg without foot, right Se ptember 2023 11:34am Laceration of leg not thigh, right Septe mber 2023 11:34am Type 2 diabetes mellitus with hyperglyce elena April 21, 2024 11:34am Cellulitis of leg without foot, right Se ptember 2023 10:56am Laceration of leg not thigh, right Septe mber 2023 10:56am Type 2 diabetes mellitus with hyperglyce elena April 30, 2024 10:56am Additional Source Comments INFORMATION SOURCE (unrecogn ized section and content) DATE CREATED AUTHOR 01/29/2018 [facility] DATE CREATED AUTHOR AUTHOR'S ORGANIZ ATION 11/16/2022 [facility] DATE CREATED AUTHOR AUTHOR'S ORGANIZ ATION 07/01/2023 [facility] DATE CREATED AUTHOR AUTHOR'S ORGANIZ ATION 07/30/2024 [facility] EPIC REASON FOR VISIT (unrecogniz ed section and content) Reason Comments Eye Exam Diabetic Eye Exam Patient Care team informatio n (unrecognized section and content) Team Status: Active Member Role Status Dates Ruiz Yee DO Primary Care Provider Active Team Status: Inactive Member Role Status Dates Ruiz Yee DO Primary Care Provide r, Attending Provider Active Start: April 13, 2024 End: April 13, 2024 Team Status: Active Member Role Status Dates Ruiz Yee DO Primary Care Provide r, Attending Provider Active Start: October 13, 2023 Team Status: Inactive Member Role Status Dates Ruiz Yee DO Primary Care Provide r, Attending Provider Active Start: January 07, 2024 End: January 07, 2024 Team Status: Active Member Role Status Dates Ruiz Yee DO Primary Care Provide r, Attending Provider Active Start: April 21, 2024 Team Status: Inactive Member Role Status Dates Ruiz Yee DO Primary Care Provide r, Attending Provider Active Start: April 21, 2024 End: April 21, 2024 Team Status: Inactive Member Role Status Dates Ruiz Yee DO Primary Care Provide r, Attending Provider Active Start: April 30, 2024 End: April 30, 2024 Living Nurse Relationship Specialty Start Date End Date Ruiz Yee MD [address] [id number] PCP - General Internal Medicine 04/10/23 Living Nurse Relationship Specialty [place] [address] [place], [place] [id number] PCP - General Internal Medicine 04/10/23 Team Status: Inactive Member Role Status Dates Ruiz Yee DO Primary Care Provide r, Attending Provider Active Start: May 31, 2024 End: May 31, 2024 Team Status: Inactive Member Role Status Dates Ruiz Yee DO Primary Care Provide r, Attending Provider Active Start: June 28, 2024 End: June 28, 2024 Living Nurse Relationship Specialty Start Date End Date Ruiz Yee MD [address] [place] [id number] PCP - General Internal Medicine 04/10/23 Living Nurse Relationship Specialty Start Date End Date Ruiz Yee MD [address] [place] [phone] PCP - General Internal Medicine 04/10/23 Living Nurse Relationship Specialty Start Date End Date Ruiz Yee MD [address] [place] [phone] PCP - General Internal Medicine 04/10/23 Living Nurse Relationship Specialty Start Date End Date Ruiz Yee MD [address] [place] [phone] PCP - General Internal Medicine 04/10/23 Goals (unrecognized section and content) Goals may be documented in a n alternate section FOR RECORDS PERTAINING TO PATIENTS WHO ARE [...] BE BASED ON THE PRIMARY CLINICAL RECORDS. [employer] [facility]. provides no warranty or guarantee of the accuracy or completeness of information in this document.
== END 2024-08-23 10:37 | disposition home or self-care (01) ==
LOC: RAD 10:37
PROVIDERS: PCP Internal Medicine; Visit Provider Urology
DX: N20.0 Calculus of kidney (principal)
CPT/HCPCS: 74018

== ENCOUNTER 2024-10-25 12:09 | Outpatient (OUT) | payer MEDICARE, OTHER, SELFPAY ==
--- OUTSIDE RECORDS SUMMARY | 2024-10-25 12:24 | XMS_ITS | CCD ---
Author Organization [facility] Care Team Providers Care Director Of Cath Lab Name Role Phone SELF, REFERRED Unavailable Unavailable ZACHARIAH, RUIZ Unavailable Unavailable JACKI LIRA Unavailable Unavailable FARHAT KRUNAL Unavailable Unavailable AK Unavailable Unavailable MICKI BRO Unavailable Unavailable AK Unavailable Unavailable JACKI LIRA Unavailable Unavailable PHYSICIAN, [...] Unavailable HAY ., DR OLMSTEAD Admitting Unavailable JAZZ MASON Consulting Unavailable RUIZ YEE Primary Care Physician Ruiz Yee MD Primary Care Provider Andry MCHUGH Attending Unavailable Andry MCHUGH Attending Unavailable CHEIKH BELL Attending Unavailable CHEIKH BELL Attending Unavailable CHEIKH BELL Attending Unavailable CHEIKH BELL Attending Unavailable CHEIKH BELL Attending Unavailable SHERITA CASTILLO Attending Unavailable CHEIKH BELL Attending Unavailable Allergies Allergy Classification Reported Allergen(s) Allergy Type Date of Onset Reaction(s) Facility (3 sources) amoxicillin; Translations: [amoxicillin] Drug Allergy 12-07-19 14 [facility] Repository (3 sources) amoxicillin / clavulanate; Translations: [Augmentin] Drug Allergy 02-21-20 13 [facility] Repository (3 sources) codeine; Translations: [codeine] Drug Allergy 02-21-20 13 [facility] Repository (2 sources) desonide Drug Allergy 12-07-19 14 [facility] Repository (8 sources) fexofenadine Drug Allergy 09-15-19 18 [facility] Repository (16 sources) loratadine; Translations: [Claritin] Drug Allergy 02-21-20 13 Unknown [facility] Repository (3 sources) naproxen; Translations: [Naprosyn] Drug Allergy 12-07-19 14 [facility] Repository (2 sources) NSAIDs Drug allergy (disorder) 02-14-20 13 [facility] Repository (3 sources) omeprazole; Translations: [PriLOSEC] Drug Allergy 02-21-20 13 [facility] Repository (8 sources) oxyCODONE Drug Allergy 02-21-20 13 [facility] Repository (20 sources) fexofenadine; Translations: [Beckie] Drug Allergy 12-07-19 14 Unknown (qualifier value) [facility] Repository (14 sources) Loratadine; Translations: [loratadine] Drug Allergy 01-07-20 24 Unknown (qualifier value) [facility] (20 sources) oxyCODONE Drug Allergy 06-28-20 24 Unknown [employer] Other (10 sources) Substance with penicillin structure and antibacterial mechanism of action (substance) Drug allergy Unknown [employer] Other (18 sources) PCN-200 Propensity to adverse reactions Unknown [employer] Other (2 sources) Bacitracin / Neomycin / Polymyxin B; Translations: [Neosporin] Drug Allergy 02-21-20 13 [facility] Repository (4 sources) Adhesive Tape; Translations: [Tape] Allergy to substance unknown [facility] (3 sources) Amoxicillin; Translations: [amoxicillin] Drug Allergy Unknown (qualifier value) [facility] (3 sources) Amoxicillin / Clavulanate; Translations: [amoxicillin-clav ulanate] Drug Allergy Unknown (qualifier value) [facility] (3 sources) bacitracin / neomycin / polymyxin b; Translations: [bacitracin/neomy abisai/polymyxin B topical] Drug Allergy Redness [facility] (8 sources) Codeine; Translations: [codeine] Drug Allergy 07-22-20 24 Unknown (qualifier value) [facility] (12 sources) Ibuprofen; Translations: [ibuprofen] Drug Allergy 04-10-20 Unknown (qualifier value) [facility] (14 sources) Naproxen; Translations: [naproxen] Drug Allergy 04-10-20 Unknown (qualifier value), Other, Unknown [facility] (8 sources) Non-steroidal anti-inflammatory agent; Translations: [NSAIDs] Drug allergy 06-28-20 24 Unknown [facility] Comment on above: swelling of lips (8 sources) Omeprazole; Translations: [omeprazole] Drug Allergy 07-22-20 24 Unknown (qualifier value) [facility] (10 sources) Acetaminophen / oxyCODONE Drug Allergy oxyCODONE-Acet aminophen [employer] Other (10 sources) Non-steroidal anti-inflammatory agent Drug allergy Unknown [employer] Other (10 sources) Penicillin Drug Allergy Unknown [employer] Other (2 sources) Beckie Allergy Drug allergy Unknown [employer] Other (2 sources) patient allergy list reviewed by nurse or physicia Propensity to adverse reactions 04-02-20 Comment:Done [employer] Other (10 sources) Claritin-D 12 Hour Drug allergy Unknown [employer] Other (11 sources) Penicillins Allergy to substance 01-07-20 [facility] (6 sources) NSAIDS (Non-Steroidal Anti-Inflamma Allergy to substance 01-07-20 [facility] (5 sources) Bacitracin / Polymyxin B Drug Allergy 07-22-20 [facility] (5 sources) fexofenadine Drug Allergy 06-28-20 Unknown [facility] (5 sources) Loratadine Allergy to substance 06-28-20 [facility] (5 sources) Amoxicillin-Pot Clavulanate Drug Allergy 07-22-20 [facility] Work Phone: (5 sources) Wound Dressing Adhesive Drug Allergy 07-22-20 [facility] (1 source) Naproxen; Translations: [Aleve] Drug Allergy [facility] Repository (1 source) NSAIDs; Translations: [NSAIDs] Propensity to adverse reactions (disorder) [facility] Repository Medications Current Medications Medication Drug Class(es) Dates Sig (Normalized) Sig (Original) Aspirin (11 sources) Platelet Aggregation Inhibitor, Nonsteroidal Anti-inflammatory Drug [...] Oct, Not-Taking/PRN cholecalciferol 0.025 mg oral capsule (8 sources) Vitamin D take 1 capsule by [...] Active doxycycline hyclate 100 mg oral capsule (18 sources) Tetracycline-class Drug Start: 04-30-2024 End: 06-28-2024 doxycycline (Vibramycin) 100 MG capsule Once 06/28/2024 Active Start: 04-13-2024 End: 04-30-2024 take 1 capsule by mouth twice daily Doxycycline Hyclate 100 mg capsule Discontinued 100 MG PO Twice daily 30 05April 21, 2024 11:31am April 30, 2024 10:17am erythromycin 0.005 mg/mg ophthalmic ointment (8 sources) Macrolide, Macrolide Antimicrobial Start: 05-23-2022 erythromycin [...] 02/10/2023 Active levoFLOXacin 750 mg oral tablet (8 sources) Quinolone Antimicrobial Start: 01-18-2023 take 1 [...] 02/10/2023 Active metroNIDAZOLE 500 mg oral tablet (17 sources) Nitroimidazole Antimicrobial Start: 02-24-2023 metroNIDAZOLE (Flagyl) 500 MG tablet 02/24/2023 Active mupirocin 0.02 mg/mg topical ointment (10 sources) RNA Synthetase Inhibitor Antibacterial Start: 04-13-2024 mupirocin (Bactroban) 2 % ointment 04/13/2024 Active Start: 04-13-2024 Mupirocin 2 % ointment Active 1 APPLIC TOPICAL Twice daily 01 06April 12, 2024 11:00pm ondansetron 4 mg disintegrating oral tablet (8 sources) Serotonin-3 Receptor Antagonist Start: 01-18-2023 take 1 tablet by mouth once daily as needed for nausea and vomiting ondansetron ODT (Zofran-ODT) 4 MG disintegrating tablet DISSOLVE 1 TABLET IN MOUTH ONCE DAILY NEEDED FOR NAUSEA AND VOMITING FOR 4 DAYS 01/18/2023 Active pantoprazole 40 mg delayed release oral tablet (8 sources) Proton Pump Inhibitor take 1 tablet [...] Active tamsulosin hydrochloride 0.4 mg oral capsule (8 sources) alpha-Adrenergic Renard Start: 01-18-2023 take 1 capsule by mouth every twenty-four hours in the morning tamsulosin (Flomax) 0.4 MG 24 hr capsule Take 0.4 mg by mouth in the morning. 01/18/2023 Active triamcinolone acetonide 1 mg/ml topical cream (8 sources) Corticosteroid triamcinolone (Kenalog) 0.1 % cream Active Vitamin D (3 sources) Start: 02-10-2023 Vitamin D Refills(s) 0 [...] afterwards, # 2 tab(s), Refills(s) 0, Pharmacy: [facility] 1988 01/22/2023 Active Suprep Bowel Prep [...] Coronary arteriosclerosis; Translations: [Atherosclerotic heart disease of [place] coronary artery without angina pectoris] Onset: 09-25-2017 Chronic Diabetes mellitus with complications (20 sources) Hyperglycemia due to type 2 diabetes mellitus; Translations: [Type 2 diabetes mellitus with hyperglycemia] Onset: 11-23-2013 Chronic Diabetes mellitus without complication (8 sources) Type 2 diabetes mellitus without complications; [...] Translations: [Diverticulosis] Onset: 03-22-2014 Chronic Epilepsy; convulsions (2 sources) Seizure 09-02-2023 Episodic Esophageal disorders (16 sources) Gastro-esophageal reflux disease with esophagitis; Translations: [Gastroesophageal reflux disease with esophagitis without hemorrhage] 10-02-2023 Chronic Essential hypertension (20 sources) Essential (primary) hypertension; Translations: [Essential hypertension] Onset: 05-16-2014 Chronic Fluid and electrolyte disorders (16 sources) Dehydration; Translations: [Hypo-osmolality and hyponatremia] Onset: 01-10-2022 Episodic Genitourinary symptoms and ill-defined conditions (2 sources) Stress incontinence (female) (male); Translations: [Female stress incontinence] Onset: 08-24-2024 Chronic Genitourinary symptoms and ill-defined conditions (4 sources) [...] 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 Mycoses (3 sources) Onychomycosis; Translations: [Tinea unguium] 05-17-2024 Episodic [...] 12-25-2017 Chronic Other aftercare (2 sources) Other director long term care (current) drug therapy; Translations: [OTH SHELTER CURRENT DRUG THERAPY] Onset: 03-22-2022 Episodic Other aftercare (4 sources) Long-term current use of drug therapy; Translations: [Other director long term care (current) drug therapy] Episodic Other and [...] respiratory systems] Episodic Other connective tissue disease (3 sources) Pain in both feet; Translations: [Pain [...] [Contact with and (suspected) exposure to COVID-19] Urinary tract infections (18 sources) Acute cystitis; [...] Onset: 11-22-2014 Episodic Other aftercare (1 source) prison (current) use of aspirin; Translations: [SHELTER CURRENT USE OF ASPIRIN] Onset: 01-10-2022 Episodic Other aftercare (1 source) prison (current) use of oral hypoglycemic drugs; Translations: [TRAINING COORDINATOR USE ORAL HYPOGLYCEMIC DX] Onset: 01-10-2022 Episodic Other bone disease and musculoskeletal deformities (1 source) Other specified disorders of bone density and structure, other site; Translations: [OT D/O BONE DEN STRUCT OTH SITE] Onset: [...] COUGH, UNSPECIFIED; Translations: [COUGH, UNSPECIFIED] Onset: 12-26-2021 Unclassified (2 sources) Obstructive hydronephrosis 09-02-2023 Viral infection (20 sources) Disease caused by 2019-nCoV; Translations: [COVID-19] Onset: 12-28-2021 Results Test Name Value Interpretation Reference Range Facility Ambulatory Visit Summaryon 0 08-24-2024 Ambulatory Visit Summary Ambulatory Visit Summary COPELANDESSENCE GUTIERREZSVETLANA Cristobal :1945 Visit Date:08/24/2024 Ambulatory Visit Instructions Your Care Team Primary Care Physician - RUIZ YEE DO This Is Your Medications List aspirin atorvastatin (atorvastatin 40 mg Tab) ergocalciferol (Vitamin D) hydrochlorothiazide-lisinopril levothyroxine (levothyroxine 75 mcg (0.075 mg) Tab) metformin metoprolol (metoprolol 25 mg ER Tab) Medications What How Much When Instructions Unchanged aspirin 81 Milligram Unchanged atorvastatin (atorvastatin 40 mg Tab) Unchanged ergocalciferol (Vitamin D) Unchanged hydrochlorothiazide-lisinopril Unchanged levothyroxine (levothyroxine 75 mcg (0.075 mg) Tab) Unchanged metformin 500 Milligram Unchanged metoprolol (metoprolol 25 mg ER Tab) Allergies Advil (Unknown) Aleve (Unknown) Beckie (Unknown) Augmentin (Unknown) Claritin (Unknown) NSAIDs (Swelling) Naprosyn (Unknown) Neosporin (Redness) PriLOSEC (Unknown) Tape (unknown) amoxicillin (Unknown) codeine (Unknown) Problems Ongoing - Any problem that you are currently receiving treatment for. Diabetes mellitus Flank pain HTN (hypertension) Hyperlipidemia Hypothyroidism Kidney stone Personal history of kidney stones Seizures Stress incontinence, female Historical - Any problem that you are no longer receiving treatment for. Ureteral calculus Ureteral stone with hydronephrosis Patient Survey You may receive a survey via text or e-mail asking about your office visit. Please share your experience with us by completing your survey. We appreciate your feedback and thank you for choosing us for your care. [facility] Reminderson 08-24-2024 Reminders Reminders From: Norah Dawson To: EU - Administrative; Sent: 08/24/2024 11:00:57 EST Show up: 11/07/2025 11:00:00 EDT Subject: 18 MO KUB Due Date/Time: 02/20/2026 11:00:00 EDT Reminder/Recall SCHEDULE W/ MADDI IN 18 MO AND KUB [facility] Urology Office/Clinic Noteon 08-24-2024 Urology Office/Clinic Note Urology Office/Clinic Note Chief Complaint 1 yr F/U w/KUB HPI Staff 1 year follow up w/KUB Previous DX: kidney stone, ureteral stone w/hydronephrosis S/P cysto/LT RG/holmium laser/basket/stent done on 01/17/23, cysto/LT stent removal done on 02/10/23. kub done at [place] yesterday Dysuria: denies Incomplete bladder emptying: denies Hematuria: denies any visual blood Frequency: every 3 hours Urgency: denies Nocturia: 1 x Stream: good stream Leaking: denies Post void dripping:denies Wearing pads/ Depends: sometimes Urge incontinence: denies Stress incontinence: sometimes when sneezing and coughing Incontinence without Sensory Awareness: denies Abdominal pain: denies Flank pain: denies Sexual complaints: denies History of Present Illness Tests reviewed: UA, KUB I have reviewed the previous health record information and history for this patient from Dr. Mchugh. I have reviewed and verified the staff HPI to be accurate for this encounter. Review of Systems PHQ Score Initial Depression Screen Score: 0 SCORE ROS - Provider Constitutional: denies weight loss, denies hot flashes. Eyes: denies eye problems. Gastrointestinal: denies nausea, denies vomiting. Cardiovascular: denies chest pain or angina. Integumentary: no dryness Musculoskeletal: denies musculoskeletal symptoms. ENMT: denies otolaryngeal symptoms. Respiratory: no shortness of breath. Heme/Lymph: denies easy bleeding tendency, denies easy bruising tendency. Psychiatric: no confusion, no anxiety. Genitourinary: See HPI. Physical Exam Vitals & Measurements HR: 63(Peripheral) BP: 146/72 HT: 65 in HT: 165 cm WT: 65.0 kg WT: 143.3 lb BMI: 23.88 General Appearance: alert, no distress, well nourished, well developed female. Assessment/Plan Pt here with her today. 1. Kidney stone (N20.0: Calculus of kidney) Urology consult at [facility] 01/17/23 due to L flank pain. CT scan 01/17/23 - 7 mm stone in the left lower ureter. S/P cysto, L RPG, laser, basket, stent 01/17/23. Stent removal 02/10/23. Stone Analysis - 80% CaOx mono, 20% CaOx di. KUB 08/20/23 - Neg. KUB 08/23/24 [facility] - Neg. UpH 6.0, likely no uric acid stones. Reviewed imaging with pt. Pt understands there may be tiny stones present that the xray couldn't visualize. Had stone in 2005 then stone in 2022. Can extend frequency of xray given no stones formed. Pt agreeable with extending visit. Follow up 18 mos with KUB (not ordered, >1yr) or sooner if needed. Pt understands and agrees with plan. -High fluid intake. 2. Stress incontinence, female (N39.3: Stress incontinence (female) (male)) UA shows small leuks. Asx. BBS 11 - Voids at least once an hour, rare UUI, no FI, feels she empties completely, yes LUIS FELIPE. -Not addressed today. The patient is here with her today. She has had no kidney stones or flank pain since last visit. Abdominal x-ray is negative for any obvious calculi. I feel we can now go 18 months with a KUB with one of our JOSE's. Follow-up With When Contact Information JEISON HEARN, Andry Carcamo, URL [address] [place] [id number]- Additional Instructions: 18 mos with KUB (not ordered, >1yr) Patient Education Dietary Guidelines to Help Prevent Kidney Stones I, Vicky Barth, personally scribed for Dr. Mchugh on 08/24/2024 10:21:52. . Documentation recorded by the scribe, Vicky Barth, accurately reflects the services(s) I performed and decisions made by me. Authenticated by Dr. Mchugh on 08/24/2024 10:29:04. Portions of this record may have been created with voice recognition artificial intelligence software, specifically [employer] and or [employer]. Substitutions may have occurred due to the inherent limitations of voice recognition and artificial intelligence software. Problem List/Past Medical History Ongoing Diabetes mellitus Flank pain HTN (hypertension) Hyperlipidemia Hypothyroidism Kidney stone Personal history of kidney stones Seizures Stress incontinence, female Historical Ureteral calculus Ureteral stone with hydronephrosis Medications aspirin, 81 mg atorvastatin 40 mg Tab hydrochlorothiazide-lisinopril levothyroxine 75 mcg (0.075 mg) Tab metformin, 500 mg metoprolol 25 mg ER Tab Vitamin D Allergies Advil (Unknown) Aleve (Unknown) Beckie (Unknown) Augmentin (Unknown) Claritin (Unknown) NSAIDs (Swelling) Naprosyn (Unknown) Neosporin (Redness) PriLOSEC (Unknown) Tape (unknown) amoxicillin (Unknown) codeine (Unknown) Social History Tobacco Never (less than 100 in lifetime) Tobacco Use:., 08/24/2024 Immunizations Vaccine Date Status Comments influenza virus vaccine, inactivated 05/31/2024 Recorded influenza virus vaccine, inactivated 2022 Recorded SARS-CoV-2 (COVID-19) [id number] 07/08/2022 Recorded influenza virus va (more content not included)... Normal [facility] Comment on above: Result Comment: Electronically Signed By : Andry MCHUGH MD P\.br\Date and Time Signed: 08/24/24 10:29 EST\.br\Electronically Co-Signed By: Vicky Barth\.br\Date and Time Co-Signed: 08/24/24 10:22 EST\.br\Electronically Co-Signed By: Vicky Barth P\.br\Date and Time Co-Signed: 08/24/24 10:23 EST\.br\Electronically Co-Signed By: Vicky Barth P\.br\Date and Time Co-Signed: 08/24/24 10:26 EST Basophils Auto (Bld) [#/Vol] on 04-21-2024 Basophils (Bld) [#/Vol] 0.1 10 3/uL 0.0-0.1 [facility] Basophils (Bld) [#/Vol] Automated basophil count 0.0-0.1 [facility] Basophils/100 WBC Auto (Bld) on 04-21-2024 Basophils/100 WBC (Bld) 0.7 % 0.2-2.0 [facility] Basophils/100 WBC (Bld) Automated basophil % 0.2-2.0 [facility] Cholesterol in LDL Calc [Mas s/Vol]on 04-21-2024 Cholesterol in LDL [Mass/Vol] 38.0 mg/dL [facility] Comment on above: <100 mg/dl [id number] mg/dl NEAR OR ABOVE [id number] mg/dl BORDERLINE [id number] mg/dl HIGH>190 mg/dl VERY HIGH Cholesterol in LDL [Mass/Vol] Cholesterol in LDL [Mass/volume] in Serum or Plasma by calculation [facility] Comment on above: <100 mg/dl [id number] mg/dl NEAR OR ABOVE [id number] mg/dl BORDERLINE [id number] mg/dl HIGH>190 mg/dl VERY HIGH Cholesterol in VLDL Calc [Ma ss/Vol]on 04-21-2024 Cholesterol in VLDL [Mass/Vol] 22.4 mg/dL [facility] Cholesterol in VLDL [Mass/Vol] Cholesterol in VLDL [Mass/volume] in Serum or Plasma by calculation [facility] Eosinophils/100 WBC Auto (Bl d)on 04-21-2024 Eosinophils/100 WBC (Bld) 8.1 % High 0.9-7.0 [facility] Eosinophils/100 WBC (Bld) Automated eosinophil % High 0.9-7.0 [facility] Erythrocyte distribution wid th Auto (RBC) [Ratio]on 04-21-2024 Erythrocyte distribution width (RBC) [Ratio] 12.8 % 11.0-15.0 [facility] Erythrocyte distribution width (RBC) [Ratio] Erythrocyte distribution width [Ratio] by Automated count 11.0-15.0 [facility] Estimated glomerular filtrat ion rate (GFR) non- Americanon 04-21-2024 GFR/1.73 sq M.predicted among non-blacks MDRD (S/P/Bld) [Vol rate/Area] mL/min/{1.73_m2} >=60 [facility] GFR/1.73 sq M.predicted among non-blacks MDRD (S/P/Bld) [Vol rate/Area] Estimated glomerular filtration rate (GFR) non- >=60 [facility] Globulin Calc (S) [Mass/Vol] on 04-21-2024 Globulin (S) [Mass/Vol] 3.3 g/dL [facility] Globulin (S) [Mass/Vol] Serum globulin measurement by calculation (mass/volume) [facility] Glucose mean value [Mass/vol ume] in Blood Estimated from glycated hemoglobinon 04-21-2024 Average glucose Estimated from glycated hemoglobin (Bld) [Mass/Vol] 151 mg/dL [facility] Average glucose Estimated from glycated hemoglobin (Bld) [Mass/Vol] Glucose mean value [Mass/volume] in Blood Estimated from glycated hemoglobin [facility] Hematocrit Auto (Bld) [Volum e fraction]on 04-21-2024 Hematocrit (Bld) [Volume fraction] 39.9 % 36.0-48.0 [facility] Hematocrit (Bld) [Volume fraction] Hematocrit [Volume Fraction] of Blood by Automated count 36.0-48.0 [facility] Hemoglobin [Mass/volume] in Bloodon 04-21-2024 Hemoglobin (Bld) [Mass/Vol] 13.0 g/dL 12.0-16.0 [facility] Hemoglobin (Bld) [Mass/Vol] Hemoglobin [Mass/volume] in Blood 12.0-16.0 [facility] Laboratory - Chemistry and C hemistry - challengeon 04-21-2024 Albumin [Mass/Vol] 3.9 g/dL 3.4-5.0 [facility] ALP [Catalytic activity/Vol] 75 U/L 46-116 [facility] ALT [Catalytic activity/Vol] 22 U/L 14-59 [facility] AST [Catalytic activity/Vol] 16 U/L 15-37 [facility] Bilirubin [Mass/Vol] 0.8 mg/dL 0.2-1.0 [facility] Calcium [Mass/Vol] 9.6 mg/dL 8.5-10.1 [facility] Chloride [Moles/Vol] 102 mmol/L 98-107 [facility] Cholesterol [Mass/Vol] 136 mg/dL <=200 [facility] Cholesterol in HDL [Mass/Vol] 76 mg/dL High 40-60 [facility] Comment on above: > or =60 mg/dl - LOW CARDIOVASCULAR RISK <40 mg/dl - HIGH CARDIOVASCULAR RISK CO2 [Moles/Vol] 30.5 mmol/L 21.0-32.0 [facility] Creatinine [Mass/Vol] 0.86 mg/dL 0.55-1.02 [facility] GFR/1.73 sq M.predicted MDRD (S/P/Bld) [Vol rate/Area] mL/min/{1.73_m2} >=60 [facility] Glucose [Mass/Vol] 146 mg/dL High 74-106 [facility] Potassium [Moles/Vol] 3.5 mmol/L 3.5-5.1 [facility] Protein [Mass/Vol] 7.2 g/dL 6.4-8.2 [facility] Sodium [Moles/Vol] 142 mmol/L 136-145 [facility] Triglyceride [Mass/Vol] 112 mg/dL <=150 [facility] TSH Qn 0.505 m[IU]/L 0.358-3.740 [facility] Urea nitrogen [Mass/Vol] 22.0 mg/dL High 7.0-18.0 [facility] Urea nitrogen/Creatin ine [Mass ratio] 25.6 mg/mg [facility] Laboratory - Hematology and Cell countson 04-21-2024 HbA1c (Bld) [Mass fraction] 6.9 % High 4.5-6.2 [facility] Comment on above: ADA RECOMMENDED LIMIT 4.0 - 6.0ADA THERA PEUTIC TARGET < 7.0ACTION SUGGESTED> 7.0 Immature granulocytes/100 WBC (Bld) 0.7 % High 0.0-0.5 [facility] Leukocytes [#/volume] correc keenan for nucleated erythrocytes in Blood by Automated counon 04-21-2024 WBC corrected for nucl RBC Auto (Bld) [#/Vol] 8.6 10 3/uL 4.0-11.0 [facility] WBC corrected for nucl RBC Auto (Bld) [#/Vol] Leukocytes [#/volume] corrected for nucleated erythrocytes in Blood by Automated coun 4.0-11.0 [facility] Lymphocytes Auto (Bld) [#/Vo l]on 04-21-2024 Lymphocytes (Bld) [#/Vol] 3.1 10 3/uL 1.2-3.8 [facility] Lymphocytes (Bld) [#/Vol] Lymphocytes [#/volume] in Blood by Automated count 1.2-3.8 [facility] Lymphocytes/100 WBC Auto (Bl d)on 04-21-2024 Lymphocytes/100 WBC (Bld) 36.2 % 20.5-60.0 [facility] Lymphocytes/100 WBC (Bld) Lymphocytes/100 leukocytes in Blood by Automated count 20.5-60.0 [facility] MCH Auto (RBC) [Entitic mass ]on 04-21-2024 MCH (RBC) [Entitic mass] 30.8 pg 26.7-34.0 [facility] MCH (RBC) [Entitic mass] MCH [Entitic mass] by Automated count 26.7-34.0 [facility] MCHC Auto (RBC) [Mass/Vol]on 04-21-2024 MCHC (RBC) [Mass/Vol] 32.6 g/dL 29.9-35.2 [facility] MCHC (RBC) [Mass/Vol] MCHC [Mass/volume] by Automated count 29.9-35.2 [facility] MCV Auto (RBC) [Entitic vol] on 04-21-2024 MCV (RBC) [Entitic vol] 94.5 fL 81.0-99.0 [facility] MCV (RBC) [Entitic vol] MCV [Entitic volume] by Automated count 81.0-99.0 [facility] Microalbumin [Mass/volume] i n Urineon 04-21-2024 Albumin DL <= 20 mg/L (U) [Mass/Vol] 4.6 mg/dL <=30.0 [facility] Albumin DL <= 20 mg/L (U) [Mass/Vol] Microalbumin [Mass/volume] in Urine <=30.0 [facility] Monocytes Auto (Bld) [#/Vol] on 04-21-2024 Monocytes (Bld) [#/Vol] 0.6 10 3/uL 0.3-0.8 [facility] Monocytes (Bld) [#/Vol] Automated blood monocyte count 0.3-0.8 [facility] Monocytes/100 WBC Auto (Bld) on 04-21-2024 Monocytes/100 WBC (Bld) 7.0 % 1.7-12.0 [facility] Monocytes/100 WBC (Bld) Automated monocyte % 1.7-12.0 [facility] Neutrophils Auto (Bld) [#/Vo l]on 04-21-2024 Neutrophils (Bld) [#/Vol] 4.1 10 3/uL 1.4-6.5 [facility] Neutrophils (Bld) [#/Vol] Neutrophils [#/volume] in Blood by Automated count 1.4-6.5 [facility] Neutrophils/100 WBC Auto (Bl d)on 04-21-2024 Neutrophils/100 WBC (Bld) 47.3 % 43.0-75.0 [facility] Neutrophils/100 WBC (Bld) Automated neutrophil % 43.0-75.0 [facility] No Panel Informationon 04-21 Eosinophils # (Auto) 0.7 10 3/uL 0.0-0.7 [facility] Immature Granulocyte # (Auto) 0.06 10 3/uL High 0.00-0.03 [facility] Platelet mean volume Auto (B ld) [Entitic vol]on 04-21-2024 Platelet mean volume (Bld) [Entitic vol] 11.0 fL 9.5-13.5 [facility] Platelet mean volume (Bld) [Entitic vol] Platelet mean volume [Entitic volume] in Blood by Automated count 9.5-13.5 [facility] Platelets Auto (Bld) [#/Vol] on 04-21-2024 Platelets (Bld) [#/Vol] 287 10 3/uL 150-450 [facility] Platelets (Bld) [#/Vol] Platelets [#/volume] in Blood by Automated count 150-450 [facility] RBC Auto (Bld) [#/Vol]on RBC (Bld) [#/Vol] 4.22 10 6/uL 4.20-5.40 [facility] RBC (Bld) [#/Vol] Erythrocytes [#/volume] in Blood by Automated count 4.20-5.40 [facility] Serum or plasma albumin/glob ulin mass ratioon 04-21-2024 Albumin/Globulin [Mass ratio] 1.2 {ratio} [facility] Albumin/Globulin [Mass ratio] Serum or plasma albumin/globulin mass ratio [facility] Serum or plasma anion gap de terminationon 04-21-2024 Anion gap [Moles/Vol] 13.0 mmol/L [facility] Anion gap [Moles/Vol] Serum or plasma anion gap determination [facility] Serum or plasma total choles terol/high density lipoprotein (HDL) cholesterol mass jaida 04-21-2024 Cholesterol.tota l/Cholesterol in HDL [Mass ratio] 1.8 {ratio} [facility] Comment on above: 3.3 - 4.4 LOW RISK4.4 - 7.1 AVERAGE RISK 7.1 - 11.0 MODERATE RISK>11.0 HIGH RISK Cholesterol.tota l/Cholesterol in HDL [Mass ratio] Serum or plasma total cholesterol/high density lipoprotein (HDL) cholesterol mass rat [facility] Comment on above: 3.3 - 4.4 LOW RISK4.4 - 7.1 AVERAGE RISK 7.1 - 11.0 MODERATE RISK>11.0 HIGH RISK Glucose mean value [Mass/vol ume] in Blood Estimated from glycated hemoglobinon 10-13-2023 Average glucose Estimated from glycated hemoglobin (Bld) [Mass/Vol] 154 mg/dL [facility] - Hematology and Cell countson 10-13-2023 HbA1c (Bld) [Mass fraction] 7.0 % 4.5-6.2 [facility] Comment on above: ADA RECOMMENDED LIMIT 4.0 - 6.0ADA THERA PEUTIC TARGET < 7.0ACTION SUGGESTED> 7.0 [facility] 09-03-2023 Forms [id number] 0 09-02-2023 Ambulatory Visit Summary ARIADNA COPELAND :1945 Visit Date:09/02/2023 Ambulatory Visit Instructions Your Diagnosis Ureteral calculus Flank pain Personal history of kidney stones Tests Performed Urnls Dip Stick Auto w/o Microscopy POC [id number] XR Abdomen 1 View -- Results Pending -- Please visit your patient portal for your results or contact your primary care physician. Your Care Team Attending Physician - Andry MCHUGH MD Primary Care Physician - RUIZ YEE DO This Is Your Medications List Contact prescribing physician if questions or concerns aspirin atorvastatin (atorvastatin 40 mg Tab) ergocalciferol (Vitamin D) hydrochlorothiazide-lisinopril levothyroxine (levothyroxine 75 mcg (0.075 mg) Tab) metformin metoprolol (metoprolol 25 mg ER Tab) Discharge Vitals Heart Rate (Peripheral) 72 Blood Pressure 136/62 Height 165 cm Height 65 in Weight 64 kg Weight 140.8 lb BMI 23.51 What to do next Scheduled Follow-Up Appointments Friday 9:45 AM EST With: Andry MCHUGH MD Where: [facility] Patient Educationon 09-02-19 Patient Education Nephrology Dietary Guidelines to Help Prevent Kidney Stones [...] for following this plan? Reading food labels ? Choose foods with no salt added or low-salt labels. Limit your salt (sodium) intake to less than 1,500 mg a day. ? Choose foods with calcium for each meal and snack. Try to eat about 300 mg of calcium at each meal. Foods that contain 200?500 mg of calcium a serving include: ? 8 oz (237 mL) of milk, hirkgan-mckxgrlenuii-afxgt milk, and calcium-fortifiedfruit juice. Calcium-fortified means that calcium has been added to these drinks. ? 8 oz (237 mL) of kefir, yogurt, and soy yogurt. ? 4 oz (114 g) of tofu. ? 1 oz (28 g) of cheese. ? 1 cup (150 g) of dried figs. ? 1 cup (91 g) of cooked broccoli. ? One 3 oz (85 g) can of sardines or mackerel. Most people need 1,000?1,500 mg of calcium a day. Talk to your dietitian about how much calcium is recommended for you. Shopping ? Buy plenty of fresh fruits and vegetables. Most people do not need to avoid fruits and vegetables, even if these foods contain nutrients that may contribute to kidney stones. ? When shopping for convenience foods, choose: ? Whole pieces of fruit. ? Pre-made salads with dressing on the side. ? Low-fat fruit and yogurt smoothies. ? Avoid buying frozen meals or prepared deli foods. These can be high in sodium. ? Look for foods with live cultures, such as yogurt and kefir. ? Choose high-fiber grains, such as whole-wheat breads, oat bran, and wheat cereals. Cooking ? Do not add salt to food when cooking. Place a salt shaker on the table and allow each person to add their own salt to taste. ? Use vegetable protein, such as beans, textured vegetable protein (TVP), or tofu, instead of meat in pasta, casseroles, and soups. Meal planning ? Eat less salt, if told by your dietitian. To do this: ? Avoid eating processed or pre-made food. ? Avoid eating fast food. ? Eat less animal protein, including cheese, meat, poultry, or fish, if told by your dietitian. To do this: ? Limit the number of times you have meat, poultry, fish, or cheese each week. Eat a diet free of meat at least 2 days a week. ? Eat only one serving each day of meat, poultry, fish, or seafood. ? When you prepare animal proteins, cut pieces into small portion sizes. For most meat and fish, one serving is about the size of the palm of your hand. ? Eat at least five servings of fresh fruits and vegetables each day. To do this: ? Keep fruits and vegetables on hand for snacks. ? Eat one piece of fruit or a handful of berries with breakfast. ? Have a salad and fruit at lunch. ? Have two kinds of vegetables at dinner. ? You may be told to limit foods that are high in a substance called oxalate. These include: ? Spinach (cooked), rhubarb, beets, sweet potatoes, and Citizen [place] chard. ? Peanuts. ? Potato chips, somali fries, and baked potatoes with skin on. ? Nuts and nut products. ? Chocolate. ? If you regularly take a diuretic medicine, make sure to eat at least 1 or 2 servings of fruits or vegetables that are high in potassium each day. These include: ? Avocado. ? Banana. ? [place], prune, carrot, or tomato juice. ? Baked potato. ? Cabbage. ? Beans and split peas. Lifestyle ? Drink enough fluid to keep your urine pale yellow. This is the most important thing you can do. Spread your fluid intake throughout the day. ? If you drink alcohol: ? Limit how much you have to: ? 0?1 drink a day for women who are not . ? 0?2 drinks a day for men. ? Know how much alcohol is in your drink. In the [place] one drink equals one 12 oz bottle of beer (355 mL), one 5 oz glass of wine (148 mL), or one 1? oz glass of hard liquor (44 mL). ? Lose weight if told by your health care provider. Work with your dietitian to find an eating plan and weight loss strategies that work best for you. General information ? Talk to your health care provider and dietitian about taking daily supplements. Depending on your health and the cause of your kidney stones, you may be told: ? Do not take high-dose supplements of vitamin C (1,000 mg a day or more). ? To take a calcium supplement. ? To take a daily probiotic supplement. ? To take other supplements such as magnesium, fish oil, or vitamin B6. ? Take oooo-sid-mzpnnwc and prescription medicines only as told by your health care provider. These include supplements. What foods sh (more content not included)... Normal [facility] Urology Office/Clinic Noteon 09-02-2023 Urology Office/Clinic Note Chief Complaint Follow up to [facility] w/ KUB HPI Staff Ariadna is a 78 y.o. female new patient here for 6 month follow up w/ KUB. Pt was seen for urology consult @ [facility] on 01/17/23 for left sided flank pain. CT scan done on 01/17/23 showed 7mm stone in the left lower ureter. S/P cysto/LT RG/holmium laser/basket/stent done on 01/17/23, cysto/LT stent removal done on 02/10/23. KUB done on 08/20/23 showed no stones. Dysuria: denies Incomplete bladder emptying: denies Hematuria: denies Frequency: denies Urgency: denies Nocturia: 1x a night Stream: steady stream Leaking: mild Post void dripping: denies Wearing pads/ Depends: denies Urge incontinence: denies Stress incontinence: yes w/ sneezing and coughing Incontinence without Sensory Awareness: denies Abdominal pain: denies Flank pain: RT side flank pain Sexual complaints: _ History of Present Illness Tests reviewed: reviewed UA and KUB. I have reviewed the previous health record information and history for this patient from . I have reviewed and verified the staff HPI to be accurate for this encounter. There have been no associated fever, chills, flank pain, or blood in the urine. Denies any urinary infections since last encounter. Review of Systems PHQ Score Initial Depression Screen Score: 0 SCORE ROS - Provider Constitutional: denies weight loss, denies hot flashes. Eyes: denies eye problems. Gastrointestinal: denies nausea, denies vomiting. Cardiovascular: denies chest pain or angina. Integumentary: no dryness Musculoskeletal: denies musculoskeletal symptoms. ENMT: denies otolaryngeal symptoms. Respiratory: no shortness of breath. Heme/Lymph: denies easy bleeding tendency, denies easy bruising tendency. Psychiatric: no confusion, no anxiety. Genitourinary: See HPI. Physical Exam Vitals & Measurements HR: 72(Peripheral) BP: 136/62 HT: 65 in HT: 165 cm WT: 64 kg WT: 140.8 lb BMI: 23.51 General Appearance: alert , no acute distress, well nourished, well developed female. Assessment/Plan 1. Ureteral calculus (N20.1: Calculus of ureter) Pt was seen for urology consult @ [facility] on 01/17/23 for left sided flank pain. CT scan done on 01/17/23 showed 7mm stone in the left lower ureter. S/P cysto/LT RG/holmium laser/basket/stent done on 01/17/23, Stone Analysis - CaOx [place] 80% and CaOx [place]hy 20% S/p cysto/LT stent removal done on 02/10/23. KUB done on 08/20/23 showed no stones. Pt denies any signs of stones since her stent removal. UA today shows small leuks and no signs of blood. Discussed imaging results with pt, no stones noted. Advised pt that we will continue to monitor due to the higher chance of more stones being formed in the future. Advised pt that if she forms stones in the future, then we could do a metabolic workup and she should start to increase her fluid intake to prevent future stones. Pt states that she only drinks one cup of coffee in the morning. Counseled pt on the dietary modifications she could do to prevent stones in the future. Follow up in 1 yr w/KUB. All questions/concerns were discussed. Pt to call the office if she encounters any issues prior. Pt acknowledges understanding. -Increase fluid intake. -Dietary modifications. -Will order KUB. 2. Flank pain (R10.9: Unspecified abdominal pain) Pt states that she has Rt-sided flank pain every once and a while, can be walking when she gets it. Advised pt that if it is activity related, the pain is generally not related to a kidney stone. Advised pt that if the pain becomes consistent and worsens over time, then we could get a CT or IVP to monitor for stones. -See #1 3. Personal history of kidney stones (Z87.442: Personal history of urinary calculi) Last stone was about 10 yrs ago. The patient is here with her today. She has been doing well. She occasionally has some right-sided back pain which does not sound to be of urologic etiology. KUB is negative. She knows to call if this pain would become worse persistent or severe. This might lead to an intravenous pyelogram or a CT urogram. We discussed the importance of hydration and that lemonade is a good source of fluid given the citrate which is a stone inhibitor. Follow-up 1 year with KUB Follow-up With When Contact Information Andry MCHUGH MD, URL In [address] [place], [place] [id number]- Additional Instructions: w/KUB Patient Education Dietary Guidelines to Help Prevent Kidney Stones I, Desi Liu, personally scribed for Dr. Mchugh on 09/02/2023 09:41:14. . Documentation recorded by the scribe, Desi Liu, accurately reflects the services(s) I performed and decisions made by me. Authenticated by Dr. Mchugh on 09/02/2023 09:42:47. Portions of this record may have been created with voice recognition artificial intelligence software, specifically [employer], [employer] and or PPI (more content not included)... Normal [facility] Comment on above: Result Comment: Electronically Signed By : Andry MCHUGH MD\.br\Date and Time Signed: 09/02/23 09:43 EST\.br\Electronically Co-Signed By: Desi Liu\.br\Date and Time Co-Signed: 09/02/23 09:41 EST GLYCOHEMOGLOBIN A1Con 2022 ADA RECOMMENDATION SEE BELOW Normal [facility] Comment on above: Result Comment: ADA RECOMMENDED LIMIT 4. 0 - 6.0 ADA THERAPEUTIC TARGET < 7.0 ACTION SUGGESTED > 7.0 Performed By: #### A 1C #### [facility] [address] [address] [address] Sam Balderrama Glucose [Mass/Vol] 154 mg/dL Normal [facility] Comment on above: Performed By: #### A1C #### [facility] [address] [address] [address] Sam Balderrama HbA1c (Bld) [Mass fraction] 7.0 % Critically high 4.5-6.2 [facility] Comment on above: Performed By: #### A1C #### [facility] [address] [place] [address] Dr. Sam Balderrama MICROALBUMIN URINEon 022 Albumin, Urine 42.4 ug/mL Normal Not Estab. [facility] Comment on above: Performed By: #### MALBLC #### [facility] [address] [place] [address] Dr. Sam Balderrama CBC AUTO DIFFon 03-20-2022 BASO # 0.1 103/ul Normal 0.0-0.1 [facility] Comment on above: Performed By: #### A1C #### [facility] [address] [place] [address] Dr. Sam Balderrama Basophils/100 WBC (Bld) 1.0 % Normal 0.2-2.0 [facility] Comment on above: Performed By: #### A1C #### [facility] [address] [place] [address] Dr. Sam Balderrama EO # 0.5 103/ul Normal 0.0-0.7 [facility] Comment on above: Performed By: #### A1C #### [facility] [address] [place] [address] Dr. Sam Balderrama Eosinophils/100 WBC (Bld) 6.4 % Normal 0.9-7.0 [facility] Comment on above: Performed By: #### A1C #### [facility] [address] [place] [address] Dr. Sam Balderrama Erythrocyte distribution width (RBC) [Ratio] 12.5 % Normal 11.0-15.0 [facility] Comment on above: Performed By: #### A1C #### [facility] [address] [place] [address] Dr. Sam Balderrama Hematocrit (Bld) [Volume fraction] 40.6 % Normal 36.0-48.0 [facility] Comment on above: Performed By: #### A1C #### [facility] [address] [place] [address] Dr. Sam Balderrama Hemoglobin (Bld) [Mass/Vol] 13.1 g/dL Normal 12.0-16.0 [facility] Comment on above: Performed By: #### A1C #### [facility] [address] [place] [address] Dr. Sam Bladerrama IG # 0.04 10e3/ul Critically high 0.00-0.03 [facility] Comment on above: Performed By: #### A1C #### [facility] [address] [place] [address] Dr. Sam Balderrama IG % 0.5 % Normal 0.0-0.5 [facility] Comment on above: Performed By: #### A1C #### [facility] [address] [place] [address] Dr. Sam Balderrama LYMPH # 2.8 103/ul Normal 1.2-3.8 [facility] Comment on above: Performed By: #### A1C #### [facility] [address] [place] [address] Dr. Sam Balderrama Lymphocytes/100 WBC (Bld) 38.7 % Normal 20.5-60.0 [facility] Comment on above: Performed By: #### A1C #### [facility] [address] [place] [address] Dr. Sam Balderrama MANUAL DIFF REQ NO Normal [facility] Comment on above: Performed By: #### A1C #### [facility] [address] [place] [address] Dr. Sam Balderrama MCH (RBC) [Entitic mass] 30.6 pg Normal 26.7-34.0 [facility] Comment on above: Performed By: #### A1C #### [facility] [address] [place] [address] Dr. Sam Balderrama MCHC (RBC) [Mass/Vol] 32.3 g/dL Normal 29.9-35.2 [facility] Comment on above: Performed By: #### A1C #### [facility] [address] [place] [address] Dr. Sam Balderrama MCV (RBC) [Entitic vol] 94.9 fL Normal 81.0-99.0 [facility] Comment on above: Performed By: #### A1C #### [facility] [address] [place] [address] Dr. Sam Balderrama MONO # 0.6 103/ul Normal 0.3-0.8 [facility] Comment on above: Performed By: #### A1C #### [facility] [address] [place] [address] Dr. Sam Balderrama Monocytes/100 WBC (Bld) 8.4 % Normal 1.7-12.0 [facility] Comment on above: Performed By: #### A1C #### [facility] [address] [place] [address] Dr. Sam aBlderrama NEUT # 3.3 103/ul Normal 1.4-6.5 [facility] Comment on above: Performed By: #### A1C #### [facility] [address] [place] [address] Dr. Sam Balderrama Neutrophils/100 WBC (Bld) 45.0 % Normal 43.0-75.0 [facility] Comment on above: Performed By: #### A1C #### [facility] [address] [place] [address] Dr. Sam Balderrama Platelet mean volume (Bld) [Entitic vol] 10.4 fL Normal 9.5-13.5 [facility] Comment on above: Performed By: #### A1C #### [facility] [address] [place] [address] Dr. Sam Balderrama PLT 257 103/ul Normal 150-450 [facility] Comment on above: Performed By: #### A1C #### [facility] [address] [address] [address] Sam Balderrama RBC 4.28 106/ul Normal 4.20-5.40 [facility] Comment on above: Performed By: #### A1C #### [facility] [address] [place] [address] Dr. Sam Balderrama WBC 7.3 103/ul Normal 4.0-11.0 [facility] Comment on above: Performed By: #### A1C #### [facility] [address] [place] [address] Dr. Sam Balderrama GLYCOHEMOGLOBIN A1Con 2021 ADA RECOMMENDATION SEE BELOW Normal [facility] Comment on above: Result Comment: ADA RECOMMENDED LIMIT 4. 0 - 6.0 ADA THERAPEUTIC TARGET < 7.0 ACTION SUGGESTED > 7.0 Performed By: #### B REVERBERATORY SKIMMER, CMP, LIPA #### [facility] [address] [place] [address] Dr. Sam Balderrama Glucose [Mass/Vol] 169 mg/dL Normal [facility] Comment on above: Performed By: #### BNP, CMP, LIPA #### [facility] [address] [place] [address] Dr. Sam Balderrama HbA1c (Bld) [Mass fraction] 7.5 % Critically high 4.5-6.2 [facility] Comment on above: Performed By: #### BNP, CMP, LIPA #### [facility] [address] [place] [address] Dr. Sam Balderrama LIPID PROFILEon 03-20-2022 CHOL-HDL RATIO NORM SEE BELOW Normal [facility] Comment on above: Result Comment: 3.3 - 4.4 LOW RISK 4.4 - 7.1 AVERAGE RISK 7.1 - 11.0 MODERATE RISK >11.0 HIGH RISK Performed By: #### C VDTBH #### [facility] [address] [place] [address] Dr. Sam Balderrama Cholesterol [Mass/Vol] 124 mg/dL Normal <=200 [facility] Comment on above: Performed By: #### CVDTBH #### [facility] [address] [address] [address] Sam Balderrama Cholesterol in HDL [Mass/Vol] 59 mg/dL Normal 40-60 [facility] Comment on above: Performed By: #### CVDTBH #### [facility] [address] [address] [address] Sam Balderrama Cholesterol in LDL [Mass/Vol] 47.2 mg/dL Normal [facility] Comment on above: Performed By: #### CVDTBH #### [facility] [address] [address] [address] Sam Balderrama Cholesterol.tota l/Cholesterol in HDL [Mass ratio] 2.1 {ratio} Normal [facility] Comment on above: Performed By: #### CVDTBH #### [facility] [address] [place] [address] Dr. Sam Balderrama HDL NORMAL > or = 60 mg/dl - LO W CARDIOVASCULAR RISK <40 mg/dl - HIGH CARDIOVASCULAR RISK Normal [facility] Comment on above: Performed By: #### CVDTBH #### [facility] [address] [address] [address] Sam Balderrama LDL CALC NORMAL SEE BELOW Normal [facility] Comment on above: Result Comment: <100 mg/dl OPTIMAL 100 - 129 mg/dl NEAR OR ABOVE OPTIMAL 130 - 159 mg/dl BORDERLINE HIGH 160 - 189 mg/dl HIGH >190 mg/dl VERY HIGH Performed By: #### C VDTBH #### [facility] [address] [address] [address] Sam Balderrama Triglyceride [Mass/Vol] 89 mg/dL Normal <=150 [facility] Comment on above: Performed By: #### CVDTBH #### [facility] [address] [address] [address] Sam Balderrama VLDL CALC 17.8 mg/dL Normal [facility] Comment on above: Performed By: #### CVDTBH #### [facility] [address] [address] [address] Sam Balderrama MG MAMM SCREEN 3D YAZMIN CADon 08-10-2022 MG MAMM SCREEN 3D YAZMIN CAD Patient: ARIADNA COPELAND Exam Date: 03/20/2022 : 1945 Gender:F Ordering : DR RUIZ YEE D.O. Admission #: [id number] Family : Order #: [id number] CLICK HERE TO VIEW EXAM RADIOLOGY REPORT [...] breast cancer at age 78. LOCATION: [facility] BREAST COMPOSITION: Scattered areas fibroglandular density. [...] Herrera MD on 03/20/2022 at 12:35 Normal [facility] SGPTon 03-20-2022 ALT [Catalytic activity/Vol] 26 U/L Normal 14-59 [facility] Comment on above: Performed By: #### CVDTBH #### [facility] Laboratory [address] [address] [address] Sam Balderrama TSHon 03-20-2022 TSH 0.381 uIU/mL Normal 0.358-3.740 [facility] Comment on above: Performed By: #### CVDTBH #### [facility] [address] [address] [address] Sam Balderrama XR DEXA BONE DENSITYon 03-20 XR DEXA BONE DENSITY DEXA Bone Density Study CLINICAL: Evaluate bone mineral density. This menopausal COMPARISON: None FINDINGS: The bone density study was assessed by dual-energy x-ray absorptiometry with the [employer]er scanner. The test results are expressed in [...] RICHARD HANNA Date: 2022-03-20 08:49 Normal [facility] Covid-19 PCR (CVDTB)on 02-09 SARS-CoV-2 (COVID-19) RNA MANNY+probe Ql (Unsp spec) Not detected Normal NOT DETECTED [facility] Comment on above: Result Comment: This test is not yet jose roved or cleared by the [place] FDA. When there are no FDA-approved or cleared tests available, and other criteria are met, FDA can make tests available under an emergency access mechanism called an Emergency Use Authorization (EUA). The EUA for this test is supported by the [employer] of Health and Human Service's (HHS's) declaration [...] consistent with SARS-CoV-2. Performed By: #### C VDTBH #### [facility] [address] [address] [address] Sam Balderrama CBC AUTO DIFFon 01-07-2022 BASO # 0.1 103/ul Normal 0.0-0.1 [facility] Comment on above: Performed By: #### CBC #### [facility] [address] [address] [address] Sam Balderrama Basophils/100 WBC (Bld) 0.6 % Normal 0.2-2.0 [facility] Comment on above: Performed By: #### CBC #### [facility] [address] [address] [address] Sam Balderrama EO # 0.2 103/ul Normal 0.0-0.7 [facility] Comment on above: Performed By: #### CBC #### [facility] [address] [address] [address] Sam Balderrama Eosinophils/100 WBC (Bld) 2.7 % Normal 0.9-7.0 [facility] Comment on above: Performed By: #### CBC #### [facility] [address] [address] [address] Sam Balderrama Erythrocyte distribution width (RBC) [Ratio] 12.6 % Normal 11.0-15.0 [facility] Comment on above: Performed By: #### CBC #### [facility] [address] [place] [address] Dr. Sam Balderrama Hematocrit (Bld) [Volume fraction] 34.2 % Critically low 36.0-48.0 [facility] Comment on above: Performed By: #### CBC #### [facility] [address] [place] [address] Dr. Sam Balderrama Hemoglobin (Bld) [Mass/Vol] 10.9 g/dL Critically low 12.0-16.0 [facility] Comment on above: Performed By: #### CBC #### [facility] [address] [place] [address] Dr. Sam Balderrama IG # 0.10 10e3/ul Critically high 0.00-0.03 [facility] Comment on above: Performed By: #### CBC #### [facility] [address] [address] [address] Sam Balderrama IG % 1.1 % Critically high 0.0-0.5 [facility] Comment on above: Performed By: #### CBC #### [facility] [address] [address] [address] Sam Balderrama LYMPH # 2.7 103/ul Normal 1.2-3.8 [facility] Comment on above: Performed By: #### CBC #### [facility] [address] [place] [address] Dr. Sam Balderrama Lymphocytes/100 WBC (Bld) 31.0 % Normal 20.5-60.0 [facility] Comment on above: Performed By: #### CBC #### [facility] [address] [place] [address] Dr. Sam Balderrama MANUAL DIFF REQ NO Normal [facility] Comment on above: Performed By: #### CBC #### [facility] [address] [place] [address] Dr. Sam Balderrama MCH (RBC) [Entitic mass] 30.8 pg Normal 26.7-34.0 [facility] Comment on above: Performed By: #### CBC #### [facility] [address] [place] [address] Dr. Sam Balderrama MCHC (RBC) [Mass/Vol] 31.9 g/dL Normal 29.9-35.2 [facility] Comment on above: Performed By: #### CBC #### [facility] [address] [place] [address] Dr. Sam Balderrama MCV (RBC) [Entitic vol] 96.6 fL Normal 81.0-99.0 [facility] Comment on above: Performed By: #### CBC #### [facility] [address] [place] [address] Dr. Sam Balderrama MONO # 0.9 103/ul Critically high 0.3-0.8 [facility] Comment on above: Performed By: #### CBC #### [facility] [address] [place] [address] Dr. Sam Balderrama Monocytes/100 WBC (Bld) 10.5 % Normal 1.7-12.0 [facility] Comment on above: Performed By: #### CBC #### [facility] [address] [place] [address] Dr. Sam Balderrama NEUT # 4.7 103/ul Normal 1.4-6.5 [facility] Comment on above: Performed By: #### CBC #### [facility] [address] [place] [address] Dr. Sam Balderrama Neutrophils/100 WBC (Bld) 54.1 % Normal 43.0-75.0 [facility] Comment on above: Performed By: #### CBC #### [facility] [address] [place] [address] Dr. Sam Balderrama Platelet mean volume (Bld) [Entitic vol] 9.7 fL Normal 9.5-13.5 [facility] Comment on above: Performed By: #### CBC #### [facility] [address] [place] [address] Dr. Sam Balderrama PLT 258 103/ul Normal 150-450 [facility] Comment on above: Performed By: #### CBC #### [facility] [address] [place] [address] Dr. Sam Balderrama RBC 3.54 106/ul Critically low 4.20-5.40 [facility] Comment on above: Performed By: #### CBC #### [facility] [address] [place] [address] Dr. Sam Balderrama WBC 8.7 103/ul Normal 4.0-11.0 [facility] Comment on above: Performed By: #### CBC #### [facility] [address] [place] [address] Dr. Sam Balderrama POINT OF CARE GLUCOSEon 12-11 Glucose [Mass/Vol] 145 mg/dL Critically high 74-106 [facility] Comment on above: Performed By: #### A1C #### [facility] [address] [place] [address] Dr. Sam Balderrama PROF 14(COMP METB)on 022 Albumin [Mass/Vol] 2.8 g/dL Critically low 3.4-5.0 [facility] Comment on above: Performed By: #### CVDTBH #### [facility] [address] [place] [address] Dr. Sam Balderrama Albumin/Globulin [Mass ratio] 1.2 {ratio} Normal [facility] Comment on above: Performed By: #### CVDTBH #### [facility] [address] [place] [address] Dr. Sam Balderrama ALP [Catalytic activity/Vol] 48 U/L Normal 46-116 [facility] Comment on above: Performed By: #### CVDTBH #### [facility] [address] [place] [address] Dr. Sam Balderrama ALT [Catalytic activity/Vol] 32 U/L Normal 14-59 [facility] Comment on above: Performed By: #### CVDTBH #### [facility] [address] [place] [address] Dr. Sam Balderrama Anion gap [Moles/Vol] 10.9 mmol/L Normal [facility] Comment on above: Performed By: #### CVDTBH #### [facility] [address] [place] [address] Dr. Sam Balderrama AST [Catalytic activity/Vol] 17 U/L Normal 15-37 [facility] Comment on above: Performed By: #### CVDTBH #### [facility] [address] [place] [address] Dr. Sam Balderrama Bilirubin [Mass/Vol] 0.5 mg/dL Normal 0.2-1.0 [facility] Comment on above: Performed By: #### CVDTBH #### [facility] [address] [place] [address] Dr. Sam Balderrama Calcium [Mass/Vol] 8.4 mg/dL Critically low 8.5-10.1 [facility] Comment on above: Performed By: #### CVDTBH #### [facility] [address] [place] [address] Dr. Sam Balderrama Chloride [Moles/Vol] 105 mmol/L Normal 98-107 [facility] Comment on above: Performed By: #### CVDTBH #### [facility] [address] [place] [address] Dr. Sam Balderrama CO2 [Moles/Vol] 29.5 mmol/L Normal 21.0-32.0 [facility] Comment on above: Performed By: #### CVDTBH #### [facility] [address] [place] [address] Dr. Sam Balderrama Creatinine [Mass/Vol] 0.90 mg/dL Normal 0.55-1.02 [facility] Comment on above: Performed By: #### CVDTBH #### [facility] [address] [address] [address] Sam Balderrama EGFR-AF NIGERIEN >60 Normal >=60 [facility] Comment on above: Performed By: #### CVDTBH #### [facility] [address] [address] [address] Sam Balderrama EGFR-NON AF NIGERIEN >60 Normal >=60 [facility] Comment on above: Performed By: #### CVDTBH #### [facility] [address] [address] [address] Sam Balderrama Globulin (S) [Mass/Vol] 2.4 g/dL Normal [facility] Comment on above: Performed By: #### CVDTBH #### [facility] [address] [place] [address] Dr. Sam Balderrama Glucose [Mass/Vol] 134 mg/dL Critically high 74-106 [facility] Comment on above: Performed By: #### CVDTBH #### [facility] [address] [address] [address] Sam Balderrama Potassium [Moles/Vol] 4.4 mmol/L Normal 3.5-5.1 [facility] Comment on above: Performed By: #### CVDTBH #### [facility] [address] [address] [address] Sam Balderrama Protein [Mass/Vol] 5.2 g/dL Critically low 6.4-8.2 [facility] Comment on above: Performed By: #### CVDTBH #### [facility] [address] [address] [address] Sam Balderrama Sodium [Moles/Vol] 141 mmol/L Normal 136-145 [facility] Comment on above: Performed By: #### CVDTBH #### [facility] [address] [address] [address] Sam Balderrama Urea nitrogen [Mass/Vol] 14.0 mg/dL Normal 7.0-18.0 [facility] Comment on above: Performed By: #### CVDTBH #### [facility] [address] [place] [address] Dr. Sam Balderrama Urea nitrogen/Creatin ine [Mass ratio] 15.6 mg/mg Normal [facility] Comment on above: Performed By: #### CVDTBH #### [facility] [address] [place] [address] Dr. Sam Balderrama BNPon 01-06-2022 Natriuretic peptide B (Bld) [Mass/Vol] 213.0 pg/mL Normal <=1,800.0 [facility] Comment on above: Performed By: #### BNP, CMP, LIPA #### [facility] [address] [place] [address] Dr. Sam Balderrama CBC AUTO DIFFon 01-06-2022 BASO # 0.1 103/ul Normal 0.0-0.1 [facility] Comment on above: Performed By: #### BNP, CMP, LIPA #### [facility] [address] [place] [address] Dr. Sam Balderrama Basophils/100 WBC (Bld) 0.6 % Normal 0.2-2.0 [facility] Comment on above: Performed By: #### BNP, CMP, LIPA #### [facility] [address] [place] [address] Dr. Sam Balderrama EO # 0.2 103/ul Normal 0.0-0.7 [facility] Comment on above: Performed By: #### BNP, CMP, LIPA #### [facility] [address] [place] [address] Dr. Sam Balderrama Eosinophils/100 WBC (Bld) 2.5 % Normal 0.9-7.0 [facility] Comment on above: Performed By: #### BNP, CMP, LIPA #### [facility] [address] [place] [address] Dr. Sam Balderrama Erythrocyte distribution width (RBC) [Ratio] 12.7 % Normal 11.0-15.0 [facility] Comment on above: Performed By: #### BNP, CMP, LIPA #### [facility] [address] [address] [address] Sam Balderrama Hematocrit (Bld) [Volume fraction] 35.7 % Critically low 36.0-48.0 [facility] Comment on above: Performed By: #### BNP, CMP, LIPA #### [facility] [address] [place] [address] Dr. Sam Balderrama Hemoglobin (Bld) [Mass/Vol] 11.4 g/dL Critically low 12.0-16.0 [facility] Comment on above: Performed By: #### BNP, CMP, LIPA #### [facility] [address] [place] [address] Dr. Sam Balderrama IG # 0.15 10e3/ul Critically high 0.00-0.03 [facility] Comment on above: Performed By: #### BNP, CMP, LIPA #### [facility] [address] [place] [address] Dr. Sam Balderrama IG % 1.9 % Critically high 0.0-0.5 [facility] Comment on above: Performed By: #### BNP, CMP, LIPA #### [facility] [address] [place] [address] Dr. Sam Balderrama LYMPH # 2.7 103/ul Normal 1.2-3.8 [facility] Comment on above: Performed By: #### BNP, CMP, LIPA #### [facility] [address] [place] [address] Dr. Sam Balderrama Lymphocytes/100 WBC (Bld) 33.5 % Normal 20.5-60.0 [facility] Comment on above: Performed By: #### BNP, CMP, LIPA #### [facility] [address] [place] [address] Dr. Sam Balderrama MANUAL DIFF REQ NO Normal [facility] Comment on above: Performed By: #### BNP, CMP, LIPA #### [facility] [address] [place] [address] Dr. Sam Balderrama MCH (RBC) [Entitic mass] 31.0 pg Normal 26.7-34.0 [facility] Comment on above: Performed By: #### BNP, CMP, LIPA #### [facility] [address] [place] [address] Dr. Sam Balderrama MCHC (RBC) [Mass/Vol] 31.9 g/dL Normal 29.9-35.2 [facility] Comment on above: Performed By: #### BNP, CMP, LIPA #### [facility] [address] [place] [address] Dr. Sam Balderrama MCV (RBC) [Entitic vol] 97.0 fL Normal 81.0-99.0 [facility] Comment on above: Performed By: #### BNP, CMP, LIPA #### [facility] [address] [place] [address] Dr. Sam Balderrama MONO # 0.8 103/ul Normal 0.3-0.8 [facility] Comment on above: Performed By: #### BNP, CMP, LIPA #### [facility] [address] [place] [address] Dr. Sam Balderrama Monocytes/100 WBC (Bld) 9.8 % Normal 1.7-12.0 [facility] Comment on above: Performed By: #### BNP, CMP, LIPA #### [facility] [address] [place] [address] Dr. Sam Balderrama NEUT # 4.1 103/ul Normal 1.4-6.5 [facility] Comment on above: Performed By: #### BNP, CMP, LIPA #### [facility] [address] [place] [address] Dr. Sam Balderrama Neutrophils/100 WBC (Bld) 51.7 % Normal 43.0-75.0 [facility] Comment on above: Performed By: #### BNP, CMP, LIPA #### [facility] [address] [place] [address] Dr. Sam Balderrama Platelet mean volume (Bld) [Entitic vol] 9.6 fL Normal 9.5-13.5 [facility] Comment on above: Performed By: #### BNP, CMP, LIPA #### [facility] [address] [place] [address] Dr. Sam Balderrama PLT 281 103/ul Normal 150-450 [facility] Comment on above: Performed By: #### BNP, CMP, LIPA #### [facility] [address] [place] [address] Dr. Sam Balderrama RBC 3.68 106/ul Critically low 4.20-5.40 [facility] Comment on above: Performed By: #### BNP, CMP, LIPA #### [facility] [address] [place] [address] Dr. Sam Balderrama WBC 7.9 103/ul Normal 4.0-11.0 [facility] Comment on above: Performed By: #### BNP, CMP, LIPA #### [facility] [address] [place] [address] Dr. Sam Balderrama LIPASEon 01-06-2022 Lipase [Catalytic activity/Vol] 219.0 U/L Normal 73.0-393.0 [facility] Comment on above: Performed By: #### BNP, CMP, LIPA #### [facility] [address] [place] [address] Dr. Sam Balderrama OCC BLD IMMUNOASSAYon 2021 OCCULT BLOOD Negative Normal NEGATIVE [facility] Comment on above: Performed By: #### A1C #### [facility] [address] [place] [address] Dr. Sam Balderrama POINT OF CARE GLUCOSEon 12-10 Glucose [Mass/Vol] 162 mg/dL Critically high 74-106 [facility] Comment on above: Performed By: #### CVDTBH #### [facility] [address] [place] [address] Dr. Sam Balderrama Glucose [Mass/Vol] 103 mg/dL Normal 74-106 [facility] Comment on above: Performed By: #### BNP, CMP, LIPA #### [facility] [address] [place] [address] Dr. Sam Balderrama Glucose [Mass/Vol] 137 mg/dL Critically high 74-106 [facility] Comment on above: Performed By: #### BNP, CMP, LIPA #### [facility] [address] [address] [address] Sam Balderrama PROF 14(COMP METB)on 022 Albumin [Mass/Vol] 2.8 g/dL Critically low 3.4-5.0 [facility] Comment on above: Performed By: #### BNP, CMP, LIPA #### [facility] [address] [address] [address] Sam Balderrama Albumin/Globulin [Mass ratio] 1.1 {ratio} Normal [facility] Comment on above: Performed By: #### BNP, CMP, LIPA #### [facility] [address] [address] [address] Sam Balderrama ALP [Catalytic activity/Vol] 51 U/L Normal 46-116 [facility] Comment on above: Performed By: #### BNP, CMP, LIPA #### [facility] [address] [place] [address] Dr. Sam Balderrama ALT [Catalytic activity/Vol] 32 U/L Normal 14-59 [facility] Comment on above: Performed By: #### BNP, CMP, LIPA #### [facility] [address] [address] [address] Sam Balderrama Anion gap [Moles/Vol] 10.6 mmol/L Normal [facility] Comment on above: Performed By: #### BNP, CMP, LIPA #### [facility] [address] [place] [address] Dr. Sam Balderrama AST [Catalytic activity/Vol] 16 U/L Normal 15-37 [facility] Comment on above: Performed By: #### BNP, CMP, LIPA #### [facility] [address] [address] [address] Sam Balderrama Bilirubin [Mass/Vol] 0.5 mg/dL Normal 0.2-1.0 [facility] Comment on above: Performed By: #### BNP, CMP, LIPA #### [facility] [address] [address] [address] Sam Balderrama Calcium [Mass/Vol] 8.4 mg/dL Critically low 8.5-10.1 [facility] Comment on above: Performed By: #### BNP, CMP, LIPA #### [facility] [address] [address] [address] Sam Balderrama Chloride [Moles/Vol] 105 mmol/L Normal 98-107 [facility] Comment on above: Performed By: #### BNP, CMP, LIPA #### [facility] [address] [address] [address] Sam Balderrama CO2 [Moles/Vol] 28.7 mmol/L Normal 21.0-32.0 [facility] Comment on above: Performed By: #### BNP, CMP, LIPA #### [facility] [address] [address] [address] Sam Balderrama Creatinine [Mass/Vol] 0.94 mg/dL Normal 0.55-1.02 [facility] Comment on above: Performed By: #### BNP, CMP, LIPA #### [facility] [address] [address] [address] Sam Balderrama EGFR-AF NIGERIEN >60 Normal >=60 [facility] Comment on above: Performed By: #### BNP, CMP, LIPA #### [facility] [address] [address] [address] Sam Balderrama EGFR-NON AF NIGERIEN 58 mL/min/1.73m2 Critically low >=60 [facility] Comment on above: Performed By: #### BNP, CMP, LIPA #### [facility] [address] [address] [address] Sam Balderrama Globulin (S) [Mass/Vol] 2.6 g/dL Normal [facility] Comment on above: Performed By: #### BNP, CMP, LIPA #### [facility] [address] [address] [address] Sam Balderrama Glucose [Mass/Vol] 160 mg/dL Critically high 74-106 [facility] Comment on above: Performed By: #### BNP, CMP, LIPA #### [facility] [address] [address] [address] Sam Balderrama Potassium [Moles/Vol] 4.3 mmol/L Normal 3.5-5.1 [facility] Comment on above: Performed By: #### BNP, CMP, LIPA #### [facility] [address] [place] [address] Dr. Sam Balderrama Protein [Mass/Vol] 5.4 g/dL Critically low 6.4-8.2 [facility] Comment on above: Performed By: #### BNP, CMP, LIPA #### [facility] [address] [place] [address] Dr. Sam Balderrama Sodium [Moles/Vol] 140 mmol/L Normal 136-145 [facility] Comment on above: Performed By: #### BNP, CMP, LIPA #### [facility] [address] [place] [address] Dr. Sam Balderrama Urea nitrogen [Mass/Vol] 16.0 mg/dL Normal 7.0-18.0 [facility] Comment on above: Performed By: #### BNP, CMP, LIPA #### [facility] [address] [place] [address] Dr. Sam Balderrama Urea nitrogen/Creatin ine [Mass ratio] 17.0 mg/mg Normal [facility] Comment on above: Performed By: #### BNP, CMP, LIPA #### [facility] [address] [place] [address] Dr. Sam Balderrama BNPon 01-05-2022 Natriuretic peptide B (Bld) [Mass/Vol] 297.0 pg/mL Normal <=1,800.0 [facility] Comment on above: Performed By: #### BNP, CMP, LIPA #### [facility] [address] [place] [address] Dr. Sam Balderrama CBC AUTO DIFFon 01-05-2022 BASO # 0.1 103/ul Normal 0.0-0.1 [facility] Comment on above: Performed By: #### CVDTBH #### [facility] [address] [place] [address] Dr. Sam Balderrama Basophils/100 WBC (Bld) 0.7 % Normal 0.2-2.0 [facility] Comment on above: Performed By: #### CVDTBH #### [facility] [address] [place] [address] Dr. Sam Balderrama EO # 0.3 103/ul Normal 0.0-0.7 [facility] Comment on above: Performed By: #### CVDTBH #### [facility] [address] [place] [address] Dr. Sam Balderrama Eosinophils/100 WBC (Bld) 2.6 % Normal 0.9-7.0 [facility] Comment on above: Performed By: #### CVDTBH #### [facility] [address] [place] [address] Dr. Sam Balderrama Erythrocyte distribution width (RBC) [Ratio] 12.7 % Normal 11.0-15.0 [facility] Comment on above: Performed By: #### CVDTBH #### [facility] [address] [place] [address] Dr. Sam Balderrama Hematocrit (Bld) [Volume fraction] 36.7 % Normal 36.0-48.0 [facility] Comment on above: Performed By: #### CVDTBH #### [facility] [address] [place] [address] Dr. Sam Balderrama Hemoglobin (Bld) [Mass/Vol] 11.9 g/dL Critically low 12.0-16.0 [facility] Comment on above: Performed By: #### CVDTBH #### [facility] [address] [place] [address] Dr. Sam Balderrama IG # 0.42 10e3/ul Critically high 0.00-0.03 [facility] Comment on above: Performed By: #### CVDTBH #### [facility] [address] [place] [address] Dr. Sam Balderrama IG % 3.8 % Critically high 0.0-0.5 [facility] Comment on above: Performed By: #### CVDTBH #### [facility] [address] [place] [address] Dr. Sam Balderrama LYMPH # 3.1 103/ul Normal 1.2-3.8 [facility] Comment on above: Performed By: #### CVDTBH #### [facility] [address] [place] [address] Dr. Sam Balderrama Lymphocytes/100 WBC (Bld) 27.7 % Normal 20.5-60.0 [facility] Comment on above: Performed By: #### CVDTBH #### [facility] [address] [place] [address] Dr. Sam Balderrama MANUAL DIFF REQ NO Normal [facility] Comment on above: Performed By: #### CVDTBH #### [facility] [address] [place] [address] Dr. Sam Balderrama MCH (RBC) [Entitic mass] 30.5 pg Normal 26.7-34.0 [facility] Comment on above: Performed By: #### CVDTBH #### [facility] [address] [place] [address] Dr. Sam Balderrama MCHC (RBC) [Mass/Vol] 32.4 g/dL Normal 29.9-35.2 [facility] Comment on above: Performed By: #### CVDTBH #### [facility] [address] [place] [address] Dr. Sam Balderrama MCV (RBC) [Entitic vol] 94.1 fL Normal 81.0-99.0 [facility] Comment on above: Performed By: #### CVDTBH #### [facility] [address] [place] [address] Dr. Sam Balderrama MONO # 1.1 103/ul Critically high 0.3-0.8 [facility] Comment on above: Performed By: #### CVDTBH #### [facility] [address] [place] [address] Dr. Sam Balderrama Monocytes/100 WBC (Bld) 9.5 % Normal 1.7-12.0 [facility] Comment on above: Performed By: #### CVDTBH #### [facility] [address] [place] [address] Dr. Sam Balderrama NEUT # 6.2 103/ul Normal 1.4-6.5 [facility] Comment on above: Performed By: #### CVDTBH #### [facility] [address] [address] [address] Sam Balderrama Neutrophils/100 WBC (Bld) 55.7 % Normal 43.0-75.0 [facility] Comment on above: Performed By: #### CVDTBH #### [facility] [address] [address] [address] Sam Balderrama Platelet mean volume (Bld) [Entitic vol] 9.4 fL Critically low 9.5-13.5 [facility] Comment on above: Performed By: #### CVDTBH #### [facility] [address] [address] [address] Sam Balderrama PLT 308 103/ul Normal 150-450 [facility] Comment on above: Performed By: #### CVDTBH #### [facility] [address] [place] [address] Dr. Sam Balderrama RBC 3.90 106/ul Critically low 4.20-5.40 [facility] Comment on above: Performed By: #### CVDTBH #### [facility] [address] [address] [address] Sam Balderrama WBC 11.1 103/ul Critically high 4.0-11.0 [facility] Comment on above: Performed By: #### CVDTBH #### [facility] [address] [place] [address] Dr. Sam Balderrama [facility]10 SARS-CoV-2 (COVID-19) RNA MANNY+probe Ql (Unsp spec) Detected Critically abnormal NOT DETECTED [facility] Comment on above: Result Comment: This test is not yet jose roved or cleared by the [place] FDA. When there are no FDA-approved or cleared tests available, and other criteria are met, FDA can make tests available under an emergency access mechanism called an Emergency Use Authorization (EUA). The EUA for this test is supported by the [employer] Operations [employer] Maintenance of Health and Human Service's declaration that [...] longer be used). Performed By: #### B REVERBERATORY SKIMMER, CMP, LIPA #### [facility] [address] [place] [address] Dr. Sam Balderrama LACTATE/LACTIC ACIDon 2021 Lactate [Moles/Vol] 1.6 mmol/L Normal 0.4-1.9 [facility] Comment on above: Performed By: #### A1C #### [facility] [address] [place] [address] Dr. Sam Balderrama Lactate [Moles/Vol] 2.2 mmol/L Critically high 0.4-1.9 [facility] Comment on above: Performed By: #### BNP, CMP, LIPA #### [facility] [address] [place] [address] Dr. Sam Balderrama LIPASEon 01-05-2022 Lipase [Catalytic activity/Vol] 110.0 U/L Normal 73.0-393.0 [facility] Comment on above: Performed By: #### BNP, CMP, LIPA #### [facility] [address] [place] [address] Dr. Sam Balderrama POINT OF CARE GLUCOSEon 12-10 Glucose [Mass/Vol] 220 mg/dL Critically high 74-106 [facility] Comment on above: Performed By: #### CVDTBH #### [facility] [address] [place] [address] Dr. Sam Balderrama Glucose [Mass/Vol] 136 mg/dL Critically high 74-106 [facility] Comment on above: Performed By: #### CVDTBH #### [facility] [address] [place] [address] Dr. Sam Balderrama Glucose [Mass/Vol] 156 mg/dL Critically high 74-106 [facility] Comment on above: Performed By: #### BNP, CMP, LIPA #### [facility] [address] [place] [address] Dr. Sam Balderrama PROF 14(COMP METB)on 022 Albumin [Mass/Vol] 2.8 g/dL Critically low 3.4-5.0 [facility] Comment on above: Performed By: #### BNP, CMP, LIPA #### [facility] [address] [address] [address] Sam Balderrama Albumin/Globulin [Mass ratio] 1.1 {ratio} Normal [facility] Comment on above: Performed By: #### BNP, CMP, LIPA #### [facility] [address] [address] [address] Sam Balderrama ALP [Catalytic activity/Vol] 57 U/L Normal 46-116 [facility] Comment on above: Performed By: #### BNP, CMP, LIPA #### [facility] [address] [address] [address] Sam Balderrama ALT [Catalytic activity/Vol] 38 U/L Normal 14-59 [facility] Comment on above: Performed By: #### BNP, CMP, LIPA #### [facility] [address] [address] [address] Sam Balderrama Anion gap [Moles/Vol] 10.2 mmol/L Normal [facility] Comment on above: Performed By: #### BNP, CMP, LIPA #### [facility] [address] [address] [address] Sam Baldrerama AST [Catalytic activity/Vol] 19 U/L Normal 15-37 [facility] Comment on above: Performed By: #### BNP, CMP, LIPA #### [facility] [address] [address] [address] Sam Balderrama Bilirubin [Mass/Vol] 0.9 mg/dL Normal 0.2-1.0 [facility] Comment on above: Performed By: #### BNP, CMP, LIPA #### [facility] [address] [address] [address] Sam Balderrama Calcium [Mass/Vol] 8.3 mg/dL Critically low 8.5-10.1 [facility] Comment on above: Performed By: #### BNP, CMP, LIPA #### [facility] [address] [address] [address] Sam Balderrama Chloride [Moles/Vol] 102 mmol/L Normal 98-107 [facility] Comment on above: Performed By: #### BNP, CMP, LIPA #### [facility] [address] [address] [address] Sam Balderrama CO2 [Moles/Vol] 29.1 mmol/L Normal 21.0-32.0 [facility] Comment on above: Performed By: #### BNP, CMP, LIPA #### [facility] [address] [address] [address] Sam Balderrama Creatinine [Mass/Vol] 0.88 mg/dL Normal 0.55-1.02 [facility] Comment on above: Performed By: #### BNP, CMP, LIPA #### [facility] [address] [place] [address] Dr. Sam Balderrama EGFR-AF NIGERIEN >60 Normal >=60 [facility] Comment on above: Performed By: #### BNP, CMP, LIPA #### [facility] [address] [place] [address] Dr. Sam Balderrama EGFR-NON AF NIGERIEN >60 Normal >=60 [facility] Comment on above: Performed By: #### BNP, CMP, LIPA #### [facility] [address] [place] [address] Dr. Sam Balderrama Globulin (S) [Mass/Vol] 2.6 g/dL Normal [facility] Comment on above: Performed By: #### BNP, CMP, LIPA #### [facility] [address] [place] [address] Dr. Sam Balderrama Glucose [Mass/Vol] 160 mg/dL Critically high 74-106 [facility] Comment on above: Performed By: #### BNP, CMP, LIPA #### [facility] [address] [place] [address] Dr. Sam Balderrama Potassium [Moles/Vol] 3.3 mmol/L Critically low 3.5-5.1 [facility] Comment on above: Performed By: #### BNP, CMP, LIPA #### [facility] [address] [address] [address] Sam Balderrama Protein [Mass/Vol] 5.4 g/dL Critically low 6.4-8.2 [facility] Comment on above: Performed By: #### BNP, CMP, LIPA #### [facility] [address] [address] [address] Sam Balderrama Sodium [Moles/Vol] 138 mmol/L Normal 136-145 [facility] Comment on above: Performed By: #### BNP, CMP, LIPA #### [facility] [address] [address] [address] Sam Balderrama Urea nitrogen [Mass/Vol] 18.0 mg/dL Normal 7.0-18.0 [facility] Comment on above: Performed By: #### BNP, CMP, LIPA #### [facility] [address] [place] [address] Dr. Sam Balderrama Urea nitrogen/Creatin ine [Mass ratio] 20.5 mg/mg Normal [facility] Comment on above: Performed By: #### BNP, CMP, LIPA #### [facility] [address] [place] [address] Dr. Sam Balderrama CARDIAC LINDA ADMITon 022 CK [Catalytic activity/Vol] 73 U/L Normal 26-192 [facility] Comment on above: Performed By: #### BNP, CMP, LIPA #### [facility] [address] [place] [address] Dr. Sam Balderrama CK.MB [Mass/Vol] 1.78 ng/mL Normal <=3.60 [facility] Comment on above: Performed By: #### BNP, CMP, LIPA #### [facility] [address] [place] [address] Dr. Sam Balderrama HSTROP 36.5 pg/mL Normal 4.0-51.3 [facility] Comment on above: Result Comment: CUT-OFF POINTS HAVE BEEN ESTABLISHED BASED ON THE FOURTH UNIVERSAL DEFINITIONS OF MYOCARDIAL INFARCTION. THE UPPER REFERENCE LIMIT (URL) OF TROPONIN, DEFINED THE 99TH PERCENTILE OF cTnI DISTRIBUTION IN A REFERENCE POPULATION, HAS BEEN CONFIRMED THE DECISION THRESHOLD FOR MS DIAGNOSIS. Performed By: #### B REVERBERATORY SKIMMER, CMP, LIPA #### [facility] [address] [address] [address] Sam Balderrama JAZMYNE 42 ng/mL Normal 9-82 [facility] Comment on above: Performed By: #### BNP, CMP, LIPA #### [facility] [address] [address] [address] Sam Balderrama CBC AUTO DIFFon 01-04-2022 BASO # 0.0 103/ul Normal 0.0-0.1 [facility] Comment on above: Performed By: #### CBC #### [facility] [address] [address] [address] Sam Balderrama Basophils/100 WBC (Bld) 0.1 % Critically low 0.2-2.0 [facility] Comment on above: Performed By: #### CBC #### [facility] [address] [place] [address] Dr. Sam Balderrama EO # 0.3 103/ul Normal 0.0-0.7 [facility] Comment on above: Performed By: #### CBC #### [facility] [address] [address] [address] Sam Balderrama Eosinophils/100 WBC (Bld) 1.7 % Normal 0.9-7.0 [facility] Comment on above: Performed By: #### CBC #### [facility] [address] [address] [address] Sam Balderrama Erythrocyte distribution width (RBC) [Ratio] 12.6 % Normal 11.0-15.0 [facility] Comment on above: Performed By: #### CBC #### [facility] [address] [address] [address] Sam Balderrama Hematocrit (Bld) [Volume fraction] 43.2 % Normal 36.0-48.0 [facility] Comment on above: Performed By: #### CBC #### [facility] [address] [address] [address] Sam Balderrama Hemoglobin (Bld) [Mass/Vol] 14.3 g/dL Normal 12.0-16.0 [facility] Comment on above: Performed By: #### CBC #### [facility] [address] [place] [address] Dr. Sam Balderrama IG # 0.85 10e3/ul Critically high 0.00-0.03 [facility] Comment on above: Performed By: #### CBC #### [facility] [address] [place] [address] Dr. Sam Balderrama IG % 5.3 % Critically high 0.0-0.5 [facility] Comment on above: Performed By: #### CBC #### [facility] [address] [place] [address] Dr. Sam Balderrama LYMPH # 2.6 103/ul Normal 1.2-3.8 [facility] Comment on above: Performed By: #### CBC #### [facility] [address] [place] [address] Dr. Sam Balderrama Lymphocytes/100 WBC (Bld) 16.4 % Critically low 20.5-60.0 [facility] Comment on above: Performed By: #### CBC #### [facility] [address] [place] [address] Dr. Sam Balderrama MANUAL DIFF REQ NO Normal [facility] Comment on above: Performed By: #### CBC #### [facility] [address] [place] [address] Dr. Sam Balderrama MCH (RBC) [Entitic mass] 31.0 pg Normal 26.7-34.0 [facility] Comment on above: Performed By: #### CBC #### [facility] [address] [place] [address] Dr. Sam Balderrama MCHC (RBC) [Mass/Vol] 33.1 g/dL Normal 29.9-35.2 [facility] Comment on above: Performed By: #### CBC #### [facility] [address] [place] [address] Dr. Sam Balderrama MCV (RBC) [Entitic vol] 93.7 fL Normal 81.0-99.0 [facility] Comment on above: Performed By: #### CBC #### [facility] [address] [place] [address] Dr. Sam Balderrama MONO # 1.2 103/ul Critically high 0.3-0.8 [facility] Comment on above: Performed By: #### CBC #### [facility] [address] [place] [address] Dr. Sam Balderrama Monocytes/100 WBC (Bld) 7.7 % Normal 1.7-12.0 [facility] Comment on above: Performed By: #### CBC #### [facility] [address] [place] [address] Dr. Sam Balderrama NEUT # 11.0 103/ul Critically high 1.4-6.5 [facility] Comment on above: Performed By: #### CBC #### [facility] [address] [place] [address] Dr. Sam Balderrama Neutrophils/100 WBC (Bld) 68.8 % Normal 43.0-75.0 [facility] Comment on above: Performed By: #### CBC #### [facility] [address] [place] [address] Dr. Sam Balderrama Platelet mean volume (Bld) [Entitic vol] 9.9 fL Normal 9.5-13.5 [facility] Comment on above: Performed By: #### CBC #### [facility] [address] [place] [address] Dr. Sam Balderrama PLT 337 103/ul Normal 150-450 [facility] Comment on above: Performed By: #### CBC #### [facility] [address] [place] [address] Dr. Sam Balderrama RBC 4.61 106/ul Normal 4.20-5.40 [facility] Comment on above: Performed By: #### CBC #### [facility] [address] [place] [address] Dr. Sam Balderrama WBC 16.0 103/ul Critically high 4.0-11.0 [facility] Comment on above: Performed By: #### CBC #### [facility] [address] [place] [address] Dr. Sam Balderrama CULTURE URINEon 01-04-2022 CULTURE URINE Culture Observations : HEAVY GROWTH OF MIXED GENITAL ALEJANDRO. NO POTENTIAL PATHOGENS SEEN. Normal [facility] Comment on above: Performed By: #### BNP, CMP, LIPA #### [facility] [address] [address] [address] Sam Balderrama ER URINE PROFILEon 2 Bilirubin Ql (U) Negative Normal NEGATIVE [facility] Comment on above: Performed By: #### A1C #### [facility] [address] [address] [address] Sam Balderrama Clarity (U) CLEAR Normal CLEAR [facility] Comment on above: Performed By: #### A1C #### [facility] [address] [place] [address] Dr. Sam Balderrama Color (U) LT. YELLOW Normal YELLOW [facility] Comment on above: Performed By: #### A1C #### [facility] [address] [place] [address] Dr. Sam Balderrama ERUGAETANO A micrscopic examina tion will be performed if indicated. Normal [facility] Comment on above: Performed By: #### A1C #### [facility] [address] [address] [address] Sam Balderrama Glucose Ql (U) Negative Normal NEGATIVE [facility] Comment on above: Performed By: #### A1C #### [facility] [address] [address] [address] Sam Balderrama Hemoglobin Ql (U) Negative Normal NEGATIVE [facility] Comment on above: Performed By: #### A1C #### [facility] [address] [address] [address] Sam Balderrama Ketones Ql (U) Negative Normal NEGATIVE [facility] Comment on above: Performed By: #### A1C #### [facility] [address] [address] [address] Sam Balderrama LEUKOCYTES TRACE Abnormal NEGATIVE [facility] Comment on above: Performed By: #### A1C #### [facility] [address] [address] [address] Sam Balderrama Nitrite Ql (U) Negative Normal NEGATIVE [facility] Comment on above: Performed By: #### A1C #### [facility] [address] [place] [address] Dr. Sam Balderrama pH (U) 6.0 [pH] Normal 5-9 [facility] Comment on above: Performed By: #### A1C #### [facility] [address] [place] [address] Dr. Sam Balderrama SPEC GRAVITY <=1.005 Abnormal 1.005-<=1.0 25 [facility] Comment on above: Performed By: #### A1C #### [facility] [address] [place] [address] Dr. Sam Balderrama UA PROTEIN Negative Normal NEGATIVE/ TRACE [facility] Comment on above: Performed By: #### A1C #### [facility] [address] [place] [address] Dr. Sam Balderrama UR MICRO IND INDICATED Normal [facility] Comment on above: Performed By: #### A1C #### [facility] [address] [place] [address] Dr. Sam Balderrama Urobilinogen Qn (U) 0.2 {Bruna'U}/dL Normal 0.2 - 1.0 [facility] Comment on above: Performed By: #### A1C #### [facility] [address] [place] [address] Dr. Sam Balderrama GI PANEL (PCR)on 01-04-2022 Adenovirus F 40/41 Not detected Normal NOT DETECTED [facility] Comment on above: Performed By: #### CVDTBH #### [facility] [address] [place] [address] Dr. Sam Balderrama Astrovirus Not detected Normal NOT DETECTED [facility] Comment on above: Performed By: #### CVDTBH #### [facility] [address] [place] [address] Dr. Sam Balderrama C. Diff toxin A/B Detected Critically abnormal NOT DETECTED [facility] Comment on above: Performed By: #### CVDTBH #### [facility] [address] [place] [address] Dr. Sam Balderrama Campylobacter Not detected Normal NOT DETECTED [facility] Comment on above: Performed By: #### CVDTBH #### [facility] [address] [address] [address] Sam Balderrama Cryptosporidium Not detected Normal NOT DETECTED [facility] Comment on above: Performed By: #### CVDTBH #### [facility] [address] [place] [address] Dr. Sam Balderrama Cyclos. Cayetanensis Not detected Normal NOT DETECTED [facility] Comment on above: Performed By: #### CVDTBH #### [facility] [address] [place] [address] Dr. Sam Balderrama E. Coli O157 Not Applicable Normal Not Applicable [facility] Comment on above: Performed By: #### CVDTBH #### [facility] [address] [place] [address] Dr. Sam Balderrama E. histolytica Not detected Normal NOT DETECTED [facility] Comment on above: Performed By: #### CVDTBH #### [facility] [address] [place] [address] Dr. Sam Balderrama EAEC Not detected Normal NOT DETECTED [facility] Comment on above: Performed By: #### CVDTBH #### [facility] [address] [place] [address] Dr. Sam Balderrama EIEC Not detected Normal NOT DETECTED [facility] Comment on above: Performed By: #### CVDTBH #### [facility] [address] [place] [address] Dr. Sam Balderrama EPEC Not detected Normal NOT DETECTED [facility] Comment on above: Performed By: #### CVDTBH #### [facility] [address] [place] [address] Dr. Sam Balderrama ETEC Not detected Normal NOT DETECTED [facility] Comment on above: Performed By: #### CVDTBH #### [facility] [address] [place] [address] Dr. Sam Balderrama G. Lamblia Not detected Normal NOT DETECTED [facility] Comment on above: Performed By: #### CVDTBH #### [facility] [address] [address] [address] Sam STORY CONTROLS PASSED Normal [facility] Comment on above: Performed By: #### CVDTBH #### [facility] [address] [place] [address] Dr. Sam [facility] HEADER GI PANEL BACTERIA Normal [facility] Comment on above: Performed By: #### CVDTBH #### [facility] [address] [place] [address] Dr. Sam FUNES ECOLI GI PANEL DIARRHEAGEN IC E.COLI / SHIGELLA Normal [facility] Comment on above: Performed By: #### CVDTBH #### [facility] [address] [place] [address] Dr. Sam FUNES INFO SEE BELOW Normal [facility] Comment on above: Result Comment: EAEC- Enteroaggregative E. Coli EPEC- Enteropathogenic E. Coli ETEC- Enterotoxigenic E. Coli lt/st STEC- Shigella-like toxin-producing E. Coli stx1/stx2 EIEC- Shigella/Enteroinvasive E. Coli Performed By: #### C VDTBH #### [facility] [address] [place] [address] Dr. Sam FUNES PARASITES GI PANEL PARASITES Normal [facility] Comment on above: Performed By: #### CVDTBH #### [facility] [address] [place] [address] Dr. Sam FUNES VIRUS GI PANEL VIRUSES Normal [facility] Comment on above: Performed By: #### CVDTBH #### [facility] [address] [place] [address] Dr. Sam Balderrama Norovirus GI/GII Not detected Normal NOT DETECTED [facility] Comment on above: Performed By: #### CVDTBH #### [facility] [address] [place] [address] Dr. Sam Balderrama P. Shigelloides Not detected Normal NOT DETECTED [facility] Comment on above: Performed By: #### CVDTBH #### [facility] [address] [place] [address] Dr. Sam Balderrama Rotavirus A Not detected Normal NOT DETECTED [facility] Comment on above: Performed By: #### CVDTBH #### [facility] [address] [place] [address] Dr. Sam Balderrama Salmonella Not detected Normal NOT DETECTED [facility] Comment on above: Performed By: #### CVDTBH #### [facility] [address] [place] [address] Dr. Sam Balderrama Sapovirus Not detected Normal NOT DETECTED [facility] Comment on above: Performed By: #### CVDTBH #### [facility] [address] [place] [address] Dr. Sam Balderrama STEC Not detected Normal NOT DETECTED [facility] Comment on above: Performed By: #### CVDTBH #### [facility] [address] [place] [address] Dr. Sam Balderrama Vibrio Not detected Normal NOT DETECTED [facility] Comment on above: Performed By: #### CVDTBH #### [facility] [address] [place] [address] Dr. Sam Balderrama Vibrio Cholera Not detected Normal NOT DETECTED [facility] Comment on above: Performed By: #### CVDTBH #### [facility] [address] [place] [address] Dr. Sam Balderrama Y. Enterocolitica Not detected Normal NOT DETECTED [facility] Comment on above: Performed By: #### CVDTBH #### [facility] [address] [place] [address] Dr. Sam Balderrama LIPASEon 01-04-2022 Lipase [Catalytic activity/Vol] 799.0 U/L Critically high 73.0-393.0 [facility] Comment on above: Performed By: #### BNP, CMP, LIPA #### [facility] [address] [place] [address] Dr. Sam Balderrama PROF 14(COMP METB)on 022 Albumin [Mass/Vol] 3.8 g/dL Normal 3.4-5.0 [facility] Comment on above: Performed By: #### BNP, CMP, LIPA #### [facility] [address] [address] [address] Sam Balderrama Albumin/Globulin [Mass ratio] 1.2 {ratio} Normal [facility] Comment on above: Performed By: #### BNP, CMP, LIPA #### [facility] [address] [address] [address] Sam Balderrama ALP [Catalytic activity/Vol] 72 U/L Normal 46-116 [facility] Comment on above: Performed By: #### BNP, CMP, LIPA #### [facility] [address] [address] [address] Sam Balderrama ALT [Catalytic activity/Vol] 49 U/L Normal 14-59 [facility] Comment on above: Performed By: #### BNP, CMP, LIPA #### [facility] [address] [address] [address] Sam Balderrama Anion gap [Moles/Vol] 13.2 mmol/L Normal [facility] Comment on above: Performed By: #### BNP, CMP, LIPA #### [facility] [address] [address] [address] Sam Balderrama AST [Catalytic activity/Vol] 24 U/L Normal 15-37 [facility] Comment on above: Performed By: #### BNP, CMP, LIPA #### [facility] [address] [address] [address] Sam Balderrama Bilirubin [Mass/Vol] 0.9 mg/dL Normal 0.2-1.0 [facility] Comment on above: Performed By: #### BNP, CMP, LIPA #### [facility] [address] [address] [address] Sam Balderrama Calcium [Mass/Vol] 9.2 mg/dL Normal 8.5-10.1 [facility] Comment on above: Performed By: #### BNP, CMP, LIPA #### [facility] [address] [address] [address] Sam Balderrama Chloride [Moles/Vol] 95 mmol/L Critically low 98-107 [facility] Comment on above: Performed By: #### BNP, CMP, LIPA #### [facility] [address] [address] [address] Sam Balderrama CO2 [Moles/Vol] 28.9 mmol/L Normal 21.0-32.0 [facility] Comment on above: Performed By: #### BNP, CMP, LIPA #### [facility] [address] [address] [address] Sam Balderrama Creatinine [Mass/Vol] 1.23 mg/dL Critically high 0.55-1.02 [facility] Comment on above: Performed By: #### BNP, CMP, LIPA #### [facility] [address] [address] [address] Sam Balderrama EGFR-AF NIGERIEN 51 mL/min/1.73m2 Critically low >=60 [facility] Comment on above: Performed By: #### BNP, CMP, LIPA #### [facility] [address] [address] [address] Sam Balderrama EGFR-NON AF NIGERIEN 42 mL/min/1.73m2 Critically low >=60 [facility] Comment on above: Performed By: #### BNP, CMP, LIPA #### [facility] [address] [address] [address] Sam Balderrama Globulin (S) [Mass/Vol] 3.2 g/dL Normal [facility] Comment on above: Performed By: #### BNP, CMP, LIPA #### [facility] [address] [address] [address] Sam Balderrama Glucose [Mass/Vol] 204 mg/dL Critically high 74-106 [facility] Comment on above: Performed By: #### BNP, CMP, LIPA #### [facility] [address] [address] [address] Sam Balderrama Potassium [Moles/Vol] 4.1 mmol/L Normal 3.5-5.1 [facility] Comment on above: Performed By: #### BNP, CMP, LIPA #### [facility] [address] [address] [address] Sam Balderrama Protein [Mass/Vol] 7.0 g/dL Normal 6.4-8.2 [facility] Comment on above: Performed By: #### BNP, CMP, LIPA #### [facility] [address] [place] [address] Dr. Sam Balderrama Sodium [Moles/Vol] 133 mmol/L Critically low 136-145 [facility] Comment on above: Performed By: #### BNP, CMP, LIPA #### [facility] [address] [place] [address] Dr. Sam Balderrama Urea nitrogen [Mass/Vol] 32.0 mg/dL Critically high 7.0-18.0 [facility] Comment on above: Performed By: #### BNP, CMP, LIPA #### [facility] [address] [place] [address] Dr. Sam Balderrama Urea nitrogen/Creatin ine [Mass ratio] 26.0 mg/mg Normal [facility] Comment on above: Performed By: #### BNP, CMP, LIPA #### [facility] [address] [place] [address] Dr. Sam Balderrama URINE MICROSCOPIC ONLYon BACTERIA TRACE Abnormal NONE SEEN [facility] Comment on above: Performed By: #### A1C #### [facility] [address] [place] [address] Dr. Sam Balderrama Bacteria identified Cx Nom (U) INDICATED Normal [facility] Comment on above: Performed By: #### A1C #### [facility] [address] [place] [address] Dr. Sam Balderrama CAST SEEN Abnormal NONE SEEN [facility] Comment on above: Performed By: #### A1C #### [facility] [address] [place] [address] Dr. Sam Balderrama Crystals LM Nom (Urine sed) NONE SEEN Normal NONE SEEN [facility] Comment on above: Performed By: #### A1C #### [facility] [address] [place] [address] Dr. Sam Balderrama Epithelial cells LM Ql (Urine sed) MODERATE Abnormal NONE SEEN /RARE [facility] Comment on above: Performed By: #### A1C #### [facility] [address] [address] [address] Sam Balderrama MUCOUS NONE SEEN Normal NONE SEEN [facility] Comment on above: Performed By: #### A1C #### [facility] [address] [place] [address] Dr. Sam Balderrama RBC 0-2 Normal 0-2 [facility] Comment on above: Performed By: #### A1C #### [facility] [address] [place] [address] Dr. Sam Balderrama WBC 2-5 Abnormal NONE SEEN [facility] Comment on above: Performed By: #### A1C #### [facility] [address] [place] [address] Dr. Sam Balderrama XR CHEST 1 Von [...] CELIA WALTON Date: 2022-01-04 21:03 Normal [facility] BNPon 12-26-2021 Natriuretic peptide B (Bld) [Mass/Vol] 266.0 pg/mL Normal <=1,800.0 [facility] Comment on above: Performed By: #### BMP, HSTROPN, BNP ### # [facility] [address] [place] [address] Dr. Sam Balderrama CBC AUTO DIFFon 12-26-2021 BASO # 0.0 103/ul Normal 0.0-0.1 [facility] Comment on above: Performed By: #### CBC #### [facility] [address] [place] [address] Dr. Sam Balderrama Basophils/100 WBC (Bld) 0.4 % Normal 0.2-2.0 [facility] Comment on above: Performed By: #### CBC #### [facility] [address] [place] [address] Dr. Sam Balderrama EO # 0.0 103/ul Normal 0.0-0.7 [facility] Comment on above: Performed By: #### CBC #### [facility] [address] [place] [address] Dr. Sam Balderrama Eosinophils/100 WBC (Bld) 0.0 % Critically low 0.9-7.0 [facility] Comment on above: Performed By: #### CBC #### [facility] [address] [place] [address] Dr. Sam Balderrama Erythrocyte distribution width (RBC) [Ratio] 12.5 % Normal 11.0-15.0 [facility] Comment on above: Performed By: #### CBC #### [facility] [address] [place] [address] Dr. Sam Balderrama Hematocrit (Bld) [Volume fraction] 38.0 % Normal 36.0-48.0 [facility] Comment on above: Performed By: #### CBC #### [facility] [address] [place] [address] Dr. Sam Balderrama Hemoglobin (Bld) [Mass/Vol] 12.4 g/dL Normal 12.0-16.0 [facility] Comment on above: Performed By: #### CBC #### [facility] [address] [place] [address] Dr. Sam Balderrama IG # 0.03 10e3/ul Normal 0.00-0.03 [facility] Comment on above: Performed By: #### CBC #### [facility] [address] [place] [address] Dr. Sam Balderrama IG % 0.4 % Normal 0.0-0.5 [facility] Comment on above: Performed By: #### CBC #### [facility] [address] [place] [address] Dr. Sam Balderrama LYMPH # 0.8 103/ul Critically low 1.2-3.8 [facility] Comment on above: Performed By: #### CBC #### [facility] [address] [place] [address] Dr. Sam Balderrama Lymphocytes/100 WBC (Bld) 10.9 % Critically low 20.5-60.0 [facility] Comment on above: Performed By: #### CBC #### [facility] [address] [place] [address] Dr. Sam Balderrama MANUAL DIFF REQ NO Normal [facility] Comment on above: Performed By: #### CBC #### [facility] [address] [place] [address] Dr. Sam Balderrama MCH (RBC) [Entitic mass] 30.8 pg Normal 26.7-34.0 [facility] Comment on above: Performed By: #### CBC #### [facility] [address] [place] [address] Dr. Sam Balderrama MCHC (RBC) [Mass/Vol] 32.6 g/dL Normal 29.9-35.2 [facility] Comment on above: Performed By: #### CBC #### [facility] [address] [place] [address] Dr. Sam Balderrama MCV (RBC) [Entitic vol] 94.3 fL Normal 81.0-99.0 [facility] Comment on above: Performed By: #### CBC #### [facility] [address] [place] [address] Dr. Sam Balderrama MONO # 0.7 103/ul Normal 0.3-0.8 [facility] Comment on above: Performed By: #### CBC #### [facility] [address] [place] [address] Dr. Sam Balderrama Monocytes/100 WBC (Bld) 9.6 % Normal 1.7-12.0 [facility] Comment on above: Performed By: #### CBC #### [facility] [address] [place] [address] Dr. Sam Balderrama NEUT # 5.5 103/ul Normal 1.4-6.5 [facility] Comment on above: Performed By: #### CBC #### [facility] [address] [place] [address] Dr. Sam Balderrama Neutrophils/100 WBC (Bld) 78.7 % Critically high 43.0-75.0 [facility] Comment on above: Performed By: #### CBC #### [facility] [address] [place] [address] Dr. Sam Balderrama Platelet mean volume (Bld) [Entitic vol] 10.2 fL Normal 9.5-13.5 [facility] Comment on above: Performed By: #### CBC #### [facility] [address] [place] [address] Dr. Sam Balderrama PLT 227 103/ul Normal 150-450 [facility] Comment on above: Performed By: #### CBC #### [facility] [address] [place] [address] Dr. Sam Balderrama RBC 4.03 106/ul Critically low 4.20-5.40 [facility] Comment on above: Performed By: #### CBC #### [facility] [address] [place] [address] Dr. Sam Balderrama WBC 7.0 103/ul Normal 4.0-11.0 [facility] Comment on above: Performed By: #### CBC #### [facility] [address] [place] [address] Dr. Sam Balderrama INFLUENZA A AND B AGon 12-26 INFLUANEGH SEE BELOW Normal [facility] Comment on above: Result Comment: Negative for Flu A prote in angiten. Infection due to Flu A cannot be ruled out. Flu A angiten in the sample may be below the detection limit of the test. Performed By: #### A 1C #### [facility] [address] [place] [address] Dr. Sam Balderrama INFLUBNEGH SEE BELOW Normal [facility] Comment on above: Result Comment: Negative for Flu B prote in antigen. Infection due to Flu B cannot be ruled out. Flu B antigen in the sample may be below the detection limit of the test. Performed By: #### A 1C #### [facility] [address] [place] [address] Dr. Sam Balderrama INFLUENZA A AG Negative Normal NEGATIVE SEE COMMENT [facility] Comment on above: Performed By: #### A1C #### [facility] [address] [place] [address] Dr. Sam Balderrama INFLUENZA B AG Negative Normal NEGATIVE SEE COMMENT [facility] Comment on above: Performed By: #### A1C #### [facility] [address] [place] [address] Dr. Sam Balderrama INTERNAL CONTROLS Within Normal Limits Normal Within Normal Limits [facility] Comment on above: Performed By: #### A1C #### [facility] [address] [place] [address] Dr. Sam Balderrama PROF CHEM 8 (BAS METB)on Anion gap [Moles/Vol] 10.9 mmol/L Normal [facility] Comment on above: Performed By: #### BNP, CMP, LIPA #### [facility] [address] [place] [address] Dr. Sam Balderraam Calcium [Mass/Vol] 9.1 mg/dL Normal 8.5-10.1 [facility] Comment on above: Performed By: #### BNP, CMP, LIPA #### [facility] [address] [place] [address] Dr. Sam Balderrama Chloride [Moles/Vol] 102 mmol/L Normal 98-107 [facility] Comment on above: Performed By: #### BNP, CMP, LIPA #### [facility] [address] [place] [address] Dr. Sam Balderrama CO2 [Moles/Vol] 29.5 mmol/L Normal 21.0-32.0 [facility] Comment on above: Performed By: #### BNP, CMP, LIPA #### [facility] [address] [place] [address] Dr. Sam Balderrama Creatinine [Mass/Vol] 0.99 mg/dL Normal 0.55-1.02 [facility] Comment on above: Performed By: #### BNP, CMP, LIPA #### [facility] [address] [place] [address] Dr. aSm Balderrama EGFR-AF NIGERIEN >60 Normal >=60 [facility] Comment on above: Performed By: #### BNP, CMP, LIPA #### [facility] [address] [address] [address] Sam Balderrama EGFR-NON AF NIGERIEN 54 mL/min/1.73m2 Critically low >=60 [facility] Comment on above: Performed By: #### BNP, CMP, LIPA #### [facility] [address] [address] [address] Sam Balderrama Glucose [Mass/Vol] 193 mg/dL Critically high 74-106 [facility] Comment on above: Performed By: #### BNP, CMP, LIPA #### [facility] [address] [address] [address] Sam Balderrama Potassium [Moles/Vol] 3.4 mmol/L Critically low 3.5-5.1 [facility] Comment on above: Performed By: #### BNP, CMP, LIPA #### [facility] [address] [address] [address] Sam Balderrama Sodium [Moles/Vol] 139 mmol/L Normal 136-145 [facility] Comment on above: Performed By: #### BNP, CMP, LIPA #### [facility] [address] [address] [address] Sam Balderrama Urea nitrogen [Mass/Vol] 15.0 mg/dL Normal 7.0-18.0 [facility] Comment on above: Performed By: #### BNP, CMP, LIPA #### [facility] [address] [address] [address] Sam Balderrama Urea nitrogen/Creatin ine [Mass ratio] 15.2 mg/mg Normal [facility] Comment on above: Performed By: #### BNP, CMP, LIPA #### [facility] [address] [address] [address] Sam Balderrama TROPONIN, HIGH SENSITIVITYon 12-26-2021 HSTROP 11.1 pg/mL Normal 4.0-51.3 [facility] Comment on above: Result Comment: CUT-OFF POINTS HAVE BEEN ESTABLISHED BASED ON THE FOURTH UNIVERSAL DEFINITIONS OF MYOCARDIAL INFARCTION. THE UPPER REFERENCE LIMIT (URL) OF TROPONIN, DEFINED THE 99TH PERCENTILE OF cTnI DISTRIBUTION IN A REFERENCE POPULATION, HAS BEEN CONFIRMED THE DECISION THRESHOLD FOR MS DIAGNOSIS. Performed By: #### B REVERBERATORY SKIMMER, CMP, LIPA #### [facility] [address] [place], [place] [address] Dr. Sam Balderrama XR CHEST 1 Von [...] JAZZ MASON Date: 2021-12-26 16:51 Normal [facility] Covid-19 PCR (CVDTB)on 12-09 SARS-CoV-2 (COVID-19) RNA MANNY+probe Ql (Unsp spec) Detected Critically abnormal NOT DETECTED [facility] Comment on above: Result Comment: This test is not yet jose roved or cleared by the [place] FDA. When there are no FDA-approved or cleared tests available, and other criteria are met, FDA can make tests available under an emergency access mechanism called an Emergency Use Authorization (EUA). The EUA for this test is supported by the [employer] Operations [employer] Maintenance of Health and Human Service's (HHS's) declaration [...] longer be used). Performed By: #### C VDTB #### [facility] [address] [place], [place] [address] Dr. Sam Balderrama Discharge Summaryon 09-19-19 18 Discharge Summary MR[id number] Admitted: 09/15/2017 Discharged: 09/18/2017 Date of : 1945 Physician: Krunal Farhat, M.D. DISCHARGE SUMMARYPRIMARY DIAGNOSIS: Non-ST elevation myocardial infarction, diagnosed bytakotsubo cardiomyopathy.SECONDARY DIAGNOSES:1. Hypertension.2. Hyperlipidemia.3. Hypothyroidism.HOSPITAL COURSE: A 72-year-old female patient with past medical history ofhypertension, hyperlipidemia, hypothyroidism, presents to the emergencydepartment with chest pain. The patient said that the pain startedsuddenly, substernal, pressure-like the patient's troponinswere found to be elevated at 1.7 and she had T-wave inversion. Therefore,the patient was taken to the cathodic protection technician the next day. Her cathodic protection technician showednonobstructive coronary angiograms. The left main [...] Dict: 09/18/2017/02:27 P/Bruce Barrett Trans: 09/19/2017 11:34 A/[id number]: Ruiz Yee D.O. [address] [facility], [address] [facility] [address] Normal [facility] POC GLUCOSE LABon 09-18-2017 Glucose mass conc 181 mg/dL High 70-100 [facility] Comment on above: Performed By: #### [id number], [id number], [id number] # ###[address] Cardiovascular Lab Reporton 09-17-2017 Cardiovascular Lab Report [facility] Patient Name: Ariadna Copeland [facility] MR #: [id number] Physician: Micki Bro,Department of M.D.Medicine Service Date: 09/16/2017Division of Birthdate: 1945ardiology Room #: 3AB [id number] [address] Cardiovascular Laboratory ReportFINAL IMPRESSION:Normal epicardial coronary [...] sheath was placed and then we used 5-Tuvaluan JR5,JL3.5, JL4, ultimate an XB LT 3.5-Tuvaluan guide to engage the left coronaryostium. We were able to engage with 4-Tuvaluan JL4 angiography wasperformed. After that, we wanted [...] ostial 40% stenosis, but no damping with 5-Tuvaluan catheters. This is the dominant vessel.Electronically Signed by:Micki Bro M.D. 09/23/2017 12:56 P Micki Bro M.D.Date Dict: 09/16/2017/10:16 Ira/Micki Bro M.D.Date Trans: 09/17/2017 07:11 Ira/Amparo_JN:[id number]: Ruiz Yee D.O. [address] [place] [id number] Normal [facility] POC GLUCOSE LABon 09-17-2017 Glucose mass conc 210 mg/dL High 70-100 [facility] Comment on above: Performed By: #### [id number], [id number], 17000 # ###[facility] [facility] [place] [address], [facility] Glucose mass conc 128 mg/dL High 70-100 [facility] Comment on above: Performed By: #### 93343, 18807, 51467 # ###[facility] [facility] [place] [address], [facility] Glucose mass conc 193 mg/dL High 70-100 [facility] Comment on above: Performed By: #### 12800, 28222, 09337 # ###[facility] [place] [address], [facility] Glucose mass conc 162 mg/dL High 70-100 [facility] Comment on above: Performed By: #### 63762, 19661, 10497 # ###[facility] [place] [address], [facility] BASIC METABOLIC PANELon 02-0 Calcium 9.5 mg/dL Normal 8.6-10.3 [facility] Comment on above: Order Comment: No: Do not add to previou s draw Performed By: #### 0 0071, 83782, 92998 ####[facility] [place] [address], [facility] Chloride 101 mmol/L Normal 98-107 [facility] Comment on above: Order Comment: No: Do not add to previou s draw Performed By: #### 0 0071, 80789, 55611 ####[facility] [place] [address], [facility] CO2 28 mmol/L Normal 21-31 [facility] Comment on above: Order Comment: No: Do not add to previou s draw Performed By: #### 0 0071, 19435, 46992 ####[facility] [place] [address], [facility] Creatinine 1.04 mg/dL Normal 0.60-1.20 [facility] Comment on above: Order Comment: No: Do not add to previou s draw Performed By: #### 0 0071, 57907, 99420 ####[facility] [place] [address], [facility] eGFR (black) mL/min/{1.73_m2} Normal >60 [facility] Comment on above: Order Comment: No: Do not add to previou s draw Result Comment: Calc ulation may not be valid for patients over 70 years Performed By: #### 0 0071, 42158, 77238 ####[facility] eGFR (non-black) 52 ml/min/1.73sq m Abnormal >60 [facility] Comment on above: Order Comment: No: Do not add to previou s draw Result Comment: Calc ulation may not be valid for patients over 70 years Performed By: #### 0 0071, 79238, 09934 ####[facility] [place] [address], [facility] Glucose mass conc 215 mg/dL High 70-100 [facility] Comment on above: Order Comment: No: Do not add to previou s draw Performed By: #### 0 0071, 99212, 61346 ####[facility] [place] [address], [facility] Potassium molar conc 4.3 mmol/L Normal 3.5-5.1 [facility] Comment on above: Order Comment: No: Do not add to previou s draw Performed By: #### 0 0071, 61342, 50612 ####[facility] [place] [address], [facility] Sodium 138 mmol/L Normal 136-145 [facility] [facility] Comment on above: Order Comment: No: Do not add to previou s draw Performed By: #### 0 0071, 99724, 47120 ####[facility] [place] [address], [facility] Urea nitrogen 20 mg/dL Normal 7-25 [facility] Comment on above: Order Comment: No: Do not add to previou s draw Performed By: #### 0 0071, 70977, 14579 ####[facility] [facility].[address] CBC COMPLETE BLOOD COUNTon 0 09-16-2017 Erythrocyte distribution width Auto Ratio (RBC) 12.8 % Normal 11.5-15.0 [facility] Comment on above: Order Comment: No: Do not add to previou s draw Performed By: #### 5 0608 ####[facility] Erythrocytes (RBC) 3.71 10*6/uL Low 3.80-5.00 [facility] Comment on above: Order Comment: No: Do not add to previou s draw Performed By: #### 5 0608 ####[address] Erythrocytes (RBC) 0 % Normal 0-0 [facility] Comment on above: Order Comment: No: Do not add to previou s draw Performed By: #### 5 0608 ####[facility] Hematocrit (HCT) 34.1 % Low 36.0-45.0 [facility] Comment on above: Order Comment: No: Do not add to previou s draw Performed By: #### 5 0608 ####[facility]3000 [facility].[address] Hemoglobin mass conc (Bld) 11.6 g/dL Low 12.0-15.0 [facility] Comment on above: Order Comment: No: Do not add to previou s draw Performed By: #### 5 0608 ####[address] MCH 31.3 pg Normal 27.0-33.0 [facility] Comment on above: Order Comment: No: Do not add to previou s draw Performed By: #### 5 0608 ####[address] MCHC mass conc (RBC) 34.0 g/dL Normal 32.0-35.0 [facility] Comment on above: Order Comment: No: Do not add to previou s draw Performed By: #### 5 0608 ####[address] MCV 91.9 fL Normal 82.0-98.0 [facility] Comment on above: Order Comment: No: Do not add to previou s draw Performed By: #### 5 0608 ####[address] PLAT CNT 245 10*3/uL Normal 150-400 [facility] Comment on above: Order Comment: No: Do not add to previou s draw Performed By: #### 5 0608 ####[address] WBC (Leukocytes) 10.8 10*3/uL High 4.0-10.6 [facility] Comment on above: Order Comment: No: Do not add to previou s draw Performed By: #### 5 0608 ####[address] HEMOGLOBIN A1Con 09-16-2017 Glucose mass conc 189 mg/dL High 70-126 [facility] Comment on above: Order Comment: Yes: Add to Previous draw if abledraw with UFH at 3am per RN NadaSS Performed By: #### 0 0071, 43109, 38909 ####[address] Hemoglobin A1c/Hemoglobin.t otal mass fraction (Bld) 8.2 % High 4.0-6.0 [facility] Comment on above: Order Comment: Yes: Add to Previous draw if abledraw with UFH at 3am per RN NadaSS Performed By: #### 0 0071, 84144, 35853 ####[facility].[address] History and Physicalon 09-16 History and Physical [id number] Admitted: 09/15/2017 Date of : 1945 Attending Physician: JESSICA Ramirez MD Room #: 3AB [id number] Discharge Date: HISTORY AND PHYSICALCHIEF COMPLAINT: Chest [...] on-call was called.Case was discussed with the courtesy driver who recommended to continueon heparin and nitro drip, repeat troponin every 6 hours. During theinterview, the patient is complaining of chest pain while she was talking.Also during the interview, coordinator of rehabilitation services showed the patient had multiplePVCs. courtesy driver was called and updated about the new [...] levothyroxine 75 mcg, lisinopril with hydrochlorothiazide , kgaczgbzim53 mg daily.SOCIAL HISTORY: The patient denies smoking, [...] 1.01. White blood cells 10.4, hemoglobin 12.9, . Troponin 1.87. Glucose 199, creatinine 1.17, potassium 3.5.ASSESSMENT:1. Chest pain, most likely due to dbo-KD-atanwkysv myocardial infarction.2. Pjt-LE-aombubsws myocardial infarction.3. Essential hypertension.4. Hyperglycemia, rule out [...] Signed by:JESSICA Ramirez MD 09/16/2017 04:13 A __JESSICA Ramirez, MDDate Dict: 09/15/2017/11:08 P/KRISTAN Uribeate Trans: 09/15/2017 11:49 P/mmoDN_JN:[id number] Normal [facility] MAGNESIUM BLOODon 09-16-2017 Magnesium 2.0 mg/dL Normal 1.9-2.7 [facility] Comment on above: Order Comment: No: Do not add to previou s draw Performed By: #### 0 0071, 60310, 93219 ####[facility] PHOSPHORUS BLOODon 8 Phosphate 3.8 mg/dL Normal 2.5-5.0 [facility] Comment on above: Order Comment: No: Do not add to previou s draw Performed By: #### 4 1000, 72889, 35172, 86288 ####[facility] POC GLUCOSE LABon 09-16-2017 Glucose mass conc 236 mg/dL High 70-100 [facility] Comment on above: Performed By: #### 16865, 53366, 80409 # ###[facility] [place] [address], [facility] Glucose mass conc 140 mg/dL High 70-100 [facility] Comment on above: Performed By: #### 23596, 81176, 89065 # ###[facility] [place] [address], [facility] Glucose mass conc 156 mg/dL High 70-100 [facility] Comment on above: Performed By: #### 65245, 62207, 21861 # ###[facility] [place] [address], [facility] Glucose mass conc 152 mg/dL High 70-100 [facility] Comment on above: Performed By: #### 60673, 93798, 11352 # ###[facility] [facility].[address] PROTHROMBIN TIMEon 8 INR Coag RelTime (PPP) 1.07 {INR} Normal 0.91-1.16 [facility] Comment on above: Result Comment: ACCCP RECOMMENDED INR FO R WARFARIN THERAPY CONDITION INRPROPHYLAXIS OF VENOUS THROMBOSIS 2-3(HIGH-RISK SURGERY)TREATMENT OF VENOUS THROMBOSIS 2-3TREATMENT OF PULMONARY EMBOLISM 2-3PREVENTION OF SYSTEMIC EMBOLISM: 2-3 ACUTE MYOCARDIAL INFARCTION TISSUE HEART VALVES VALVULAR HEART DISEASE ATRIAL FIBRILLATION RECURRENT SYSTEMIC EMBOLISMMECHANICAL HEART VALVE 2.5-3.5 FROM: ORAL ANTICOAGULANTS. MECHANISM OF ACTION, CLINICALEFFECTIVENESS, AND OPTIMAL THERAPEUTIC RANGE. [id number];108:231S-246S. Performed By: #### 0 0071, 23545, 46065 ####[facility]3000 [facility].[address] Prothrombin time (PT) Coag time (PPP) 13.9 s Normal 12.3-14.8 [facility] Comment on above: Result Comment: ALL RESULTS MUST BE INTE RPRETED WITH RESPECT TO BLOOD DRAWING ARTIFACTOR DILUTION ERROR OF ANTICOAGULANT AT THE TIME OF SAMPLING. Performed By: #### 0 0071, 47635, 10965 ####[facility]3000 [facility].[address] TROPONIN-Ion 09-16-2017 Troponin I.cardiac mass conc 1.75 ng/mL Critically high 0.00-0.04 [facility] Comment on above: Result Comment: REFERENCE RANGES: 0.00 - 0.04 ng/ml NORMAL 0.05 - 0.50 ng/ml INDETERMINATE > 0.50 ng/ml CONSISTENT WITH AN M.I. Performed By: #### 0 0071, 13527, 16840 ####[facility]3000 [facility].[address] UFH HEPARIN ASSAYon 09-16-19 18 UNFRACTIONATED HEPARIN 0.39 IU/mL Normal 0.30-0.70 [facility] Comment on above: Result Comment: Rivaroxaban and Apixaban will interfere with the anti Xa assay used tomonitor UFH and LMWH. Performed By: #### 0 0071, 72384, 06554 ####[facility]3000 [facility].[address] UNFRACTIONATED HEPARIN 0.52 IU/mL Normal 0.30-0.70 [facility] Comment on above: Result Comment: Rivaroxaban and Apixaban will interfere with the anti Xa assay used tomonitor UFH and LMWH. Performed By: #### 0 0071, 10126, 43716 ####[facility]3000 [facility].[address] APTTon 09-15-2017 aPTT 30.5 s Normal 25.0-35.0 [facility] Comment on above: Result Comment: ALL [...] THIS PURPOSE. Performed By: #### 5 7307, 62111, 54677 ####[facility]3000 [facility].[address] BASIC METABOLIC PANELon Calcium 9.8 mg/dL Normal 8.6-10.3 [facility] Comment on above: Performed By: #### 94734, 43307, 82266 # ###[facility] [facility] [place] [address], [facility] Chloride 99 mmol/L Normal 98-107 [facility] Comment on above: Performed By: #### 23207, 85467, 80055 # ###[facility] [facility] [place] [address], [facility] CO2 28 mmol/L Normal 21-31 [facility] Comment on above: Performed By: #### 42980, 24211, 67716 # ###[facility] [facility] [place] [address], [facility] Creatinine 1.17 mg/dL Normal 0.60-1.20 [facility] Comment on above: Performed By: #### 69528, 19202, 55593 # ###[facility]3000 [facility].[address] eGFR (black) 55 ml/min/1.73sq m Abnormal >60 [facility] Comment on above: Result Comment: Calculation may not be v alid for patients over 70 years Performed By: #### 0 0071, 41169, 14936 ####[facility]3000 [facility].[address] eGFR (non-black) 45 ml/min/1.73sq m Abnormal >60 [facility] Comment on above: Result Comment: Calculation may not be v alid for patients over 70 years Performed By: #### 0 0071, 93429, 47383 ####[facility]3000 [facility].[address] Glucose mass conc 199 mg/dL High 70-100 [facility] Comment on above: Performed By: #### 92851, 24924, 92293 # ###[facility]3000 [facility].[address] Potassium molar conc 3.5 mmol/L Normal 3.5-5.1 [facility] Comment on above: Performed By: #### 89306, 40335, 68301 # ###[place] [address] [facility].[address] Sodium 138 mmol/L Normal 136-145 [facility] Comment on above: Performed By: #### 27269, 25557, 39460 # ###[facility]3000 [facility].[address] Urea nitrogen 21 mg/dL Normal 7-25 [facility] Comment on above: Performed By: #### 53095, 67613, 94110 # ###[facility] [facility] [place] [address], [facility] CBC W/DIFFon 09-15-2017 ABS BASOPHILS 0.1 10*3/uL Normal 0.0-0.2 [facility] Comment on above: Performed By: #### 04133 ####[facility]3000 [facility].[address] ABS IMM GRANS 0.1 10*3/uL Normal 0.0-0.2 [facility] Comment on above: Performed By: #### 18406 ####[facility]3000 [facility].[address] Basophils Auto #/vol (Bld) 0.5 % Normal 0.0-1.0 [facility] Comment on above: Performed By: #### 40756 ####[facility] Eosinophils 0.1 10*3/uL Normal 0.0-0.5 [facility] Comment on above: Performed By: #### 57997 ####[facility] Eosinophils/100 leukocytes 1.1 % Normal 0.0-6.0 [facility] Comment on above: Performed By: #### 56034 ####[facility] Erythrocyte distribution width Auto Ratio (RBC) 12.6 % Normal 11.5-15.0 [facility] Comment on above: Performed By: #### 79827 ####[facility]3000 [facility].[address] Erythrocytes (RBC) 4.18 10*6/uL Normal 3.80-5.00 [facility] Comment on above: Performed By: #### 32763 ####[facility] Erythrocytes (RBC) 0 % Normal 0-0 [facility] Comment on above: Performed By: #### 12814 ####[facility]3000 [facility].[address] Hematocrit (HCT) 38.3 % Normal 36.0-45.0 [facility] Comment on above: Performed By: #### 07473 ####[facility]3000 [facility].[address] Hemoglobin mass conc (Bld) 12.9 g/dL Normal 12.0-15.0 [facility] Comment on above: Performed By: #### 86953 ####[facility]3000 [facility].[address] IMMATURE GRANS 1.0 % Normal 0.0-1.0 [facility] Comment on above: Performed By: #### 93562 ####[facility] Lymphocytes 1.9 10*3/uL Normal 1.2-4.0 [facility] Comment on above: Performed By: #### 36583 ####[facility]3000 [facility].[address] Lymphocytes/100 leukocytes 18.7 % Low 20.0-45.0 [facility] Comment on above: Performed By: #### 65526 ####[facility]3000 [facility].[address] MCH 30.9 pg Normal 27.0-33.0 [facility] Comment on above: Performed By: #### 99755 ####[facility]3000 [facility].[address] MCHC mass conc (RBC) 33.7 g/dL Normal 32.0-35.0 [facility] Comment on above: Performed By: #### 29057 ####[facility] MCV 91.6 fL Normal 82.0-98.0 [facility] Comment on above: Performed By: #### 25728 ####[facility] [facility] [place] [address], [facility] Monocytes 0.6 10*3/uL Normal 0.1-1.0 [facility] Comment on above: Performed By: #### 11372 ####[facility] [facility] [place] [address], [facility] MONOS 6.0 % Normal 5.0-12.0 [facility] Comment on above: Performed By: #### 38095 ####[facility] [place] [address], [facility] Neutrophils 7.5 10*3/uL Normal 1.6-7.6 [facility] Comment on above: Performed By: #### 63009 ####[facility] Neutrophils/100 leukocytes 72.7 % High 40.0-72.0 [facility] Comment on above: Performed By: #### 52527 ####[facility] [facility] [place] [address], [facility] PLAT CNT 265 10*3/uL Normal 150-400 [facility] Comment on above: Performed By: #### 72464 ####[facility] [place] [address], [facility] WBC (Leukocytes) 10.4 10*3/uL Normal 4.0-10.6 [facility] Comment on above: Performed By: #### 31535 ####[facility] LIPID PROFILEon 09-15-2017 Cholesterol 176 mg/dL Normal 120-200 [facility] Comment on above: Result Comment: CHOLESTEROL REFERENCE RA NGE:20 YEARS AND OLDER CARDIOVASCULAR RISKLess than 200 mg/dl Low Vkex589 to 239 mg/dl Borderline Yxvh204 mg/dl and greater High Risk Performed By: #### 0 0071, 71311, 48325 ####[facility] [place] [address], [facility] Cholesterol to HDL Ratio 3.0 {ratio} Normal .0-4.5 [facility] Comment on above: Performed By: #### 01098, 57422, 11415 # ###[facility] [place] [address], [facility] HDL Cholesterol 59 mg/dL Normal 23-92 [facility] Comment on above: Result Comment: Slight variation in norm al range could be due to gender and/or age.HDL CHOLESTEROL REFERENCE RANGE:20 years and older Cardiovascular Risk> or =60 mg/dL Wfqrciclw20 TO 59 mg/dL Low Risk<40 mg/dL High Risk Performed By: #### 0 0071, 22393, 34335 ####[facility] [facility].[address] LDL Cholesterol 73 mg/dL Normal 0-130 [facility] Comment on above: Result Comment: LDL IS A CALCULATIONLDL IS ONLY VALID IF THE TRIG IS LESS THAN 400. Performed By: #### 0 0071, 81990, 29540 ####[facility] [facility] [place] [address], [facility] NON-HDL CHOLESTEROL 117 mg/dL Normal [facility] Comment on above: Performed By: #### 77843, 99191, 99246 # ###[facility] [facility] [place] [address], [facility] Triglyceride 219 mg/dL High 40-149 [facility] Comment on above: Result Comment: TRIGLYCERIDE REFERENCE R RAAD:20 YEARS AND OLDER CARDIOVASCULAR RISKLESS THAN 150 mg/dl LOW [id number] TO 199 mg/dl BORDERLINE PPWZ243 mg/dl AND GREATER HIGH RISK Performed By: #### 0 0071, 58340, 54635 ####[facility] [place] [address], [facility] VLDL CHOL 44 mg/dL High 0-40 [facility] Comment on above: Performed By: #### 44238, 76307, 55497 # ###[facility] PORTABLE CHEST 1 VIEWon PORTABLE CHEST 1 VIEW [facility] [id number] [place] [address] Patient Name: ARIADNA COPELAND : 1945Sex: FAge: Race: WhiteMRN: [id number]. Location: EMERPatient Status: IVisit #: [id number] Date: 09/15/2017 8:15:00 PMCompleted Date: 09/15/2017 08:23 PMRequesting Provider: MICKEY YU Attending Provider: MICKEY YU Report Copy To: Signs & Symptoms: Chest PainHistory: Patient history not availableComments: R/O PneumoniaExam: PORTABLE CHEST 1 VIEWAccession #: [id number] PORTABLE CHEST 1 VIEW 09/15/2017 8:23 PM [...] findings. Electronically signed by:Neeru Lane. Transcribed by: [email or web address], User Resident: WALKER BARNARDElectronically Signed by: NEERU LANE @ 09/16/2017 10:35 AMI personally read this/these film(s) with this resident Normal [facility] Comment on above: Order Comment: R/O Pneumonia PROTHROMBIN TIMEon 8 INR Coag RelTime (PPP) 1.01 {INR} Normal 0.91-1.16 [facility] Comment on above: Result Comment: ACCCP RECOMMENDED INR FO R WARFARIN THERAPY CONDITION INRPROPHYLAXIS OF VENOUS THROMBOSIS 2-3(HIGH-RISK SURGERY)TREATMENT OF VENOUS THROMBOSIS 2-3TREATMENT OF PULMONARY EMBOLISM 2-3PREVENTION OF SYSTEMIC EMBOLISM: 2-3 ACUTE MYOCARDIAL INFARCTION TISSUE HEART VALVES VALVULAR HEART DISEASE ATRIAL FIBRILLATION RECURRENT SYSTEMIC EMBOLISMMECHANICAL HEART VALVE 2.5-3.5 FROM: ORAL ANTICOAGULANTS. MECHANISM OF ACTION, CLINICALEFFECTIVENESS, AND OPTIMAL THERAPEUTIC RANGE. [id number];108:231S-246S. Performed By: #### 5 2590, 36096, 82217 ####[facility] Prothrombin time (PT) Coag time (PPP) 13.3 s Normal 12.3-14.8 [facility] Comment on above: Result Comment: ALL RESULTS MUST BE INTE RPRETED WITH RESPECT TO BLOOD DRAWING ARTIFACTOR DILUTION ERROR OF ANTICOAGULANT AT THE TIME OF SAMPLING. Performed By: #### 5 7307, 73706, 88981 ####[facility] [facility] [place] [address], [facility] TROPONIN-Ion 09-15-2017 Troponin I.cardiac mass conc 1.87 ng/mL Critically high 0.00-0.04 [facility] Comment on above: Result Comment: M-CRITICAL RESULT(S) REV IEWED, CALLED TO AND READ BACK BY SANTIAGO RAYGOZA RNAT 2124REFERENCE RANGES: 0.00 - 0.04 ng/ml NORMAL 0.05 - 0.50 ng/ml INDETERMINATE > 0.50 ng/ml CONSISTENT WITH AN M.I. Performed By: #### 0 0071, 14129, 43561 ####[facility] [facility] [place] [address], [facility] UFH HEPARIN ASSAYon 09-15-19 18 UNFRACTIONATED HEPARIN <0.10 Critically low 0.30-0.70 [facility] Comment on above: Result Comment: Rivaroxaban and Apixaban will interfere with the anti Xa assay used tomonitor UFH and LMWH.RESULTS CHECKED AND CALLED. ACCURATELY READ BACK BY SANTIAGO STOLL RN @2125 Performed By: #### 5 7307, 13134, 42204 ####[facility]3000 [facility].[address] Vital Signs Date Time Vital Sign Value Performing Clinician Facility 08-24-2024 10:09-0500 Diastolic blood pressure 72 mm[Hg] Andry [facility] 08-24-2024 10:09-0500 Mean blood pressure 97 mm[Hg] Andry [facility] 08-24-2024 10:09-0500 Systolic blood pressure 146 mm[Hg] Andry [facility] 08-24-2024 09:43-0500 Diastolic blood pressure 64 mm[Hg] Andry M[facility] 08-24-2024 09:43-0500 Heart rate 63 /min Andry MCHUGH [facility] 08-24-2024 09:43-0500 Systolic blood pressure 157 mm[Hg] Andry MCHUGH [facility] 06-28-2024 13:53-0500 Body height 162.56 cm [facility] 06-28-2024 13:53-0500 Body mass index (BMI) [Ratio] 24.7 kg/m2 [facility] 06-28-2024 13:53-0500 Body weight 65.43 kg [facility] 06-28-2024 13:53-0500 Diastolic blood pressure 82 mm[Hg] [facility] 06-28-2024 13:53-0500 Heart rate 81 /min [facility] 06-28-2024 13:53-0500 Respiratory rate 12 /min [facility] 06-28-2024 13:53-0500 Systolic blood pressure 163 mm[Hg] [facility] 04-30-2024 11:05-0400 Body height 162.56 cm [facility] 04-30-2024 11:05-0400 Body mass index (BMI) [Ratio] 25.1 kg/m2 [facility] 04-30-2024 11:05-0400 Body weight 66.45 kg [facility] 04-30-2024 11:05-0400 Diastolic blood pressure 72 mm[Hg] [facility] 04-30-2024 11:05-0400 Heart rate 62 /min [facility] 04-30-2024 11:05-0400 Respiratory rate 12 /min [facility] 04-30-2024 11:05-0400 Systolic blood pressure 157 mm[Hg] [facility] 04-21-2024 12:11-0400 Body height 162.56 cm [facility] 04-21-2024 12:11-0400 Body mass index (BMI) [Ratio] 24.9 kg/m2 [facility] 04-21-2024 12:11-0400 Body weight 65.88 kg [facility] 04-21-2024 12:11-0400 Diastolic blood pressure 68 mm[Hg] [facility] 04-21-2024 12:11-0400 Heart rate 76 /min [facility] 04-21-2024 12:11-0400 Respiratory rate 12 /min [facility] 04-21-2024 12:11-0400 Systolic blood pressure 184 mm[Hg] [facility] 04-13-2024 11:02-0400 Body height 162.56 cm [facility] 04-13-2024 11:02-0400 Body mass index (BMI) [Ratio] 25.2 kg/m2 [facility] 04-13-2024 11:02-0400 Body weight 66.73 kg [facility] 04-13-2024 11:02-0400 Diastolic blood pressure 89 mm[Hg] [facility] 04-13-2024 11:02-0400 Heart rate 52 /min [facility] 04-13-2024 11:02-0400 Respiratory rate 12 /min [facility] 04-13-2024 11:02-0400 Systolic blood pressure 139 mm[Hg] [facility] 01-07-2024 10:34-0400 Body height 162.56 cm [facility] 01-07-2024 10:34-0400 Body mass index (BMI) [Ratio] 25.4 kg/m2 [facility] 01-07-2024 10:34-0400 Body weight 67.18 kg [facility] 01-07-2024 10:34-0400 Diastolic blood pressure 62 mm[Hg] [facility] 01-07-2024 10:34-0400 Heart rate 76 /min [facility] 01-07-2024 10:34-0400 Respiratory rate 12 /min [facility] 01-07-2024 10:34-0400 Systolic blood pressure 139 mm[Hg] [facility] 09-02-2023 08:56-0500 Diastolic blood pressure 62 mm[Hg] [facility]ry [facility] 09-02-2023 08:56-0500 Heart rate 72 /min Andry [facility] 09-02-2023 08:56-0500 Systolic blood pressure 136 mm[Hg] Andry MCHUGH [facility] 06-30-2023 09:30-0500 Body height 162.56 cm Ruiz Ball Other [facility] [employer] Other 06-30-2023 09:30-0500 Body mass index (BMI) [Ratio] 24.34 kg/m2 Ruiz Ball Other [employer] Other 06-30-2023 09:30-0500 Body weight 64.32 kg Ruiz Ball Other [employer] Other 06-30-2023 09:30-0500 Diastolic blood pressure 72 mm[Hg] Ruiz Ball Other [employer] Other 06-30-2023 09:30-0500 Respiratory rate 12 /min Ruiz Ball Other [employer] Other 06-30-2023 09:30-0500 Systolic blood pressure 160 mm[Hg] Ruiz Ball Other [employer] Other 03-27-2023 09:00-0400 Body height 162.56 cm Ruiz Ball Other [employer] Other 03-27-2023 09:00-0400 Body mass index (BMI) [Ratio] 25.09 kg/m2 Ruiz Ball Other [employer] Other 03-27-2023 09:00-0400 Body weight 66.32 kg Ruiz Ball Other [employer] Other 03-27-2023 09:00-0400 Diastolic blood pressure 62 mm[Hg] Ruiz Ball Other [employer] Other 03-27-2023 09:00-0400 Respiratory rate 12 /min Ruiz Ball Other [employer] Other 03-27-2023 09:00-0400 Systolic blood pressure 150 mm[Hg] Ruiz Ball Other [employer] Other 02-24-2023 11:30-0400 Body height 162.56 cm Ruiz Ball Other [employer] Other 02-24-2023 11:30-0400 Body mass index (BMI) [Ratio] 25.09 kg/m2 Ruiz Ball Other [employer] Other 02-24-2023 11:30-0400 Body weight 66.32 kg Ruiz Ball Other [employer] Other 02-24-2023 11:30-0400 Diastolic blood pressure 74 mm[Hg] Ruiz Ball Other [employer] Other 02-24-2023 11:30-0400 Respiratory rate 12 /min Ruiz Ball Other [employer] Other 02-24-2023 11:30-0400 Systolic blood pressure 173 mm[Hg] Ruiz Ball Other [employer] Other 12-19-2022 10:00-0400 Body height 162.56 cm Ruiz Ball Other [employer] Other 12-19-2022 10:00-0400 Body mass index (BMI) [Ratio] 25.5 kg/m2 Ruiz Ball Other [employer] Other 12-19-2022 10:00-0400 Body weight 67.4 kg Ruiz Ball Other [employer] Other 12-19-2022 10:00-0400 Diastolic blood pressure 71 mm[Hg] Ruiz Ball Other [employer] Other 12-19-2022 10:00-0400 Respiratory rate 12 /min Ruiz Ball Other [employer] Other 12-19-2022 10:00-0400 Systolic blood pressure 133 mm[Hg] Ruiz Ball Other [employer] Other 09-18-2022 10:00-0500 Body height 162.56 cm Riuz Ball Other [employer] Other 09-18-2022 10:00-0500 Body mass index (BMI) [Ratio] 25.47 kg/m2 Ruiz Ball Other [employer] Other 09-18-2022 10:00-0500 Body weight 67.31 kg Ruiz Ball Other [employer] Other 09-18-2022 10:00-0500 Diastolic blood pressure 70 mm[Hg] Ruiz Ball Other [employer] Other 09-18-2022 10:00-0500 Respiratory rate 12 /min Ruiz Ball Other [employer] Other 09-18-2022 10:00-0500 Systolic blood pressure 130 mm[Hg] Ruiz Ball Other [facility] [employer] Other Encounters Encounter Date Encounter Type Care Provider Facility Start: 10-04-2024 End: 10-04-2024 Bamboo flowsroni Bell DPM Work Phone: [facility] Start: 10-04-2024 End: 10-04-2024 Bamboo flowsheet Cheikh Bell DPM Work Phone: [facility] Start: 10-04-2024 End: 10-04-2024 Patient encounter procedure Cheikh Bell DPM Work Phone: [facility] Comment on above: Onychomycosis (Prima ry Dx); Pain in both feet; Type II diabetes mellitus with neurological manifestations (CMS/HCC) Start: 10-04-2024 End: 10-04-2024 ambulatory CHEIKH BELL Not Available Start: 08-24-2024 End: 08-24-2024 ambulatory Andry MCHUGH Facility:[facility] Start: 08-24-2024 End: 08-24-2024 Patient encounter procedure Andry MCHUGH [facility] Start: 07-27-2024 End: 07-27-2024 Bamboo flowsheet Cheikh Bell DPM Work Phone: [facility] Start: 07-27-2024 End: 07-27-2024 Bamboo flowsheet Cheikh Bell DPM Work Phone: [facility] Start: 07-27-2024 End: 07-27-2024 Patient encounter procedure Cheikh Bell DPM Work Phone: [facility] Comment on above: Onychomycosis (Prima ry Dx); Pain in both feet; Type II diabetes mellitus with neurological manifestations (CMS/HCC) Start: 07-27-2024 End: 07-27-2024 ambulatory CHEIKH BELL Not Available Start: 07-22-2024 End: 07-22-2024 Bamboo flowsheet Sherita Castillo MD Work Phone: [facility] Start: 07-22-2024 End: 07-22-2024 Bamboo flowsheet Sherita Castillo MD Work Phone: [facility] Start: 07-22-2024 End: 07-22-2024 ambulatory SHERITA CASTILLO Not Available Start: 06-28-2024 End: 06-28-2024 ambulatory [facility] Work Phone: Start: 06-28-2024 End: 06-28-2024 Patient encounter procedure [facility] Work Phone: Start: 05-31-2024 End: 05-31-2024 ambulatory [facility] Work Phone: Start: 05-31-2024 End: 05-31-2024 Patient encounter procedure [facility] Work Phone: Start: 05-17-2024 End: 05-17-2024 Bamboo flowsheet Cheikh Bell DPM Work Phone: [facility] Start: 05-17-2024 End: 05-17-2024 Bamboo flowsheet Cheikh Bell DPM Work Phone: [facility] Start: 05-17-2024 End: 05-17-2024 Patient encounter procedure Cheikh Bell DPM Work Phone: [facility] Comment on above: Onychomycosis (Prima ry Dx); Pain in both feet; Type II diabetes mellitus with neurological manifestations (CMS/HCC); Corns and callosities Start: 05-17-2024 End: 05-17-2024 ambulatory CHEIKH BELL Not Available Start: 04-30-2024 End: 04-30-2024 ambulatory [facility] Work Phone: Start: 04-30-2024 End: 04-30-2024 Patient encounter procedure [facility] Work Phone: Start: 04-21-2024 End: 04-21-2024 ambulatory [facility] Work Phone: Start: 04-21-2024 End: 04-21-2024 Patient encounter procedure [facility] Work Phone: Start: 04-21-2024 Non-patient / Non-visit [facility] Work Phone: Start: 04-13-2024 End: 04-13-2024 ambulatory [facility] Work Phone: Start: 04-13-2024 End: 04-13-2024 Patient encounter procedure [facility] Work Phone: Start: 04-10-2024 Patient encounter procedure [facility] Start: 03-04-2024 End: 03-04-2024 ambulatory CHEIKH BELL Not Available Start: 01-07-2024 End: 01-07-2024 ambulatory [facility] Work Phone: Start: 01-07-2024 End: 01-07-2024 Patient encounter procedure [facility] Work Phone: Start: 12-29-2023 End: 12-29-2023 ambulatory CHEIKH BELL Not Available Start: 10-27-2023 End: 10-27-2023 ambulatory CHEIKH BELL Not Available Start: 10-13-2023 Non-patient / Non-visit [facility] Work Phone: Start: 09-15-2023 End: 09-15-2023 ambulatory Ruiz Yee Other [employer] Other Start: 09-15-2023 Telephone encounter Ruiz Yee [facility] Start: 09-02-2023 End: 09-02-2023 ambulatory Andry MCHUGH Facility: [facility] Start: 09-02-2023 End: 09-02-2023 Patient encounter procedure Andry MCHUGH [facility] Start: 07-21-2023 End: 07-21-2023 ambulatory Ruiz Ball Other [employer] Other Start: 07-21-2023 Telephone encounter Ruiz Ball [facility] Start: 06-30-2023 End: 06-30-2023 ambulatory Ruiz Ball Other [employer] Other Start: 06-30-2023 Office outpatient vi sit 25 minutes Ruiz Ball [facility] Start: 06-24-2023 End: 06-24-2023 ambulatory Ruiz Ball Other [employer] Other Start: 06-24-2023 Office outpatient vi sit 15 minutes Ruiz Ball [facility] Start: 03-31-2023 End: 03-31-2023 ambulatory Ruiz Ball Other [employer] Other Start: 03-31-2023 Telephone encounter Ruiz Ball [facility] Start: 03-27-2023 End: 03-27-2023 ambulatory Ruiz Ball Other [employer] Other Start: 03-27-2023 Patient encounter procedure Ruiz Ball [facility] Start: 03-25-2023 End: 03-25-2023 ambulatory Ruiz Ball Other [employer] Other Start: 03-25-2023 Telephone encounter Ruiz Ball [facility] Start: 03-24-2023 End: 03-24-2023 ambulatory Ruiz Ball Other [employer] Other Start: 03-24-2023 Telephone encounter Ruiz Ball [facility] Start: 03-13-2023 End: 03-13-2023 ambulatory Ruiz Ball Other [employer] Other Start: 03-13-2023 Telephone encounter Ruiz Yee [facility] Start: 03-11-2023 End: 03-11-2023 ambulatory Ruiz Yee Other [employer] Other Start: 03-11-2023 Telephone encounter Ruiz Yee [facility] Start: 02-26-2023 End: 02-26-2023 ambulatory Ruiz Yee Other [employer] Other Start: 02-26-2023 Telephone encounter Ruiz Yee [facility] Start: 02-24-2023 End: 02-24-2023 ambulatory Ruiz Yee Other [employer] Other Start: 02-24-2023 Office outpatient vi sit 15 minutes Ruiz Zachariah [facility] Start: 02-24-2023 Telephone encounter Ruiz Yee [facility] Start: 02-10-2023 End: 02-10-2023 Patient encounter procedure Andry Dona MCHUGH [facility] Start: 02-04-2023 End: 02-04-2023 ambulatory Ruiz Yee Other [employer] Other Start: 02-04-2023 Telephone encounter Ruiz Yee [facility] Start: 01-28-2023 End: 01-28-2023 ambulatory Ruiz Yee Other [employer] Other Start: 01-28-2023 Telephone encounter Ruiz Yee [facility] Start: 12-19-2022 End: 12-19-2022 ambulatory Ruiz Yee Other [employer] Other Start: 12-19-2022 Office outpatient vi sit 25 minutes Ruiz Yee [facility] Start: 11-11-2022 End: 11-12-[address] RUIZ YEE Facility:[facility] Start: 10-15-2022 End: 10-15-2022 ambulatory Ruiz Yee Other [employer] Other Start: 10-15-2022 Office outpatient vi sit 15 minutes Ruiz Yee [facility] Start: 09-18-2022 End: 09-18-2022 ambulatory Ruiz Yee Other [employer] Other Start: 09-18-2022 Office outpatient vi sit 25 minutes Ruiz Yee [facility] Start: 03-20-2022 End: 03-21-[address] RUIZ YEE Facility:[facility] Start: 03-07-2022 Adult health examination Janak kirsten Yee Other [employer] Other Start: 02-27-2022 End: 02-27-[address] RUIZ YEE Facility:[facility] Start: 01-11-[address] RUIZ YEE Facili ty:[facility] Start: 01-05-2022 End: 01-07-[address] KAILEE STRONG . Facility:[facility] Start: 12-26-2021 End: 12-26-[address] ISHAN LYON . Facility:[facility] Start: 12-25-2021 End: 12-25-[address] RUIZ YEE Facility:[facility] Start: 12-16-2017 End: 12-17-2017 Ambulatory DEFAULT PHYSICIAN Facility:[facility] Start: 09-15-2017 End: 09-18-2017 Evaluation and management of inpatient REFERRED SELF Facility:[facility] Procedures Date Procedure Procedure Detail Performing Clinician Start: 07-22-2024 End: 07-22-2024 [facility] medical xm&eval comprhnsv estab pt 1/> Type [...] Yee Other Start: 11-22-2015 Screening mammography B ensegundo Yee Other Screening for malign ant neoplasm of breast Ruiz Yee Other Screening for malign ant neoplasm of breast Ruiz Yee Other Plan of Treatment Date Care Activity Detail Author Start: 12-07-2024 End: 12-07-2024 Patient encounter procedure 12/07/2024 10:00 AM EDT Procedure Visit [facility] [address] [place] [id number] Cheikh Bell DPM [address] [place] [address] [facility] Start: 10-04-2024 End: 10-04-2024 Patient encounter procedure [facility] Comment on above: Arrived Start: 07-27-2024 End: 07-27-2024 Patient encounter procedure [facility] Comment on above: Arrived Start: 07-22-2024 End: 07-22-2024 Patient encounter procedure 07/22/2024 10:30 AM EST Office Visit [facility] [address] [place] [id number] Sherita Castillo MD [address] [place], [place] [id number] Arrived [facility] Comment on above: Arrived Start: 05-17-2024 End: 05-17-2024 Patient encounter procedure 05/17/2024 10:00 AM EDT Procedure Visit [facility] [address] [place] [address] Cheikh Bell DPM [address] [place] [address] Arrived [facility] Comment on above: Arrived Start: 04-11-2024 Influenza vaccination Influenza Vacc ine (#1) [facility] Start: 11-06-2015 Pneumococcal Vaccine : 65+ Years (2 of 2 - PPSV23 or PCV20) Pneumococcal Vaccine: 65+ Years (2 of 2 - PPSV23 or PCV20) [facility] Comprehensive metabo lic 2000 panel - Serum or Plasma [facility] MG Breast - bilatera l Screening [facility] Microalbumin [Mass/volume] in Urine [facility] US Thyroid gland [facility] Immunizations Immunization Date Immunization Notes Care Provider Fa cili 05-31-2024 influenza virus vaccine, unspecified formulation Andry MCHUGH [facility] 05-31-2024 influenza, high dose seasonal, preservative-free [facility] 06-30-2023 influenza virus vaccine, unspecified formulation [facility] 06-30-2023 influenza, high dose seasonal, preservative-free Ruiz Ball Other better[employer] [facility] [employer] Other 08-11-2022 influenza virus vaccine, unspecified formulation Andry MCHUGH [facility] 07-08-2022 SARS-CoV-2 (COVID-19 ) [id number] Andry MCHUGH [facility] 05-08-2022 influenza virus vaccine, unspecified formulation [facility] 05-08-2022 influenza, high dose seasonal, preservative-free Ruiz Ball Other [employer] Other 05-06-2022 influenza virus vaccine, split virus (incl. purified surface antigen) Ruiz Yee Other [employer] Other 05-06-2022 influenza virus vaccine, unspecified formulation [employer] [facility] 07-02-2021 SARS-CoV-2 (COVID-19 ) mRNA BNT-162b2 vax Andry [employer] [facility] 04-27-2021 influenza virus vaccine, split virus (incl. purified surface antigen) Ruiz Yee Other better. [facility] [employer] Other 04-27-2021 influenza virus vaccine, unspecified formulation [facility] 09-28-2020 SARS-CoV-2 (COVID-19 ) mRNA BNT-162b2 vax Andry [employer] [facility] Comment on above: Result Comment: 2023: [id number] 09-07-2020 SARS-CoV-2 (COVID-19 ) mRNA BNT-162b2 vax Andry [employer] [facility] Comment on above: Result Comment: 2023: [id number] 05-04-2020 influenza virus vaccine, split virus (incl. purified surface antigen) Ruiz Yee Other better[facility] [employer] Other 05-04-2020 influenza virus vaccine, unspecified formulation [facility] 04-30-2019 influenza virus vaccine, unspecified formulation [employer] [facility] 04-24-2018 influenza virus vaccine, split virus (incl. purified surface antigen) Ruiz Yee Other [employer] Other 04-24-2018 influenza virus vaccine, unspecified formulation [employer] [facility] 04-17-2017 influenza virus vaccine, split virus (incl. purified surface antigen) Ruiz Yee Other better. [facility] [employer] Other 04-17-2017 influenza virus vaccine, unspecified formulation Andry MCHUGH [employer] [facility] 05-10-2016 influenza virus vaccine, split virus (incl. purified surface antigen) Ruiz Yee Other [employer] Other 05-10-2016 influenza virus vaccine, unspecified formulation Andry [facility] 06-13-2015 tetanus and diphther ia toxoids, adsorbed, preservative free, for adult use (5 Lf of tetanus toxoid and 2 Lf of diphtheria toxoid) Ruiz Zachariah Other [facility] 03-28-2015 pneumococcal conjuga te vaccine, 13 valent Ruiz Yee Other [facility] 03-28-2015 pneumococcal Conjuga te, unspecified formulation; Translations: [Need for prophylactic vaccination against Streptococcus pneumoniae (pneumococcus)] Ruiz Zachariah Other [facility] [employer] Other 11-05-2014 pneumococcal conjuga te vaccine, 13 valent Andry MCHUGH [employer] [facility] 06-07-2014 influenza virus vaccine, split virus (incl. purified surface antigen) Ruiz Zachariah Other [facility] [employer] Other 06-07-2014 influenza virus vaccine, unspecified formulation [facility] 06-07-2013 tetanus and diphther ia toxoids, adsorbed, preservative free, for adult use (5 Lf of tetanus toxoid and 2 Lf of diphtheria toxoid) Ruiz Yee Other [facility] 05-24-2009 pneumococcal polysaccharide vaccine, 23 valent Ruiz Yee Other [facility] Payers Date Payer Category Payer Private Health Insurance THRIVEN T [id number] 2016 Unknown 2008 Medicare [id number] 1959 Medicare [id number] 1959 Unknown [id number] [id number] 1943 Unknown [id number] 2.16.840.1.421402.3.579 .2.593 1943 Unknown [id number] 2.16.840.1.911247.3.579 .2.593 1943 Unknown [id number] 2.16.840.1.475859.3.579 .2.593 1943 Unknown [id number] 2.16.840.1.737633.3.579 .2.593 1943 Unknown [id number] 2.16.840.1.776805.3.579 .2.593 1943 Unknown [id number] 2.16.840.1.863477.3.579 .2.593 1943 Unknown [id number] 2.16.840.1.811959.3.579 .2.593 1943 Unknown [id number] 2.16.840.1.457909.3.579 .2.727 1943 Unknown [id number] 2.16.840.1.813203.3.579 .2.727 1943 Unknown [id number] 2.16.840.1.918300.3.579 .2.1259 1943 Unknown [id number] 2.16.840.1.593626.3.579 .2.1259 1943 Unknown [id number] 2.16.840.1.291176.3.579 .2.1259 1943 Unknown [id number] 2.16.840.1.064188.3.579 .2.1259 1943 Unknown [id number] 2.16.840.1.362636.3.579 .2.1259 1943 Unknown [id number] 2.16.840.1.154117.3.579 .2.1259 1943 Unknown [id number] 2.16.840.1.852875.3.579 .2.1259 Medicare [id number] Social History Date Type Detail Facility Start: 03-04-2024 End: 07-27-2024 Sex Assigned At [facility] Tobacco smoking status No Smokin g Status Entered [facility] Start: 04-10-2023 End: 10-02-2023 Tobacco smoking status NHIS Never smoked tobacco (finding) [facility] Start: 1945 Sex Assigned At Female F [facility] Start: 04-10-2023 Tobacco use and exposure Smokeless tobacco non-user [facility] Start: 03-04-2024 End: 07-27-2024 Alcoholic beverage intake Lifetime non-drinker (finding) [facility] Start: 03-04-2024 End: 07-27-2024 History of Social function [facility] Start: 08-25-2023 Alcohol Comment caffeine intak e:1-2 cups per day [facility] Start: 1945 Sex assigned at Not on file [facility] Start: 06-28-2024 Sex Female (finding) [facility] Medical Equipment Procedure Code Equipment Code Equipment Origin al Text Equipment Identifier Dates USE 1 STRIP TO C HECK GLUCOSE ONCE DAILY Start: 03-31-2023 Functional Status Date Assessment Result Facility 08-24-2024 Functional Status N/A [facility] 09-02-2023 Functional Status N/A [facility] 02-10-2023 Functional Status N/A [facility] Clinical Notes 09-18-2022 to 10-04-2024 Cheikh Bell DPM - 10/04/2024 10:00 AM Skip Bell DPM - 07/27/2024 10:00 AM Antelmo Castillo MD - 07/22/2024 10:30 AM Skip Bell DPM - 05/17/2024 10:00 AM EDT Note Date & Type Note Facility 10-04-2024 History of Present illness Narrative Images from the original note [...] FOOT EXAM: Date of Last Foot Exam 09/17/24 Vascular: DORSALIS PEDIS PULSE: 1/4, bilaterally. POSTERIOR [...] from the overgrowth of the toenails. CPT 88996 documented in this encounter [facility] 08-24-2024 Hospital Discharge instructions Patient Education 08/24/2024 10:13:38 Dietary Guidelines to Help Prevent Kidney Stones [...] about 300 mg of calcium at each meal. Foods that contain 200 500 mg of calcium a serving include: ?8 oz (237 mL) of milk, ipxqjyc-bvsdatocmszp-cmbbt milk, and calcium-fortifiedfruit juice. Calcium-fortified means that calcium has been [...] the table and allow each person to add their own salt to taste. Use vegetable protein, such as beans, textured vegetable protein (TVP), or tofu, instead of meat in pasta, casseroles, and soups. Meal planning Eat less salt, if told by your dietitian. To do this: ?Avoid eating processed or pre-made food. ?Avoid eating fast food. Eat less animal protein, including cheese, meat, poultry, or fish, if told by your dietitian. To do this: ?Limit the number of times you have meat, poultry, fish, or cheese each week. Eat a diet free of meat at least 2 days a week. ?Eat only one serving each day of meat, poultry, fish, or seafood. ?When you prepare animal proteins, cut pieces into small portion sizes. For most meat and fish, one serving is about the size of the palm [...] ?Spinach (cooked), rhubarb, beets, sweet potatoes, and Citizen Of [place] chard. ?Peanuts. ?Potato chips, somali fries, and baked potatoes with skin on. ?Nuts and nut products. ?Chocolate. If you regularly take a diuretic medicine, make sure to eat at least 1 or 2 servings of fruits or vegetables that are high in potassium each day. These include: ?Avocado. ?Banana. ?[place]ickley, prune, carrot, or tomato juice. ?Baked potato. [...] magnesium, fish oil, or vitamin B6. Take cuym-gpu-fjwipvz and prescription medicines only as told by [...] Casseroles. Pizza. Lasagna. Frozen meals. Potato chips. Tuvaluan fries. The items listed above may not be a complete list of foods and beverages you should limit. Contact a dietitian for more information. What foods should I avoid? Talk to your dietitian about specific foods you should avoid based on the type of kidney stones you have and your overall health. Fruits Grapefruit. The item listed above may not be a complete list of foods and beverages you should avoid. Contact a dietitian for more information. Summary Kidney stones are [...] provider. Document Revised: 11/07/2022 Document Reviewed: 11/07/2022 [employer] Patient Education 2023 [email or web address]. Follow Up Care 09/02/2023 09:43:32 With:JEISON HEARN, Andry Carcamo, URL Address: [facility] [employer] [address] [place], [place] [address]- When: Unknown [facility] 08-24-2024 Note Patient Education Nephrology Dietary Guidelines to Help Prevent Kidney Stones [...] for following this plan? Reading food labels ??? Choose foods with no salt added or low-salt labels. Limit your salt (sodium) intake to less than 1,500 mg a day. ??? Choose foods with calcium for each meal and snack. Try to eat about 300 mg of calcium at each meal. Foods that contain 200?500 mg of calcium a serving include: ? 8 oz (237 mL) of milk, wkuyovg-fpevlxqlnnuy-vdery milk, and calcium-fortifiedfruit juice. Calcium-fortified means that calcium has been added to these drinks. ? 8 oz (237 mL) of kefir, yogurt, and soy yogurt. ? 4 oz (114 g) of tofu. ? 1 oz (28 g) of cheese. ? 1 cup (150 g) of dried figs. ? 1 cup (91 g) of cooked broccoli. ? One 3 oz (85 g) can of sardines or mackerel. Most people need 1,000?1,500 mg of calcium a day. Talk to your dietitian about how much calcium is recommended for you. Shopping ??? Buy plenty of fresh fruits and vegetables. Most people do not need to avoid fruits and vegetables, even if these foods contain nutrients that may contribute to kidney stones. ??? When shopping for convenience foods, choose: ? Whole pieces of fruit. ? Pre-made salads with dressing on the side. ? Low-fat fruit and yogurt smoothies. ??? Avoid buying frozen meals or prepared deli foods. These can be high in sodium. ??? Look for foods with live cultures, such as yogurt and kefir. ??? Choose high-fiber grains, such as whole-wheat breads, oat bran, and wheat cereals. Cooking ??? Do not add salt to food when cooking. Place a salt shaker on the table and allow each person to add their own salt to taste. ??? Use vegetable protein, such as beans, textured vegetable protein (TVP), or tofu, instead of meat in pasta, casseroles, and soups. Meal planning ??? Eat less salt, if told by your dietitian. To do this: ? Avoid eating processed or pre-made food. ? Avoid eating fast food. ??? Eat less animal protein, including cheese, meat, poultry, or fish, if told by your dietitian. To do this: ? Limit the number of times you have meat, poultry, fish, or cheese each week. Eat a diet free of meat at least 2 days a week. ? Eat only one serving each day of meat, poultry, fish, or seafood. ? When you prepare animal proteins, cut pieces into small portion sizes. For most meat and fish, one serving is about the size of the palm of your hand. ??? Eat at least five servings of fresh fruits and vegetables each day. To do this: ? Keep fruits and vegetables on hand for snacks. ? Eat one piece of fruit or a handful of berries with breakfast. ? Have a salad and fruit at lunch. ? Have two kinds of vegetables at dinner. ??? You may be told to limit foods that are high in a substance called oxalate. These include: ? Spinach (cooked), rhubarb, beets, sweet potatoes, and [place] chard. ? Peanuts. ? Potato chips, somali fries, and baked potatoes with skin on. ? Nuts and nut products. ? Chocolate. ??? If you regularly take a diuretic medicine, make sure to eat at least 1 or 2 servings of fruits or vegetables that are high in potassium each day. These include: ? Avocado. ? Banana. ? [place]ickley, prune, carrot, or tomato juice. ? Baked potato. ? Cabbage. ? Beans and split peas. Lifestyle ??? Drink enough fluid to keep your urine pale yellow. This is the most important thing you can do. Spread your fluid intake throughout the day. ??? If you drink alcohol: ? Limit how much you have to: ? 0?1 drink a day for women who are not . ? 0?2 drinks a day for men. ? Know how much alcohol is in your drink. In the [place] one drink equals one 12 oz bottle of beer (355 mL), one 5 oz glass of wine (148 mL), or one 1? oz glass of hard liquor (44 mL). ??? Lose weight if told by your health care provider. Work with your dietitian to find an eating plan and weight loss strategies that work best for you. General information ??? Talk to your health care provider and dietitian about taking daily supplements. Depending on your health and the cause of your kidney stones, you may be told: ? Do not take high-dose supplements of vitamin C (1,000 mg a day or more). ? To take a calcium supplement. ? To take a daily probiotic supplement. ? To take other supplements such as magnesium, fish oil, or vitamin B6. ??? Take dffy-zkj-bcpytft and prescription medicines only as told by your health (more content not included)... [facility] 07-27-2024 History of Present illness Narrative Images from the original note [...] from the overgrowth of the toenails. CPT 31158 documented in this encounter [facility] 07-22-2024 History of Present illness Narrative Assessment/Plan Diabetes Mellitus without sign of diabetic retinopathy on dilated retinal examination today OU: Discussed the pathophysiology of diabetes and its effect on the eye. Stressed the importance of strong glucose control. Advised of importance of at least yearly dilated examinations, but to contact us immediately for any problems or concerns. documented in this encounter [facility] 05-17-2024 History of Present illness Narrative Images from the original note [...] excess pressure over the callous site. CPT 71966, 67911 documented in this encounter [facility] 04-13-2024 Evaluation note Diagnosis Onset Date Resolution [...] diabetes mellitus with hyperglycemia acute April 10:56am [facility] Work Phone: [phone]) 722-459402-05-2024 Evaluation note* Encounter Date Diagnosis Assessment Notes Treatment Notes Treatment Clinical Notes Sep, Primary hypertension (ICD-10 - I10) Sep, ASHD (arteriosclerotic heart disease) (ICD-10 - I25.10) Sep, Autoimmune thyroiditis (ICD-10 - E06.3) Sep, Hyperlipidemia type II (ICD-10 - E78.01) Sep, Controlled type 2 diabetes mellitus with hyperglycemia, without long-term current use of insulin (ICD-10 - E11.65) [employer] Other 01-23-2024 Hospital Discharge instructions Patient Education [...] include: ?8 oz (237 mL) of milk, dadfvoh-mgxcdyourslt-kalgw milk, and calcium- fortifiedfruit juice. Calcium-fortified means [...] ?Spinach (cooked), rhubarb, beets, sweet potatoes, and [place] chard. ?Peanuts. ?Potato chips, somali fries, and baked potatoes with skin on. ?Nuts and nut products. ?Chocolate. If you regularly take a diuretic medicine, make sure to eat at least 1 or 2 servings of fruits or vegetables that are high in potassium each day. These include: ?Avocado. ?Banana. ?Shickley, prune, carrot, or tomato juice. ?Baked potato. [...] magnesium, fish oil, or vitamin B6. Take jpmw-wfl-wgiconl and prescription medicines only as told by [...] Casseroles. Pizza. Lasagna. Frozen meals. Potato chips. [place] fries. The items listed above may not [...] provider. Document Revised: 11/07/2022 Document Reviewed: 11/07/2022 [employer] Patient Education 2022 [email or web address]. Follow Up Care 06/30/2023 13:02:17 With:JEISON HEARN, Andry Carcamo, URL Address: [facility] [employer] [address] [place], [place] [id number]- When:Within 1 Year(s) Comments:w/DANIAL [facility] [place] [phone] Evaluation note* Encounter Date Diagnosis Assessment Notes [...] Jun, COVID-19 (ICD-10 - U07.1) asymptomatic, day 810 and still contagious, wearing mask. Self isolate [...] or drinking prior to bedtime. Weight loss. [employer] Other 11-14-2023 Evaluation note* Encounter Date Diagnosis [...] and at increased risk for prolonged illness [employer] Other 08-21-2023 Evaluation note* Encounter Date Diagnosis Assessment Notes Treatment Notes Treatment Clinical Notes Mar, Controlled type 2 diabetes mellitus with hyperglycemia, without long-term current use of insulin (ICD-10 - E11.65) [employer] Other 08-17-2023 Evaluation note* Encounter Date Diagnosis [...] Instructed on monthly SBE and yearly mammogram [employer] Other 07-17-2023 Evaluation note* Encounter Date Diagnosis Assessment Notes Treatment Notes Treatment Clinical Notes Feb, Superficial abscess of perineum (ICD-10 - L02.215) Warm soaks daily Keep area clean and dry Begin antibiotics. REcheck in 5 days Feb, Controlled type 2 diabetes mellitus with hyperglycemia, without long-term current use of insulin (ICD-10 - E11.65) INcreases risk for prolonged, serious infection. [employer] Other 07-03-2023 Hospital Discharge instructions Patient Education 02/10/2023 14:32:39 [...] Care 01/22/2023 09:52:05 With:Andry MCHUGH Address: [address] [phone]- Business (1) When:6 months Comments:Call for followup appointment in about six months with an abdominal X- ray prior to your visit (my office needs to send an order for this study)I will get records from the [facility] to see what the CAT scan demonstrated in terms of whether or not you have more stones in your kidneys. This may change the follow-up date depending on findings.Have a great day! [facility]06-27-[facility]23 Evaluation note* Encounter Date Diagnosis Assessment [...] High risk medication use (ICD-10 - Z79.899) [employer] Other 05-11-2023 Evaluation note* Encounter Date Diagnosis [...] mammogram for breast cancer (ICD-10 - Z12.31) [employer] Other 03-07-2023 Evaluation note* Encounter Date Diagnosis [...] to continue exercise and AHA diet plan. [employer] Other 02-08-2023 Evaluation note* Encounter Date Diagnosis [...] - E06.3) Euthyroid, TSH yearly w/ MWE [employer] Other Evaluation + Plan note No data available for this section [facility]ments Appointment Date:08/24/2024 09:45:00 AM Scheduled Provider:Andry MCHUGH MD Location:[facility] Appointment Type:URO Office Visit [facility] Evaluation noteNo InformationNort [employer] Other Evaluation note* Diagnosis Onset Date Resolution Status ASHD (arteriosclerotic heart disease) acute Gastroesophageal reflux dise ase with esophagitis without hemorrhage acute Hyperlipidemia type II acute Hypothyroid acute Primary hypertension acute Type 2 diabetes mellitus with hyperglycemia acute [facility] Work Phone: Evaluation note* Diagnosis Onset Date Resolution Status ASHD (arteriosclerotic heart disease) acute Gastroesophageal reflux dise ase with esophagitis without hemorrhage acute Hypercholesterolemia acute Hypothyroid acute Medicare annual wellness visit, subsequent acute Primary hypertension acute Screening mammogram for breast cancer acute Thyroid nodule acute Type 2 diabetes mellitus with hyperglycemia acute [facility] Work Phone: Evaluation note* Diagnosis Onset Date Resolution Status ASHD [...] Type 2 diabetes mellitus with hyperglycemia acute [facility] Work Phone: Evaluation note* Diagnosis Onychomycosis- Primary Dermatophytosis of nail Pain in both feet Type II diabetes mellitus with neurological manifestations (CMS/HCC) Type II or unspecified type diabetes mellitus with neurological manifestations, not stated as uncontrolled Corns and callosities [facility] Diagnosis Type 2 diabetes mellitus without complication, with long-term current use of insulin (CMS/HCC)- Primary Pseudophakia Lens replaced by other means [facility] Diagnosis Onychomycosis- Primary Dermatophytosis of nail Pain in both feet Type II diabetes mellitus with neurological manifestations (CMS/HCC) Type II or unspecified type diabetes mellitus with neurological manifestations, not stated as uncontrolled [facility] - Reported* Type Description Date [...] HX 2001 Hospitalization History SEE SURGICAL HX [employer] Other History general Narrative - Reported* Type Description Date [...] placement 01/2023 Hospitalization History SEE SURGICAL HX [employer] Other Progress note No data available for this section [facility] Summary Purpose Family History No Family History Records FoundNo Family History Records Found No data available for this section No data available for this section No Family History Records FoundNo Family History Records Found Advance Directives No [...] 10:22am Screening mammogram for breast cancer Se ptember 2023 10:22am Thyroid nodule April 13, 2024 10:22am [...] and content) DATE CREATED AUTHOR 01/29/2018 [facility] DATE CREATED AUTHOR AUTHOR'S ORGANIZ ATION 11/16/2022 [facility] DATE CREATED AUTHOR AUTHOR'S ORGANIZ ATION 08/27/2024 [facility] DATE CREATED AUTHOR AUTHOR'S ORGANIZ ATION 10/05/[address] [facility] REASON FOR VISIT (unrecogniz ed section and content) Reason Comments Eye Exam Diabetic Eye Exam Patient Care team informatio n (unrecognized section and content) Team Status: Active Member Role Status Dates Ruiz Yee , DO Primary Care Provider Active Team Status: Inactive Member Role Status Dates Ruiz Yee , DO Primary Care Provide r, Attending Provider Active Start: April 13, 2024 End: April 13, 2024 Team Status: Active Member Role Status Dates Ruiz Yee , DO Primary Care Provide r, Attending Provider Active Start: October 13, 2023 Team Status: Inactive Member Role Status Dates Ruiz Yee , DO Primary Care Provide r, Attending Provider Active Start: January 07, 2024 End: January 07, 2024 Team Status: Active Member Role Status Dates Ruiz Yee DO Primary Care Provide r, Attending Provider Active Start: April 21, 2024 Team Status: Inactive Member Role Status Dates Ruiz Yee , DO Primary Care Provide r, Attending Provider Active Start: April 21, 2024 End: April 21, 2024 Team Status: Inactive Member Role Status Dates Ruiz Yee DO Primary Care Provide r, Attending Provider Active Start: April 30, 2024 End: April 30, 2024 Director Of Cath Lab Relationship Specialty Start Date End Date Ruiz Yee MD [address] [place] [phone] PCP - General Internal Medicine 04/10/23 Director Of Cath Lab Relationship Specialty Start Date End Date Ruiz Yee MD [address] [place] [phone] PCP - General Internal Medicine 04/10/23 Team Status: Inactive Member Role Status Dates Ruiz Yee DO Primary Care Provide r, Attending Provider Active Start: May 31, 2024 End: May 31, 2024 Team Status: Inactive Member Role Status Dates Ruiz Yee DO Primary Care Provide r, Attending Provider Active Start: June 28, 2024 End: June 28, 2024 Director Of Cath Lab Relationship Specialty Start Date End Date Ruiz Yee MD [address] [place] [phone] PCP - General Internal Medicine 04/10/23 Director Of Cath Lab Relationship Specialty Start Date End Date Ruiz Yee MD [address] [place] [address] PCP - General Internal Medicine 04/10/23 Director Of Cath Lab Relationship Specialty Start Date End Date Ruiz Yee MD [address] [place] [phone] PCP - General Internal Medicine 04/10/23 Director Of Cath Lab Relationship Specialty Start Date End Date Ruiz Yee MD [address] [place] [phone] PCP - General Internal Medicine [...] BE BASED ON THE PRIMARY CLINICAL RECORDS. Present [facility]. provides no warranty or guarantee of the accuracy or completeness of information in this document.
[2024-10-25 13:08] LABS: Estimated Average Glucose 157 mg/dL; Glycohemoglobin A1C 7.1 % (4.5-6.2)
== END 2024-10-25 12:10 | disposition home or self-care (01) ==
LOC: LAB 12:10
PROVIDERS: PCP Internal Medicine; Visit Provider Internal Medicine
DX: E11.65 Type 2 diabetes mellitus with hyperglycemia (principal)
CPT/HCPCS: 36415; 83036

== ENCOUNTER 2025-05-20 08:17 | Outpatient (OUT) | payer MEDICARE, OTHER, SELFPAY ==
--- OUTSIDE RECORDS SUMMARY | 2025-05-20 08:20 | XMS_ITS | CCD ---
Author Organization [facility] Care Team Providers Care Development Geologist Name Role Phone SELF, REFERRED Unavailable Unavailable ZACHARIAH, RUIZ Unavailable Unavailable JACKI LIRA Unavailable Unavailable MARI KRUNAL Unavailable Unavailable [place] Unavailable Unavailable MICKI BRO Unavailable Unavailable [place] Unavailable Unavailable CLYDE LIRAR Delia Unavailable Unavailable PHYSICIAN, DEFAULT Unavailable Unavailable PHYSICIAN, [...] Consulting Unavailable RUIZ YEE Primary Care Physician [phone] Ruiz Yee MD Primary Care Provider Andry MCHUGH Attending Unavailable Andry MCHUGH Attending Unavailable Ruiz Yee MD Primary Care Provider Ruiz Yee DO Primary Care Provider Ruiz Yee DO Attending Provider Ruiz Yee DO Primary Care Provider Jennifer Garza APRN Attending Provider CHEIKH BELL Attending Unavailable CHEIKH BELL Attending Unavailable SHERITA CASTILLO Attending Unavailable CHEIKH BELL Attending Unavailable CHEIKH BELL Attending Unavailable CHEIKH BELL Attending Unavailable Allergies Allergy Classification Reported Allergen(s) Allergy Type Date of Onset Reaction(s) Facility (3 sources) amoxicillin; Translations: [amoxicillin] Drug Allergy 12-07-19 14 [facility] Repository (3 sources) amoxicillin / clavulanate; Translations: [Augmentin] Drug Allergy 02-21-20 13 [facility] Repository (3 sources) codeine; Translations: [codeine] Drug Allergy 02-21-20 13 [facility] Repository (2 sources) desonide Drug Allergy 12-07-19 14 [facility] Repository (12 sources) fexofenadine Drug Allergy 09-15-19 18 [facility] Repository (16 sources) loratadine; Translations: [Claritin] Drug Allergy 02-21-20 13 Unknown [facility] Repository (3 sources) naproxen; Translations: [Naprosyn] Drug Allergy 12-07-19 14 [facility] Repository (2 sources) NSAIDs Drug allergy (disorder) 02-14-20 13 [facility] Repository (3 sources) omeprazole; Translations: [PriLOSEC] Drug Allergy 02-21-20 13 [facility] Repository (12 sources) oxyCODONE Drug Allergy 02-21-20 13 [facility] Repository (20 sources) fexofenadine; Translations: [Beckie] Drug Allergy 12-07-19 14 Unknown (qualifier value) [facility] Repository (18 sources) Loratadine; Translations: [loratadine] Drug Allergy 01-07-20 24 Unknown (qualifier value) [facility] (20 sources) oxyCODONE Drug Allergy 06-28-20 24 Unknown [employer] Other (10 sources) Substance with penicillin structure and antibacterial mechanism of action (substance) Drug allergy Unknown [employer] Other (18 sources) PCN-200 Propensity to adverse reactions Unknown [employer] Other (2 sources) Bacitracin / Neomycin / Polymyxin B; Translations: [Neosporin] Drug Allergy 02-21-20 13 [facility] Repository (4 sources) Adhesive Tape; Translations: [Tape] Allergy to substance unknown [facility] (3 sources) Amoxicillin; Translations: [amoxicillin] Drug Allergy Unknown (qualifier value) [facility] (3 sources) Amoxicillin / Clavulanate; Translations: [amoxicillin-clav ulanate] Drug Allergy Unknown (qualifier value) [facility] (3 sources) bacitracin / neomycin / polymyxin b; Translations: [bacitracin/neomy abisai/polymyxin B topical] Drug Allergy Redness [facility] (14 sources) Codeine; Translations: [codeine] Drug Allergy 07-22-20 24 Unknown (qualifier value) [facility] (18 sources) Ibuprofen; Translations: [ibuprofen] Drug Allergy 04-10-20 23 Unknown (qualifier value) [facility] (20 sources) Naproxen; Translations: [naproxen] Drug Allergy 04-10-20 23 Unknown (qualifier value), Other, Unknown [facility] (14 sources) Non-steroidal anti-inflammatory agent; Translations: [NSAIDs] Drug allergy 06-28-20 24 Unknown [facility] Comment on above: swelling of lips (14 sources) Omeprazole; Translations: [omeprazole] Drug Allergy 07-22-20 24 Unknown (qualifier value) [facility] (10 sources) Acetaminophen / oxyCODONE Drug Allergy oxyCODONE-Acet aminophen [employer] Other (10 sources) Non-steroidal anti-inflammatory agent Drug allergy Unknown [employer] [facility] Other (10 sources) Penicillin Drug Allergy Unknown [employer] Other (2 sources) Beckie Allergy Drug allergy Unknown [employer] [facility] [employer] Other (2 sources) patient allergy list reviewed by nurse or physicia Propensity to adverse reactions 04-02-20 Comment:Done [employer] Other (10 sources) Claritin-D 12 Hour Drug allergy Unknown [facility] [employer] Other (20 sources) Penicillins Allergy to substance 01-07-20 [facility] (10 sources) NSAIDS (Non-Steroidal Anti-Inflamma Allergy to substance 01-07-20 [facility] (11 sources) Bacitracin / Polymyxin B Drug Allergy 07-22-20 [facility] (11 sources) fexofenadine Drug Allergy 06-28-20 Unknown [facility] (11 sources) Loratadine Allergy to substance 06-28-20 [facility] (11 sources) Amoxicillin-Pot Clavulanate Drug Allergy 07-22-20 [facility] Work Phone: (11 sources) Wound Dressing Adhesive Drug Allergy 07-22-20 [facility] (1 source) Naproxen; Translations: [Aleve] Drug Allergy [facility] Repository (1 source) NSAIDs; Translations: [NSAIDs] Propensity to adverse reactions (disorder) [facility] Repository Medications Current Medications Medication Drug Class(es) Dates Sig (Normalized) Sig (Original) Aspirin (17 sources) Platelet Aggregation Inhibitor, Nonsteroidal Anti-inflammatory Drug Start: 02-10-2023 aspirin 81 mg, Refills(s) 0 Start Date: 02/10/23 Status: Ordered take 1 tablet by mouth once tasha y aspirin 81 MG chewable tablet Chew 1 tablet every day by oral route. Active atorvastatin 40 mg oral tablet (20 sources) HMG-CoA Reductase Inhibitor Start: 02-10-2023 End: 08-23-2024 take 1 tablet by mouth in the morning atorvastatin (Lipitor) 40 MG tablet Take 1 tablet by mouth in the morning. 02/10/2023 Active azithromycin 250 mg oral tablet (20 sources) Macrolide Antimicrobial Start: 10-15-2022 End: 02-21-2025 azithromycin (Zithromax) 250 MG tablet TAKE 2 TABLETS BY MOUTH ON DAY 1, AND THEN TAKE 1 TABLET BY MOUTH ONCE A DAY ON DAY 2 THROUGH DAY 5 10/15/2022 Active Start: 10-15-2022 Azithromycin 2 50 MG as directed Orally daily for 5 days Oct, Not-Taking/PRN cholecalciferol 0.025 mg oral capsule (14 sources) Vitamin D take 1 capsule by [...] t - as directed In Vitro Active erythromycin 0.005 mg/mg ophthalmic ointment (14 sources) Macrolide, Macrolide Antimicrobial Start: 05-23-2022 erythromycin (Romycin) 5 MG/GM ophthalmic ointment APPLY A THIN LAYER INTO LEFT EYE ONE A DAY 05/23/2022 Active hydroCHLOROthiazide 12.5 mg / lisinopril 10 mg oral tablet (20 sources) Thiazide Diuretic, Angiotensin Converting Enzyme Inhibitor Start: 10-02-2023 End: 08-23-2024 take 1 tablet by mouth once daily Lisinopril-Hydroc hlorothiazide 10-12.5 mg tablet Active 1 TAB PO Daily 90 August 23, 2024 1:55pm Complies with drug therapy Start: 02-10-2023 hydrochlorothi azide-lisinopril Refill(s) 0 Start Date: 02/10/23 Status: Ordered Start: 02-10-2023 LISINOPRIL-HYD ROCHLOROTHIAZIDE PO Refill(s) 0 02/10/2023 Active levoFLOXacin 750 mg oral tablet (14 sources) Quinolone Antimicrobial Start: 01-18-2023 take 1 tablet by mouth once daily levoFLOXacin (Levaquin) 750 MG tablet TAKE 1 TABLET BY MOUTH ONCE DAILY FOR 7 DAYS 01/18/2023 Active 24 hr metoprolol succinate 25 mg extended release oral tablet (20 sources) beta-Adrenergic Renard Start: 02-10-2023 End: 08-23-2024 take 1 tablet by mouth once daily metoprolol succinate XL (Toprol-XL) 25 MG 24 hr tablet Take 1 tablet every day by oral route for 30 days. 02/10/2023 Active metroNIDAZOLE 500 mg oral tablet (20 sources) Nitroimidazole Antimicrobial Start: 02-24-2023 metroNIDAZOLE (Flagyl) 500 MG tablet 02/24/2023 Active mupirocin 0.02 mg/mg topical ointment (20 sources) RNA Synthetase Inhibitor Antibacterial Start: 04-13-2024 mupirocin (Bactroban) 2 % ointment 04/13/2024 Active Start: 04-13-2024 Mupirocin 2 % ointment Active 1 APPLIC TOPICAL Twice daily 01 06April 13, 2024 12:00am Complies with drug therapy ondansetron 4 mg disintegrating oral tablet (14 sources) Serotonin-3 Receptor Antagonist Start: 01-18-2023 take 1 tablet by mouth once daily as needed for nausea and vomiting ondansetron ODT (Zofran-ODT) 4 MG disintegrating tablet DISSOLVE 1 TABLET IN MOUTH ONCE DAILY NEEDED FOR NAUSEA AND VOMITING FOR 4 DAYS 01/18/2023 Active pantoprazole 40 mg delayed release oral tablet (14 sources) Proton Pump Inhibitor take 1 tablet [...] Active tamsulosin hydrochloride 0.4 mg oral capsule (14 sources) alpha-Adrenergic Renard Start: 01-18-2023 take 1 capsule by mouth every twenty-four hours in the morning tamsulosin (Flomax) 0.4 MG 24 hr capsule Take 0.4 mg by mouth in the morning. 01/18/2023 Active triamcinolone acetonide 1 mg/ml topical cream (14 sources) Corticosteroid triamcinolone (Kenalog) 0.1 % cream [...] afterwards, # 2 tab(s), Refills(s) 0, Pharmacy: [facility] 01/22/2023 Active doxycycline monohydrate 100 mg oral tablet (20 sources) Tetracycline-class Drug Start: 02-21-2025 End: 03-07-2025 take 1 tablet by mouth twice daily Doxycycline Monohydrate 100 mg tablet Discontinued 100 MG PO Twice daily 30 05February 21, 2025 12:00am March 07, 2025 10:36am Start: 04-30-2024 End: 10-25-2024 doxycycline (Vibramycin) 100 MG capsule Once 06/28/2024 Active Start: 04-13-2024 End: 04-30-2024 take 1 capsule by mouth twice daily Doxycycline Hyclate 100 mg capsule Discontinued 100 MG PO Twice daily 30 05April 21, 2024 12:31pm April 30, 2024 11:17am levothyroxine sodium 0.075 mg oral tablet (20 sources) l-Thyroxine Start: 02-10-2023 levothyroxine 75 mcg (0.075 mg) Tab Refills(s) 0 Start Date: 02/10/23 Status: Ordered Start: 02-10-2023 End: 08-23-2024 take 1 tablet by mouth once daily levothyroxine (Synthroid, Levoxyl) 75 MCG tablet Take 1 tablet every day by oral route for 90 days. 02/10/2023 Active metFORMIN hydrochloride 500 mg oral tablet (20 sources) Biguanide Start: 10-02-2023 End: 08-23-2024 take 1 tablet by mouth twice daily Metformin 500 mg tablet Discontinued 500 MG PO Twice daily 180 90 December 02, 2023 12:44pm August 23, 2024 1:56pm Start: 02-10-2023 metformin 500 mg, Refills(s) 0 Start Date: 02/10/23 Status: Ordered take 1 tablet by hubert th every twenty-four hours metFORMIN HCl 500 MG 1 tablet with a meal Orally Once a day for 90 days Active Suprep Bowel Prep . 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, antibodies, or inhibitors] 02-14-2025 Chronic Congestive heart failure; nonhypertensive (1 source) Unspecified systolic (congestive) heart failure; Translations: [UNSPECIFIED SYSTOLIC (CONGESTIVE) HEART FAILURE] Onset: 09-15-2017 Chronic Coronary atherosclerosis and other heart disease (20 sources) Coronary arteriosclerosis; Translations: [Atherosclerotic heart disease of [place] coronary artery without angina pectoris] Onset: 09-25-2017 [...] (2 sources) Seizure 09-02-2023 Episodic Esophageal disorders (20 sources) Gastro-esophageal reflux disease with esophagitis; Translations: [...] 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 Mycoses (6 sources) Onychomycosis; Translations: [Tinea unguium] 05-17-2024 Episodic Nutritional deficiencies (4 sources) Vitamin D deficiency; Translations: [Vitamin D deficiency, unspecified] Onset: 11-22-2014 Chronic Open wounds of extremities (13 sources) Laceration of lower limb; Translations: [Laceration without foreign body, right lower leg, initial encounter] 04-21-2024 Episodic Osteoarthritis (20 sources) Arthritis of joint of left shoulder region; Translations: [Primary osteoarthritis, left shoulder] Onset: 12-25-2017 Chronic Other aftercare (2 sources) Other termite control technician (current) drug therapy; Translations: [OTH STRIPER SPRAY GUN CURRENT DRUG THERAPY] Onset: 03-22-2022 Episodic Other aftercare (4 sources) Long-term current use of drug therapy; Translations: [Other care home (current) drug therapy] Episodic Other and ill-defined [...] respiratory systems] Episodic Other connective tissue disease (6 sources) Pain in both feet; Translations: [Pain [...] callosities] 05-17-2024 Episodic Other upper respiratory infections (2 sources) Maxillary sinusitis; Translations: [Chronic maxillary sinusitis] 02-21-2025 Chronic Other upper respiratory infections (20 sources) Acute [...] reasons] Episodic Skin and subcutaneous tissue infections (14 sources) Cutaneous abscess of perineum; Translations: [Cellulitis of leg, excluding foot] Episodic Systemic lupus erythematosus and connective tissue disorders (2 sources) Autoimmune disease; Translations: [Autoimmune disease, not elsewhere classified] Onset: 08-11-1961 Chronic Thyroid disorders (20 sources) Hypothyroidism, unspecified; 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] Onset: 09-15-2017 Chronic Comment on above: US: right 1.2cm 04/2024 Unclassified (2 sources) Unknown / UNK(Unknown) Onset: [...] Onset: 11-22-2014 Episodic Other aftercare (1 source) terminal clerk (current) use of aspirin; Translations: [CORRECTION CURRENT USE OF ASPIRIN] Onset: 01-10-2022 Episodic Other aftercare (1 source) terminal clerk (current) use of oral hypoglycemic drugs; Translations: [STRIPER SPRAY GUN USE ORAL HYPOGLYCEMIC DX] Onset: 01-10-2022 Episodic [...] 08-24-2024 Ambulatory Visit Summary Ambulatory Visit Summary ARIADNA COPELAND :1945 Visit Date:08/24/2024 Ambulatory Visit Instructions Your [...] you for choosing us for your care. Lilian [facility] Reminderson 08-24-2024 Reminders Reminders From: Norah Dawson To: EU - Administrative; Sent: 08/24/2024 11:00:57 EST Show up: 11/07/2025 11:00:00 EDT Subject: 18 MO KUB Due Date/Time: 02/20/2026 11:00:00 EDT Reminder/Recall SCHEDULE W/ MADDI IN 18 MO AND KUB Normal [facility] Urology Office/Clinic Noteon 08-24-2024 Urology Office/Clinic Note Urology Office/Clinic Note Chief Complaint 1 yr F/U w/KUB HPI Staff 1 year follow up w/KUB Previous DX: kidney stone, ureteral stone w/hydronephrosis S/P cysto/LT RG/holmium laser/basket/stent done on 01/17/23, cysto/LT stent removal done on 02/10/23. kub done at [place] yesterday Dysuria: denies Incomplete bladder emptying: denies [...] and history for this patient from Dr. cMhugh. I have reviewed and verified the staff [...] (N20.0: Calculus of kidney) Urology consult at [facility] 01/17/23 due to L flank pain. CT [...] With When Contact Information JEISON HEARN, Andry P, URL [address] [place] [phone] Additional Instructions: 18 mos with KUB (not [...] with voice recognition artificial intelligence software, specifically [employer], [employer] and or [employer]. Substitutions may have occurred due to the [...] virus vaccine, inactivated 2022 Recorded SARS-CoV-2 (COVID-19) [id number] 07/08/2022 Recorded influenza virus va (more content not included)... Normal [facility] Comment on above: Result Comment: Electronically Signed By : Andry MCHUGH MD P\.br\Date and Time Signed: 08/24/24 10:29 EST\.br\Electronically Co-Signed By: Vicky Barth P\.br\Date and Time Co-Signed: 08/24/24 10:22 EST\.br\Electronically Co-Signed By: Vicky Barth P\.br\Date and Time Co-Signed: 08/24/24 10:23 EST\.br\Electronically Co-Signed By: Vicky Barth P\.br\Date and Time Co-Signed: 08/24/24 10:26 EST Basophils Auto (Bld) [#/Vol] on 04-21-2024 Basophils (Bld) [#/Vol] 0.1 10 3/uL 0.0-0.1 [facility] Basophils (Bld) [#/Vol] Automated basophil count 0.0-0.1 [facility] Basophils/100 WBC Auto (Bld) on 04-21-2024 Basophils/100 WBC (Bld) 0.7 % 0.2-2.0 [facility] Basophils/100 WBC (Bld) Automated basophil % 0.2-2.0 [facility] Cholesterol in LDL Calc [Mas s/Vol]on 04-21-2024 Cholesterol in LDL [Mass/Vol] 38.0 mg/dL [facility] Comment on above: <100 mg/dl [id number] mg/dl NEAR OR ABOVE [id number] mg/dl BORDERLINE [id number] mg/dl HIGH>190 mg/dl VERY HIGH Cholesterol in LDL [Mass/Vol] Cholesterol in LDL [Mass/volume] in Serum or Plasma by calculation [facility] Comment on above: <100 mg/dl [id number] mg/dl NEAR OR ABOVE [id number] mg/dl BORDERLINE [id number] mg/dl HIGH>190 mg/dl VERY HIGH Cholesterol in VLDL Calc [Ma ss/Vol]on 04-21-2024 Cholesterol in VLDL [Mass/Vol] 22.4 mg/dL [facility] Cholesterol in VLDL [Mass/Vol] Cholesterol in VLDL [Mass/volume] in Serum or Plasma by calculation [facility] Eosinophils/100 WBC Auto (Bl d)on 04-21-2024 Eosinophils/100 WBC (Bld) 8.1 % High 0.9-7.0 [facility] Eosinophils/100 WBC (Bld) Automated eosinophil % High 0.9-7.0 [facility] Erythrocyte distribution wid th Auto (RBC) [Ratio]on 04-21-2024 Erythrocyte distribution width (RBC) [Ratio] 12.8 % 11.0-15.0 [facility] Erythrocyte distribution width (RBC) [Ratio] Erythrocyte distribution width [Ratio] by Automated count 11.0-15.0 [facility] Estimated glomerular filtrat ion rate (GFR) non- Americanon 04-21-2024 GFR/1.73 sq M.predicted among non-blacks MDRD (S/P/Bld) [Vol rate/Area] mL/min/{1.73_m2} >=60 [facility] GFR/1.73 sq M.predicted among non-blacks MDRD (S/P/Bld) [Vol rate/Area] Estimated glomerular filtration rate (GFR) non- >=60 [facility] Globulin Calc (S) [Mass/Vol] on 04-21-2024 Globulin (S) [Mass/Vol] 3.3 g/dL [facility] Globulin (S) [Mass/Vol] Serum globulin measurement by calculation (mass/volume) [facility] Glucose mean value [Mass/vol ume] in Blood Estimated from glycated hemoglobinon 04-21-2024 Average glucose Estimated from glycated hemoglobin (Bld) [Mass/Vol] 151 mg/dL [facility] Average glucose Estimated from glycated hemoglobin (Bld) [Mass/Vol] Glucose mean value [Mass/volume] in Blood Estimated from glycated hemoglobin [facility] Hematocrit Auto (Bld) [Volum e fraction]on 04-21-2024 Hematocrit (Bld) [Volume fraction] 39.9 % 36.0-48.0 [facility] Hematocrit (Bld) [Volume fraction] Hematocrit [Volume Fraction] of Blood by Automated count 36.0-48.0 [facility] Hemoglobin [Mass/volume] in Bloodon 04-21-2024 Hemoglobin (Bld) [Mass/Vol] 13.0 g/dL 12.0-16.0 [facility] Hemoglobin (Bld) [Mass/Vol] Hemoglobin [Mass/volume] in Blood 12.0-16.0 [facility] Laboratory - Chemistry and C hemistry - challengeon 04-21-2024 Albumin [Mass/Vol] 3.9 g/dL 3.4-5.0 [facility] ALP [Catalytic activity/Vol] 75 U/L 46-116 [facility] ALT [Catalytic activity/Vol] 22 U/L 14-59 [facility] AST [Catalytic activity/Vol] 16 U/L 15-37 [facility] Bilirubin [Mass/Vol] 0.8 mg/dL 0.2-1.0 [facility] Calcium [Mass/Vol] 9.6 mg/dL 8.5-10.1 [facility] Chloride [Moles/Vol] 102 mmol/L 98-107 [facility] Cholesterol [Mass/Vol] 136 mg/dL <=200 [facility] Cholesterol in HDL [Mass/Vol] 76 mg/dL High 40-60 [facility] Comment on above: > or =60 mg/dl - LOW CARDIOVASCULAR RISK <40 mg/dl - HIGH CARDIOVASCULAR RISK CO2 [Moles/Vol] 30.5 mmol/L 21.0-32.0 [facility] Creatinine [Mass/Vol] 0.86 mg/dL 0.55-1.02 [facility] GFR/1.73 sq M.predicted MDRD (S/P/Bld) [Vol rate/Area] mL/min/{1.73_m2} >=60 [facility] Glucose [Mass/Vol] 146 mg/dL High 74-106 [facility] Potassium [Moles/Vol] 3.5 mmol/L 3.5-5.1 [facility] Protein [Mass/Vol] 7.2 g/dL 6.4-8.2 [facility] Sodium [Moles/Vol] 142 mmol/L 136-145 [facility] Triglyceride [Mass/Vol] 112 mg/dL <=150 [facility] TSH Qn 0.505 m[IU]/L 0.358-3.740 [facility] Urea nitrogen [Mass/Vol] 22.0 mg/dL High 7.0-18.0 [facility] Urea nitrogen/Creatin ine [Mass ratio] 25.6 mg/mg [facility] Laboratory - Hematology and Cell countson 04-21-2024 HbA1c (Bld) [Mass fraction] 6.9 % High 4.5-6.2 [facility] Comment on above: ADA RECOMMENDED LIMIT 4.0 - 6.0ADA THERA PEUTIC TARGET < 7.0ACTION SUGGESTED> 7.0 Immature granulocytes/100 WBC (Bld) 0.7 % High 0.0-0.5 [facility] Leukocytes [#/volume] correc keenan for nucleated erythrocytes in Blood by Automated counon 04-21-2024 WBC corrected for nucl RBC Auto (Bld) [#/Vol] 8.6 10 3/uL 4.0-11.0 [facility] WBC corrected for nucl RBC Auto (Bld) [#/Vol] Leukocytes [#/volume] corrected for nucleated erythrocytes in Blood by Automated coun 4.0-11.0 [facility] Lymphocytes Auto (Bld) [#/Vo l]on 04-21-2024 Lymphocytes (Bld) [#/Vol] 3.1 10 3/uL 1.2-3.8 [facility] Lymphocytes (Bld) [#/Vol] Lymphocytes [#/volume] in Blood by Automated count 1.2-3.8 [facility] Lymphocytes/100 WBC Auto (Bl d)on 04-21-2024 Lymphocytes/100 WBC (Bld) 36.2 % 20.5-60.0 [facility] Lymphocytes/100 WBC (Bld) Lymphocytes/100 leukocytes in Blood by Automated count 20.5-60.0 [facility] MCH Auto (RBC) [Entitic mass ]on 04-21-2024 MCH (RBC) [Entitic mass] 30.8 pg 26.7-34.0 [facility] MCH (RBC) [Entitic mass] MCH [Entitic mass] by Automated count 26.7-34.0 [facility] MCHC Auto (RBC) [Mass/Vol]on 04-21-2024 MCHC (RBC) [Mass/Vol] 32.6 g/dL 29.9-35.2 [facility] MCHC (RBC) [Mass/Vol] MCHC [Mass/volume] by Automated count 29.9-35.2 [facility] MCV Auto (RBC) [Entitic vol] on 04-21-2024 MCV (RBC) [Entitic vol] 94.5 fL 81.0-99.0 [facility] MCV (RBC) [Entitic vol] MCV [Entitic volume] by Automated count 81.0-99.0 [facility] Microalbumin [Mass/volume] i n Urineon 04-21-2024 Albumin DL <= 20 mg/L (U) [Mass/Vol] 4.6 mg/dL <=30.0 [facility] Albumin DL <= 20 mg/L (U) [Mass/Vol] Microalbumin [Mass/volume] in Urine <=30.0 [facility] Monocytes Auto (Bld) [#/Vol] on 04-21-2024 Monocytes (Bld) [#/Vol] 0.6 10 3/uL 0.3-0.8 [facility] Monocytes (Bld) [#/Vol] Automated blood monocyte count 0.3-0.8 [facility] Monocytes/100 WBC Auto (Bld) on 04-21-2024 Monocytes/100 WBC (Bld) 7.0 % 1.7-12.0 [facility] Monocytes/100 WBC (Bld) Automated monocyte % 1.7-12.0 [facility] Neutrophils Auto (Bld) [#/Vo l]on 04-21-2024 Neutrophils (Bld) [#/Vol] 4.1 10 3/uL 1.4-6.5 [facility] Neutrophils (Bld) [#/Vol] Neutrophils [#/volume] in Blood by Automated count 1.4-6.5 [facility] Neutrophils/100 WBC Auto (Bl d)on 04-21-2024 Neutrophils/100 WBC (Bld) 47.3 % 43.0-75.0 [facility] Neutrophils/100 WBC (Bld) Automated neutrophil % 43.0-75.0 [facility] No Panel Informationon 04-21 Eosinophils # (Auto) 0.7 10 3/uL 0.0-0.7 [facility] Immature Granulocyte # (Auto) 0.06 10 3/uL High 0.00-0.03 [facility] Platelet mean volume Auto (B ld) [Entitic vol]on 04-21-2024 Platelet mean volume (Bld) [Entitic vol] 11.0 fL 9.5-13.5 [facility] Platelet mean volume (Bld) [Entitic vol] Platelet mean volume [Entitic volume] in Blood by Automated count 9.5-13.5 [facility] Platelets Auto (Bld) [#/Vol] on 04-21-2024 Platelets (Bld) [#/Vol] 287 10 3/uL 150-450 [facility] Platelets (Bld) [#/Vol] Platelets [#/volume] in Blood by Automated count 150-450 [facility] RBC Auto (Bld) [#/Vol]on RBC (Bld) [#/Vol] 4.22 10 6/uL 4.20-5.40 [facility] RBC (Bld) [#/Vol] Erythrocytes [#/volume] in Blood by Automated count 4.20-5.40 [facility] Serum or plasma albumin/glob ulin mass ratioon 04-21-2024 Albumin/Globulin [Mass ratio] 1.2 {ratio} [facility] Albumin/Globulin [Mass ratio] Serum or plasma albumin/globulin mass ratio [facility] Serum or plasma anion gap de terminationon 04-21-2024 Anion gap [Moles/Vol] 13.0 mmol/L [facility] Anion gap [Moles/Vol] Serum or plasma anion gap determination [facility] Serum or plasma total choles terol/high density lipoprotein (HDL) cholesterol mass jaida 04-21-2024 Cholesterol.tota l/Cholesterol in HDL [Mass ratio] 1.8 {ratio} [facility] Comment on above: 3.3 - 4.4 LOW RISK4.4 - 7.1 AVERAGE RISK 7.1 - 11.0 MODERATE RISK>11.0 HIGH RISK Cholesterol.tota l/Cholesterol in HDL [Mass ratio] Serum or plasma total cholesterol/high density lipoprotein (HDL) cholesterol mass rat [facility] Comment on above: 3.3 - 4.4 LOW RISK4.4 - 7.1 AVERAGE RISK 7.1 - 11.0 MODERATE RISK>11.0 HIGH RISK Glucose mean value [Mass/vol ume] in Blood Estimated from glycated hemoglobinon 10-13-2023 Average glucose Estimated from glycated hemoglobin (Bld) [Mass/Vol] 154 mg/dL [facility] Laboratory - Hematology and Cell countson 10-13-2023 HbA1c (Bld) [Mass fraction] 7.0 % 4.5-6.2 [facility] Comment on above: ADA RECOMMENDED LIMIT 4.0 - 6.0ADA THERA PEUTIC TARGET < 7.0ACTION SUGGESTED> 7.0 Formson 09-03-2023 Forms [id number] Normal [facility] Ambulatory Visit Summaryon 09-02-2023 Ambulatory Visit Summary ARIADNA COPELAND :1945 Visit Date:09/02/2023 Ambulatory Visit Instructions Your Diagnosis Ureteral calculus Flank pain Personal history of kidney stones Tests Performed Urnls Dip Stick Auto w/o Microscopy POC 58567 XR Abdomen 1 View -- Results Pending [...] Andry MCHUGH MD Where: [facility] Patient Educationon 09-02-19 24 Patient Education Nephrology Dietary Guidelines to Help [...] ? 8 oz (237 mL) of milk, nkxatcb-hmibnfwsyfdt-dqrxd milk, and calcium-fortifiedfruit juice. Calcium-fortified means that [...] Spinach (cooked), rhubarb, beets, sweet potatoes, and Salvadorean chard. ? Peanuts. ? Potato chips, luxembourger fries, and baked potatoes with skin on. ? Nuts and nut products. ? Chocolate. ? If you regularly take a diuretic medicine, make sure to eat at least 1 or 2 servings of fruits or vegetables that are high in potassium each day. These include: ? Avocado. ? Banana. ? Hunter, prune, carrot, or tomato juice. ? Baked [...] fish oil, or vitamin B6. ? Take sxbk-tjf-vvzgfrw and prescription medicines only as told by your health care provider. These include supplements. What foods sh (more content not included)... Normal [facility] Urology Office/Clinic Noteon 09-02-2023 Urology Office/Clinic Note Chief Complaint Follow up to TB w/ DANIAL HPI Staff Ariadna is a 78 y.o. female new patient here for 6 month follow up w/ KUB. Pt was seen for urology consult @ [facility] on 01/17/23 for left sided flank pain. [...] Pt was seen for urology consult @ [facility] on 01/17/23 for left sided flank pain. CT scan done on 01/17/23 showed 7mm stone in the left lower ureter. S/P cysto/LT RG/holmium laser/basket/stent done on 01/17/23, Stone Analysis - CaOx Mcculloch 80% and CaOx Dihy 20% S/p cysto/LT [...] with KUB Follow-up With When Contact Information JEISON HEARN, Andry Carcamo, URL In [address] [place] [id number] Additional Instructions: w/KUB Patient Education Dietary Guidelines [...] with voice recognition artificial intelligence software, specifically [employer], [employer] and or Info (more content not included)... Normal [facility] Comment on above: Result Comment: Electronically Signed By : Andry MCHUGH MD\.br\Date and Time Signed: 09/02/23 09:43 EST\.br\Electronically Co-Signed By: Desi Liu\.br\Date and Time Co-Signed: 09/02/23 09:41 EST GLYCOHEMOGLOBIN A1Con 2022 ADA RECOMMENDATION SEE BELOW Normal [facility] Comment on above: Result Comment: ADA RECOMMENDED LIMIT 4. 0 - 6.0 ADA THERAPEUTIC TARGET < 7.0 ACTION SUGGESTED > 7.0 Performed By: #### A 1C #### [facility] [address] [place] [address] Dr. Sam Balderrama Glucose [Mass/Vol] 154 mg/dL Normal [facility] Comment on above: Performed By: #### A1C #### [facility] [address] [address] [address] Sam Balderrama HbA1c (Bld) [Mass fraction] 7.0 % Critically high 4.5-6.2 [facility] Comment on above: Performed By: #### A1C #### [facility] [address] [address] [address] Sam Balderrama MICROALBUMIN URINEon 022 Albumin, Urine 42.4 ug/mL Normal Not Estab. [facility] Comment on above: Performed By: #### MALBLC #### [facility] [address] [address] [address] Sam Balderrama CBC AUTO DIFFon 03-20-2022 BASO # 0.1 103/ul Normal 0.0-0.1 [facility] Comment on above: Performed By: #### A1C #### [facility] [address] [address] [address] Sam Balderrama Basophils/100 WBC (Bld) 1.0 % Normal 0.2-2.0 [facility] Comment on above: Performed By: #### A1C #### [facility] [address] [address] [address] Sam Balderrama EO # 0.5 103/ul Normal 0.0-0.7 [facility] Comment on above: Performed By: #### A1C #### [facility] [address] [place] [address] Dr. Sam Balderrama Eosinophils/100 WBC (Bld) 6.4 % Normal 0.9-7.0 [facility] Comment on above: Performed By: #### A1C #### [facility] [address] [address] [address] Sam Balderrama Erythrocyte distribution width (RBC) [Ratio] 12.5 % Normal 11.0-15.0 [facility] Comment on above: Performed By: #### A1C #### [facility] [address] [place] [address] Dr. Sam Balderrama Hematocrit (Bld) [Volume fraction] 40.6 % Normal 36.0-48.0 [facility] Comment on above: Performed By: #### A1C #### [facility] [address] [address] [address] Sam Balderrama Hemoglobin (Bld) [Mass/Vol] 13.1 g/dL Normal 12.0-16.0 [facility] Comment on above: Performed By: #### A1C #### [facility] [address] [address] [address] Sam Balderrama IG # 0.04 10e3/ul Critically high 0.00-0.03 [facility] Comment on above: Performed By: #### A1C #### [facility] [address] [place] [address] Dr. Sam Balderrama IG % 0.5 % Normal 0.0-0.5 [facility] Comment on above: Performed By: #### A1C #### [facility] [address] [place] [address] Dr. Sam Balderrama LYMPH # 2.8 103/ul Normal 1.2-3.8 [facility] Comment on above: Performed By: #### A1C #### [facility] [address] [place] [address] Dr. Sam Balderrama Lymphocytes/100 WBC (Bld) 38.7 % Normal 20.5-60.0 [facility] Comment on above: Performed By: #### A1C #### [facility] [address] [place] [address] Dr. Sam Balderrama MANUAL DIFF REQ NO Normal [facility] Comment on above: Performed By: #### A1C #### [facility] [address] [place] [address] Dr. Sam Balderrama MCH (RBC) [Entitic mass] 30.6 pg Normal 26.7-34.0 [facility] Comment on above: Performed By: #### A1C #### [facility] [address] [place] [address] Dr. Sam Balderrama MCHC (RBC) [Mass/Vol] 32.3 g/dL Normal 29.9-35.2 [facility] Comment on above: Performed By: #### A1C #### [facility] [address] [place] [address] Dr. Sam Balderrama MCV (RBC) [Entitic vol] 94.9 fL Normal 81.0-99.0 [facility] Comment on above: Performed By: #### A1C #### [facility] [address] [place] [address] Dr. Sam Balderrama MONO # 0.6 103/ul Normal 0.3-0.8 [facility] Comment on above: Performed By: #### A1C #### [facility] [address] [place] [address] Dr. Sam Balderrama Monocytes/100 WBC (Bld) 8.4 % Normal 1.7-12.0 [facility] Comment on above: Performed By: #### A1C #### [facility] [address] [place] [address] Dr. Sam Balderrama NEUT # 3.3 103/ul Normal 1.4-6.5 [facility] Comment on above: Performed By: #### A1C #### [facility] [address] [place] [address] Dr. Sam Balderrama Neutrophils/100 WBC (Bld) 45.0 % Normal 43.0-75.0 [facility] Comment on above: Performed By: #### A1C #### [facility] [address] [place] [address] Dr. Sam Balderrama Platelet mean volume (Bld) [Entitic vol] 10.4 fL Normal 9.5-13.5 [facility] Comment on above: Performed By: #### A1C #### [facility] [address] [place] [address] Dr. Sam Balderrama PLT 257 103/ul Normal 150-450 [facility] Comment on above: Performed By: #### A1C #### [facility] [address] [place] [address] Dr. Sam Balderrama RBC 4.28 106/ul Normal 4.20-5.40 [facility] Comment on above: Performed By: #### A1C #### [facility] [address] [place] [address] Dr. Sam Balderrama WBC 7.3 103/ul Normal 4.0-11.0 [facility] Comment on above: Performed By: #### A1C #### [facility] [address] [place] [address] Dr. Sam Balderrama GLYCOHEMOGLOBIN A1Con 2021 ADA RECOMMENDATION SEE BELOW Normal [facility] Comment on above: Result Comment: ADA RECOMMENDED LIMIT 4. 0 - 6.0 ADA THERAPEUTIC TARGET < 7.0 ACTION SUGGESTED > 7.0 Performed By: #### B NETWORK FIREWALL ENGINEER, CMP, LIPA #### [facility] [address] [place] [address] Dr. Sam Balderrama Glucose [Mass/Vol] 169 mg/dL Normal [facility] Comment on above: Performed By: #### BNP, CMP, LIPA #### [facility] [address] [address] [address] Sam Balderrama HbA1c (Bld) [Mass fraction] 7.5 % Critically high 4.5-6.2 [facility] Comment on above: Performed By: #### BNP, CMP, LIPA #### [facility] [address] [address] [address] Sam Balderrama LIPID PROFILEon 03-20-2022 CHOL-HDL RATIO NORM SEE BELOW Normal [facility] Comment on above: Result Comment: 3.3 - 4.4 LOW RISK 4.4 - 7.1 AVERAGE RISK 7.1 - 11.0 MODERATE RISK >11.0 HIGH RISK Performed By: #### C VDTBH #### [facility] [address] [address] [address] Sam Balderrama Cholesterol [Mass/Vol] 124 mg/dL Normal <=200 [facility] Comment on above: Performed By: #### CVDTBH #### [facility] [address] [address] [address] Sam Balderrama Cholesterol in HDL [Mass/Vol] 59 mg/dL Normal 40-60 [facility] Comment on above: Performed By: #### CVDTBH #### [facility] [address] [address] [address] Sam Balderrama Cholesterol in LDL [Mass/Vol] 47.2 mg/dL Normal [facility] Comment on above: Performed By: #### CVDTBH #### [facility] [address] [address] [address] Sam Balderrama Cholesterol.tota l/Cholesterol in HDL [Mass ratio] 2.1 {ratio} Normal [facility] Comment on above: Performed By: #### CVDTBH #### [facility] [address] [address] [address] Sam Balderrama HDL NORMAL > or = 60 mg/dl - LO W CARDIOVASCULAR RISK <40 mg/dl - HIGH CARDIOVASCULAR RISK Normal [facility] Comment on above: Performed By: #### CVDTBH #### [facility] [address] [address] [address] Sam Balderrama LDL CALC NORMAL SEE BELOW Normal [facility] Comment on above: Result Comment: <100 mg/dl OPTIMAL 100 - 129 mg/dl NEAR OR ABOVE OPTIMAL 130 - 159 mg/dl BORDERLINE HIGH 160 - 189 mg/dl HIGH >190 mg/dl VERY HIGH Performed By: #### C VDTBH #### [facility] [address] [address] [address] Sam Balderrama Triglyceride [Mass/Vol] 89 mg/dL Normal <=150 [facility] Comment on above: Performed By: #### CVDTBH #### [facility] [address] [address] [address] Sam Balderrama VLDL CALC 17.8 mg/dL Normal [facility] Comment on above: Performed By: #### CVDTBH #### [facility] [address] [address] [address] Sam Balderrama MG MAMM SCREEN 3D YAZMIN CADon 03-20-2022 MG MAMM SCREEN 3D YAZMIN CAD Patient: ARIADNA COPELAND Exam Date: 03/20/2022 : 1945 Gender:F Ordering : DR RUIZ YEE D.O. Admission #: [id number] Family : Order #: [id number] CLICK HERE TO VIEW EXAM RADIOLOGY REPORT [...] breast cancer at age 78. LOCATION: [facility] BREAST COMPOSITION: Scattered areas fibroglandular density. [...] Herrera MD on 03/20/2022 at 12:[address] [facility] SGPTon 03-20-2022 ALT [Catalytic activity/Vol] 26 U/L Normal 14-59 [facility] Comment on above: Performed By: #### CVDTBH #### [facility] [address] [place] [address] Dr. Sam Balderrama TSHon 03-20-2022 TSH 0.381 uIU/mL Normal 0.358-3.740 [facility] Comment on above: Performed By: #### CVDTBH #### [facility] [address] [place] [address] Dr. Sam Balderrama XR DEXA BONE DENSITYon 03-20 XR DEXA BONE DENSITY DEXA Bone Density Study CLINICAL: Evaluate bone mineral density. This menopausal COMPARISON: None FINDINGS: The bone density study was assessed by dual-energy x-ray absorptiometry with the [employer] scanner. The test results are expressed in [...] RICHARD HANNA Date: 2022-03-20 08:49 Normal [facility] Covid-19 PCR (CVDTB)on 02-09 SARS-CoV-2 (COVID-19) RNA MANNY+probe Ql (Unsp spec) Not detected Normal NOT DETECTED [facility] Comment on above: Result Comment: This test is not yet jose roved or cleared by the [place] FDA. When there are no FDA-approved or cleared tests available, and other criteria are met, FDA can make tests available under an emergency access mechanism called an Emergency Use Authorization (EUA). The EUA for this test is supported by the Multimedia Editor of Health and Human Service's (HHS's) declaration [...] SARS-CoV-2. Performed By: #### C VDTBH #### [facility] [address] [place] [address] Dr. Sam Balderrama CBC AUTO DIFFon 01-07-2022 BASO # 0.1 103/ul Normal 0.0-0.1 [facility] Comment on above: Performed By: #### CBC #### [facility] [address] [place] [address] Dr. Sam Balderrama Basophils/100 WBC (Bld) 0.6 % Normal 0.2-2.0 [facility] Comment on above: Performed By: #### CBC #### [facility] [address] [place] [address] Dr. Sam Balderrama EO # 0.2 103/ul Normal 0.0-0.7 [facility] Comment on above: Performed By: #### CBC #### [facility] [address] [place] [address] Dr. Sam Balderrama Eosinophils/100 WBC (Bld) 2.7 % Normal 0.9-7.0 [facility] Comment on above: Performed By: #### CBC #### [facility] [address] [place] [address] Dr. Sam Balderrama Erythrocyte distribution width (RBC) [Ratio] 12.6 % Normal 11.0-15.0 [facility] Comment on above: Performed By: #### CBC #### [facility] [address] [place] [address] Dr. Sam Balderrama Hematocrit (Bld) [Volume fraction] 34.2 % Critically low 36.0-48.0 [facility] Comment on above: Performed By: #### CBC #### [facility] [address] [address] [address] Sam Balderrama Hemoglobin (Bld) [Mass/Vol] 10.9 g/dL Critically low 12.0-16.0 [facility] Comment on above: Performed By: #### CBC #### [facility] [address] [place] [address] Dr. Sam Balderrama IG # 0.10 10e3/ul Critically high 0.00-0.03 [facility] Comment on above: Performed By: #### CBC #### [facility] [address] [place] [address] Dr. Sam Balderrama IG % 1.1 % Critically high 0.0-0.5 [facility] Comment on above: Performed By: #### CBC #### [facility] [address] [place] [address] Dr. Sam Balderrama LYMPH # 2.7 103/ul Normal 1.2-3.8 [facility] Comment on above: Performed By: #### CBC #### [facility] [address] [place] [address] Dr. Sam Balderrama Lymphocytes/100 WBC (Bld) 31.0 % Normal 20.5-60.0 [facility] Comment on above: Performed By: #### CBC #### [facility] [address] [place] [address] Dr. Sam Balderrama MANUAL DIFF REQ NO Normal [facility] Comment on above: Performed By: #### CBC #### [facility] [address] [place] [address] Dr. Sam Balderrama MCH (RBC) [Entitic mass] 30.8 pg Normal 26.7-34.0 [facility] Comment on above: Performed By: #### CBC #### [facility] [address] [place] [address] Dr. Sam Balderrama MCHC (RBC) [Mass/Vol] 31.9 g/dL Normal 29.9-35.2 [facility] Comment on above: Performed By: #### CBC #### [facility] [address] [place] [address] Dr. Sam Balderrama MCV (RBC) [Entitic vol] 96.6 fL Normal 81.0-99.0 [facility] Comment on above: Performed By: #### CBC #### [facility] [address] [place] [address] Dr. Sam Balderrama MONO # 0.9 103/ul Critically high 0.3-0.8 [facility] Comment on above: Performed By: #### CBC #### [facility] [address] [place] [address] Dr. Sam Balderrama Monocytes/100 WBC (Bld) 10.5 % Normal 1.7-12.0 [facility] Comment on above: Performed By: #### CBC #### [facility] [address] [place] [address] Dr. Sam Balderrama NEUT # 4.7 103/ul Normal 1.4-6.5 [facility] Comment on above: Performed By: #### CBC #### [facility] [address] [place] [address] Dr. Sam Balderrama Neutrophils/100 WBC (Bld) 54.1 % Normal 43.0-75.0 [facility] Comment on above: Performed By: #### CBC #### [facility] [address] [place] [address] Dr. Sam Balderrama Platelet mean volume (Bld) [Entitic vol] 9.7 fL Normal 9.5-13.5 [facility] Comment on above: Performed By: #### CBC #### [facility] [address] [place] [address] Dr. Sam Balderrama PLT 258 103/ul Normal 150-450 [facility] Comment on above: Performed By: #### CBC #### [facility] [address] [place] [address] Dr. Sam Balderrama RBC 3.54 106/ul Critically low 4.20-5.40 [facility] Comment on above: Performed By: #### CBC #### [facility] [address] [place] [address] Dr. Sam Balderrama WBC 8.7 103/ul Normal 4.0-11.0 [facility] Comment on above: Performed By: #### CBC #### [facility] [address] [place] [address] Dr. Sam Balderrama POINT OF CARE GLUCOSEon 12-11 Glucose [Mass/Vol] 145 mg/dL Critically high 74-106 [facility] Comment on above: Performed By: #### A1C #### [facility] [address] [place] [address] Dr. Sam Balderrama PROF 14(COMP METB)on 022 Albumin [Mass/Vol] 2.8 g/dL Critically low 3.4-5.0 [facility] Comment on above: Performed By: #### CVDTBH #### [facility] [address] [place] [address] Dr. Sam Balderrama Albumin/Globulin [Mass ratio] 1.2 {ratio} Normal [facility] Comment on above: Performed By: #### CVDTBH #### [facility] [address] [place] [address] Dr. Sam Balderrama ALP [Catalytic activity/Vol] 48 U/L Normal 46-116 [facility] Comment on above: Performed By: #### CVDTBH #### [facility] [address] [place] [address] Dr. Sam Balderrama ALT [Catalytic activity/Vol] 32 U/L Normal 14-59 [facility] Comment on above: Performed By: #### CVDTBH #### [facility] [address] [place] [address] Dr. Sam Balderrama Anion gap [Moles/Vol] 10.9 mmol/L Normal [facility] Comment on above: Performed By: #### CVDTBH #### [facility] [address] [place] [address] Dr. Sam Balderrama AST [Catalytic activity/Vol] 17 U/L Normal 15-37 [facility] Comment on above: Performed By: #### CVDTBH #### [facility] [address] [place] [address] Dr. Sam Balderrama Bilirubin [Mass/Vol] 0.5 mg/dL Normal 0.2-1.0 [facility] Comment on above: Performed By: #### CVDTBH #### [facility] [address] [place] [address] Dr. Sam Balderrama Calcium [Mass/Vol] 8.4 mg/dL Critically low 8.5-10.1 [facility] Comment on above: Performed By: #### CVDTBH #### [facility] [address] [place] [address] Dr. Sam Balderrama Chloride [Moles/Vol] 105 mmol/L Normal 98-107 [facility] Comment on above: Performed By: #### CVDTBH #### [facility] [address] [place] [address] Dr. Sam Balderrama CO2 [Moles/Vol] 29.5 mmol/L Normal 21.0-32.0 [facility] Comment on above: Performed By: #### CVDTBH #### [facility] [address] [place] [address] Dr. Sam Balderrama Creatinine [Mass/Vol] 0.90 mg/dL Normal 0.55-1.02 [facility] Comment on above: Performed By: #### CVDTBH #### [facility] [address] [place] [address] Dr. Sam Balderrama EGFR-AF TRISTANIAN >60 Normal >=60 [facility] Comment on above: Performed By: #### CVDTBH #### [facility] [address] [place] [address] Dr. Sam Balderrama EGFR-NON AF TRISTANIAN >60 Normal >=60 [facility] Comment on above: Performed By: #### CVDTBH #### [facility] [address] [place] [address] [address] Sam Balderrama Globulin (S) [Mass/Vol] 2.4 g/dL Normal [facility] Comment on above: Performed By: #### CVDTBH #### [facility] [address] [place] [address] Dr. Sam Balderrama Glucose [Mass/Vol] 134 mg/dL Critically high 74-106 [facility] Comment on above: Performed By: #### CVDTBH #### [facility] [address] [address] [address] Sam Balderrama Potassium [Moles/Vol] 4.4 mmol/L Normal 3.5-5.1 [facility] Comment on above: Performed By: #### CVDTBH #### [facility] [address] [place] [address] Dr. Sam Balderrama Protein [Mass/Vol] 5.2 g/dL Critically low 6.4-8.2 [facility] Comment on above: Performed By: #### CVDTBH #### [facility] [address] [place] [address] Dr. Sam Balderrama Sodium [Moles/Vol] 141 mmol/L Normal 136-145 [facility] Comment on above: Performed By: #### CVDTBH #### [facility] [address] [place] [address] Dr. Sam Balderrama Urea nitrogen [Mass/Vol] 14.0 mg/dL Normal 7.0-18.0 [facility] Comment on above: Performed By: #### CVDTBH #### [facility] [address] [place] [address] Dr. Sam Balderrama Urea nitrogen/Creatin ine [Mass ratio] 15.6 mg/mg Normal [facility] Comment on above: Performed By: #### CVDTBH #### [facility] [address] [place] [address] Dr. Sam Balderrama BNPon 01-06-2022 Natriuretic peptide B (Bld) [Mass/Vol] 213.0 pg/mL Normal <=1,800.0 [facility] Comment on above: Performed By: #### BNP, CMP, LIPA #### [facility] [address] [place] [address] Dr. Sam Balderrama CBC AUTO DIFFon 01-06-2022 BASO # 0.1 103/ul Normal 0.0-0.1 [facility] Comment on above: Performed By: #### BNP, CMP, LIPA #### [facility] [address] [place], [place] [id number] Dr. Sam Balderrama Basophils/100 WBC (Bld) 0.6 % Normal 0.2-2.0 [facility] Comment on above: Performed By: #### BNP, CMP, LIPA #### [facility] [address] [place] [address] Dr. Sam Balderrama EO # 0.2 103/ul Normal 0.0-0.7 [facility] Comment on above: Performed By: #### BNP, CMP, LIPA #### [facility] [address] [place] [address] Dr. Sam Balderrama Eosinophils/100 WBC (Bld) 2.5 % Normal 0.9-7.0 [facility] Comment on above: Performed By: #### BNP, CMP, LIPA #### [facility] [address] [place] [address] Dr. Sam Balderrama Erythrocyte distribution width (RBC) [Ratio] 12.7 % Normal 11.0-15.0 [facility] Comment on above: Performed By: #### BNP, CMP, LIPA #### [facility] [address] [place] [address] Dr. Sam Balderrama Hematocrit (Bld) [Volume fraction] 35.7 % Critically low 36.0-48.0 [facility] Comment on above: Performed By: #### BNP, CMP, LIPA #### [facility] [address] [place] [address] Dr. Sam Balderrama Hemoglobin (Bld) [Mass/Vol] 11.4 g/dL Critically low 12.0-16.0 [facility] Comment on above: Performed By: #### BNP, CMP, LIPA #### [facility] [address] [place] [address] Dr. Sam Balderrama IG # 0.15 10e3/ul Critically high 0.00-0.03 [facility] Comment on above: Performed By: #### BNP, CMP, LIPA #### [facility] [address] [place] [address] Dr. Sam Balderrama IG % 1.9 % Critically high 0.0-0.5 [facility] Comment on above: Performed By: #### BNP, CMP, LIPA #### [facility] [address] [place] [address] Dr. Sam Balderrama LYMPH # 2.7 103/ul Normal 1.2-3.8 [facility] Comment on above: Performed By: #### BNP, CMP, LIPA #### [facility] [address] [place] [address] Dr. Sam Balderrama Lymphocytes/100 WBC (Bld) 33.5 % Normal 20.5-60.0 [facility] Comment on above: Performed By: #### BNP, CMP, LIPA #### [facility] [address] [place] [address] Dr. Sam Balderrama MANUAL DIFF REQ NO Normal [facility] Comment on above: Performed By: #### BNP, CMP, LIPA #### [facility] [address] [place] [address] Dr. Sam Balderrama MCH (RBC) [Entitic mass] 31.0 pg Normal 26.7-34.0 [facility] Comment on above: Performed By: #### BNP, CMP, LIPA #### [facility] [address] [place] [address] Dr. Sam Balderrama MCHC (RBC) [Mass/Vol] 31.9 g/dL Normal 29.9-35.2 [facility] Comment on above: Performed By: #### BNP, CMP, LIPA #### [facility] [address] [place] [address] Dr. Sam Balderrama MCV (RBC) [Entitic vol] 97.0 fL Normal 81.0-99.0 [facility] Comment on above: Performed By: #### BNP, CMP, LIPA #### [facility] [address] [place] [address] Dr. Sam Balderrama MONO # 0.8 103/ul Normal 0.3-0.8 [facility] Comment on above: Performed By: #### BNP, CMP, LIPA #### [facility] [address] [place] [address] Dr. Sam Balderrama Monocytes/100 WBC (Bld) 9.8 % Normal 1.7-12.0 [facility] Comment on above: Performed By: #### BNP, CMP, LIPA #### [facility] [address] [place] [address] Dr. Sam Balderrama NEUT # 4.1 103/ul Normal 1.4-6.5 [facility] Comment on above: Performed By: #### BNP, CMP, LIPA #### [facility] [address] [place] [address] Dr. Sam Balderrama Neutrophils/100 WBC (Bld) 51.7 % Normal 43.0-75.0 [facility] Comment on above: Performed By: #### BNP, CMP, LIPA #### [facility] [address] [place] [address] Dr. Sam Balderrama Platelet mean volume (Bld) [Entitic vol] 9.6 fL Normal 9.5-13.5 [facility] Comment on above: Performed By: #### BNP, CMP, LIPA #### [facility] [address] [place] [address] Dr. Sam Balderrama PLT 281 103/ul Normal 150-450 [facility] Comment on above: Performed By: #### BNP, CMP, LIPA #### [facility] [address] [place] [address] Dr. Sam Balderrama RBC 3.68 106/ul Critically low 4.20-5.40 [facility] Comment on above: Performed By: #### BNP, CMP, LIPA #### [facility] [address] [place] [address] Dr. Sam Balderrama WBC 7.9 103/ul Normal 4.0-11.0 [facility] Comment on above: Performed By: #### BNP, CMP, LIPA #### [facility] [address] [place] [address] Dr. Sam Balderrama LIPASEon 01-06-2022 Lipase [Catalytic activity/Vol] 219.0 U/L Normal 73.0-393.0 [facility] Comment on above: Performed By: #### BNP, CMP, LIPA #### [facility] [address] [place] [address] [address] Sam Balderrama OCC BLD IMMUNOASSAYon 2021 OCCULT BLOOD Negative Normal NEGATIVE [facility] Comment on above: Performed By: #### A1C #### [facility] [address] [place] [address] [address] Sam Balderrama POINT OF CARE GLUCOSEon 12-10 Glucose [Mass/Vol] 162 mg/dL Critically high 74-106 [facility] Comment on above: Performed By: #### CVDTBH #### [facility] [address] [place] [address] [address] Sam Balderrama Glucose [Mass/Vol] 103 mg/dL Normal 74-106 [facility] Comment on above: Performed By: #### BNP, CMP, LIPA #### [facility] [address] [place] [address] Dr. Sam Balderrama Glucose [Mass/Vol] 137 mg/dL Critically high 74-106 [facility] Comment on above: Performed By: #### BNP, CMP, LIPA #### [facility] [address] [place] [address] Dr. Sam Balderrama PROF 14(COMP METB)on 022 Albumin [Mass/Vol] 2.8 g/dL Critically low 3.4-5.0 [facility] Comment on above: Performed By: #### BNP, CMP, LIPA #### [facility] [address] [place] [address] [address] Sam Balderrama Albumin/Globulin [Mass ratio] 1.1 {ratio} Normal [facility] Comment on above: Performed By: #### BNP, CMP, LIPA #### [facility] [address] [place] [address] [address] Sam Balderrama ALP [Catalytic activity/Vol] 51 U/L Normal 46-116 [facility] Comment on above: Performed By: #### BNP, CMP, LIPA #### [facility] [address] [place] [address] Dr. Sam Balderraam ALT [Catalytic activity/Vol] 32 U/L Normal 14-59 [facility] Comment on above: Performed By: #### BNP, CMP, LIPA #### [facility] [address] [place] [address] [address] Sam Balderrama Anion gap [Moles/Vol] 10.6 mmol/L Normal [facility] Comment on above: Performed By: #### BNP, CMP, LIPA #### [facility] [address] [place] [address] [address] Sam Balderrama AST [Catalytic activity/Vol] 16 U/L Normal 15-37 [facility] Comment on above: Performed By: #### BNP, CMP, LIPA #### [facility] [address] [place] [address] [address] Sam Balderrama Bilirubin [Mass/Vol] 0.5 mg/dL Normal 0.2-1.0 [facility] Comment on above: Performed By: #### BNP, CMP, LIPA #### [facility] [address] [place] [address] Dr. Sam Balderrama Calcium [Mass/Vol] 8.4 mg/dL Critically low 8.5-10.1 [facility] Comment on above: Performed By: #### BNP, CMP, LIPA #### [facility] [address] [place] [address] Dr. Sam Balderrama Chloride [Moles/Vol] 105 mmol/L Normal 98-107 [facility] Comment on above: Performed By: #### BNP, CMP, LIPA #### [facility] [address] [place] [address] [address] Sam Balderrama CO2 [Moles/Vol] 28.7 mmol/L Normal 21.0-32.0 [facility] Comment on above: Performed By: #### BNP, CMP, LIPA #### [facility] [address] [place] [address] Dr. Sam Balderrama Creatinine [Mass/Vol] 0.94 mg/dL Normal 0.55-1.02 [facility] Comment on above: Performed By: #### BNP, CMP, LIPA #### [facility] [address] [place] [address] Dr. Sam Balderrama EGFR-AF TRISTANIAN >60 Normal >=60 [facility] Comment on above: Performed By: #### BNP, CMP, LIPA #### [facility] [address] [place] [address] Dr. Sam Balderrama EGFR-NON AF TRISTANIAN 58 mL/min/1.73m2 Critically low >=60 [facility] Comment on above: Performed By: #### BNP, CMP, LIPA #### [facility] [address] [place] [address] Dr. Sam Balderrama Globulin (S) [Mass/Vol] 2.6 g/dL Normal [facility] Comment on above: Performed By: #### BNP, CMP, LIPA #### [facility] [address] [place] [address] Dr. Sam Balderrama Glucose [Mass/Vol] 160 mg/dL Critically high 74-106 [facility] Comment on above: Performed By: #### BNP, CMP, LIPA #### [facility] [address] [place] [address] Dr. Sam Balderrama Potassium [Moles/Vol] 4.3 mmol/L Normal 3.5-5.1 [facility] Comment on above: Performed By: #### BNP, CMP, LIPA #### [facility] [address] [place] [address] Dr. Sam Balderrama Protein [Mass/Vol] 5.4 g/dL Critically low 6.4-8.2 [facility] Comment on above: Performed By: #### BNP, CMP, LIPA #### [facility] [address] [place] [address] Dr. Sam Balderrama Sodium [Moles/Vol] 140 mmol/L Normal 136-145 [facility] Comment on above: Performed By: #### BNP, CMP, LIPA #### [facility] [address] [place] [address] Dr. Sam Balderrama Urea nitrogen [Mass/Vol] 16.0 mg/dL Normal 7.0-18.0 [facility] Comment on above: Performed By: #### BNP, CMP, LIPA #### [facility] [address] [place], [place] [id number] Dr. Sam Balderrama Urea nitrogen/Creatin ine [Mass ratio] 17.0 mg/mg Normal [facility] Comment on above: Performed By: #### BNP, CMP, LIPA #### [facility] [address] [place] [address] Dr. Sam Balderrama BNPon 01-05-2022 Natriuretic peptide B (Bld) [Mass/Vol] 297.0 pg/mL Normal <=1,800.0 [facility] Comment on above: Performed By: #### BNP, CMP, LIPA #### [facility] [address] [place] [address] Dr. Sam Balderrama CBC AUTO DIFFon 01-05-2022 BASO # 0.1 103/ul Normal 0.0-0.1 [facility] Comment on above: Performed By: #### CVDTBH #### [facility] [address] [place] [address] Dr. Sam Balderrama Basophils/100 WBC (Bld) 0.7 % Normal 0.2-2.0 [facility] Comment on above: Performed By: #### CVDTBH #### [facility] [address] [place] [address] Dr. Sam Balderrama EO # 0.3 103/ul Normal 0.0-0.7 [facility] Comment on above: Performed By: #### CVDTBH #### [facility] [address] [place] [address] Dr. Sam Balderrama Eosinophils/100 WBC (Bld) 2.6 % Normal 0.9-7.0 [facility] Comment on above: Performed By: #### CVDTBH #### [facility] [address] [place] [address] Dr. Sam Balderrama Erythrocyte distribution width (RBC) [Ratio] 12.7 % Normal 11.0-15.0 [facility] Comment on above: Performed By: #### CVDTBH #### [facility] [address] [place] [address] Dr. Sam Balderrama Hematocrit (Bld) [Volume fraction] 36.7 % Normal 36.0-48.0 [facility] Comment on above: Performed By: #### CVDTBH #### [facility] [address] [address] [address] Sam Balderrama Hemoglobin (Bld) [Mass/Vol] 11.9 g/dL Critically low 12.0-16.0 [facility] Comment on above: Performed By: #### CVDTBH #### [facility] [address] [place] [address] Dr. Sam Balderrama IG # 0.42 10e3/ul Critically high 0.00-0.03 [facility] Comment on above: Performed By: #### CVDTBH #### [facility] [address] [place] [address] Dr. Sam Balderrama IG % 3.8 % Critically high 0.0-0.5 [facility] Comment on above: Performed By: #### CVDTBH #### [facility] [address] [place] [address] Dr. Sam Balderrama LYMPH # 3.1 103/ul Normal 1.2-3.8 [facility] Comment on above: Performed By: #### CVDTBH #### [facility] [address] [place] [address] Dr. Sam Balderrama Lymphocytes/100 WBC (Bld) 27.7 % Normal 20.5-60.0 [facility] Comment on above: Performed By: #### CVDTBH #### [facility] [address] [place] [address] Dr. Sam Balderrama MANUAL DIFF REQ NO Normal [facility] Comment on above: Performed By: #### CVDTBH #### [facility] [address] [place] [address] Dr. Sam Balderrama MCH (RBC) [Entitic mass] 30.5 pg Normal 26.7-34.0 [facility] Comment on above: Performed By: #### CVDTBH #### [facility] [address] [place] [address] Dr. Sam Balderrama MCHC (RBC) [Mass/Vol] 32.4 g/dL Normal 29.9-35.2 [facility] Comment on above: Performed By: #### CVDTBH #### [facility] [address] [address] [address] Sam Balderrama MCV (RBC) [Entitic vol] 94.1 fL Normal 81.0-99.0 [facility] Comment on above: Performed By: #### CVDTBH #### [facility] [address] [address] [address] Sam Balderrama MONO # 1.1 103/ul Critically high 0.3-0.8 [facility] Comment on above: Performed By: #### CVDTBH #### [facility] [address] [place] [address] Dr. Sam Balderrama Monocytes/100 WBC (Bld) 9.5 % Normal 1.7-12.0 [facility] Comment on above: Performed By: #### CVDTBH #### [facility] [address] [place] [address] Dr. Sam Balderrama NEUT # 6.2 103/ul Normal 1.4-6.5 [facility] Comment on above: Performed By: #### CVDTBH #### [facility] [address] [place] [address] Dr. Sam Balderrama Neutrophils/100 WBC (Bld) 55.7 % Normal 43.0-75.0 [facility] Comment on above: Performed By: #### CVDTBH #### [facility] [address] [place] [address] Dr. Sam Balderrama Platelet mean volume (Bld) [Entitic vol] 9.4 fL Critically low 9.5-13.5 [facility] Comment on above: Performed By: #### CVDTBH #### [facility] [address] [place] [address] Dr. Sam Balderrama PLT 308 103/ul Normal 150-450 [facility] Comment on above: Performed By: #### CVDTBH #### [facility] [address] [place] [address] Dr. Sam Balderrama RBC 3.90 106/ul Critically low 4.20-5.40 [facility] Comment on above: Performed By: #### CVDTBH #### [facility] [address] [address] [address] Sam Balderrama WBC 11.1 103/ul Critically high 4.0-11.0 [facility] Comment on above: Performed By: #### CVDTBH #### [facility] [address] [address] [address] Sam Balderrama Covid-19 PCR ([facility])on 12-10 SARS-CoV-2 (COVID-19) RNA MANNY+probe Ql (Unsp spec) Detected Critically abnormal NOT DETECTED [facility] Comment on above: Result Comment: This test is not yet jose roved or cleared by the [place] FDA. When there are no FDA-approved or cleared tests available, and other criteria are met, FDA can make tests available under an emergency access mechanism called an Emergency Use Authorization (EUA). The EUA for this test is supported by the Mult[employer] Editor of Health and Human Service's declaration that [...] longer be used). Performed By: #### B NETWORK FIREWALL ENGINEER, CMP, LIPA #### [facility] [address] [place] [address] Dr. Sam Balderrama LACTATE/LACTIC ACIDon 2021 Lactate [Moles/Vol] 1.6 mmol/L Normal 0.4-1.9 [facility] Comment on above: Performed By: #### A1C #### [facility] [address] [address] [address] Sam Balderrama Lactate [Moles/Vol] 2.2 mmol/L Critically high 0.4-1.9 [facility] Comment on above: Performed By: #### BNP, CMP, LIPA #### [facility] [address] [address] [address] Sam Balderrama LIPASEon 01-05-2022 Lipase [Catalytic activity/Vol] 110.0 U/L Normal 73.0-393.0 [facility] Comment on above: Performed By: #### BNP, CMP, LIPA #### [facility] [address] [place] [address] Dr. Sam Balderrama POINT OF CARE GLUCOSEon 12-10 Glucose [Mass/Vol] 220 mg/dL Critically high 74-106 [facility] Comment on above: Performed By: #### CVDTBH #### [facility] [address] [address] [address] Sam Balderrama Glucose [Mass/Vol] 136 mg/dL Critically high 74-106 [facility] Comment on above: Performed By: #### CVDTBH #### [facility] [address] [place] [address] Dr. Sam Balderrama Glucose [Mass/Vol] 156 mg/dL Critically high 74-106 [facility] Comment on above: Performed By: #### BNP, CMP, LIPA #### [facility] [address] [place] [address] Dr. Sam Balderrama PROF 14(COMP METB)on 022 Albumin [Mass/Vol] 2.8 g/dL Critically low 3.4-5.0 [facility] Comment on above: Performed By: #### BNP, CMP, LIPA #### [facility] [address] [place] [address] Dr. Sam Balderrama Albumin/Globulin [Mass ratio] 1.1 {ratio} Normal [facility] Comment on above: Performed By: #### BNP, CMP, LIPA #### [facility] [address] [place] [address] Dr. Sam Balderrama ALP [Catalytic activity/Vol] 57 U/L Normal 46-116 [facility] Comment on above: Performed By: #### BNP, CMP, LIPA #### [facility] [address] [place] [address] Dr. Sam Balderrama ALT [Catalytic activity/Vol] 38 U/L Normal 14-59 [facility] Comment on above: Performed By: #### BNP, CMP, LIPA #### [facility] [address] [address] [address] Sam Balderrama Anion gap [Moles/Vol] 10.2 mmol/L Normal [facility] Comment on above: Performed By: #### BNP, CMP, LIPA #### [facility] [address] [address] [address] Sam Balderrama AST [Catalytic activity/Vol] 19 U/L Normal 15-37 [facility] Comment on above: Performed By: #### BNP, CMP, LIPA #### [facility] [address] [place] [address] Dr. Sam Balderrama Bilirubin [Mass/Vol] 0.9 mg/dL Normal 0.2-1.0 [facility] Comment on above: Performed By: #### BNP, CMP, LIPA #### [facility] [address] [place] [address] Dr. Sam Balderrama Calcium [Mass/Vol] 8.3 mg/dL Critically low 8.5-10.1 [facility] Comment on above: Performed By: #### BNP, CMP, LIPA #### [facility] [address] [place] [address] Dr. Sam Balderrama Chloride [Moles/Vol] 102 mmol/L Normal 98-107 [facility] Comment on above: Performed By: #### BNP, CMP, LIPA #### [facility] [address] [place] [address] Dr. Sam Balderrama CO2 [Moles/Vol] 29.1 mmol/L Normal 21.0-32.0 [facility] Comment on above: Performed By: #### BNP, CMP, LIPA #### [facility] [address] [place] [address] Dr. Sam Balderrama Creatinine [Mass/Vol] 0.88 mg/dL Normal 0.55-1.02 [facility] Comment on above: Performed By: #### BNP, CMP, LIPA #### [facility] [address] [place] [address] Dr. Sam Balderrama EGFR-AF TRISTANIAN >60 Normal >=60 [facility] Comment on above: Performed By: #### BNP, CMP, LIPA #### [facility] [address] [address] [address] Sam Balderrama EGFR-NON AF TRISTANIAN >60 Normal >=60 [facility] Comment on above: Performed By: #### BNP, CMP, LIPA #### [facility] [address] [address] [address] Sam Balderrama Globulin (S) [Mass/Vol] 2.6 g/dL Normal [facility] Comment on above: Performed By: #### BNP, CMP, LIPA #### [facility] [address] [address] [address] Sam Balderrama Glucose [Mass/Vol] 160 mg/dL Critically high 74-106 [facility] Comment on above: Performed By: #### BNP, CMP, LIPA #### [facility] [address] [address] [address] Sam Balderrama Potassium [Moles/Vol] 3.3 mmol/L Critically low 3.5-5.1 [facility] Comment on above: Performed By: #### BNP, CMP, LIPA #### [facility] [address] [address] [address] Sam Balderrama Protein [Mass/Vol] 5.4 g/dL Critically low 6.4-8.2 [facility] Comment on above: Performed By: #### BNP, CMP, LIPA #### [facility] [address] [address] [address] Sam Balderrama Sodium [Moles/Vol] 138 mmol/L Normal 136-145 [facility] Comment on above: Performed By: #### BNP, CMP, LIPA #### [facility] [address] [address] [address] Sam Balderrama Urea nitrogen [Mass/Vol] 18.0 mg/dL Normal 7.0-18.0 [facility] Comment on above: Performed By: #### BNP, CMP, LIPA #### [facility] [address] [address] [address] Sam Balderrama Urea nitrogen/Creatin ine [Mass ratio] 20.5 mg/mg Normal [facility] Comment on above: Performed By: #### BNP, CMP, LIPA #### [facility] [address] [place] [address] Dr. Sam Balderrama CARDIAC LINDA ADMITon 022 CK [Catalytic activity/Vol] 73 U/L Normal 26-192 [facility] Comment on above: Performed By: #### BNP, CMP, LIPA #### [facility] [address] [place] [address] Dr. Sam Balderrama CK.MB [Mass/Vol] 1.78 ng/mL Normal <=3.60 [facility] Comment on above: Performed By: #### BNP, CMP, LIPA #### [facility] [address] [place] [address] Dr. Sam Balderrama HSTROP 36.5 pg/mL Normal 4.0-51.3 [facility] Comment on above: Result Comment: CUT-OFF POINTS HAVE BEEN ESTABLISHED BASED ON THE FOURTH UNIVERSAL DEFINITIONS OF MYOCARDIAL INFARCTION. THE UPPER REFERENCE LIMIT (URL) OF TROPONIN, DEFINED THE 99TH PERCENTILE OF cTnI DISTRIBUTION IN A REFERENCE POPULATION, HAS BEEN CONFIRMED THE DECISION THRESHOLD FOR OH DIAGNOSIS. Performed By: #### B NETWORK FIREWALL ENGINEER, CMP, LIPA #### [facility] [address] [place] [address] Dr. Sam Balderrama JAZMYNE 42 ng/mL Normal 9-82 [facility] Comment on above: Performed By: #### BNP, CMP, LIPA #### [facility] [address] [place] [address] Dr. Sam Balderrama CBC AUTO DIFFon 01-04-2022 BASO # 0.0 103/ul Normal 0.0-0.1 [facility] Comment on above: Performed By: #### CBC #### [facility] [address] [place] [address] Dr. Sam Balderrama Basophils/100 WBC (Bld) 0.1 % Critically low 0.2-2.0 [facility] Comment on above: Performed By: #### CBC #### [facility] [address] [place] [address] Dr. Sam Balderrama EO # 0.3 103/ul Normal 0.0-0.7 [facility] Comment on above: Performed By: #### CBC #### [facility] [address] [place] [address] Dr. Sam Balderrama Eosinophils/100 WBC (Bld) 1.7 % Normal 0.9-7.0 [facility] Comment on above: Performed By: #### CBC #### [facility] [address] [place] [address] Dr. Sam Balderrama Erythrocyte distribution width (RBC) [Ratio] 12.6 % Normal 11.0-15.0 [facility] Comment on above: Performed By: #### CBC #### [facility] [address] [place] [address] Dr. Sam Balderrama Hematocrit (Bld) [Volume fraction] 43.2 % Normal 36.0-48.0 [facility] Comment on above: Performed By: #### CBC #### [facility] [address] [place] [address] Dr. Sam Balderrama Hemoglobin (Bld) [Mass/Vol] 14.3 g/dL Normal 12.0-16.0 [facility] Comment on above: Performed By: #### CBC #### [facility] [address] [place] [address] Dr. Sam Balderrama IG # 0.85 10e3/ul Critically high 0.00-0.03 [facility] Comment on above: Performed By: #### CBC #### [facility] [address] [place] [address] Dr. Sam Balderrama IG % 5.3 % Critically high 0.0-0.5 [facility] Comment on above: Performed By: #### CBC #### [facility] [address] [place] [address] Dr. Sam Balderrama LYMPH # 2.6 103/ul Normal 1.2-3.8 [facility] Comment on above: Performed By: #### CBC #### [facility] [address] [place] [address] Dr. Sam Balderrama Lymphocytes/100 WBC (Bld) 16.4 % Critically low 20.5-60.0 [facility] Comment on above: Performed By: #### CBC #### [facility] [address] [place] [address] Dr. Sam Balderrama MANUAL DIFF REQ NO Normal [facility] Comment on above: Performed By: #### CBC #### [facility] [address] [place] [address] Dr. Sam Balderrama MCH (RBC) [Entitic mass] 31.0 pg Normal 26.7-34.0 [facility] Comment on above: Performed By: #### CBC #### [facility] [address] [place] [address] Dr. Sam Balderrama MCHC (RBC) [Mass/Vol] 33.1 g/dL Normal 29.9-35.2 [facility] Comment on above: Performed By: #### CBC #### [facility] [address] [place] [address] Dr. Sam Balderrama MCV (RBC) [Entitic vol] 93.7 fL Normal 81.0-99.0 [facility] Comment on above: Performed By: #### CBC #### [facility] [address] [place] [address] Dr. Sam Balderrama MONO # 1.2 103/ul Critically high 0.3-0.8 [facility] Comment on above: Performed By: #### CBC #### [facility] [address] [place] [address] Dr. Sam Balderrama Monocytes/100 WBC (Bld) 7.7 % Normal 1.7-12.0 [facility] Comment on above: Performed By: #### CBC #### [facility] [address] [place] [address] Dr. Sam Balderrama NEUT # 11.0 103/ul Critically high 1.4-6.5 [facility] Comment on above: Performed By: #### CBC #### [facility] [address] [place] [address] Dr. Sam Balderrama Neutrophils/100 WBC (Bld) 68.8 % Normal 43.0-75.0 [facility] Comment on above: Performed By: #### CBC #### [facility] [address] [place] [address] Dr. Sam Balderrama Platelet mean volume (Bld) [Entitic vol] 9.9 fL Normal 9.5-13.5 [facility] Comment on above: Performed By: #### CBC #### [facility] [address] [place] [address] Dr. Sam Balderrama PLT 337 103/ul Normal 150-450 [facility] Comment on above: Performed By: #### CBC #### [facility] [address] [place] [address] Dr. Sam Balderrama RBC 4.61 106/ul Normal 4.20-5.40 [facility] Comment on above: Performed By: #### CBC #### [facility] [address] [place] [address] Dr. Sam Balderrama WBC 16.0 103/ul Critically high 4.0-11.0 [facility] Comment on above: Performed By: #### CBC #### [facility] [address] [place] [address] Dr. Sam Balderrama CULTURE URINEon 01-04-2022 CULTURE URINE Culture Observations : HEAVY GROWTH OF MIXED GENITAL ALEJANDRO. NO POTENTIAL PATHOGENS SEEN. Normal [facility] Comment on above: Performed By: #### BNP, CMP, LIPA #### [facility] [address] [place] [address] Dr. Sam Balderrama ER URINE PROFILEon 2 Bilirubin Ql (U) Negative Normal NEGATIVE [facility] Comment on above: Performed By: #### A1C #### [facility] [address] [place] [address] Dr. Sam Balderrama Clarity (U) CLEAR Normal CLEAR [facility] Comment on above: Performed By: #### A1C #### [facility] [address] [place] [address] Dr. Sam Balderrama Color (U) LT. YELLOW Normal YELLOW [facility] Comment on above: Performed By: #### A1C #### [facility] [address] [place] [address] Dr. Sam Balderrama ERUAHD A micrscopic examina tion will be performed if indicated. Normal [facility] Comment on above: Performed By: #### A1C #### [facility] [address] [place] [address] Dr. Sam Balderrama Glucose Ql (U) Negative Normal NEGATIVE [facility] Comment on above: Performed By: #### A1C #### [facility] [address] [place] [address] Dr. Sam Balderrama Hemoglobin Ql (U) Negative Normal NEGATIVE [facility] Comment on above: Performed By: #### A1C #### [facility] [address] [place] [address] Dr. Sam Balderrama Ketones Ql (U) Negative Normal NEGATIVE [facility] Comment on above: Performed By: #### A1C #### [facility] [address] [place] [address] Dr. Sam Balderrama LEUKOCYTES TRACE Abnormal NEGATIVE [facility] Comment on above: Performed By: #### A1C #### [facility] [address] [place] [address] Dr. Sam Balderrama Nitrite Ql (U) Negative Normal NEGATIVE [facility] Comment on above: Performed By: #### A1C #### [facility] [address] [place] [address] Dr. Sam Balderrama pH (U) 6.0 [pH] Normal 5-9 [facility] Comment on above: Performed By: #### A1C #### [facility] [address] [place] [address] Dr. Sam Balderrama SPEC GRAVITY <=1.005 Abnormal 1.005-<=1.[address] [facility] Comment on above: Performed By: #### A1C #### [facility] [address] [place] [address] Dr. Sam Balderrama UA PROTEIN Negative Normal NEGATIVE/ TRACE [facility] Comment on above: Performed By: #### A1C #### [facility] [address] [place] [address] Dr. Sam Balderrama UR MICRO IND INDICATED Normal [facility] Comment on above: Performed By: #### A1C #### [facility] [address] [place], [place] [id number] Dr. Sam Balderrama Urobilinogen Qn (U) 0.2 {Bruna'U}/dL Normal 0.2 - 1.0 [facility] Comment on above: Performed By: #### A1C #### [facility] [address] [place] [address] Dr. Sam Balderrama GI PANEL (PCR)on 01-04-2022 Adenovirus F 40/41 Not detected Normal NOT DETECTED [facility] Comment on above: Performed By: #### CVDTBH #### [facility] [address] [place] [address] Dr. Sam Balderrama Astrovirus Not detected Normal NOT DETECTED [facility] Comment on above: Performed By: #### CVDTBH #### [facility] [address] [place] [address] Dr. Sam Balderrama C. Diff toxin A/B Detected Critically abnormal NOT DETECTED [facility] Comment on above: Performed By: #### CVDTBH #### [facility] [address] [place] [address] Dr. Sam Balderrama Campylobacter Not detected Normal NOT DETECTED [facility] Comment on above: Performed By: #### CVDTBH #### [facility] [address] [place] [address] Dr. Sam Balderrama Cryptosporidium Not detected Normal NOT DETECTED [facility] Comment on above: Performed By: #### CVDTBH #### [facility] [address] [place] [address] Dr. Sam Balderrama Cyclos. Cayetanensis Not detected Normal NOT DETECTED [facility] Comment on above: Performed By: #### CVDTBH #### [facility] [address] [place] [address] Dr. Sam Balderrama E. Coli O157 Not Applicable Normal Not Applicable [facility] Comment on above: Performed By: #### CVDTBH #### [facility] [address] [place] [address] Dr. Sam Balderrama E. histolytica Not detected Normal NOT DETECTED [facility] Comment on above: Performed By: #### CVDTBH #### [facility] [address] [place] [address] Dr. Sam Balderrama EAEC Not detected Normal NOT DETECTED [facility] Comment on above: Performed By: #### CVDTBH #### [facility] [address] [place] [address] Dr. Sam Balderrama EIEC Not detected Normal NOT DETECTED [facility] Comment on above: Performed By: #### CVDTBH #### [facility] [address] [place] [address] Dr. Sam Balderrama EPEC Not detected Normal NOT DETECTED [facility] Comment on above: Performed By: #### CVDTBH #### [facility] [address] [place] [address] Dr. Sam Balderrama ETEC Not detected Normal NOT DETECTED [facility] Comment on above: Performed By: #### CVDTBH #### [facility] [address] [place] [address] Dr. Sam Balderrama G. Lamblia Not detected Normal NOT DETECTED [facility] Comment on above: Performed By: #### CVDTBH #### [facility] [address] [place] [address] Dr. Sam STORY CONTROLS PASSED Normal [facility] Comment on above: Performed By: #### CVDTBH #### [facility] [address] [place] [address] Dr. Sam [facility] HEADER GI PANEL BACTERIA Normal T [facility] Comment on above: Performed By: #### CVDTBH #### [facility] [address] [place] [address] Dr. Sam FUNES ECOLI GI PANEL DIARRHEAGEN IC E.COLI / SHIGELLA Normal [facility] Comment on above: Performed By: #### CVDTBH #### [facility] [address] [place] [address] Dr. Sam FUNES INFO SEE BELOW Normal [facility] Comment on above: Result Comment: EAEC- Enteroaggregative E. Coli EPEC- Enteropathogenic E. Coli ETEC- Enterotoxigenic E. Coli lt/st STEC- Shigella-like toxin-producing E. Coli stx1/stx2 EIEC- Shigella/Enteroinvasive E. Coli Performed By: #### C VDTBH #### [facility] [address] [place] [address] Dr. Sam FUNES PARASITES GI PANEL PARASITES Normal [facility] Comment on above: Performed By: #### CVDTBH #### [facility] [address] [place] [address] Dr. Sam FUNES VIRUS GI PANEL VIRUSES Normal [facility] Comment on above: Performed By: #### CVDTBH #### [facility] [address] [place] [address] Dr. Sam Balderrama Norovirus GI/GII Not detected Normal NOT DETECTED [facility] Comment on above: Performed By: #### CVDTBH #### [facility] [address] [place] [address] Dr. Sam Balderrama P. Shigelloides Not detected Normal NOT DETECTED [facility] Comment on above: Performed By: #### CVDTBH #### [facility] [address] [place] [address] Dr. Sam Balderrama Rotavirus A Not detected Normal NOT DETECTED [facility] Comment on above: Performed By: #### CVDTBH #### [facility] [address] [place] [address] Dr. Sam Balderrama Salmonella Not detected Normal NOT DETECTED [facility] Comment on above: Performed By: #### CVDTBH #### [facility] [address] [place] [address] Dr. Sam Balderrama Sapovirus Not detected Normal NOT DETECTED [facility] Comment on above: Performed By: #### CVDTBH #### [facility] [address] [place] [address] Dr. Sam Balderrama STEC Not detected Normal NOT DETECTED [facility] Comment on above: Performed By: #### CVDTBH #### [facility] [address] [place] [address] Dr. Sam Balderrama Vibrio Not detected Normal NOT DETECTED [facility] Comment on above: Performed By: #### CVDTBH #### [facility] [address] [place] [address] Dr. Sam Balderrama Vibrio Cholera Not detected Normal NOT DETECTED [facility] Comment on above: Performed By: #### CVDTBH #### [facility] [address] [place] [address] Dr. Sam Balderrama Y. Enterocolitica Not detected Normal NOT DETECTED [facility] Comment on above: Performed By: #### CVDTBH #### [facility] [address] [place] [address] Dr. Sam Balderrama LIPASEon 01-04-2022 Lipase [Catalytic activity/Vol] 799.0 U/L Critically high 73.0-393.0 [facility] Comment on above: Performed By: #### BNP, CMP, LIPA #### [facility] [address] [place] [address] Dr. Sam Balderrama PROF 14(COMP METB)on 022 Albumin [Mass/Vol] 3.8 g/dL Normal 3.4-5.0 [facility] Comment on above: Performed By: #### BNP, CMP, LIPA #### [facility] [address] [place] [address] Dr. Sam Balderrama Albumin/Globulin [Mass ratio] 1.2 {ratio} Normal [facility] Comment on above: Performed By: #### BNP, CMP, LIPA #### [facility] [address] [place] [address] Dr. Sam Balderrama ALP [Catalytic activity/Vol] 72 U/L Normal 46-116 [facility] Comment on above: Performed By: #### BNP, CMP, LIPA #### [facility] [address] [place] [address] Dr. Sam Balderrama ALT [Catalytic activity/Vol] 49 U/L Normal 14-59 [facility] Comment on above: Performed By: #### BNP, CMP, LIPA #### [facility] [address] [place] [address] Dr. Sam Balderrama Anion gap [Moles/Vol] 13.2 mmol/L Normal [facility] Comment on above: Performed By: #### BNP, CMP, LIPA #### [facility] [address] [address] [address] Sam Balderrama AST [Catalytic activity/Vol] 24 U/L Normal 15-37 [facility] Comment on above: Performed By: #### BNP, CMP, LIPA #### [facility] [address] [address] [address] Sam Balderrama Bilirubin [Mass/Vol] 0.9 mg/dL Normal 0.2-1.0 [facility] Comment on above: Performed By: #### BNP, CMP, LIPA #### [facility] [address] [address] [address] Sam Balderrama Calcium [Mass/Vol] 9.2 mg/dL Normal 8.5-10.1 [facility] Comment on above: Performed By: #### BNP, CMP, LIPA #### [facility] [address] [address] [address] Sam Balderrama Chloride [Moles/Vol] 95 mmol/L Critically low 98-107 [facility] Comment on above: Performed By: #### BNP, CMP, LIPA #### [facility] [address] [address] [address] Sam Balderrama CO2 [Moles/Vol] 28.9 mmol/L Normal 21.0-32.0 [facility] Comment on above: Performed By: #### BNP, CMP, LIPA #### [facility] [address] [address] [address] Sam Balderrama Creatinine [Mass/Vol] 1.23 mg/dL Critically high 0.55-1.02 [facility] Comment on above: Performed By: #### BNP, CMP, LIPA #### [facility] [address] [address] [address] Sam Balderrama EGFR-AF TRISTANIAN 51 mL/min/1.73m2 Critically low >=60 [facility] Comment on above: Performed By: #### BNP, CMP, LIPA #### [facility] [address] [address] [address] Sam Balderrama EGFR-NON AF TRISTANIAN 42 mL/min/1.73m2 Critically low >=60 [facility] Comment on above: Performed By: #### BNP, CMP, LIPA #### [facility] [address] [place] [address] Dr. Sam Balderrama Globulin (S) [Mass/Vol] 3.2 g/dL Normal [facility] Comment on above: Performed By: #### BNP, CMP, LIPA #### [facility] [address] [place] [address] Dr. Sam Balderrama Glucose [Mass/Vol] 204 mg/dL Critically high 74-106 [facility] Comment on above: Performed By: #### BNP, CMP, LIPA #### [facility] [address] [place] [address] Dr. Sam Balderrama Potassium [Moles/Vol] 4.1 mmol/L Normal 3.5-5.1 [facility] Comment on above: Performed By: #### BNP, CMP, LIPA #### [facility] [address] [place] [address] Dr. Sam Balderrama Protein [Mass/Vol] 7.0 g/dL Normal 6.4-8.2 [facility] Comment on above: Performed By: #### BNP, CMP, LIPA #### [facility] [address] [place] [address] Dr. Sam Balderrama Sodium [Moles/Vol] 133 mmol/L Critically low 136-145 [facility] Comment on above: Performed By: #### BNP, CMP, LIPA #### [facility] [address] [place] [address] Dr. Sam Balderrama Urea nitrogen [Mass/Vol] 32.0 mg/dL Critically high 7.0-18.0 [facility] Comment on above: Performed By: #### BNP, CMP, LIPA #### [facility] [address] [place] [address] Dr. Sam Balderrama Urea nitrogen/Creatin ine [Mass ratio] 26.0 mg/mg Normal [facility] Comment on above: Performed By: #### BNP, CMP, LIPA #### [facility] [address] [place] [address] Dr. Sam Balderrama URINE MICROSCOPIC ONLYon BACTERIA TRACE Abnormal NONE SEEN [facility] Comment on above: Performed By: #### A1C #### [facility] [address] [place] [address] Dr. Sam Balderrama Bacteria identified Cx Nom (U) INDICATED Normal [facility] Comment on above: Performed By: #### A1C #### [facility] [address] [place] [address] Dr. Sam Balderrama CAST SEEN Abnormal NONE SEEN [facility] Comment on above: Performed By: #### A1C #### [facility] [address] [place] [address] Dr. Sam Balderrama Crystals LM Nom (Urine sed) NONE SEEN Normal NONE SEEN [facility] Comment on above: Performed By: #### A1C #### [facility] [address] [place] [address] Dr. Sam Balderrama Epithelial cells LM Ql (Urine sed) MODERATE Abnormal NONE SEEN /RARE [facility] Comment on above: Performed By: #### A1C #### [facility] [address] [place] [address] Dr. Sam Balderrama MUCOUS NONE SEEN Normal NONE SEEN [facility] Comment on above: Performed By: #### A1C #### [facility] [address] [place] [address] Dr. Sam Balderrama RBC 0-2 Normal 0-2 [facility] Comment on above: Performed By: #### A1C #### [facility] [address] [place] [address] Dr. Sam Balderrama WBC 2-5 Abnormal NONE SEEN [facility] Comment on above: Performed By: #### A1C #### [facility] [address] [place] [address] Dr. Sam Balderrama XR CHEST 1 Von [...] CELIA WALTON Date: 2022-01-04 21:03 Normal [facility] BNPon 12-26-2021 Natriuretic peptide B (Bld) [Mass/Vol] 266.0 pg/mL Normal <=1,800.0 [facility] Comment on above: Performed By: #### BMP, HSTROPN, BNP ### # [facility] [address] [place] [address] Dr. Sam Balderrama CBC AUTO DIFFon 12-26-2021 BASO # 0.0 103/ul Normal 0.0-0.1 [facility] Comment on above: Performed By: #### CBC #### [facility] [address] [place] [address] Dr. Sam Balderrama Basophils/100 WBC (Bld) 0.4 % Normal 0.2-2.0 [facility] Comment on above: Performed By: #### CBC #### [facility] [address] [place] [address] Dr. Sam Balderrama EO # 0.0 103/ul Normal 0.0-0.7 [facility] Comment on above: Performed By: #### CBC #### [facility] [address] [place] [address] Dr. Sam Balderrama Eosinophils/100 WBC (Bld) 0.0 % Critically low 0.9-7.0 [facility] Comment on above: Performed By: #### CBC #### [facility] [address] [place] [address] Dr. Sam Balderrama Erythrocyte distribution width (RBC) [Ratio] 12.5 % Normal 11.0-15.0 [facility] Comment on above: Performed By: #### CBC #### [facility] [address] [place] [address] Dr. Sam Balderrama Hematocrit (Bld) [Volume fraction] 38.0 % Normal 36.0-48.0 [facility] Comment on above: Performed By: #### CBC #### [facility] [address] [place] [address] Dr. Sam Balderrama Hemoglobin (Bld) [Mass/Vol] 12.4 g/dL Normal 12.0-16.0 [facility] Comment on above: Performed By: #### CBC #### [facility] [address] [place] [address] Dr. Sam Balderrama IG # 0.03 10e3/ul Normal 0.00-0.03 [facility] Comment on above: Performed By: #### CBC #### [facility] [address] [place] [address] Dr. Sam Balderrama IG % 0.4 % Normal 0.0-0.5 [facility] Comment on above: Performed By: #### CBC #### [facility] [address] [place] [address] Dr. Sam Balderrama LYMPH # 0.8 103/ul Critically low 1.2-3.8 [facility] Comment on above: Performed By: #### CBC #### [facility] [address] [place] [address] Dr. Sam Balderrama Lymphocytes/100 WBC (Bld) 10.9 % Critically low 20.5-60.0 [facility] Comment on above: Performed By: #### CBC #### [facility] [address] [place] [address] Dr. Sam Balderrama MANUAL DIFF REQ NO Normal [facility] Comment on above: Performed By: #### CBC #### [facility] [address] [place] [address] Dr. Sam Balderrama MCH (RBC) [Entitic mass] 30.8 pg Normal 26.7-34.0 [facility] Comment on above: Performed By: #### CBC #### [facility] [address] [place] [address] Dr. Sam Balderrama MCHC (RBC) [Mass/Vol] 32.6 g/dL Normal 29.9-35.2 [facility] Comment on above: Performed By: #### CBC #### [facility] [address] [place] [address] Dr. Sam Balderrama MCV (RBC) [Entitic vol] 94.3 fL Normal 81.0-99.0 [facility] Comment on above: Performed By: #### CBC #### [facility] [address] [place] [address] Dr. Sam Balderrama MONO # 0.7 103/ul Normal 0.3-0.8 [facility] Comment on above: Performed By: #### CBC #### [facility] [address] [place] [address] Dr. Sam Balderrama Monocytes/100 WBC (Bld) 9.6 % Normal 1.7-12.0 [facility] Comment on above: Performed By: #### CBC #### [facility] [address] [place] [address] Dr. Sam Balderrama NEUT # 5.5 103/ul Normal 1.4-6.5 [facility] Comment on above: Performed By: #### CBC #### [facility] [address] [place] [address] Dr. Sam Balderrama Neutrophils/100 WBC (Bld) 78.7 % Critically high 43.0-75.0 [facility] Comment on above: Performed By: #### CBC #### [facility] [address] [place] [address] Dr. Sam Balderrama Platelet mean volume (Bld) [Entitic vol] 10.2 fL Normal 9.5-13.5 [facility] Comment on above: Performed By: #### CBC #### [facility] [address] [place] [address] Dr. Sam Balderrama PLT 227 103/ul Normal 150-450 [facility] Comment on above: Performed By: #### CBC #### [facility] [address] [place] [address] Dr. Sam Balderrama RBC 4.03 106/ul Critically low 4.20-5.40 [facility] Comment on above: Performed By: #### CBC #### [facility] [address] [place] [address] Dr. Sam Balderrama WBC 7.0 103/ul Normal 4.0-11.0 [facility] Comment on above: Performed By: #### CBC #### [facility] [address] [place] [address] Dr. Sam Balderrama INFLUENZA A AND B AGon 12-26 INFLUANE SEE BELOW Normal [facility] Comment on above: Result Comment: Negative for Flu A prote in angiten. Infection due to Flu A cannot be ruled out. Flu A angiten in the sample may be below the detection limit of the test. Performed By: #### A 1C #### [facility] [address] [place] [address] Dr. Sam Balderrama INFLUBNEGH SEE BELOW Normal [facility] Comment on above: Result Comment: Negative for Flu B prote in antigen. Infection due to Flu B cannot be ruled out. Flu B antigen in the sample may be below the detection limit of the test. Performed By: #### A 1C #### [facility] [address] [place] [address] Dr. Sam Balderrama INFLUENZA A AG Negative Normal NEGATIVE SEE COMMENT [facility] Comment on above: Performed By: #### A1C #### [facility] [address] [place] [address] Dr. Sam Balderrama INFLUENZA B AG Negative Normal NEGATIVE SEE COMMENT [facility] Comment on above: Performed By: #### A1C #### [facility] [address] [place] [address] Dr. Sam Balderrama INTERNAL CONTROLS Within Normal Limits Normal Within Normal Limits [facility] Comment on above: Performed By: #### A1C #### [facility] [address] [place] [address] Dr. Sam Balderrama PROF CHEM 8 (BAS METB)on Anion gap [Moles/Vol] 10.9 mmol/L Normal [facility] Comment on above: Performed By: #### BNP, CMP, LIPA #### [facility] [address] [place] [address] Dr. Sam Balderrama Calcium [Mass/Vol] 9.1 mg/dL Normal 8.5-10.1 [facility] Comment on above: Performed By: #### BNP, CMP, LIPA #### [facility] [address] [address] [address] Sam Balderrama Chloride [Moles/Vol] 102 mmol/L Normal 98-107 [facility] Comment on above: Performed By: #### BNP, CMP, LIPA #### [facility] [address] [address] [address] Sam Balderrama CO2 [Moles/Vol] 29.5 mmol/L Normal 21.0-32.0 [facility] Comment on above: Performed By: #### BNP, CMP, LIPA #### [facility] [address] [address] [address] Sam Balderrama Creatinine [Mass/Vol] 0.99 mg/dL Normal 0.55-1.02 [facility] Comment on above: Performed By: #### BNP, CMP, LIPA #### [facility] [address] [address] [address] Sam Balderrama EGFR-AF TRISTANIAN >60 Normal >=60 [facility] Comment on above: Performed By: #### BNP, CMP, LIPA #### [facility] [address] [address] [address] Sam Balderrama EGFR-NON AF TRISTANIAN 54 mL/min/1.73m2 Critically low >=60 [facility] Comment on above: Performed By: #### BNP, CMP, LIPA #### [facility] [address] [address] [address] Sam Balderrama Glucose [Mass/Vol] 193 mg/dL Critically high 74-106 [facility] Comment on above: Performed By: #### BNP, CMP, LIPA #### [facility] [address] [address] [address] Sam Balderrama Potassium [Moles/Vol] 3.4 mmol/L Critically low 3.5-5.1 [facility] Comment on above: Performed By: #### BNP, CMP, LIPA #### [facility] [address] [address] [address] Sam Balderrama Sodium [Moles/Vol] 139 mmol/L Normal 136-145 [facility] Comment on above: Performed By: #### BNP, CMP, LIPA #### [facility] [address] [address] [address] Sam Balderrama Urea nitrogen [Mass/Vol] 15.0 mg/dL Normal 7.0-18.0 [facility] Comment on above: Performed By: #### BNP, CMP, LIPA #### [facility] [address] [address] [address] Sam Balderrama Urea nitrogen/Creatin ine [Mass ratio] 15.2 mg/mg Normal [facility] Comment on above: Performed By: #### BNP, CMP, LIPA #### [facility] [address] [address] [address] Sam Balderrama TROPONIN, HIGH SENSITIVITYon 12-26-2021 HSTROP 11.1 pg/mL Normal 4.0-51.3 [facility] Comment on above: Result Comment: CUT-OFF POINTS HAVE BEEN ESTABLISHED BASED ON THE FOURTH UNIVERSAL DEFINITIONS OF MYOCARDIAL INFARCTION. THE UPPER REFERENCE LIMIT (URL) OF TROPONIN, DEFINED THE 99TH PERCENTILE OF cTnI DISTRIBUTION IN A REFERENCE POPULATION, HAS BEEN CONFIRMED THE DECISION THRESHOLD FOR [place] DIAGNOSIS. Performed By: #### B NETWORK FIREWALL ENGINEER, CMP, LIPA #### [facility] [address] [address] [address] Sam Balderrama XR CHEST 1 Von [...] JAZZ MASON Date: 2021-12-26 16:51 Normal [facility] Covid-19 PCR (CVDTBH)on 12-09 SARS-CoV-2 (COVID-19) RNA MANNY+probe Ql (Unsp spec) Detected Critically abnormal NOT DETECTED [facility] Comment on above: Result Comment: This test is not yet jose roved or cleared by the [place] FDA. When there are no FDA-approved or cleared tests available, and other criteria are met, FDA can make tests available under an emergency access mechanism called an Emergency Use Authorization (EUA). The EUA for this test is supported by the Cool of Health and Human Service's (HHS's) declaration [...] longer be used). Performed By: #### C [facility] #### [facility] [address] [place] [address] Dr. Sam Balderrama Discharge Summaryon 09-19-19 Discharge Summary MR#: [id number] Admitted: 09/15/2017 [...] inversion. Therefore,the patient was taken to the dental laboratory technician the next day. Her dental laboratory technician showednonobstructive coronary angiograms. The left [...] be additional documentation fromme. Date Dict: 09/18/2017/02:27 P/Sebastian Boyer, MDDate Trans: 09/19/2017 11:34 A/[id number]_JN:[id number]: Ruiz Yee D.O. [address] [place] [phone] [place] [facility] POC GLUCOSE LABon 09-18-2017 Glucose mass conc 181 mg/dL High 70-100 [facility] Comment on above: Performed By: #### [id number], [id number], [id number] # ###[address] Cardiovascular Lab Reporton 09-17-2017 Cardiovascular Lab Report [facility] Patient Name: rAiadna Copeland [facility] MR #: [id number] Physician: Micki Bro,Department of M.D.Medicine Service Date: 09/16/2017Division of Birthdate: 1945ardiology Room #: 3AB [id number] [phone] Fax Cardiovascular Laboratory ReportFINAL IMPRESSION:Normal epicardial coronary [...] sheath was placed and then we used 5-Indonesian JR5,JL3.5, JL4, ultimate an XB LT 3.5-Indonesian guide to engage the left coronaryostium. We were able to engage with 4-Indonesian JL4 angiography wasperformed. After that, we wanted [...] ostial 40% stenosis, but no damping with 5-Indonesian catheters. This is the dominant vessel.Electronically Signed by:Micki Bro M.D. 09/23/2017 12:56 P Micki Bro M.D.Date Dict: 09/16/2017/10:16 Ira/Micki Bro M.D.Date Trans: 09/17/2017 07:11 A/Amparo_JN:[id number]: Ruiz Yee D.O. [address] [place] [phone] Normal [facility] POC GLUCOSE LABon 09-17-2017 Glucose mass conc 210 mg/dL High 70-100 [facility] Comment on above: Performed By: #### 52591, 59842, 71769 # ###[facility] [place] [address], [place] Glucose mass conc 128 mg/dL High 70-100 [facility] Comment on above: Performed By: #### 13567, 31968, 39744 # ###[facility] [place] [address], [place] Glucose mass conc 193 mg/dL High 70-100 [facility] Comment on above: Performed By: #### 95843, 51216, 22884 # ###[facility] [place] [address], [place] Glucose mass conc 162 mg/dL High 70-100 [facility] Comment on above: Performed By: #### 47086, 35473, 29229 # ###[facility] [place] [address], [place] BASIC METABOLIC PANELon Calcium 9.5 mg/dL Normal 8.6-10.3 [facility] Comment on above: Order Comment: No: Do not add to previou s draw Performed By: #### 0 0071, 23815, 30957 ####[facility] [place] [address], [place] Chloride 101 mmol/L Normal 98-107 [facility] Comment on above: Order Comment: No: Do not add to previou s draw Performed By: #### 0 0071, 77462, 26507 ####[facility] [place] [address], [facility] CO2 28 mmol/L Normal 21-31 [facility] Comment on above: Order Comment: No: Do not add to previou s draw Performed By: #### 0 0071, 53919, 47295 ####[facility] [facility] [place] [place] [address], [facility] Creatinine 1.04 mg/dL Normal 0.60-1.20 [facility] Comment on above: Order Comment: No: Do not add to previou s draw Performed By: #### 0 0071, 44299, 40362 ####[facility] eGFR (black) mL/min/{1.73_m2} Normal >60 [facility] Comment on above: Order Comment: No: Do not add to previou s draw Result Comment: Calc ulation may not be valid for patients over 70 years Performed By: #### 0 0071, 32988, 41154 ####[facility] [facility] [place] [address], [facility] eGFR (non-black) 52 ml/min/1.73sq m Abnormal >60 [facility] Comment on above: Order Comment: No: Do not add to previou s draw Result Comment: Calc ulation may not be valid for patients over 70 years Performed By: #### 0 0071, 10256, 62597 ####[facility] [place] [address], [facility] Glucose mass conc 215 mg/dL High 70-100 [facility] Comment on above: Order Comment: No: Do not add to previou s draw Performed By: #### 0 0071, 37600, 97802 ####[facility] [place] [address], [facility] Potassium molar conc 4.3 mmol/L Normal 3.5-5.1 [facility] Comment on above: Order Comment: No: Do not add to previou s draw Performed By: #### 0 0071, 63776, 48705 ####[facility] [place] [address], [facility] Sodium 138 mmol/L Normal 136-145 [facility] Comment on above: Order Comment: No: Do not add to previou s draw Performed By: #### 0 0071, 58810, 85346 ####[facility] Urea nitrogen 20 mg/dL Normal 7-25 [facility] Comment on above: Order Comment: No: Do not add to previou s draw Performed By: #### 0 0071, 45737, 22741 ####[facility] CBC COMPLETE BLOOD COUNTon 0 - Erythrocyte distribution width Auto Ratio (RBC) 12.8 % Normal 11.5-15.0 [facility] Comment on above: Order Comment: No: Do not add to previou s draw Performed By: #### 5 0608 ####[facility] [place] [address], [facility] Erythrocytes (RBC) 3.71 10*6/uL Low 3.80-5.00 [facility] Comment on above: Order Comment: No: Do not add to previou s draw Performed By: #### 5 0608 ####[facility] [place] [address], [facility] Erythrocytes (RBC) 0 % Normal 0-0 [facility] Comment on above: Order Comment: No: Do not add to previou s draw Performed By: #### 5 0608 ####[facility] Hematocrit (HCT) 34.1 % Low 36.0-45.0 [facility] Comment on above: Order Comment: No: Do not add to previou s draw Performed By: #### 5 0608 ####[facility] Hemoglobin mass conc (Bld) 11.6 g/dL Low 12.0-15.0 [facility] Comment on above: Order Comment: No: Do not add to previou s draw Performed By: #### 5 0608 ####[facility] MCH 31.3 pg Normal 27.0-33.0 [facility] Comment on above: Order Comment: No: Do not add to previou s draw Performed By: #### 5 0608 ####[facility] MCHC mass conc (RBC) 34.0 g/dL Normal 32.0-35.0 [facility] Comment on above: Order Comment: No: Do not add to previou s draw Performed By: #### 5 0608 ####[facility] MCV 91.9 fL Normal 82.0-98.0 [facility] Comment on above: Order Comment: No: Do not add to previou s draw Performed By: #### 5 0608 ####[facility] [place] [address], [facility] PLAT CNT 245 10*3/uL Normal 150-400 [facility] Comment on above: Order Comment: No: Do not add to previou s draw Performed By: #### 5 0608 ####[facility] WBC (Leukocytes) 10.8 10*3/uL High 4.0-10.6 [facility] Comment on above: Order Comment: No: Do not add to previou s draw Performed By: #### 5 0608 ####[address] HEMOGLOBIN A1Con 09-16-2017 Glucose mass conc 189 mg/dL High 70-126 [facility] Comment on above: Order Comment: Yes: Add to Previous draw if abledraw with UFH at 3am per RN NadaSS Performed By: #### 0 0071, 24110, 80705 ####[address] Hemoglobin A1c/Hemoglobin.t otal mass fraction (Bld) 8.2 % High 4.0-6.0 [facility] Comment on above: Order Comment: Yes: Add to Previous draw if abledraw with UFH at 3am per RN NadaSS Performed By: #### 0 0071, 66258, 97329 ####[address] History and Physicalon 09-16 History and Physical MR#: [id number] Ariadna Copeland Admitted: 09/15/2017 Date of : 1945 Attending Physician: JESSICA Ramirez MD Room #: 3AB [id number] Discharge Date: HISTORY AND PHYSICALCHIEF COMPLAINT: Chest [...] on-call was called.Case was discussed with the hospice fellow who recommended to continueon heparin and nitro drip, repeat troponin every 6 hours. During theinterview, the patient is complaining of chest pain while she was talking.Also during the interview, case monitor showed the patient had multiplePVCs. hospice fellow was called and updated about the new [...] levothyroxine 75 mcg, lisinopril with hydrochlorothiazide , [id number] mg daily.SOCIAL HISTORY: The patient denies smoking, [...] 1.01. White blood cells 10.4, hemoglobin 12.9, [id number]. Troponin 1.87. Glucose 199, creatinine 1.17, potassium 3.5.ASSESSMENT:1. Chest pain, most likely due to [id number] myocardial infarction.2. Sva-TH-zvyyitjuf myocardial infarction.3. Essential hypertension.4. Hyperglycemia, rule out [...] by:JESSICA Ramirez MD 09/16/2017 04:13 A __[facility] KRISTAN Jefferyate Dict: 09/15/2017/11:08 P/[facility] KRISTAN Jefferyate Trans: 09/15/2017 11:49 [id number] Normal [facility] MAGNESIUM BLOODon 09-16-2017 Magnesium 2.0 mg/dL Normal 1.9-2.7 [facility] Comment on above: Order Comment: No: Do not add to previou s draw Performed By: #### 0 0071, 63548, 80866 ####[facility] [place] [address], [facility] PHOSPHORUS BLOODon 8 Phosphate 3.8 mg/dL Normal 2.5-5.0 [facility] Comment on above: Order Comment: No: Do not add to previou s draw Performed By: #### 4 1000, 41827, 01234, 25554 ####[facility] [place] [address], [place] POC GLUCOSE LABon 09-16-2017 Glucose mass conc 236 mg/dL High 70-100 [facility] Comment on above: Performed By: #### 94655, 59019, 28748 # ###[facility] [place] [address], [place] Glucose mass conc 140 mg/dL High 70-100 [facility] Comment on above: Performed By: #### 88601, 21342, 63771 # ###[facility] [place] [address], [place] Glucose mass conc 156 mg/dL High 70-100 [facility] Comment on above: Performed By: #### 36091, 05384, 68681 # ###[facility] [place] [address], [place] Glucose mass conc 152 mg/dL High 70-100 [facility] Comment on above: Performed By: #### 53428, 24797, 82396 # ###[facility] PROTHROMBIN TIMEon 8 INR Coag RelTime (PPP) 1.07 {INR} Normal 0.91-1.16 [facility] Comment on above: Result Comment: ACC RECOMMENDED INR FO R WARFARIN THERAPY CONDITION INRPROPHYLAXIS OF VENOUS THROMBOSIS 2-3(HIGH-RISK SURGERY)TREATMENT OF VENOUS THROMBOSIS 2-3TREATMENT OF PULMONARY EMBOLISM 2-3PREVENTION OF SYSTEMIC EMBOLISM: 2-3 ACUTE MYOCARDIAL INFARCTION TISSUE HEART VALVES VALVULAR HEART DISEASE ATRIAL FIBRILLATION RECURRENT SYSTEMIC EMBOLISMMECHANICAL HEART VALVE 2.5-3.5 FROM: ORAL ANTICOAGULANTS. MECHANISM OF ACTION, CLINICALEFFECTIVENESS, AND OPTIMAL THERAPEUTIC RANGE. [id number];108:231S-246S. Performed By: #### 0 0071, 27290, 61162 ####[facility] Prothrombin time (PT) Coag time (PPP) 13.9 s Normal 12.3-14.8 [facility] Comment on above: Result Comment: ALL RESULTS MUST BE INTE RPRETED WITH RESPECT TO BLOOD DRAWING ARTIFACTOR DILUTION ERROR OF ANTICOAGULANT AT THE TIME OF SAMPLING. Performed By: #### 0 0071, 11433, 61667 ####[facility] TROPONIN-Ion 09-16-2017 Troponin I.cardiac mass conc 1.75 ng/mL Critically high 0.00-0.04 [facility] Comment on above: Result Comment: REFERENCE RANGES: 0.00 - 0.04 ng/ml NORMAL 0.05 - 0.50 ng/ml INDETERMINATE > 0.50 ng/ml CONSISTENT WITH AN M.I. Performed By: #### 0 0071, 02599, 53801 ####[facility] [facility].[address] UFH HEPARIN ASSAYon 09-16-19 18 UNFRACTIONATED HEPARIN 0.39 IU/mL Normal 0.30-0.70 [facility] Comment on above: Result Comment: Rivaroxaban and Apixaban will interfere with the anti Xa assay used tomonitor UFH and LMWH. Performed By: #### 0 0071, 30472, 12573 ####[facility] [facility].[address] UNFRACTIONATED HEPARIN 0.52 IU/mL Normal 0.30-0.70 [facility] Comment on above: Result Comment: Rivaroxaban and Apixaban will interfere with the anti Xa assay used tomonitor UFH and LMWH. Performed By: #### 0 0071, 04377, 59118 ####[facility] [facility].[address] APTTon 09-15-2017 aPTT 30.5 s Normal 25.0-35.0 [facility] Comment on above: Result Comment: ALL [...] THIS PURPOSE. Performed By: #### 5 7307, 03194, 53921 ####[facility] [facility].[address] BASIC METABOLIC PANELon Calcium 9.8 mg/dL Normal 8.6-10.3 [facility] Comment on above: Performed By: #### 71198, 25780, 82662 # ###[facility] [place] [address], [facility] Chloride 99 mmol/L Normal 98-107 [facility] Comment on above: Performed By: #### 20787, 01485, 08865 # ###[facility] [place] [address], [facility] CO2 28 mmol/L Normal 21-31 [facility] Comment on above: Performed By: #### 99084, 01823, 25955 # ###[facility] [place] [address], [facility] Creatinine 1.17 mg/dL Normal 0.60-1.20 [facility] Comment on above: Performed By: #### 11399, 29323, 61943 # ###[facility] [place] [address], [facility] eGFR (black) 55 ml/min/1.73sq m Abnormal >60 [facility] Comment on above: Result Comment: Calculation may not be v alid for patients over 70 years Performed By: #### 0 0071, 71336, 66554 ####[facility] [place] [address], [facility] eGFR (non-black) 45 ml/min/1.73sq m Abnormal >60 [facility] Comment on above: Result Comment: Calculation may not be v alid for patients over 70 years Performed By: #### 0 0071, 83017, 83043 ####[facility] [place] [address], [facility] Glucose mass conc 199 mg/dL High 70-100 [facility] Comment on above: Performed By: #### 85754, 06873, 17638 # ###[facility] Potassium molar conc 3.5 mmol/L Normal 3.5-5.1 [facility] Comment on above: Performed By: #### 04847, 28438, 62287 # ###[address] Sodium 138 mmol/L Normal 136-145 [facility] Comment on above: Performed By: #### 38025, 38707, 32832 # ###[address] Urea nitrogen 21 mg/dL Normal 7-25 [facility] Comment on above: Performed By: #### 13897, 17815, 00241 # ###[address] CBC W/DIFFon 09-15-2017 ABS BASOPHILS 0.1 10*3/uL Normal 0.0-0.2 [facility] Comment on above: Performed By: #### 80178 ####[address] ABS IMM GRANS 0.1 10*3/uL Normal 0.0-0.2 [facility] Comment on above: Performed By: #### 03612 ####[address] Basophils Auto #/vol (Bld) 0.5 % Normal 0.0-1.0 [facility] Comment on above: Performed By: #### 43210 ####[address] Eosinophils 0.1 10*3/uL Normal 0.0-0.5 [facility] Comment on above: Performed By: #### 05619 ####[address] Eosinophils/100 leukocytes 1.1 % Normal 0.0-6.0 [facility] Comment on above: Performed By: #### 37254 ####[facility] [facility].[address] Erythrocyte distribution width Auto Ratio (RBC) 12.6 % Normal 11.5-15.0 [facility] Comment on above: Performed By: #### 95506 ####[facility] [facility].[address] Erythrocytes (RBC) 4.18 10*6/uL Normal 3.80-5.00 [facility] Comment on above: Performed By: #### 05236 ####[facility] [facility].[address] Erythrocytes (RBC) 0 % Normal 0-0 [facility] Comment on above: Performed By: #### 09784 ####[facility] [facility].[address] Hematocrit (HCT) 38.3 % Normal 36.0-45.0 [facility] Comment on above: Performed By: #### 06319 ####[facility] [facility].[address] Hemoglobin mass conc (Bld) 12.9 g/dL Normal 12.0-15.0 [facility] Comment on above: Performed By: #### 50250 ####[facility] [facility].[address] IMMATURE GRANS 1.0 % Normal 0.0-1.0 [facility] Comment on above: Performed By: #### 45633 ####[facility] [facility].[address] Lymphocytes 1.9 10*3/uL Normal 1.2-4.0 [facility] Comment on above: Performed By: #### 39800 ####[facility] [place] [address], [facility] Lymphocytes/100 leukocytes 18.7 % Low 20.0-45.0 [facility] Comment on above: Performed By: #### 97977 ####[facility] [place] [address], [facility] MCH 30.9 pg Normal 27.0-33.0 [facility] Comment on above: Performed By: #### 38517 ####[facility] [facility] MCHC mass conc (RBC) 33.7 g/dL Normal 32.0-35.0 [facility] Comment on above: Performed By: #### 59426 ####[facility] [facility].[address] MCV 91.6 fL Normal 82.0-98.0 [facility] Comment on above: Performed By: #### 40463 ####[facility] [facility] [place] [address], [facility] Monocytes 0.6 10*3/uL Normal 0.1-1.0 [facility] Comment on above: Performed By: #### 54330 ####[facility] [facility] [place] [address], [facility] MONOS 6.0 % Normal 5.0-12.0 [facility] Comment on above: Performed By: #### 14424 ####[facility] [facility] [place] [address], [facility] Neutrophils 7.5 10*3/uL Normal 1.6-7.6 [facility] Comment on above: Performed By: #### 86514 ####[facility] [facility] [place] [address], [facility] Neutrophils/100 leukocytes 72.7 % High 40.0-72.0 [facility] Comment on above: Performed By: #### 15968 ####[facility] [place] [address], [facility] PLAT CNT 265 10*3/uL Normal 150-400 [facility] Comment on above: Performed By: #### 29405 ####[facility] [place] [address], [facility] WBC (Leukocytes) 10.4 10*3/uL Normal 4.0-10.6 [facility] Comment on above: Performed By: #### 18304 ####[facility] LIPID PROFILEon 09-15-2017 Cholesterol 176 mg/dL Normal 120-200 [facility] Comment on above: Result Comment: CHOLESTEROL REFERENCE RA NGE:20 YEARS AND OLDER CARDIOVASCULAR RISKLess than 200 mg/dl Low Pykr387 to 239 mg/dl Borderline Xujw325 mg/dl and greater High Risk Performed By: #### 0 0071, 96181, 68403 ####[facility] Cholesterol to HDL Ratio 3.0 {ratio} Normal .0-4.5 [facility] Comment on above: Performed By: #### 83202, 63934, 58339 # ###[facility] HDL Cholesterol 59 mg/dL Normal 23-92 [facility] Comment on above: Result Comment: Slight variation in norm al range could be due to gender and/or age.HDL CHOLESTEROL REFERENCE RANGE:20 years and older Cardiovascular Risk> or =60 mg/dL [id number] TO 59 mg/dL Low Risk<40 mg/dL High Risk Performed By: #### 0 0071, 61548, 31236 ####[facility] [place] [address], [facility] LDL Cholesterol 73 mg/dL Normal 0-130 [facility] Comment on above: Result Comment: LDL IS A CALCULATIONLDL IS ONLY VALID IF THE TRIG IS LESS THAN 400. Performed By: #### 0 0071, 83072, 48599 ####[place] [address] NON-HDL CHOLESTEROL 117 mg/dL Normal [facility] Comment on above: Performed By: #### 36102, 31380, 98930 # ###[place] [address] Triglyceride 219 mg/dL High 40-149 [facility] Comment on above: Result Comment: TRIGLYCERIDE REFERENCE R RAAD:20 YEARS AND OLDER CARDIOVASCULAR RISKLESS THAN 150 mg/dl LOW [id number] TO 199 mg/dl BORDERLINE [id number] mg/dl AND GREATER HIGH RISK Performed By: #### 0 0071, 37436, 03975 ####[place] [address] VLDL CHOL 44 mg/dL High 0-40 [facility] Comment on above: Performed By: #### 18772, 97806, 20083 # ###[address] PORTABLE CHEST 1 VIEWon PORTABLE CHEST 1 VIEW [facility] [place] [address] Patient Name: ARIADNA COPELAND : 1945Sex: FAge: Race: WhiteMRN: [id number]. Location: EMERPatient Status: IVisit #: [id number] Date: 09/15/2017 8:15:00 PMCompleted Date: 09/15/2017 08:23 PMRequesting Provider: MICKEY YU Attending Provider: MICKEY YU Report Copy To: Signs & Symptoms: Chest PainHistory: Patient history not availableComments: R/O PneumoniaExam: PORTABLE CHEST 1 VIEWAccession #: [id number] PORTABLE CHEST 1 VIEW 09/15/2017 8:23 PM [...] findings. Electronically signed by:Neeru Lane. Transcribed by: [email or web address], User Resident: WALKER BARNARDElectronically Signed by: NEERU LANE @ 09/16/2017 10:35 AMI personally read this/these film(s) with this resident Normal [facility] Comment on above: Order Comment: R/O Pneumonia PROTHROMBIN TIMEon 8 INR Coag RelTime (PPP) 1.01 {INR} Normal 0.91-1.16 [facility] Comment on above: Result Comment: ACCCP RECOMMENDED INR FO R WARFARIN THERAPY CONDITION INRPROPHYLAXIS OF VENOUS THROMBOSIS 2-3(HIGH-RISK SURGERY)TREATMENT OF VENOUS THROMBOSIS 2-3TREATMENT OF PULMONARY EMBOLISM 2-3PREVENTION OF SYSTEMIC EMBOLISM: 2-3 ACUTE MYOCARDIAL INFARCTION TISSUE HEART VALVES VALVULAR HEART DISEASE ATRIAL FIBRILLATION RECURRENT SYSTEMIC EMBOLISMMECHANICAL HEART VALVE 2.5-3.5 FROM: ORAL ANTICOAGULANTS. MECHANISM OF ACTION, CLINICALEFFECTIVENESS, AND OPTIMAL THERAPEUTIC RANGE. [id number];108:231S-246S. Performed By: #### 5 7307, 13100, 06016 ####[facility] Prothrombin time (PT) Coag time (PPP) 13.3 s Normal 12.3-14.8 [facility] Comment on above: Result Comment: ALL RESULTS MUST BE INTE RPRETED WITH RESPECT TO BLOOD DRAWING ARTIFACTOR DILUTION ERROR OF ANTICOAGULANT AT THE TIME OF SAMPLING. Performed By: #### 5 7307, 07060, 40800 ####[facility] TROPONIN-Ion 09-15-2017 Troponin I.cardiac mass conc 1.87 ng/mL Critically high 0.00-0.04 [facility] Comment on above: Result Comment: M-CRITICAL RESULT(S) REV IEWED, CALLED TO AND READ BACK BY SANTIAGO RAYGOZA [facility] 5151REFERENCE RANGES: 0.00 - 0.04 ng/ml NORMAL 0.05 - 0.50 ng/ml INDETERMINATE > 0.50 ng/ml CONSISTENT WITH AN M.I. Performed By: #### 0 0071, 74016, 11089 ####[facility] UFH HEPARIN ASSAYon 09-15-19 18 UNFRACTIONATED HEPARIN <0.10 Critically low 0.30-0.70 [facility] Comment on above: Result Comment: Rivaroxaban and Apixaban will interfere with the anti Xa assay used tomonitor UFH and LMWH.RESULTS CHECKED AND CALLED. ACCURATELY READ BACK BY SANTIAGO STOLL RN @ Performed By: #### 5 7307, 48245, 28721 ####[facility] Vital Signs Date Time Vital Sign Value Performing Clinician Facility 03-07-2025 10:33-0400 Body height 162.56 cm Ruiz Ball DO Work Phone: [facility] 03-07-2025 10:33-0400 Body mass index (BMI) [Ratio] 24.1 kg/m2 Ruiz Ball DO Work Phone: [facility] 03-07-2025 10:33-0400 Body weight 63.72 kg Ruiz Billaway DO Work Phone: [facility] 03-07-2025 10:33-0400 Diastolic blood pressure 52 mm[Hg] Ruiz Ball DO Work Phone: [facility] 03-07-2025 10:33-0400 Heart rate 60 /min Ruiz Ball DO Work Phone: [facility] 03-07-2025 10:33-0400 Respiratory rate 12 /min Ruiz Ball DO Work Phone: [facility] 03-07-2025 10:33-0400 SaO2% (BldA) [Mass fraction] 98 % Ruiz Ball DO Work Phone: [facility] 03-07-2025 10:33-0400 Systolic blood pressure 118 mm[Hg] Ruiz Ball DO Work Phone: [facility] 02-21-2025 08:34-0400 Body height 162.56 cm Ruiz Ball DO Work Phone: [facility] 02-21-2025 08:34-0400 Body mass index (BMI) [Ratio] 24.5 kg/m2 Ruiz Ball DO Work Phone: [facility] 02-21-2025 08:34-0400 Body temperature 98.3 [degF] Ruiz Ball DO Work Phone: [facility] 02-21-2025 08:34-0400 Body weight 64.86 kg Ruiz Ball DO Work Phone: [facility] 02-21-2025 08:34-0400 Diastolic blood pressure 64 mm[Hg] Ruiz Ball DO Work Phone: [facility] 02-21-2025 08:34-0400 Heart rate 68 /min Ruiz Ball DO Work Phone: [facility] 02-21-2025 08:34-0400 SaO2% (BldA) [Mass fraction] 96 % Ruiz Ball DO Work Phone: [facility] 02-21-2025 08:34-0400 Systolic blood pressure 122 mm[Hg] Ruiz Ball DO Work Phone: [facility] 02-08-2025 15:44-0400 Body height 162.56 cm Ruiz Ball DO Work Phone: [facility] 02-08-2025 15:44-0400 Body mass index (BMI) [Ratio] 24.3 kg/m2 Ruiz Ball DO Work Phone: [facility] 02-08-2025 15:44-0400 Body weight 64.12 kg Ruiz Ball DO Work Phone: [facility] 02-08-2025 15:44-0400 Diastolic blood pressure 89 mm[Hg] Ruiz Ball DO Work Phone: [facility] 02-08-2025 15:44-0400 Heart rate 61 /min Ruiz Ball DO Work Phone: [facility] 02-08-2025 15:44-0400 Respiratory rate 12 /min Ruiz Ball DO Work Phone: [facility] 02-08-2025 15:44-0400 Systolic blood pressure 139 mm[Hg] Ruiz Ball DO Work Phone: [facility] 10-25-2024 10:39-0400 Body height 162.56 cm [facility] 10-25-2024 10:39-0400 Body mass index (BMI) [Ratio] 24.9 kg/m2 [facility] 10-25-2024 10:39-0400 Body weight 65.77 kg [facility] 10-25-2024 10:39-0400 Diastolic blood pressure 82 mm[Hg] [facility] 10-25-2024 10:39-0400 Heart rate 52 /min [facility] 10-25-2024 10:39-0400 Respiratory rate 12 /min [facility] 10-25-2024 10:39-0400 SaO2% (BldA) [Mass fraction] 100 % [facility] 10-25-2024 10:39-0400 Systolic blood pressure 175 mm[Hg] [facility] 08-24-2024 10:09-0500 Diastolic blood pressure 72 mm[Hg] [employer] [facility] 08-24-2024 10:09-0500 Mean blood pressure 97 mm[Hg] [employer]ry [employer] [facility] 08-24-2024 10:09-0500 Systolic blood pressure 146 mm[Hg] Andry [employer] [facility] 08-24-2024 09:43-0500 Diastolic blood pressure 64 mm[Hg] Andry [employer] [facility] 08-24-2024 09:43-0500 Heart rate 63 /min Andry [employer] [facility] 08-24-2024 09:43-0500 Systolic blood pressure 157 mm[Hg] Andry [employer] [facility] 06-28-2024 13:53-0500 Body height 162.56 cm [facility] 06-28-2024 13:53-0500 Body mass index (BMI) [Ratio] 24.7 kg/m2 [facility] 06-28-2024 13:53-0500 Body weight 65.43 kg [facility] 06-28-2024 13:53-0500 Diastolic blood pressure 82 mm[Hg] [facility] 06-28-2024 13:53-0500 Heart rate 81 /min [facility] 06-28-2024 13:53-0500 Respiratory rate 12 /min [facility] 06-28-2024 13:53-0500 Systolic blood pressure 163 mm[Hg] [facility] 04-30-2024 11:05-0400 Body height 162.56 cm [facility] 04-30-2024 11:05-0400 Body mass index (BMI) [Ratio] 25.1 kg/m2 [facility] 04-30-2024 11:05-0400 Body weight 66.45 kg [facility] 04-30-2024 11:05-0400 Diastolic blood pressure 72 mm[Hg] [facility] 04-30-2024 11:05-0400 Heart rate 62 /min [facility] 04-30-2024 11:05-0400 Respiratory rate 12 /min [facility] 04-30-2024 11:05-0400 Systolic blood pressure 157 mm[Hg] [facility] 04-21-2024 12:11-0400 Body height 162.56 cm [facility] 04-21-2024 12:11-0400 Body mass index (BMI) [Ratio] 24.9 kg/m2 [facility] 04-21-2024 12:11-0400 Body weight 65.88 kg [facility] 04-21-2024 12:11-0400 Diastolic blood pressure 68 mm[Hg] [facility] 04-21-2024 12:11-0400 Heart rate 76 /min [facility] 04-21-2024 12:11-0400 Respiratory rate 12 /min [facility] 04-21-2024 12:11-0400 Systolic blood pressure 184 mm[Hg] [facility] 04-13-2024 11:02-0400 Body height 162.56 cm [facility] 04-13-2024 11:02-0400 Body mass index (BMI) [Ratio] 25.2 kg/m2 [facility] 04-13-2024 11:02-0400 Body weight 66.73 kg [facility] 04-13-2024 11:02-0400 Diastolic blood pressure 89 mm[Hg] [facility] 04-13-2024 11:02-0400 Heart rate 52 /min [facility] 04-13-2024 11:02-0400 Respiratory rate 12 /min [facility] 04-13-2024 11:02-0400 Systolic blood pressure 139 mm[Hg] [facility] 01-07-2024 10:34-0400 Body height 162.56 cm [facility] 01-07-2024 10:34-0400 Body mass index (BMI) [Ratio] 25.4 kg/m2 [facility] 01-07-2024 10:34-0400 Body weight 67.18 kg [facility] 01-07-2024 10:34-0400 Diastolic blood pressure 62 mm[Hg] [facility] 01-07-2024 10:34-0400 Heart rate 76 /min [facility] 01-07-2024 10:34-0400 Respiratory rate 12 /min [facility] 01-07-2024 10:34-0400 Systolic blood pressure 139 mm[Hg] [facility] 09-02-2023 08:56-0500 Diastolic blood pressure 62 mm[Hg] Andry [facility] 09-02-2023 08:56-0500 Heart rate 72 /min Andry [facility] 09-02-2023 08:56-0500 Systolic blood pressure 136 mm[Hg] Andry [facility]CH[facility] 06-30-2023 09:30-0500 Body height 162.56 cm Ruiz Ball Other [employer] Other 06-30-2023 09:30-0500 Body mass index (BMI) [Ratio] 24.34 kg/m2 Ruiz Ball Other [employer] Other 06-30-2023 09:30-0500 Body weight 64.32 kg Ruiz Ball Other [employer] Other 06-30-2023 09:30-0500 Diastolic blood pressure 72 mm[Hg] Ruiz Ball Other [employer] Other 06-30-2023 09:30-0500 Respiratory rate 12 /min Ruiz Ball Other [employer] Other 06-30-2023 09:30-0500 Systolic blood pressure 160 mm[Hg] Ruiz Ball Other [employer] Other 03-27-2023 09:00-0400 Body height 162.56 cm Ruiz Ball Other [employer] [employer] Other 03-27-2023 09:00-0400 Body mass index (BMI) [Ratio] 25.09 kg/m2 Ruiz Ball Other [employer] Other 03-27-2023 09:00-0400 Body weight 66.32 kg Ruiz Ball Other [employer] Other 03-27-2023 09:00-0400 Diastolic blood pressure 62 mm[Hg] Ruiz Ball Other [employer] Other 03-27-2023 09:00-0400 Respiratory rate 12 /min Ruiz Ball Other [employer] Other 03-27-2023 09:00-0400 Systolic blood pressure 150 mm[Hg] Ruiz Ball Other [employer] Other 02-24-2023 11:30-0400 Body height 162.56 cm Ruiz Ball Other [employer] Other 02-24-2023 11:30-0400 Body mass index (BMI) [Ratio] 25.09 kg/m2 Ruiz Ball Other [employer] Other 02-24-2023 11:30-0400 Body weight 66.32 kg Ruiz Ball Other [employer] Other 02-24-2023 11:30-0400 Diastolic blood pressure 74 mm[Hg] Ruiz Ball Other [employer] Other 02-24-2023 11:30-0400 Respiratory rate 12 /min Ruiz Ball Other [employer] Other 02-24-2023 11:30-0400 Systolic blood pressure 173 mm[Hg] Ruiz Ball Other [employer] Other 12-19-2022 10:00-0400 Body height 162.56 cm Ruiz Ball Other [employer] Other 12-19-2022 10:00-0400 Body mass index (BMI) [Ratio] 25.5 kg/m2 Ruiz Ball Other [employer] Other 12-19-2022 10:00-0400 Body weight 67.4 kg Ruiz Ball Other [employer] Other 12-19-2022 10:00-0400 Diastolic blood pressure 71 mm[Hg] Ruiz Ball Other [employer] Other 12-19-2022 10:00-0400 Respiratory rate 12 /min Ruiz Ball Other [employer] Other 12-19-2022 10:00-0400 Systolic blood pressure 133 mm[Hg] Ruiz Ball Other [employer] Other 09-18-2022 10:00-0500 Body height 162.56 cm Ruzi Ball Other [employer] Other 09-18-2022 10:00-0500 Body mass index (BMI) [Ratio] 25.47 kg/m2 Ruiz Ball Other [employer] Other 09-18-2022 10:00-0500 Body weight 67.31 kg Ruiz Ball Other [employer] Other 09-18-2022 10:00-0500 Diastolic blood pressure 70 mm[Hg] Ruiz Ball Other [employer] Other 09-18-2022 10:00-0500 Respiratory rate 12 /min Ruiz Ball Other [employer] Other 09-18-2022 10:00-0500 Systolic blood pressure 130 mm[Hg] Ruiz Ball Other [employer] Other Encounters Encounter Date Encounter Type Care Provider Facility Start: 05-17-2025 End: 05-17-2025 Chase Bell DPM Work Phone: [facility] Start: 05-17-2025 End: 05-17-2025 Chase Bell DPM Work Phone: [facility] Start: 05-17-2025 End: 05-17-2025 Patient encounter procedure Cheikh Bell DPM Work Phone: [facility] Comment on above: Onychomycosis (Prima ry Dx); Pain in both feet; Type II diabetes mellitus with neurological manifestations (HCC) Start: 05-17-2025 End: 05-17-2025 ambulatory CHEIKH BELL Not Available Start: 03-07-2025 End: 03-07-2025 ambulatory Ruiz Yee DO Work Phone: [facility] Work Phone: Start: 03-07-2025 End: 03-07-2025 Patient encounter procedure Ruiz Yee DO -[facility] Work Phone: Start: 02-21-2025 End: 02-21-2025 ambulatory Ruiz Ball DO Work Phone: [facility] Work Phone: Start: 02-21-2025 End: 02-21-2025 Patient encounter procedure Jennifer Garza HOOP ROLLS OPERATOR ELECTROPHYSIOLOGY TECH -[facility] Work Phone: Start: 02-14-2025 End: 02-14-2025 Bamboo flowsheet Cheikh Bell DPM Work Phone: [facility] Start: 02-14-2025 End: 02-14-2025 Bamboo flowsheet Cheikh Bell DPM Work Phone: [facility] Start: 02-14-2025 End: 02-14-2025 Patient encounter procedure Cheikh Bell DPM Work Phone: [facility] Comment on above: Onychomycosis (Prima ry Dx); Pain in both feet; Type II diabetes mellitus with neurological manifestations (HCC); 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) Start: 02-14-2025 End: 02-14-2025 ambulatory CHEIKH BELL Not Available Start: 02-08-2025 End: 02-08-2025 ambulatory Ruiz Ball DO Work Phone: [facility] Work Phone: Start: 02-08-2025 End: 02-08-2025 Patient encounter procedure Ruiz Yee DO -[facility] Work Phone: Start: 12-07-2024 End: 12-07-2024 Bamboo flowsheet Cheikh Bell DPM Work Phone: [facility] Start: 12-07-2024 End: 12-07-2024 Bamboo flowsheet Cheikh Bell DPM Work Phone: [facility] Start: 12-07-2024 End: 12-07-2024 Patient encounter procedure Cheikh Bell DPM Work Phone: [facility] Comment on above: Onychomycosis (Prima ry Dx); Pain in both feet; Type II diabetes mellitus with neurological manifestations (CMS/HCC) Start: 12-07-2024 End: 12-07-2024 ambulatory CHEIKH BELL Not Available Start: 10-25-2024 End: 10-25-[address] [facility] Work Phone: Start: 10-25-2024 End: 10-25-2024 Patient encounter procedure [facility] Work Phone: Start: 10-04-2024 End: 10-04-2024 Bamboo flowsheet Cheikh Bell DPM Work Phone: [facility] Start: 10-04-2024 End: 10-04-2024 Bamboo flowsheet Cheikh Bell DPM Work Phone: [facility] Start: 10-04-2024 End: 10-04-2024 Patient encounter procedure Cheikh Bell DPM Work Phone: [facility] Comment on above: Onychomycosis (Prima ry Dx); Pain in both feet; Type II diabetes mellitus with neurological manifestations (CMS/HCC) Start: 10-04-2024 End: 10-04-2024 ambulatory CHEIKH BELL Not Available Start: 08-24-2024 End: 08-24-2024 ambulatory Andry MCHUGH Facility: [place] Start: 08-24-2024 End: 08-24-2024 Patient encounter procedure Andry Carcamo JEISON [facility] [place] Start: 07-27-2024 End: 07-27-2024 Bamboo flowsheet Cheikh Bell DPM Work Phone: [facility] Start: 07-27-2024 End: 07-27-2024 Bamboo flowsheet Cheikh Bell DPM Work Phone: [facility] Start: 07-27-2024 End: 07-27-2024 Patient encounter procedure Cheikh Bell DPM Work Phone: [facility] Comment on above: Onychomycosis (Prima ry Dx); Pain in both feet; Type II diabetes mellitus with neurological manifestations ([facility]/HCC) Start: 07-27-2024 End: 07-27-2024 ambulatory CHEIKH BELL Not Available Start: 07-22-2024 End: 07-22-2024 Bamboo flowsheet Sherita Castillo MD Work Phone: [facility] Start: 07-22-2024 End: 07-22-2024 Bamboo flowsheet Sherita Castillo MD Work Phone: [facility] Start: 07-22-2024 End: 07-22-2024 ambulatory SHERITA CASTILLO Not Available Start: 06-28-2024 End: 06-28-[address] [facility] Work Phone: Start: 06-28-2024 End: 06-28-2024 Patient encounter procedure [facility] Work Phone: Start: 05-31-2024 End: 05-31-[address] [facility] Work Phone: Start: 05-31-2024 End: 05-31-2024 Patient encounter procedure [facility] Work Phone: Start: 05-17-2024 End: 05-17-2024 Bamboo flowsheet Cheikh Bell DPM Work Phone: [facility] Start: 05-17-2024 End: 05-17-2024 Bamboo flowsheet Cheikh Bell DPM Work Phone: [facility] Start: 05-17-2024 End: 05-17-2024 Patient encounter procedure Cheikh Bell DPM Work Phone: [facility] Comment on above: Onychomycosis (Prima ry Dx); Pain in both feet; Type II diabetes mellitus with neurological manifestations ([facility]); Corns and callosities Start: 04-30-2024 End: 04-30-[address] [facility] Work Phone: Start: 04-30-2024 End: 04-30-2024 Patient encounter procedure [facility] Work Phone: Start: 04-21-2024 End: 04-21-[address] [facility] Work Phone: Start: 04-21-2024 End: 04-21-2024 Patient encounter procedure [facility] Work Phone: Start: 04-21-2024 Non-patient / Non-visit [facility] Work Phone: Start: 04-13-2024 End: 04-13-[address] [facility] Work Phone: Start: 04-13-2024 End: 04-13-2024 Patient encounter procedure [facility] Work Phone: Start: 04-10-2024 Patient encounter procedure [facility] Start: 01-07-2024 End: 01-07-[address] [facility] Work Phone: Start: 01-07-2024 End: 01-07-2024 Patient encounter procedure [facility] Work Phone: Start: 10-13-2023 Non-patient / Non-visit [facility] Work Phone: Start: 09-15-2023 End: 09-15-2023 ambulatory Ruiz Ball Other [employer] Other Start: 09-15-2023 Telephone encounter Ruiz Ball [facility] Start: 09-02-2023 End: 09-02-2023 ambulatory Andry MCHUGH Facility:[facility] Start: 09-02-2023 End: 09-02-2023 Patient encounter procedure Andry MCHUGH [facility] Start: 07-21-2023 End: 07-21-2023 ambulatory Ruiz Ball Other [employer] Other Start: 07-21-2023 Telephone encounter Ruiz Ball [facility] Start: 06-30-2023 End: 06-30-2023 ambulatory Ruiz Ball Other [employer] Other Start: 06-30-2023 Office outpatient vi sit 25 minutes Ruiz Ball [facility] Start: 06-24-2023 End: 06-24-2023 ambulatory Ruiz Ball Other [employer] Other Start: 06-24-2023 Office outpatient vi sit 15 minutes Ruiz Ball [facility] Start: 03-31-2023 End: 03-31-2023 ambulatory Ruiz Ball Other [employer] Other Start: 03-31-2023 Telephone encounter Ruiz Ball [facility] Start: 03-27-2023 End: 03-27-2023 ambulatory Ruiz Yee Other [employer] Other Start: 03-27-2023 Patient encounter procedure Ruiz Yee [facility] Start: 03-25-2023 End: 03-25-2023 ambulatory Ruiz Yee Other [employer] Other Start: 03-25-2023 Telephone encounter Ruiz Yee [facility] Start: 03-24-2023 End: 03-24-2023 ambulatory Ruiz Yee Other [employer] Other Start: 03-24-2023 Telephone encounter Ruiz Yee [facility] Start: 03-13-2023 End: 03-13-2023 ambulatory Ruiz Yee Other [employer] Other Start: 03-13-2023 Telephone encounter Ruiz Yee [facility] Start: 03-11-2023 End: 03-11-2023 ambulatory Ruiz Yee Other [employer] Other Start: 03-11-2023 Telephone encounter Ruiz Yee [facility] Start: 02-26-2023 End: 02-26-2023 ambulatory Ruiz Yee Other [employer] Other Start: 02-26-2023 Telephone encounter Ruiz Yee [facility] Start: 02-24-2023 End: 02-24-2023 ambulatory Ruiz Yee Other [employer] Other Start: 02-24-2023 Office outpatient vi sit 15 minutes Ruiz Yee [facility] Start: 02-24-2023 Telephone encounter Ruiz Yee [facility] Start: 02-10-2023 End: 02-10-2023 Patient encounter procedure Andry MCHUGH [facility] Start: 02-04-2023 End: 02-04-2023 ambulatory Ruiz Yee Other [employer] Other Start: 02-04-2023 Telephone encounter Ruiz Yee [facility] Start: 01-28-2023 End: 01-28-2023 ambulatory Ruiz Yee Other [employer] Other Start: 01-28-2023 Telephone encounter Ruiz Yee [facility] Start: 12-19-2022 End: 12-19-2022 ambulatory Ruiz Yee Other [employer] Other Start: 12-19-2022 Office outpatient vi sit 25 minutes Ruiz Yee [facility] Start: 11-11-2022 End: 11-12-[address] RUIZ YEE Facility:[facility] Start: 10-15-2022 End: 10-15-2022 ambulatory Ruiz Yee Other [employer] Other Start: 10-15-2022 Office outpatient vi sit 15 minutes Ruiz Zachariah [facility] Start: 09-18-2022 End: 09-18-2022 ambulatory Ruiz Yee Other [employer] Other Start: 09-18-2022 Office outpatient vi sit 25 minutes Ruiz Yee [facility] Start: 03-20-2022 End: 03-21-[address] RUIZ YEE Facility:[facility] Start: 03-07-2022 Adult health examination Janak kirsten Yee Other [employer] Other Start: 02-27-2022 End: 02-27-[address] RUIZ YEE Facility:[facility] Start: 01-11-[address] RUIZ YEE Facili ty:[facility] Start: 01-05-2022 End: 01-07-[address] KAILEE STRONG . Facility:[facility] Start: 12-26-2021 End: 12-26-[address] ISHAN LYON . Facility:[facility] Start: 12-25-2021 End: 12-25-[address] RUIZ YEE Facility:[facility] Start: 12-16-2017 End: 12-17-2017 Ambulatory DEFAULT PHYSICIAN Facility:[facility] Start: 09-15-2017 End: 09-18-2017 Evaluation and management of inpatient REFERRED SELF Facility:[facility] Procedures Date Procedure Procedure Detail Performing Clinician Start: 07-22-2024 End: 07-22-2024 Ophth medical xm&eval comprhnsv estab pt 1/> Type [...] Yee Other Start: 11-22-2015 Screening mammography B macario Yee Other Screening for malign ant neoplasm of breast Ruiz Yee Other Screening for malign ant neoplasm of breast Ruiz Yee Other Plan of Treatment Date Care Activity Detail Author Start: 10-20-2025 End: 10-20-2025 Patient encounter procedure 10/20/2025 11:15 AM EDT Procedure Visit [facility] [address] [place] [id number] Cheikh Bell DPM [address] [place] [address] [facility] Start: 07-27-2025 End: 07-27-2025 [facility] Start: 05-17-2025 End: 05-17-2025 [facility] Comment on above: Arrived Start: 04-11-2025 Influenza vaccination Influenza Vacc ine (#1) [facility] Start: 02-14-2025 End: 02-14-2025 [facility] Comment on above: Arrived Start: 12-07-2024 End: 12-07-2024 [facility] Comment on above: Arrived Start: 10-04-2024 End: 10-04-2024 [facility] Comment on above: Arrived Start: 07-27-2024 End: 07-27-2024 Patient encounter procedure [facility] Comment on above: Arrived Start: 07-22-2024 End: 07-22-2024 Patient encounter procedure 07/22/2024 10:30 AM EST Office Visit [facility] [address] [place] [address] Sherita Castillo MD [address] [place] [address] Arrived [facility] Comment on above: Arrived Start: 05-17-2024 End: 05-17-2024 Patient encounter procedure 05/17/2024 10:00 AM EDT Procedure Visit [facility] [address] [place] [id number] Cheikh Bell DPM [address] [place] [address] Arrived [facility] Comment on above: Arrived Start: 04-11-2024 Influenza vaccination Influenza Vacc ine (#1) [facility] Start: 11-06-2015 Pneumococcal Vaccine : 65+ Years (2 of 2 - PPSV23 or PCV20) Pneumococcal Vaccine: 65+ Years (2 of 2 - PPSV23 or PCV20) [employer] [facility] Start: 03-28-2016 Pneumococcal Vaccine : 65+ Years (2 of 2 - PPSV23) Pneumococcal Vaccine: 65+ Years (2 of 2 - PPSV23) [facility] 2000 panel - Serum or Plasma [facility] MG Breast - bilatera l Screening [facility] Microalbumin [Mass/volume] in Urine [facility] US Thyroid gland [facility] Immunizations Immunization Date Immunization Notes Care Provider Fa cility 05-31-2024 influenza virus vaccine, unspecified formulation Andry DTI [employer] [facility] 05-31-2024 influenza, high dose seasonal, preservative-free [facility] 06-30-2023 influenza virus vaccine, unspecified formulation [facility] 06-30-2023 influenza, high dose seasonal, preservative-free Ruiz Yee Other [employer] [facility] [employer] Other 08-11-2022 influenza virus vaccine, unspecified formulation Andry [employer] [facility] 07-08-2022 SARS-CoV-2 (COVID-19 ) [id number] Andry [employer] [facility] 05-08-2022 influenza virus vaccine, unspecified formulation [facility] 05-08-2022 influenza, high dose seasonal, preservative-free Ruiz Ball Other [employer] Other 05-06-2022 influenza virus vaccine, split virus (incl. purified surface antigen) Ruiz Yee Other [employer] Other 05-06-2022 influenza virus vaccine, unspecified formulation Andry [employer] [facility] 07-02-2021 SARS-CoV-2 (COVID-19 ) mRNA BNT-162b2 vax [employer] [facility] 04-27-2021 influenza virus vaccine, split virus (incl. purified surface antigen) Ruiz Yee Other [employer] Other 04-27-2021 influenza virus vaccine, unspecified formulation [facility] 09-28-2020 SARS-CoV-2 (COVID-19 ) mRNA BNT-162b2 vax Andry [employer]TI [employer] [facility] Comment on above: Result Comment: 2023: [id number] 09-07-2020 SARS-CoV-2 (COVID-19 ) mRNA BNT-162b2 vax [employer] [facility] Comment on above: Result Comment: 2023: [id number] 05-04-2020 influenza virus vaccine, split virus (incl. purified surface antigen) Ruiz Yee Other [facility] [employer] Other 05-04-2020 influenza virus vaccine, unspecified formulation [facility] 04-30-2019 influenza virus vaccine, unspecified formulation [employer] [facility] 04-24-2018 influenza virus vaccine, split virus (incl. purified surface antigen) Ruiz Yee Other [employer] Other 04-24-2018 influenza virus vaccine, unspecified formulation [employer] [facility] 04-17-2017 influenza virus vaccine, split virus (incl. purified surface antigen) Ruiz Yee Other [employer] Other 04-17-2017 influenza virus vaccine, unspecified formulation [employer] [facility] 05-10-2016 influenza virus vaccine, split virus (incl. purified surface antigen) Ruiz Yee Other [employer] Other 05-10-2016 influenza virus vaccine, unspecified formulation [employer] [facility] 06-13-2015 tetanus and diphther ia toxoids, adsorbed, preservative free, for adult use (5 Lf of tetanus toxoid and 2 Lf of diphtheria toxoid) Ruiz Yee Other [facility] 03-28-2015 pneumococcal conjuga te vaccine, 13 valent Ruiz Yee Other [facility] 03-28-2015 pneumococcal Conjuga te, unspecified formulation; Translations: [Need for prophylactic vaccination against Streptococcus pneumoniae (pneumococcus)] Ruiz Yee Other [facility] [employer] Other 11-05-2014 pneumococcal conjuga te vaccine, 13 valent [employer] [facility] 06-07-2014 influenza virus vaccine, split virus (incl. purified surface antigen) Ruiz Yee Other [employer] Other 06-07-2014 influenza virus vaccine, unspecified formulation [facility] 06-07-2013 tetanus and diphther ia toxoids, adsorbed, preservative free, for adult use (5 Lf of tetanus toxoid and 2 Lf of diphtheria toxoid) Ruiz Zachariah Other [facility] 05-24-2009 pneumococcal polysaccharide vaccine, 23 valent Ruiz Yee Other [facility] Payers Date Payer Category Payer Private Health Insurance [employer] T [id number] 2016 Unknown 2008 Medicare [id number] 1959 Medicare [id number] 1959 Unknown [id number] 1943 Unknown [id number] 2.16.840.1.557495.3.579 .2.593 1943 Unknown [id number] 2.16.840.1.857969.3.579 .2.593 1943 Unknown [id number] 2.16.840.1.341818.3.579 .2.593 1943 Unknown [id number] 2.16.840.1.287477.3.579 .2.593 1943 Unknown [id number] 2.16.840.1.554980.3.579 .2.593 1943 Unknown [id number] 2.16.840.1.053139.3.579 .2.593 1943 Unknown [id number] 2.16.840.1.976171.3.579 .2.593 1943 Unknown [id number] 2.16.840.1.313620.3.579 .2.727 1943 Unknown [id number] 2.16.840.1.951396.3.579 .2.727 1943 Unknown [id number] 2.16.840.1.573151.3.579 .2.1259 1943 Unknown [id number] 2.16.840.1.622184.3.579 .2.1259 1943 Unknown [id number] 2.16.840.1.378973.3.579 .2.1259 1943 Unknown [id number] 2.16.840.1.514612.3.579 .2.1259 1943 Unknown [id number] 2.16.840.1.119451.3.579 .2.1259 1943 Unknown [id number] [id number] .2.1259 Medicare [id number] Social History Date Type Detail Facility Start: 03-04-2024 End: 05-17-2025 Sex Assigned At [facility] Tobacco smoking status No Smokin g Status Entered [facility] Start: 04-10-2023 End: 10-02-2023 Tobacco smoking status NHIS Never smoked tobacco (finding) [facility] Start: 1945 Sex Assigned At Female [facility] Start: 04-10-2023 Tobacco use and exposure Smokeless tobacco non-user [employer] [facility] Start: 03-04-2024 End: 05-17-2025 Alcoholic beverage intake Lifetime non-drinker (finding) [facility] [facility] [facility] Start: 03-04-2024 End: 05-17-2025 History of Social function [employer] [facility] [facility] Start: 08-25-2023 Alcohol Comment caffeine intak e:1-2 cups per day [employer] [facility] Start: 1945 Sex assigned at Not [facility] file [facility] Start: 06-28-2024 End: 10-25-2024 Sex Female (finding) [facility] Medical Equipment Procedure Code Equipment Code Equipment Origin al Text Equipment Identifier Dates USE 1 STRIP TO C HECK GLUCOSE ONCE DAILY Start: 03-31-2023 Functional Status Date Assessment Result Facility 08-24-2024 Functional Status N/A [facility] 09-02-2023 Functional Status N/A [facility] 02-10-2023 Functional Status N/A [facility] Clinical Notes 09-18-2022 to 05-17-2025 Cheikh Bell DPM - 05/17/2025 10:15 AM EDTCassandra Elda Bell, MIGUELANGEL - 02/14/2025 10:00 AM EDT Note Date & Type Note Facility 05-17-2025 History of Presen t illness Narrative Images [...] Dr. Jag Yee. Date of Last visit: 11/19/2024 Aggravated by: shoe gear, pressure. Risk factors: diabetes. Allergies NSAIDs Adhesive Codeine Fexofenadine Amoxicillin Neosporin Prilosec Claritin Examination General Examination: GENERAL EXAMINATION: alert, well hydrated, in no distress , awake, aware of surroundings. FOOT EXAM: Date of Last Foot Exam 05/09/25 Vascular: DORSALIS PEDIS PULSE: 1/4, bilaterally. POSTERIOR [...] from the overgrowth of the toenails. CPT 36345 documented in this encounter [facility] 02-14-2025 History of Presen t illness Narrative Images [...] Dr. Jag Yee. Date of Last visit: 11/19/2024 Aggravated by: shoe gear, pressure. Risk factors: diabetes. Allergies NSAIDs Adhesive Codeine Fexofenadine Amoxicillin Neosporin Prilosec Claritin Examination General Examination: GENERAL EXAMINATION: alert, well hydrated, in no distress , awake, aware of surroundings. FOOT EXAM: Date of Last Foot Exam 02/14/25 Vascular: DORSALIS PEDIS PULSE: 1/4, bilaterally. POSTERIOR [...] from the overgrowth of the toenails. CPT 20804 documented in this encounter [facility] 02-08-2025 Evaluation note Diagnosis Onset Date Resolution Acute bronchitis due to other specified organisms acute February 08, 2025 3 :37pm Primary hypertension acute February 08, 2025 3:37pm [facility] Work Phone: 1(720) 548-970907-01-2025 Evaluation note* Diagnosis Onset Date Resolution Status Admit Date Acute bronchitis due to othe r specified organisms acute February 08 3:37pm Primary hypertension acute February 08, 2025 3:37pm Acute bronchitis due to othe r specified organisms acute February 21, 025 8:30am Maxillary sinusitis acute February 21, 2025 8:30am ASHD (arteriosclerotic heart disease) acute March 07, 2025 10:27am Gastroesophageal reflux dise ase with esophagitis without hemorrhage acute J marcela2024 10:27am Hypercholesterolemia acute March 07, 2025 10:27am Hypothyroid acute March 07 10:27am Primary hypertension acute March 07, 2025 10:27am Thyroid nodule acute March 07, 2025 10:27am Type 2 diabetes mellitus wit h hyperglycemia acute March 07, 2025 10:27am [facility] Work Phone: 1(872) 253-836104-29-2025 History of Present illness Narrative* Cheikh Bell DPM - 12/07/2024 10:00 AM EDT Images from the original note were not [...] Dr. Jag Yee. Date of Last visit: 11/19/2024 Aggravated by: shoe gear, pressure. Risk factors: diabetes. Allergies NSAIDs Adhesive Codeine Fexofenadine Amoxicillin Neosporin Prilosec Claritin Examination General Examination: GENERAL EXAMINATION: alert, well hydrated, in no distress , awake, aware of surroundings. FOOT EXAM: Date of Last Foot Exam 12/07/24 Vascular: DORSALIS PEDIS PULSE: 1/4, bilaterally. POSTERIOR [...] pain and problems developing from the overgrowth ofthe toenails. CPT 04865 documented in this encounterSaint Luke's Health [id number] History of Present illness Narrative* Cheikh Bell DPM - 10/04/2024 10:00 AM EST Images from the original note were not [...] pain and problems developing from the overgrowth ofthe toenails. CPT 25679 documented in this encounterSaint Luke's Health [id number] Hospital Discharge instructions Patient Education 08/24/2024 10:13:38 [...] include: ?8 oz (237 mL) of milk, ppxsrfj-zfnxvqointqx-wzqma milk, and calcium- fortifiedfruit juice. Calcium-fortified means [...] ?Spinach (cooked), rhubarb, beets, sweet potatoes, and Salvadorean chard. ?Peanuts. ?Potato chips, luxembourger fries, and baked potatoes with skin on. ?Nuts and nut products. ?Chocolate. If you regularly take a diuretic medicine, make sure to eat at least 1 or 2 servings of fruits or vegetables that are high in potassium each day. These include: ?Avocado. ?Banana. ?Hunter, prune, carrot, or tomato juice. ?Baked potato. [...] magnesium, fish oil, or vitamin B6. Take jlfo-onm-beyaqrg and prescription medicines only as told by [...] Casseroles. Pizza. Lasagna. Frozen meals. Potato chips. Indonesian fries. The items listed above may not [...] provider. Document Revised: 11/07/2022 Document Reviewed: 11/07/2022 [employer] Patient Education 2023 Notice Kiosk. Follow Up Care 09/02/2023 09:43:32 With:JEISON HEARN, Andry Carcamo, URL Address: [facility] [address] [place], [place] [id number]- When: Unknown [facility] Teri [id number] NotePatient Education Nephrology Dietary Guidelines to Help Prevent [...] labels. Limit your salt (sodium) intake to lessthan 1,500 mg a day. ??? Choose foods with calcium for each meal and snack. Try to eat about 300 mg of calcium at each meal. Foods that contain 200?500 mg of calcium a serving include: ? 8 oz (237 mL) of milk, azmztct-jnardxyjvhaa-ogtpq milk, and calcium- fortifiedfruit juice. Calcium-fortified means [...] on the table and allow each person toadd their own salt to taste. ??? Use [...] Spinach (cooked), rhubarb, beets, sweet potatoes, and Salvadorean chard. ? Peanuts. ? Potato chips, luxembourger fries, and baked potatoes with skin on. ? Nuts and nut products. ? Chocolate. ??? If you regularly take a diuretic medicine, make sure to eat at least 1 or 2 servings of fruits or vegetables that are high in potassium each day. These include: ? Avocado. ? Banana. ? Hunter, prune, carrot, or tomato juice. ? Baked potato. ? Cabbage. ? Beans and split peas. Lifestyle ??? Drink enough fluid to keep your urine pale yellow. This is the most important thing you can do.Spread your fluid intake throughout the day. ??? [...] fish oil, or vitamin B6. ??? Take orxy-trx-onswoxy and prescription medicines only as told by your health (more content not included)...[facility]12-17-2024 History of Present illness Narrative* Cheikh Bell DPM - 07/27/2024 10:00 AM EST Images from the original note were not [...] pain and problems developing from the overgrowth ofthe toenails. CPT 49196 documented in this [facility]12-12-2024 History of Present illness Narrative* Sherita Castillo MD - 07/22/2024 10:30 AM EST Assessment/Plan Diabetes Mellitus without sign of diabetic retinopathy on dilated retinal examination today OU: Discussed the pathophysiology of diabetes and its effect on the eye. Stressed the importance of strong glucose control. Advised of importance of at least yearly dilated examinations, but to contact us immediately for any problems or concerns. documented in this [facility]10-07-2024 History of Present illness Narrative* Cheikh Bell DPM - 05/17/2024 10:00 AM EDT Images from the original note were not [...] or Silipos padding/toe spacers to prevent rubbing andcontinued development of the hyperkeratosis. 3. Also discussed use of moisturizing creams for overall increased hydration to the skin. 4. Discussed continued use of proper foot gear to avoid excess pressure over the callous site. CPT 27175, 60169 documented in this encounterSaint Luke's Health [id number] Evaluation note* Diagnosis Onset Date Resolution Status Admit Date ASHD (arteriosclerotic heart disease) acute April 13 10:22am Gastroesophageal reflux dise ase with esophagitis without hemorrhage acute April 13 10:22am Hypercholesterolemia acute Apr 10:22am Hypothyroid acute April 10:22am Medicare annual wellness vis it, subsequent acute April 13 10:22am Primary hypertension acute Apr 10:22am Screening mammogram for k[facility] cancer acute April 13 10:22am Thyroid nodule acute April 13, 2024 10:22am Type 2 diabetes mellitus wit h hyperglycemia acute April 13 10:22am Cellulitis of leg without fo ot, right acute April 21, 2024 11:34am Laceration of leg not thigh, right a cute April 21, 2024 11:34am Type 2 diabetes mellitus wit h hyperglycemia acute April 21, 2024 11:34am Cellulitis of leg without fo ot, right acute April 30, 2024 10:56am Laceration of leg not thigh, right a cute April 30, 2024 10:56am Type 2 diabetes mellitus wit h hyperglycemia acute April 30, 2024 10:56am [facility] Work Phone: 1(101) 485-593502-05-2024 Evaluation note* Encounter Date Diagnosis Assessment Notes Treatment Notes Treatment Clinical Notes Sep, Primary hypertension (ICD-10 - I10) Sep, ASHD (arteriosclerotic heart disease) (ICD-10 - I25.10) Sep, Autoimmune thyroiditis (ICD-10 - E06.3) Sep, Hyperlipidemia type II (ICD-10 - E78.01) Sep, Controlled type 2 diabetes mellitus with hyperglycemia, without long-term current use of insulin (ICD-10 - E11.65) [facility] Other 01-23-2024 Hospital Discharge instructions Patient Education [...] include: ?8 oz (237 mL) of milk, uinnndd-ydjanfgsplte-sfsio milk, and calcium- fortifiedfruit juice. Calcium-fortified means [...] ?Spinach (cooked), rhubarb, beets, sweet potatoes, and Salvadorean chard. ?Peanuts. ?Potato chips, luxembourger fries, and baked potatoes with skin on. ?Nuts and nut products. ?Chocolate. If you regularly take a diuretic medicine, make sure to eat at least 1 or 2 servings of fruits or vegetables that are high in potassium each day. These include: ?Avocado. ?Banana. ?Hunter, prune, carrot, or tomato juice. ?Baked potato. [...] magnesium, fish oil, or vitamin B6. Take kmad-xli-qzzjree and prescription medicines only as told by [...] Casseroles. Pizza. Lasagna. Frozen meals. Potato chips. Indonesian fries. The items listed above may not [...] provider. Document Revised: 11/07/2022 Document Reviewed: 11/07/2022 [employer] Patient Education 2022 Notice Kiosk. Follow Up Care 06/30/2023 13:02:17 With:JEISON HEARN, Andry Carcamo, URL Address: [address] [place] [address]- When:Within 1 Year(s) Comments:peggy/DANIAL [facility] Teri [id number] Evaluation note* Encounter Date Diagnosis Assessment Notes [...] or drinking prior to bedtime. Weight loss. [facility] Other 11-14-2023 Evaluation note* Encounter Date Diagnosis [...] and at increased risk for prolonged illness [facility] Other 08-21-2023 Evaluation note* Encounter Date Diagnosis Assessment Notes Treatment Notes Treatment Clinical Notes Mar, Controlled type 2 diabetes mellitus with hyperglycemia, without long-term current use of insulin (ICD-10 - E11.65) [facility] Other 08-17-2023 Evaluation note* Encounter Date Diagnosis [...] Instructed on monthly SBE and yearly mammogram [facility] Other 07-17-2023 Evaluation note* Encounter Date Diagnosis Assessment Notes Treatment Notes Treatment Clinical Notes Feb, Superficial abscess of perineum (ICD-10 - L02.215) Warm soaks daily Keep area clean and dry Begin antibiotics. REcheck in 5 days Feb, Controlled type 2 diabetes mellitus with hyperglycemia, without long-term current use of insulin (ICD-10 - E11.65) INcreases risk for prolonged, serious infection. [facility] Other 07-03-2023 Hospital Discharge instructions Patient Education [...] Care 01/22/2023 09:52:05 With:Andry MCHUGH [address] [id number]- [facility] (1) When:6 months Comments:Call for followup appointment in about six months with an abdominal X- ray prior to your visit (my office needs to send an order for this study)I will get records from the [facility] to see what the CAT scan demonstrated in terms of whether or not you have more stones in your kidneys. This may change the follow-up date depending on findings.Have a great day! [facility]06-27-2023 Evaluation note* Encounter Date Diagnosis Assessment [...] High risk medication use (ICD-10 - Z79.899) [facility] Other 05-11-2023 Evaluation note* Encounter Date Diagnosis [...] mammogram for breast cancer (ICD-10 - Z12.31) [facility] Other 03-07-2023 Evaluation note* Encounter Date Diagnosis [...] to continue exercise and AHA diet plan. [facility] Other 02-08-2023 Evaluation note* Encounter Date Diagnosis [...] - E06.3) Euthyroid, TSH yearly w/ [facility] [place] [employer] Other Evaluation + Plan note No data available for this section [facility] Future Appointments Appointment Date:08/24/2024 09:45:00 AM Scheduled Provider:Andry MCHUGH MD Location:[facility] Appointment Type:URO Office Visit [facility] Evaluation noteNo InformationNoDuke [facility] [employer] Other Evaluation note* Diagnosis Onset Date Resolution Status ASHD (arteriosclerotic heart disease) acute Gastroesophageal reflux dise ase with esophagitis without hemorrhage acute Hyperlipidemia type II acute Hypothyroid acute Primary hypertension acute Type 2 diabetes mellitus with hyperglycemia acute [facility] Work Phone: Evaluation note* Diagnosis Onset Date Resolution Status ASHD (arteriosclerotic heart disease) acute Gastroesophageal reflux dise ase with esophagitis without hemorrhage acute Hypercholesterolemia acute Hypothyroid acute Medicare annual wellness visit, subsequent acute Primary hypertension acute Screening mammogram for breast cancer acute Thyroid nodule acute Type 2 diabetes mellitus with hyperglycemia acute [facility] Work Phone: Evaluation note* Diagnosis Onset Date [...] Type 2 diabetes mellitus with hyperglycemia acute [facility] Work Phone: Evaluation note* Diagnosis Onychomycosis- Primary Dermatophytosis of nail Pain in both feet Type II diabetes mellitus with neurological manifestations ([facility]/HCC) Type II or unspecified type diabetes mellitus with neurological manifestations, not stated as uncontrolled Corns and callosities documented in this encounter [facility] Healthcare[facility] note* Diagnosis Type 2 diabetes mellitus without complication, with long-term current use of insulin ([facility])- Primary Pseudophakia Lens replaced by other means documented in this encounter [facility] HealthcareEvaluation note* Diagnosis Onychomycosis- Primary Dermatophytosis of nail Pain in both feet Type II diabetes mellitus with neurological manifestations ([facility]/HCC) Type II or unspecified type diabetes mellitus with neurological manifestations, not stated as uncontrolled documented in this encounter [facility]* Diagnosis Onset Date Resolution Status Admit Date ASHD (arteriosclerotic heart disease) acute October 25, 2024 10:21am Gastroesophageal reflux dise ase with esophagitis without hemorrhage acute M arch 2024 10:21am Hypercholesterolemia acute Juni h 2024 10:21am Hypothyroid acute October 25, 2 025 10:21am Primary hypertension acute Juni h 2024 10:21am Thyroid nodule acute October 10:21am Type 2 diabetes mellitus wit h hyperglycemia acute October 25, 2024 10:21am [facility] Work Phone: Evaluation note* Diagnosis Onset Date Resolution Status Admit Date Acute bronchitis due to othe r specified organisms acute February 08 3:37pm Primary hypertension acute February 08, 2025 3:37pm [facility] Work Phone: Evaluation note* Diagnosis Onychomycosis- Primary Dermatophytosis of nail Pain in both feet Type II diabetes mellitus with neurological manifestations (HCC) Type II or unspecified type diabetes mellitus with neurological manifestations, not stated as uncontrolled 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 documented in this encounter [facility]* Diagnosis Onychomycosis- Primary Dermatophytosis of nail Pain in both feet Type II diabetes mellitus with neurological manifestations (HCC) Type II or unspecified type diabetes mellitus with neurological manifestations, not stated as uncontrolled documented in this encounter [facility] Narrative - Reported* Type Description [...] HX 2001 Hospitalization History SEE SURGICAL HX [facility] Narrative - Reported* Type Description Date [...] placement 01/2023 Hospitalization History SEE SURGICAL HX [facility] Other Progress note No data available for this section [facility]narrative)No reason for referral information availableUc Health Work Phone: Summary Purpose Family History No Family History [...] Complaint and Reason for Visit Chief Complaint Admit Date possible URI February 08, 2025 3:37p m still not feeling well February 21, 2025 8 :30am Reason for Visit Admit Date Acute bronchitis due to other specified organisms February 08, 2025 3:37pm Primary hypertension February 08, 2025 3:37 pm Chief Complaint 3 month follow up Reason [...] Admit Date ASHD (arteriosclerotic heart disease) Se pt2023 10:22am Gastroesophageal reflux dise ase with esophagitis [...] with hyperglyce elena April 30, 2024 10:56am Chief Complaint Admit Date 6 month f/u October 25, 2024 10: 21am Reason for Visit Admit Date ASHD (arteriosclerotic heart disease) [facility] 2024 10:21am Gastroesophageal reflux dise ase with esophagitis without hemorrhage October 25, 2024 10:21am Hypercholesterolemia October 25, 2024 10 :21am Hypothyroid October 25, 2024 10: 21am Primary hypertension October 25, 2024 10 :21am Thyroid nodule October 25, 2024 10: 21am Type 2 diabetes mellitus with hyperglyce elena October 25, 2024 10:21am Chief Complaint Admit Date possible URI February 08, 2025 3:37p m Chief Complaint Admit Date possible URI February 08, 2025 3:37p m still not feeling well February 21, 2025 8 :30am 4 month f/u March 07, 2025 10:2 7am Reason for Visit Admit Date Acute bronchitis due to other specified organisms February 08, 2025 3:37pm Primary hypertension February 08, 2025 3:37 pm Acute bronchitis due to other specified organisms February 21, 2025 8:30am Maxillary sinusitis February 21, 2025 8:30 am ASHD (arteriosclerotic heart disease) Ju 2024 10:27am Gastroesophageal reflux dise ase with esophagitis without hemorrhage March 07, 2025 10:27am Hypercholesterolemia March 07, 2025 10: 27am Hypothyroid March 07, 2025 10:2 7am Primary hypertension March 07, 2025 10: 27am Thyroid nodule March 07, 2025 10:2 7am Type 2 diabetes mellitus with hyperglyce elena March 07, 2025 10:27am Additional Source Comments INFORMATION SOURCE (unrecogn ized section and content) DATE CREATED AUTHOR 01/29/2018 [facility] DATE CREATED AUTHOR AUTHOR'S ORGANIZ ATION 11/16/2022 [facility] DATE CREATED AUTHOR AUTHOR'S ORGANIZ ATION 08/27/2024 [facility] DATE CREATED AUTHOR AUTHOR'S ORGANIZ ATION 05/19/2025 [facility] d[facility] Specialists EPIC REASON FOR VISIT (unrecogniz [...] April 30, 2024 End: April 30, 2024 Development Geologist Relationship Specialty Start Date End Date Ruiz Yee MD [address] [place] [facility] [place] [id number] PCP - General Internal Medicine 04/10/23 Development Geologist Relationship Specialty Start Date End Date Ruiz Yee MD [address] [place] [address] PCP - General Internal Medicine 04/10/23 Team Status: Inactive Member Role Status Dates Ruiz Yee DO Primary Care Provide r, Attending Provider Active Start: May 31, 2024 End: May 31, 2024 Team Status: Inactive Member Role Status Dates Ruiz Yee DO Primary Care Provide r, Attending Provider Active Start: June 28, 2024 End: June 28, 2024 Development Geologist Relationship Specialty Start Date End Date Ruiz Yee MD [address] [place] [id number] PCP - General Internal Medicine 04/10/23 Development Geologist Relationship Specialty Start Date End Date Ruiz Yee MD [address] [place] [address] PCP - General Internal Medicine 04/10/23 Development Geologist Relationship Specialty Start Date End Date Ruiz Yee MD [address] [place] [address] PCP - General Internal Medicine 04/10/23 Development Geologist Relationship Specialty Start Date End Date Ruiz Yee MD [address] [place] [address] PCP - General Internal Medicine 04/10/23 Team Status: Inactive Member Role Status Dates Ruiz Yee DO Primary Care Provide r, Attending Provider Active Start: October 25, 2024 End: October 25, 2024 Development Geologist Relationship Specialty Start Date End Date Ruiz Yee MD [address] [place] [address] PCP - General Internal Medicine 12/07/24 Development Geologist Relationship Specialty Start Date End Date Ruiz Yee MD [address] [place] [address] PCP - General Internal Medicine 12/07/24 Team Status: Inactive Member Role Status Dates Ruiz Yee DO Primary Care Provider Active Start: February 08, 2025 End: February 08, 2025 Ruzi Yee DO Attending Provider Active Sta rt: February 08, 2025 End: February 08, 2025 Development Geologist Relationship Specialty Start Date End Date Ruiz Yee DO [address] [place] [id number] PCP - General Internal Medicine 12/07/24 Development Geologist Relationship Specialty Start Date End Date Ruiz Yee DO [address] [place] [address] PCP - General Internal Medicine 12/07/24 Team Status: Inactive Member Role Status Dates Ruiz Yee DO Primary Care Provider Active Start: February 21, 2025 End: February 21, 2025 Jennifer Garza APRN NETWORK FIREWALL ENGINEER-C Attending Provider Act merlyn Start: February 21, 2025 End: February 21, 2025 Team Status: Inactive Member Role Status Dates Ruiz Yee DO Primary Care Provider Active Start: March 07, 2025 End: March 07, 2025 Ruiz Yee DO Attending Provider Active Sta rt: March 07, 2025 End: March 07, 2025 Development Geologist Relationship Specialty Start Date End Date Ruiz Yee DO [address] [place] [id number] PCP - General Internal Medicine 12/07/24 Goals (unrecognized section and content) Goals may [...] BE BASED ON THE PRIMARY CLINICAL RECORDS. [employer] [facility]. provides no warranty or guarantee of the accuracy or completeness of information in this document.
[2025-05-20 08:56] LABS: Hematocrit 38.3 % (36.0-48.0); Hemoglobin 12.6 g/dL (12.0-16.0); Immature Granulocytes Abs Auto 0.04 10^3/uL (0.00-0.03); Immature Granulocytes Pct Auto 0.5 % (0.0-0.5); Lymphocytes Absolute Auto 2.7 10^3/uL (1.2-3.8); Mean Corpuscular HGB Conc 32.9 g/dL (29.9-35.2); Mean Corpuscular Hemoglobin 31.0 pg (26.7-34.0); Mean Corpuscular Volume 94.3 fL (81.0-99.0); Platelet Count 285 10^3/uL (150-450); Red Blood Count 4.06 10^6/uL (4.20-5.40); White Blood Count 7.6 10^3/uL (4.0-11.0)
[2025-05-20 17:18] LABS: Alanine Aminotransferase 18 U/L (14-59); Albumin Globulin Ratio 1.2; Albumin Level 3.9 g/dL (3.4-5.0); Alkaline Phosphatase 62 U/L (46-116); Anion Gap 15.7; Aspartate Amino Transferase 16 U/L (15-37); Blood Urea Nitrogen 19.0 mg/dL (7.0-18.0); Calcium 9.4 mg/dL (8.5-10.1); Carbon Dioxide 29.1 mmol/L (21.0-32.0); Chloride 104 mmol/L (98-107); Cholesterol 123 mg/dL (<=200); Estimated GFR (African America >60 (>=60 mL/min/1.73m^2); Estimated GFR (Non-African Ame >60 (>=60 mL/min/1.73m^2); Globulin 3.3 g/dL; Glucose 121 mg/dL (74-106); HDL Cholesterol 59 mg/dL (40-60); Potassium 3.8 mmol/L (3.5-5.1); Sodium 145 mmol/L (136-145); Thyroid Stimulating Hormone 0.724 uIU/mL (0.358-3.740); Total Protein 7.2 g/dL (6.4-8.2); Triglycerides 118 mg/dL (<=150); VLDL CHOLESTEROL 23.6 mg/dL
== END 2025-05-20 08:18 | disposition home or self-care (01) ==
LOC: LAB 08:17
PROVIDERS: PCP Internal Medicine; Visit Provider Internal Medicine
DX: E78.00 Pure hypercholesterolemia, unspecified (principal); E11.65 Type 2 diabetes mellitus with hyperglycemia; I10 Essential (primary) hypertension; I25.10 Atherosclerotic heart disease of native coronary artery without angina pectoris; E03.8 Other specified hypothyroidism; E06.3 Autoimmune thyroiditis
CPT/HCPCS: 36415; 80053; 80061; 82043; 82570; 83036; 84443; 85025

== ENCOUNTER 2025-06-14 14:39 | Outpatient (OUT) | payer MEDICARE, OTHER, SELFPAY ==
--- NOTE | 2025-06-14 14:41 | MM_ITS ---
Patient Name: PETER GLASS MR#: [id number] : 1945 Exam Date: 06/14/2025 Ordering Doctor: DR HUGO SONI D.O. RADIOLOGY REPORT PROCEDURE: MM TOMOSYNTHESIS SCREENING BI COMPARISON: MM TOMOSYNTHESIS SCREENING BI, 04/21/2024. MM TOMOSYNTHESIS SCREENING BI, 03/24/2023. MG MAMM SCREEN 3D YAZMIN CAD, 03/20/2022. MG MAMM YAZMIN SCRN W CAD DIG, 11/23/2013. INDICATIONS: Screening Calculator Name NCI Breast Cancer Risk Assessment Tool 5 Year Breast Cancer Risk 4.30% Lifetime Breast Cancer Risk 6.20% Personal Breast Cancer No Personal Ovarian Cancer No Treatments None Family Cancers Mother with breast cancer at age 80. LOCATION: [facility] BREAST COMPOSITION: There are scattered areas of fibroglandular density. FINDINGS: RIGHT BREAST: No significant suspicious finding. Benign-appearing calcifications are present. Similar focal asymmetries are present. LEFT BREAST: No significant suspicious finding. Benign-appearing calcifications are present. Similar focal asymmetries are present. DIAGNOSTIC CATEGORY 2--BENIGN FINDING. NO CHANGE FROM COMPARISON. RECOMMENDATIONS: ROUTINE MAMMOGRAM AND CLINICAL EVALUATION IN 12 MONTHS. Dictated by: Efrain Patel MD on 06/14/2025 at 15:56 Approved by: Efrain Patel MD on 06/14/2025 at 16:02
--- OUTSIDE RECORDS SUMMARY | 2025-06-14 14:42 | XMS_ITS | Clinical Summary ---
Author Organization [facility] Address [address] [place] [address] Care Team Providers Care Marble Installer Supervisor Name Role Phone Ruiz Yee Primary Care Provider [phone] Allergies Active AllergyReactionsCriticalityNoted DateCommentsAmoxicillin-Pot Clavulanate 07/22/2024 Other Reaction(s): Not available, Unknown Bacitracin-Polymyxin 07/22/2024 Other Reaction(s): Redness, Unknown Gkvbxlv4407/22/2024 Other Reaction(s): Not available, Unknown UkwnfhxolcswOervfeg03/18/0799Pfhddlupq76/31/2023 Other Reaction(s): Unknown Mwfnogutlz01/18/2024 Other Reaction(s): Not available, UNK, Unknown NaproxenOther,Nifsoos2604/10/20232534CswqvmWtbponf96/18/0090Pggnocxjpm59/12/2024 Other Reaction(s): Not available, Unknown Hfjznszvn42/18/2024 Other Reaction(s): Not available, UNK Hdrinrhurbc09/18/2024 Other Reaction(s): Not available, UNK, Unknown Wound Dressing Sauikxwg77/12/2024 Other Reaction(s): Not available Medications MedicationSigDispense QuantityRefillsLast FilledStart DateEnd DateStatus aspirin 81 MG chewable tablet Chew 1 tablet every day by oral route.Active atorvastatin (Lipitor) 40 MG tablet Take 1 tablet by mouth in the morning.02/10/2023ctive azithromycin (Zithromax) 250 MG tablet TAKE 2 TABLETS BY MOUTH ON DAY 1, AND THEN TAKE 1 TABLET BY MOUTH ONCE A DAY ON DAY 2 THROUGH DAY ctive cholecalciferol (Vitamin D-3) 25 MCG (1000 UT) capsule Take 1 capsule every day by oral route.Active Cipro 500 MG tablet See Instructions, Take 1 tab day prior to procedure and 1 tab day of procdure - afterwards, # 2 tab(s), Refills(s) 0, Pharmacy: [facility] Active erythromycin (Romycin) 5 MG/GM ophthalmic ointment APPLY A THIN LAYER INTO LEFT EYE ONE A DAY05/23/2022ctive Contour Next Test test strip USE 1 STRIP TO CHECK GLUCOSE ONCE DAILY03/31/2023ctive levoFLOXacin (Levaquin) 750 MG tablet TAKE 1 TABLET BY MOUTH ONCE DAILY FOR 7 DAYS01/18/2023ctive levothyroxine (Synthroid, Levoxyl) 75 MCG tablet Take 1 tablet every day by oral route for 90 days.02/10/2023ctive lisinopril-hydroCHLOROthiazide 10-12.5 MG tablet Take 1 tablet every day by oral route for 90 days.Active LISINOPRIL-HYDROCHLOROTHIAZIDE PO Refill(s) ctive metFORMIN (Glucophage) 500 MG tablet Take 1 tablet twice a day by oral route for 90 days.Active metoprolol succinate XL (Toprol-XL) 25 MG 24 hr tablet Take 1 tablet every day by oral route for 30 days.02/10/2023ctive metroNIDAZOLE (Flagyl) 500 MG tablet 02/24/2023ctive ondansetron ODT (Zofran-ODT) 4 MG disintegrating tablet DISSOLVE 1 TABLET IN MOUTH ONCE DAILY NEEDED FOR NAUSEA AND VOMITING FOR 4 DAYS01/18/2023ctive pantoprazole (ProtoNix) 40 MG EC tablet Take 1 tablet every day by oral route for 90 days.Active tamsulosin (Flomax) 0.4 MG 24 hr capsule Take 0.4 mg by mouth in the morning.01/18/2023ctive triamcinolone (Kenalog) 0.1 % cream Active doxycycline (Vibramycin) 100 MG capsule Once06/28/2024ctive mupirocin (Bactroban) 2 % ointment 04/13/2024ctive Active Problems No known active problems Encounters DateTypeDepartmentCare QhbnNslqlvlqnvh36/07/2025 10:15 AM EDTProcedure Visit [facility] [address] [place] [phone] Kelly Bell DPM Onychomycosis (Primary Dx); Pain in both feet; Type II diabetes mellitus with neurological manifestations (HCC)05/17/2025amboo flowsheet [facility] [address] [place] [phone] Kelly Bell DPM 05/17/2025Travelfrom Last 3 Months Family History Medical HistoryRelationNameCommentsStrokeFatherHeart diseaseMaternal Grandfather CancerMaternal GrandmotherCancerMotherHeart diseaseMotherHeart diseasePaternal GrandfatherNo Known ProblemsPaternal GrandmotherRelationNameStatusCommentsFather DeceasedMaternal GrandfatherDeceasedMaternal GrandmotherDeceasedMotherDeceased Paternal GrandfatherDeceasedPaternal GrandmotherDeceased Social History Tobacco UseTypesPacks/DayYears UsedDateSmoking Tobacco: NeverSmokeless Tobacco: Never Tobacco Cessation:Counseling Given: Not Answered Alcohol UseStandard Drinks/WeekCommentsNever0 (1 standard drink = 0.6 oz pure alcohol)caffeine intake:1-2 cups per dayCommentsUnknownSex and Gender InformationValueDate RecordedSex Assigned at BirthNot on fileLegal SexFemale 10/23/2022 7:05 PM EDTGender IdentityNot on fileSexual OrientationNot on file Last Filed Vital Signs Vital SignReadingTime TakenCommentsBlood Oheubmja562/5607 12:00 PM EDT Pulse--Temperature--Respiratory Rate--Oxygen Saturation--Inhaled Oxygen Concentration--Tpoofi85.2 kg (157 lb)09/17/2022 12:00 PM KRFMdbicl601.6 cm (5' 4 )09/17/2022 12:00 PM ESTBody Mass Index26.95009/17/2022 12:00 PM EST Plan of Treatment DateTypeDepartmentCare Team (Latest Contact Info)Wcvesardgtq44/17/2025 11:15 AM ESTProcedure Visit [facility] [address] [place] [phone] Kelly Bell, DPM [address] [place] [address] 10/20/2025 11:15 AM EDTProcedure Visit [facility] [place] [facility] [address] [place] [phone] Kelly Bell, DPM [address] [place] [address] Health MaintenanceDue DateLast DoneCommentsDTaP/Tdap/Td Vaccines (1 - Tdap) 1952Pneumococcal Vaccine: 65+ Years (2 of 2 - PCV20 or PCV21)11/06/2015 11/05/2014COVID-19 Vaccine (4 - season)511/, 09/28/2020, 09/07/2020Influenza Vaccine (#1)/, 05/06/2022, 04/30/2019, Additional history existsHIB VaccinesAged OutNo longer eligible based on patient's age to complete this topicHPV VaccinesAged OutNo longer eligible based on patient's age to complete this topicHepatitis A VaccinesAged OutNo longer eligible based on patient's age to complete this topicHepatitis B VaccinesAged OutNo longer eligible based on patient's age to complete this topicIPV Vaccines Aged OutNo longer eligible based on patient's age to complete this topic Meningococcal B VaccineAged OutNo longer eligible based on patient's age to complete this topicMeningococcal VaccineAged OutNo longer eligible based on patient's age to complete this topicRotavirus VaccinesAged OutNo longer eligible based on patient's age to complete this topic Insurance MemberSubscriberPlan / Payer (Effective 2008-Present)Name:Ariadna Copeland Member ID:[id number] Relation to Subscriber:SelfName:CopelandAriadna Subscriber ID:[id number] Payer ID:[id number] Group ID:Not on file Type:Medicare Address: [place] [phone] Care Teams Team MemberRelationshipSpecialtyStart DateEnd Date Ruiz Yee DO [address] [place] [address] PCP - GeneralInternal Medicine12/07/24
--- OUTSIDE RECORDS SUMMARY | 2025-06-14 14:49 | XMS_ITS | CCD ---
Author Organization [facility] Care Team Providers Care Semaphore Operator Name Role Phone SELF, REFERRED Unavailable Unavailable ZACHARIAH, RUIZ Unavailable Unavailable JACKI LIRA Unavailable Unavailable MARI, KRUNAL Unavailable Unavailable DE Unavailable Unavailable RAMIREZMICKI GARDNER A Unavailable Unavailable DE Unavailable Unavailable CLYDE LIRAR Delia Unavailable Unavailable PHYSICIAN, DEFAULT Unavailable Unavailable PHYSICIAN, DEFAULT Unavailable Unavailable ZACHARIAH, RUIZ Unavailable Unavailable Ruiz Soni Unavailable LIGIA ., DR DUGAN Admitting Unavailable HOY ., DR DUGAN Attending Unavailable BALL, DR ARIAS Primary Care Unavailable SEBASTIÁN, DR LINDA Li Consulting Unavailable HOY ., DR DUGAN Consulting Unavailable PAY ., DR KLEIN Consulting Unavailable WALTON, GIMike Consulting Unavailable BALL, DR ARIAS Admitting Unavailable [...] Admitting Unavailable MASONJAZZ Cristobal Consulting Unavailable RUIZ SONI Primary Care Physician Ruiz Soni MD Primary Care Provider Andry MARQUEZ Attending Unavailable Andry MARQUEZ Attending Unavailable Ruiz Soni MD Primary Care Provider Ruiz Soni DO Primary Care Provider Ruiz Soni DO Attending Provider [phone] Ruiz Soni DO Primary Care Provider Jennifer Garza APRN Attending Provider HCEIKH BELL Attending Unavailable CHEIKH BELL Attending Unavailable SHERITA AREVALO Attending Unavailable CHEIKH BELL Attending Unavailable CHEIKH BELL Attending Unavailable CHEIKH BELL Attending Unavailable Ruiz Soni DO Primary Care Provider Ruiz Soni DO Attending Provider Allergies Allergy ClassificationReported Allergen(s)Allergy TypeDate of OnsetReaction(s) Facility (3 sources)amoxicillin; Translations: [amoxicillin]Drug Gmhncwf92-98-2537JywOhio[facility] (3 sources)amoxicillin / clavulanate; Translations: [Augmentin]Drug Allergy 15-75-4959PxhOhioHealth [facility]ide [facility] (3 sources)codeine; Translations: [codeine]Drug Xwwjtpx65-54-7640JVFJuvOhioHealth Riverside [facility] Hospital Repository (2 sources)desonideDrug Qvwfate43-11-0979AuiOhioHealth [facility]ide [facility] Hospital Repository (13 sources)fexofenadineDrug Jjmiybf92-93-6177XsvOhioHealth [facility]ide [facility] Repository (16 sources)loratadine; Translations: [Claritin]Drug Oqckkvb65-61-8426MmcalbkJyzUniversity [facility] Rep[facility] (3 sources)naproxen; Translations: [Naprosyn]Drug Bdtedvy77-64-7655Xqy [facility] Repository (2 sources)NSAIDsDrug allergy (disorder)18-71-5190LxhOhioHealth Riverside [facility] Hospital Repository (3 sources)omeprazole; Translations: [PriLOSEC]Drug Wjkaesa17-03-3084GjlOhioHealth Riverside [facility] Hospital Repository (13 sources)oxyCODONEDrug Bimgxli86-93-5710Nth [facility] Repository (20 sources)fexofenadine; Translations: [Beckie]Drug Dzwyccu56-84-6683Mbaywgl (qualifier value)[facility] Repository (19 sources)Loratadine; Translations: [loratadine]Drug Yyavzvg80-56-5524Nrhmafi (qualifier value)[facility] (20 sources)oxyCODONEDrug Hszvtyu70-82-9563VwcphdlHwlxv [employer] Other (10 sources)Substance with penicillin structure and antibacterial mechanism of action (substance)Drug allergyOur Lady of Fatima Hospital [employer] Other (18 sources)PCN-200Propensity to adverse reactionsOur Lady of Fatima Hospital [employer] Other (2 sources)Bacitracin / Neomycin / Polymyxin B; Translations: [Neosporin]Drug Nobkdab46-97-5455YsbGreene Memorial Hospital Repository (4 sources)Adhesive Tape; Translations: [Tape][facility]Gen[facility] (3 sources)Amoxicillin; Translations: [amoxicillin]Drug AllergyUnknown (qualifier value)[facility] (3 sources)Amoxicillin / Clavulanate; Translations: [amoxicillin-clavulanate] Drug AllergyUnknown (qualifier value)[facility] (3 sources)bacitracin / neomycin / polymyxin b; Translations: [bacitracin/neomycin/polymyxin B topical]Drug AllergyRedEast [facility] (14 sources)Codeine; Translations: [codeine]Drug Goudatm51-01-7480Jnsggfr (qualifier value)[facility] (18 sources)Ibuprofen; Translations: [ibuprofen]Drug Jnkhils19-05-1976Pfyngah (qualifier value)[facility] (20 sources)Naproxen; Translations: [naproxen]Drug Hjkjyuh79-88-4802Mwcunog (qualifier value), Other, UnknownGuernsey Memorial Hospital (14 sources)Non-steroidal anti-inflammatory agent; Translations: [NSAIDs]Drug geczkes58-03-7788EtrrzgxHppcjyVeterans Health AdministrationComment on above:swelling of lips (14 sources)Omeprazole; Translations: [omeprazole]Drug Ltziefm12-36-8245Xcxeovc (qualifier value)[facility] (10 sources)Acetaminophen / oxyCODONEDrug AllergyoxyCODONE-AcetaminophenNorth [employer] Other (10 sources)Non-steroidal anti-inflammatory agentDrug allergyUnkkindred hospital las [facility]gas – saharaiSoftStone Other (10 sources)PenicillinDrug AllergySaint John's [facility]ree[facility] [employer] Other (2 sources)Beckie AllergyDrug allergySaint John's Breech [facility] [employer] Other (2 sources)patient allergy list reviewed by nurse or physiciaPropensity to adverse cinkgkhxa77-91-3499Uyfcfnu:[employer] Other (10 sources)Claritin-D 12 HourDrug allergyNortheastern CenterVision Chain Incsaint francis hospital & [facility] services [employer] Other (20 sources)PenicillinsAllergy to eftdhetha66-24-1767KbtozjcqkMagruder Memorial Hospital (11 sources)NSAIDS (Non-Steroidal Anti-InflammaAllergy to rpzmavkqt26-94-5185 [facility] (11 sources)Bacitracin / Polymyxin BDrug Kcfponk26-87-8889JVSP Healthcare (11 sources)fexofenadineDrug Yfcehni72-54-5045RdsyctbSKAM Healthcare (11 sources)LoratadineAllergy to -54-0812ESUK [facility] (11 sources)Amoxicillin-Pot ClavulanateDrug Fdzhsmc85-09-6664UHYN Healthcare Work Phone: (11 sources)Wound Dressing AdhesiveDrug Uaiognx91-84-3196MWUA [facility] (1 source)Naproxen; Translations: [Aleve]Drug AllergyOhiohealth Repository (1 source)NSAIDs; Translations: [NSAIDs]Propensity to adverse reactions (disorder)[facility] Medications Current Medications MedicationDrug Class(es)DatesSig (Normalized)Sig (Original)Aspirin (17 sources)Platelet Aggregation Inhibitor, Nonsteroidal Anti-inflammatory Drug Start: 24-12-6957onwzbpc 81 mg, Refills(s) 0 Start Date: 02/10/23 Status: Ordered take 1 tablet by mouth once dailyaspirin 81 MG chewable tablet Chew 1 tablet every day by oral route. Activecholecalciferol 0.025 mg oral capsule (14 sources)Vitamin Dtake 1 capsule by mouth once dailycholecalciferol (Vitamin D-3) 25 MCG (1000 UT) capsule Take 1 capsule every day by oral route. Active Contour Next Test - (18 sources)Contour Next Test - USE 1 STRIP TO CHECK GLUCOSE ONCE DAILY for 90 days DX E11.65 ActiveContour Next Test - USE 1 STRIP TO CHECK GLUCOSE ONCE DAILY for 90 ActiveContour Next Test - as directed In Vitro Activeerythromycin 0.005 mg/mg ophthalmic ointment (14 sources)Macrolide, Macrolide AntimicrobialStart: 81-33-1549tfeqinigtjxi (Romycin) 5 MG/GM ophthalmic ointment APPLY A THIN LAYER INTO LEFT EYE ONE A DAY 05/23/2022 ActivehydroCHLOROthiazide 12.5 mg / lisinopril 10 mg oral tablet (20 sources)Thiazide Diuretic, Angiotensin Converting Enzyme InhibitorStart: 10-02-2023 End: 04-12-3898nkek 1 tablet by mouth once dailyStart: 02-10-2023 hydrochlorothiazide-lisinopril Refill(s) 0 Start Date: 02/10/23 Status: Ordered Start: 98-83-1490KMOZYDECYD-HYDROCHLOROTHIAZIDE PO Refill(s) 0 02/10/2023 Active levoFLOXacin 750 mg oral tablet (14 sources)Quinolone AntimicrobialStart: 13-44-9948hghp 1 tablet by mouth once dailylevoFLOXacin (Levaquin) 750 MG tablet TAKE 1 TABLET BY MOUTH ONCE DAILY FOR 7 DAYS 01/18/2023 ActivemetroNIDAZOLE 500 mg oral tablet (20 sources)Nitroimidazole AntimicrobialStart: 32-85-1048cfqjpLTEOZJRY (Flagyl) 500 MG tablet 02/24/2023 Activemupirocin 0.02 mg/mg topical ointment (20 sources)RNA Synthetase Inhibitor AntibacterialStart: 50-53-8040czebwhydh (Bactroban) 2 % ointment 04/13/2024 ActiveStart: 52-97-0070wfbdploalrt 4 mg disintegrating oral tablet (14 sources)Serotonin-3 Receptor AntagonistStart: 96-48-8477edei 1 tablet by mouth once daily as needed for nausea and vomitingondansetron ODT (Zofran-ODT) 4 MG disintegrating tablet DISSOLVE 1 TABLET IN MOUTH ONCE DAILY NEEDED FOR NAUSEA AND VOMITING FOR 4 DAYS 01/18/2023 Activepantoprazole 40 mg delayed release oral tablet (14 sources)Proton Pump Inhibitortake 1 tablet by mouth once dailypantoprazole (ProtoNix) 40 MG EC tablet Take 1 tablet every day by oral route for 90 days. Activepaxlovid (300/100) 20 x 150 mg & 10 x 100mg tablet therapy pack (2 sources)Start: 81-53-7161Yhfyxesp (300/100) 20 x 150 MG & 10 x 100MG as directed Orally bid for 5 days Jun, Activetamsulosin hydrochloride 0.4 mg oral capsule (14 sources)alpha-Adrenergic BlockerStart: 77-05-7051iivn 1 capsule by mouth every twenty-four hours in the morningtamsulosin (Flomax) 0.4 MG 24 hr capsule Take 0.4 mg by mouth in the morning. 01/18/2023 Activetriamcinolone acetonide 1 mg/ml topical cream (14 sources)Corticosteroidtriamcinolone (Kenalog) 0.1 % cream ActiveVitamin D (3 sources)Start: 31-46-0545Qgvecnt D Refills(s) 0 Start Date: 02/10/23 Status: Ordered{20 (nirmatrelvir 150 MG Oral Tablet) / 10 (ritonavir 100 MG Oral Tablet) } Pack [Paxlovid 5-Day] (2 sources)Start: 64-44-3671Pggehaec (300/100) 20 x 150 MG & 10 x 100MG as directed Orally bid for 5 days Jun, Active Completed/Discontinued Medications MedicationDrug Class(es)DatesSig (Normalized)Sig (Original)atorvastatin 40 mg oral tablet (20 sources)HMG-CoA Reductase InhibitorStart: 02-10-2023 End: 29-07-0263snjh 1 tablet by mouth once dailyAtorvastatin 40 mg tablet Discontinued 40 MG PO Daily October 02, 2023 1:00am August 23:56pm azithromycin 250 mg oral tablet (20 sources)Macrolide AntimicrobialStart: 10-15-2022 End: 91-93-3662Cyrgjubvtxwb 250 mg tablet Discontinued 250 MG PO .COMPLEX 6 5 February 08, 2025 12:00am February 21, 2025 8:39am 2 tabs on first day followed by 1 tab on days 2-5Start: 39-00-9211Ochvomwuzhyg 250 MG as directed Orally daily for 5 days Oct, Not-Taking/PRNciprofloxacin 500 mg oral tablet (20 sources)Quinolone AntimicrobialStart: 71-92-4314jlut 1 tablet by mouth every twelve hoursCiprofloxacin HCl 500 MG 1 tablet Orally every 12 hrs Feb, Not-Taking/PRNStart: 94-91-4633Wyyma 500 MG tablet See Instructions, Take 1 tab day prior to procedure and 1 tab day of procdure -afterwards, # 2 tab(s), Refills(s) 0, Pharmacy: [place] [id number] 01/22/2023 Activedoxycycline monohydrate 100 mg oral tablet (20 sources)Tetracycline-class DrugStart: 02-21-2025 End: 91-69-6394bbzl 1 tablet by mouth twice dailyDoxycycline Monohydrate 100 mg tablet Discontinued 100 MG PO Twice daily 30 05February 21, 2025 12:00am March 07, 2025 10:36amStart: 04-30-2024 End: 09-82-8003fezx 1 capsule by mouth onceDoxycycline Hyclate 100 mg capsule Discontinued 100 MG PO Once 14 June 28, 2024 3:25pm October 25, 2024 11:11amStart: 04-13-2024 End: 84-97-6107ntle 1 capsule by mouth twice dailyDoxycycline Hyclate 100 mg capsule Discontinued 100 MG PO Twice daily 30 05April 21, 2024 12:31pm April 30, 2024 11:17amlevothyroxine sodium 0.075 mg oral tablet (20 sources)l-ThyroxineStart: 67-61-0285iopauwkfpmdup 75 mcg (0.075 mg) Tab Refills(s) 0 Start Date: 02/10/23 Status: OrderedStart: 02-10-2023 End: 76-30-2154esaj 1 tablet by mouth once dailyLevothyroxine 75 mcg tablet Discontinued 75 MCG PO Daily October 02, 2023 1:00am August 23, 2024 1:56pmmetFORMIN hydrochloride 500 mg oral tablet (20 sources)BiguanideStart: 10-02-2023 End: 82-92-5817dyjb 1 tablet by mouth twice dailyMetformin 500 mg tablet Discontinued 500 MG PO Twice daily 180 90 December 02, 2023 12:44pm August 23, 2024 1:56pmStart: 02-14-4364nvugvgypk 500 mg, Refills(s) 0 Start Date: 02/10/23 Status: Orderedtake 1 tablet by mouth every twenty-four hoursmetFORMIN HCl 500 MG 1 tablet with a meal Orally Once a day for 90 days Qmprqz73 hr metoprolol succinate 25 mg extended release oral tablet (20 sources)beta-Adrenergic BlockerStart: 02-10-2023 End: 22-10-4414wyok 1 tablet by mouth once dailyMetoprolol Succinate 25 mg tablet extended release 24 hr Discontinued 25 MG PO Daily September 1:00am August 23, 2024 1:56pmSuprep Bowel Prep . (18 sources)Start: 04-14-0400Uiycby Bowel Prep . as directed Orally as directed for 1 dose(s) Apr, Not-Taking/PRNStart: 24-40-7861Ywmezz Bowel Prep . as directed Orally as directed for 1 dose(s) Apr, Not-Taking Problems Active Problems Problem ClassificationProblemDateDocumented DateEpisodic/ChronicAbdominal pain (20 sources)Abdominal pain; Translations: [Abdominal pain]Onset: 03-22-2014 EpisodicAcute bronchitis (16 sources)Acute bronchitis due to other specified organisms; Translations: [Acute bronchitis]Onset: 47-66-7321AjuqjhuoEnedo myocardial infarction (7 sources)Non-ST elevation (NSTEMI) myocardial infarction; Translations: [Acute non-ST segment elevation myocardial infarction]Onset: 73-64-4205VxcmsibUclywyu disorders (20 sources)Generalized anxiety disorder; Translations: [Generalized anxiety disorder]ChronicCalculus of urinary tract (20 sources)Personal history of urinary calculi; Translations: [Kidney stone] Onset: 04-79-1602YfsqbetxUqotavyh (1 source)Artificial lens present; Translations: [Presence of intraocular lens] 57-91-7249CfsiosxXfoxevnzebs and hemorrhagic disorders (1 source)Acquired coagulation factor inhibitor disorder; Translations: [Other hemorrhagic disorder due to intrinsic circulating anticoagulants, antibodies, or inhibitors]52-78-1243BrogxjvDjdwiietid heart failure; nonhypertensive (1 source)Unspecified systolic (congestive) heart failure; Translations: [UNSPECIFIED SYSTOLIC (CONGESTIVE) HEART FAILURE]Onset: 71-27-1607Sdfdrpy Coronary atherosclerosis and other heart disease (20 sources)Coronary arteriosclerosis; Translations: [Atherosclerotic heart disease of cheesh-na coronary artery without angina pectoris]Onset: 09-25-2017 ChronicDiabetes mellitus with complications (20 sources)Hyperglycemia due to type 2 diabetes mellitus; Translations: [Type 2 diabetes mellitus with hyperglycemia]Onset: 19-08-9203ZyhacylFfryuhqi mellitus without complication (8 sources)Type 2 diabetes mellitus without complications; Translations: [Type 2 diabetes mellitus without complication]Onset: 456173-87-2251Rszdavf Diabetes mellitus without complication (2 sources)Hyperglycemia, unspecified; Translations: [Impaired fasting glucose] Onset: 60-08-9816OoekxjolChtmdhpk of mouth; excluding dental (20 sources)Plicated tongue; Translations: [Plicated tongue]EpisodicDisorders of lipid metabolism (20 sources)Hyperlipidemia, unspecified; Translations: [Pure hypercholesterolemia]Onset: 86-94-0340SjlcjfhDavicedrobuzxf and diverticulitis (12 sources)Diverticular disease; Translations: [Diverticulosis]Onset: 31-93-9787IgipxkoQwtcjskc; convulsions (2 sources)Qyewxwv01-17-3535SuleoodbRjddmojcgn disorders (20 sources)Gastro-esophageal reflux disease with esophagitis; Translations: [Gastroesophageal reflux disease with esophagitis without hemorrhage]10-02-2023 ChronicEssential hypertension (20 sources)Essential (primary) hypertension; Translations: [Essential hypertension]Onset: 78-45-9195OzdeojdGzbog and electrolyte disorders (16 sources)Dehydration; Translations: [Hypo-osmolality and hyponatremia]Onset: 65-17-5554HgatmecpMranuvwpywdkj symptoms and ill-defined conditions (2 sources)Stress incontinence (female) (male); Translations: [Female stress incontinence]Onset: 98-70-8720PxjkeoyPgwjetbgqkiao symptoms and ill-defined conditions (4 sources)Dysuria; Translations: [Dysuria]EpisodicHypertension with complications and secondary hypertension (1 source)Hypertensive heart disease with heart failure; Translations: [HYPERTENSIVE HEART DISEASE WITH HEARTFAILURE]Onset: 10-74-7628Dpsohqu Immunizations and screening for infectious disease (4 sources)Vaccination given; Translations: [Encounter for immunization]Episodic Intestinal infection (20 sources)Clostridial enteric disease; Translations: [Enterocolitis due to Clostridium difficile, not specified as recurrent]Onset: 27-15-9555Mybowxqu Menopausal disorders (8 sources)Primary ovarian failure; Translations: [Other primary ovarian failure]Onset: 53-88-2204EvcapcjBvawsqd (6 sources)Onychomycosis; Translations: [Tinea unguium]76-50-8077Pkiqfved Nutritional deficiencies (4 sources)Vitamin D deficiency; Translations: [Vitamin D deficiency, unspecified]Onset: 32-29-6914ZdkfqomCmpw wounds of extremities (14 sources)Laceration of lower limb; Translations: [Laceration without foreign body, right lower leg, initial encounter]97-60-7197SzbfymciVnapyrzriwzgtw (20 sources)Arthritis of joint of left shoulder region; Translations: [Primary osteoarthritis, left shoulder]Onset: 19-78-1262MmfnephQtvqf aftercare (2 sources)Other detention (current) drug therapy; Translations: [OTH CORRECTION CURRENT DRUG THERAPY]Onset: 13-79-9105MiilukgiVcsxk aftercare (4 sources)Long-term current use of drug therapy; Translations: [Other terminal system operator (current) drug therapy]EpisodicOther and ill-defined heart disease (1 source)Takotsubo syndrome; Translations: [TAKOTSUBO SYNDROME]Onset: 66-79-9420HfvpifaQrhcm and ill-defined heart disease (4 sources)Takotsubo cardiomyopathy; 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]Chronic Other and unspecified benign neoplasm (10 sources)History of polyp of colon; Translations: [History of colon polyps] EpisodicOther and unspecified benign neoplasm (4 sources)Polyp of colon; Translations: [Polyp of colon]EpisodicOther circulatory disease (18 sources)Abdominal bruit; Translations: [Other specified symptoms and signs involving the circulatory and respiratory systems]EpisodicOther circulatory disease (4 sources)Cardiovascular symptoms; Translations: [Other specified symptoms and signs involving the circulatory and respiratory systems]EpisodicOther connective tissue disease (6 sources)Pain in both feet; Translations: [Pain in right foot]05-17-2024 EpisodicOther injuries and conditions due to external causes (4 sources)History of fall; Translations: [History of falling]EpisodicOther non- traumatic joint disorders (2 sources)Lower limb joint arthritis; Translations: [Osteoarthrosis, unspecified whether generalized or localized, lower leg]Onset: 94-09-3571Dmgdpdb Other screening for suspected conditions (not mental disorders or infectious disease) (20 sources)Encounter for screening mammogram for malignant neoplasm of breast; Translations: [Other specified abnormal findings of blood chemistry]Onset: 14-65-9398EfcvfmltPcncq skin disorders (1 source)Callosity; Translations: [Corns and callosities]79-86-4837Vshdpwqp Other upper respiratory infections (4 sources)Maxillary sinusitis; Translations: [Chronic maxillary sinusitis] 46-90-6439UohkjmmUyeeq upper respiratory infections (20 sources)Acute abscess of maxillary sinus; Translations: [Acute maxillary sinusitis, unspecified]Onset: 81-32-4736DpquruhzWjbkqmqm codes; unclassified (18 sources)Family history of malignant neoplasm of thyroid; Translations: [Family history of malignant neoplasm of other organs or systems]Episodic Residual codes; unclassified (19 sources)Asymptomatic menopausal state; Translations: [Menopause]Onset: 58-90-0527WujohovnMjodoanp codes; unclassified (2 sources)Requires influenza virus vaccination; Translations: [Need for prophylactic vaccination and inoculation, Influenza]EpisodicResidual codes; unclassified (4 sources)Family history of cancer; Translations: [Family history of malignant neoplasm of other organs or systems]EpisodicResidual codes; unclassified (4 sources)Postmenopausal state; Translations: [Asymptomatic menopausal state] EpisodicResidual codes; unclassified (4 sources)Procedure not done; Translations: [Procedure and treatment not carried out because of patient's decision for unspecified reasons]EpisodicSkin and subcutaneous tissue infections (15 sources)Cutaneous abscess of perineum; Translations: [Cellulitis of leg, excluding foot]EpisodicSystemic lupus erythematosus and connective tissue disorders (2 sources)Autoimmune disease; Translations: [Autoimmune disease, not elsewhere classified]Onset: 08-12-0151TkysjjoYwcbedo disorders (20 sources)Hypothyroidism, unspecified; 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]Onset: 94-01-0442DfffrnqFshascg on above:US: right 1.2cm TR3 - 04/2024Unclassified (2 sources)Unknown / UNK(Unknown)Onset: 91-53-6300Jnheuqwzauul (3 sources)CONTACT W/AND (SUSP) EXPOS COVID-19; Translations: [CONTACT W/AND (SUSP) EXPOS COVID-19]Onset: 47-98-4091Oblypregntcp (2 sources)COUGH, UNSPECIFIED; Translations: [COUGH, UNSPECIFIED]Onset: 92-35-0686Jdjbzkbfqvsp (2 sources)Long-term current use of drug therapy; Translations: [Long-term (current) use of other medications]Onset: 92-26-5830Arpzcdtdtqax (4 sources)Acute candidiasis of vulva and vagina; Translations: [Acute candidiasis of vulva and vagina]Unclassified (4 sources)Exposure to acute respiratory syndrome coronavirus 2; Translations: [Contact with and (suspected) exposure to COVID-19]Urinary tract infections (18 sources)Acute cystitis; Translations: [Acute cystitis without hematuria] Episodic Past or Other Problems Problem ClassificationProblemDateDocumented DateEpisodic/ChronicAllergic reactions (9 sources)Allergy status to narcotic agent status; Translations: [Allergy status to other drugs, medicaments and biological substances status]Onset: 61-97-6242EnppgjtgHrslzzmeu infection; unspecified site (2 sources)Bacterial infectious disease; Translations: [Bacterial infection, unspecified, in conditions classified elsewhere and of unspecified site]Onset: 74-99-9318IxvsumrnHlggprehex and other anemia (4 sources)Anemia; Translations: [Anemia, unspecified]Onset: 74-15-5980Crqlccmp Esophageal disorders (20 sources)Esophageal disorders; Translations: [Gastroesophageal reflux disease with esophagitis without hemorrhage]Malaise and fatigue (3 sources)Weakness; Translations: [Malaise and fatigue]Onset: 11-22-2014 EpisodicOther aftercare (1 source)alf (current) use of aspirin; Translations: [CORRECTION CURRENT USE OF ASPIRIN]Onset: 59-94-8480KwoehmdfTqwzk aftercare (1 source)alf (current) use of oral hypoglycemic drugs; Translations: [CORRECTION USE ORAL HYPOGLYCEMIC DX]Onset: 62-43-6960SfahvdmoEhxql bone disease and musculoskeletal deformities (1 source)Other specified disorders of bone density and structure, other site; Translations: [OTH D/O BONE DEN STRUCT OTH SITE]Onset: 70-32-0963GtlbyagtLnxxd connective tissue disease (2 sources)Muscle, ligament and fascia disorders; Translations: [Other disorder of muscle, ligament, and fascia]Onset: 93-62-7392JoeylosiZfpqv gastrointestinal disorders (3 sources)Diarrhea, unspecified; Translations: [DIARRHEA UNSPECIFIED]Onset: 83-49-5636OmbvhrifFvbdt gastrointestinal disorders (4 sources)Constipation; Translations: [Constipation, unspecified]Onset: 00-38-7171DhqvvbwwDltwm liver diseases (1 source)Abnormal levels of other serum enzymes; Translations: [ABNORMAL LEVELS OTHER SERUM ENZYMES]Onset: 40-76-7387YdwbnfvmJrucx lower respiratory disease (1 source)Shortness of breath; Translations: [SHORTNESS OF BREATH]Onset: 10-59-6932EdvnfzlhKokfv non-traumatic joint disorders (2 sources)Arthralgia of the lower leg; Translations: [Pain in joint, lower leg] Onset: 25-93-0056PvgwnfmwHzwyp non-traumatic joint disorders (4 sources)Pain in right hip joint; Translations: [Pain in right hip]Onset: 52-35-8785JcpvuflgFwjyy nutritional; endocrine; and metabolic disorders (2 sources)Body mass index 25-29 - overweight; Translations: [Body mass index 26.0-26.9, adult]Onset: 13-20-7558UqgobxeyTgizi nutritional; endocrine; and metabolic disorders (4 sources)Overweight; Translations: [Overweight]Onset: 06-11-2022 Resolved: 64-16-0546IafdcyopTjbjd skin disorders (2 sources)Atrophoderma; Translations: [Unspecified hypertrophic and atrophic condition of skin]Onset: 64-72-9503JjaxiurhBlbzl skin disorders (4 sources)Asteatosis cutis; Translations: [Xerosis cutis]Onset: 10-27-2015 EpisodicOther skin disorders (4 sources)Other seborrheic keratosis; Translations: [Seborrheic keratosis] Onset: 10-23-7015UzhmdscoXmgtc upper respiratory disease (4 sources)Bleeding from nose; Translations: [Epistaxis]Onset: 08-15-2014 EpisodicPneumonia (except that caused by tuberculosis or sexually transmitted disease) (1 source)Pneumonia, unspecified organism; Translations: [PNEUMONIA UNSPECIFIED ORGANISM]Onset: 91-34-9539NtkchszxSovjoxgg codes; unclassified (1 source)Family history of malignant neoplasm of breast; Translations: [FAMILY HX MALIG NEOPLASM OF BREAST]Onset: 49-46-8014VndmgxnhOfxfgtkh codes; unclassified (1 source)Acquired absence of other specified parts of digestive tract; Translations: [ACQ ABSENCE OTH PART DIGESTV TRACT]Onset: 47-70-4733Khthqzbp Residual codes; unclassified (1 source)Acquired absence of both cervix and uterus; Translations: [ACQUIRED ABSENCE BOTH CERVIX AND UTERUS]Onset: 09-08-2327QzujcnghPoyldki and strains (8 sources)Strain of muscle of right hip; Translations: [Strain of muscle, fascia and tendon of right hip, initial encounter]Onset: 40-56-2658Wsppypeg Unclassified (1 source)CONTACT W/AND (SUSP) EXPOS COVID-19; Translations: [CONTACT W/AND (SUSP) EXPOS COVID-19]Onset: 61-75-4990Coilqfgnnfad (1 source)COUGH, UNSPECIFIED; Translations: [COUGH, UNSPECIFIED]Onset: 69-11-5047Vsskmrrzpijs (2 sources)Obstructive ebtdpfqlqpslsl48-03-6092Rqtlr infection (20 sources)Disease caused by 2019-nCoV; Translations: [COVID-19]Onset: 12-28-2021 Results Test NameValueInterpretationReference IuugfMdaahstpUoH7i HPLC (Bld) [Mass fraction]Ordered By: Ruiz Soni on 88-42-8821RgC9j (Bld) [Mass fraction]6.7 % [facility] HospitalAmbulatory Visit Summaryon 33-80-4172Mupgclqvzt Visit SummaryAmbulatory Visit Summary ARIADNA COPELAND :1945 Visit Date:08/24/2024 Ambulatory Visit Instructions Your Care Team Primary Care Physician - RUIZ SONI DO This Is Your Medications List aspirin [...] you for choosing us for your care. [facility] HospitalReminderson [phone] Reminders From: Norah Dawson To: EU - Administrative; Sent: 08/24/2024 11:00:57 EST Show up: 11/07/2025 11:00:00 EDT Subject: 18 MO KUB Due Date/Time: 02/20/2026 11:00:00 EDT Reminder/Recall SCHEDULE W/ MADDI IN 18 MO AND [facility]FREN[facility] BeachwoodUrology Office/Clinic Noteon 37-48-6038Hmxzlip Office/Clinic NoteUrology Office/Clinic Note Chief Complaint 1 yr F/U w/KUB HPI Staff 1 year follow up w/KUB Previous DX: kidney stone, ureteral stone w/hydronephrosis S/P cysto/LT RG/holmium laser/basket/stent done on 01/17/23, cysto/LT stent removal done on 02/10/23. kub done at [place] yesterday Dysuria: denies Incomplete bladder emptying: denies [...] and history for this patient from Dr. Marquez. I have reviewed and verified the staff [...] (N20.0: Calculus of kidney) Urology consult at [facility] 01/17/23 due to L flank pain. CT [...] hour, rare UUI, no FI, feels she emptiescompletely, yes LUIS FELIPE. -Not addressed today. The patient is here with her today. She has had no kidney stones or flank pain since last visit. Abdominal x-ray is negative for any obvious calculi. I feel we can now go 18 months with a KUBwith one of our JOSE's. Follow-up With When Contact Information JEISON HEARN, Andry P, URL [address] [address]- Additional Instructions: 18 mos with KUB (not ordered, >1yr) Patient Education Dietary Guidelines to Help Prevent Kidney Stones I, Vicky Barth, personally scribed for Dr. Marquez on 08/24/2024 10:21:52. . Documentation recorded by the scribe, Vicky Barth, accurately reflects the services(s) I performed and decisions made by me. Authenticated by Dr. Marquez on 08/24/2024 10:29:04. Portions of this record may have been created with voice recognition artificial intelligence software, specifically [employer], Doormen. and or Jober[employer]. Substitutions may have occurred due to the [...] virus vaccine, inactivated 2022 Recorded SARS-CoV-2 (COVID-19) mRNAMUL.ORD![id number] 07/08/2022 Recorded influenza virus va (more content not included)...[facility] HospitalComment on above:Result Comment: Electronically Signed By: Andry MARQUEZ MD P\.br\Date and Time Signed: 08/24/24 10:29 EST\.br\Electronically Co- Signed By: Vicky Barth P\.br\Date and Time Co-Signed: 08/24/24 10:22 EST\.br\Electronically Co-Signed By: Vicky Barth P\.br\Date and Time Co- Signed: 08/24/24 10:23EST\.br\Electronically Co-Signed By: Vicky Barth\.br\Date and Time Co-Signed: 08/24/24 10:26 ESTBasophils Auto (Bld) [#/Vol]on 83-21-2042Kykddfnhd (Bld) [#/Vol]0.1 10 3/uL0.0-0.1FUniversity Hospitals Health SystemBasophils (Bld) [#/Vol]Automated basophil count0.0-0.1FUniversity Hospitals Health SystemBasophils/100 WBC Auto (Bld)on 85-16-1191Gjhfrfgkv/100 WBC (Bld) 0.7 %0.2-2.0[facility] HospitalBasophils/100 WBC (Bld)Automated basophil %0.2-2.0[facility] HospitalCholesterol in LDL Calc [Mass/Vol]on 97-80-6770Aiwegcdjxzn in LDL [Mass/Vol]38.0 mg/dLMagruder Memorial HospitalComment on above:<100 mg/dl OCNVIMK897-446 mg/dl NEAR OR ABOVE BZMAGFT074-909 mg/dl BORDERLINE WFYS541-086 mg/dl HIGH>190 mg/dl VERY HIGH Cholesterol in LDL [Mass/Vol]Cholesterol in LDL [Mass/volume] in Serum or Plasma by calculationMagruder Memorial HospitalComment on above:<100 mg/dl KJSWAHF120-425 mg/dl NEAR OR ABOVE MEDAJPG476-492 mg/dl BORDERLINE SMUL990-636 mg/dl HIGH>190 mg/dl VERY HIGHCholesterol in VLDL Calc [Mass/Vol]on 04-21-2024 Cholesterol in VLDL [Mass/Vol]22.4 mg/dLMagruder Memorial Hospital Cholesterol in VLDL [Mass/Vol]Cholesterol in VLDL [Mass/volume] in Serum or Plasma by calculationMagruder Memorial HospitalEosinophils/100 WBC Auto (Bld)on 60-79-6517Qkazcdldkyx/100 WBC (Bld)8.1 %High0.9-7.0[facility] HospitalEosinophils/100 WBC (Bld)Automated eosinophil %High0.9-7.0 [facility] HospitalErythrocyte distribution width Auto (RBC) [Ratio]on 96-43-9754Ywjxikwucuf distribution width (RBC) [Ratio]12.8 %11.0-15.0 [facility] HospitalErythrocyte distribution width (RBC) [Ratio] Erythrocyte distribution width [Ratio] by Automated count11.0-15.0[facility] HospitalEstimated glomerular filtration rate (GFR) non- Americanon 80-05-6775KVK/1.73 sq M.predicted among non-blacks MDRD (S/P/Bld) [Vol rate/Area]mL/min/{1.73_m2}>=60[facility] HospitalGFR/1.73 sq M.predicted among non-blacks MDRD (S/P/Bld) [Vol rate/Area]Estimated glomerular filtration rate (GFR) non->=60[facility] Globulin Calc (S) [Mass/Vol]on 38-53-7287Qqorlzxr (S) [Mass/Vol]3.3 g/dL [facility] HospitalGlobulin (S) [Mass/Vol]Serum globulin measurement by calculation (mass/volume)[facility] HospitalGlucose mean value [Mass/volume] in Blood Estimated from glycated hemoglobinon 90-60-0778Kurpxkf glucose Estimated from glycated hemoglobin (Bld) [Mass/Vol]151 mg/dLMagruder Memorial HospitalAverage glucose Estimated from glycated hemoglobin (Bld) [Mass/Vol]Glucose mean value [Mass/volume] in Blood Estimated from glycated hemoglobinMagruder Memorial HospitalHematocrit Auto (Bld) [Volume fraction]on 35-99-4501Tizmhvcboo (Bld) [Volume fraction]39.9 %36.0-48.0 [facility] HospitalHematocrit (Bld) [Volume fraction]Hematocrit [Volume Fraction] of Blood by Automated count36.0-48.0[facility] HospitalHemoglobin [Mass/volume] in Bloodon 09-99-1763Acbburynra (Bld) [Mass/Vol] 13.0 g/dL12.0-16.0[facility] HospitalHemoglobin (Bld) [Mass/Vol] Hemoglobin [Mass/volume] in Blood12.0-16.0[facility] Laboratory - Chemistry and Chemistry - challengeon 18-90-1093Tkirffx [Mass/Vol] 3.9 g/dL3.4-5.0[facility] HospitalALP [Catalytic activity/Vol]75 U/L95-065XkkjtkvprMagruder Memorial HospitalALT [Catalytic activity/Vol]22 U/L 14-59[facility] HospitalAST [Catalytic activity/Vol]16 U/L15-37 [facility] HospitalBilirubin [Mass/Vol]0.8 mg/dL0.2-1.0[facility] HospitalCalcium [Mass/Vol]9.6 mg/dL8.5-10.1FUniversity Hospitals Health SystemChloride [Moles/Vol]102 mmol/Y97-377IxyuoakymMagruder Memorial HospitalCholesterol [Mass/Vol]136 mg/dL<=200[facility] Cholesterol in HDL [Mass/Vol]76 mg/hQYotb56-74MatutwdthMagruder Memorial Hospital Comment on above:> or =60 mg/dl - LOW CARDIOVASCULAR RISK<40 mg/dl - HIGH CARDIOVASCULAR RISKCO2 [Moles/Vol]30.5 mmol/L21.0-32.0[facility] HospitalCreatinine [Mass/Vol]0.86 mg/dL0.55-1.02[facility] GFR/1.73 sq M.predicted MDRD (S/P/Bld) [Vol rate/Area]mL/min/{1.73_m2}>=60 [facility] HospitalGlucose [Mass/Vol]146 mg/mVTijp13-900KujaaheiiMagruder Memorial HospitalPotassium [Moles/Vol]3.5 mmol/L3.5-5.1FUniversity Hospitals Health SystemProtein [Mass/Vol]7.2 g/dL6.4-8.2FUniversity Hospitals Health System Sodium [Moles/Vol]142 mmol/X968-930XfmbpimwpMagruder Memorial HospitalTriglyceride [Mass/Vol]112 mg/dL<=150[facility] HospitalTSH Qn0.505 m[IU]/L 0.358-3.740[facility] HospitalUrea nitrogen [Mass/Vol]22.0 mg/dL High7.0-18.0[facility] HospitalUrea nitrogen/Creatinine [Mass ratio]25.6 mg/mgMagruder Memorial HospitalLaboratory - Hematology and Cell countson 41-75-4370ImA0j (Bld) [Mass fraction]6.9 %High4.5-6.2FUniversity Hospitals Health SystemComment on above:ADA RECOMMENDED LIMIT 4.0 - 6.0ADA THERAPEUTIC TARGET < 7.0ACTION SUGGESTED> 7.0Immature granulocytes/100 WBC (Bld) 0.7 %High0.0-0.5FUniversity Hospitals Health SystemLeukocytes [#/volume] corrected for nucleated erythrocytes in Blood by Automated counon 97-14-9354DRE corrected for nucl RBC Auto (Bld) [#/Vol]8.6 10 3/uL4.0-11.0[facility] HospitalWBC corrected for nucl RBC Auto (Bld) [#/Vol]Leukocytes [#/volume] corrected for nucleated erythrocytes in Blood by Automated coun4.0-11.0[facility] HospitalLymphocytes Auto (Bld) [#/Vol]on 93-27-5133Ftlayvzlawk (Bld) [#/Vol]3.1 10 3/uL1.2-3.8[facility] HospitalLymphocytes (Bld) [#/Vol]Lymphocytes [#/volume] in Blood by Automated count1.2-3.8[facility] HospitalLymphocytes/100 WBC Auto (Bld)on 04-21-2024 Lymphocytes/100 WBC (Bld)36.2 %20.5-60.0[facility] Lymphocytes/100 WBC (Bld)Lymphocytes/100 leukocytes in Blood by Automated count 20.5-60.0[facility] Auto (RBC) [Entitic mass]on 10-40-8076LHL (RBC) [Entitic mass]30.8 pg26.7-34.0[facility] (RBC) [Entitic mass]MCH [Entitic mass] by Automated count26.7-34.0 [facility] Auto (RBC) [Mass/Vol]on 79-56-3505WGSW (RBC) [Mass/Vol]32.6 g/dL29.9-35.2FUniversity Hospitals Geauga Medical CenterHC (RBC) [Mass/Vol]MCHC [Mass/volume] by Automated count29.9-35.2FUniversity Hospitals Geauga Medical CenterV Auto (RBC) [Entitic vol]on 77-42-3091CNL (RBC) [Entitic vol] 94.5 fL81.0-99.0[facility] HospitalV (RBC) [Entitic vol]MCV [Entitic volume] by Automated count81.0-99.0[facility] Microalbumin [Mass/volume] in Urineon 90-64-5201Pcwrhum DL <= 20 mg/L (U) [Mass/Vol]4.6 mg/dL<=30.0[facility] HospitalAlbumin DL <= 20 mg/L (U) [Mass/Vol]Microalbumin [Mass/volume] in Urine<=30.0[facility] HospitalMonocytes Auto (Bld) [#/Vol]on 17-71-5486Djahotniw (Bld) [#/Vol] 0.6 10 3/uL0.3-0.8[facility] HospitalMonocytes (Bld) [#/Vol] Automated blood monocyte count0.3-0.8[facility] Monocytes/100 WBC Auto (Bld)on 72-34-3000Xilpscprq/100 WBC (Bld)7.0 %1.7-12.0 [facility] HospitalMonocytes/100 WBC (Bld)Automated monocyte % 1.7-12.0[facility] HospitalNeutrophils Auto (Bld) [#/Vol]on 34-03-4065Xqisiblefeb (Bld) [#/Vol]4.1 10 3/uL1.4-6.5FUniversity Hospitals Health SystemNeutrophils (Bld) [#/Vol]Neutrophils [#/volume] in Blood by Automated count1.4-6.5FUniversity Hospitals Health SystemNeutrophils/100 WBC Auto (Bld)on 81-68-3988Xxopgsmrond/100 WBC (Bld)47.3 %43.0-75.0[facility] HospitalNeutrophils/100 WBC (Bld)Automated neutrophil %43.0-75.0[facility] HospitalNo Panel Informationon 68-95-4805Cyinyealrsz # (Auto)0.7 10 3/uL 0.0-0.7FUniversity Hospitals Health SystemImmature Granulocyte # (Auto)0.06 10 3/uLHigh0.00-0.03[facility] HospitalPlatelet mean volume Auto (Bld) [Entitic vol]on 21-52-6089Yhgyzwqe mean volume (Bld) [Entitic vol]11.0 fL 9.5-13.5FUniversity Hospitals Health SystemPlatelet mean volume (Bld) [Entitic vol]Platelet mean volume [Entitic volume] in Blood by Automated count9.5-13.5 [facility] HospitalPlatelets Auto (Bld) [#/Vol]on 04-21-2024 Platelets (Bld) [#/Vol]287 10 3/jK442-703SjpztceseMagruder Memorial Hospital Platelets (Bld) [#/Vol]Platelets [#/volume] in Blood by Automated lpbxi951-216 [facility] HospitalRBC Auto (Bld) [#/Vol]on 59-96-7563UYM (Bld) [#/Vol]4.22 10 6/uL4.20-5.40[facility] HospitalRBC (Bld) [#/Vol] Erythrocytes [#/volume] in Blood by Automated count4.20-5.40[facility] Medical Centererum or plasma albumin/globulin mass ratioon 04-21-2024 Albumin/Globulin [Mass ratio]1.2 {ratio}[facility] Albumin/Globulin [Mass ratio]Serum or plasma albumin/globulin mass ratio [facility] Centererum or plasma anion gap determinationon 73-48-8913Euero gap [Moles/Vol]13.0 mmol/LFUniversity Hospitals Health SystemAnion gap [Moles/Vol]Serum or plasma anion gap determinationAshtabula County Medical Centererum or plasma total cholesterol/high density lipoprotein (HDL) cholesterol mass jaida 95-60-3631Pcidsyqzhxe.total/Cholesterol in HDL [Mass ratio]1.8 {ratio}[facility] HospitalComment on above:3.3 - 4.4 LOW RISK4.4 - 7.1 AVERAGE RISK7.1 - 11.0 MODERATE RISK>11.0 HIGH RISK Cholesterol.total/Cholesterol in HDL [Mass ratio]Serum or plasma total cholesterol/high density lipoprotein (HDL) cholesterol mass ratMagruder Memorial HospitalComment on above:3.3 - 4.4 LOW RISK4.4 - 7.1 AVERAGE RISK7.1 - 11.0 MODERATE RISK>11.0 HIGH RISKGlucose mean value [Mass/volume] in Blood Estimated from glycated hemoglobinon 37-08-6536Yfvixot glucose Estimated from glycated hemoglobin (Bld) [Mass/Vol]154 mg/dLMagruder Memorial HospitalLaboratory - Hematology and Cell countson 62-12-5061VvJ6w (Bld) [Mass fraction]7.0 %4.5-6.2FUniversity Hospitals Health SystemComment on above:ADA RECOMMENDED LIMIT 4.0 - 6.0ADA THERAPEUTIC TARGET < 7.0ACTION SUGGESTED> 7.0 Formson [id number]#1.00TIFFNormal [facility] Medical Centerulatory Visit Summaryon 15-83-1800Ihlhgonjbs Visit Summary ARIADNA COPELAND :1945 Visit Date:09/02/2023 Ambulatory Visit Instructions Your Diagnosis Ureteral calculus Flank pain Personal history of kidney stones Tests Performed Urnls Dip Stick Auto w/o Microscopy POC 65686 XR Abdomen 1 View -- Results Pending -- Please visit your patient portal for your results or contact your primary care physician. Your Care Team Attending Physician - Andry MARQUEZ MD Primary Care Physician - RUIZ SONI DO This Is Your Medications List Contact [...] Appointments Friday 9:45 AM EST With: Andry MARQUEZ MD [facility] HospitalPatient Educationon 12-60-0930Rwbylwe EducationNephrology Dietary Guidelines to Help Prevent Kidney Stones [...] ? 8 oz (237 mL) of milk, jgevylz-tgzhuugkpkku-sedxm milk, and calcium- fortifiedfruit juice. Calcium-fortified means [...] Spinach (cooked), rhubarb, beets, sweet potatoes, and Israeli chard. ? Peanuts. ? Potato chips, martiniquais fries, and baked potatoes with skin on. ? Nuts and nut products. ? Chocolate. ? If you regularly take a diuretic medicine, make sure to eat at least 1 or 2 servings of fruits orvegetables that are high in potassium each day. These include: ? Avocado. ? Banana. ? [place], prune, carrot, or tomato juice. ? Baked [...] with your dietitian to find an eating planand weight loss strategies that work best for you. General information ? Talk to your health care provider and dietitian about taking daily supplements. Depending on yourhealth and the cause of your kidney stones, you may be told: ? Do not take high-dose supplements of vitamin C (1,000 mg a day or more). ? To take a calcium supplement. ? To take a daily probiotic supplement. ? To take other supplements such as magnesium, fish oil, or vitamin B6. ? Take kqad-tko-wclqlhx and prescription medicines only as told by your health care provider. Theseinclude supplements. What foods sh (more content not included)...[facility] Office/Clinic Noteon 75-40-3061Xkgncqi Office/Clinic NoteChief Complaint Follow up to [facility] w/ KUB HPI Staff Ariadna is a 78 y.o. female new patient here for 6 month follow up w/ KUB. Pt was seen for urology consult @ [facility] on 01/17/23 for left sided flank pain. CT scan done on 01/17/23 showed 7mm stone in the leftlower ureter. S/P cysto/LT RG/holmium laser/basket/stent done on [...] Pt was seen for urology consult @ [facility] on 01/17/23 for left sided flank pain. CT scan done on 01/17/23 showed 7mm stone in the left lower ureter. S/P cysto/LT RG/holmium laser/basket/stent done on 01/17/23, Stone Analysis - CaOx [place] 80% and CaOx [place] 20% S/p cysto/LT stent removal done on 02/10/23. KUB done on 08/20/23 showed no stones. Pt denies any signs of stones since her stent removal. UA today shows small leuks and no signs of blood. Discussed imaging results with pt, no stones noted. Advised pt that we will continue to monitor dueto the higher chance of more stones being formed in the future. Advised pt that if she forms stonesin the future, then we could do a [...] while, can be walking when she gets it.Advised pt that if it is activity related, [...] KUB Follow-up With When Contact Information Andry MARQUEZ MD, URL In [address] [address]- Additional Instructions: w/KUB Patient Education Dietary Guidelines to Help Prevent Kidney Stones I, Desi Liu, personally scribed for Dr. Marquez on 09/02/2023 09:41:14. . Documentation recorded by the scribe, Desi Liu, accurately reflects the services(s) I performed and decisions made by me. Authenticated by Dr. Marquez on 09/02/2023 09:42:47. Portions of this record may have been created with voice recognition artificial intelligence software, specifically [employer], Doormen. and or [employer] (more content not included)...[facility] HospitalComment on above:Result Comment: Electronically Signed By: Andry MARQUEZ MD\.br\Date and Time Signed: 09/02/23 09:43 EST\.br\Electronically Co-Signed By: Desi Liu\.br\Date and Time Co-Signed: 09/02/23 09:41 ESTGLYCOHEMOGLOBIN A1Con 98-63-8047RNB RECOMMENDATIONSEE BELOWTrinity Health System Twin City Medical CenterComment on above:Result Comment: ADA RECOMMENDED LIMIT 4.0 - 6.0 ADA THERAPEUTIC TARGET < 7.0 ACTION SUGGESTED > 7.0Performed By: #### A1C #### [facility] [address] [address] [address] Sam BalderramaGlucose [Mass/Vol]154 mg/dLTrinity Health System Twin City Medical CenterComment on above:Performed By: #### A1C #### [facility] [address] [address] [address] Sam BalderramaHbA1c (Bld) [Mass fraction]7.0 %Critically high4.5-6.2The [facility] HospitalComment on above:Performed By: #### A1C #### [facility] [address] [address] [address] Sam BalderramaMICROALBUMIN URINEon 33-42-7347Rtltxav, Urine42.4 ug/mLNormalNot Estab.The [facility] HospitalComment on above:Performed By: #### MALBLC #### [facility] [address] [place] [address] Dr. Sam BalderramaCBC AUTO DIFFon 74-22-6747JXZL #0.1 103/ulNormal0.0-0.1The [facility] HospitalComment on above:Performed By: #### A1C #### [facility] [address] [place] [address] Dr. Sam BalderramaBasophils/100 WBC (Bld)1.0 %Normal0.2-2.0[facility] Comment on above:Performed By: #### A1C #### [facility] [address] [place] [address] Dr. Vargas ChangEO #0.5 103/ulNormal0.0-0.7The [facility] HospitalComment on above: Performed By: #### A1C #### [facility] [address] [place] [address] Dr. Sam Vailosinophils/100 WBC (Bld)6.4 %Normal0.9-7.0The [facility] Comment on above:Performed By: #### A1C #### [facility] [address] [place] [address] Dr. Sam Vailrythrocyte distribution width (RBC) [Ratio]12.5 %Gzifon95.0-15.0 [facility] HospitalComment on above:Performed By: #### A1C #### [facility] [address] [place] [address] Dr. Sam BalderramaHematocrit (Bld) [Volume fraction]40.6 %Avkmcq58.0-48.0The [facility] HospitalComment on above:Performed By: #### A1C #### [facility] [address] [place] [address] Dr. Sam BalderramaHemoglobin (Bld) [Mass/Vol]13.1 g/jLNtzsqg98.0-16.0The [facility] HospitalComment on above:Performed By: #### A1C #### [facility] [address] [address] [address] Sam Posey #0.04 10e3/ulCritically high0.00-0.03The [facility] Comment on above:Performed By: #### A1C #### [facility] [address] [address] [address] Sam Posey %0.5 %Normal0.0-0.5The [facility] HospitalComment on above: Performed By: #### A1C #### [facility] [address] [place] [address] Dr. Sam Ruby #2.8 103/ulNormal1.2-3.8The [facility] HospitalComment on above:Performed By: #### A1C #### [facility] [address] [place] [address] Dr. Sam Shanehocytes/100 WBC (Bld)38.7 %Mfcjyl50.5-60.0The [facility] HospitalComment on above:Performed By: #### A1C #### [facility] [address] [place] [address] Dr. Sam FloresUAL DIFF REQNONormalThe [facility] HospitalComment on above: Performed By: #### A1C #### [facility] [address] [place] [address] Dr. Sam Cifuentes (RBC) [Entitic mass]30.6 cwQpqdbd78.7-34.0The [facility] HospitalComment on above:Performed By: #### A1C #### [facility] [address] [place] [address] Dr. Sam Cifuentes (RBC) [Mass/Vol]32.3 g/gNCbuhhc02.9-35.2The [facility] HospitalComment on above:Performed By: #### A1C #### [facility] [address] [place] [address] Dr. Sam Cifuentes (RBC) [Entitic vol]94.9 qHKjjccp39.0-99.0The [facility] HospitalComment on above:Performed By: #### A1C #### [facility] [address] [place] [address] Dr. Sam Arthur #0.6 103/ulNormal0.3-0.8The [facility] HospitalComment on above:Performed By: #### A1C #### [facility] [address] [place] [address] Dr. Sam Manningocytes/100 WBC (Bld)8.4 %Normal1.7-12.0[facility] Comment on above:Performed By: #### A1C #### [facility] [address] [place] [address] Dr. Sam Nettles #3.3 103/ulNormal1.4-6.5The [facility] HospitalComment on above:Performed By: #### A1C #### [facility] [address] [place] [address] Dr. Sam Mcmillanutrophils/100 WBC (Bld)45.0 %Fcuqae11.0-75.0The [facility] HospitalComment on above:Performed By: #### A1C #### [facility] [address] [place] [address] Dr. Sam Felipe mean volume (Bld) [Entitic vol]10.4 fLNormal9.5-13.5The [facility] HospitalComment on above:Performed By: #### A1C #### [facility] [address] [place] [address] Dr. Sam BalderramaPLT257 103/knSuqcjy398-334Qwy [facility] HospitalComment on above: Performed By: #### A1C #### [facility] [address] [place] [address] Dr. Sam BalderramaRBC4.28 106/ulNormal4.20-5.40The [facility] HospitalComment on above:Performed By: #### A1C #### [facility] [address] [place] [address] Dr. Sam BalderramaWBC7.3 103/ulNormal4.0-11.0[facility] HospitalComment on above: Performed By: #### A1C #### [facility] [address] [address] [address] Sam BalderramaGLYCOHEMOGLOBIN A1Con 21-43-1075ECK RECOMMENDATIONSEE BELOWNormBluffton HospitalComment on above:Result Comment: ADA RECOMMENDED LIMIT 4.0 - 6.0 ADA THERAPEUTIC TARGET < 7.0 ACTION SUGGESTED > 7.0Performed By: #### BNP, CMP, LIPA #### [facility] [address] [address] [address] Sam BalderramaGlucose [Mass/Vol]169 mg/dLNoMercy HospitalComment on above:Performed By: #### BNP, CMP, LIPA #### [facility] [address] [place] [address] Dr. Sam BalderramaHbA1c (Bld) [Mass fraction]7.5 %Critically high4.5-6.2The [facility] County HospitalComment on above:Performed By: #### BNP, CMP, LIPA #### [facility] [address] [place] [address] Dr. Sam BalderramaLIPID PROFILEon [id number]-[id number] RATIO NORMSEE [facility] HospitalComment on above:Result Comment: 3.3 - 4.4 LOW RISK 4.4 - 7.1 AVERAGE RISK 7.1 - 11.0 MODERATE RISK >11.0 HIGH RISKPerformed By: #### CVDTBH #### [facility] [address] [address] [address] Sam BalderramaCholesterol [Mass/Vol]124 mg/dLNormal<=200[facility] Comment on above:Performed By: #### CVDTBH #### [facility] [address] [address] [address] Sam BalderramaCholesterol in HDL [Mass/Vol]59 mg/xFOkjwvh83-67Hmc [facility] HospitalComment on above:Performed By: #### CVDTBH #### [facility] [address] [place] [address] Dr. Sam Garberesterol in LDL [Mass/Vol]47.2 mg/dLTrinity Health System Twin City Medical CenterComment on above:Performed By: #### CVDTBH #### [facility] [address] [place] [address] Dr. Sam Ortiz.total/Cholesterol in HDL [Mass ratio]2.1 {ratio} NormalGreene Memorial HospitalComment on above:Performed By: #### CVDTBH #### [facility] [address] [place] [address] Dr. Sam Carrera NORMAL> or = 60 mg/dl - LOW CARDIOVASCULAR RISK <40 mg/dl - HIGH CARDIOVASCULAR RISKTrinity Health System Twin City Medical CenterComment on above:Performed By: #### CVDTBH #### [facility] [address] [place] [address] Dr. Sam Nuñez CALC NORMALSEE BELOWTrinity Health System Twin City Medical CenterComment on above:Result Comment: <100 mg/dl OPTIMAL 100 - 129 mg/dl NEAR OR ABOVE OPTIMAL 130 - 159 mg/dl BORDERLINE HIGH 160 - 189 mg/dl HIGH >190 mg/dl VERY HIGH Performed By: #### CVDTBH #### [facility] [address] [place] [address] Dr. Sam BalderramaTriglyceride [Mass/Vol]89 mg/dLNormal<=150[facility] Comment on above:Performed By: #### CVDTBH #### [facility] [address] [place] [address] Dr. Sam CruzLDL CALC17.8 mg/dLNoMercy HospitalComment on above: Performed By: #### CVDTBH #### [facility] [address] [place] [address] Dr. Sam BalderramaMG MAMM SCREEN 3D YAZMIN CADon [id number] MAMM SCREEN 3D YAZMIN CAD Patient: ARIADNA COPELAND Exam Date: 03/20/2022 : 1945 Gender:F Ordering : DR RUIZ SONI D.O. Admission #: [id number] Family : Order #: [id number] CLICK HERE TO VIEW EXAM RADIOLOGY REPORT [...] breast cancer at age 78. LOCATION: [facility] BREAST COMPOSITION: Scattered areas fibroglandular density. [...] by: Richard Herrera MD on 03/20/2022 at 12:35C[facility]rington HospitalGPT on [id number] [Catalytic activity/Vol]26 U/DRipxru30-75DgeGreene Memorial Hospital Comment on above:Performed By: #### CVDTBH #### [facility] [address] [place] [address] Dr. Sam Vallejo [id number] uIU/mLNormal0.358-3.740The [facility] HospitalComment on above:Performed By: #### CVDTBH #### [facility] [address] [place], [place] [address] Dr. Sam BalderramaXR DEXA BONE DENSITYon [id number] DEXA BONE DENSITYDEXA Bone Density Study CLINICAL: Evaluate bone mineral density. This menopausal COMPARISON: None FINDINGS: The bone density study was assessed by dual-energy x-ray absorptiometry with the VMLogix scanner. The test results are expressed in [...] Electronically authenticated by: RICHARD HANNA Date: 2022-03-20 08:49NoMercy HospitalCovid-19 PCR (CVDTBH)on [id number]-CoV-2 (COVID-19) RNA MANNY+probe Ql (Unsp spec)Not detectedNormalNOT DETECTEDThe [facility] Comment on above:Result Comment: This test is not yet approved or cleared by the [place] FDA. When there are no FDA-approved or cleared tests available, and other criteria are met, FDA can make tests available under an emergency access mechanism called an Emergency Use Authorization (EUA). The EUA for this test is supported by the [place] Agent of Health and Human Service's (HHS's) declaration that circumstances exist to justify the emergency use of in vitro diagnostics for the detection and/or diagnosis of the virus that causes COVID- 19. This EUA will remain in effect (meaning [...] of clinical signs and symptoms consistent with SARS-CoV-2.Performed By: #### CVDTBH #### [facility] [address] [place] [address] Dr. Sam Calderon AUTO DIFFon [id number] #0.1 103/ulNormal0.0-0.1[facility] HospitalComment on above:Performed By: #### CBC #### [facility] [address] [address] [address] Sam BalderramaBasophils/100 WBC (Bld)0.6 %Normal0.2-2.0[facility] Comment on above:Performed By: #### CBC #### [facility] [address] [address] [address] Vargas ChangEO #0.2 103/ulNormal0.0-0.7The [facility] HospitalComment on above: Performed By: #### CBC #### [facility] [address] [place] [address] Dr. Sam Vailosinophils/100 WBC (Bld)2.7 %Normal0.9-7.0The [facility] Comment on above:Performed By: #### CBC #### [facility] [address] [place] [address] Dr. Sam Vailrythrocyte distribution width (RBC) [Ratio]12.6 %Edleqz25.0-15.0 [facility] HospitalComment on above:Performed By: #### CBC #### [facility] [address] [place] [address] Dr. Sam BalderramaHematocrit (Bld) [Volume fraction]34.2 %Critically low36.0-48.0 [facility] HospitalComment on above:Performed By: #### CBC #### [facility] [address] [place] [address] Dr. Sam BalderramaHemoglobin (Bld) [Mass/Vol]10.9 g/dLCritically low12.0-16.0[facility] HospitalComment on above:Performed By: #### CBC #### [facility] [address] [place] [address] Dr. Sam Posey #0.10 10e3/ulCritically high0.00-0.03[facility] Comment on above:Performed By: #### CBC #### [facility] [address] [place] [address] Dr. Sam Posey %1.1 %Critically high0.0-0.5ThJ.W. Ruby Memorial HospitalComment on above:Performed By: #### CBC #### [facility] [address] [place] [address] Dr. Sam Ruby #2.7 103/ulNormal1.2-3.8The [facility] HospitalComment on above:Performed By: #### CBC #### [facility] [address] [place] [address] Dr. Sam Shanehocytes/100 WBC (Bld)31.0 %Lsxaqn40.5-60.0The [facility] HospitalComment on above:Performed By: #### CBC #### [facility] [address] [place] [address] Dr. Sam Simmons DIFF REQNONormalThe [facility] HospitalComment on above: Performed By: #### CBC #### [facility] [address] [place] [address] Dr. Sam Cifuentes (RBC) [Entitic mass]30.8 soGndleh25.7-34.0The [facility] HospitalComment on above:Performed By: #### CBC #### [facility] [address] [place] [address] Dr. Sam Cifuentes (RBC) [Mass/Vol]31.9 g/qFXqcgbi96.9-35.2The [facility] HospitalComment on above:Performed By: #### CBC #### [facility] [address] [place] [address] Dr. Sam Caba (RBC) [Entitic vol]96.6 xMKyqblp95.0-99.0The [facility] HospitalComment on above:Performed By: #### CBC #### [facility] [address] [place] [address] Dr. aSm Arthur #0.9 103/ulCritically high0.3-0.8The [facility] Comment on above:Performed By: #### CBC #### [facility] [address] [place] [address] Dr. Sam Manningocytes/100 WBC (Bld)10.5 %Normal1.7-12.0[facility] Comment on above:Performed By: #### CBC #### [facility] [address] [place] [address] Dr. Sam Nettles #4.7 103/ulNormal1.4-6.5The [facility] HospitalComment on above:Performed By: #### CBC #### [facility] [address] [place] [address] Dr. Yilan ChangNeutrophils/100 WBC (Bld)54.1 %Mdgfbg48.0-75.0The [facility] HospitalComment on above:Performed By: #### CBC #### [facility] [address] [place] [address] Dr. Sam Felipe mean volume (Bld) [Entitic vol]9.7 fLNormal9.5-13.5The [facility] HospitalComment on above:Performed By: #### CBC #### [facility] [address] [place] [address] Dr. Sam BalderramaPLT258 103/miYrxtlo109-330Sfs [facility] HospitalComment on above: Performed By: #### CBC #### [facility] [address] [place] [address] Dr. Sam BalderramaRBC3.54 106/ulCritically low4.20-5.40The [facility] HospitalComment on above:Performed By: #### CBC #### [facility] [address] [place] [address] Dr. Sam BalderramaWBC8.7 103/ulNormal4.0-11.0The [facility] HospitalComment on above: Performed By: #### CBC #### [facility] [address] [place] [address] Dr. Sam BalderramaPOINT OF [facility] GLUCOSEon [id number] [Mass/Vol]145 mg/dL Critically natg84-789Mdg [facility] HospitalCommclaren [place] on above:Performed By: #### A1C #### [facility] [address] [place] [address] Dr. Sam BalderramaPROF 14(COMP METB)on 14-81-5594Brqqzdg [Mass/Vol]2.8 g/dL Critically low3.4-5.0The [facility] HospitalComment on above:Performed By: #### CVDTBH #### [facility] [address] [place] [address] Dr. Sam BalderramaAlbumin/Globulin [Mass ratio]1.2 {ratio}NormalThe [facility] HospitalComment on above:Performed By: #### CVDTBH #### [facility] [address] [address] [address] Sam GarciaP [Catalytic activity/Vol]48 U/OGgxaop88-079Zif [facility] HospitalComment on above:Performed By: #### CVDTBH #### [facility] [address] [address] [address] Sam GarciaT [Catalytic activity/Vol]32 U/QNsxrjn94-15Kgt [facility] HospitalComment on above:Performed By: #### CVDTBH #### [facility] [address] [address] [address] Sam Haywoodon gap [Moles/Vol]10.9 mmol/LNormalThe [facility] Comment on above:Performed By: #### CVDTBH #### [facility] [address] [address] [address] Sam BalderramaAST [Catalytic activity/Vol]17 U/DTtvyvk04-75Nxj [facility] HospitalComment on above:Performed By: #### CVDTBH #### [facility] [address] [address] [address] Sam BalderramaBilirubin [Mass/Vol]0.5 mg/dLNormal0.2-1.0[facility] Comment on above:Performed By: #### CVDTBH #### [facility] [address] [address] [address] Sam BalderramaCalcium [Mass/Vol]8.4 mg/dLCritically low8.5-10.1The [facility] HospitalComment on above:Performed By: #### CVDTBH #### [facility] [address] [address] [address] Sam BalderramaChloride [Moles/Vol]105 mmol/WQtpucc09-150Bch [facility] Comment on above:Performed By: #### CVDTBH #### [facility] [address] [address] [address] Sam BalderramaCO2 [Moles/Vol]29.5 mmol/LSeaqzd02.0-32.0The [facility] Comment on above:Performed By: #### CVDTBH #### [facility] [address] [address] [address] Sam BalderramaCreatinine [Mass/Vol]0.90 mg/dLNormal0.55-1.02[facility] Hospitalment on above:Performed By: #### CVDTBH #### [facility] [address] [address] [address] Sam VailGFR-AF SENEGALESE>60Normal>=60The [facility] HospitalComment on above:Performed By: #### CVDTBH #### [facility] [address] [address] [address] Sam VailGFR-NON AF SENEGALESE>60Normal>=60The [facility] HospitalComment on above:Performed By: #### CVDTBH #### [facility] [address] [address] [address] Sam BalderramaGlobulin (S) [Mass/Vol]2.4 g/dLNormalThe [facility] HospitalComment on above:Performed By: #### CVDTBH #### [facility] [address] [address] [address] Sam BalderramaGlucose [Mass/Vol]134 mg/dLCritically rgwn31-592Abe [facility] Orthopedic Centerment on above:Performed By: #### CVDTBH #### [facility] [address] [address] [address] Sam BalderramaPotassium [Moles/Vol]4.4 mmol/LNormal3.5-5.1The [facility] Comment on above:Performed By: #### CVDTBH #### [facility] [address] [address] [address] Sam BalderramaProtein [Mass/Vol]5.2 g/dLCritically low6.4-8.2[facility] on above:Performed By: #### CVDTBH #### [facility] [address] [address] [address] Sam BalderramaSodium [Moles/Vol]141 mmol/NHrjxys540-388Etw [facility] Comment on above:Performed By: #### CVDTBH #### [facility] [address] [place] [address] Dr. Sam Tapia nitrogen [Mass/Vol]14.0 mg/dLNormal7.0-18.0The [facility] HospitalComment on above:Performed By: #### CVDTBH #### [facility] [address] [place] [address] Dr. Sam Tapia nitrogen/Creatinine [Mass ratio]15.6 mg/mgNormalThe [facility] HospitalComment on above:Performed By: #### CVDTBH #### [facility] [address] [place] [address] Dr. Sam Wood [id number] peptide B (Bld) [Mass/Vol]213.0 pg/mL Normal<=1,800.0The [facility] HospitalComment on above:Performed By: #### BNP, CMP, LIPA #### [facility] [address] [place] [address] Dr. Sam Calderon AUTO DIFFon [id number] #0.1 103/ulNormal0.0-0.1The [facility] HospitalComment on above:Performed By: #### BNP, CMP, LIPA #### [facility] [address] [place] [address] Dr. Sam BalderramaBasophils/100 WBC (Bld)0.6 %Normal0.2-2.0The [facility] Comment on above:Performed By: #### BNP, CMP, LIPA #### [facility] [address] [place] [address] Dr. Sam Wallace #0.2 103/ulNormal0.0-0.7The [facility] HospitalComment on above: Performed By: #### BNP, CMP, LIPA #### [facility] [address] [place] [address] Dr. Sam Vailosinophils/100 WBC (Bld)2.5 %Normal0.9-7.0The [facility] Comment on above:Performed By: #### BNP, CMP, LIPA #### [facility] [address] [place] [address] Dr. Sam Vailrythrocyte distribution width (RBC) [Ratio]12.7 %Lfigts02.0-15.0 The [facility] HospitalComment on above:Performed By: #### BNP, CMP, LIPA #### [facility] [address] [place] [address] Dr. Sam BalderramaHematocrit (Bld) [Volume fraction]35.7 %Critically low36.0-48.0 The [facility] HospitalComment on above:Performed By: #### BNP, CMP, LIPA #### [facility] [address] [place] [address] Dr. Sam BalderramaHemoglobin (Bld) [Mass/Vol]11.4 g/dLCritically low12.0-16.0The [facility] HospitalComment on above:Performed By: #### BNP, CMP, LIPA #### [facility] [address] [place] [address] Dr. Sam Posey #0.15 10e3/ulCritically high0.00-0.03The [facility] Comment on above:Performed By: #### BNP, CMP, LIPA #### [facility] [address] [place] [address] Dr. Sam Posey %1.9 %Critically high0.0-0.5The [facility] HospitalComment on above:Performed By: #### BNP, CMP, LIPA #### [facility] [address] [place] [address] Dr. Sam Ruby #2.7 103/ulNormal1.2-3.8The [facility] HospitalComment on above:Performed By: #### BNP, CMP, LIPA #### [facility] [address] [place] [address] Dr. Sam Shanehocytes/100 WBC (Bld)33.5 %Armbwc67.5-60.0The [facility] HospitalComment on above:Performed By: #### BNP, CMP, LIPA #### [facility] [address] [place] [address] Dr. Sam Simmons DIFF REQNONormalThe [facility] HospitalComment on above: Performed By: #### BNP, CMP, LIPA #### [facility] [address] [place] [address] Dr. Sam Cifuentes (RBC) [Entitic mass]31.0 ujFkvdfp42.7-34.0The [facility] HospitalComment on above:Performed By: #### BNP, CMP, LIPA #### [facility] [address] [place] [address] Dr. Sam Cifuentes (RBC) [Mass/Vol]31.9 g/oIOvuyxg55.9-35.2The [facility] HospitalComment on above:Performed By: #### BNP, CMP, LIPA #### [facility] [address] [place] [address] Dr. Sam Cifuentes (RBC) [Entitic vol]97.0 fLTchtfo12.0-99.0The [facility] HospitalComment on above:Performed By: #### BNP, CMP, LIPA #### [facility] [address] [place] [address] Dr. Sam Arthur #0.8 103/ulNormal0.3-0.8The [facility] HospitalComment on above:Performed By: #### BNP, CMP, LIPA #### [facility] [address] [place] [address] Dr. Sam Manningocytes/100 WBC (Bld)9.8 %Normal1.7-12.0The [facility] Comment on above:Performed By: #### BNP, CMP, LIPA #### [facility] [address] [place] [address] Dr. Sam Nettles #4.1 103/ulNormal1.4-6.5The [facility] HospitalComment on above:Performed By: #### BNP, CMP, LIPA #### [facility] [address] [place] [address] Dr. Sam Mcmillanutrophils/100 WBC (Bld)51.7 %Puzokv76.0-75.0The [facility] Centerment on above:Performed By: #### BNP, CMP, LIPA #### [facility] [address] [place] [address] Dr. Sam BalderramaPlatelet mean volume (Bld) [Entitic vol]9.6 fLNormal9.5-13.5The [facility] HospitalComment on above:Performed By: #### BNP, CMP, LIPA #### [facility] [address] [place] [address] Dr. Sam BalderramaPLT281 103/emYhxuof647-385Fjk [facility] HospitalCommclaren [facility] [place] on above: Performed By: #### BNP, CMP, LIPA #### [facility] [address] [place] [address] Dr. Sam BalderramaRBC3.68 106/ulCritically low4.20-5.40The [facility] HospitalCommclaren [facility] [place] on above:Performed By: #### BNP, CMP, LIPA #### [facility] [address] [place] [address] Dr. Sam BalderramaWBC7.9 103/ulNormal4.0-11.0The [facility] on above: Performed By: #### BNP, CMP, LIPA #### [facility] [address] [place] [address] Dr. Sam BalderramaLIPASEon 98-28-5519Orucde [Catalytic activity/Vol]219.0 U/LNormal 73.0-393.0The [facility] on above:Performed By: #### BNP, CMP, LIPA #### [facility] [address] [place] [address] Dr. Sam BalderramaOCC BLD IMMUNOASSAYon 71-60-9356ICJMMU BLOODNegativeNormal NEGATIVEThe [facility] on above:Performed By: #### A1C #### [facility] [address] [place] [address] Dr. Sam BalderramaPOINT OF CARE GLUCOSEon 46-14-2295Hwxqcpt [Mass/Vol]162 mg/dL Critically fcnd11-664Ngv [facility]avi HospitalComment on above:Performed By: #### CVDTBH #### [facility] [address] [address] [address] Sam BalderramaGlucose [Mass/Vol]103 mg/nJCmjxlf66-751Gha [facility] Comment on above:Performed By: #### BNP, CMP, LIPA #### [facility] [address] [address] [address] Sam BalderramaGlucose [Mass/Vol]137 mg/dLCritically zjzh17-765Zbd [facility] HospitalComment on above:Performed By: #### BNP, CMP, LIPA #### [facility] [address] [place] [address] Dr. Sam Arriaza 14(COMP METB)on 62-30-9789Genhcqs [Mass/Vol]2.8 g/dL Critically low3.4-5.0The [facility] HospitalComment on above:Performed By: #### BNP, CMP, LIPA #### [facility] [address] [place] [address] Dr. Sam BalderramaAlbumin/Globulin [Mass ratio]1.1 {ratio}NormalThe [facility] HospitalComment on above:Performed By: #### BNP, CMP, LIPA #### [facility] [address] [place] [address] Dr. Sam Calvert [Catalytic activity/Vol]51 U/PApvltq02-510Jmq [facility] HospitalComment on above:Performed By: #### BNP, CMP, LIPA #### [facility] [address] [place] [address] Dr. Sam Alves [Catalytic activity/Vol]32 U/HOaqixa15-17Icc [facility] HospitalComment on above:Performed By: #### BNP, CMP, LIPA #### [facility] [address] [place] [address] Dr. Sam Parmar gap [Moles/Vol]10.6 mmol/LNormalThe [facility] Comment on above:Performed By: #### BNP, CMP, LIPA #### [facility] [address] [place] [address] Dr. Yilan ChangAST [Catalytic activity/Vol]16 U/RXnvfcp56-32Knh [facility] HospitalComment on above:Performed By: #### BNP, CMP, LIPA #### [facility] [address] [address] [address] Sam BalderramaBilirubin [Mass/Vol]0.5 mg/dLNormal0.2-1.0The [facility] Comment on above:Performed By: #### BNP, CMP, LIPA #### [facility] [address] [address] [address] Sam BalderramaCalcium [Mass/Vol]8.4 mg/dLCritically low8.5-10.1The [facility] HospitalComment on above:Performed By: #### BNP, CMP, LIPA #### [facility] [address] [place] [address] Dr. Sam BalderramaChloride [Moles/Vol]105 mmol/TFeldzp63-778Pjp [facility] Comment on above:Performed By: #### BNP, CMP, LIPA #### [facility] [address] [place] [address] Dr. Sam BalderramaCO2 [Moles/Vol]28.7 mmol/DDsjjwj52.0-32.0The [facility] Comment on above:Performed By: #### BNP, CMP, LIPA #### [facility] [address] [place] [address] Dr. Sam BalderramaCreatinine [Mass/Vol]0.94 mg/dLNormal0.55-1.02The [facility] HospitalComment on above:Performed By: #### BNP, CMP, LIPA #### [facility] [address] [place] [address] Dr. Vargas ChangEGFR-AF SENEGALESE>60Normal>=60The [facility] HospitalComment on above:Performed By: #### BNP, CMP, LIPA #### [facility] [address] [place] [address] Dr. Sam VailGFR-NON AF KRQECCOR58 mL/min/1.06w4Twhxijyief low>=60The [facility] HospitalComment on above:Performed By: #### BNP, CMP, LIPA #### [facility] [address] [address] [address] Sam BalderramaGlobulin (S) [Mass/Vol]2.6 g/dLNoMercy HospitalComment on above:Performed By: #### BNP, CMP, LIPA #### [facility] [address] [place] [address] Dr. Sam BalderramaGlucose [Mass/Vol]160 mg/dLCritically zsar67-184Hgn [facility] HospitalComment on above:Performed By: #### BNP, CMP, LIPA #### [facility] [address] [place] [address] Dr. Sam BalderramaPotassium [Moles/Vol]4.3 mmol/LNormal3.5-5.1The [facility] Comment on above:Performed By: #### BNP, CMP, LIPA #### [facility] [address] [place] [address] Dr. Sam BalderramaProtein [Mass/Vol]5.4 g/dLCritically low6.4-8.2[facility] HospitalComment on above:Performed By: #### BNP, CMP, LIPA #### [facility] [address] [place] [address] Dr. Sam BalderramaSodium [Moles/Vol]140 mmol/BYacjqz490-131Bei [facility] Comment on above:Performed By: #### BNP, CMP, LIPA #### [facility] [address] [place] [address] Dr. Sam BalderramaUrea nitrogen [Mass/Vol]16.0 mg/dLNormal7.0-18.0The [facility] HospitalComment on above:Performed By: #### BNP, CMP, LIPA #### [facility] [address] [place] [address] Dr. Sam BalderramaUrea nitrogen/Creatinine [Mass ratio]17.0 mg/mgNoMercy HospitalComment on above:Performed By: #### BNP, CMP, LIPA #### [facility] [address] [place] [address] Dr. Sam Wood 22-65-9874Arnipvjwwqu peptide B (Bld) [Mass/Vol]297.0 pg/mL Normal<=1,800.0The [facility] HospitalComment on above:Performed By: #### BNP, CMP, LIPA #### [facility] [address] [place] [address] Dr. Sam Calderon AUTO DIFFon [id number] #0.1 103/ulNormal0.0-0.1The [facility] HospitalComment on above:Performed By: #### CVDTBH #### [facility] [address] [place] [address] Dr. Sma BalderramaBasophils/100 WBC (Bld)0.7 %Normal0.2-2.0The [facility] Comment on above:Performed By: #### CVDTBH #### [facility] [address] [place] [address] Dr. Sam Wallace #0.3 103/ulNormal0.0-0.7The [facility] HospitalComment on above: Performed By: #### CVDTBH #### [facility] [address] [place] [address] Dr. Sam Vailosinophils/100 WBC (Bld)2.6 %Normal0.9-7.0The [facility] Comment on above:Performed By: #### CVDTBH #### [facility] [address] [place] [address] Dr. Sam Vailrythrocyte distribution width (RBC) [Ratio]12.7 %Uiadxn00.0-15.0 The [facility] HospitalComment on above:Performed By: #### CVDTBH #### [facility] [address] [place] [address] Dr. Sam BalderramaHematocrit (Bld) [Volume fraction]36.7 %Xkcpcz46.0-48.0The [facility] HospitalComment on above:Performed By: #### CVDTBH #### [facility] [address] [place] [address] Dr. Sam BalderramaHemoglobin (Bld) [Mass/Vol]11.9 g/dLCritically low12.0-16.0The [facility] HospitalComment on above:Performed By: #### CVDTBH #### [facility] [address] [address] [address] Sam Posey #0.42 10e3/ulCritically high0.00-0.03The [facility] Comment on above:Performed By: #### CVDTBH #### [facility] [address] [address] [address] Sam Posey %3.8 %Critically high0.0-0.5The [facility] HospitalComment on above:Performed By: #### CVDTBH #### [facility] [address] [place] [address] Dr. Sam Ruby #3.1 103/ulNormal1.2-3.8The [facility] HospitalComment on above:Performed By: #### CVDTBH #### [facility] [address] [place] [address] Dr. Sam Shanehocytes/100 WBC (Bld)27.7 %Rjllyw92.5-60.0The [facility] HospitalComment on above:Performed By: #### CVDTBH #### [facility] [address] [place] [address] Dr. Sam FloresUAL DIFF REQNONormalThe [facility] HospitalComment on above: Performed By: #### CVDTBH #### [facility] [address] [address] [address] Sam Cifuentes (RBC) [Entitic mass]30.5 wxAhoddi04.7-34.0The [facility] HospitalComment on above:Performed By: #### CVDTBH #### [facility] [address] [place] [address] Dr. Sam Cifuentes (RBC) [Mass/Vol]32.4 g/wZXubmdd00.9-35.2The [facility] HospitalComment on above:Performed By: #### CVDTBH #### [facility] [address] [place] [address] Dr. Sam CifuentesV (RBC) [Entitic vol]94.1 zYWkmxyn24.0-99.0The [facility] HospitalComment on above:Performed By: #### CVDTBH #### [facility] [address] [place] [address] Dr. Sam Arthur #1.1 103/ulCritically high0.3-0.8The [facility] Comment on above:Performed By: #### CVDTBH #### [facility] [address] [place] [address] Dr. Sam Manningocytes/100 WBC (Bld)9.5 %Normal1.7-12.0[facility] Comment on above:Performed By: #### CVDTBH #### [facility] [address] [place] [address] Dr. Sam Nettles #6.2 103/ulNormal1.4-6.5The [facility] HospitalComment on above:Performed By: #### CVDTBH #### [facility] [address] [place] [address] Dr. Sam Mcmillanutrophils/100 WBC (Bld)55.7 %Mymdsz41.0-75.0The [facility] HospitalComment on above:Performed By: #### CVDTBH #### [facility] [address] [place] [address] Dr. Sam Gandaralet mean volume (Bld) [Entitic vol]9.4 fLCritically low 9.5-13.5The [facility] HospitalComment on above:Performed By: #### CVDTBH #### [facility] [address] [place] [address] Dr. Sam BalderramaPLT308 103/szGqzkit992-304Mlg [facility] HospitalComment on above: Performed By: #### CVDTBH #### [facility] [address] [place] [address] Dr. Sam BalderramaRBC3.90 106/ulCritically low4.20-5.40The [facility] HospitalComment on above:Performed By: #### CVDTBH #### [facility] [address] [address] [address] Sam BalderramaWBC11.1 103/ulCritically high4.0-11.0The [facility] HospitalComment on above:Performed By: #### CVDTBH #### [facility] [address] [address] [address] Sam BalderramaCovid-19 PCR ([facility])on [id number]-CoV-2 (COVID-19) RNA MANNY+probe Ql (Unsp spec)DetectedCritically abnormalNOT DETECTEDThe [facility] HospitalComment on above:Result Comment: This test is not yet approved or cleared by the [place] FDA. When there are no FDA-approved or cleared tests available, and other criteria are met, FDA can make tests available under an emergency access mechanism called an Emergency Use Authorization (EUA). The EUA for this test is supported by the [place] of Health and Human Service's declaration that circumstances exist to justify the emergency use of in vitro diagnostics for the detection and/or diagnosis of the virusthat causes COVID-19. This EUA will remain in effect for the duration of the COVID-19 declaration ju stifying emergency of IVDs, unless it is terminated or revoked by the FDA (after which the test mayno longer be used).Performed By: #### BNP, CMP, LIPA #### [facility] [address] [place] [address] Dr. Sam BalderramaLACTATE/LACTIC ACIDon [id number] [Moles/Vol]1.6 mmol/L Normal0.4-1.9The [facility] on above:Performed By: #### A1C #### [facility] [address] [address] [address] Sam BalderramaLactate [Moles/Vol]2.2 mmol/LCritically high0.4-1.9The [facility] on above:Performed By: #### BNP, CMP, LIPA #### [facility] [address] [place] [address] Dr. Sam BalderramaLIPASEon 55-18-7840Pgevvg [Catalytic activity/Vol]110.0 U/LNormal 73.0-393.0The [facility] HospitalComment on above:Performed By: #### BNP, CMP, LIPA #### [facility] [address] [place] [address] Dr. Sam BalderramaPOINT OF CARE GLUCOSEon 12-86-6304Ueskvzx [Mass/Vol]220 mg/dL Critically bkjg75-733Jhs [facility] HospitalComment on above:Performed By: #### CVDTBH #### [facility] [address] [place] [address] Dr. Sam BalderramaGlucose [Mass/Vol]136 mg/dLCritically ngfa95-840Dsg [facility]Commcl[facility] [place] on above:Performed By: #### CVDTBH #### [facility] [address] [place] [address] Dr. Sam BalderramaGlucose [Mass/Vol]156 mg/dLCritically bqdo80-526Iqo [facility] HospitalComment on above:Performed By: #### BNP, CMP, LIPA #### [facility] [address] [place] [address] Dr. Sam BalderramaPROF 14(COMP METB)on 95-57-1422Hpdxcfk [Mass/Vol]2.8 g/dL Critically low3.4-5.0The [facility]Commcl[facility] [place] on above:Performed By: #### BNP, CMP, LIPA #### [facility] [address] [place] [address] Dr. Sam BalderramaAlbumin/Globulin [Mass ratio]1.1 {ratio}NormalThe [facility] HospitalComment on above:Performed By: #### BNP, CMP, LIPA #### [facility] [address] [place] [address] Dr. Sam GarciaP [Catalytic activity/Vol]57 U/AZtueoc46-566Gmh [facility] on above:Performed By: #### BNP, CMP, LIPA #### [facility] [address] [address] [address] Sam Alves [Catalytic activity/Vol]38 U/IXlfnpp81-94Epr [facility] HospitalComment on above:Performed By: #### BNP, CMP, LIPA #### [facility] [address] [address] [address] Sam BalderramaAnion gap [Moles/Vol]10.2 mmol/LNormalGre[facility] Comment on above:Performed By: #### BNP, CMP, LIPA #### [facility] [address] [address] [address] Sam BalderramaAST [Catalytic activity/Vol]19 U/EUqtbxb96-39Bsu [facility] HospitalComment on above:Performed By: #### BNP, CMP, LIPA #### [facility] [address] [place] [address] Dr. Sam BalderramaBilirubin [Mass/Vol]0.9 mg/dLNormal0.2-1.0[facility] Comment on above:Performed By: #### BNP, CMP, LIPA #### [facility] [address] [place] [address] Dr. Sam BalderramaCalcium [Mass/Vol]8.3 mg/dLCritically low8.5-10.1[facility] HospitalComment on above:Performed By: #### BNP, CMP, LIPA #### [facility] [address] [place] [address] Dr. Sam BalderramaChloride [Moles/Vol]102 mmol/EFednlv93-264WrfGreene Memorial Hospital Comment on above:Performed By: #### BNP, CMP, LIPA #### [facility] [address] [place] [address] Dr. Sam BalderramaCO2 [Moles/Vol]29.1 mmol/DAnciaq58.0-32.0[facility] Comment on above:Performed By: #### BNP, CMP, LIPA #### [facility] [address] [place] [address] Dr. Sam BalderramaCreatinine [Mass/Vol]0.88 mg/dLNormal0.55-1.02The [facility] HospitalComment on above:Performed By: #### BNP, CMP, LIPA #### [facility] [address] [address] [address] Sam VailGFR-AF SENEGALESE>60Normal>=60The [facility] HospitalComment on above:Performed By: #### BNP, CMP, LIPA #### [facility] [address] [address] [address] Sam VailGFR-NON AF SENEGALESE>60Normal>=60The [facility] HospitalComment on above:Performed By: #### BNP, CMP, LIPA #### [facility] [address] [address] [address] Sam BalderramaGlobulin (S) [Mass/Vol]2.6 g/dLNormalThe [facility] HospitalComment on above:Performed By: #### BNP, CMP, LIPA #### [facility] [address] [address] [address] Sam BalderraamGlucose [Mass/Vol]160 mg/dLCritically kdda58-814Vme [facility] HospitalComment on above:Performed By: #### BNP, CMP, LIPA #### [facility] [address] [address] [address] Sam BalderramaPotassium [Moles/Vol]3.3 mmol/LCritically low3.5-5.1The [facility] HospitalComment on above:Performed By: #### BNP, CMP, LIPA #### [facility] [address] [address] [address] Sam BalderramaProtein [Mass/Vol]5.4 g/dLCritically low6.4-8.2The [facility] HospitalComment on above:Performed By: #### BNP, CMP, LIPA #### [facility] [address] [address] [address] Sam BalderramaSodium [Moles/Vol]138 mmol/APeuawb858-386Emn [facility] Comment on above:Performed By: #### BNP, CMP, LIPA #### [facility] [address] [address] [address] Sam BalderramaUrea nitrogen [Mass/Vol]18.0 mg/dLNormal7.0-18.0The [facility] HospitalComment on above:Performed By: #### BNP, CMP, LIPA #### [facility] [address] [place] [address] Dr. Sam Tapia nitrogen/Creatinine [Mass ratio]20.5 mg/mgNormalThe [facility] HospitalComment on above:Performed By: #### BNP, CMP, LIPA #### [facility] [address] [place] [address] Dr. Sam Warren LINDA ADMITon [id number] [Catalytic activity/Vol]73 U/L Ooczmk68-821Zmo [facility] HospitalComment on above:Performed By: #### BNP, CMP, LIPA #### [facility] [address] [place] [address] Dr. Sam Correia.MB [Mass/Vol]1.78 ng/mLNormal<=3.60The [facility] Comment on above:Performed By: #### BNP, CMP, LIPA #### [facility] [address] [place] [address] Dr. Sam BalderramaHSTROP36.5 pg/mLNormal4.0-51.3The [facility]Commclaren [facility] [place] on above:Result Comment: CUT-OFF POINTS HAVE BEEN ESTABLISHED BASED ON THE FOURTH UNIVERSAL DEFINITIONS OF MYOCARDIAL INFARCTION. THE UPPER REFERENCE LIMIT (URL) OF TROPONIN, DEFINED THE 99TH PERCENTILE OF cTnI DISTRIBUTION IN A REFERENCE POPULATION, HAS BEEN CONFIRMED THE DECISION THRESHOLD FOR ID DIAGNOSIS.Performed By: #### BNP, CMP, LIPA #### [facility] [address] [place] [address] Dr. Sam CorreiaO42 ng/mLNormal9-82The [facility] HospitalComment on above: Performed By: #### BNP, CMP, LIPA #### [facility] [address] [place] [address] Dr. Sam Calderon AUTO DIFFon [id number] #0.0 103/ulNormal0.0-0.1The [facility] HospitalComment on above:Performed By: #### CBC #### [facility] [address] [place] [address] Dr. Sam BalderramaBasophils/100 WBC (Bld)0.1 %Critically low0.2-2.0The [facility] HospitalComment on above:Performed By: #### CBC #### [facility] [address] [address] [address] Sam Wallace #0.3 103/ulNormal0.0-0.7The [facility] HospitalComment on above: Performed By: #### CBC #### [facility] [address] [address] [address] Sam Vailosinophils/100 WBC (Bld)1.7 %Normal0.9-7.0The [facility] Comment on above:Performed By: #### CBC #### [facility] [address] [place] [address] Dr. Sam Vailrythrocyte distribution width (RBC) [Ratio]12.6 %Oogkib73.0-15.0 The [facility] HospitalComment on above:Performed By: #### CBC #### [facility] [address] [place] [address] Dr. Sam BalderramaHematocrit (Bld) [Volume fraction]43.2 %Xjcedg15.0-48.0The [facility] HospitalComment on above:Performed By: #### CBC #### [facility] [address] [place] [address] Dr. Sam BalderramaHemoglobin (Bld) [Mass/Vol]14.3 g/kBXdkbcs60.0-16.0The [facility] HospitalComment on above:Performed By: #### CBC #### [facility] [address] [address] [address] Sam Posey #0.85 10e3/ulCritically high0.00-0.03The [facility] Comment on above:Performed By: #### CBC #### [facility] [address] [address] [address] Sam Posey %5.3 %Critically high0.0-0.5The [facility] HospitalComment on above:Performed By: #### CBC #### [facility] [address] [address] [address] Sam Ruby #2.6 103/ulNormal1.2-3.8The [facility] HospitalComment on above:Performed By: #### CBC #### [facility] [address] [address] [address] Sam Shanehocytes/100 WBC (Bld)16.4 %Critically low20.5-60.0The [facility] HospitalComment on above:Performed By: #### CBC #### [facility] [address] [address] [address] Sam Simmons DIFF REQNONormalThe [facility] HospitalComment on above: Performed By: #### CBC #### [facility] [address] [place] [address] Dr. Sam Cifuentes (RBC) [Entitic mass]31.0 djPnibnd17.7-34.0The [facility] HospitalComment on above:Performed By: #### CBC #### [facility] [address] [place] [address] Dr. Sam Cifuentes (RBC) [Mass/Vol]33.1 g/hYAvwdio83.9-35.2The [facility] HospitalComment on above:Performed By: #### CBC #### [facility] [address] [place] [address] Dr. Sam Cifuentes (RBC) [Entitic vol]93.7 vKPvndhq42.0-99.0The [facility] HospitalComment on above:Performed By: #### CBC #### [facility] [address] [place] [address] Dr. Sam Arthur #1.2 103/ulCritically high0.3-0.8The [facility] Comment on above:Performed By: #### CBC #### [facility] [address] [place] [address] Dr. Sam Manningocytes/100 WBC (Bld)7.7 %Normal1.7-12.0[facility] Comment on above:Performed By: #### CBC #### [facility] [address] [address] [address] Sam McmillanUT #11.0 103/ulCritically high1.4-6.5The [facility] Comment on above:Performed By: #### CBC #### [facility] [address] [address] [address] Sam Mcmillanutrophils/100 WBC (Bld)68.8 %Ogeacu30.0-75.0The [facility] HospitalComment on above:Performed By: #### CBC #### [facility] [address] [place] [address] Dr. Sam BalderramaPlatelet mean volume (Bld) [Entitic vol]9.9 fLNormal9.5-13.5The [facility] HospitalComment on above:Performed By: #### CBC #### [facility] [address] [place] [address] Dr. Sam BalderramaPLT337 103/cwXpgbxo189-752Dym [facility] HospitalComment on above: Performed By: #### CBC #### [facility] [address] [place] [address] Dr. Sam BalderramaRBC4.61 106/ulNormal4.20-5.40The [facility] HospitalComment on above:Performed By: #### CBC #### [facility] [address] [place] [address] Dr. Sam BalderramaWBC16.0 103/ulCritically high4.0-11.0The [facility] HospitalComment on above:Performed By: #### CBC #### [facility] [address] [place] [address] Dr. Sam BalderramaCUNEDRA URINEon [id number] URINECulture Observations: HEAVY GROWTH OF MIXED GENITAL ALEJANDRO. NO POTENTIAL PATHOGENS SEEN.NormalThe [facility] HospitalComment on above:Performed By: #### BNP, CMP, LIPA #### [facility] [address] [place] [address] Dr. Vargas ChangER URINE PROFILEon 27-73-6871Rurwiiylu Ql (U)NegativeNormal NEGATIVEGreene Memorial HospitalComment on above:Performed By: #### A1C #### [facility] [address] [address] [address] aSm BalderramaClarity (U)CLEARNormalCLEARGreene Memorial HospitalComment on above: Performed By: #### A1C #### [facility] [address] [address] [address] Sam Molinalor (U)LT. YELLOWNormalYELLOWGreene Memorial HospitalComment on above:Performed By: #### A1C #### [facility] [address] [address] [address] Sam Musa micrscopic examination will be performed if indicated. NormalGreene Memorial HospitalCommclaren [place] on above:Performed By: #### A1C #### [facility] [address] [address] [address] Sam BalderramaGlucose Ql (U)NegativeNormalNEGATIVEGreene Memorial HospitalComment on above:Performed By: #### A1C #### [facility] [address] [address] [address] Sam BalderramaHemoglobin Ql (U)NegativeNormalNEGATIVESt. Mary'S [facility] on above:Performed By: #### A1C #### [facility] [address] [address] [address] Sam BalderramaKetones Ql (U)NegativeNormalNEGATIVEGreene Memorial HospitalComment on above:Performed By: #### A1C #### [facility] [address] [address] [address] Sam BalderramaLEUKOCYTESTRACEAbnormalNEGATIVEGreene Memorial HospitalCommclaren [place] on above:Performed By: #### A1C #### [facility] [address] [address] [address] Sam BalderramaNitrite Ql (U)NegativeNormalNEGATIVEGreene Memorial HospitalComment on above:Performed By: #### A1C #### [facility] [address] [address] [address] Sam BalderramapH (U)6.0 [pH]Normal5-9[facility] HospitalComment on above: Performed By: #### A1C #### [facility] [address] [address] [address] Sam Brooks GRAVITY<=1.187Buwvvwse9.005-<=1.025[facility] Comment on above:Performed By: #### A1C #### [facility] [address] [address] [address] Sam Birmingham PROTEINNegativeNormalNEGATIVE/ TRACEThe [facility] Comment on above:Performed By: #### A1C #### [facility] [address] [address] [address] Sam Velazco MICRO INDINDICATEDNormalThe [facility] HospitalComment on above: Performed By: #### A1C #### [facility] [address] [address] [address] Sam Jacobsonbilino Qn (U)0.2 {Bruna'U}/dLNormal0.2 - 1.0The [facility] HospitalComment on above:Performed By: #### A1C #### [facility] [address] [address] [address] Sam Mathis PANEL (PCR)on 23-69-8585Wumwddprdq F 40/41Not detectedNormal NOT DETECTEDThe [facility] HospitalComment on above:Performed By: #### CVDTBH #### [facility] [address] [address] [address] Sam BalderramaAstrovirusNot detectedNormalNOT DETECTEDThe [facility] Comment on above:Performed By: #### CVDTBH #### [facility] [address] [address] [address] Sam Begum. Diff toxin A/BDetectedCritically abnormalNOT DETECTEDThe [facility] HospitalComment on above:Performed By: #### CVDTBH #### [facility] [address] [address] [address] Sam ChinchillapylobacterNot detectedNormalNOT DETECTEDThe [facility] Comment on above:Performed By: #### CVDTBH #### [facility] [address] [address] [address] Sam HarrellyptosporidiumNot detectedNormalNOT DETECTEDThe [facility] HospitalComment on above:Performed By: #### CVDTBH #### [facility] [address] [address] [address] Sam Murilloos. CayetanensisNot detectedNormalNOT DETECTEDThe [facility] HospitalComment on above:Performed By: #### CVDTBH #### [facility] [address] [address] [address] Sam Byrd Coli U831Ikk ApplicableNormalNot ApplicableThe [facility] HospitalComment on above:Performed By: #### CVDTBH #### [facility] [address] [address] [address] Sam Vail. histolyticaNot detectedNormalNOT DETECTEDThe [facility] Comment on above:Performed By: #### CVDTBH #### [facility] [address] [address] [address] Sam VailAECNot detectedNormalNOT DETECTEDThe [facility] HospitalComment on above:Performed By: #### CVDTBH #### [facility] [address] [address] [address] Sam VailIECNot detectedNormalNOT DETECTEDThe [facility] HospitalCommclaren [facility] [place] on above:Performed By: #### CVDTBH #### [facility] [address] [address] [address] Sam VailPECNot detectedNormalNOT DETECTEDThe [facility] HospitalComment on above:Performed By: #### CVDTBH #### [facility] [address] [address] [address] Sam VailTECNot detectedNormalNOT DETECTEDThe [facility] HospitalComment on above:Performed By: #### CVDTBH #### [facility] [address] [address] [address] Sam Rosenthal. LambliaNot detectedNormalNOT DETECTEDThe [facility] Comment on above:Performed By: #### CVDTBH #### [facility] [address] [address] [address] Sam LOMAXPASSCleveland Clinic Hillcrest HospitalComment on above:Performed By: #### CVDTBH #### [facility] [address] [address] [address] Sam STEPHENSON HEADERGI [facility] Comment on above:Performed By: #### CVDTBH #### [facility] [address] [place] [address] Dr. Sam Segundo ECOLIGI PANEL DIARRHEAGENIC E.COLI / SHIGELLATrinity Health System Twin City Medical CenterComment on above:Performed By: #### CVDTBH #### [facility] [address] [place] [address] Dr. Sam Segundo INFOMercy Health Defiance HospitalComment on above: Result Comment: EAEC- Enteroaggregative E. Coli EPEC- Enteropathogenic E. Coli ETEC- Enterotoxigenic E. Coli lt/st STEC- Shigella-like toxin-producing E. Coli stx1/stx2 EIEC- Shigella/Enteroinvasive E. ColiPerformed By: #### CVDTBH #### [facility] [address] [place] [address] Dr. Sam Segundo PARASITESGI [facility] Comment on above:Performed By: #### CVDTBH #### [facility] [address] [place] [address] Dr. Sam Segundo VIRUSGI PANEL VIRUSESTrinity Health System Twin City Medical CenterComment on above:Performed By: #### CVDTBH #### [facility] [address] [place] [address] Dr. Sam Edwardsvirus GI/GIINot detectedNormalNOT DETECTEDGreene Memorial HospitalCommclaren [place] on above:Performed By: #### CVDTBH #### [facility] [address] [place] [address] Dr. Sam Og ShigelloidesNot detectedNormalNOT DETECTEDThe [facility] HospitalComment on above:Performed By: #### CVDTBH #### [facility] [address] [place] [address] Dr. Sam BalderramaRotavirus ANot detectedNormalNOT DETECTEDThe [facility] Comment on above:Performed By: #### CVDTBH #### [facility] [address] [address] [address] Sam BalderramaSalmonellaNot detectedNormalNOT DETECTEDThe [facility] Comment on above:Performed By: #### CVDTBH #### [facility] [address] [place] [address] Dr. Sam BalderramaSapovirusNot detectedNormalNOT DETECTEDGreene Memorial Hospital Comment on above:Performed By: #### CVDTBH #### [facility] [address] [place] [address] Dr. Sam BalderramaSTECNot detectedNormalNOT DETECTEDThe [facility] HospitalComment on above:Performed By: #### CVDTBH #### [facility] [address] [place] [address] Dr. Sam BlakelybrioNot detectedNormalNOT DETECTEDThe [facility] County HospitalComment on above:Performed By: #### CVDTBH #### [facility] [address] [place] [address] Dr. Sam Diggsio CholeraNot detectedNormalNOT DETECTEDGre[facility] Comment on above:Performed By: #### CVDTBH #### [facility] [address] [place] [address] Dr. Sam Foster. EnterocoliticaNot detectedNormalNOT DETECTEDThe [facility] HospitalComment on above:Performed By: #### CVDTBH #### [facility] [address] [place] [address] Dr. Sam BalderramaLIPASEgerardo 03-66-1075Bhkobn [Catalytic activity/Vol]799.0 U/L Critically high73.0-393.0The [facility] HospitalComment on above:Performed By: #### BNP, CMP, LIPA #### [facility] [address] [place] [address] Dr. Yilan ChangPROF 14(COMP METB)on 32-50-4746Mxxalun [Mass/Vol]3.8 g/dLNormal 3.4-5.0The [facility] HospitalComment on above:Performed By: #### BNP, CMP, LIPA #### [facility] [address] [address] [address] Sam BalderramaAlbumin/Globulin [Mass ratio]1.2 {ratio}NormalThe [facility] HospitalComment on above:Performed By: #### BNP, CMP, LIPA #### [facility] [address] [address] [address] Sam GarciaP [Catalytic activity/Vol]72 U/QAsbgjb34-922Lfi [facility] HospitalComment on above:Performed By: #### BNP, CMP, LIPA #### [facility] [address] [place] [address] Dr. Sam GarciaT [Catalytic activity/Vol]49 U/JYtseux29-33Cpo [facility] HospitalComment on above:Performed By: #### BNP, CMP, LIPA #### [facility] [address] [address] [address] Sam Parmar gap [Moles/Vol]13.2 mmol/LNormalThe [facility] Comment on above:Performed By: #### BNP, CMP, LIPA #### [facility] [address] [place] [address] Dr. Sam BalderramaAST [Catalytic activity/Vol]24 U/YXopdrd42-43Dlq [facility] HospitalComment on above:Performed By: #### BNP, CMP, LIPA #### [facility] [address] [place] [address] Dr. Sam BalderramaBilirubin [Mass/Vol]0.9 mg/dLNormal0.2-1.0The [facility] Comment on above:Performed By: #### BNP, CMP, LIPA #### [facility] [address] [place] [address] Dr. Sam BalderramaCalcium [Mass/Vol]9.2 mg/dLNormal8.5-10.1The [facility] Comment on above:Performed By: #### BNP, CMP, LIPA #### [facility] [address] [address] [address] Sam BalderramaChloride [Moles/Vol]95 mmol/LCritically ylh12-422Ydd [facility] HospitalComment on above:Performed By: #### BNP, CMP, LIPA #### [facility] [address] [address] [address] Sam BalderramaCO2 [Moles/Vol]28.9 mmol/ZOweude54.0-32.0The [facility] Comment on above:Performed By: #### BNP, CMP, LIPA #### [facility] [address] [address] [address] Sam BalderramaCreatinine [Mass/Vol]1.23 mg/dLCritically high0.55-1.02The [facility] HospitalComment on above:Performed By: #### BNP, CMP, LIPA #### [facility] [address] [place] [address] Dr. Sam VailGFR-AF YYIQUQZW17 mL/min/1.35f3Aetbjjbnnu low>=60The [facility] HospitalComment on above:Performed By: #### BNP, CMP, LIPA #### [facility] [address] [place] [address] Dr. Sam VailGFR-NON AF QZTLVIKW63 mL/min/1.27x2Ygwdwtbbhr low>=60The [facility] HospitalComment on above:Performed By: #### BNP, CMP, LIPA #### [facility] [address] [place] [address] Dr. Sam BalderramaGlobulin (S) [Mass/Vol]3.2 g/dLNormalThe [facility] HospitalComment on above:Performed By: #### BNP, CMP, LIPA #### [facility] [address] [place] [address] Dr. Sam BalderramaGlucose [Mass/Vol]204 mg/dLCritically isbe95-261Cnb [facility] HospitalComment on above:Performed By: #### BNP, CMP, LIPA #### [facility] [address] [address] [address] Sam BalderramaPotassium [Moles/Vol]4.1 mmol/LNormal3.5-5.1The [facility] Comment on above:Performed By: #### BNP, CMP, LIPA #### [facility] [address] [address] [address] Sam BalderramaProtein [Mass/Vol]7.0 g/dLNormal6.4-8.2The [facility] Comment on above:Performed By: #### BNP, CMP, LIPA #### [facility] [address] [address] [address] Sam BalderramaSodium [Moles/Vol]133 mmol/LCritically dnm478-151Tzi [facility] HospitalComment on above:Performed By: #### BNP, CMP, LIPA #### [facility] [address] [place] [address] Dr. Sam BalderramaUrea nitrogen [Mass/Vol]32.0 mg/dLCritically high7.0-18.0The [facility] HospitalComment on above:Performed By: #### BNP, CMP, LIPA #### [facility] [address] [address] [address] Sam Tapia nitrogen/Creatinine [Mass ratio]26.0 mg/mgNoMercy HospitalComment on above:Performed By: #### BNP, CMP, LIPA #### [facility] [address] [address] [address] Sam Muñoz MICROSCOPIC ONLYon 08-22-8055TKMWQQXGLJICUBlwjkosvJFBR SEEN The [facility] HospitalCommclaren [place] on above:Performed By: #### A1C #### [facility] [address] [address] [address] Sam Renee identified Cx Nom (U)INDICATEDNoMercy HospitalComment on above:Performed By: #### A1C #### [facility] [address] [place] [address] Dr. Sam HillSEENAbnormalBANNERJesús SEENGreene Memorial HospitalCommclaren [place] on above: Performed By: #### A1C #### [facility] [address] [address] [address] Sam BalderramaCrystals LM Nom (Urine sed)NONE SEENNormalNONE SEENThe [facility] HospitalCommclaren [place] on above:Performed By: #### A1C #### [facility] [address] [place] [address] Dr. Vargas ChangEpithelial cells LM Ql (Urine sed)MODERATEAbnormalNONE SEEN /RARE The [facility] HospitalCommclaren [place] on above:Performed By: #### A1C #### [facility] [address] [place] [address] Dr. Sam BalderramaMUCOUSNONE SEENNormalNONE SEENOhioHealth Grady Memorial Hospital on above:Performed By: #### A1C #### [facility] [address] [place] [address] Dr. Sam BalderramaCdcyqCZZ5-6Rvldmp8-8Sxj [facility] on above:Performed By: #### A1C #### [facility] [address] [place] [address] Dr. Sam BalderramaWBC2-5AbnormalNONE SEENGreene Memorial HospitalCommclaren [place] on above: Performed By: #### A1C #### [facility] [address] [place] [address] Dr. Sam BalderramaXR CHEST 1 Von 21-26-5409LH CHEST 1 VXR CHEST 1 V 01/04/2022 5:56 PM EDT CLINICAL INDICATION: Nausea with [...] Electronically authenticated by: CELIA WALTON Date: 2022-01-04 21:03[facility] 45-73-2573Tdsdxfnboxm peptide B (Bld) [Mass/Vol]266.0 pg/mLNormal<=1,800.0The [facility] HospitalComment on above:Performed By: #### BMP, HSTROPN, BNP #### [facility] [address] [place] [address] Dr. Sam Calderon AUTO DIFFon 02-36-7304CDVH #0.0 103/ulNormal0.0-0.1The [facility] HospitalComment on above:Performed By: #### CBC #### [facility] [address] [place] [address] Dr. Sam BalderramaBasophils/100 WBC (Bld)0.4 %Normal0.2-2.0The [facility] Comment on above:Performed By: #### CBC #### [facility] [address] [place] [address] Dr. Sam Wallace #0.0 103/ulNormal0.0-0.7The [facility] HospitalComment on above: Performed By: #### CBC #### [facility] [address] [place] [address] Dr. Sam Vailosinophils/100 WBC (Bld)0.0 %Critically low0.9-7.0The [facility] HospitalComment on above:Performed By: #### CBC #### [facility] [address] [place] [address] Dr. Sam Vailrythrocyte distribution width (RBC) [Ratio]12.5 %Ptmzgl52.0-15.0 The [facility] HospitalComment on above:Performed By: #### CBC #### [facility] [address] [place] [address] Dr. Sam BalderramaHematocrit (Bld) [Volume fraction]38.0 %Uomito12.0-48.0The [facility] HospitalComment on above:Performed By: #### CBC #### [facility] [address] [place] [address] Dr. Sam BalderramaHemoglobin (Bld) [Mass/Vol]12.4 g/tXYuenqa14.0-16.0The [facility] HospitalComment on above:Performed By: #### CBC #### [facility] [address] [place] [address] Dr. Sam Posey #0.03 10e3/ulNormal0.00-0.03The [facility] HospitalComment on above:Performed By: #### CBC #### [facility] [address] [place] [address] Dr. Sam Posey %0.4 %Normal0.0-0.5The [facility] HospitalComment on above: Performed By: #### CBC #### [facility] [address] [address] [address] Sam GoetzElda #0.8 103/ulCritically low1.2-3.8The [facility] Comment on above:Performed By: #### CBC #### [facility] [address] [place] [address] Dr. Sam Shanehocytes/100 WBC (Bld)10.9 %Critically low20.5-60.0The [facility] HospitalComment on above:Performed By: #### CBC #### [facility] [address] [place] [address] Dr. Sam FloresUAL DIFF REQNONormalThe [facility] HospitalComment on above: Performed By: #### CBC #### [facility] [address] [place] [address] Dr. Sam Cifuentes (RBC) [Entitic mass]30.8 tjRodsuz20.7-34.0The [facility] HospitalComment on above:Performed By: #### CBC #### [facility] [address] [place] [address] Dr. Sam Cifuentes (RBC) [Mass/Vol]32.6 g/eUTcbbdn78.9-35.2The [facility] HospitalComment on above:Performed By: #### CBC #### [facility] [address] [place] [address] Dr. Sam Cifuentes (RBC) [Entitic vol]94.3 vFBkiswo85.0-99.0The [facility] HospitalComment on above:Performed By: #### CBC #### [facility] [address] [place], [place] [id number] Dr. Sam Arthur #0.7 103/ulNormal0.3-0.8The [facility] HospitalComment on above:Performed By: #### CBC #### [facility] [address] [place] [address] Dr. Sam Manningocytes/100 WBC (Bld)9.6 %Normal1.7-12.0The [facility] Comment on above:Performed By: #### CBC #### [facility] [address] [place] [address] Dr. Sam Nettles #5.5 103/ulNormal1.4-6.5The [facility] HospitalComment on above:Performed By: #### CBC #### [facility] [address] [place] [address] Dr. Sam Mcmillanutrophils/100 WBC (Bld)78.7 %Critically high43.0-75.0The [facility] HospitalComment on above:Performed By: #### CBC #### [facility] [address] [place] [address] Dr. Sam Gandaralet mean volume (Bld) [Entitic vol]10.2 fLNormal9.5-13.5The [facility] HospitalComment on above:Performed By: #### CBC #### [facility] [address] [place] [address] Dr. Sam BalderramaPLT227 103/ymXzicto455-352Unb [facility] HospitalComment on above: Performed By: #### CBC #### [facility] [address] [place] [address] Dr. Sam BalderramaRBC4.03 106/ulCritically low4.20-5.40The [facility] HospitalComment on above:Performed By: #### CBC #### [facility] [address] [place] [address] Dr. Sam BalderramaWBC7.0 103/ulNormal4.0-11.0The [facility] HospitalComment on above: Performed By: #### CBC #### [facility] [address] [place] [address] Dr. Sam Roth AND B AGon 73-24-0683CHPTLIOAXJQCY [facility] The Jewish HospitalComment on above:Result Comment: Negative for Flu A protein angiten. Infection due to Flu A cannot be ruled out. FluA angiten in the sample may be below the detection limit of the test.Performed By: #### A1C #### [facility] [address] [place] [address] Dr. Sam YangUBNEGHSEE [facility] Jewish HospitalComment on above: Result Comment: Negative for Flu B protein antigen. Infection due to Flu B cannot be ruled out. FluB antigen in the sample may be below the detection limit of the test.Performed By: #### A1C #### [facility] [address] [place] [address] Dr. Sam Roth AGNegativeNormalNEGATIVE SEE COMMENTThe [facility] HospitalCommclaren [facility] [place] on above:Performed By: #### A1C #### [facility] [address] [place] [address] Dr. Sam Rm AGNegativeNormalNEGATIVE SEE COMMENTThe [facility] HospitalComment on above:Performed By: #### A1C #### [facility] [address] [place] [address] Dr. Sam BalderramaINTERNAL CONTROLSWithin Normal LimitsNormalWithin Normal Limits The [facility] HospitalComment on above:Performed By: #### A1C #### [facility] [address] [place] [address] Dr. Sam BalderramaPROF CHEM 8 (BAS METB)on 63-90-6669Feopd gap [Moles/Vol]10.9 mmol/LNormalThe [facility] HospitalComment on above:Performed By: #### BNP, CMP, LIPA #### [facility] [address] [place] [address] Dr. Sam BalderramaCalcium [Mass/Vol]9.1 mg/dLNormal8.5-10.1The [facility] Comment on above:Performed By: #### BNP, CMP, LIPA #### [facility] [address] [address] [address] Sam BalderramaChloride [Moles/Vol]102 mmol/STnsvob75-052Szy [facility] Comment on above:Performed By: #### BNP, CMP, LIPA #### [facility] [address] [address] [address] Sam BalderramaCO2 [Moles/Vol]29.5 mmol/OGccwsv01.0-32.0The [facility] Comment on above:Performed By: #### BNP, CMP, LIPA #### [facility] [address] [address] [address] Sam BalderramaCreatinine [Mass/Vol]0.99 mg/dLNormal0.55-1.02The [facility] HospitalComment on above:Performed By: #### BNP, CMP, LIPA #### [facility] [address] [address] [address] Vargas ChangEGFR-AF SENEGALESE>60Normal>=60The [facility] HospitalComment on above:Performed By: #### BNP, CMP, LIPA #### [facility] [address] [address] [address] Sam VailGFR-NON AF YGHDUQHU26 mL/min/1.68e3Nvohawmryo low>=60The [facility] HospitalComment on above:Performed By: #### BNP, CMP, LIPA #### [facility] [address] [address] [address] Sam BalderramaGlucose [Mass/Vol]193 mg/dLCritically cuza58-277Xtv [facility] HospitalComment on above:Performed By: #### BNP, CMP, LIPA #### [facility] [address] [address] [address] Sam BalderramaPotassium [Moles/Vol]3.4 mmol/LCritically low3.5-5.1The [facility] HospitalComment on above:Performed By: #### BNP, CMP, LIPA #### [facility] [address] [address] [address] Sam BalderramaSodium [Moles/Vol]139 mmol/PZuscfx242-824Mqt [facility] Comment on above:Performed By: #### BNP, CMP, LIPA #### [facility] [address] [address] [address] Sam Tapia nitrogen [Mass/Vol]15.0 mg/dLNormal7.0-18.0The [facility] HospitalComment on above:Performed By: #### BNP, CMP, LIPA #### [facility] [address] [address] [address] Sam Tapia nitrogen/Creatinine [Mass ratio]15.2 mg/mgNoMercy HospitalComment on above:Performed By: #### BNP, CMP, LIPA #### [facility] [address] [place] [address] Dr. Sam Knutson, HIGH SENSITIVITYon 57-66-8833RTYKBW13.1 pg/mLNormal 4.0-51.3The [facility] HospitalComment on above:Result Comment: CUT-OFF POINTS HAVE BEEN ESTABLISHED BASED ON THE FOURTH UNIVERSAL DEFINITIONS OF MYOCARDIAL INFARCTION. THE UPPER REFERENCE LIMIT (URL) OF TROPONIN, DEFINED THE 99TH PERCENTILE OF cTnI DISTRIBUTION IN A REFERENCE POPULATION, HAS BEEN CONFIRMED THE DECISION THRESHOLD FOR ID DIAGNOSIS.Performed By: #### BNP, CMP, LIPA #### [facility] [address] [place] [address] Dr. Sam BalderramaXR CHEST 1 Von 45-70-7592GK CHEST 1 VEXAM: XR CHEST 1 V HISTORY: SHORTNESS OF [...] Electronically authenticated by: JAZZ MASON Date: 2021-12-26 16:51[facility] CenterCovid-19 PCR (CVDTBH)on 26-25-5180RWOA-CoV-2 (COVID-19) RNA MANNY+probe Ql (Unsp spec)DetectedCritically abnormalNOT DETECTEDThe [facility] HospitalComment on above:Result Comment: This test is not yet approved or cleared by the [place] FDA. When there are no FDA-approved or cleared tests available, and other criteria are met, FDA can make tests available under an emergency access mechanism called an Emergency Use Authorization (EUA). The EUA for this test is supported by the [place] of Health and Human Service's (HHS's) declaration [...] no longer be used). Performed By: #### CVDTBH #### [facility] [address] [address] [address] Sam Conley Summaryon 54-73-0860Cjrognzyq SummaryMR#: [id number] [facility] Ariadna [facility] Admitted: 09/15/2017 Discharged: 09/18/2017 Date of : 1945 Physician: Krunal Dougherty M.D. DISCHARGE SUMMARYPRIMARY DIAGNOSIS: Non-ST elevation myocardial infarction, diagnosed bytakotsubo cardiomyopathy.SECONDARYDIAGNOSES:1. Hypertension.2. Hyperlipidemia.3. Hypothyroidism.HOSPITAL COURSE: A 72-year-old femalepatient with past medical history ofhypertension, hyperlipidemia, hypothyroidism, presents to the emergencydepartment with chest pain. The patient said that the pain startedsuddenly, substernal, pressure-like the patient's troponinswere found to be elevated at 1.7 and she had T-wave inver whit. Therefore,the patient was taken to the pie bakery laborer the next day. Her pie bakery laborer showednonobstructive coronary angiograms. The left main artery [...] Metoprolol succinate 25 mg oral daily.8. medication lisinopril/hydrochlorothiazide.9. Clonidine was stopped as well.Electronically Signed by:Krunal Dougherty M.D. 09/20/2017 10:36 A Krunal Dougherty M.D. I have reviewed this discharge summary and confirmed the resident'sdocumentation. Please note that there may be additional documentation fromme. Date Dict: 09/18/2017/02:27 P/KRISTAN Barrettate Trans: 09/19/2017 11:34 A/Amparo_JN:[id number]: Ruiz Soni D.O. [address] [place] [id number] Health SystemPOC GLUCOSE LABon 10-41-7640Bxhtxtq mass conc 181 mg/uJSldo21-740Pwa [facility] HospitalComment on above: Performed By: #### 62261, 96041, 19462 ####[facility] [place] [address], [facility] HOSPITALCardiovascular Lab Reporton [id number] Lab ReportUnFisher-Titus Medical Center Patient Name: Ariadna Copeland [facility] MR #: [id number] Physician: Ruma,Department of M.D.Medicine Service Date: 09/16/2017Division of Birthdate: 3Cardiology Room #: 3AB [id number] CardiovascularSerPeter [address] [id number] Hernandez.[place], [place] [address]Kzepw Fax Cardiovascular Laboratory ReportFINAL IMPRESSION:Normal epicardial coronary arteries.INDICATION: Ariadna Copeland is a 72-year-old female, who was admitted with features ofacute coronary syndrome. She was considered for an urgent heartcatheterization.PROCEDURE: Coronary angiography from right ulnar access.RECOMMENDATION:The patient should undergo an Echocardiogram to evaluate for LV systolicfunction. Continue medical therapy for risk factor modification .METHODS:After risks, benefits, and alternatives were explained to [...] sheath was placed and then we used 5-Bolivian JR5,JL3.5, JL4, ultimate an XB LT 3.5- Bolivian guide to engage the left coronaryostium. We were able to engage with 4- Bolivian JL4 angiography wasperformed. After that, we wanted to place a pigtail across the aorticvalve. We were unable and after multiple attempts,this was abandoned andpigtail catheter was removed out and hemostasis was obtained by applicationofTR band. There were no complications during the procedure. She hadreceived heparin during the procedure.HEMODYNAMIC DATA: AO is 124, 53 (84).TOTAL FLUORO TIME: 22.60 minutes.TOTAL CONTRAST: 70 mL.AIRKERMA: 0.7 Gy.CORONARY ANGIOGRAPHY:1. Left main: This is a moderate-sized vessel bifurcates in LAD and circumflex. Left main is angiographically normal.2. LAD. This is angiographically normal. It gives rise to 2 diagonal branches, which are angiographically normal.3. The circumflex gives rise to 2 moderate-sized obtuse marginal branches, which are angiographically normal. The distal circumflex its elf is small.4. Right coronary artery: This has a large and dominant demonstrates an ostial 40% stenosis, but no damping with 5-Bolivian catheters. This is the dominant vessel.Electronically Signed by:Micki Ramirez M.D. 09/23/2017 12:56 P Micki Ramirez M.D.Date Dict: 09/16/2017/10:16 Ira/Micki Ramirez M.D.Date Trans: 09/17/2017 07:11 A/Amparo_JN:[id number]: Ruiz Soni D.O. [address] [place] [id number] Health SystemPO GLUCOSE LABon 14-34-2329Oenlldh mass ygzd469 mg/sARkwg30-322Ijs [facility] HospitalComment on above:Performed By: #### 03161, 85435, 72466 ####[facility] [facility] [place] [address], [facility] Glucose mass mmid498 mg/pZVjxb95-238Yks [facility] Comment on above:Performed By: #### 49581, 75181, 88148 ####[facility] [facility] [place] [address], [facility] HOSPITALGlucose mass ybwt570 mg/dL Lflq97-608Tkd [facility] HospitalComment on above:Performed By: #### 17442, 54936, 55016 ####[facility] [facility] [place] [address], [facility] HOSPITALGlucose mass jlox282 mg/nGKcyc16-543Daa [facility] HospitalComment on above:Performed By: #### 43699, 59707, 42012 ####[facility] [facility] [place] [address], [facility] BASIC METABOLIC PANELon 64-20-6749Aiemcjn1.5 mg/dLNormal8.6-10.3The [facility] HospitalComment on above:Order Comment: No: Do not add to previous drawPerformed By: #### 69899, 07436, 78917 ####[facility] [place] [address], YDUSzigevae418 mmol/LNormal 98-107The [facility] HospitalComment on above:Order Comment: No: Do not add to previous drawPerformed By: #### 48881, 78432, 03818 ####[facility] [place] [address], QFFPD762 mmol/L Flfbbc77-05Zdm [facility] HospitalComment on above:Order Comment: No: Do not add to previous drawPerformed By: #### 20724, 56920, 94511 ####[facility] [place] [address], [place] Creatinine1.04 mg/dLNormal0.60-1.20The [facility] Comment on above:Order Comment: No: Do not add to previous drawPerformed By: #### 57895, 96762, 06628 ####[facility] [place] [address], USAeGFR (black)mL/min/{1.73_m2}Normal>60The [facility] HospitalComment on above:Order Comment: No: Do not add to previous drawResult Comment: Calculation may not be valid for patients over 70 years Performed By: #### 28068, 64129, 75996 ####[facility] [place] [address], USAeGFR (non-black)52 ml/min/1.73sq m Abnormal>60The [facility] HospitalComment on above:Order Comment: No: Do not add to previous drawResult Comment: Calculation may not be valid for patients over 70 yearsPerformed By: #### 15934, 12691, 35067 ####[facility] [place] [address], [place] Glucose mass aqav640 mg/wWWjdr34-130Lwe [facility] Comment on above:Order Comment: No: Do not add to previous drawPerformed By: #### 96138, 95426, 14284 ####[facility] [place] [address], USAPotassium molar conc4.3 mmol/LNormal3.5-5.1The [facility] HospitalComment on above:Order Comment: No: Do not add to previous drawPerformed By: #### 98107, 48907, 47567 ####[facility] [place] [address], HSDGyyzra569 mmol/L Zkfbvv144-088Scy [facility] HospitalComment on above:Order Comment: No: Do not add to previous drawPerformed By: #### 13069, 77419, 92147 ####[facility] [place] [address], [place] Urea jszcbyjx97 mg/dLNormal7-25The [facility] HospitalComment on above:Order Comment: No: Do not add to previous drawPerformed By: #### 63645, 38640, 03842 ####[facility] [place] [address], USACBC COMPLETE BLOOD COUNTon 13-41-7134Wbclbqngjin distribution width Auto Ratio (RBC)12.8 %Nwetws26.5-15.0[facility] Comment on above:Order Comment: No: Do not add to previous drawPerformed By: #### 10450 ####[facility] [place] [address], USAErythrocytes (RBC)3.71 10*6/uLLow3.80-5.00The [facility] HospitalComment on above:Order Comment: No: Do not add to previous draw Performed By: #### 74258 ####[facility] [place] [address], USAErythrocytes (RBC)0 %Normal0-0The [facility] HospitalComment on above:Order Comment: No: Do not add to previous draw Performed By: #### 57271 ####[facility] [facility] [place] [address], [facility]OSPITALHematocrit (HCT)34.1 %Low36.0-45.0The [facility] HospitalComment on above:Order Comment: No: Do not add to previous drawPerformed By: #### 27099 ####[facility] [facility] [place] [address], [facility]OSPITALHemoglobin mass conc (Bld)11.6 g/dLLow 12.0-15.0The [facility] HospitalComment on above:Order Comment: No: Do not add to previous drawPerformed By: #### 37014 ####[facility] [facility] [place] [address], UIEAKC67.3 cdBktlih87.0-33.0 The [facility] HospitalComment on above:Order Comment: No: Do not add to previous drawPerformed By: #### 42753 ####[facility] [facility] [place] [address], [facility]ENEHC mass conc (RBC)34.0 g/gGDpsqbd54.0-35.0The [facility] HospitalComment on above:Order Comment: No: Do not add to previous drawPerformed By: #### 14839 ####[facility] [facility] [place] [address], IERERQ25.9 fLNormal 82.0-98.0The [facility] HospitalComment on above:Order Comment: No: Do not add to previous drawPerformed By: #### 18877 ####[facility] [facility] [place] [address], USAPLAT LPZ058 10*3/uLNormal 150-400The [facility] HospitalComment on above:Order Comment: No: Do not add to previous drawPerformed By: #### 24775 ####[facility] [facility] [place] [address], [facility]OSPITALWBC (Leukocytes)10.8 10*3/uLHigh4.0-10.6The [facility] HospitalComment on above:Order Comment: No: Do not add to previous drawPerformed By: #### 18658 ####[facility] [facility] [place] [address], [facility] HOSPITALHEMOGLOBIN A1Con 50-02-2795Zyhofcs mass zhnt383 mg/aNJxon88-907Aqe [facility] HospitalComment on above:Order Comment: Yes: Add to Previous draw if abledraw with UFH at 3am per RN NadaSSPerformed By: #### 57153, 62783, 21044 ####[facility] [facility] [place] [address], [facility]OSPITALHemoglobin A1c/Hemoglobin.total mass fraction (Bld)8.2 %High4.0-6.0The [facility] HospitalComment on above:Order Comment: Yes: Add to Previous draw if abledraw with UFH at 3am per RN NadaSSPerformed By: #### 02563, 12629, 11730 ####[facility] [facility] [place] [address], [facility] History and Physicalon 56-07-9289Paaykwk and PhysicalMR#: [id number] [place] [facility] Name: Ariadna Copeland Admitted: 09/15/2017 Date of : 1945 Attending Physician: JESSICA Ramirez MD Room #: 3AB [id number] Discharge Date: HISTORY AND PHYSICALCHIEF COMPLAINT: Chest [...] chest pain calmed down with thenitroglycerin to 3/10on a scale. The patient in the emergency departmentwas started on nitro drip and heparin drip. Cardiology on- call was called.Case was discussed with the local announcer who recommended to continueon heparin and nitro drip, repeat troponin every 6 hours. During theinterview, the patient is complaining of chest pain while she was talking.Also during the interview, library monitor showed the patient had multiplePVCs. local announcer was called and updated about the new [...] amoxicillin, Prilosec despite she is tolerating the Augmen tin,fexofenadine.MEDICATIONS: Atorvastatin 10 mg, vitamin D supplement daily, clonidine 0.1mg, levothyroxine 75 mcg, lisinopril with hydrochlorothiazide , jjzvbgjdmi51 mg daily.SOCIAL HISTORY: The patient denies smoking, [...] 1.01. White blood cells 10.4, hemoglobin 12.9, pgntzttvu766. Troponin 1.87. Glucose 199, creatinine 1.17, potassium 3.5.ASSESSMENT:1. Chest pain, most likely due to cym-GG-mejutoipj myocardial infarction.2. Dmn-NA-izoligbqx myocardial infarction.3. Essential hypertension.4. Hyperglycemia, rule out [...] Signed by:JESSICA Ramirez MD 09/16/2017 04:13 A JESSICA Ramirez, MDDate Dict: 09/15/2017/11:08 P/JESSICA Ramirez,MDDate Trans: 09/15/2017 11:49 P/mmoDN_JN:[id number] The [facility] HospitalMAGNESIUM BLOODon 48-41-0155Bwjcejfqy4.0 mg/dLNormal1.9-2.7The [facility] HospitalComment on above:Order Comment: No: Do not add to previous drawPerformed By: #### 99341, 91050, 99136 ####[facility] [place] [address], [place] PHOSPHORUS BLOODon 33-60-3862Dqnqqpupn2.8 mg/dLNormal2.5-5.0The [facility] HospitalComment on above:Order Comment: No: Do not add to previous drawPerformed By: #### 43083, 61587, 35614, 27025 ####[facility] [place] [address], USAPOC GLUCOSE LABon 13-40-1583Oxaohnk mass siro038 mg/sNWlxh97-136Cuv [facility] HospitalComment on above:Performed By: #### 53830, 15135, 24266 ####[facility] [place] [address], USAGlucose mass conc 140 mg/iPBuhg35-214Vsl [facility] HospitalComment on above: Performed By: #### 09321, 30543, 74554 ####[facility] [place] [address], USAGlucose mass afua078 mg/dLHigh 70-100The [facility] HospitalComment on above:Performed By: #### 34637, 19492, 74918 ####[facility] [facility] [place] [address], [facility] HOSPITALGlucose mass anll469 mg/kNWcyf30-014Rou [facility] HospitalComment on above:Performed By: #### 98388, 26754, 52352 ####[facility] [facility] [place] [address], [facility] PROTHROMBIN TIMEon 12-00-7144IRJ Coag RelTime (PPP)1.07 {INR}Normal0.91-1.16The [facility] HospitalComment on above:Result Comment: ACCCP RECOMMENDED INR FOR WARFARIN THERAPY CONDITION INRPROPHYLAXIS OF VENOUS THROMBOSIS 2-3(HIGH-RISK SURGERY)TREATMENT OF VENOUS THROMBOSIS 2-3TREATMENT OF PULMONARY EMBOLISM 2-3PREVENTION OF SYSTEMIC EMBOLISM: 2-3 ACUTE MYOCARDIAL INFARCTION TISSUE HEART VALVES VALVULAR HEART DISEASE ATRIAL FIBRILLATION RECURRENT SYSTEMIC EMBOLISMMECHANICAL HEART VALVE 2.5-3.5 FROM: ORAL ANTICOAGULANTS. MECHANISM OF ACTION, CLINICALEFFECTIVENESS, AND OPTIMAL THERAPEU TIC RANGE. [id number];108:231S-246S.Performed By: #### 14984, 47315, 98871 ####[facility] [facility] [place] [address], [facility] Prothrombin time (PT) Coag time (PPP)13.9 vNpfdkm81.3-14.8The [facility] HospitalComment on above:Result Comment: ALL RESULTS MUST BE INTERPRETED WITH RESPECT TO BLOOD DRAWING ARTIFACTOR DILUTION ERROR OF ANTICOAGULANT AT THE TIME OF SAMPLING.Performed By: #### 57104, 83882, 15464 ####[facility] [facility] [place] [address], [facility] TROPONIN-Ion 49-99-3180Goftmwgk I.cardiac mass conc1.75 ng/mLCritically high 0.00-0.04The [facility] HospitalComment on above:Result Comment: REFERENCE RANGES: 0.00 - 0.04 ng/ml NORMAL 0.05 - 0.50 ng/ml INDETERMINATE > 0.50 ng/ml CONSISTENT WITH AN M.I.Performed By: #### 23333, 34479, 91291 ####[place] [address] [facility].[address] UFH HEPARIN ASSAYon 69-04-1788XOOZGFMQQRPTHJ HEPARIN0.39 IU/mLNormal0.30-0.70The [facility] HospitalComment on above:Result Comment: Rivaroxaban and Apixaban will interfere with the anti Xa assay used tomonitor UFH and LMWH. Performed By: #### 87564, 29597, 61425 ####[facility] [facility].[address] StreetUNFRACTIONATED HEPARIN0.52 IU/mL Normal0.30-0.70The [facility] HospitalComment on above:Result Comment: Rivaroxaban and Apixaban will interfere with the anti Xa assay used tomonitor UFH and LMWH.Performed By: #### 97451, 92017, 89324 ####[place] [address] [facility] [place] [address], [facility] HOSPITALAPTTon 09-15-2017 aPTT30.5 gRfrgvz08.0-35.0The [facility] HospitalComment on above:Result Comment: ALL RESULTS MUST BE INTERPRETED WITH RESPECT TO BLOOD DRAWING ARTIFACTOR DILUTION ERROR OF ANTICOAGULANT AT THE TIME OF SAMPLING.THE APTT SHOULD NOT BE USED TO MONITOR UNFRACTIONATED HEPARIN THERAPY, THIS LABORATORY NO LONGER HAS AN ESTABLISHED THERAPEUTIC RANGE BASEDON THE APTT. IT IS RECOMMENDED THAT THE UFH - HEPARIN ASSAY (ANTI-XAACTIVITY) BE USED FOR THIS PURPOSE.Performed By: #### 11552, 65964, 36007 ####[facility] [place] [address], USABASIC METABOLIC PANELon 09-15-2017 Calcium9.8 mg/dLNormal8.6-10.3The [facility] HospitalComment on above:Performed By: #### 02949, 63169, 18421 ####[facility] [place] [address], UEPHmsszjpn55 mmol/RXogaen74-304Nad [facility] HospitalComment on above:Performed By: #### 04394, 01623, 38070 ####[place] [address] [place] [address], EFFCH657 mmol/PZwuaca60-00Kjs [facility] Comment on above:Performed By: #### 44285, 36427, 78861 ####[place] [address] [place] [address], USACreatinine1.17 mg/dLNormal 0.60-1.20The [facility] HospitalComment on above:Performed By: #### 58958, 14229, 70005 ####[place] [address] [place] [address], USAeGFR (black)55 ml/min/1.73sq mAbnormal>60The [facility] HospitalComment on above:Result Comment: Calculation may not be valid for patients over 70 yearsPerformed By: #### 64181, 94241, 89023 ####[place] [address] [place] [address], [place] eGFR (non-black)45 ml/min/1.73sq mAbnormal>60The [facility] HospitalComment on above:Result Comment: Calculation may not be valid for patients over 70 yearsPerformed By: #### 59328, 36419, 34957 ####[place] [address] [place] [address], [facility] HOSPITALGlucose mass llhk565 mg/dL Idmr96-723Lvi [facility] HospitalComment on above:Performed By: #### 28382, 97033, 25139 ####[address] [place] [address], [facility]OS[facility]ITALPotassium molar conc3.5 mmol/LNormal3.5-5.1The [facility] HospitalComment on above:Performed By: #### 47475, 58934, 40048 ####[address] [place] [address], ARULbiybz336 mmol/FEartfr143-147Vgl [facility] HospitalComment on above:Performed By: #### 24582, 98631, 42887 ####[address] [place] [address], USAUrea vbnytwns67 mg/dLNormal7-25The [facility] HospitalComment on above:Performed By: #### 46337, 12060, 69875 ####[address] [place] [address], [facility]OSPITALCB W/DIFFon 98-40-1287EIP BASOPHILS0.1 10*3/uLNormal0.0-0.2The [facility] HospitalComment on above: Performed By: #### 27754 ####[address] [place] [address], [facility] HOSPITALABS IMM GRANS0.1 10*3/uLNormal0.0-0.2The [facility] HospitalComment on above:Performed By: #### 57804 ####[address] [place] [address], [facility] HOSPITALBasophils Auto #/vol (Bld)0.5 %Normal0.0-1.0The [facility] HospitalComment on above:Performed By: #### 38001 ####[place] [address] [place] [address], USAEosinophils0.1 10*3/uLNormal0.0-0.5The [facility] HospitalComment on above:Performed By: #### 16970 ####[facility] [place] [address], [facility] Eosinophils/100 leukocytes1.1 %Normal0.0-6.0The [facility] HospitalComment on above:Performed By: #### 19973 ####[facility] [facility] [place] [address], [facility]IAL HOSPITALErythrocyte distribution width Auto Ratio (RBC)12.6 %Qnpxxr84.5-15.0[facility] Comment on above:Performed By: #### 99135 ####[facility] [place] [address].[place] [address], [facility] HOSPITALErythrocytes (RBC)4.18 10*6/uL Normal3.80-5.00The [facility] HospitalComment on above:Performed By: #### 53369 ####[facility] [facility] [place] [address], [facility] HOSPITALErythrocytes (RBC)0 %Normal0-0The [facility] HospitalComment on above:Performed By: #### 62760 ####[facility] [facility] [place] [address], [facility] HOSPITALHematocrit (HCT)38.3 %Normal 36.0-45.0The [facility] HospitalComment on above:Performed By: #### 87309 ####[facility] [facility] [place] [address], [facility] HOSPITALHemoglobin mass conc (Bld)12.9 g/eNAjeqiv95.0-15.0The [facility] HospitalComment on above:Performed By: #### 75324 ####[facility] [place] [address].[place] [address], USAIMMATURE GRANS1.0 % Normal0.0-1.0The [facility] HospitalComment on above:Performed By: #### 29680 ####[facility] [place] [address], [facility] HOSPITALLymphocytes1.9 10*3/uLNormal1.2-4.0The [facility] HospitalComment on above:Performed By: #### 02613 ####[facility] [place] [address], [facility] HOSPITALLymphocytes/100 agorbwxklq48.7 % Low20.0-45.0The [facility] HospitalComment on above:Performed By: #### 67614 ####[facility] [facility] [place] [address], MPHKVU04.9 xqAbdhvo74.0-33.0[facility] Comment on above:Performed By: #### 16028 ####[facility] [facility] [place] [address], [facility]ENEHC mass conc (RBC)33.7 g/dL Biwsns89.0-35.0The [facility] HospitalComment on above:Performed By: #### 92808 ####[facility] [facility] [place] [address], GHKSEZ83.6 lVRcmdzj18.0-98.0[facility] Comment on above:Performed By: #### 59608 ####[facility] [facility] [place] [address], [facility]OSPITALMonocytes0.6 10*3/uLNormal0.1-1.0 The [facility] HospitalComment on above:Performed By: #### 84514 ####[facility] [facility] [place] [address], [facility] MONOS6.0 %Normal5.0-12.0The [facility] HospitalComment on above: Performed By: #### 15284 ####[facility] [facility] [place] [address], [facility] HOSPITALNeutrophils7.5 10*3/uLNormal1.6-7.6The [facility] HospitalComment on above:Performed By: #### 54953 ####[facility] [facility] [place] [address], [facility] HOSPITALNeutrophils/100 rsjromvwwg76.7 %High40.0-72.0The [facility] HospitalComment on above:Performed By: #### 45169 ####[address] [place] [address], USAPLAT XEV514 10*3/yIRhoctt504-890Enx [facility] HospitalComment on above:Performed By: #### 38305 ####[address] [place] [address], [facility] WBC (Leukocytes)10.4 10*3/uLNormal4.0-10.6The [facility] HospitalComment on above:Performed By: #### 03188 ####[place] [address], [facility] HOSPITALLIPID PROFILEon 09-15-2017 Lpatdeacqhp925 mg/bOQoknov844-498Kqv [facility] HospitalComment on above:Result Comment: CHOLESTEROL REFERENCE RANGE:20 YEARS AND OLDER CARDIOVASCULAR RISKLess than 200 mg/dl Low Ytfp341 to 239 mg/dl Borderline Symq702 mg/dl and greater High RiskPerformed By: #### 09858, 07847, 36250 ####[place] [address], [facility] Cholesterol to HDL Ratio3.0 {ratio}Normal.0-4.5The [facility] HospitalComment on above:Performed By: #### 12889, 94693, 64078 ####[address] [place] [address], USAHDL Qyclysttsbh15 mg/nCTadvrr97-88Dbr [facility] HospitalComment on above:Result Comment: Slight variation in normal range could be due to gender and/or age.HDL CHOLESTEROL REFERENCE RANGE:20 years and older Cardiovascular Risk> or =60 mg/dL Liajfyanb81 TO 59 mg/dL Low Risk<40 mg/dL High RiskPerformed By: #### 68712, 61436, 66332 ####[facility] [facility] [place] [address], USALDL Usvlyeidnef91 mg/dLNormal0-130The [facility] HospitalComment on above:Result Comment: LDL IS A CALCULATIONLDL IS ONLY VALID IF THE TRIG IS LESS THAN 400.Performed By: #### 63940, 45108, 08277 ####[address] [place] [address], USANON-HDL SMXSVDETYAD474 mg/dLNormalThe [facility] HospitalComment on above:Performed By: #### 69134, 28727, 67294 ####[facility] [facility] [place] [address], EKHSitifglhjsbz182 mg/yUEeor39-240Vke [facility] HospitalComment on above:Result Comment: TRIGLYCERIDE REFERENCE RANGE:20 YEARS AND OLDER CARDIOVASCULAR RISKLESS THAN 150 mg/dl LOW CUDH995 TO 199 mg/dl BORDERLINE SECT094 mg/dl AND GREATER HIGH RISKPerformed By: #### 36431, 14593, 76939 ####[facility] [facility] [place] [address], USAVLDL CHOL44 mg/dLHigh0-40The [facility] HospitalComment on above:Performed By: #### 01993, 59663, 89316 ####[facility] [place] [address].[place] [address], [place] PORTABLE CHEST 1 VIEWon 70-38-7069ZZTICYYN CHEST 1 VIEWUnWooster Community HospitalDepartment of Xxexzgbck[address] [place] [id number] Patien t Name: ARIADNA COPELAND : 1945Sex: FAge: Race: WhiteMRN: [id number]. Location: EMERPatient Status: IVisit #: [id number] Date: 09/15/2017 8:15:00 PMCompleted Date: 09/15/2017 08:23 PMRequesting Provider: MICKEY YU Attending Provider: MICKEY YU Report Copy To: Signs & Symptoms: Chest PainHistory: Patient history not availableComments: R/O PneumoniaExam: PORTABLE CHEST 1 VIEWAccession #: [id number] =PORTABLE CHEST 1 VIEW 09/15/2017 8:23 PM EST SIGNS AND SYMPTOMS: Chest Pain TECHNOLOGIST COMMENTS: Chestpain and vomiting. QUESTION FOR THE RADIOLOGIST: R/O Pneumonia PROTOCOL: AP(PA) view was obtained. COMPARISON: None FINDINGS: Trachea is midline. Cardiomediastinal silhouette within normal limits. Lungs are clear with no focal airspace disease. No pleural effusion or pneumothorax. No free air underdiaphragm. Metallic clip in the right upper quadrant likely from prior gallbladder surgery. IMPRESSION: No radiographic evidence of acute cardiopulmonary process. Approved by:Walker Barnard on 09/16/2017 8:34 AM EST. I, Neeru Lane, have reviewed the images and report and concur with these findings. Electronically signed by:Neeru Lane. Transcribed by: [email or web address], User Resident: WALKER BARNARDElectronically Signed by: NEERU LANE @ 09/16/2017 10:35 AMI personally read this/these film(s) with this [facility] HospitalComment on above:Order Comment: R/O PneumoniaPROTHROMBIN TIMEon 06-77-6434IEU Coag RelTime (PPP)1.01 {INR}Normal0.91-1.16The [facility] HospitalComment on above: Result Comment: ACCCP RECOMMENDED INR FOR WARFARIN THERAPY CONDITION INRPROPHYLAXIS OF VENOUS THROMBOSIS 2-3(HIGH-RISK SURGERY)TREATMENT OF VENOUS THROMBOSIS 2-3TREATMENT OF PULMONARY EMBOLISM 2-3PREVENTION OF SYSTEMIC EMBOLISM: 2-3 ACUTE MYOCARDIAL INFARCTION TISSUE HEART VALVES VALVULAR HEART DISEASE ATRIAL FIBRILLATION RECURRENT SYSTEMIC EMBOLISMMECHANICAL HEART VALVE 2.5-3.5 FROM: ORAL ANTICOAGULANTS. MECHANISM OF ACTION, CLINICALEFFECTIVENESS, AND OPTIMAL THERAPEU TIC RANGE. [id number];108:231S-246S.Performed By: #### 31728, 70283, 58036 ####[facility] [facility] [place] [address], [facility] Prothrombin time (PT) Coag time (PPP)13.3 iYuhyha42.3-14.8The [facility] HospitalComment on above:Result Comment: ALL RESULTS MUST BE INTERPRETED WITH RESPECT TO BLOOD DRAWING ARTIFACTOR DILUTION ERROR OF ANTICOAGULANT AT THE TIME OF SAMPLING.Performed By: #### 77871, 61102, 84718 ####[facility] [facility] [place] [address], [facility] TROPONIN-Ion 55-64-6002Uujmwdoo I.cardiac mass conc1.87 ng/mLCritically high 0.00-0.04The [facility] HospitalComment on above:Result Comment: M-CRITICAL RESULT(S) REVIEWED, CALLED TO AND READ BACK BY SANTIAGO RAYGOZA RNAT 2124REFERENCE RANGES: 0.00 - 0.04 ng/ml NORMAL 0.05 - 0.50 ng/ml INDETERMINATE > 0.50 ng/ml CONSISTENT WITH AN M.I.Performed By: #### 70345, 87424, 31904 ####[facility] [facility].[address] UFH HEPARIN ASSAYon 06-37-4409QDLPHVFNZQQGAZ HEPARIN<0.10Critically low0.30-0.70 The [facility] HospitalComment on above:Result Comment: Rivaroxaban and Apixaban will interfere with the anti Xa assay used tomonitor UFH and LMWH.RESULTS CHECKED AND CALLED. ACCURATELY READ BACK BY SANTIAGO STOLL RN @2125Performed By: #### 12370, 14773, 89321 ####[facility] [facility] [place] [address], [facility] Vital Signs Date TimeVital SignValuePerforming WxoihbkaaOptmqtwn82-11-3876 10:33-0400Body pafpxe958.56 cmBenjamin Ball DO Work Phone: [facility]07-28-2025 10:33-0400 Body mass index (BMI) [Ratio]24.1 kg/n7Wlobkfhu Ball DO Work Phone: [facility]07-28-2025 10:33-0400 Body .72 kgBenjamin Ball DO Work Phone: [facility]07-28-2025 10:33-0400 Diastolic blood cdzmyeuw99 mm[Hg]Ruiz Ball DO Work Phone: [facility]07-28-2025 10:33-0400 Heart rate60 /minBenjamin Ball DO Work Phone: [facility]07-28-2025 10:33-0400 Respiratory rate12 /minBenjamin Ball DO Work Phone: [phone] [place], [place] 032[address]7-28-2025 10:33-0400 SaO2% (BldA) [Mass fraction]98 %Ruiz Ball DO Work Phone: [phone] [place], [place] 0322607-28-2025 10:33-0400 Systolic blood hqsyozql040 mm[Hg]Ruiz Ball DO Work Phone: [phone] [place], [place] 0322607-14-2025 08:34-0400 Body .56 cmBenjamin Ball DO Work Phone: 1(419)[address] [place], [place] 0322607-14-2025 08:34-0400 Body mass index (BMI) [Ratio]24.5 kg/h4Uxkjfrna Ball DO Work Phone: 1(419)[address] [place], [place] 0322607-14-2025 08:34-0400 Body bkqwtkdsuxf31.3 [degF]Ruiz Ball DO Work Phone: 1(419)[address] [place], [place] 0322607-14-2025 08:34-0400 Body tjqafr69.86 kgBenjamin Ball DO Work Phone: 1(419)[address] [place], [place] 0322607-14-2025 08:34-0400 Diastolic blood jwtnjnhu32 mm[Hg]Ruiz Ball DO Work Phone: 1(419)[address] [place], [place] 0322607-14-2025 08:34-0400 Heart rate68 /minBenjamin Ball DO Work Phone: 1(419)[address] [place], [place] 0322607-14-2025 08:34-0400 SaO2% (BldA) [Mass fraction]96 %Ruiz Ball DO Work Phone: 1(419)[address] [place], [place] 0322607-14-2025 08:34-0400 Systolic blood cazugnju693 mm[Hg]Ruiz Ball DO Work Phone: 1(419)[address] [place], [place] 0322607-01-2025 15:44-0400 Body ttolnm802.56 cmBenjamin Ball DO Work Phone: 1(419)[address] [place], [place] 0322607-01-2025 15:44-0400 Body mass index (BMI) [Ratio]24.3 kg/x7Usijegbh Ball DO Work Phone: [facility]07-01-2025 15:44-0400 Body .12 kgBenjamin Ball DO Work Phone: [facility]07-01-2025 15:44-0400 Diastolic blood eszmitrl72 mm[Hg]Ruiz Ball DO Work Phone: [facility]07-01-2025 15:44-0400 Heart rate61 /minBenjamin Ball DO Work Phone: [facility]07-01-2025 15:44-0400 Respiratory rate12 /minBenjamin Ball DO Work Phone: [facility]07-01-2025 15:44-0400 Systolic blood mm[Hg]Ruiz Ball DO Work Phone: [facility]03-17-2025 10:39-0400 Body heghzk226.56 cmMag[facility]03-17-2025 10:39-0400Body mass index (BMI) [Ratio]24.9 kg/y0IqcofvtpkMagruder Memorial Hospital03-17-2025 10:39-0400Body bmenaa11.77 kgMag[facility] Hospital03-17-2025 10:39-0400Diastolic blood ylgfcumc88 mm[Hg][facility] 10-25-2024 10:39-0400Heart rate52 /[facility] 10-25-2024 10:39-0400Respiratory rate12 /[facility] 10-25-2024 10:39-0387VuR1% (BldA) [Mass fraction]100 %[facility]03-17-2025 10:39-0400Systolic blood mdtxlaxu781 mm[Hg][facility]01-14-2025 10:09-0500Diastolic blood appuoygv27 mm[Hg]Andry JEISON [facility]01-14-2025 10:09-0500Mean blood wvmpyfyt28 mm[Hg]Andry MARQUEZ [facility]01-14-2025 10:09-0500Systolic blood brhfkmko663 mm[Hg]Andry MARQUEZ [facility]01-14-2025 09:43-0500Diastolic blood tkbyatfa81 mm[Hg]Andry MARQUEZ [facility]01-14-2025 09:43-0500Heart rate63 /minAndry MARQUEZ [facility]01-14-2025 09:43-0500Systolic blood jqtirdtg626 mm[Hg]Andry MARQUEZ [facility] [place] 874431-18-2024 13:53-0500Body aissyw684.56 cmMag[facility]11-18-2024 13:53-0500Body mass index (BMI) [Ratio]24.7 kg/c6OvurjierfMagruder Memorial Hospital11-18-2024 13:53-0500Body iirrwl46.43 kgMag[facility] Hospital11-18-2024 13:53-0500Diastolic blood gpnajqqc32 mm[Hg] [facility]11-18-2024 13:53-0500Heart rate81 /[facility]11-18-2024 13:53-0500Respiratory rate12 /[facility]11-18-2024 13:53-0500Systolic blood nidmcqcu046 mm[Hg] [facility]09-20-2024 11:05-0400Body nupbtu926.56 cm [facility]09-20-2024 11:05-0400Body mass index (BMI) [Ratio]25.1 kg/n2SmpntqnkfMagruder Memorial Hospital09-20-2024 11:05-0400Body iiydqx00.45 kgMag[facility] Hospital09-20-2024 11:05-0400Diastolic blood igvbetxa64 mm[Hg][facility]09-20-2024 11:05-0400 Heart rate62 /[facility]09-20-2024 11:05-0400 Respiratory rate12 /[facility]09-20-2024 11:05-0400 Systolic blood dtukeban534 mm[Hg][facility]09-11-2024 12:11-0400Body mdiaqp624.56 cmMag[facility] Hospital09-11-2024 12:11-0400Body mass index (BMI) [Ratio]24.9 kg/r8UnlessinlMagruder Memorial Hospital09-11-2024 12:11-0400Body yijxhc41.88 [facility] 04-21-2024 12:11-0400Diastolic blood zymywqtl48 mm[Hg][facility]09-11-2024 12:11-0400Heart rate76 /[facility] 04-21-2024 12:11-0400Respiratory rate12 /[facility] 04-21-2024 12:11-0400Systolic blood ksimooie233 mm[Hg][facility]09-03-2024 11:02-0400Body eiopzt860.56 cmMag[facility]09-03-2024 11:02-0400Body mass index (BMI) [Ratio]25.2 kg/v9UmuawqmklMagruder Memorial Hospital09-03-2024 11:02-0400Body qgrsva46.73 kgMag[facility] Hospital09-03-2024 11:02-0400Diastolic blood xpdnjhoj16 mm[Hg] [facility]09-03-2024 11:02-0400Heart rate52 /[facility]09-03-2024 11:02-0400Respiratory rate12 /[facility]09-03-2024 11:02-0400Systolic blood qiqcnspg466 mm[Hg] [facility]05-29-2024 10:34-0400Body qawyol894.56 cm [facility]05-29-2024 10:34-0400Body mass index (BMI) [Ratio]25.4 kg/i1DaylwkiymMagruder Memorial Hospital05-29-2024 10:34-0400Body .18 kgMag[facility] Hospital05-29-2024 10:34-0400Diastolic blood igutlzol99 mm[Hg][facility]05-29-2024 10:34-0400 Heart rate76 /minMagruder Memorial Hospital05-29-2024 10:34-0400 Respiratory rate12 /[facility]05-29-2024 10:34-0400 Systolic blood kyvgiozl299 mm[Hg][facility]01-23-2024 08:56-0500Diastolic blood mm[Hg]Andry MARQUEZ [facility]01-23-2024 08:56-0500Heart rate72 /minAndry [place] [facility]01-23-2024 08:56-0500Systolic blood dgxfyxrd031 mm[Hg]Andry [place] [facility] [place] 270531-20-2023 09:30-0500Body vadclg492.56 cmBenjamin Ball Other [employer] Other 11-20-2023 09:30-0500Body mass index (BMI) [Ratio] 24.34 kg/x2Ogosevhd Ball Other [employer] Other 11-20-2023 09:30-0500Body .32 kgBenjamin Ball Other [employer] Other 11-20-2023 09:30-0500Diastolic blood lsszaevh72 mm[Hg] Ruiz Ball Other [employer] Other 11-20-2023 09:30-0500Respiratory rate12 /minBenjamin Ball Other [employer] Other 11-20-2023 09:30-0500Systolic blood cimjmbuy592 mm[Hg] Ruiz Ball Other [employer] Other 08-17-2023 09:00-0400Body duimgw528.56 cmBenjamin Ball Other [employer] Other 08-17-2023 09:00-0400Body mass index (BMI) [Ratio] 25.09 kg/x4Xigwnhjg Ball Other [employer] Other 08-17-2023 09:00-0400Body gedioy24.32 kgBenjamin Ball Other [employer] Other 08-17-2023 09:00-0400Diastolic blood hsolnocw97 mm[Hg] Ruiz Ball Other [employer] Other 08-17-2023 09:00-0400Respiratory rate12 /minBenjamin Ball Other [employer] Other 08-17-2023 09:00-0400Systolic blood vqvnxpaj345 mm[Hg] Ruiz Ball Other [employer] Other 07-17-2023 11:30-0400Body ttnodu232.56 cmBenjamin Ball Other [employer] Other 07-17-2023 11:30-0400Body mass index (BMI) [Ratio] 25.09 kg/b4Ximgesha Ball Other [employer] Other 07-17-2023 11:30-0400Body cepvct17.32 kgBenjamin Ball Other [employer] Other 07-17-2023 11:30-0400Diastolic blood urvglpoi66 mm[Hg] Ruiz Ball Other [employer] Other 07-17-2023 11:30-0400Respiratory rate12 /minBenjamin Ball Other [employer] Other 07-17-2023 11:30-0400Systolic blood ycrheraj801 mm[Hg] Ruiz Ball Other [employer] Other 05-11-2023 10:00-0400Body ivghpd062.56 cmBenjamin Ball Other [employer] Other 05-11-2023 10:00-0400Body mass index (BMI) [Ratio]25.5 kg/q4Gcfkpgvw Ball Other [employer] Other 05-11-2023 10:00-0400Body pkswyb24.4 kgBenjamin Ball Other [employer] Other 05-11-2023 10:00-0400Diastolic blood htlqlzpe71 mm[Hg] Ruiz Ball Other [employer] Other 05-11-2023 10:00-0400Respiratory rate12 /minBenjamin Ball Other [employer] Other 05-11-2023 10:00-0400Systolic blood zgixzkaa845 mm[Hg] Ruiz Ball Other [employer] Other 02-08-2023 10:00-0500Body rzrucz902.56 cmBensegundo Soni Other [employer] Other 02-08-2023 10:00-0500Body mass index (BMI) [Ratio] 25.47 kg/k2Dexmzlpy Ball Other [employer] Other 02-08-2023 10:00-0500Body .31 kgBensegundo Soni Other [employer] Other 02-08-2023 10:00-0500Diastolic blood txdkubte28 mm[Hg] Ruiz Soni Other [facility] ServicesTai[facility] [employer] Other 02-08-2023 10:00-0500Respiratory rate12 /minBekristal Soni Other [employer] Other 02-08-2023 10:00-0500Systolic blood lgavfeig361 mm[Hg] Ruiz Soni Other [employer] Other Encounters Encounter DateEncounter TypeCare ProviderFacilityStart: 05-20-2025 End: 83-81-2160mnwivjifjcNtrgmcdl Ball DO Work Phone: [facility] Work Phone: Start: 05-20-2025 End: 89-98-2420Ineasac encounter procedureJennifer Garza APRN SYSTEM SUPPORT ANALYST-[facility] Work Phone: Start: 05-17-2025 End: 58-85-6448Aghigp flowsheetCajuan manuel Bell DPM Work Phone: [facility]ryStart: 05-17-2025 End: 46-27-0097Lrjrfr flowsCristofer Bell DPM Work Phone: [facility] [place] PodiatryStart: 05-17-2025 End: 69-03-7176Pencfsm encounter procedureCheikh Bell DPM Work Phone: [facility] [place] PodiatryComment on above:Onychomycosis (Primary Dx); Pain in both feet; Type II diabetes mellitus with neurological manifestations (HCC)Start: 05-17-2025 End: 73-50-7580uoalhtgdyaFYJDSBBPP H SMITHNot AvailableStart: 03-07-2025 End: 48-70-4971jpbagcoetrIqbstlhi WebPesados DO Work Phone: [facility] Work Phone: Start: 03-07-2025 End: 52-20-9159Bkrpzjc encounter procedureBenjamin Hebron DO-[facility] Work Phone: Start: 02-21-2025 End: 13-97-2929sowznmudicNjhdaexk Ball DO Work Phone: [facility] Work Phone: Start: 02-21-2025 End: 10-96-9047Kblxfap encounter procedureJennifer Garza APRN SYSTEM SUPPORT ANALYST-[facility] Work Phone: Start: 02-14-2025 End: 80-00-9250Dovykv flowsCristofer Bell DPM Work Phone: [facility] [place] PODIATRYStart: 02-14-2025 End: 31-83-1818Pqtjkv Hamlet Bell DPM Work Phone: [facility] PODIATRYStart: 02-14-2025 End: 54-03-7565Mmjkxap encounter procedureCheikh Bell DPM Work Phone: [facility] SWS PODIATRYComment on above:Onychomycosis (Primary Dx); Pain in both feet; Type II diabetes mellitus with neurological manifestations (HCC); 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)Start: 02-14-2025 End: 62-54-5647ihwqfmpiaaVFUZWQXVP H SMITHNot AvailableStart: 02-08-2025 End: 01-45-8367edveoiqfojMkdjclbr Ball DO Work Phone: [facility] Work Phone: Start: 02-08-2025 End: 64-61-9486Ubihceb encounter procedureBenkirsten Soni DO-[facility] Work Phone: Start: 12-07-2024 End: 02-45-1801Gfimbz flowsCristofer Bell DPM Work Phone: [facility] PODIATRYStart: 12-07-2024 End: 20-90-2033Eaunkt Hamlet Bell DPM Work Phone: [facility]WS PODIATRYStart: 12-07-2024 End: 58-96-6114Vgginkq encounter procedureCheikh Bell DPM Work Phone: [facility] PODIATRYComment on above:Onychomycosis (Primary Dx); Pain in both feet; Type II diabetes mellitus with neurological manifestations (CMS/HCC)Start: 12-07-2024 End: 57-51-2665brqclxsncpBUFQDZINI H SMITHNot AvailableStart: 10-25-2024 End: 88-66-4316xgvbplqifrIqnzcchpnGenesis Hospital Work Phone: Start: 10-25-2024 End: 40-28-3202Wzzwbin encounter procedureAt[facility] Work Phone: Start: 10-04-2024 End: 97-87-9100Tgerbx Hamlet Bell DPM Work Phone: [facility]WS PODIATRYStart: 10-04-2024 End: 46-66-0251Lsjwuz flowsCristofer Bell DPM Work Phone: [facility] PODIATRYStart: 10-04-2024 End: 60-95-5156Jreryls encounter procedureCajuan manuel Bell DPM Work Phone: [facility] SWS PODIATRYComment on above:Onychomycosis (Primary Dx); Pain in both feet; Type II diabetes mellitus with neurological manifestations (CMS/HCC)Start: 10-04-2024 End: 92-64-3411oovkgbsgduJQPOZEEWF H SMITHNot AvailableStart: 08-24-2024 End: 46-90-1383emhjcmezatIlilvam P COOKFacility:EU SanduskyStart: 08-24-2024 End: 65-92-8461Fovxmob encounter procedureAndry MARQUEZ [facility] Start: 07-27-2024 End: 73-04-2587Jjemia Hamlet Bell DPM Work Phone: [facility] PODIATRYStart: 07-27-2024 End: 14-73-2138Pjddlb flowsCristofer Bell DPM Work Phone: [facility] PODIATRYStart: 07-27-2024 End: 30-70-0456Lhxsxzi encounter procedureCajuan manuel Bell DPM Work Phone: [facility] SWS PODIATRYComment on above:Onychomycosis (Primary Dx); Pain in both feet; Type II diabetes mellitus with neurological manifestations (CMS/HCC)Start: 07-27-2024 End: 77-54-9074lnhuxqktuzKIXVLSYQJ H SMITHNot AvailableStart: 07-22-2024 End: 10-82-8571Daqyng Edgar Arevalo MD Work Phone: [facility] NB OPHTStart: 07-22-2024 End: 19-36-0668Xahmfh Edgar Arevalo MD Work Phone: [facility] NB OPHTStart: 07-22-2024 End: 70-65-8987cylqezsvuvULGYK M ALLENNot AvailableStart: 06-28-2024 End: 28-82-5091rtmynbodpzTfwraxczmAvita Health System Work Phone: Start: 06-28-2024 End: 31-42-2774Fpkwyiw encounter procedureAt[facility] Physician [facility] Work Phone: Start: 05-31-2024 End: 67-74-6324dkqwrquuugXmuewyiiyAvita Health System Work Phone: Start: 05-31-2024 End: 55-81-7636Mkvtwit encounter procedureAt[facility] Physician [facility] Work Phone: Start: 05-17-2024 End: 06-08-3918Cpwvcu flowsCristofer Bell DPM Work Phone: [facility] PODIATRYStart: 05-17-2024 End: 00-07-9031Ybsetg flowsCristofer Bell DPM Work Phone: [facility] PODIATRYStart: 05-17-2024 End: 07-44-2609Jkwdhmx encounter procedureCheikh Bell DPM Work Phone: n[facility] PODIATRYComment on above:Onychomycosis (Primary Dx); Pain in both feet; Type II diabetes mellitus with neurological manifestations (CMS/HCC); Corns and callositiesStart: 04-30-2024 End: 62-86-5725nuqyiucftgIhepbbaneAvita Health System Work Phone: Start: 04-30-2024 End: 48-87-5098Xyedvlu encounter procedureAt[facility] Physician [facility] Work Phone: Start: 04-21-2024 End: 03-11-7901nxugkdnfmhPghhmvckgAvita Health System Work Phone: Start: 04-21-2024 End: 06-01-7757Hykkdil encounter procedureAt[facility] Physician [facility] Work Phone: Start: 15-84-7887Xat-patient / Non-visitFircentra [facility] Physician GroupNav[facility] Work Phone: Start: 04-13-2024 End: 41-22-2745cveonkqynhCjzmyjovsGenesis Hospital Work Phone: Start: 04-13-2024 End: 84-27-3986Ixrsrjf encounter procedureAt[facility] Physician GroupL[facility] Work Phone: Start: 85-28-4559Kpwluop encounter procedureAshtabula County Medical Centertart: 01-07-2024 End: 67-99-2161krwqewscndGjexxaakrGenesis Hospital Work Phone: Start: 01-07-2024 End: 72-63-9446Irbcckh encounter procedureAt[facility] Physician [facility] Work Phone: Start: 97-85-1207Pej-patient / Non-visitAtrium Health [facility] Physician [facility] Work Phone: Start: 09-15-2023 End: 58-17-2682wwogutssnkPgmsyiib Ball Other [employer] Other Start: 79-79-9063Xlzljjipi encounterBenjamin Maria Del Carmen Soni [facility] Hospitaltart: 09-02-2023 End: 02-74-3218zopmodvyqfFipsqsv P JEISONFacility:EU [place]kyStart: 09-02-2023 End: 16-96-9647Iieirjg encounter procedureGregory P COOK [facility] Leon Start: 07-21-2023 End: 66-80-6076vlqvzmtiruAdgfqeil Ball Other [employer] Other Start: 28-40-3386Moarthkes encounterBenjamin BallELVIG [facility] ClinicStart: 06-30-2023 End: 34-07-3278qhfvdoqhakDjfjsemy Ball Other [employer] Other Start: 20-73-5283Xpmjkh outpatient visit 25 minutes Ruiz BallFPG [facility] ClinicStart: 06-24-2023 End: 53-23-8254xdhlkixihoZbqgcigu Ball Other [employer] Other Start: 55-21-9811Ddgzas outpatient visit 15 minutes Ruiz BallFPG [facility] ClinicStart: 03-31-2023 End: 34-19-0796dkyftucjjdUajpgyvh Ball Other [employer] Other Start: 42-82-9803Ueilvfamv encounterBenjamin BallFPG [facility] ClinicStart: 03-27-2023 End: 20-32-3083svtfvwxqsaJpphzyon Ball Other [facility] [employer] Other Start: 76-28-8532Lwlkdql encounter procedureBenjamin BallFPG [facility] ClinicStart: 03-25-2023 End: 21-42-8406yzmmlljqfxFuzjjfhh Ball Other [facility] [employer] Other Start: 10-12-8095Zxjiztfko encounterBenjamin BallFPG [facility] ClinicStart: 03-24-2023 End: 65-06-8635ykxplhmbvhFrjirlrn Ball Other [employer] Other Start: 92-42-6973Jlcwxvcji encounterBenjamin BallFPG [facility] ClinicStart: 03-13-2023 End: 71-90-4128smhvvmhlzqXxolgtqh Ball Other [employer] Other Start: 72-81-2813Cubduiyme encounterBenjamin BallFPG [facility] ClinicStart: 03-11-2023 End: 40-25-5101wsmybxscwmQoobygfu Ball Other [employer] Other Start: 32-25-3702Bqfpljplp encounterBenjamin BallFPG [facility] ClinicStart: 02-26-2023 End: 70-91-2917krpiwzuzwdVcroateh Ball Other [employer] Other Start: 41-30-0927Vuewdiilo encounterBenjamin BallFPG [facility] ClinicStart: 02-24-2023 End: 44-62-7650juknlolvpxKzlafifk Ball Other [employer] Other Start: 28-64-4911Nygmrb outpatient visit 15 minutes Ruiz BallFPG [facility] ClinicStart: 31-86-6035Mdgrgjiiy encounterBenjamin BallFPG [facility] ClinicStart: 02-10-2023 End: 09-03-6221Dpaxhrm encounter procedureGregory Dona JEISON [facility] Start: 02-04-2023 End: 58-75-8040eluomheicwMkkdqsse Ball Other [employer] Other Start: 45-33-8841Czsetfvfv encounterBenjamin BallFPG [facility] ClinicStart: 01-28-2023 End: 45-29-8259dixbqtigegStdatdug Ball Other [employer] Other Start: 75-02-4819Plmfsgiis encounterBenjamin BallFPG [facility] ClinicStart: 12-19-2022 End: 87-22-1789lgzcavzchcBraivwti Ball Other [employer] Other Start: 95-76-1726Mhtvdr outpatient visit 25 minutes Ruiz BallFPG [facility] ClinicStart: 11-11-2022 End: 52-24-3436phsepaitrcKT RUIZ ZACHARIAHFacility:Q4Ydjmc: 10-15-2022 End: 81-56-5690yytcmcfzvpJjoqkvvy Ball Other [employer] Other Start: 33-23-1373Jjljoj outpatient visit 15 minutes Ruiz Soni Medical ClinicStart: 09-18-2022 End: 54-79-3074oziwzldlqoKtqgysyw Ball Other [employer] Other Start: 16-56-5385Veagxr outpatient visit 25 minutes Ruiz Soni Medical ClinicStart: 03-20-2022 End: 53-06-4971pnyusgfpxaZW RUIZ SONIFacility:C3Jxyna: 68-44-2342Zulwu health examinationBekristal Soni Other [employer] Other Start: 02-27-2022 End: 48-00-2313aewvzptlopOM RUIZ SONIFacility:X8Hqbcr: 69-88-1938oevgyklmju DR RUIZ SONIFacility:R2Xpjql: 01-05-2022 End: 40-04-1153weotecphqpZN KAILEE STRONG .Facility:N4Vjpbv: 12-26-2021 End: 18-62-3753utetrydmebOM ISHAN LYON .Facility:I4Aquoj: 12-25-2021 End: 35-70-7648nexhjcdawvUI BENJAMIN BALLFacility:U2Pkrdp: 12-16-2017 End: 39-01-2630HbfroyaoncMCOXSQW PHYSICIANFacility:[facility]ITALtart: 09-15-2017 End: 65-50-1563Pptuuhmopi and management of inpatientREFERRED SELFFacility:[facility] Procedures DateProcedureProcedure DetailPerforming ClinicianStart: 07-22-2024 End: 51-13-5976Sdtkw medical xm&eval comprhnsv estab pt 1/>Type 2 diabetes mellitus without complication, with long-term current use of insulin ([facility] Sherita Arevalo MD Work Phone: comment on above:Type 2 diabetes mellitus without complication, with long-term current use of insulin (CMS/HCC) (Primary Dx); PseudophakiaStart: 11-17-2208Ulfcwaycls screeningBensegundo Soni Other Start: 72-49-8504Iadtshntg for osteoporosisBensegundo Soni Other Start: 05-45-9598RNLXXLWYTUO OF MULT COR ART USING L OSM CONTRASTMUJEEB A SHEIKHStart: 15-07-2903YSMMEQHXD OTH THERAP SUBST IN PERIPH VEIN, PERCSAMER J KHOURIStart: 81-33-7422STJLWEZ OF CARDIAC SAMPL \T\ PRESSURE, L HEART, PERC APPROACHMUJEEB A tart: 11-09-8134Vqpysoksr for malignant neoplasm of colonBekristal Soni Other Start: 19-99-0003Mrhoxmcza mammographyBensegundo Soni Other Screening for malignant neoplasm of breastBensegundo Soni Other Screening for malignant neoplasm of breastBensegundo Soni Other Plan of Treatment DateCare ActivityDetailAuthorStart: 10-20-2025 End: 57-49-7861Uuviaid encounter bzgvrbetm40/12/2026 11:15 AM EDT Procedure Visit [facility] [address] [place] [id number] Cheikh Bell DPM [address] [place] [address] [facility]ryStart: 07-27-2025 End: 47-17-3113Mcagvhp encounter procedureNOMS SWS PODIATRYStart: 05-17-2025 End: 86-59-9345Coogosf encounter procedureNOMS SWS PODIATRYComment on above: ArrivedStart: 45-00-9470Syxkvxqxl vaccinationInfluenza Vaccine (#1)[facility] HealthcareStart: 02-14-2025 End: 36-93-5823Uwqklxi encounter procedureNOMS SWS PODIATRYComment on above: ArrivedStart: 12-07-2024 End: 71-52-4958Ebmczxx encounter procedureNOMS SWS PODIATRYComment on above: ArrivedStart: 10-04-2024 End: 55-51-8373Kftcnhj encounter procedureNOMS SWS PODIATRYComment on above: ArrivedStart: 07-27-2024 End: 58-99-8993Tcvzivu encounter procedureNOMS SWS PODIATRYComment on above: ArrivedStart: 07-22-2024 End: 06-23-9550Yepeyfv encounter hotanifjn42/12/2024 10:30 AM EST Office Visit [facility] [address] [place] [address] Sherita Arevalo MD [address] [place] [address] ArrivedNOMS NB OPHTComment on above:ArrivedStart: 05-17-2024 End: 25-87-4650Dxpqrmu encounter jyxsohbbr39/07/2024 10:00 AM EDT Procedure Visit [facility] [address] [place] [id number] Cheikh Bell DPM [address] [place] [address] ArrivedNOMS SWS PODIATRYComment on above: ArrivedStart: 80-62-5834Uehtnggsz vaccinationInfluenza Vaccine (#1)[facility] HealthcareStart: 02-71-4863Luxinvnzijzd Vaccine: 65+ Years (2 of 2 - PPSV23 or PCV20)Pneumococcal Vaccine: 65+ Years (2 of 2 - PPSV23 or PCV20)[facility] Start: 21-32-4469Tnhdqaoofpnl Vaccine: 65+ Years (2 of 2 - PPSV23)Pneumococcal Vaccine: 65+ Years (2 of 2 - PPSV23)[facility] HealthcareComprehensive metabolic 2000 panel - Serum or PlasmaMagruder Memorial HospitalMG Breast - bilateral ScreeningMagruder Memorial HospitalMicroalbumin [Mass/volume] in Urine [facility] HospitalUS Thyroid glandAdventHealth Ocala Immunizations Immunization DateImmunizationNotesCare LfygtyetZjyzbuxq02-83-3534gfkfvcvmn virus vaccine, unspecified formulationSt. Dominic HospitalRotten Tomatoes [facility] [place] 874430-21-2024influenza, high dose seasonal, preservative-freeMagruder Memorial Hospital11-20-2023influenza virus vaccine, unspecified formulationMagruder Memorial Hospital11-20-2023influenza, high dose seasonal, preservative-freeBenjamin Ball Other [employer] Other [id number] virus vaccine, unspecified formulationSt. Dominic HospitalRotten Tomatoes [facility] [place] 874431-28-2022SARS-CoV-2 (COVID-19) mRNAMUL.ORD![id number] COOK [facility]09-28-2022influenza virus vaccine, unspecified formulationMagruder Memorial Hospital09-28-2022influenza, high dose seasonal, preservative-freeBenjamin Ball Other [employer] Other [id number] virus vaccine, split virus (incl. purified surface antigen)Ruiz Zachariah Other [employer] Other [id number] virus vaccine, unspecified formulationYummy77 [facility] [place] 874431-22-2021SARS-CoV-2 (COVID-19) mRNA BNT-162b2 vaxGregory COOK [facility]09-17-2021influenza virus vaccine, split virus (incl. purified surface antigen)Ruiz Soni Other [employer] Other [id number] virus vaccine, unspecified formulationMagruder Memorial Hospital02-18-2021SARS-CoV-2 (COVID-19) mRNA BNT-162b2 NeptunexYummy77 [facility] on above:Result Comment: 2023-09-02: [id number]-YgD-1 (COVID-19) mRNA BNT-162b2 Prevacus [facility] on above:Result Comment: 2023-09-02: [id number] virus vaccine, split virus (incl. purified surface antigen)Ruiz Soni Other [employer] Other [id number] virus vaccine, unspecified formulation[facility]09-20-2019influenza virus vaccine, unspecified formulationYummy77 [facility]09-14-2018influenza virus vaccine, split virus (incl. purified surface antigen)Ruiz Soni Other [employer] Other [id number] virus vaccine, unspecified formulationYummy77 [facility]09-07-2017influenza virus vaccine, split virus (incl. purified surface antigen)Ruiz Soni Other [employer] Other [id number] virus vaccine, unspecified formulationSt. Dominic HospitalRotten Tomatoes [facility]09-30-2016influenza virus vaccine, split virus (incl. purified surface antigen)Ruiz Soni Other [employer] Other [id number] virus vaccine, unspecified formulationSt. Dominic HospitalRotten Tomatoes [facility]11-03-2015tetanus and diphtheria toxoids, adsorbed, preservative free, for adult use (5 Lf of tetanus toxoid and 2 Lf of diphtheria toxoid)Ruiz Soni Other [facility]08-18-2015 pneumococcal conjugate vaccine, 13 valentBenjamin Zachariah Other [facility]08-18-2015 pneumococcal Conjugate, unspecified formulation; Translations: [Need for prophylactic vaccination against Streptococcus pneumoniae (pneumococcus)] Ruiz Soni Other [place] [employer] Other [id number] conjugate vaccine, 13 valent Andry TellWise [facility]-28-2014influenza virus vaccine, split virus (incl. purified surface antigen)Ruiz Soni Other [place] [employer] Other [id number] virus vaccine, unspecified formulationMagruder Memorial Hospital10-28-2013tetanus and diphtheria toxoids, adsorbed, preservative free, for adult use (5 Lf of tetanus toxoid and 2 Lf of diphtheria toxoid)Ruiz Soni Other [facility]10-14-2009 pneumococcal polysaccharide vaccine, 23 valentBekristal Soni Other [facility] Payers DatePayer CategoryPayerPolicy [id number] Health InsuranceTHRIVENT [id number] [id number] [id number] [id number] 2.16.840.2.083726.4346-10-1943 [id number] 2.16.840.1.754266.3.57[id number] 2.16.840.1.477484.3.57[id number] 2.16.840.1.188305.3.57[id number] 2.16.840.1.895849.3.57[id number] 2.16.840.1.936375.3.57[id number] 2.16.840.1.096946.3.57[id number] 2.16.840.1.219617.3.57[id number] 2.16.840.1.860381.3.57[id number] 2.16.840.1.226241.3.57[id number] 2.16.840.1.249146.3.57[id number] 2.16.840.1.941317.3.57[id number] 2.16.840.1.969585.3.57[id number] 2.16.840.1.681522.3.57[id number] 2.16.840.1.324410.3.57[id number] 2.16.840.1.883[id number] Social History DateTypeDetailFacilityStart: 03-04-2024 End: 93-62-5673Ski [facility] HospitalTob[facility] smoking statusNo Smoking Status [facility]tart: 10-02-2023 End: 59-50-6523Lpxajws smoking status NHISNever smoked tobacco (finding) [facility]art: 94-52-4197Npr Assigned At [facility]: 51-51-1704Znxqoou use and exposure Smokeless tobacco non-userNOMS HealthcareStart: 03-04-2024 End: 26-10-6661Crespilda beverage intakeLifetime non-drinker (finding)[facility] HealthcareStart: 03-04-2024 End: 97-78-0568Sxphavr of Social functionNOMS HealthcareStart: 26-20-4673Fphbpkw Commentcaffeine intake:1-2 cups per dayNOMS HealthcareStart: 84-87-9354Azh assigned at birthNot on fileNO HealthcareStart: 06-28-2024 End: 80-63-8959FdgXglcjt (finding)[facility] Medical Equipment Procedure CodeEquipment CodeEquipment Original TextEquipment IdentifierDatesUSE 1 STRIP TO CHECK GLUCOSE ONCE DAILYStart: 03-31-2023 Functional Status JufcZivwfngfhiTbmqlrJxozoitm54-45-5072Gxbptypcrm StatusN/A[facility]01-23-2024Functional StatusN/A[facility]07-03-2023Functional StatusN/A [facility] Clinical Notes 09-18-2022 to 05-17-2025 Note Date & LjvaEdygGewcvaaq08-25-7336 History of Present illness Narrative* Cheikh Bell, DPM - 05/17/2025 10:15 AM EDT Images from the original note [...] diabetic: 76, A1c 6.9 PCP: Dr. Jag Soni. Date of Last visit: 11/19/2024 Aggravated by: [...] developing from the overgrowth ofthe toenails. CPT 23385 documented in this encounterEllis Fischel Cancer CenterCblqryifte43-00-8487 Evaluation note* Diagnosis Onset Date Resolution Status Admit Date Acute bronchitis due to other specified organisms acuteJuly 2024 8:30amMaxillary sinusitisacuteJuly 2024 8:30amASHD (arteriosclerotic heart disease)acuteJuly 2024 10:27amGastroesophageal reflux disease with esophagitis without hemorrhageacuteJuly 2024 10:27am HypercholesterolemiaacuteJuly 2024 10:27amHypothyroidacuteJuly 2024 10:27amPrimary hypertensionacuteJuly 2024 10:27amThyroid noduleacuteJuly 2024 10:27amType 2 diabetes mellitus with hyperglycemiaacuteJuly 2024 10:27am [facility] Work Phone: 1(422) 789-666407-07-2025 History of Present illness Narrative* Cheikh Bell, DPSusu - 02/14/2025 10:00 AM EDT Images from the original [...] diabetic: 76, A1c 6.9 PCP: Dr. Jag Soni. Date of Last visit: 11/19/2024 Aggravated by: [...] developing from the overgrowth ofthe toenails. CPT 23829 documented in this encounterEllis Fischel Cancer CenterXklkdrrvvw83-95-8391 Evaluation note* Diagnosis Onset Date Resolution Status Admit Date Acute bronchitis due to other specified organisms acuteJuly 2024 3:37pmPrimary hypertensionacuteJuly 2024 3:37pm [facility] Work Phone: 1(815) 758-145307-01-2025 Evaluation note* Diagnosis Onset Date Resolution Status Admit Date Acute bronchitis due to other specified organisms acuteJuly 2024 3:37pmPrimary hypertensionacuteJuly 2024 3:37pmAcute bronchitis due to other specified organismsacuteJuly 2024 8:30amMaxillary sinusitisacuteJuly 2024 8:30amASHD (arteriosclerotic heart disease)acute Miriam 2024 10:27amGastroesophageal reflux disease with esophagitis without hemorrhageacuteJuly 2024 10:27amHypercholesterolemiaacuteJuly 2024 10:27amHypothyroidacuteJuly 2024 10:27amPrimary hypertensionacuteJuly 2024 10:27amThyroid noduleacuteJuly 2024 10:27amType 2 diabetes mellitus with hyperglycemiaacuteJuly 2024 10:27am [facility] Work Phone: 1(755) 712-825304-29-2025 History of Present illness Narrative* Cheikh Bell, MIGUELANGEL - 12/07/2024 10:00 AM EDT Images from [...] diabetic: 76, A1c 6.9 PCP: Dr. Jag Soni. Date of Last visit: 11/19/2024 Aggravated by: [...] developing from the overgrowth ofthe toenails. CPT 08948 documented in this encounterEllis Fischel Cancer CenterDhyloaxfsv12-98-4387 History of Present illness Narrative* Cheikh Bell [...] diabetic: 76, A1c 6.9 PCP: Dr. Jag Soni. Date of Last visit: 04/21/2024 Aggravated by: [...] developing from the overgrowth ofthe toenails. CPT 68441 documented in this encounterEllis Fischel Cancer CenterXswrdhdywb95-60-9550 Hospital Discharge instructions Patient Education 08/24/2024 10:13:38 [...] include: ?8 oz (237 mL) of milk, ixyorza-ssxkudnkriyc-wjyma milk, and calcium- fortifiedfruit juice. Calcium-fortified means [...] ?Spinach (cooked), rhubarb, beets, sweet potatoes, and Israeli chard. ?Peanuts. ?Potato chips, martiniquais fries, and baked potatoes with skin on. ?Nuts and nut products. ?Chocolate. If you regularly take a diuretic medicine, make sure to eat at least 1 or 2 servings of fruits or vegetables that are high in potassium each day. These include: ?Avocado. ?Banana. ?[place], prune, carrot, or tomato juice. ?Baked potato. [...] magnesium, fish oil, or vitamin B6. Take tjit-edz-alsshkv and prescription medicines only as told by [...] Casseroles. Pizza. Lasagna. Frozen meals. Potato chips. Bolivian fries. The items listed above may not [...] provider. Document Revised: 11/07/2022 Document Reviewed: 11/07/2022 Elsevier Patient Education 2023 [facility]. Follow Up Care 09/02/2023 09:43:32 With:JEISON HEARN, Andry Carcamo, URL Address: Peri HERNAN[address]Z [address] [place] [address]- When: Unknown [facility] Teri [id number] NotePatient Education Nephrology Dietary Guidelines to Help [...] ? 8 oz (237 mL) of milk, ppbxvnm-gvhprbvdgchm-lwyih milk, and calcium- fortifiedfruit juice. Calcium-fortified means [...] Spinach (cooked), rhubarb, beets, sweet potatoes, and Israeli chard. ? Peanuts. ? Potato chips, martiniquais fries, and baked potatoes with skin on. ? Nuts and nut products. ? Chocolate. ??? If you regularly take a diuretic medicine, make sure to eat at least 1 or 2 servings of fruits or vegetables that are high in potassium each day. These include: ? Avocado. ? Banana. ? [place], prune, carrot, or tomato juice. ? Baked [...] fish oil, or vitamin B6. ??? Take foei-nca-rjddyrx and prescription medicines only as told by your health (more content not included)...[facility]12-17-2024 History of Present illness Narrative* Cheikh Bell [...] diabetic: 76, A1c 6.9 PCP: Dr. Jag Soni. Date of Last visit: 04/21/2024 Aggravated by: [...] developing from the overgrowth ofthe toenails. CPT 66466 documented in this encounterEllis Fischel Cancer CenterCsunlhtwlz17-78-8440 History of Present illness Narrative* Sherita Arevalo MD - 07/22/2024 10:30 AM EST Assessment/Plan Diabetes Mellitus without sign of diabetic retinopathy on dilated retinal examination today OU: Discussed the pathophysiology of diabetes and its effect on the eye. Stressed the importance of strong glucose control. Advised of importance of at least yearly dilated examinations, but to contact us immediately for any problems or concerns. documented in this [facility]10-07-2024 History of Present illness Narrative* Cheikh [...] diabetic: 76, A1c 6.9 PCP: Dr. Jag Soni. Date of Last visit: 04/21/2024 Aggravated by: [...] excess pressure over the callous site. CPT 82919, 12550 documented in this encounterEllis Fischel Cancer CenterBbticoofpc29-71-9090 Evaluation note* Diagnosis Onset Date Resolution Status Admit Date ASHD (arteriosclerotic heart disease) acuteSeptember 2023 10:22amGastroesophageal reflux disease with esophagitis without hemorrhageacuteSept2023 10:22amHypercholesterolemiaacute Melanie 2023 10:22amHypothyroidacuteSeptember 2023 10:22amMedicare annual wellness visit, subsequentacuteSept2023 10:22amPrimary hypertensionacuteSeptember 2023 10:22amScreening mammogram for breast canceracuteSept2023 10:22amThyroid noduleacuteSept2023 10:22amType 2 diabetes mellitus with hyperglycemiaacuteSeptember 2023 10:22amCellulitis of leg without foot, rightacuteSeptember 2023 11:34am Laceration of leg not thigh, rightacuteSeptember 2023 11:34amType 2 diabetes mellitus with hyperglycemiaacuteSeptember 2023 11:34amCellulitis of leg without foot, rightacuteSeptember 2023 10:56amLaceration of leg not thigh, rightacuteSeptember 2023 10:56amType 2 diabetes mellitus with hyperglycemiaacuteSeptember 2023 10:56am [facility] Work Phone: 1([phone]) 936-508402-05-2024 Evaluation note* Encounter Date Diagnosis Assessment Notes Treatment Notes Treatment Clinical Notes Sep, Primary hypertension (ICD-10 - I 10) Sep,SHD (arteriosclerotic heart disease) (ICD-10 - I25.10) Sep,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 Calcium-fortified means [...] ?Spinach (cooked), rhubarb, beets, sweet potatoes, and Israeli chard. ?Peanuts. ?Potato chips, martiniquais fries, and baked potatoes with skin on. ?Nuts and nut products. ?Chocolate. If you regularly take a diuretic medicine, make sure to eat at least 1 or 2 servings of fruits or vegetables that are high in potassium each day. These include: ?Avocado. ?Banana. ?[place], prune, carrot, or tomato juice. ?Baked potato. [...] magnesium, fish oil, or vitamin B6. Take tcgu-xub-hlvnnui and prescription medicines only as told by [...] Casseroles. Pizza. Lasagna. Frozen meals. Potato chips. Bolivian fries. The items listed above may not [...] provider. Document Revised: 11/07/2022 Document Reviewed: 11/07/2022 [employer] Patient Education 2022 [facility]. Follow Up Care 06/30/2023 13:02:17 With:JEISON HEARN, Andry Carcamo, URL Address: [facility] [place] [address]- When:Within 1 Year(s) Comments:peggy/DANIAL [facility] Leon 11-20-2023 Evaluation note* Encounter Date Diagnosis Assessment Notes Treatment Notes Treatment Clinical Notes Jun, ASHD (arteriosclerotic heart dis ease) (ICD-10 - I25.10) This patient is stable without activity related CP, dyspnea or lightheadedness. They are instructedto continue exercise and AHA diet plan. Continue secondary prevention measures. Jun,ontrolled type 2 diabetes mellitus with hyperglycemia, without long-term current use of insulin (ICD-10 - E11.65)This patient is following a comprehensive diabetic treatment [...] Microalbumin, Dilated eye exam and Foot exam Jun,rimary hypertension (ICD-10 - I10)This patient is instructed to consume a healthy, low-fat, low-salt diet. They are also encouraged to continue exercise to achieve/maintain a normal BMI. Jun,OVID-19 (ICD-10 - U07.1)asymptomatic, day 8 and still contagious, wearing mask. Self isolate [...] in public places for complete 10 days Jun,Hyperlipidemia type II (ICD-10 - E78.01)Instructed on diet and exercise with continued statin therapy.Discussed the beneficial effects of lo wering cholesterol in reducing the risk for cerebrovascular and cardiovascular disease. 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 TSH mildly suppressed, no change recommended at this time Jun,Other specified hypothyroidism (ICD-10 - E03.8) Jun,astroesophageal reflux disease with esophagitis without hemorrhage (ICD-10 - K21.00)Diet instructions: Smaller portions, avoid eating and laying flat, avoid eating or drinking prior to bedtime. Weight loss. [facility] Other 11-14-2023 Evaluation note* Encounter Date Diagnosis [...] in public places for complete 10 days Jun,SHD (arteriosclerotic heart disease) (ICD-10 - I25.10)Increases risk for complications She is undervaccinated and at increased risk for prolonged illness Jun,IFG (impaired fasting glucose) (ICD-10 - R73.01)Increases risk for complications She is undervaccinated and at increased risk for prolonged illness [facility] Other 08-21-2023 Evaluation note* Encounter Date Diagnosis Assessment Notes Treatment Notes Treatment Clinical Notes Mar, Controlled type 2 di abetes mellitus with hyperglycemia, without long-term current use of insulin (ICD-10 - E11.65) [facility] Other 08-17-2023 Evaluation note* Encounter Date Diagnosis [...] reviewed and amended by provider signed below. Mar,SHD (arteriosclerotic heart disease) (ICD-10 - I25.10)This patient is stable without activity related CP, dyspnea or lightheadedness. They are instructedto continue exercise and AHA diet plan. Continue secondary prevention measures Mar,rimary hypertension (ICD-10 - I10)This patient is instructed to consume a healthy, low-fat, low-salt diet. They are also encouraged to continue exercise to achieve/maintain a normal BMI. Mar,Hyperlipidemia type II (ICD-10 - E78.01)Instructed on diet and exercise with continued statin therapy.Discussed the beneficial effects of lo wering cholesterol in reducing the risk for cerebrovascular and cardiovascular disease. 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 Weight loss. Mar,Screening mammogram for breast cancer (ICD-10 - Z12.31)Instructed on monthly SBE and yearly mammogram [facility] Other 07-17-2023 Evaluation note* Encounter Date Diagnosis Assessment Notes Treatment Notes Treatment Clinical Notes Feb, Superficial abscess of perineum (ICD-10 - L02.215) Warm soaks daily Keep area clean and dry Begin antibiotics. REcheck in 5 days Feb,ontrolled type 2 diabetes mellitus with hyperglycemia, without long-term current use of insulin (ICD-10 - E11.65)INcreases risk for prolonged, serious infection. [facility] Other 07-03-2023 Hospital Discharge instructions Patient Education [...] degrees. Follow Up Care 01/22/2023 09:52:05 With:Andry MARQUEZ Address: [address] [place], [place] [id number]- Business (1) When:6 months Comments:Call for followup appointment in about six months with an abdominal X- ray prior to your visit (my office needs to send an order for this study)I will get records from the [facility] to see what the CAT scan demonstrated in terms of whether or not you have more stones in your kidneys. This may change the follow-up date depending on findings.Have a great day! 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 They are instructedto continue exercise and AHA diet plan. December,Hyperlipidemia type II (ICD-10 - E78.01)Instructed on diet and exercise with continued statin therapy.Discussed the beneficial effects of lo wering cholesterol in reducing the risk for cerebrovascular and cardiovascular disease. December,rimary hypertension (ICD-10 - I10)This patient is instructed to consume a healthy, low-fat, low-salt diet. They are also encouraged to continue exercise to achieve/maintain a normal BMI. December,AD (generalized anxiety disorder) (ICD-10 - F41.1)Healthy diet, keep active and exercise. Denies any panic episodes. December,astroesophageal reflux disease with esophagitis without hemorrhage (ICD-10 - K21.00)Diet instructions: Smaller portions, avoid eating and laying flat, avoid eating or drinking prior to bedtime. Weight loss. December,utoimmune hypothyroidism (ICD-10 - E06.3)Euthyroid, yearly TSH December,Other specified hypothyroidism (ICD-10 - E03.8) December,Screening mammogram for breast cancer (ICD-10 - Z12.31) [facility] Other 03-07-2023 Evaluation note* Encounter Date Diagnosis Assessment Notes Treatment Notes Treatment Clinical Notes Oct, Acute bronchitis due to other sp ecified organisms (ICD-10 - J20.8) Instructed to use Robitussin or Mucinex for cough, saline or Flonase NS for congestion, Tylenol forpain and fever. Instructed to test for COVID and update office w/ results Oct,SHD (arteriosclerotic heart disease) (ICD-10 - I25.10)This patient is stable without activity related CP, dyspnea or lightheadedness. They are instructedto continue exercise and AHA diet plan. [facility] Other 02-08-2023 Evaluation note* Encounter Date Diagnosis Assessment Notes Treatment Notes Treatment Clinical Notes Sep, ASHD (arteriosclerotic heart dis ease) (ICD-10 - I25.10) This patient is stable without activity related CP, dyspnea or lightheadedness. They are instructedto continue exercise and AHA diet plan. Sep,ontrolled type 2 diabetes mellitus with hyperglycemia, without long-term current use of insulin (ICD-10 - E11.65)This patient is following a comprehensive diabetic treatment plan. They are checking their feet daily for calluses and nonhealing ulcers. They are being seen for yearly dilated eye examinations. Goals: SBP less than 130, LDL less than 100, FBS less than 140, AC and A1C less than 7%. They are checking their BS daily, will which are reviewed at the office visit. Sep,rimary hypertension (ICD-10 - I10)This patient is instructed to consume a healthy, low-fat, low-salt diet. They are also encouraged to continue exercise to achieve/maintain a normal BMI. Sep,Hyperlipidemia type II (ICD-10 - E78.01)Diet and exercise with continued statin therapy. Sep,astroesophageal reflux disease with esophagitis without hemorrhage (ICD-10 - K21.00)Diet instructions: Smaller portions, avoid eating and laying flat, avoid eating or drinking prior to bedtime. Weight loss. 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)Euthyroid, TSH yearly w/ MWE [facility] Other Evaluation + Plan note No data available for this section [facility] Future Appointments Appointment Date:08/24/2024 09:45:00 AM Scheduled Provider:Andry MARQUEZ MD Location:[facility] Appointment Type:URO Office Visit [facility] Evaluation noteNo InformationNortHeritage Valley Health System [employer] Other Evaluation note* Diagnosis Onset Date Resolution Status ASHD (arteriosclerotic heart disease) acuteGastroesophageal reflux disease with esophagitis without hemorrhageacute Hyperlipidemia type IIacuteHypothyroidacutePrimary hypertensionacuteType 2 diabetes mellitus with hyperglycemiaacute [facility] Work Phone: Evaluation note* Diagnosis Onset Date Resolution Status ASHD (arteriosclerotic heart disease) acuteGastroesophageal reflux disease with esophagitis without hemorrhageacute HypercholesterolemiaacuteHypothyroidacuteMedicare annual wellness visit, subsequentacutePrimary hypertensionacuteScreening mammogram for breast cancer acuteThyroid noduleacuteType 2 diabetes mellitus with hyperglycemiaacute [facility] Work Phone: Evaluation note* Diagnosis Onset Date Resolution Status ASHD (arteriosclerotic heart disease) acuteGastroesophageal reflux disease with esophagitis without hemorrhageacute HypercholesterolemiaacuteHypothyroidacuteMedicare annual wellness visit, subsequentacutePrimary hypertensionacuteScreening mammogram for breast cancer acuteThyroid noduleacuteType 2 diabetes mellitus with hyperglycemiaacute Cellulitis of leg without foot, rightacuteLaceration of leg not thigh, right acuteType 2 diabetes mellitus with hyperglycemiaacuteCellulitis of leg without foot, rightacuteLaceration of leg not thigh, rightacuteType 2 diabetes mellitus with hyperglycemiaacute [facility] Work Phone: Evaluation note* Diagnosis Onychomycosis- Primary [...] stated as uncontrolled [facility] Healthcare[facility]* Diagnosis Onset Date Resolution Status Admit Date ASHD (arteriosclerotic heart disease) acuteMarch 2024 10:21amGastroesophageal reflux disease with esophagitis without hemorrhageacuteMarch 2024 10:21amHypercholesterolemiaacuteMarch 2024 10:21amHypothyroidacuteMarch 2024 10:21amPrimary hypertension acuteMarch 2024 10:21amThyroid noduleacuteMarch 2024 10:21amType 2 diabetes mellitus with hyperglycemiaacuteMarch 2024 10:21am [facility] Work Phone: Evaluation note* Diagnosis Onset Date Resolution Status Admit Date Acute bronchitis due to other specified organisms acuteJuly 2024 3:37pmPrimary hypertensionacuteJuly 2024 3:37pm [facility] Work Phone: Evaluation note* Diagnosis Onychomycosis- Primary Dermatophytosis of nail Pain in both feet Type II diabetes mellitus with neurological manifestations (HCC) Type II or unspecified type diabetes mellitus with neurological manifestations, not stated as uncontrolled 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 documented in this encounter [facility] HealthcareEvaluation note* Diagnosis Onychomycosis- Primary Dermatophytosis of nail Pain in both feet Type II diabetes mellitus with neurological manifestations (HCC) Type II or unspecified type diabetes mellitus with neurological manifestations, not stated as uncontrolled documented in this encounter [facility] HealthcareHistory general Narrative - Reported* Type Description Date Medical History Arthritis of left shoulder regio n Medical HistoryAcquired autoimmune hypothyroidismMedical HistoryGastroesophageal reflux disease with esophagitis without hemorrhageMedical HistoryHyperlipidemia type IIMedical HistoryEssential hypertensionMedical HistoryControlled type 2 diabetes mellitus with hyperglycemia, without long-term current use of insulin Medical HistoryASHD (arteriosclerotic heart disease)Medical HistoryCOVIDMedical HistoryC. difficile diarrheaMedical HistoryMenopauseMedical HistoryTongue fissureMedical HistoryDry mouthMedical HistoryCystic thyroid noduleMedical HistoryFamily history of thyroid cancerMedical HistoryAbdominal bruitMedical HistoryAcute cystitis without hematuriaMedical HistoryGAD (generalized anxiety disorder)Medical HistoryAcute pharyngitis due to other specified organisms Medical HistoryAcute abscess of maxillary sinusSurgical [id number] [id number] HistoryRIGHT BREAST [id number] HistorySEE SURGICAL HX Lanyrd Other History general Narrative - Reported* Type Description Date Medical History Arthritis of left shoulder regio n Medical HistoryAcquired autoimmune hypothyroidismMedical HistoryGastroesophageal reflux disease with esophagitis without hemorrhageMedical HistoryHyperlipidemia type IIMedical HistoryEssential hypertensionMedical HistoryControlled type 2 diabetes mellitus with hyperglycemia, without long-term current use of insulin Medical HistoryASHD (arteriosclerotic heart disease)Medical HistoryCOVIDMedical HistoryC. difficile diarrheaMedical HistoryMenopauseMedical HistoryTongue fissureMedical HistoryDry mouthMedical HistoryCystic thyroid noduleMedical HistoryFamily history of thyroid cancerMedical HistoryAbdominal bruitMedical HistoryAcute cystitis without hematuriaMedical HistoryGAD (generalized anxiety disorder)Medical HistoryAcute pharyngitis due to other specified organisms Medical HistoryAcute abscess of maxillary sinusSurgical [id number] [id number] HistoryRIGHT BREAST [id number] History Right ureteral stone extraction/stent placement01/2023Hospitalization HistorySEE SURGICAL HX Lanyrd Other Progress note No data available for this section [facility] (narrative)No reason for referral information availableAultman Hospital Work Phone: Summary Purpose Family History No Family History Records FoundNo Family History Records Found No data available for this section No data available for this section No Family History Records FoundNo Family History Records Found Advance Directives Advance Directive Response Recorded Date/ Time Advance [...] mellitus with hyperglycemia Chief Complaint wellness leg rednessReason for VisitASHD (arteriosclerotic heart disease) Gastroesophageal reflux disease with esophagitis without hemorrhage Hypercholesterolemia Hypothyroid Medicare annual wellness visit, subsequent Primary hypertension Screening mammogram for breast cancer Thyroid nodule Type 2 diabetes mellitus with hyperglycemia Chief Complaint wellness leg redness one week f/uReason for VisitASHD (arteriosclerotic heart disease) Gastroesophageal reflux disease with esophagitis [...] Complaint wellness leg redness one week f/u fluReason for VisitASHD (arteriosclerotic heart disease) Gastroesophageal reflux disease with esophagitis [...] Visit Admit Date ASHD (arteriosclerotic heart disease) [facility] 2024 10:21am Gastroesophageal reflux dise ase with [...] 2025 8:30 am ASHD (arteriosclerotic heart disease) [facility] 2024 10:27am Gastroesophageal reflux dise ase with esophagitis without hemorrhage March 07, 2025 10:27am Hypercholesterolemia March 07, 2025 10: 27am Hypothyroid March 07, 2025 10:2 7am Primary hypertension March 07, 2025 10: 27am Thyroid nodule March 07, 2025 10:2 7am Type 2 diabetes mellitus with hyperglyce elena March 07, 2025 10:27am Chief Complaint Admit Date still not feeling well February 21, 2025 8 :30am 4 month f/u March 07, 2025 10:2 7am Flu Shot May 20, 2025 8 :40am Reason for Visit Admit Date Acute bronchitis due to other specified organisms February 21, 2025 8:30am Maxillary sinusitis February 21, 2025 8:30 am ASHD (arteriosclerotic heart disease) Ju ly 2024 10:27am Gastroesophageal reflux dise ase with [...] section and content) DATE CREATED AUTHOR 01/29/2018 [facility] DATE CREATED AUTHOR AUTHOR'S ORGANIZ ATION 11/16/2022 [facility] DATE CREATED AUTHOR AUTHOR'S ORGANIZ ATION 08/27/2024 [facility] DATE CREATED AUTHOR AUTHOR'S ORGANIZ ATION 05/19/2025 [facility] EPIC REASON FOR VISIT (unrecogniz ed section and content) ReasonCommentsEye ExamDiabetic Eye Exam Patient Care team informatio n (unrecognized section and content) Team Status: Active Member Role Status Dates Ruiz Soni DO Primary Care Provider Active Team Status: Inactive Member Role Status Dates Ruiz Soni DO Primary Care Provide r, Attending Provider Active Start: April 13, 2024 End: April 13, 2024 Team Status: Active Member Role Status Dates Ruiz Soni DO Primary Care Provide r, Attending Provider Active Start: October 13, 2023 Team Status: Inactive Member Role Status Dates Ruiz Soni DO Primary Care Provide r, Attending Provider Active Start: January 07, 2024 End: January 07, 2024 Team Status: Active Member Role Status Layo Soni DO Primary Care Provide r, Attending Provider Active Start: April 21, 2024 Team Status: Inactive Member Role Status Dates Ruiz Soni DO Primary Care Provide r, Attending Provider Active Start: April 21, 2024 End: April 21, 2024 Team Status: Inactive Member Role Status Dates Ruiz Soni DO Primary Care Provide r, Attending Provider Active Start: April 30, 2024 End: April 30, 2024Team MemberRelationshipSpecialtyStart DateEnd Date Ruiz Soni MD [address] [place] [id number] PCP - GeneralInternal [facility]04/10/23Team MemberRelationshipSpecialtyStart Date End Date Ruiz Soni MD [address] [place] [phone] [facility]04/10/23 Team Status: Inactive Member Role Status Dates Ruiz Soni DO Primary Care Provide r, Attending Provider Active Start: May 31, 2024 End: May 31, 2024 Team Status: Inactive Member Role Status Dates Ruiz Soni DO Primary Care Provide r, Attending Provider Active Start: June 28, 2024 End: June 28, 2024Team MemberRelationshipSpecialtyStart DateEnd Date Ruiz Soni MD [address] [place] [address] PCP - [facility]04/10/23Team MemberRelationshipSpecialtyStart Date End Date Ruiz Soni MD [address] [place] [address] PCP - [facility]04/10/23Team MemberRelationshipSpecialtyStart Date End Date Ruiz Soni MD [address] [place] [address] [facility] - [facility]10/23Team MemberRelationshipSpecialtyStart Date End Date Ruiz Soni MD [address] [place] [address] PCP - [facility]04/10/23 Team Status: Inactive Member Role Status Dates Ruiz Soni DO Primary Care Provide r, Attending Provider Active Start: October 25, 2024 End: October 25, 2024Team MemberRelationshipSpecialtyStart DateEnd Date Ruiz Soni MD [address] [facility] [address] PCP - GeneralInternal Medicine12/07/24Team MemberRelationshipSpecialtyStart Date End Date Ruiz Soni MD [address] [facility] [address] PCP - GeneralInternal Medicine12/07/24 Team Status: Inactive Member Role Status Dates Ruiz Soni DO Primary Care Provider Active Start: February 08, 2025 End: February 08ensegundo Soni DOAttalverto ProviderActiveStart: February 08, 2025 End: February 08, 2025Team MemberRelationshipSpecialtyStart DateEnd Date Ruiz Soni DO [address] [place] [phone] PCP - GeneralInternal Medicine12/07/24Team MemberRelationshipSpecialtyStart Date End Date Ruiz Soni DO [address] [place] [phone] [facility] - [facility]12/07/24 Team Status: Inactive Member Role Status Dates Ruiz Soni DO Primary Care Provider Active Start: February 21, 2025 End: February 21, 2025Jennifer Garza APRN HEALTH AND WELLNESS ADVISOR-CAttending ProviderActive Start: February 21, 2025 End: February 21, 2025 Team Status: Inactive Member Role Status Dates Ruiz Soni DO Primary Care Provider Active Start: March 07, 2025 End: March 07macario Soni DOAttending ProviderActiveStart: March 07, 2025 End: March 07, 2025Team MemberRelationshipSpecialtyStart DateEnd Date Ruiz Soni DO [address] [facility] [address] PCP - GeneralInternal Medicine12/07/24 Team Status: Inactive Member Role Status Dates Ruiz Soni DO Primary Care Provider Active Start: May 20, 2025 End: May 20, 2025Jennifer Garza APRN HEALTH AND WELLNESS ADVISOR-CAttending ProviderActive Start: May 20, 2025 End: May 20, 2025 Goals (unrecognized section and content) Goals may [...] BE BASED ON THE PRIMARY CLINICAL RECORDS. [employer] provides no warranty or guarantee of the accuracy or completeness of information in this document.
== END 2025-06-14 14:40 | disposition home or self-care (01) ==
LOC: MAMMO 14:39
PROVIDERS: PCP Internal Medicine; Visit Provider Internal Medicine
DX: Z12.31 Encounter for screening mammogram for malignant neoplasm of breast (principal); Z80.3 Family history of malignant neoplasm of breast
CPT/HCPCS: 77063; 77067